=== PATIENT | female | born 1950 | race Caucasian/White ===

== ENCOUNTER 2023-02-11 14:14 | Outpatient (OUT) | payer MEDICARE, SELFPAY ==
--- NOTE | 2023-02-11 14:00 | CA_ITS ---
Patient: NAGI ALLISON Exam Date: 02/11/2023 : 1950 Gender:F Ordering : JAMIA CAR [facility] Admission #: [id number] Family : Order #: [id number] CLICK HERE TO VIEW EXAM ECHOCARDIOGRAM REPORT PROCEDURE: CA ECHO DOPPLER COMPLETE INDICATIONS: Shortness of breath, hypertension, diabetes, COPD, h/o rheumatic fever COMPARISON: None. DESCRIPTION: COMPLETE ECHOCARDIOGRAM Real-time transthoracic echocardiography with 2D, M-mode, spectral and color flow Doppler performed. QUALITY: Technical quality was good. LEFT VENTRICLE: Small chamber size. Proximal septal hypertrophy (sigmoid septum). Normal systolic function. LV EF: Normal left ventricular ejection fraction, (>55%). DIASTOLIC: Normal diastolic function. ATRIAL SEPTUM: LEFT ATRIUM: Mildly dilated. RIGHT ATRIUM: Normal chamber size. RIGHT VENTRICLE: Normal chamber size. Normal right ventricular systolic function. TRICUSPID VALVE: Normal mobility and thickness. No stenosis with mild regurgitation. No evidence of pulmonary hypertension. RVSP 28 mmHg MITRAL VALVE: Mildly thickened with normal mobility. No evidence of mitral valve stenosis. Moderate mitral annular calcification. Mild mitral regurgitation. AORTIC VALVE: Normal trileaflet appearance. No visible sclerosis. Normal leaflet mobility. No evidence of aortic valve stenosis. Trivial aortic regurgitation. AORTIC ROOT: Normal diameter and appearance. PULMONIC VALVE: Normal thickness and mobility. No stenosis. Trivial regurgitation. PERICARDIUM: No evidence of pericardial effusion. IVC: Not well visualized. PLEURA: CONCLUSION: 1. Normal ventricular systolic function. LVEF is 55 to 60%. 2. Normal diastolic function. 3. Mild mitral and tricuspid regurgitation. 4. Normal right-sided pressures. 5. No pericardial effusion. Adult Echocardiography Procedure Report Left Ventricle LVEDD (3.7 - 5.6 cm): 3.36 cm LVESD (2.2 - 4.0 cm): 2.46 cm LVIVS thickness (0.6 - 1.2 cm): 1.10 cm LVPW thickness (0.5 - 1.0 cm): 0.93 cm e': 0.11 m/s E - e': 9.00 LVOT Max Gradient: 4.14 mm[Hg] LVOT Area (cm2): 1.02 m/s Peak Velocity (LVOT): 1.02 m/s Mean Velocity (LVOT): 0.72 m/s LVOT Diameter 1.62 cm, 1.91 cm Left Atrium LA Volume Index (2D A2C): 29.89 ml/m2 Left Atrium Systolic Dimension: 3.16 cm Mitral Valve MV E to A Ratio: 0.84 Mitral Valve A-Wave Peak Velocity: 1.19 m/s Mitral Valve E-Wave Peak Velocity: 0.99 m/s Right Ventricle Aorta AO Root Diam: 2.65 cm Ascending Ao Diam: 2.17 cm Aortic Valve AoV Area (Peak Jarvis): 2.36 cm2, 2.36 cm2 AoV Area (VTI): 2.55 cm2, 2.55 cm2 Peak Velocity(Antegrade Flow): 1.06 m/s Peak Gradient(Antegrade Flow): 4.46 mm[Hg] Mean Velocity(Antegrade Flow): 0.71 m/s Mean Gradient(Antegrade Flow): 2.30 mm[Hg] Velocity Time Integral: 24.29 cm Tricuspid Valve Peak Velocity (Regurgitant Flow): 2.51 m/s Pulmonic Valve Peak Velocity: 0.99 m/s Peak Gradient: 3.65 mm[Hg], 4.14 mm[Hg] Right Atrium Right Atrium Systolic Pressure: 30.55 ml, 30.55 ml Dictated by: Zion Castaneda M.D. on 02/12/2023 at 18:45 Approved by: Zion Castaneda M.D. on 02/12/2023 at 18:51
== END 2023-02-11 14:15 | disposition home or self-care (01) ==
LOC: CARD 14:14
PROVIDERS: Visit Provider Nurse Practitioner Family
DX: R06.02 Shortness of breath (principal)
CPT/HCPCS: 93306

== ENCOUNTER 2023-03-08 12:20 | Outpatient (OUT) | payer MEDICARE, SELFPAY ==
[2023-03-08 13:27] LABS: Anion Gap 12.5; BUN Creatinine Ratio 33.3; Calcium 10.3 mg/dL (8.5-10.1); Carbon Dioxide 23.2 mmol/L (21.0-32.0); Chloride 103 mmol/L (98-107); Estimated GFR (African America >60 (>=60); Estimated GFR (Non-African Ame >60 (>=60); Glucose 110 mg/dL (74-106); Potassium 3.7 mmol/L (3.5-5.1); Sodium 135 mmol/L (136-145)
== END 2023-03-08 12:21 | disposition home or self-care (01) ==
LOC: LAB 12:21
PROVIDERS: Visit Provider Nurse Practitioner Acute Care
DX: I50.32 Chronic diastolic (congestive) heart failure (principal)
CPT/HCPCS: 36415; 80048

== ENCOUNTER 2023-06-16 14:56 | Outpatient (OUT) | payer MEDICARE, SELFPAY | END 2023-06-16 14:57 | disposition home or self-care (01) | LOC: LAB 14:58 | DX: N39.0 Urinary tract infection, site not specified (principal); R30.0 Dysuria | CPT/HCPCS: 87086; 87150; 87186 ==

== ENCOUNTER 2023-07-10 09:01 | Outpatient (OUT) | payer MEDICARE, SELFPAY ==
[2023-07-10 09:27] LABS: Basophils Absolute Auto 0.1 10^3/uL (0.0-0.1); Basophils Percent Auto 1.2 % (0.2-2.0); Eosinophils Absolute Auto 0.3 10^3/uL (0.0-0.7); Eosinophils Percent Auto 3.8 % (0.9-7.0); Hematocrit 38.9 % (36.0-48.0); Hemoglobin 12.7 g/dL (12.0-16.0); Immature Granulocytes Abs Auto 0.03 10^3/uL (0.00-0.03); Immature Granulocytes Pct Auto 0.4 % (0.0-0.5); Lymphocytes Absolute Auto 1.5 10^3/uL (1.2-3.8); Lymphocytes Percent Auto 22.7 % (20.5-60.0); Mean Corpuscular HGB Conc 32.6 g/dL (29.9-35.2); Mean Corpuscular Hemoglobin 30.2 pg (26.7-34.0); Mean Corpuscular Volume 92.4 fL (81.0-99.0); Mean Platelet Volume 9.7 fL (9.5-13.5); Monocytes Absolute Auto 0.5 10^3/uL (0.3-0.8); Monocytes Percent Auto 6.9 % (1.7-12.0); Neutrophils Absolute Auto 4.4 10^3/uL (1.4-6.5); Platelet Count 294 10^3/uL (150-450); Red Blood Count 4.21 10^6/uL (4.20-5.40); Red Cell Distribution Width 12.9 % (11.0-15.0); White Blood Count 6.8 10^3/uL (4.0-11.0)
[2023-07-10 11:14] LABS: Alanine Aminotransferase 23 U/L (14-59); Albumin Globulin Ratio 1.2; Albumin Level 4.1 g/dL (3.4-5.0); Alkaline Phosphatase 68 U/L (46-116); Anion Gap 16.3; Aspartate Amino Transferase 16 U/L (15-37); BUN Creatinine Ratio 34.2; Bilirubin Total 0.4 mg/dL (0.2-1.0); Calcium 9.6 mg/dL (8.5-10.1); Chloride 108 mmol/L (98-107); Chol HDL Ratio 2.7; Cholesterol 158 mg/dL (<=200); Estimated GFR (African America >60 (>=60); Estimated GFR (Non-African Ame >60 (>=60); Globulin 3.4 g/dL; Glucose 103 mg/dL (74-106); HDL Cholesterol 59 mg/dL (40-60); LDL Cholesterol Calculated 79.4 mg/dL; Potassium 4.3 mmol/L (3.5-5.1); Sodium 144 mmol/L (136-145); Total Protein 7.5 g/dL (6.4-8.2); Triglycerides 98 mg/dL (<=150); VLDL CHOLESTEROL 19.6 mg/dL
== END 2023-07-10 09:02 | disposition home or self-care (01) ==
LOC: LAB 09:03
DX: K21.9 Gastro-esophageal reflux disease without esophagitis (principal); I10 Essential (primary) hypertension; Z51.81 Encounter for therapeutic drug level monitoring; Z13.6 Encounter for screening for cardiovascular disorders
CPT/HCPCS: 36415; 80053; 80061; 85025

== ENCOUNTER 2023-07-15 10:18 | Outpatient (OUT) | payer MEDICARE, SELFPAY ==
--- NOTE | 2023-07-15 10:24 | MR_ITS ---
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 TECHNIQUE: Multiplanar, multisequential MRI images of cervical spine were obtained with without contrast. FINDINGS: There is normal physiologic cervical lordosis. The vertebral heights are relatively preserved. The cervicomedullary junction is unremarkable. No definite signal abnormality within the spinal cord is noted. There is mild enlargement of the central spinal canal at the level of C7-T1 measuring approximately 2.2 cm craniocaudally. It measures 2.2 mm anteroposteriorly. This most likely consistent with mild syrinx. There are mild disc osteophyte complex associated with uncovertebral joint arthrosis from C3 to T1. Mild right neuroforaminal narrowing and no canal stenosis at the level of C2-C3 is noted. At the level of C3-C4, there is moderate right and mild left neuroforaminal narrowing and no canal stenosis. At the level of C4-C5, there is moderate right and mild left neuroforaminal narrowing and no canal stenosis. At the level of C5-C6, there is moderate bilateral neuroforaminal narrowing and no canal stenosis. At the level of C6-C7, there is mild bilateral neuroforaminal narrowing and no canal stenosis. Level of C7-T1 is unremarkable. No definite muscular or ligamentous injury is noted. MR/MR cervical spine wo con IMPRESSION: Mild degenerative changes of the cervical spine in particular at C6-C7. Small syrinx from C7 to T1. Electronically authenticated by: NILDA HUTCHISON Date: 07/15/2023 12:40
== END 2023-07-15 10:19 | disposition home or self-care (01) ==
LOC: MRI 10:18
PROVIDERS: Visit Provider Psychiatry & Neurology Neurology
DX: G95.89 Other specified diseases of spinal cord (principal); G95.0 Syringomyelia and syringobulbia; M50.30 Other cervical disc degeneration, unspecified cervical region
CPT/HCPCS: 72141

== ENCOUNTER 2023-10-25 15:37 | Outpatient (OUT) | payer MEDICARE, SELFPAY ==
--- NOTE | 2023-10-25 15:43 | XR_ITS ---
The [address] [address] Patient Name: NAGI ALLISON MRN: [id number] date: 1950 Sex: F Assigned Patient Location: [facility] Current Patient Location: [facility] Accession/Order Number: [id number] Exam Date: 10/25/2023 15:51 Report Date: 10/25/2023 16:06 At the request of: BARTOLO CARVALHO Procedure: XR chest 2V EXAM: XR chest 2V HISTORY: wheezing R06.2, Shortness of breath R06.02 COMPARISON: 08/01/2019 TECHNIQUE: Upright PA and lateral chest x-ray FINDINGS: The heart is not enlarged and the vasculature is not distended. No acute infiltrate, effusion or pneumothorax is identified. Scoliosis and mild degenerative changes are seen in the spine. XR/XR chest 2V IMPRESSION: No acute infiltrate or evidence of cardiac decompensation. The study is a bit limited by the patient's depth of inspiration. Given the differences in technique, the overall appearance of the chest is essentially unchanged. Electronically authenticated by: MARÍA METZ Date: 10/25/2023 16:06
== END 2023-10-25 15:38 | disposition home or self-care (01) ==
LOC: RAD 15:39
PROVIDERS: Visit Provider Psychiatry & Neurology Neurology
DX: R06.2 Wheezing (principal); R06.02 Shortness of breath
CPT/HCPCS: 71046

== ENCOUNTER 2024-02-20 12:08 | Emergency (ER) | payer MEDICARE, SELFPAY ==
[2024-02-20 12:21] VITALS: BP 147/90; PULSE 83; TEMP 36.8; O2SAT 97; BMI 27.9
--- NOTE | 2024-02-20 14:54 | ED_ITS ---
HPI HPI - General Adult General Chief complaint: Ear Stated complaint: FOREIGN BODY IN EAR Time Seen by Provider: 02/20/24 13:39 Source: patient Mode of arrival: walk-in History of Present Illness HPI narrative: 73-year-old female to the emergency department chief complaint of hearing aid cushion stuck in her left ear. She reports she took it out last night and noticed it was missing. No discomfort. She would like it removed. Related Data Allergies Allergy/AdvReac Type Severity Reaction Status Date / Time amoxicillin Allergy Severe Unknown Verified 02/20/24 12:31 azithromycin Allergy Severe Unknown Verified 02/20/24 12:31 bacitracin Allergy Severe Unknown Verified 02/20/24 12:31 chlorhexidine Allergy Severe Unknown Verified 02/20/24 12:33 [From Hibiclens] clindamycin Allergy Severe Unknown Verified 02/20/24 12:33 latex Allergy Severe Unknown Verified 02/20/24 12:31 meloxicam [From Mobic] Allergy Severe Unknown Verified 02/20/24 12:33 metronidazole Allergy Severe Unknown Verified 02/20/24 12:31 montelukast Allergy Severe Unknown Verified 02/20/24 12:31 neomycin Allergy Severe Unknown Verified 02/20/24 12:31 [From Neosporin ([id number])] polymyxin B Allergy Severe Unknown Verified 02/20/24 12:31 [From Neosporin ([id number])] Sulfa (Sulfonamide Allergy Severe Unknown Verified 02/20/24 12:33 Antibiotics) Opioid HPI Opioid Management Most Recent Opioid Data: No Data to Display Review of Systems ROS Status of ROS 10 or more systems reviewed and unremark able except as noted in history and below Exam Narrative Exam Narrative: VITALS: I have reviewed the triage vital signs. GENERAL: Well developed, well appearing adult in no acute distress. HENT: Normocephalic, atraumatic. Hearing is grossly intact. Nares grossly patent and without discharge. Mucous membranes moist. Hearing aid cushion midway in the external auditory canal on the left PSYCH: Mood, affect, and interaction is appropriate to the setting. Constitutional Vital Signs, click to edit/add: Last Vital Signs Temp 98.2 F 02/20/24 12:21 Pulse 83 02/20/24 12:21 Resp 14 02/20/24 12:21 BP 147/90 H 02/20/24 12:21 Pulse Ox 97 02/20/24 12:21 O2 Del Method Room Air 02/20/24 12:21 Course Vital Signs Vital signs: Vital Signs Temperature 98.2 F 02/20/24 12:21 Pulse Rate 83 02/20/24 12:21 Respiratory Rate 14 02/20/24 12:21 Blood Pressure 147/90 H 02/20/24 12:21 Pulse Oximetry 97 02/20/24 12:21 Oxygen Delivery Method Room Air 02/20/24 12:21 Temperature 98.2 F 02/20/24 12:21 Pulse Rate 83 02/20/24 12:21 Respiratory Rate 14 02/20/24 12:21 Blood Pressure 147/90 H 02/20/24 12:21 Pulse Oximetry 97 02/20/24 12:21 Oxygen Delivery Method Room Air 02/20/24 12:21 Medical Decision Making MDM Narrative Medical decision making narrative: Cushion easily removed with steps. No residual foreign bodies. TM intact. Patient was discharged home. Discharge Plan Discharge Stand Alone Forms: Portal Instructions Chief Complaint: Ear Clinical Impression: Ear foreign body Patient Disposition: Home, Self-Care Time of Disposition Decision: 14:25 Condition: Good Mode of Transportation: Private Vehicle Print Language: Prydeinig Instructions: Ear Foreign Body (ED) Referrals: LISA GRAHAM [Primary Care Provider] - 1 week Discharge Date/Time: 02/20/24 14:31
== END 2024-02-20 14:31 | disposition home or self-care (01) ==
PROVIDERS: Emergency Provider Student in an Organized Health Care Education/Training Program
DX: T16.2XXA Foreign body in left ear, initial encounter (principal); W44.G1XA Audio device entering into or through a natural orifice, initial encounter
CPT/HCPCS: 69200; 99281

== ENCOUNTER 2024-07-07 08:54 | Outpatient (OUT) | payer MEDICARE, SELFPAY ==
--- OUTSIDE RECORDS SUMMARY | 2024-07-07 08:59 | XMS_ITS | CCD ---
Author Organization [facility]ini[facility] Care Team Providers Care Delicatessen Department Manager Name Role Phone Lisa Graham Unavailable Piyush Bo Unavailable [phone] Teto Veloz Unavailable GladysLisa clark Unavailable Madeline Duffy Unavailable Madeline Hernandez Primary Care Provider [phone] Terrell Rodriguez Unavailable GLADYS, LISA Primary Care Unavailable JOSEP, JAMIA Admitting Unavailable JOSEP, JAMIA Consulting Unavailable JOSEP, JAMIA Attending Unavailable CRISTIAN CARINDA Attending Unavailable MINERVA HERRERA Consulting Unavailable GLADYS, LISA Primary Care Unavailable JOSEP, JAMIA Admitting Unavailable JOSEP, JAMIA Consulting Unavailable FOSTER COLES Consulting Unavailable BAMBI SIMMONS Admitting Unavailable BAMBI SIMMONS Attending Unavailable GLADYS, LISA Primary Care Unavailable JANETTE ZAMUDIO Consulting Unavailable GLADYS, LISA Primary Care Unavailable GLADYS, LISA Attending Unavailable GLADYS, LISA Admitting Unavailable GLADYS, LISA Primary Care Unavailable GLADYS, LISA Consulting Unavailable GLADYS, LISA Attending Unavailable GLADYS, LISA Admitting Unavailable Gladys, DO Lisa Pastrana Primary Care Provider DO Lisa Graham Attending Provider MD Piyush Bo Attending Provider Mick Patterson Unavailable Marco Antonio Llamas Unavailable DO Lisa Graham Primary Care Provider [phone] Gladys, DO Lisa N Attending Provider Gladys, DO Lisa N Primary Care Provider [phone] Gladys, DO Lisa N Attending Provider EPIFANIO LOZADA Attending Unavailable JAMIA CAR Attending Unavailable DEN KEY Attending Unavailable NICOLE BECKHAM Attending Unavailable Lisa Graham MD Primary Care Provider [phone] Gladys, DO Lisa N Primary Care Provider Gladys, DO Lisa N Attending Provider Gladys, DO Lisa N Admit Provider Leigh, DO Lambert Jernigan Emergency Provider [phone] GARETH Chen Other Provider Unavailable MD Rober Damico Other Provider MD Dolores Frausto Other Provider [phone] MD Emmanuelle Tipton Other Provider Terrell Rodriguez Unavailable [phone] Gladys DOLisa Primary Care Provider Unavailable Foster Gutierrez RPh Unavailable Gladys DO, Lisa Bernal Primary Care Provider Unavailable ANDREA DALEY Attending Unavailable GLADYS, LISA N Referring Unavailable GLADYS, LISA N Primary Care Unavailable Gladys, DO Lisa N Primary Care Provider [phone] AWILDA Duffy Attending Provider Gladys, Lisa N Primary Care Unavailable Gladys, Lisa N Attending Unavailable Gladys, Lisa N Admitting Unavailable Gladys, Lisa N Primary Care Unavailable Gladys, Lisa N Attending Unavailable Gladys, Lisa N Admitting Unavailable Gladys, Lisa N Primary Care Unavailable Madeline Duffy Admitting Unavailable Madeline Duffy Attending Unavailable Madeline Duffy Admitting Unavailable Gladys, Lisa N Primary Care Unavailable Madleine Duffy Attending Unavailable Sylvia Chen Consulting Unavailable Gladys, Lisa N Primary Care Unavailable Gladys, Lisa N Attending Unavailable Lisa Graham Admitting Unavailable Rober Damico Consulting Unavailable Dolores Frausto Consulting Traec Tipton, Emmanuelle Consulting Unavailable Lisa Graham Primary Care Unavailable Lisa Graham Attending Unavailable Lisa Graham Admitting Unavailable LISA GRAHAM Primary Care Unavailab le LISA GRAHAM Primary Care Unavailab le SROUBEK, GARLAND Referring Unavailable SROUBEK, GARLAND Admitting Unavailable MADELINE HERNANDEZ LENNY Primary Care Unavailab le ANJALI, EMMANUELLE GUPTA Referring Unavailab le SROUBEK, GARLAND Attending Unavailable LISA GRAHAM Primary Care Unavailab le SROUBEK, GARLAND Referring Unavailable LISA GRAHAM Primary Care Unavailab le SROUBEK, GARLAND Referring Unavailable LISA LIEBERMAN Attending Unavailable BARTOLO RAMÍREZ Attending Unavailable BARTOLO RAMÍREZ Attending Unavailable JR. MASSEY GEORGE C Attending Unavaila LISA Prado Referring Unavailable BARTOLO RAMÍREZ Attending Unavailable BARTOLO RAMÍREZ Attending Unavailable JR. LAKIA, DOLORES Hopkins Referring Unavaila ricardo MASSEY JR., DOLORES Hopkins Attending Unavaila ble Allergies Allergy Classification Reported Allergen(s) Allergy Type Date of Onset Reaction(s) Facility (20 sources) Amoxicillin; Translations: [AMOXICILLIN] Drug Allergy 10-17-19 14 Rash, Unknown [facility] (20 sources) Azithromycin; Translations: [AZITHROMYCIN] Drug Allergy 10-17-19 14 Hives, Unknown [facility] (20 sources) Bacitracin; Translations: [BACITRACIN] Drug Allergy 10-20-19 18 Unknown, [facility] (20 sources) Bacitracin / Neomycin / Polymyxin B Drug Allergy Unknown [facility] Other (20 sources) Chlorhexidine; Translations: [CHLORHEXIDINE] Drug Allergy 07-12-20 19 [facility] (20 sources) Clindamycin; Translations: [CLINDAMYCIN] Drug Allergy 10-17-19 14 Hives, Unknown [facility] (20 sources) Latex; Translations: [LATEX] Propensity to adverse reactions 06-02-20 17 Unknown, [facility] (20 sources) meloxicam; Translations: [Mobic] Drug Allergy 05-11-20 13 Unknown [facility] Repository (20 sources) metroNIDAZOLE; Translations: [METRONIDAZOLE] Drug Allergy 06-25-20 04 Unknown [facility] (20 sources) Sulfacetamide Drug Allergy 10-27-19 24 Unknown, Unknown Reaction [facility] (17 sources) bacitracin / neomycin / polymyxin b; Translations: [NEOMYCIN-BACITRACI N-POLYMYXIN] Drug Allergy 10-17-19 14 Rash [facility] (20 sources) meloxicam; Translations: [MELOXICAM] Drug Allergy 10-17-19 14 Rash, Itching [facility] (16 sources) metroNIDAZOLE; Translations: [METRONIDAZOLE HCL] Drug Allergy 10-17-19 14 Rash, Itching [facility] (20 sources) Sulfonamides (Antibiotic); Translations: [SULFA (SULFONAMIDE ANTIBIOTICS)] Drug Allergy 06-25-20 04 Rash, Hives, Unknown [facility] (1 source) Amoxicillin Drug Allergy 03-17-20 13 [facility] (1 source) Bacitracin Drug Allergy 03-17-20 13 [facility] (1 source) Chlorhexidine Drug Allergy 03-17-20 13 [facility] (1 source) Clindamycin Drug Allergy 03-17-20 13 [facility] Rep[facility] (1 source) Latex Drug allergy (disorder) 05-11-20 13 [facility] Repository (1 source) metroNIDAZOLE Drug Allergy 03-17-20 13 [facility] (20 sources) Neomycin; Translations: [NEOMYCIN] Drug Allergy 03-17-20 13 Rash [facility] (1 source) Sulfonamides (Antibiotic) Drug allergy (disorder) 03-17-20 13 [facility] (20 sources) Clavulanate; Translations: [clavulanic acid] Drug Allergy 07-12-20 19 [facility] (20 sources) montelukast; Translations: [montelukast] Drug Allergy 07-12-20 19 [facility] (18 sources) polymyxin B; Translations: [POLYMYXIN B] Allergy to substance 07-15-20 18 [facility] (2 sources) Adhesive agent; Translations: [ADHESIVE] Propensity to adverse reactions to drug (disorder) 02-17-20 22 [facility] Repository (6 sources) Aspirin; Translations: [ASPIRIN] Drug Allergy 12-16-19 23 Unknown [facility] Repository (2 sources) Chlorhexidine; Translations: [CHLORHEXIDINE GLUCONATE] Drug Allergy 06-02-20 17 [facility] Repository (7 sources) Cyproheptadine; Translations: [CYPROHEPTADINE] Drug Allergy 10-20-19 18 [facility] Repository (7 sources) Sulfamethoxazole / Trimethoprim; Translations: [SULFAMETHOXAZOLE-T RIMETHOPRIM] Drug Allergy 06-02-20 17 [facility] Repository (1 source) NEOSPORIN DAILY BODY; Translations: [NEOSPORIN DAILY BODY] Propensity to adverse reactions to drug (disorder) 12-29-19 23 [facility] Repository (6 sources) BACITRACIN-POLYMYXI N B; Translations: [BACITRACIN-POLYMYX IN B] Propensity to adverse reactions to drug (disorder) 07-27-20 14 Unknown, Rash [facility] Repository (2 sources) NEOMYCIN-BACITRACNZ N-POLYMYXNB; Translations: [NEOMYCIN-BACITRACN ZN-POLYMYXNB] Propensity to adverse reactions to drug (disorder) 07-27-20 14 [facility] Repository (5 sources) Latex Allergy to substance 12-16-19 23 Unknown [facility] (5 sources) meloxicam Drug Allergy 12-16-19 23 Unknown [facility] (5 sources) Neomycin Drug Allergy 12-16-19 23 Unknown [facility] (5 sources) Wound Dressing Adhesive Drug Allergy 12-30-19 23 [facility] (18 sources) Amoxicillin / Clavulanate; Translations: [AMOXICILLIN-POT CLAVULANATE] Drug Allergy 11-03-19 24 Rash [facility] Work Phone: (1 source) Amoxicillin Drug Allergy 04-24-20 [facility] Repository (1 source) Azithromycin Drug Allergy 04-24-20 [facility] Repository (1 source) Bacitracin Drug Allergy 04-24-20 [facility] Repository (1 source) Chlorhexidine Drug Allergy 04-24-20 [facility] Repository (1 source) Clindamycin Drug Allergy 04-24-20 [facility] Repository (1 source) Latex Drug allergy (disorder) 04-24-20 [facility] Repository (1 source) meloxicam Drug Allergy 04-24-20 [facility] Repository (1 source) metroNIDAZOLE Drug Allergy 04-24-20 [facility] Repository (1 source) Neomycin Drug Allergy 04-24-20 [facility] Repository (1 source) Sulfacetamide Drug Allergy 11-29-19 [facility] Repository (1 source) Sulfonamides (Antibiotic) Drug allergy (disorder) 04-24-20 [facility] Repository Medications Current Medications Medication Drug Class(es) Dates Sig (Normalized) Sig (Original) 30 ACTUAT fluticasone furoate 0.2 MG/ACTUAT / umeclidinium 0.0625 MG/ACTUAT / vilanterol 0.025 MG/ACTUAT Dry Powder Inhaler [Trelegy] (14 sources) Start: 03-06-2020 take 1 puff(s) by inhalation once daily Trelegy Ellipta 200-62.5-25 MCG/ACT 1 puff Inhalation Once a day for 90 days Feb, Active Start: 03-06-2020 acetaminophen 500 mg oral capsule (20 sources) Start: 01-10-2024 End: 03-28-2024 take 500 mg by mouth every six hours Acetaminophen Active 500 MG PO Every 6 hours March 28, 2024 1:15pm Start: 11-05-2023 take 2 tablets by mo uth every six hours as needed acetaminophen (TYLENOL) 500 mg tablet Take 2 tablets by mouth every 6 hours as needed for pain. 11/05/2023 Active Comment on above: Take 2 tablets by mo uth every 6 hours as needed for pain. 200 actuat albuterol 0.09 mg/actuat dry powder inhaler (20 sources) beta2-Adrenergic Agonist Start: 01-10-2024 End: 04-24-2024 Albuterol Sulfate Active 2 INH INHALATION Every 4 hours 3 90 April 24, 2024 1:43pm Dispense #3 inhalers Start: 11-01-2023 End: 01-10-2024 Albuterol Sulfate Discontinu ed 1 INH INHALATION Every 6 hours November 01, 2023 12:00am January 10, 2024 1:22pm Start: 01-21-2022 Albuterol Sulf ate (2.5 MG/3ML) 0.083% 3 ml as needed Inhalation every 6 hrs for 30 day(s) Jan, Active Start: 01-21-2022 Start: 09-30-2018 End: 10-26-2023 take 1 puff(s) by inhalation every six hours Albuterol Sulfate (Proair Hfa) 90 mcg/actuation Hfa Aerosol Inhaler Discontinued 2 PUFF INHALATION Q6H September 30, 2018 1:00am October 26, 2023 4:10pm take 2 puff(s) by in halation every four hours for wheezing albuterol HFA 90 mcg/act inhaler Inhale 2 puffs every 4 (four) hours if needed for wheezing Active ALBUTEROL SULFAT E (PROAIR HFA INHALATION) Inhale as instructed every 4 hours as needed. Active albuterol 1.25 M G/3ML nebulizer solution Take 1.25 mg by nebulization. 0 Active ALBUTEROL SULFAT E (PROAIR HFA INHALATION) Inhale as instructed every 4 hours as needed. 0 Active Comment on above: Inhale as instructed every 4 hours as needed. Allergy 10 MG (20 sources) take 1 tablet by mouth once daily Allergy 10 MG 1 tablet Orally Once a day Active apixaban 5 mg oral tablet (18 sources) Factor Xa Inhibitor Start: 12-16-2023 End: 06-27-2024 take 1 tablet by mouth twice daily apixaban (ELIQUIS) 5 mg tab(s) Take 1 tablet by mouth two times a day. 60 tablet 5 06/27/2024 Active Aspir-81 81 MG (20 sources) take 1 tablet by mouth once daily Aspir-81 81 MG 1 tablet Orally Once a day OTC Active aspirin 81 mg delayed release oral tablet (20 sources) Platelet Aggregation Inhibitor, Nonsteroidal Anti-inflammatory Drug Start: 09-30-2018 take 1 tablet by mouth once daily Aspirin (Aspir-81) 81 mg Tablet,Delayed Release (Dr/Ec) Active 81 MG PO Daily September 30, 2018 1:00am Comment on above: Take 81 mg by mouth once daily. baclofen 5 mg oral tablet (20 sources) gamma-Aminobutyric Acid-ergic Agonist Start: 03-28-2024 End: 03-24-2025 take 1 tablet by mouth in the morning baclofen (Lioresal) 5 MG tablet Indications: Muscle spasm Take 1 tablet (5 mg) by mouth in the morning and 1 tablet (5 mg) before bedtime. 180 tablet 3 03/29/2024 03/24/2025 Active Start: 02-15-2024 baclofen (Johann esal) 10 MG tablet Indications: Muscle spasm TAKE 1 TABLET IN THE MORNING, AT NOON, IN THE EVENING, AND 1 BEFORE BEDTIME 360 tablet 2 02/15/2024 Active Start: 10-26-2023 End: 03-28-2024 take 1 tablet by mouth once daily as needed Baclofen Discontinued 5 MG PO Daily October 26, 2023 12:00am March 28, 2024 1:18pm FreeTextSi tablet as needed Orally Once a day; Note: Source Status: Taking; Provider: Dr Cordoba Start: 08-19-2023 End: 09-18-2023 take 1 tablet by mouth in the morning, then take 1 tablet by mouth in the evening, then take 1 tablet by mouth at bedtime baclofen (Lioresal) 5 MG tablet Indications: Muscle spasm Take 1 tablet (5 mg) by mouth in the morning and 1 tablet (5 mg) in the evening and 1 tablet (5 mg) before bedtime. 90 tablet 3 08/19/2023 Active Start: 09-30-2018 End: 09-10-2023 take 10 mg by mouth three times daily Baclofen Active 10 MG PO Three times daily September 30, 2018 1:00am baclofen 5 mg ta blet Take 10 mg by mouth three times a day. Takes 15 mg AM, 10 mg in afternoon and 15 mg PM Active take 1 tablet by perfecto th every twenty-four hours Baclofen 5 MG 1 tablet as needed Orally Once a day Active Comment on above: Take 10 mg by mouth three times daily. Take 10 mg by mouth three times a day. Takes 15 mg AM, 10 mg in afternoon and 15 mg PM biotin 10 mg oral tablet (20 sources) Start: 06-18-2023 take 1 tablet by mouth at bedtime Biotin Maximum Strength 51137 MCG tablet Indications: Spinal cord disorder (CMS/HCC) , Syrinx, persistent central canal (CMS/HCC) , Traumatic syrinx (CMS/HCC) TAKE 1 TABLET (10 MG) BY MOUTH IN THE MORNING AND BEFORE BEDTIME 180 tablet 4 06/18/2023 Active Start: 09-30-2018 take 1000 ug by mouth once luis enrique ly Biotin Active 1000 MCG PO Daily September 30, 2018 1:00am take 1 capsule by mo [facility] once daily Biotin 10,000 mcg cap Take 10,000 mcg by mouth once daily. Active take 1 tablet by perfecto th every twenty-four hours Biotin 10 MG 1 tablet Orally Once a day Dr. Ramírez Active take 2 tablets by mo [facility] once daily Biotin 1000 MCG 2 tab Orally Once a day Active take 1000 ug by mouth twice chandan y biotin 1,000 mcg chew Take by mouth twice daily. 0 Active take 2 tablets by mo [facility] once daily Biotin 1000 MCG 2 tab Orally Once a day Active Comment on above: Take by mouth twice daily. Take 10,000 mcg by [facility] once daily. Calcium Carbonate (20 sources) take 1 tablet by mouth once daily calcium carbonate (CALCIUM 600) 600 mg calcium (1,500 mg) tab Take 600 mg by mouth once daily. Active CALCIUM CARBONAT E (TUMS ORAL) Take 2 tablets by mouth as needed (indigestion). Active CALCIUM CARBONAT E (TUMS ORAL) Take 2 tablets by mouth as needed (indigestion). 0 Active CALCIUM CARBONAT E (TUMS ORAL) Take 2 tablets by mouth as needed. 0 Active take 1 tablet by [facility] every twelve hours Comment on above: Take 2 tablets by mo [facility] as needed. Take 2 tablets by mo [facility] as needed (indigestion). Take 600 mg by mouth once daily. cycloSPORINE 0.5 mg/ml ophthalmic suspension (20 sources) Calcineurin Inhibitor Immunosuppressant Start: 09-30-19 19 take 1 drop(s) into the eye(s) every twelve hours Cyclosporine (Restasis) 0.05 % Dropperette Active 1 DROPS EYE-BOTH Q12H September 30, 2018 1:00am take 1 drop(s) into the eye(s) twice daily cycloSPORINE (RESTASIS) 0.05 % ophthalmi c emulsion Use 1 Drop in both eyes twice daily. Active cycloSPORINE (Re stasis) 0.05 % ophthalmic emulsion every 12 (twelve) hours. Active Restasis 0.05 % 1 into affected eye Ophthalmic Twice a day Active take 1 drop(s) into the eye(s) twice daily cycloSPORINE (RESTASIS) 0.05 % ophthalmi c emulsion Use 1 Drop in both eyes twice daily. 0 Active Restasis 0.05 % 1 into affected eye Ophthalmic Twice a day Active Comment on above: Use 1 Drop in both e yes twice daily. Cyclosporine (Restasis) 0.05 % dropperette (11 sources) Start: take 1 drop(s) into the eye(s) every twelve hours Cyclosporine (Restasis) 0.05 % dropperette Active 1 DROPS EYE-BOTH Every 12 hours November 01, 2023 12:00am dexamethasone 2 mg oral tablet (5 sources) Corticosteroid Start: End: take 1 tablet by mouth in the morning dexAMETHasone (Decadron) 2 MG tablet Indications: Traumatic syrinx (CMS/HCC) Take 1 tablet (2 mg) by mouth in the morning and 1 tablet (2 mg) in the evening. Take with meals. Do all this for 10 days. 20 tablet 06/29/2024 07/09/2024 Active diclofenac sodium 75 mg delayed release oral tablet (1 source) Nonsteroidal Anti-inflammatory Drug Start: 023 take 1 tablet by mouth every twelve hours Diclofenac Sodium 75 MG 1 tablet as needed Orally Twice a day for 30 days Apr, Active dicyclomine hydrochloride 20 mg oral tablet (20 sources) Anticholinergic Start: take 1 tablet by mouth every eight hours Dicyclomine HCl 20 MG 1 tablet Orally Three times a day for 30 day(s) Apr, Active empagliflozin 10 mg oral tablet (20 sources) Sodium-Glucose Cotransporter 2 Inhibitor Start: End: empagliflozin (Jardiance) 10 MG Daily 10/28/2023 Active Comment on above: Take 10 mg by mouth daily with breakfast. fluticasone propionate 0.05 mg/actuat metered dose nasal spray (20 sources) Corticosteroid Start: 019 take 1 spray(s) nasal route once daily as needed Flonase Allergy Relief 50 MCG/ACT 1 spray in each nostril Nasally Once a day for 30 days PRN Mar, Active Start: 03-28-2019 Start: 03-28-2019 take 1 spray(s) nasa l route twice daily Flonase Allergy Relief 50 MCG/ACT 1 spray in each nostril Nasally twice a day for 30 day(s) Mar, Active Start: 09-30-2018 End: 10-26-2023 Fluticasone Propionate (Flon ase Allergy Relief) 50 mcg/actuation [place],Suspension Discontinued 2 SPRAY INTRANASAL Daily September 30, 2018 1:00am October 26, 2023 4:10pm fluticasone (David nase) 50 MCG/ACT nasal spray 1 (one) time each day at the same time. 0 Active 30 actuat fluticasone furoat e 0.1 mg/actuat / umeclidinium 0.0625 mg/actuat / vilanterol 0.025 mg/actuat dry powder inhaler (20 sources) Anticholinergic, Corticosteroid, beta2-Adrenergic Agonist Start: 03-06-2020 Start: 03-06-2020 take 1 puff(s) by in halation once daily Trelegy Ellipta 100-62.5-25 MCG/INH 1 puff Inhalation Once a day for 90 day(s) Feb, Active Vgiktmjyrdf-Awgwetmve-Tpauts er (20 sources) Start: 01-10-2024 Yfmsidwqivy-Efkpveeux-Ckkhtf er (Trelegy Ellipta) 200-62.5-25 mcg blister with device Active 1 INH INHALATION Daily 180 90 January 10, 2024 1:20pm Rinse after use; Dispense #3 inhalers Start: 11-01-2023 End: 01-10-2024 Yewtchahveu-Clmmehhnp-Rzcsaz er (Trelegy Ellipta) 200-62.5-25 mcg blister with device Discontinued 1 INH INHALATION Daily November 01, 2023 12:00am January 10, 2024 1:22pm Start: 11-01-2023 Fluticasone-Um eclidin-Vilanter (Trelegy Ellipta) 200-62.5-25 mcg blister with device Active 1 INH INHALATION Daily November 01, 2023 12:00am Start: 10-26-2023 End: 11-01-2023 take 1 puff(s) by inhalation once daily Kojreeldtlr-Upaqgcohw-Ibigxtes (Trelegy Ellipta) 200-62.5-25 mcg blister with device Discontinued 1 PUFF INHALATION Daily October 26, 2023 12:00am November 01, 2023 6:33pm FreeText[employer] puff Inhalation Once a day; Note: Source Status: Taking; Refills: 3; Provider: Dr Patterson Start: 10-26-2023 take 1 puff(s) by inhalation once daily Brosmaaspaj-Etukjlgkv-Solyvwyd (Trelegy Ellipta) 200-62.5-25 mcg blister with device Active 1 PUFF INHALATION Daily October 26, 2023 12:00am FreeTextSi puff Inhalation Once a day; Note: Source Status: Taking; Refills: 3; Provider: Dr Patterson zberxmrqqhv-tmyafkjnu-ldrdog er (TRELEGY ELLIPTA) 200-62.5-25 mcg inhalation powder (14 sources) take 1 puff(s) by inhalation once daily jgywiabuids-oidteflov-svrzvgzk (TRELEGY ELLIPTA) 200-62.5-25 mcg inhalation powder Inhale 1 Puff as instructed once daily. Active take 1 puff(s) by in halation once daily chntwrncimz-bgxanlbbl-hvhxaoax (TRELEGY ELLIPTA) 200-62.5-25 mcg inhalation powder Inhale 1 Puff as instructed once daily. 0 Active Comment on above: Inhale 1 Puff as ins tructed once daily. furosemide 40 mg oral tablet (20 sources) Loop Diuretic Start: 03-28-2024 take 1 tablet by mouth every other day Furosemide (Lasix) 40 mg tablet Active 40 MG PO .qod March 28, 2024 1:17pm Start: 01-13-2024 End: 03-28-2024 take 1 tablet by mouth once daily Furosemide (Lasix) 40 mg tablet Discontinued 40 MG PO Daily January 13, 2024 1:57pm March 28, 2024 1:18pm Start: 11-01-2023 End: 01-13-2024 take 1 tablet by mouth twice daily Furosemide (Lasix) 40 mg tablet Discontinued 40 MG PO Twice daily November 01, 2023 12:00am January 13, 2024 1:57pm Start: 10-27-2023 End: 11-01-2023 take 1 tablet by mouth once daily Furosemide (Lasix) 40 mg tablet Discontinued 40 MG PO Daily October 27, 2023 3:11pm November 01, 2023 6:33pm Start: 09-30-2018 End: 10-27-2023 take 1 tablet by mouth twice daily Furosemide (Lasix) 40 mg Tablet Discontinued 40 MG PO Twice daily September 30, 2018 1:00am October 27, 2023 3:11pm take 2 tablets by mo ut twice daily as needed Lasix 40 MG 2 tabs Orally bid for 90 day(s) PRN Not-Taking Comment on above: Take 40 mg by mouth twice daily as needed. Take 40 mg by mouth once daily. Handicap placards as directed (5 sources) Start: Handicap placards as directed as directed as directed as directed Oct, Active hydroCHLOROthiazide 12.5 mg / losartan potassium 50 mg oral tablet (2 sources) Thiazide Diuretic, Angiotensin 2 Receptor Chela take 1 tablet by mouth in the morning losartan-hydroCHLO ROthiazide (Hyzaar) 50-12.5 MG tablet Take 1 tablet by mouth in the morning. 0 Active hyoscyamine sulfate 0.125 mg sublingual tablet (20 sources) Start: take 1 tablet under the tongue twice daily as needed Hyoscyamine Sulfate Active 0.125 MG SUBLINGUAL Twice daily April 26, 2024 4:00pm 1 tablet under the tongue and allow to dissolve as needed Start: 10-26-2023 End: 04-26-2024 take 1 tablet under the tongue four times daily as needed Hyoscyamine Sulfate Discontinued 0.125 MG SUBLINGUAL Daily March 28, 2024 1:22pm April 26, 2024 4:03pm FreeTextSi tablet under the tongue and allow to dissolve as needed Sublingual qid; Note: Source Status: Taking; Refills: 5; Provider: Muriel Jernigan Start: 08-09-2023 hyoscyamine (L evsin) 0.125 MG SL tablet DISSOLVE 1 TABLET UNDER TONGUE 4 TIMES A DAY NEEDED 08/09/2023 Active Start: 01-14-2023 take 1 tablet under the tongue four times daily as needed Hyoscyamine Sulfate 0.125 MG 1 tablet under the tongue and allow to dissolve as needed Sublingual qid for 30 days Apr, Active Start: 01-14-2023 take 1 tablet under the tongue three times daily as needed Hyoscyamine Sulfate 0.125 MG 1 tablet under the tongue and allow to dissolve as needed Sublingual Three times a day for 30 days Jan, Active take 0.125 mg under the tongue three times daily hyoscyamine sublingual (LEVSIN SL) 0.125 mg Dissolve 0.125 mg under the tongue three times a day. Active take 125 ug by mouth every four hours as needed for muscle spasms hyoscyamine (Levsin) 0.125 MG/5ML elixir Take 125 mcg by mouth every 4 (four) hours if needed for bladder spasms. 0 Active Comment on above: Dissolve 0.125 mg un bang the tongue three times a day. ipratropium bromide 0.021 mg/actuat metered dose nasal spray (20 sources) Anticholinergic Start: 4 take 2 spray(s) nasal route once daily Ipratropium [place] Active 2 SPRAY INTRANASAL Daily October 26, 2023 12:00am FreeTextSi sprays in each nostril Nasally Once Daily; Note: Source Status: Taking; Refills: 3; Provider: Gladys Pastrana Start: 10-09-2021 take 2 spray(s) nasa l route once daily Ipratropium [place] 0.03 % 2 sprays in each nostril Nasally Once Daily for 30 days Oct, Active Start: 10-09-2021 take 2 spray(s) nasa l route once daily Ipratropium [place] 0.03 % 2 sprays in each nostril Nasally Once Daily for 30 days Oct, Active Start: 10-09-2021 Start: 10-09-2021 take 2 spray(s) nasa l route twice daily Ipratropium [place] 0.03 % 2 sprays in each nostril Nasally Twice a day for 30 day(s) Oct, Active ipratropium (Atr ovent) 0.03 % nasal spray Administer 2 sprays into each nostril every 12 (twelve) hours. Active Comment on above: Use 2 Sprays in the nose once daily. 24 hr isosorbide mononitrate 60 mg extended release oral tablet (20 sources) Nitrate Vasodilator Start: 4 End: 4 take 60 mg by mouth once daily Isosorbide Mononitrate Active 60 MG PO Daily 90 February 04, 2024 11:27am Start: 09-30-2018 End: 11-01-2023 take 30 mg by mouth once daily Isosorbide Mononitrate Discontinued 30 MG PO Daily September 30, 2018 1:00am November 01, 2023 6:34pm take 1 tablet by perfecto th in the morning isosorbide mononitrate 20 MG tablet Take 20 mg by mouth in the morning and 20 mg before bedtime. Active Comment on above: Take 60 mg by mouth once daily. levoFLOXacin 750 mg oral tablet (2 sources) Quinolone Antimicrobial take 1 tablet by mouth in the morning levoFLOXacin (Levaquin) 750 MG tablet Take 750 mg by mouth in the morning. 0 Active lidocaine 0.05 mg/mg medicated patch (12 sources) Antiarrhythmic, Amide Local Anesthetic Start: 12-10-19 Lidocaine 5 % 1 patch remove after 12 hours Externally Once a day for 30 days PRN December, Active Start: 12-09-2022 lisinopril 5 mg oral tablet (20 sources) Angiotensin Converting Enzyme Inhibitor take 1 tablet by mouth once daily lisinopril 5 MG tablet Take 5 mg by mouth 1 (one) time each day at the same time. 0 Active take 1 tablet by perfecto th every twelve hours Lisinopril 5 MG 1 tablet Orally Twice a day for 90 day(s) Active loratadine 10 mg oral tablet (14 sources) Start: 11-08-2023 take 1 tablet by mouth once daily loratadine (CLARITIN) 10 mg tablet Take 1 tablet by mouth once daily. 11/08/2023 Active Comment on above: Take 1 tablet by perfecto th once daily. magnesium oxide 400 mg oral tablet (20 sources) Start: 11-29-2023 End: 12-31-2023 take 1 tablet by mouth in the morning magnesium oxide (Mag-Ox) 400 MG tablet Take 400 mg by mouth in the morning. 12/31/2023 Active Start: 10-28-2023 End: 11-01-2023 take 400 mg by mouth once daily Magnesium Oxide Discontinued 400 MG PO Daily October 28, 2023 12:00am November 01, 2023 6:34pm Comment on above: Take 400 mg by mouth once daily. MULTIVIT WITH IRON-MINERALS (MULTIVITAMIN AND MINERALS ORAL) (15 sources) take 1 tablet by mouth once daily MULTIVIT WITH IRON-MINERALS (MULTIVITAMIN AND MINERALS ORAL) Take 1 tablet by mouth once daily. Active take 1 tablet by mouth once chandan y MULTIVIT WITH IRON-MINERALS (MULTIVITAMIN AND MINERALS ORAL) Take 1 tablet by mouth once daily. 0 Active Comment on above: Take 1 tablet by perfecto th once daily. potassium chloride 10 meq extended release oral capsule (20 sources) Start: 11-01-2023 End: 01-19-2024 take 10 mEq by mouth once daily Potassium Chloride Active 10 MEQ PO Daily 90 January 19, 2024 5:03pm Start: 09-30-2018 End: 10-26-2023 take 20 mEq by mouth once daily Potassium Chloride (Kl or-Con) 20 mEq Packet Discontinued 20 MEQ PO Daily September 30, 2018 1:00am October 26, 2023 4:09pm take 10 mEq by mouth twice daily POTASSIUM CHLORIDE (KLOR-CON 10 ORAL) Take 10 mEq by mouth twice daily. Active potassium chlori de CR (KLOR-CON) 10 MEQ ER tablet every 12 (twelve) hours. Active take 1 tablet by perfecto th once daily Klor-Con M10 10 MEQ TAKE 1 TABLET BY MOUTH EVERY DAY for 90 Active take 1 tablet by perfecto th every twelve hours Comment on above: Take 10 mEq by mouth twice daily. predniSONE 10 mg oral tablet (8 sources) Start: 12-23-19 predniSONE 10 MG 4 tablets daily for 3 days, 2 tablets daily for 3 days, 1 tablet daily for 7 days Orally Once a day for 13 days December, Active pregabalin 25 mg oral capsule (2 sources) Start: 07-03-20 End: 07-03-20 take 1 capsule by mouth in the morning pregabalin (Lyrica) 25 MG capsule Indications: Cervical radiculopathy Take 1 capsule (25 mg) by mouth in the morning and 1 capsule (25 mg) before bedtime. 60 capsule 3 07/03/2024 07/03/2025 Active spironolactone 25 mg oral tablet (7 sources) Aldosterone Antagonist Start: 05-16-20 take 1 tablet by mouth once daily Spironolactone Active 0 .ROUTE .COMPLEX May 16, 2024 12:38pm TAKE 1 TABLET BY MOUTH DAILY Start: 04-24-2024 End: 05-16-2024 take 25 mg by mouth once daily Spironolactone Discontinued 25 MG PO Daily April 24, 2024 12:00am May 16, 2024 12:38pm traZODone hydrochloride 50 mg oral tablet (20 sources) Serotonin Reuptake Inhibitor Start: 05-15-2024 take 1 tablet by mouth once daily at bedtime as needed Trazodone Active 0 .ROUTE .COMPLEX May 15, 2024 8:24am TAKE 1 TABLET BY MOUTH EVERY DAY AT BEDTIME NEEDED FOR 90 DAYS Start: 09-10-2023 End: 05-15-2024 take 1 tablet by mouth once daily at bedtime as needed traZODone (Desyrel) 50 MG tablet TAKE 1 TABLET BY MOUTH EVERY DAY AT BEDTIME NEEDED FOR 90 DAYS 09/10/2023 Active Comment on above: Take 50 mg by mouth daily at bedtime. Trelegy Ellipta 100-62.5-25 MCG/INH (7 sources) Start: 03-06-2020 take 1 puff(s) by inhalation once daily Trelegy Ellipta 100-62.5-25 MCG/INH 1 puff Inhalation Once a day for 90 day(s) Feb, Active trelegy ellipta 200-62.5-25 mcg/act aerosol powder breath activated (3 sources) Start: 03-06-2020 take 1 puff(s) by inhalation once daily Trelegy Ellipta 200-62.5-25 MCG/ACT 1 puff Inhalation Once a day for 90 days Feb, Active Vitamin B12 1000 MCG (1 source) take 1 tablet by mouth once daily Vitamin B12 1000 MCG 1 tablet Orally Once a day Active Vitamin C 500 MG (20 sources) Vitamin C 500 MG as directed Orally Active Vitamin E 200 UNIT (20 sources) take 1 tablet by perfecto th once daily Vitamin E 200 UNIT 1 tablet Orally Once a day Active Completed/Discontinued Medications Medication Drug Class(es) Dates Sig (Normalized) Sig (Original) Albuterol Sulfate 108 (90 Base) MCG/ACT (20 sources) take 2 puff(s) by inhalation every six hours as needed Albuterol Sulfate 108 (90 Base) MCG/ACT 2 puffs as needed Inhalation every 6 hrs for 30 day(s) Not-Taking/PRN take 2 puff(s) by in halation every six hours as needed Albuterol Sulfate 108 (90 Base) MCG/ACT 2 puffs as needed Inhalation every 6 hrs for 30 day(s) Not-Taking take 2 puff(s) by in halation every six hours as needed Albuterol Sulfate 108 (90 Base) MCG/ACT 2 puffs as needed Inhalation every 6 hrs for 30 day(s) Active ALPRAZolam 0.25 mg oral tablet (19 sources) Benzodiazepine Start: 09-30-2018 End: 10-26-2023 Alprazolam Discontinued 0.25 MG PO 2-3 TIMES PER DAY September 30, 2018 1:00am October 26, 2023 4:10pm take 1 tablet by perfecto th every eight hours as needed ALPRAZolam 0.25 mg tablet Take 0.25 mg b y mouth three times daily as needed. 0 Active Comment on above: Take 0.25 mg by mout h three times daily as needed. amitriptyline hydrochloride 75 mg oral tablet (19 sources) Tricyclic Antidepressant Start: 09-30-19 End: 07-12-20 take 75 mg by mouth once daily Amitriptyline Discontinued 75 MG PO Daily September 30, 2018 1:00am July 12, 2019 9:30am take 1 tablet by perfecto th once daily at bedtime amitriptyline 50 mg tablet Take 50 mg by mouth daily at bedtime. 0 Active Comment on above: Take 50 mg by mouth daily at bedtime. amLODIPine 5 mg oral tablet (20 sources) Dihydropyridine Calcium Channel Chela Start: 06-15-20 End: 01-19-20 take 1 tablet by mouth once daily Amlodipine Discontinued 5 MG PO Daily January 19, 2024 5:00pm January 19, 2024 5:06pm 1 tablet Orally Once a day Comment on above: Take 5 mg by mouth o nce daily. ascorbic acid 500 mg oral capsule (20 sources) Vitamin C Start: 10-26-19 End: 11-01-19 Ascorbic Acid (Vitamin C) Discontinued CAP PO As Directed October 26, 2023 12:00am November 01, 2023 6:33pm FreeTextSig: as directed Orally; Note: Source Status: Taking; Provider: OTC take 1 tablet by mouth once chandan y ascorbic acid, vitamin C, (VITAMIN C) 500 mg tablet Take 500 mg by mouth once daily. Active Vitamin C 500 MG as directed Orally Active Comment on above: Take 500 mg by mouth once daily. atropine sulfate 0.025 mg / diphenoxylate hydrochloride 2.5 mg oral tablet (5 sources) Anticholinergic, Cholinergic Muscarinic Antagonist, Antidiarrheal Start: 04-26-2020 take 1 tablet by mouth every eight hours Start: 10-28-2015 take 2 tablets by mo ut once as needed diphenoxylate-atropine (LOMOTIL) 2.5-0.025 mg per tablet Take 2 tablets by mouth as needed. 0 10/28/2015 Active [facility] as needed diphenoxylate-atropine (Lomotil) 2.5-0.025 MG tablet Take 1 tablet by mouth 4 (four) times a day as needed. 0 Active Comment on above: Take 2 tablets by mo [facility] as needed. 120 actuat budesonide 0.16 mg/actuat / formoterol fumarate 0.0045 mg/actuat metered dose inhaler (19 sources) Corticosteroid, beta2-Adrenergic Agonist Start: 9 End: 9 take 1 puff(s) by inhalation twice daily Budesonide-Formoterol (Symbicort) 160-4.5 mcg/actuation Hfa Aerosol Inhaler Discontinued 2 PUFF INHALATION Twice daily September 30, 2018 1:00am July 12, 2019 9:30am take 2 puff(s) by in halation twice daily budesonide-formoterol (SYMBICORT) 160-4. 5 mcg/actuation inhaler Inhale 2 Puffs as instructed twice daily. 0 Active Comment on above: Inhale 2 Puffs as in structed twice daily. cefdinir 300 mg oral capsule (8 sources) Cephalosporin Antibacterial Start: End: take 300 mg by mouth every twelve hours Cefdinir Discontinued 300 MG PO Every 12 hours November 18, 2023 12:00am November 29, 2023 2:06pm cetirizine hydrochloride 10 mg oral tablet (14 sources) Histamine-1 Receptor Antagonist Start: End: take 1 tablet by mouth once daily Cetirizine Discontinued 10 MG PO Daily October 26, 2023 12:00am November 01, 2023 6:33pm FreeTextSi tablet Orally Once a day; Note: Source Status: Taking; Provider: OTC cholecalciferol 0.025 mg oral capsule (20 sources) Vitamin D Start: End: take 1 capsule by mouth once daily Cholecalciferol (Vitamin D3) (Vitamin D3) 1,000 unit Capsule Discontinued 1000 UNIT PO Daily September 30, 2018 1:00am November 01, 2023 6:33pm Comment on above: Take 1,000 Units by mouth once daily. colestipol hydrochloride 1000 mg oral tablet (20 sources) Bile Acid Sequestrant Start: End: take 1 g by mouth once daily Colestipol Discontinued 1 GM PO Daily March 28, 2024 1:16pm May 01, 2024 2:17pm Start: 10-26-2023 End: 03-28-2024 take 2 tablets by mouth once daily Colestipol Discontinued 1 GM PO Daily December 22, 2023 8:44am March 28, 2024 1:18pm FreeTextSi tablets Orally Once a day; Note: Source Status: Taking; Refills: 11; Qty: 60 Tablet; Provider: Magdiel Irene Start: 02-14-2020 take 2 tablets by mo uth every twenty-four hours Colestipol HCl 1 GM 2 tablets Orally Once a day for 30 day(s) Feb, Active Start: 02-14-2020 take 2 tablets by mo uth every twenty-four hours Colestipol HCl 1 GM 2 tablets Orally Once a day for 30 day(s) Feb, Active Start: 02-14-2020 take 2 tablets by mo uth every twenty-four hours Start: 02-14-2020 take 1.5 tablets by mouth every twenty-four hours Colestipol HCl 1 GM 1.5 tablets Orally Once a day for 30 day(s) Feb, Active Comment on above: Take 1 g by mouth on ce daily. cranberry preparation 500 mg oral capsule (10 sources) Non-Standardized Food Allergenic Extract, Non-Standardized Plant Allergenic Extract Cranberry 500 MG as directed Orally Not-Taking Cranberry 500 MG as directed Orally Active Cyclosporine (Restasis) 0.05 % Dropperette (11 sources) Start: 09-30-2018 End: 11-01-2023 take 1 drop(s) into the eye(s) every twelve hours Cyclosporine (Restasis) 0.05 % Dropperette Discontinued 1 DROPS EYE-BOTH Q12H September 30, 2018 1:00am November 01, 2023 6:33pm cyproheptadine hydrochloride 4 mg oral tablet (18 sources) Start: 09-30-2018 End: 10-26-2023 take 4 mg by mouth once daily Cyproheptadine Discontinued 4 MG PO Daily September 30, 2018 1:00am October 26, 2023 4:10pm docusate sodium 100 mg oral capsule (1 source) Start: 01-13-2016 take 1 capsule by mouth twice daily docusate sodium (COLACE) 100 mg capsule Take 1 capsule by mouth twice daily. 60 capsule 0 01/13/2016 Active Comment on above: Take 1 capsule by [facility] twice daily. doxycycline monohydrate 100 mg oral capsule (18 sources) Tetracycline-class Drug Start: 09-30-2018 End: 10-26-2023 take 100 mg by mouth twice daily Doxycycline Monohydrate Discontinued 100 MG PO Twice daily September 30, 2018 1:00am October 26, 2023 4:10pm fluticasone / salmeterol (1 source) Corticosteroid, beta2-Adrenergic Agonist Start: 12-18-2015 take 1 puff(s) by mouth twice daily fluticasone-salmete rol (ADVAIR DISKUS) 500-50 mcg/dose dsdv Inhale 1 Puff as instructed twice daily. rinse and gargle mouth with water after each use 0 12/18/2015 Active Comment on above: Inhale 1 Puff as ins tructed twice daily. rinse and gargle mouth with water after each use ibuprofen 800 mg oral tablet (20 sources) Nonsteroidal Anti-inflammatory Drug Start: 10-26-2023 End: 11-01-2023 take 1 tablet by mouth every eight hours at mealtime as needed Ibuprofen Discontinued 800 MG PO Every 8 hours October 26, 2023 12:00am November 01, 2023 6:33pm FreeTextSi tablet with food or milk as needed Orally every 8 hrs; Note: Source Status: Refill; Refills: 0; Provider: Gladys Pastrana ibuprofen 800 MG tablet Take 400 mg by mouth every 6 (six) hours if needed for mild pain. 0 Active take 1 tablet by perfecto every eight hours at mealtime as needed Ibuprofen 800 MG 1 tablet with food or milk as needed Orally every 8 hrs for 90 days Active take 1 tablet by perfecto th three times daily at mealtime as needed Ibuprofen 800 MG 1 tablet with food or milk as needed Orally tid prn for 30 day(s) Active ketotifen 0.25 mg/ml ophthalmic solution (18 sources) Histamine-1 Receptor Inhibitor Start: 09-30-2018 End: 10-26-2023 take 0.025 drop(s) into the eye(s) twice daily Ketotifen Fumarate (Alaway) 0.025 % (0.035 %) Drops Discontinued 1 DROPS EYE-LEFT Twice daily September 30, 2018 1:00am October 26, 2023 4:09pm Leg Cramp Relief - (10 sources) Leg Cramp Relief - as directed Orally OTC Not-Taking Leg Cramp Relief - as directed Orally OTC Active loperamide hydrochloride 2 mg oral capsule (20 sources) Opioid Agonist Start: 05-13-2022 End: 04-26-2024 take 1 capsule by mouth once daily as needed Loperamide Discontinued 2 MG PO Daily October 26, 2023 12:00am December 22, 2023 8:48am FreeTextSi capsule as needed Orally ONCE A DAY; Note: Source Status: Taking; Refills: 6; Qty: 30 Capsule; Provider: Magdiel Peterson take 1 capsule by mo [facility] four times daily as needed for diarrhea loperamide (Imodium) 2 MG capsule Take 2 mg by mouth 4 (four) times a day as needed for diarrhea. Active Comment on above: Take 2 mg by mouth o nce daily. losartan potassium 100 mg oral tablet (20 sources) Angiotensin 2 Receptor Chela Start: End: take 1 tablet by mouth once daily Losartan Discontinued 100 MG PO Daily October 26, 2023 12:00am March 20, 2024 12:09pm FreeTextSi tablet Orally Once a day; Note: Source Status: Taking; Refills: 1; Qty: 90 Tablet; Provider: Gladys Pastrana Start: 02-26-2022 take 1 tablet by perfecto th every twenty-four hours Losartan Potassium 50 MG 1 tablet Orally Once a day for 90 day(s) Feb, Active Comment on above: Take 100 mg by mouth once daily. montelukast 10 mg oral tablet (18 sources) Leukotriene Receptor Antagonist Start: 9 End: 4 take 10 mg by mouth once daily in the evening Montelukast Discontinued 10 MG PO Every evening September 30, 2018 1:00am October 26, 2023 4:09pm Multivitamin preparation (20 sources) Start: 4 End: 4 take 1 tablet by mouth once daily Multivitamin Discontinued 1 TAB PO Daily October 26, 2023 12:00am November 01, 2023 6:34pm Start: 10-26-2023 take 1 tablet by perfecto th once daily Multivitamin Active 1 TAB PO Daily October 26, 2023 12:00am Multivitamin - 1 Tablet Orally Active Multivitamin - a s directed Orally Active naproxen sodium 220 mg oral capsule (1 source) Nonsteroidal Anti-inflammatory Drug take 1 capsule by mouth every eight hours naproxen sodium 220 mg cap Take 1 capsule by mouth every 8 hours. 0 Active Comment on above: Take 1 capsule by mo uth every 8 hours. Nitro Sublingual 0.4 0.4mg (10 sources) Start: 08-14-19 20 Nitro Sublingual 0.4 0.4mg 1 Sublingual Every 5min x3 for 30 days Aug, Not-Taking Start: 08-14-2019 Nitro Sublingu al 0.4 0.4mg 1 Sublingual Every 5min x3 for 30 days Aug, Active Start: 08-14-2019 omeprazole 40 mg delayed release oral capsule (19 sources) Proton Pump Inhibitor Start: 09-30-2018 End: 10-26-2023 take 40 mg by mouth once daily Omeprazole Discontinued 40 MG PO Daily September 30, 2018 1:00am October 26, 2023 4:09pm take 1 capsule by mouth once luis enrique ly omeprazole 20 mg capsule Take 20 mg by mouth once daily. 0 Active Comment on above: Take 20 mg by mouth once daily. pantoprazole 40 mg delayed release oral tablet (20 sources) Proton Pump Inhibitor Start: 0 End: 4 take 1 tablet by mouth once daily Pantoprazole Discontinued 40 MG PO Daily 90 90 October 11, 2023 12:42pm March 20, 2024 12:09pm 1 tablet Orally Once a day Provider: Gladys Pastrana Comment on above: Take 40 mg by mouth once daily. Bjmalvzglcc-Achavlfl-N romfenac 1-0.5-0.09 % (11 sources) Prednisolon-Moxi flox- Bromfenac 1-0.5-0.09 % as directed Ophthalmic Not-Taking Prednisolon-Moxi flox-Bromfenac 1-0.5-0.09 % as directed Ophthalmic Active tiotropium 0.018 mg inhalation powder (2 sources) Anticholinergic take 1 capsule by inhalation once daily tiotropium 18 mcg inhalation capsule Inhale 18 mcg as instructed once daily. 0 Active Comment on above: Inhale 18 mcg as ins tructed once daily. tolterodine tartrate 2 mg oral tablet (18 sources) Cholinergic Muscarinic Antagonist take 1 capsule by mouth every twenty-four hours Detrol LA 2 MG 1 capsule Orally Once a day Not-Taking take 1 tablet by perfecto every twelve hours Tolterodine Tartrate 2 MG 1 tablet Orall y Twice a day Not-Taking Umeclidinium (18 sources) Anticholinergic Start: 09-30-2018 End: 07-12-2019 take 62.5 ug by inhalation once daily Umeclidinium (Incruse Ellipta) 62.5 mcg/actuation Blister With Device Discontinued 1 INH INHALATION Daily September 30, 2018 12:00am July 12, 2019 8:31am Start: 09-30-2018 End: 07-12-2019 take 62.5 ug by inhalation once daily Umeclidinium (Incruse Ellipta) 62.5 mcg/actuation Blister With Device Discontinued 1 INH INHALATION Daily September 30, 2018 1:00am July 12, 2019 9:31am 24 hr verapamil hydrochloride 180 mg extended release oral capsule (19 sources) Calcium Channel Chela Start: 12-04-2013 End: 10-26-2023 take 180 mg by mouth once daily Verapamil Discontinued 180 MG PO Daily September 30, 2018 1:00am October 26, 2023 4:09pm Comment on above: Take 1 capsule by mo [facility] once daily. vitamin b12 1 mg oral capsule (20 sources) Vitamin B12 Start: 10-26-2023 End: 11-01-2023 take 1000 ug by mouth once daily Cyanocobalamin (Vitamin B-12) Discontinued 1000 MCG PO Daily October 26, 2023 12:00am November 01, 2023 6:33pm take 1 tablet by mouth once chandan y cyanocobalamin (VITAMIN B-12) 1,000 mcg tab Take 1,000 mcg by mouth once daily. Active take 1 tablet by perfecto every twenty-four hours Vitamin B12 1000 MCG 1 tablet Orally Onc e a day Active Comment on above: Take 1,000 mcg by mo [facility] once daily. Problems Active Problems Problem Classification Problem Date Documented Da te Episodic/Chronic Acquired foot deformities (10 sources) Hallux valgus; Translations: [Hallux valgus (acquired), left foot] Onset: 8 05-27-2023 Chronic Anxiety disorders (20 sources) Anxiety; Translations: [Anxiety disorder, unspecified] Onset: 4 07-12-2019 Chronic Cardiac dysrhythmias (20 sources) Atrial fibrillation; Translations: [Unspecified atrial fibrillation] Onset: 3 Chronic Cardiac dysrhythmias (20 sources) Bradycardia, unspecified; Translations: [Other specified cardiac dysrhythmias] Onset: 4 10-27-2023 Episodic Chronic obstructive pulmonary disease and bronchiectasis (20 sources) Chronic obstructive lung disease; Translations: [Chronic obstructive pulmonary disease, unspecified] Onset: 3 Resolved: 2 Chronic Conduction disorders (20 sources) Left bundle-branch block, unspecified; Translations: [Left bundle branch block] Onset: 0 Chronic Congestive heart failure; nonhypertensive (20 sources) Chronic diastolic (congestive) heart failure; Translations: [Heart failure] Onset: 3 Chronic Coronary atherosclerosis and other heart disease (20 sources) Atherosclerotic heart disease of [place] coronary artery without angina pectoris; Translations: [Coronary arteriosclerosis] Onset: 3 Chronic E Codes: Fall (1 source) Fall on same level from slipping, tripping and stumbling without subsequent striking against object, initial encounter; Translations: [FALL SAME LVL SLIP NO STRK OBJ INIT] Onset: 3 Episodic Esophageal disorders (20 sources) Gastroesophageal reflux disease; Translations: [Gastro-esophageal reflux disease without esophagitis] Onset: 2 Resolved: 2 Chronic Essential hypertension (20 sources) Essential hypertension; Translations: [Essential (primary) hypertension] Onset: 4 Resolved: 2 Chronic Genitourinary symptoms and ill-defined conditions (20 sources) Incontinence; Translations: [Mixed incontinence] Onset: 6 12-03-2015 Chronic Malaise and fatigue (20 sources) Fatigue; Translations: [Chronic fatigue, unspecified] Onset: 2 Chronic Miscellaneous mental health disorders (20 sources) Somatization disorder; Translations: [Somatization disorder] Onset: 2 Resolved: 2 Chronic Mood disorders (1 source) Mood disorders; Translations: [DEPRESSION UNSPECIFIED] Onset: 3 Nausea and vomiting (20 sources) Nausea; Translations: [Nausea] Episodic Osteoarthritis (20 sources) Osteoarthritis of right knee joint; Translations: [Unilateral primary osteoarthritis, right knee] Onset: 2 Resolved: 2 Chronic Other aftercare (1 source) residential (current) use of aspirin; Translations: [PISTON MAKER CURRENT USE OF ASPIRIN] Onset: 3 Episodic Other aftercare (1 source) Other termite exterminator (current) drug therapy; Translations: [OTH DETENTION CURRENT DRUG THERAPY] Onset: 3 Episodic Other aftercare (3 sources) Encounter for follow-up examination after completed treatment for conditions other than malignant neoplasm; Translations: [Other follow-up examination] 11-29-2023 Episodic Other aftercare (3 sources) residential (current) use of inhaled steroids; Translations: [Long-term (current) use of steroids] 01-10-2024 Episodic Other and unspecified benign neoplasm (1 source) Benign lipomatous neoplasm of kidney; Translations: [Benign lipomatous neoplasm of kidney] Onset: 4 Episodic Other bone disease and musculoskeletal deformities (20 sources) Idiopathic scoliosis; Translations: [Other idiopathic scoliosis, lumbar region] Chronic Other bone disease and musculoskeletal deformities (9 sources) Other idiopathic scoliosis, lumbar region Onset: 2 Resolved: 2 Chronic Other connective tissue disease (20 sources) Cramp; Translations: [Cramp and spasm] Episodic Other connective tissue disease (3 sources) Spasm; Translations: [Other muscle spasm] 09-10-2023 Episodic Other eye disorders (1 source) Conjunctival hemorrhage, right eye Episodic Other gastrointestinal disorders (20 sources) Irritable bowel syndrome; Translations: [Irritable bowel syndrome without diarrhea] Chronic Other gastrointestinal disorders (20 sources) Irritable bowel syndrome with diarrhea; Translations: [Irritable bowel syndrome with diarrhea] Onset: 4 03-28-2024 Chronic Other gastrointestinal disorders (11 sources) Irritable bowel syndrome with diarrhea; Translations: [Irritable bowel syndrome] Onset: 1 Resolved: 2 Chronic Other gastrointestinal disorders (3 sources) Irritable bowel syndrome without diarrhea; Translations: [Irritable bowel syndrome] Onset: 3 05-01-2024 Chronic Other gastrointestinal disorders (8 sources) Bile acid malabsorption syndrome; 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] Onset: 4 03-28-2024 Chronic Other gastrointestinal disorders (4 sources) Other intestinal malabsorption; Translations: [Other specified intestinal malabsorption] 03-28-2024 Chronic Other gastrointestinal disorders (20 sources) Diarrhea; Translations: [Diarrhea, unspecified] Episodic Other gastrointestinal disorders (20 sources) Dysphagia; Translations: [Dysphagia, unspecified] Episodic Other gastrointestinal disorders (3 sources) Diarrhea, unspecified Onset: 1 Resolved: 1 Episodic Other lower respiratory disease (11 sources) Shortness of breath; Translations: [Shortness of breath] Onset: 2 Episodic Other lower respiratory disease (1 source) Pleurodynia Episodic Other lower respiratory disease (10 sources) Other forms of dyspnea; Translations: [Other respiratory abnormalities] Onset: 3 Episodic Other lower respiratory disease (3 sources) Solitary pulmonary nodule; Translations: [Solitary pulmonary nodule] 01-10-2024 Episodic Other nervous system disorders (13 sources) Syringomyelia; 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] Chronic Other nervous system disorders (2 sources) Syringomyelia and syringobulbia Chronic Other nervous system disorders (5 sources) Chronic pain; Translations: [Other chronic pain] Onset: 3 05-27-2023 Chronic Other nervous system disorders (5 sources) Spinal cord disease; Translations: [Disease of spinal cord, unspecified] Onset: 3 05-27-2023 Chronic Other nervous system disorders (7 sources) Post-traumatic syrinx; 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] Onset: 3 05-27-2023 Chronic Other non-traumatic joint disorders (13 sources) Polyarthropathy; Translations: [Polyarthritis, unspecified] Chronic Other non-traumatic joint disorders (2 sources) Polyarthritis, unspecified Chronic Other non-traumatic joint disorders (3 sources) Pain in left knee; Translations: [PAIN IN LEFT KNEE] Onset: 3 Episodic Other nutritional; endocrine; and metabolic disorders (1 source) Obesity, unspecified; Translations: [OBESITY UNSPECIFIED] Onset: 3 Chronic Other nutritional; endocrine; and metabolic disorders (1 source) Body mass index (BMI) 32.0-32.9, adult; Translations: [BODY MASS INDEX BMI 32.0-32.9 ADULT] Onset: 3 Chronic Other nutritional; endocrine; and metabolic disorders (14 sources) Hypomagnesemia; Translations: [Disorders of magnesium metabolism] Onset: 4 11-01-2023 Chronic Other nutritional; endocrine; and metabolic disorders (12 sources) Hypomagnesemia; Translations: [Hypomagnesemia] Onset: 4 11-02-2023 Chronic Other screening for suspected conditions (not mental disorders or infectious disease) (20 sources) Standard chest X-ray abnormal; Translations: [Abnormal findings on diagnostic imaging of other specified body structures] Onset: 2 Resolved: 2 Chronic Other screening for suspected conditions (not mental disorders or infectious disease) (4 sources) Encounter for screening mammogram for malignant neoplasm of breast; Translations: [Encounter for screening for cardiovascular disorders] Onset: 2 Resolved: 2 Episodic Other upper respiratory disease (20 sources) Rhinitis; Translations: [Chronic rhinitis] Chronic Other upper respiratory disease (1 source) Chronic rhinitis Onset: 2 Resolved: 2 Chronic Other upper respiratory disease (18 sources) Chronic rhinitis; Translations: [Chronic rhinitis] Chronic Peripheral and visceral atherosclerosis (1 source) Unspecified atherosclerosis; Translations: [UNSPECIFIED ATHEROSCLEROSIS] Onset: 2 Chronic Prolapse of female genital organs (20 sources) Midline cystocele; Translations: [Cystocele, midline] Onset: 6 12-03-2015 Chronic Pulmonary heart disease (20 sources) Pulmonary hypertension, unspecified; Translations: [Mild pulmonary hypertension] Onset: 4 10-27-2023 Chronic Pulmonary heart disease (1 source) Personal history of pulmonary embolism; Translations: [PERSONAL HISTORY PULMONARY EMBOLISM] Onset: 3 Episodic Residual codes; unclassified (20 sources) Obstructive sleep apnea syndrome; Translations: [Obstructive sleep apnea (adult) (pediatric)] Onset: 3 05-27-2023 Chronic Residual codes; unclassified (10 sources) Obstructive sleep apnea (adult) (pediatric); Translations: [Obstructive sleep apnea (adult)(pediatric)] Onset: 1 Resolved: 2 Chronic Residual codes; unclassified (1 source) Sleep apnea, unspecified; Translations: [SLEEP APNEA UNSPECIFIED] Onset: 3 Chronic Residual codes; unclassified (1 source) Acquired absence of other specified parts of digestive tract; Translations: [ACQ ABSENCE OTH PART DIGESTV TRACT] Onset: 3 Episodic Residual codes; unclassified (1 source) Acquired absence of both cervix and uterus; Translations: [ACQUIRED ABSENCE BOTH CERVIX AND UTERUS] Onset: 3 Episodic Residual codes; unclassified (1 source) Acquired absence of ovaries, bilateral; Translations: [ACQUIRED ABSENCE OVARIES BILATERAL] Onset: 3 Episodic Spondylosis; intervertebral disc disorders; other back problems (10 sources) Sacrococcygeal disorders, not elsewhere classified; Translations: [Dorsalgia, unspecified] Onset: 2 Resolved: 2 Episodic Sprains and strains (1 source) Sprain of unspecified site of left knee, initial encounter; Translations: [SPRAIN UNS SITE LT KNEE INITIAL] Onset: 3 Episodic Superficial injury; contusion (2 sources) Contusion of left knee, initial encounter; Translations: [Contusion of right hip, initial encounter] Onset: 3 Episodic Thyroid disorders (20 sources) Goiter; Translations: [Nontoxic goiter, unspecified] Chronic Unclassified (1 source) Conjunctival hemorrhage, right eye; Translations: [Conjunctival hemorrhage, right eye] Onset: 3 Past or Other Problems Problem Classification Problem Date Documented Da te Episodic/Chronic Abdominal hernia (9 sources) Hernia of anterior abdominal wall; Translations: [Ventral hernia without obstruction or gangrene] Onset: 12-04-2013 Resolved: 06-11-2014 06-11-2014 Episodic Abdominal pain (20 sources) Abdominal pain; Translations: [Unspecified abdominal pain] Onset: 03-29-2024 Episodic Acquired foot deformities (5 sources) Bunion; Translations: [Bunion of left foot] Onset: 10-29-2017 05-27-2023 Episodic Acute and unspecified renal failure (20 sources) Acute injury of kidney; Translations: [Acute kidney failure, unspecified] Onset: 12-19-2015 12-19-2015 Episodic Acute bronchitis (5 sources) Acute bronchitis; Translations: [Acute bronchitis, unspecified] Onset: 12-28-2022 05-27-2023 Episodic Genitourinary symptoms and ill-defined conditions (6 sources) Urgent desire to urinate; Translations: [Urgency of urination] Onset: 06-21-2019 05-27-2023 Episodic Malaise and fatigue (9 sources) Malaise; Translations: [Other malaise] Onset: 01-12-2013 07-12-2019 Episodic Nonspecific chest pain (16 sources) Other chest pain; Translations: [Chest pain, unspecified] Onset: 12-28-2022 Episodic Other aftercare (4 sources) Encounter for therapeutic drug level monitoring; Translations: [ENC THERAPEUTC DRUG LEVL MONITORING] Onset: 07-11-2022 Episodic Other aftercare (10 sources) Long-term current use of inhaled 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; 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] Onset: 03-29-2024 01-10-2024 Episodic Other and unspecified benign neoplasm (5 sources) Angiomyolipoma of kidney; Translations: [Benign lipomatous neoplasm of kidney] Onset: 06-02-2017 05-27-2023 Episodic Other circulatory disease (2 sources) Other specified symptoms and signs involving the circulatory and respiratory systems; Translations: [Other specified symptoms and signs involving the circulatory and respiratory systems] Onset: 07-05-2023 Episodic Other connective tissue disease (5 sources) Plantar fascial fibromatosis; Translations: [Plantar fascial fibromatosis] Onset: 08-06-2004 05-27-2023 Episodic Other connective tissue disease (5 sources) Pain in right hand; Translations: [Pain in right hand] Onset: 05-27-2023 05-27-2023 Episodic Other connective tissue disease (10 sources) Cramp and spasm; Translations: [Cramp of limb] Onset: 10-27-2023 10-27-2023 Episodic Other lower respiratory disease (5 sources) Dyspnea; Translations: [Dyspnea, unspecified] Onset: 12-28-2022 05-27-2023 Episodic Other lower respiratory disease (10 sources) Solitary nodule of lung; Translations: [Solitary pulmonary nodule] Onset: 03-29-2024 01-10-2024 Episodic Other lower respiratory disease (1 source) Dyspnea, unspecified; Translations: [Dyspnea, unspecified] Onset: 10-27-2023 Episodic Other non-traumatic joint disorders (5 sources) Pain in right knee; Translations: [Pain in joint, lower leg] Onset: 05-27-2023 05-27-2023 Episodic Other non-traumatic joint disorders (5 sources) Pain of right wrist; Translations: [Pain in right wrist] Onset: 05-27-2023 05-27-2023 Episodic Other upper respiratory infections (6 sources) Acute frontal sinusitis, unspecified; Translations: [Upper respiratory infection] Onset: 12-28-2022 Episodic Phlebitis; thrombophlebitis and thromboembolism (5 sources) Thromboembolism of vein; Translations: [Acute embolism and thrombosis of unspecified vein] Onset: 01-12-2013 05-27-2023 Episodic Residual codes; unclassified (20 sources) History of hernia repair; Translations: [Other specified postprocedural states] Onset: 06-11-2014 06-11-2014 Episodic Residual codes; unclassified (7 sources) Chill; Translations: [Chills (without fever)] Onset: 09-06-2023 07-12-2019 Episodic Screening and history of mental health and substance abuse codes (14 sources) Personal history of nicotine dependence; Translations: [Tobacco use and exposure - finding] Onset: 10-05-2022 01-10-2024 Episodic Urinary tract infections (6 sources) Urinary tract infectious disease; Translations: [Urinary tract infection, site not specified] Onset: 06-02-2017 05-27-2023 Episodic Results Test Name Value Interpretation Reference Range Facility [facility] 06-27-2024 CNPN Telephone (CARDMN) -- KIMBERLY EVERETT ([id number]) 1950 F Date Time Provider Department 06/27/24 GARLAND LOCKETT During your visit today, we recorded the following information about you: Ana Ortiz 06/27/2024 1:35 PM Signed June 27, 2024 Patient Contact No. [phone] Patient last seen: Visit date not found Patient has enough Eliquis for three days and would like a refill called in ([place], [place]). She also wants to know if she should continue taking aspirin with the Eliquis, as well as does she need to schedule a follow-up visit (has not been seen in the office since her device was placed in October). Physician: Garland Lockett MD, Kimberly, RN 06/27/2024 3:40 PM Signed Relayed to patient. Susan SERVIN Allergies As of Date: 06/27/2024 Noted Allergy Reaction AMOXICILLIN 10/16/2013 2 - Rash Comments: If already mixed with a mediction I react from the mixture Pt. states AUGMENTIN (AMOXICILLIN-POT CLAVUL*11/03/2023 2 - Rash AZITHROMYCIN 10/16/2013 4 - Hives BACITRACIN 11/03/2023 2 - Rash CHLORHEXIDINE 11/03/2023 2 - Rash CLINDAMYCIN 10/16/2013 4 - Hives FLAGYL (METRONIDAZOLE HCL) 10/16/2013 2 - Rash 9 - Itching MOBIC (MELOXICAM) 10/16/2013 2 - Rash 9 - Itching MONTELUKAST 11/03/2023 2 - Rash NEOSPORIN ([id number]* 2 - Rash SULFA (SULFONAMIDE ANTIBIOTICS) 10/16/2013 2 - Rash 4 - Hives Date Reviewed: 11/04/2023 Reviewed by: Abrahan Stern RN - Fully Assessed Reason for Visit: Patient Update [1234] Prescriptions as of 06/27/2024 - apixaban (ELIQUIS) 5 mg tab(s) Take 1 tablet by mouth two times a day. - loratadine (CLARITIN) 10 mg tablet Take 1 tablet by mouth once daily. - acetaminophen (TYLENOL) 500 mg tablet Take 2 tablets by mouth every 6 hours as needed for pain. - aspirin, enteric coated (ASPIRIN, ENTERIC COATED) 81 mg EC tablet Take 81 mg by mouth once daily. - cyanocobalamin (VITAMIN B-12) 1,000 mcg tab Take 1,000 mcg by mouth once daily. - calcium carbonate (CALCIUM 600) 600 mg calcium (1,500 mg) tab Take 600 mg by mouth once daily. - amLODIPine (NORVASC) 5 mg tablet Take 5 mg by mouth once daily. - losartan (COZAAR) 100 mg tablet Take 100 mg by mouth once daily. - isosorbide mononitrate ER (IMDUR) 60 mg 24 hr tablet Take 60 mg by mouth once daily. - ugtjteqgwza-jlvcrsnjm-nfwo nter (TRELEGY ELLIPTA) 200-62.5-25 mcg inhalation powder Inhale 1 Puff as instructed once daily. - traZODone (DESYREL) 50 mg tablet Take 50 mg by mouth daily at bedtime. - loperamide (ANTI-DIARRHEAL) 2 mg cap(s) Take 2 mg by mouth once daily. - hyoscyamine sublingual (LEVSIN SL) 0.125 mg Dissolve 0.125 mg under the tongue three times a day. - colestipol (COLESTID) 1 gram tablet Take 1 g by mouth once daily. - Ipratropium [place] (ATROVENT) 21 mcg (0.03 %) nasal spray Use 2 Sprays in the nose once daily. - pantoprazole DR (PROTONIX) 40 mg tablet Take 40 mg by mouth once daily. - magnesium oxide (MAG-OX) 400 mg (241.3 mg magnesium) tablet Take 400 mg by mouth once daily. - empagliflozin (JARDIANCE) 10 mg tablet Take 10 mg by mouth daily with breakfast. - ALBUTEROL SULFATE (PROAIR HFA INHALATION) Inhale as instructed every 4 hours as needed. - MULTIVIT WITH IRON-MINERALS (MULTIVITAMIN AND MINERALS ORAL) Take 1 tablet by mouth once daily. - Biotin 10,000 mcg cap Take 10,000 mcg by mouth once daily. - ascorbic acid, vitamin C, (VITAMIN C) 500 mg tablet Take 500 mg by mouth once daily. - cycloSPORINE (RESTASIS) 0.05 % ophthalmic emulsion Use 1 Drop in both eyes twice daily. - CALCIUM CARBONATE (TUMS ORAL) Take 2 tablets by mouth as needed (indigestion). - baclofen 5 mg tablet Take 10 mg by mouth three times a day. Takes 15 mg AM, 10 mg in afternoon and 15 mg PM - POTASSIUM CHLORIDE (KLOR-CON 10 ORAL) Take 10 mEq by mouth twice daily. - furosemide (LASIX) 40 mg tablet Take 40 mg by mouth once daily. - Cholecalciferol, Vitamin D3, (VITAMIN D) 1,000 unit cap Take 1,000 Units by mouth once daily. 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 Normal [facility] MM screening mammo BI w/CADo n 05-22-2024 MM screening mammo BI w/CAD [facility] [address] [place] [address] [place], [place] [id number] Mammography Report Signed Patient: Kimberly Everett MR#: [id number] 529 : 1950 Acct:[id number] Age/Sex: 73 / F ADM Date: 05/22/24 Loc: ID Room: Type: [facility] Attending Dr: Madeline Duffy MEDICARE CONTACT SPECIALIST Copies to: Lisa Graham, DO Madeline Duffy, AWILDA Ordering Provider: Madeline Duffy APRN Date of Service: 05/22/24 MM/MM screening mammo BI w/CAD: Z12.31 - Encounter for screening mammogram for malignant ... CLINICAL DATA: Screening for malignancy. BILATERAL SCREENING MAMMOGRAMS - FULL FIELD DIGITAL WITH TOMOSYNTHESIS AND CAD Tomosynthesis craniocaudal and mediolateral oblique views of both breasts were obtained using low- dose digital technique. Comparison is made to prior studies from June 06, 2019 through May 14, 2023. This examination was reviewed with the aid of CAD. There are scattered fibroglandular densities. Benign and vascular calcifications are present. Postoperative scarring is again seen bilaterally. There are no developing masses, typically malignant calcifications or architectural distortion. There has been no significant interval change. MM/MM screening mammo BI w/CAD IMPRESSION: NO MAMMOGRAPHIC EVIDENCE OF MALIGNANCY. ROUTINE FOLLOW-UP IS RECOMMENDED IN ONE YEAR. RESULT CODE: 2 Benign Findings(s) DENSITY CODE: 2 (approximately 25-50% glandular) FOLLOW UP: 1YR The false-negative rate of mammography is approximately 10-percent. Management of a palpable abnormality must be based on clinical grounds. Patient was entered into a reminder system with a target due date for the next mammogram. Impression dictated by: Aylin Frye M.D.05/22/2024 5:57 PM Dictation Location: [facility] Transcribed By: NAY 05/22/241756 Dictated By: Aylin Frye MD 05/22/241753 Signed By: 05/22/241756 Normal [facility] HbA1c HPLC (Bld) [Mass fract ion]on 04-24-2024 HbA1c (Bld) [Mass fraction] 5.5 % [facility] XR chest 2V*on 04-24-2024 XR chest 2V* [place] [address] XRay Report Signed Patient: Kimberly Everett MR#: [id number] 529 : 1950 Acct:[id number] Age/Sex: 73 / F ADM Date: 04/24/24 Loc: [facility] Room: Type: [facility] Attending Dr: Madeline Duffy MEDICARE CONTACT SPECIALIST Copies to: Madeline Duffy APRN Ordering Provider: Madeline Duffy APRN Date of Service: 04/24/24 XR/XR chest 2V*: I50.32 - Chronic diastolic (congestive) heart failure Plain film chest 2 view HISTORY: Shortness of breath COMPARISON: 11/01/2023 FINDINGS: SUPPORT DEVICES: None POSTSURGICAL CHANGES: Cardiac device intact HEART: Within normal limits PULMONARY YAAKOV: Within normal limits MEDIASTINUM: Unremarkable LUNGS AND PLEURA: No acute lung process, pleural effusion or pneumothorax identified. BONY STRUCTURES: Intact ADDITIONAL FINDINGS None XR/XR chest 2V* IMPRESSION: No acute process. Impression dictated by: Osman Wall M.D.04/24/2024 4:32 PM Dictation Location: [place] [address] Transcribed By: NAY 04/24/24 163 Dictated By: Osman Wall DO 04/24/24 163 Signed By: 04/24/241631 Normal [facility] [place] 03-10-2024 SARY Telephone (CARCWY) -- KARLOSKIMBERLY Rivers ([id number]) 1950 F Date Time Provider Department 03/10/24 AUDI TAPIA During your visit today, we recorded the following information about you: Tracy Ibanez 03/10/2024 4:33 PM Signed 2ND ATTEMPT PER CX/GAGAN LIST 05/08/2024 WILL BE UNAVAILABLE REACHED OUT TO PATIENT TO ASSIST WITH SCHEDULING SPOKE WITH PATIENT SHE OKAY'D NEW APPT DATE. Allergies As of Date: 03/10/2024 Noted Allergy Reaction AMOXICILLIN 10/16/2013 2 - Rash Comments: If already mixed with a mediction I react from the mixture Pt. states AUGMENTIN (AMOXICILLIN-POT CLAVUL*11/03/2023 2 - Rash AZITHROMYCIN 10/16/2013 4 - Hives BACITRACIN 11/03/2023 2 - Rash CHLORHEXIDINE 11/03/2023 2 - Rash CLINDAMYCIN 10/16/2013 4 - Hives FLAGYL (METRONIDAZOLE HCL) 10/16/2013 2 - Rash 9 - Itching MOBIC (MELOXICAM) 10/16/2013 2 - Rash 9 - Itching MONTELUKAST 11/03/2023 2 - Rash NEOSPORIN ([id number]* 2 - Rash SULFA (SULFONAMIDE ANTIBIOTICS) 10/16/2013 2 - Rash 4 - Hives Date Reviewed: 11/04/2023 Reviewed by: Abrahan Stern RN - Fully Assessed Reason for Visit: Appointment [186] Prescriptions as of 03/10/2024 - apixaban (ELIQUIS) 5 mg tab(s) Take 1 tablet by mouth two times a day. - loratadine (CLARITIN) 10 mg tablet Take 1 tablet by mouth once daily. - acetaminophen (TYLENOL) 500 mg tablet Take 2 tablets by mouth every 6 hours as needed for pain. - aspirin, enteric coated (ASPIRIN, ENTERIC COATED) 81 mg EC tablet Take 81 mg by mouth once daily. - cyanocobalamin (VITAMIN B-12) 1,000 mcg tab Take 1,000 mcg by mouth once daily. - calcium carbonate (CALCIUM 600) 600 mg calcium (1,500 mg) tab Take 600 mg by mouth once daily. - amLODIPine (NORVASC) 5 mg tablet Take 5 mg by mouth once daily. - losartan (COZAAR) 100 mg tablet Take 100 mg by mouth once daily. - isosorbide mononitrate ER (IMDUR) 60 mg 24 hr tablet Take 60 mg by mouth once daily. - hdukensrmkf-oeocdumow-xdzg nter (TRELEGY ELLIPTA) 200-62.5-25 mcg inhalation powder Inhale 1 Puff as instructed once daily. - traZODone (DESYREL) 50 mg tablet Take 50 mg by mouth daily at bedtime. - loperamide (ANTI-DIARRHEAL) 2 mg cap(s) Take 2 mg by mouth once daily. - hyoscyamine sublingual (LEVSIN SL) 0.125 mg Dissolve 0.125 mg under the tongue three times a day. - colestipol (COLESTID) 1 gram tablet Take 1 g by mouth once daily. - Ipratropium [place] (ATROVENT) 21 mcg (0.03 %) nasal spray Use 2 Sprays in the nose once daily. - pantoprazole DR (PROTONIX) 40 mg tablet Take 40 mg by mouth once daily. - magnesium oxide (MAG-OX) 400 mg (241.3 mg magnesium) tablet Take 400 mg by mouth once daily. - empagliflozin (JARDIANCE) 10 mg tablet Take 10 mg by mouth daily with breakfast. - ALBUTEROL SULFATE (PROAIR HFA INHALATION) Inhale as instructed every 4 hours as needed. - MULTIVIT WITH IRON-MINERALS (MULTIVITAMIN AND MINERALS ORAL) Take 1 tablet by mouth once daily. - Biotin 10,000 mcg cap Take 10,000 mcg by mouth once daily. - ascorbic acid, vitamin C, (VITAMIN C) 500 mg tablet Take 500 mg by mouth once daily. - cycloSPORINE (RESTASIS) 0.05 % ophthalmic emulsion Use 1 Drop in both eyes twice daily. - CALCIUM CARBONATE (TUMS ORAL) Take 2 tablets by mouth as needed (indigestion). - baclofen 5 mg tablet Take 10 mg by mouth three times a day. Takes 15 mg AM, 10 mg in afternoon and 15 mg PM - POTASSIUM CHLORIDE (KLOR-CON 10 ORAL) Take 10 mEq by mouth twice daily. - furosemide (LASIX) 40 mg tablet Take 40 mg by mouth once daily. - Cholecalciferol, Vitamin D3, (VITAMIN D) 1,000 unit cap Take 1,000 Units by mouth once daily. 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] 12/03/2015 Mixed incontinence [N39.46] 12/03/2015 KANU (acute kidney injury) (HCC) [N17.9] 12/19/2015 Urinary, incontinence, stress female [N39.3] 01/13/2016 High degree atrioventricular block [I44.39] 11/03/2023 KATELYN (obstructive sleep apnea) [G47.33] 11/03/2023 Mild coronary artery disease [I25.10] 11/03/2023 Symptomatic bradycardia [R00.1] 11/03/2023 Left bundle branch block (LBBB) on electrocardi*11/03/2023 Chronic diastolic congestive heart failure (HCC*11/03/2023 Encounter Status:Closed by TRACY IBANEZ on 03/10/24 [facility] KIMBERLY EVERETT ([id number]) 1950 F Date Time Provider Department 03/07/24 AUDI TAPIA During your visit today, we recorded the following information about you: Tracy Ibanez 03/07/2024 2:09 PM Signed 1ST ATTEMPT PER CX/GAGAN LIST 05/08/2024 WILL BE UNAVAILABLE REACHED OUT TO PATIENT TO ASSIST WITH SCHEDULING, UNABLE TO REACH HER A VM WAS LEFT WITH CALL BACK NUMBER. Allergies As of Date: 03/07/2024 Noted Allergy Reaction AMOXICILLIN 10/16/2013 2 - Rash Comments: If already mixed with a mediction I react from the mixture Pt. states AUGMENTIN (AMOXICILLIN-POT CLAVUL*11/03/2023 2 - Rash AZITHROMYCIN 10/16/2013 4 - Hives BACITRACIN 11/03/2023 2 - Rash CHLORHEXIDINE 11/03/2023 2 - Rash CLINDAMYCIN 10/16/2013 4 - Hives FLAGYL (METRONIDAZOLE HCL) 10/16/2013 2 - Rash 9 - Itching MOBIC (MELOXICAM) 10/16/2013 2 - Rash 9 - Itching MONTELUKAST 11/03/2023 2 - Rash NEOSPORIN ([id number]* 2 - Rash SULFA (SULFONAMIDE ANTIBIOTICS) 10/16/2013 2 - Rash 4 - Hives Date Reviewed: 11/04/2023 Reviewed by: Abrahan Stern RN - Fully Assessed Reason for Visit: Appointment [186] Prescriptions as of 03/07/2024 - apixaban (ELIQUIS) 5 mg tab(s) Take 1 tablet by mouth two times a day. - loratadine (CLARITIN) 10 mg tablet Take 1 tablet by mouth once daily. - acetaminophen (TYLENOL) 500 mg tablet Take 2 tablets by mouth every 6 hours as needed for pain. - aspirin, enteric coated (ASPIRIN, ENTERIC COATED) 81 mg EC tablet Take 81 mg by mouth once daily. - cyanocobalamin (VITAMIN B-12) 1,000 mcg tab Take 1,000 mcg by mouth once daily. - calcium carbonate (CALCIUM 600) 600 mg calcium (1,500 mg) tab Take 600 mg by mouth once daily. - amLODIPine (NORVASC) 5 mg tablet Take 5 mg by mouth once daily. - losartan (COZAAR) 100 mg tablet Take 100 mg by mouth once daily. - isosorbide mononitrate ER (IMDUR) 60 mg 24 hr tablet Take 60 mg by mouth once daily. - ztembfnczow-tpuizgoyo-ryzp nter (TRELEGY ELLIPTA) 200-62.5-25 mcg inhalation powder Inhale 1 Puff as instructed once daily. - traZODone (DESYREL) 50 mg tablet Take 50 mg by mouth daily at bedtime. - loperamide (ANTI-DIARRHEAL) 2 mg cap(s) Take 2 mg by mouth once daily. - hyoscyamine sublingual (LEVSIN SL) 0.125 mg Dissolve 0.125 mg under the tongue three times a day. - colestipol (COLESTID) 1 gram tablet Take 1 g by mouth once daily. - Ipratropium [place] (ATROVENT) 21 mcg (0.03 %) nasal spray Use 2 Sprays in the nose once daily. - pantoprazole DR (PROTONIX) 40 mg tablet Take 40 mg by mouth once daily. - magnesium oxide (MAG-OX) 400 mg (241.3 mg magnesium) tablet Take 400 mg by mouth once daily. - empagliflozin (JARDIANCE) 10 mg tablet Take 10 mg by mouth daily with breakfast. - ALBUTEROL SULFATE (PROAIR HFA INHALATION) Inhale as instructed every 4 hours as needed. - MULTIVIT WITH IRON-MINERALS (MULTIVITAMIN AND MINERALS ORAL) Take 1 tablet by mouth once daily. - Biotin 10,000 mcg cap Take 10,000 mcg by mouth once daily. - ascorbic acid, vitamin C, (VITAMIN C) 500 mg tablet Take 500 mg by mouth once daily. - cycloSPORINE (RESTASIS) 0.05 % ophthalmic emulsion Use 1 Drop in both eyes twice daily. - CALCIUM CARBONATE (TUMS ORAL) Take 2 tablets by mouth as needed (indigestion). - baclofen 5 mg tablet Take 10 mg by mouth three times a day. Takes 15 mg AM, 10 mg in afternoon and 15 mg PM - POTASSIUM CHLORIDE (KLOR-CON 10 ORAL) Take 10 mEq by mouth twice daily. - furosemide (LASIX) 40 mg tablet Take 40 mg by mouth once daily. - Cholecalciferol, Vitamin D3, (VITAMIN D) 1,000 unit cap Take 1,000 Units by mouth once daily. 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] 12/03/2015 Mixed incontinence [N39.46] 12/03/2015 KANU (acute kidney injury) (HCC) [N17.9] 12/19/2015 Urinary, incontinence, stress female [N39.3] 01/13/2016 High degree atrioventricular block [I44.39] 11/03/2023 KATELYN (obstructive sleep apnea) [G47.33] 11/03/2023 Mild coronary artery disease [I25.10] 11/03/2023 Symptomatic bradycardia [R00.1] 11/03/2023 Left bundle branch block (LBBB) on electrocardi*11/03/2023 Chronic diastolic congestive heart failure (HCC*11/03/2023 Encounter Status:Closed by TRACY IBANEZ on 03/07/24 [facility] 12-16-2023 CNPN Telephone (CARDMN) -- KIMBERLY EVERETT ([id number]) 1950 F Date Time Provider Department 12/16/23 GARLAND LOCKETT During your visit today, we recorded the following information about you: Nel Bray RN 12/16/2023 3:48 PM Signed ----- Message from Garland Lockett MD sent at 12/16/2023 2:30 PM EDT ----- Regarding: RE: AF Thanks Teresa. Davis - can you please see if she is open to starting Eliquis? I have only met her once on the inpatient service but unless she knows of a compelling reason not to start A/C, then I am happy to prescribe this to her. Juan JoseGinger Garland ----- Message ----- From: Dimple Hay RN Sent: 12/16/2023 2:22 PM EDT To: Nel Bray RN; Garland Lockett MD Subject: AF Hi! This patient had a PPM inserted 11/05/23. At time of insertion she was going to try to find an EP closer to home to follow with however she came back today for her 6 week f/u and has decided to stay with Dr Lockett. She did show AF on her device check. Longest episode was ~ 8hrs. She is not on anticoagulation. She said she has had some AF in the past and her other lead burner helper never did anything about it. Just a little FYI. I assisted her to make an Reppler appt. On her way out today. She wants all of her care here now. I am going to get her set up with remotes also. DUAL LEAD PACEMAKER EVALUATION PRESENTS FOR: 4-6 week check PRESENTING EGM: /ELECTRONIC HEAT SEAL OPERATOR UNDERLYING RHYTHM: SR BATTERY STATUS: Estimated time remaining to CHANCE is 11.3 yrs. COUNTERS SINCE: 11/04/22 ATRIAL ARRHYTHMIAS: There were 23 triggered episodes of atrial high rates with EGMs showing AF. Longest lasting ~8 hrs. Total time 2.1%. Anticoagulants listed: None VENTRICULAR ARRHYTHMIAS: There have been no ventricular detections since the last evaluation. LEAD MEASUREMENTS: Capture and sensing are appropriate. The pacing outputs maintain safety margin. Review of the lead impedance trends are normal. IMPLANT SITE/ SYMPTOMS: The incision and pocket are pain-free (0/10), well healed and without signs of erosion or infection. No arm swelling, syncope, pre-syncope or device related pocket stimulation. OTHER DIAGNOSTICS: RA pacing 1.8%. RV pacing 97.1% PROGRAMMING CHANGES MADE TODAY: RA/RV amplitude adjusted based on testing today, Acute phases Off, Partial + On FOLLOW UP: Will enroll in CL and order Relay, schedule 1st remote. Assisted patient to schedule [employer] appt. Thanks Nel Martinez RN 12/16/2023 3:49 PM Signed Contacted patient who states she already has 'bleeding issues; when I get cut I bleed a lot'. Denies any life threatening bleeding, GI bleeding or intracranial bleeding. Open to taking eliquis for stroke protection. Requests script be sent to [facility] in chart. Garland Gilbert RN, MD 12/16/2023 3:58 PM Signed Addended by: GARLAND LOCKETT on: 12/16/2023 03:58 PM Modules accepted: Orders Allergies As of Date: 12/16/2023 Noted Allergy Reaction AMOXICILLIN 10/16/2013 2 - Rash Comments: If already mixed with a mediction I react from the mixture Pt. states AUGMENTIN (AMOXICILLIN-POT CLAVUL*11/03/2023 2 - Rash AZITHROMYCIN 10/16/2013 4 - Hives BACITRACIN 11/03/2023 2 - Rash CHLORHEXIDINE 11/03/2023 2 - Rash CLINDAMYCIN 10/16/2013 4 - Hives FLAGYL (METRONIDAZOLE HCL) 10/16/2013 2 - Rash 9 - Itching MOBIC (MELOXICAM) 10/16/2013 2 - Rash 9 - Itching MONTELUKAST 11/03/2023 2 - Rash NEOSPORIN ([id number]* 2 - Rash SULFA (SULFONAMIDE ANTIBIOTICS) 10/16/2013 2 - Rash 4 - Hives Date Reviewed: 11/04/2023 Reviewed by: Abrahan Stern RN - Fully Assessed Order(s):apixaban (ELIQUIS) 5 mg tab(s)Take 1 tablet by mouth two times a day.Disp: 60 tabletRfl: 5 Prescriptions as of 12/16/2023 - apixaban (ELIQUIS) 5 mg tab(s) Take 1 tablet by mouth two times a day. - loratadine (CLARITIN) 10 mg tablet Take 1 tablet by mouth once daily. - acetaminophen (TYLENOL) 500 mg tablet Take 2 tablets by mouth every 6 hours as needed for pain. - aspirin, enteric coated (ASPIRIN, ENTERIC COATED) 81 mg EC tablet Take 81 mg by mouth once daily. - cyanocobalamin (VITAMIN B-12) 1,000 mcg tab Take 1,000 mcg by mouth once daily. - calcium carbonate (CALCIUM 600) 600 mg calcium (1,500 mg) tab Take 600 mg by mouth once daily. - amLODIPine (NORVASC) 5 mg tablet Take 5 mg by mouth once daily. - losartan (COZAAR) 100 mg tablet Take 100 mg by mouth once daily. - isosorbide mononitrate ER (IMDUR) 60 mg 24 hr tablet Take 60 mg by mouth once daily. - regaxwmkcts-kwssuujzi-vdvc nter (TRELEGY ELLIPTA) 200-62.5-25 mcg inhalation powder Inhale 1 Puff as instructed once daily. - traZODone (DESYREL) 50 mg tablet Take 50 mg by mouth daily at bedtime. - loperamide (ANTI-DIARRHEAL) 2 mg cap(s) Take 2 mg by mouth once daily. - hyoscyamine sublingual (LEVSIN SL) 0.125 mg Dissolve 0.125 mg und (more content not included)... Normal [facility] No Panel Informationon 12-15 BLANK _ [facility] Implant Date 11/04/2023 [facility]ER [facility] CHECKon AV Delay Adaptive Paced Minimum (ms) 180 ms [facility] AV Delay Adaptive Sensed Minimum (ms) 150 ms [facility] AV Delay Adaptive Status DISABLED [facility] Battery Voltage (volts) 3.18 V [facility] Harris RA Pacing Amplitude (volts) 2 V [facility] Harris RA Pacing Polarity BI [facility] Harris RA Pacing Pulse Width (ms) 0.4 ms [facility] Harris RA Sensing Amplitude (mvolts) 0.3 mV [facility] Harris RA Sensing Blanking Period (ms) 150 ms [facility] Harris RA Sensing Polarity BI [facility] Harris RA Sensing Refractory Period (ms) Auto [facility] Harris RV Pacing Amplitude (volts) 2.5 V [facility] Harris RV Pacing Polarity BI [facility] Harris RV Pacing Pulse Width (ms) 0.4 ms [facility] Harris RV Sensing Amplitude (mvolts) 0.9 mV [facility] Harris RV Sensing Blanking Period (ms) 200 ms [facility] Harris RV Sensing Polarity BI [facility] Hysteresis Rate (bpm) DISABLED [facility] Lead1 Mfg MDT [facility] Lead2 Mfg MDT [facility] Location Unknown [facility] Location RA [facility] Lower Rate (bpm) 60 {beats}/min [facility] Max Sensor Rate (bmp) 130 {beats}/min [facility] Model [id number] [place] XT DR MRI Cl [facility] Model 3830 Select[employer]ure MR I SurePedro [facility] Model 5076 CapSureFix Novus [facility] Pacemaker Dependent? NO [facility] Pacing Mode DDD [facility] PM-Device Mfg MDT [facility] PM-Percent Pacing (A) 1.85 % [facility] PM-Percent Pacing (V) 97.09 % [facility] PM-PMT Intervention ENABLED [facility] PM-PVC Intervention ENABLED [facility] PM-Rate Modulation Acceleration Reaction 30 s [facility] PM-Rate Modulation ADL Rate (bpm) 95 {beats}/min [facility] PM-Rate Modulation Deceleration Exercise [facility] PM-Rate Modulation Bailey 3 [facility] PM-Rate Modulation Threshold Low [facility] RA Bipolar Impedance ohms 437 ohm [facility] RA Unipolar Impedance ohms 285 ohm [facility] Rhythm Normal Sinus Rhythm [facility] RV Bipolar Impedance ohms 551 ohm [facility] RV Unipolar Impedance 380 ohm [facility] Serial Number [id number] [facility] Serial Number [id number] [facility] Serial Number [id number] [facility] Thresh RA Capture Amplitude (volts) 0.875 V [facility] Thresh RA Capture Duration (ms) 0.4 ms [facility] Thresh RA Sensing Amplitude (mvolts) 1.875 mV [facility] Thresh RV Capture Amplitude (volts) 0.875 V [facility] Thresh RV Capture Duration (ms) 0.4 ms [facility] Thresh RV Sensing Amplitude (mvolts) 17 mV [facility] Tracking Rate (bpm) 130 {beats}/min [facility] 12/16/2023 Formattin g of this note might be different from the original. DUAL LEAD PACEMAKER EVALUATION PRESENTS FOR: 4-6 week check PRESENTING EGM: /ELECTRONIC HEAT SEAL OPERATOR UNDERLYING RHYTHM: SR BATTERY STATUS: Estimated time remaining to CHACNE is 11.3 yrs. COUNTERS SINCE: 11/04/22 ATRIAL ARRHYTHMIAS: There were 23 triggered episodes of atrial high rates with EGMs showing AF. Longest lasting ~8 hrs. Total time 2.1%. Anticoagulants listed: None VENTRICULAR ARRHYTHMIAS: There have been no ventricular detections since the last evaluation. LEAD MEASUREMENTS: Capture and sensing are appropriate. The pacing outputs maintain safety margin. Review of the lead impedance trends are normal. IMPLANT SITE/ SYMPTOMS: The incision and pocket are pain-free (0/10), well healed and without signs of erosion or infection. No arm swelling, syncope, pre-syncope or device related pocket stimulation. OTHER DIAGNOSTICS: RA pacing 1.8%. RV pacing 97.1% PROGRAMMING CHANGES MADE TODAY: RA/RV amplitude adjusted based on testing today, Acute phases Off, Partial + On FOLLOW UP: Will enroll in CL and order Relay, schedule 1st remote. Assisted patient to schedule general Cards appt. Dimple Hay RN NOTE TO PROVIDERS: CARD Flowsheets contain detailed device programming and testing data. Paceart/Interrogation PDF can be found under CARDIAC DATA AND REPORT, Scanned Documents section. [facility] CNPMarissa 11-18-2023 CNPN Telephone (CARDMN) -- KIMBERLY EVERETT ([id number]) 1950 F Date Time Provider Department 11/18/23 GARLAND LOCKETT During your visit today, we recorded the following information about you: Nelly Zavala Tech 11/18/2023 10:27 AM Signed Post Implant follow up call: Date: 11/18/2023 Name: Kimberly Everett Is your incision: Red: No Open: No Swollen: No Draining: No Steri Strips: still intact If the device is an ICD, have you received any shocks: N/A Have you received your temporary or permanent ID card: Yes Do you have your f/u appointment: Yes Appointments for Next 60 Days Date Time Provider Location Dept Phone 12/16/2023 1:30 PM DEVICE [facility]IC [facility] [phone] Any scheduling issues:No Questions moving forward: No Patient contacted at [phone] (home) Joy Núñez Allergies As of Date: 11/18/2023 Noted Allergy Reaction AMOXICILLIN 10/16/2013 2 - Rash Comments: If already mixed with a mediction I react from the mixture Pt. states AUGMENTIN (AMOXICILLIN-POT CLAVUL*11/03/2023 2 - Rash AZITHROMYCIN 10/16/2013 4 - Hives BACITRACIN 11/03/2023 2 - Rash CHLORHEXIDINE 11/03/2023 2 - Rash CLINDAMYCIN 10/16/2013 4 - Hives FLAGYL (METRONIDAZOLE HCL) 10/16/2013 2 - Rash 9 - Itching MOBIC (MELOXICAM) 10/16/2013 2 - Rash 9 - Itching MONTELUKAST 11/03/2023 2 - Rash NEOSPORIN ([id number]* 2 - Rash SULFA (SULFONAMIDE ANTIBIOTICS) 10/16/2013 2 - Rash 4 - Hives Date Reviewed: 11/04/2023 Reviewed by: Abrahan Stern RN - Fully Assessed Reason for Visit: Courtesy call [Other] Cmt: Device survey Prescriptions as of 11/18/2023 - loratadine (CLARITIN) 10 mg tablet Take 1 tablet by mouth once daily. - acetaminophen (TYLENOL) 500 mg tablet Take 2 tablets by mouth every 6 hours as needed for pain. - aspirin, enteric coated (ASPIRIN, ENTERIC COATED) 81 mg EC tablet Take 81 mg by mouth once daily. - cyanocobalamin (VITAMIN B-12) 1,000 mcg tab Take 1,000 mcg by mouth once daily. - calcium carbonate (CALCIUM 600) 600 mg calcium (1,500 mg) tab Take 600 mg by mouth once daily. - amLODIPine (NORVASC) 5 mg tablet Take 5 mg by mouth once daily. - losartan (COZAAR) 100 mg tablet Take 100 mg by mouth once daily. - isosorbide mononitrate ER (IMDUR) 60 mg 24 hr tablet Take 60 mg by mouth once daily. - miffuxcpqqq-mvckngbis-hcto nter (TRELEGY ELLIPTA) 200-62.5-25 mcg inhalation powder Inhale 1 Puff as instructed once daily. - traZODone (DESYREL) 50 mg tablet Take 50 mg by mouth daily at bedtime. - loperamide (ANTI-DIARRHEAL) 2 mg cap(s) Take 2 mg by mouth once daily. - hyoscyamine sublingual (LEVSIN SL) 0.125 mg Dissolve 0.125 mg under the tongue three times a day. - colestipol (COLESTID) 1 gram tablet Take 1 g by mouth once daily. - Ipratropium [place] (ATROVENT) 21 mcg (0.03 %) nasal spray Use 2 Sprays in the nose once daily. - pantoprazole DR (PROTONIX) 40 mg tablet Take 40 mg by mouth once daily. - magnesium oxide (MAG-OX) 400 mg (241.3 mg magnesium) tablet Take 400 mg by mouth once daily. - empagliflozin (JARDIANCE) 10 mg tablet Take 10 mg by mouth daily with breakfast. - ALBUTEROL SULFATE (PROAIR HFA INHALATION) Inhale as instructed every 4 hours as needed. - MULTIVIT WITH IRON-MINERALS (MULTIVITAMIN AND MINERALS ORAL) Take 1 tablet by mouth once daily. - Biotin 10,000 mcg cap Take 10,000 mcg by mouth once daily. - ascorbic acid, vitamin C, (VITAMIN C) 500 mg tablet Take 500 mg by mouth once daily. - cycloSPORINE (RESTASIS) 0.05 % ophthalmic emulsion Use 1 Drop in both eyes twice daily. - CALCIUM CARBONATE (TUMS ORAL) Take 2 tablets by mouth as needed (indigestion). - baclofen 5 mg tablet Take 10 mg by mouth three times a day. Takes 15 mg AM, 10 mg in afternoon and 15 mg PM - POTASSIUM CHLORIDE (KLOR-CON 10 ORAL) Take 10 mEq by mouth twice daily. - furosemide (LASIX) 40 mg tablet Take 40 mg by mouth once daily. - Cholecalciferol, Vitamin D3, (VITAMIN D) 1,000 unit cap Take 1,000 Units by mouth once daily. 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 Normal [facility] CNPNon 11-11-2023 CNPN Telephone (NURSMN) -- KIMBERLY EVERETT ([id number]) 1950 F Date Time Provider Department 11/11/23 ANITA TENAMN During your visit today, we recorded the following information about you: Anita Tena RN 11/11/2023 10:20 AM Signed We are calling to check on how you are doing since our last phone call. Are you having any medical concerns we can help you with today? -No new medical concerns today. Patient is not up to driving yet but she was wondering if someone can tell her how long she is not allowed to drive for. We reviewed her discharge packet, including activity and limitations and did not see the answer. Please advise. Call Outcome: Non urgent routing to EP pool Non urgent and closing statement given. PD RN verified patients name and date of . Anita Tena RN Allergies As of Date: 11/11/2023 Noted Allergy Reaction AMOXICILLIN 10/16/2013 2 - Rash Comments: If already mixed with a mediction I react from the mixture Pt. states AUGMENTIN (AMOXICILLIN-POT CLAVUL*11/03/2023 2 - Rash AZITHROMYCIN 10/16/2013 4 - Hives BACITRACIN 11/03/2023 2 - Rash CHLORHEXIDINE 11/03/2023 2 - Rash CLINDAMYCIN 10/16/2013 4 - Hives FLAGYL (METRONIDAZOLE HCL) 10/16/2013 2 - Rash 9 - Itching MOBIC (MELOXICAM) 10/16/2013 2 - Rash 9 - Itching MONTELUKAST 11/03/2023 2 - Rash NEOSPORIN ([id number]* 2 - Rash SULFA (SULFONAMIDE ANTIBIOTICS) 10/16/2013 2 - Rash 4 - Hives Date Reviewed: 11/04/2023 Reviewed by: Abrahan Stern RN - Fully Assessed Reason for Visit: Post Dc Program Call - Needs Attn [[id number]] Cmt: Driving limitation question Prescriptions as of 11/12/2023 - loratadine (CLARITIN) 10 mg tablet Take 1 tablet by mouth once daily. - acetaminophen (TYLENOL) 500 mg tablet Take 2 tablets by mouth every 6 hours as needed for pain. - aspirin, enteric coated (ASPIRIN, ENTERIC COATED) 81 mg EC tablet Take 81 mg by mouth once daily. - cyanocobalamin (VITAMIN B-12) 1,000 mcg tab Take 1,000 mcg by mouth once daily. - calcium carbonate (CALCIUM 600) 600 mg calcium (1,500 mg) tab Take 600 mg by mouth once daily. - amLODIPine (NORVASC) 5 mg tablet Take 5 mg by mouth once daily. - losartan (COZAAR) 100 mg tablet Take 100 mg by mouth once daily. - isosorbide mononitrate ER (IMDUR) 60 mg 24 hr tablet Take 60 mg by mouth once daily. - itexshlkrlt-vtfpdamly-edcl nter (TRELEGY ELLIPTA) 200-62.5-25 mcg inhalation powder Inhale 1 Puff as instructed once daily. - traZODone (DESYREL) 50 mg tablet Take 50 mg by mouth daily at bedtime. - loperamide (ANTI-DIARRHEAL) 2 mg cap(s) Take 2 mg by mouth once daily. - hyoscyamine sublingual (LEVSIN SL) 0.125 mg Dissolve 0.125 mg under the tongue three times a day. - colestipol (COLESTID) 1 gram tablet Take 1 g by mouth once daily. - Ipratropium [place] (ATROVENT) 21 mcg (0.03 %) nasal spray Use 2 Sprays in the nose once daily. - pantoprazole DR (PROTONIX) 40 mg tablet Take 40 mg by mouth once daily. - magnesium oxide (MAG-OX) 400 mg (241.3 mg magnesium) tablet Take 400 mg by mouth once daily. - empagliflozin (JARDIANCE) 10 mg tablet Take 10 mg by mouth daily with breakfast. - ALBUTEROL SULFATE (PROAIR HFA INHALATION) Inhale as instructed every 4 hours as needed. - MULTIVIT WITH IRON-MINERALS (MULTIVITAMIN AND MINERALS ORAL) Take 1 tablet by mouth once daily. - Biotin 10,000 mcg cap Take 10,000 mcg by mouth once daily. - ascorbic acid, vitamin C, (VITAMIN C) 500 mg tablet Take 500 mg by mouth once daily. - cycloSPORINE (RESTASIS) 0.05 % ophthalmic emulsion Use 1 Drop in both eyes twice daily. - CALCIUM CARBONATE (TUMS ORAL) Take 2 tablets by mouth as needed (indigestion). - baclofen 5 mg tablet Take 10 mg by mouth three times a day. Takes 15 mg AM, 10 mg in afternoon and 15 mg PM - POTASSIUM CHLORIDE (KLOR-CON 10 ORAL) Take 10 mEq by mouth twice daily. - furosemide (LASIX) 40 mg tablet Take 40 mg by mouth once daily. - Cholecalciferol, Vitamin D3, (VITAMIN D) 1,000 unit cap Take 1,000 Units by mouth once daily. Meds Comments as of 11/08/2023: 11/08/23 The medications are managed by this patient by: PATIENT Foster Gutierrez, [facility] Problem List As Of Date 11/11/2023 Noted Resolved Hypertension [I10] 12/04/2013 COPD (chronic obstructive pulmonary disease) (H*12/04/2013 Ventral hernia [K43.9] 12/04/2013 06/11/2014 Preop cardiovascular exam [Z01.810] 12/04/2013 S/P ventral herniorrhaphy [Z98.890, Z87.19] 06/11/2014 Midline cystocele [N81.11] 12/03/2015 Vaginal vault prolapse [N81.9] 12/03/2015 Mixed incontinence [N39.46] 12/03/2015 KANU (acute kidney injury) (HCC) [N17.9] 12/19/2015 Urinary, incontinence, stress female [N39.3] 01/13/2016 High degree atrioventricular block [I44.39] 11/03/2023 KATELYN (obstructive sleep apnea) [G47.33] 11/03/2023 Mild coronary artery disease [I25.10] 11/03/2023 Sympt (more content not included)... Normal [facility] CNPNon 11-09-2023 CNPN Telephone (CARDMN) -- KIMBERLY EVERETT ([id number]) 1950 F Date Time Provider Department 11/09/23 GARLAND LOCKETT During your visit today, we recorded the following information about you: Gardenia Ford, RN 11/10/2023 11:22 AM Signed Patient reports the swelling is the same (not getting worse). Denies fever, drainage or redness. She has some mild soreness/tightness at the site due to the swelling. Yes it is ok to use an ice pack, recommended no more than 15 minutes at a time and to keep a barrier between the pack and her skin. Reviewed infection symptoms, patient will call back if any concerns for infection or if swelling worsens. Allergies As of Date: 11/09/2023 Noted Allergy Reaction AMOXICILLIN 10/16/2013 2 - Rash Comments: If already mixed with a mediction I react from the mixture Pt. states AUGMENTIN (AMOXICILLIN-POT CLAVUL*11/03/2023 2 - Rash AZITHROMYCIN 10/16/2013 4 - Hives BACITRACIN 11/03/2023 2 - Rash CHLORHEXIDINE 11/03/2023 2 - Rash CLINDAMYCIN 10/16/2013 4 - Hives FLAGYL (METRONIDAZOLE HCL) 10/16/2013 2 - Rash 9 - Itching MOBIC (MELOXICAM) 10/16/2013 2 - Rash 9 - Itching MONTELUKAST 11/03/2023 2 - Rash NEOSPORIN ([id number]* 2 - Rash SULFA (SULFONAMIDE ANTIBIOTICS) 10/16/2013 2 - Rash 4 - Hives Date Reviewed: 11/04/2023 Reviewed by: Abrahan Stern RN - Fully Assessed Reason for Visit: Patient Question [9902] Cmt: Patient had device implanted last Thrusday and she states having swelling. Wants to know, if it is okay to use ice pack. Please call her at [phone]. Prescriptions as of 11/10/2023 - loratadine (CLARITIN) 10 mg tablet Take 1 tablet by mouth once daily. - acetaminophen (TYLENOL) 500 mg tablet Take 2 tablets by mouth every 6 hours as needed for pain. - aspirin, enteric coated (ASPIRIN, ENTERIC COATED) 81 mg EC tablet Take 81 mg by mouth once daily. - cyanocobalamin (VITAMIN B-12) 1,000 mcg tab Take 1,000 mcg by mouth once daily. - calcium carbonate (CALCIUM 600) 600 mg calcium (1,500 mg) tab Take 600 mg by mouth once daily. - amLODIPine (NORVASC) 5 mg tablet Take 5 mg by mouth once daily. - losartan (COZAAR) 100 mg tablet Take 100 mg by mouth once daily. - isosorbide mononitrate ER (IMDUR) 60 mg 24 hr tablet Take 60 mg by mouth once daily. - ggfakucibdj-pdckirfcj-borb nter (TRELEGY ELLIPTA) 200-62.5-25 mcg inhalation powder Inhale 1 Puff as instructed once daily. - traZODone (DESYREL) 50 mg tablet Take 50 mg by mouth daily at bedtime. - loperamide (ANTI-DIARRHEAL) 2 mg cap(s) Take 2 mg by mouth once daily. - hyoscyamine sublingual (LEVSIN SL) 0.125 mg Dissolve 0.125 mg under the tongue three times a day. - colestipol (COLESTID) 1 gram tablet Take 1 g by mouth once daily. - Ipratropium [place] (ATROVENT) 21 mcg (0.03 %) nasal spray Use 2 Sprays in the nose once daily. - pantoprazole DR (PROTONIX) 40 mg tablet Take 40 mg by mouth once daily. - magnesium oxide (MAG-OX) 400 mg (241.3 mg magnesium) tablet Take 400 mg by mouth once daily. - empagliflozin (JARDIANCE) 10 mg tablet Take 10 mg by mouth daily with breakfast. - ALBUTEROL SULFATE (PROAIR HFA INHALATION) Inhale as instructed every 4 hours as needed. - MULTIVIT WITH IRON-MINERALS (MULTIVITAMIN AND MINERALS ORAL) Take 1 tablet by mouth once daily. - Biotin 10,000 mcg cap Take 10,000 mcg by mouth once daily. - ascorbic acid, vitamin C, (VITAMIN C) 500 mg tablet Take 500 mg by mouth once daily. - cycloSPORINE (RESTASIS) 0.05 % ophthalmic emulsion Use 1 Drop in both eyes twice daily. - CALCIUM CARBONATE (TUMS ORAL) Take 2 tablets by mouth as needed (indigestion). - baclofen 5 mg tablet Take 10 mg by mouth three times a day. Takes 15 mg AM, 10 mg in afternoon and 15 mg PM - POTASSIUM CHLORIDE (KLOR-CON 10 ORAL) Take 10 mEq by mouth twice daily. - furosemide (LASIX) 40 mg tablet Take 40 mg by mouth once daily. - Cholecalciferol, Vitamin D3, (VITAMIN D) 1,000 unit cap Take 1,000 Units by mouth once daily. 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 [facility] -- KIMBERLY EVERETT ([id number]) 1950 F Date Time Provider Department 11/08/23 ANITA TENA During your visit today, we recorded the following information about you: Anita Tena RN 11/08/2023 1:33 PM Signed 1. Have you noticed any increase in shortness of breath since you left the hospital? -No 2. Have you noticed any increased swelling in your feet , ankles, or stomach? (Skip for vascular pts) -No 3. Have you gained more than 2-3 pounds since discharge? (Skip for vascular AND EP pts) -NA EP patient 4. Have you noticed any change in your incision or wound since you were discharged? (as we want you to be aware of any signs of infection) -No 5. Are you having any increased pain since discharge? If yes: What type of pain and where? (pressure, sharp pain, dull pain, etc.) -No 6. Have you had any unplanned trips to the emergency department or hospital since you were discharged? If yes - why? -No 7. Do you have any questions about your medications? -No 8. Were you able to fill all of the prescribed medications? -Yes 9. Do you have a doctor?s appointment scheduled or is someone working on getting you a follow-up appointment? -Yes All clear and closing statement given. PD RN verified patients name and date of . Anita Tena RN Allergies As of Date: 11/08/2023 Noted Allergy Reaction AMOXICILLIN 10/16/2013 2 - Rash Comments: If already mixed with a mediction I react from the mixture Pt. states AUGMENTIN (AMOXICILLIN-POT CLAVUL*11/03/2023 2 - Rash AZITHROMYCIN 10/16/2013 4 - Hives BACITRACIN 11/03/2023 2 - Rash CHLORHEXIDINE 11/03/2023 2 - Rash CLINDAMYCIN 10/16/2013 4 - Hives FLAGYL (METRONIDAZOLE HCL) 10/16/2013 2 - Rash 9 - Itching MOBIC (MELOXICAM) 10/16/2013 2 - Rash 9 - Itching MONTELUKAST 11/03/2023 2 - Rash NEOSPORIN (EJKJIDRK-[id number]-CI* 2 - Rash SULFA (SULFONAMIDE ANTIBIOTICS) 10/16/2013 2 - Rash 4 - Hives Date Reviewed: 11/04/2023 Reviewed by: Abrahan Stern, RN - Fully Assessed Reason for Visit: Follow Up Phone Call [1419] Cmt: follow up call all clear. Prescriptions as of 11/08/2023 - loratadine (CLARITIN) 10 mg tablet Take 1 tablet by mouth once daily. - acetaminophen (TYLENOL) 500 mg tablet Take 2 tablets by mouth every 6 hours as needed for pain. - aspirin, enteric coated (ASPIRIN, ENTERIC COATED) 81 mg EC tablet Take 81 mg by mouth once daily. - cyanocobalamin (VITAMIN B-12) 1,000 mcg tab Take 1,000 mcg by mouth once daily. - calcium carbonate (CALCIUM 600) 600 mg calcium (1,500 mg) tab Take 600 mg by mouth once daily. - amLODIPine (NORVASC) 5 mg tablet Take 5 mg by mouth once daily. - losartan (COZAAR) 100 mg tablet Take 100 mg by mouth once daily. - isosorbide mononitrate ER (IMDUR) 60 mg 24 hr tablet Take 60 mg by mouth once daily. - erhgalyaujm-rwziltknj-ycny nter (TRELEGY ELLIPTA) 200-62.5-25 mcg inhalation powder Inhale 1 Puff as instructed once daily. - traZODone (DESYREL) 50 mg tablet Take 50 mg by mouth daily at bedtime. - loperamide (ANTI-DIARRHEAL) 2 mg cap(s) Take 2 mg by mouth once daily. - hyoscyamine sublingual (LEVSIN SL) 0.125 mg Dissolve 0.125 mg under the tongue three times a day. - colestipol (COLESTID) 1 gram tablet Take 1 g by mouth once daily. - Ipratropium [place] (ATROVENT) 21 mcg (0.03 %) nasal spray Use 2 Sprays in the nose once daily. - pantoprazole DR (PROTONIX) 40 mg tablet Take 40 mg by mouth once daily. - magnesium oxide (MAG-OX) 400 mg (241.3 mg magnesium) tablet Take 400 mg by mouth once daily. - empagliflozin (JARDIANCE) 10 mg tablet Take 10 mg by mouth daily with breakfast. - ALBUTEROL SULFATE (PROAIR HFA INHALATION) Inhale as instructed every 4 hours as needed. - MULTIVIT WITH IRON-MINERALS (MULTIVITAMIN AND MINERALS ORAL) Take 1 tablet by mouth once daily. - Biotin 10,000 mcg cap Take 10,000 mcg by mouth once daily. - ascorbic acid, vitamin C, (VITAMIN C) 500 mg tablet Take 500 mg by mouth once daily. - cycloSPORINE (RESTASIS) 0.05 % ophthalmic emulsion Use 1 Drop in both eyes twice daily. - CALCIUM CARBONATE (TUMS ORAL) Take 2 tablets by mouth as needed (indigestion). - baclofen 5 mg tablet Take 10 mg by mouth three times a day. Takes 15 mg AM, 10 mg in afternoon and 15 mg PM - POTASSIUM CHLORIDE (KLOR-CON 10 ORAL) Take 10 mEq by mouth twice daily. - furosemide (LASIX) 40 mg tablet Take 40 mg by mouth once daily. - Cholecalciferol, Vitamin D3, (VITAMIN D) 1,000 unit cap Take 1,000 Units by mouth once daily. Meds Comments as of 11/08/2023: 11/08/23 The medications are managed by this patient by: PATIENT Foster Gutierrez, [facility] Problem List As Of Date 11/08/2023 Noted Resolved Hypertension [I10] 12/04/2013 COPD (chronic obstructive pulmonary disease) (H*12/04/2013 Ventral hernia [K43.9] 12/04/2013 (more content not included)... Normal [facility] Basic metabolic 2000 panelon 11-05-2023 Anion gap [Moles/Vol] 11 mmol/L Normal 9-18 [facility] Comment on above: Order Comment: Speci men Type: BLOOD SPECIMENOrdering Facility: [facility] Address: [address] [place], [place] [address] Performed By: #### 2 4321-2, 63146-1 ####[facility] LABCLIA [id number] [employer] [employer] [facility] [place] [place] [address] [place] Calcium [Mass/Vol] 9.1 mg/dL Normal 8.5-10.2 [facility] Comment on above: Order Comment: Speci men Type: BLOOD SPECIMENOrdering Facility: [facility] Address: [address] [place] [address] Performed By: #### 2 4321-2, ####[facility] LABCLIA [id number] [employer] [facility] [place] [place] [address] [place] Chloride [Moles/Vol] 103 mmol/L Normal 97-105 [facility] Comment on above: Order Comment: Speci men Type: BLOOD SPECIMENOrdering Facility: [facility] Address: [address] [place] [address] Performed By: #### 2 2, ####[facility] LABCLIA [id number] [place] [address] [place] CO2 [Moles/Vol] 24 mmol/L Normal 22-30 [facility] Comment on above: Order Comment: Speci men Type: BLOOD SPECIMENOrdering Facility: [facility] Address: [address] [place] [address] Performed By: #### 2 2, ####[facility] LABCLIA [id number] [facility] [address] [place] Creatinine [Mass/Vol] 0.78 mg/dL Normal 0.58-0.96 [facility] Comment on above: Order Comment: Speci men Type: BLOOD SPECIMENOrdering Facility: [facility] Address: [address] [place] [address] Performed By: #### 2 4320-2, ####[facility] LABCLIA [id number] [place] [address] [place] Creatinine and Glomerular filtration rate.predicted panel (S/P/Bld) 81 mL/min/1.73m??? Normal >=60 [facility] Comment on above: Order Comment: Nicol colin Type: BLOOD SPECIMENOrdering Facility: [facility] Address: [address] [place] [address] Result Comment: Wendy mated Glomerular Filtration Rate (eGFR) is calculated using the 2020 CKD-EPI creatinine equation. This equation utilizes serum creatinine, sex, and age as parameters. The creatinine assay has traceable calibration to isotope dilution-mass spectrometry. Refer to KDIGO guidelines for clinical interpretation. In patients with unstable renal function, e.g. those with acute kidney injury, the eGFR may not accurately reflect actual GFR. Performed By: #### 2 4321-2, ####[facility] LABCLIA [id number] [place] [address] [place] Glucose [Mass/Vol] 141 mg/dL High 74-99 [facility] Comment on above: Order Comment: Nicol colin Type: BLOOD SPECIMENOrdering Facility: [facility] Address: [address] [place] [address] Result Comment: The [place] [employer] (ADA) provides guidance for cutoff values for fasting glucose and random glucose. The ADA defines fasting as no caloric intake for at least 8 hours. Fasting plasma glucose results between 100 to 125 mg/dL indicate increased risk for diabetes (prediabetes). Fasting plasma glucose results greater than or equal to 126 mg/dL meet the criteria for diagnosis of diabetes. In the absence of unequivocal hyperglycemia, results should be confirmed by repeat testing. In a patient with classic symptoms of hyperglycemia or hyperglycemic crisis, random plasma glucose results greater than or equal to 200 mg/dL meet the criteria for diagnosis of diabetes. Reference: Standards of Medical Care in Diabetes 2016, [place] [employer]. Diabetes Care. 2016.39(Suppl 1). Performed By: #### 2 4321-2, ####[facility] LABCLIA [id number] [place] [id number] [place] Potassium [Moles/Vol] 3.8 mmol/L Normal 3.7-5.1 [facility] Comment on above: Order Comment: Speci men Type: BLOOD SPECIMENOrdering Facility: [facility] Address: [address] [place] [address] Performed By: #### 2 4321-2, ####[facility] LABCLIA [id number] [address] [address] [place] Sodium [Moles/Vol] 138 mmol/L Normal 136-144 [facility] Comment on above: Order Comment: Speci men Type: BLOOD SPECIMENOrdering Facility: [facility] Address: [address] [place] [address] Performed By: #### 2 4321-2, ####[facility] LABCLIA [id number] [place] [address] [place] Urea nitrogen [Mass/Vol] 21 mg/dL Normal 7-21 [facility] Comment on above: Order Comment: Speci men Type: BLOOD SPECIMENOrdering Facility: [facility] Address: [address] [place] [address] Performed By: #### 2 4321-2, ####[facility] LABCLIA [id number] [place] [address] [place] CBC panel Auto (Bld)on 11-04 Erythrocyte distribution width (RBC) [Ratio] 12.9 % Normal 11.5-15.0 [facility] Comment on above: Order Comment: Speci men Type: BLOOD SPECIMENOrdering Facility: [facility] Address: [address] [place] [address] Performed By: #### 5 8410-2 ####[facility] LABCLIA [id number] [place] [address] [place] Hematocrit (Bld) [Volume fraction] 37.1 % Normal 36.0-46.0 [facility] Comment on above: Order Comment: Speci men Type: BLOOD SPECIMENOrdering Facility: [facility] Address: [address] [place] [address] Performed By: #### 5 8410-2 ####[facility] LABCLIA [id number] [place] [address] [place] Hemoglobin (Bld) [Mass/Vol] 12.2 g/dL Normal 11.5-15.5 [facility] Comment on above: Order Comment: Speci men Type: BLOOD SPECIMENOrdering Facility: [facility] Address: [address] [place] [address] Performed By: #### 5 8410-2 ####[facility] LABIA [id number] [place] [address] [place] MCH (RBC) [Entitic mass] 30.3 pg Normal 26.0-34.0 [facility] Comment on above: Order Comment: Speci men Type: BLOOD SPECIMENOrdering Facility: [facility] Address: [address] [place] [address] Performed By: #### 5 8410-2 ####[facility] LABIA [id number] [place] [address] [place] MCHC (RBC) [Mass/Vol] 32.9 g/dL Normal 30.5-36.0 [facility] Comment on above: Order Comment: Speci men Type: BLOOD SPECIMENOrdering Facility: [facility] Address: [address] [place] [address] Performed By: #### 5 8410-2 ####[facility] LABIA [id number] [place] [address] [place] MCV (RBC) [Entitic vol] 92.3 fL Normal 80.0-100.0 [facility] Comment on above: Order Comment: Speci men Type: BLOOD SPECIMENOrdering Facility: [facility] Address: [address] [place] [address] Performed By: #### 5 8410-2 ####[facility] LABIA [id number] [place] [address] [place] Nucleated RBC (Bld) [#/Vol] 10*3/uL Normal <0.01 [facility] Comment on above: Order Comment: Speci men Type: BLOOD SPECIMENOrdering Facility: [facility] Address: [address] [place] [address] Performed By: #### 5 8410-2 ####[facility] LABCLIA [id number] [place] [address] [place] Platelet mean volume (Bld) [Entitic vol] 10.5 fL Normal 9.0-12.7 [facility] Comment on above: Order Comment: Speci men Type: BLOOD SPECIMENOrdering Facility: [facility] Address: [address] [place] [address] Performed By: #### 5 8410-2 ####[facility] LABCLIA [id number] [place] [address] [place] Platelets (Bld) [#/Vol] 229 10*3/uL Normal 150-400 [facility] Comment on above: Order Comment: Speci men Type: BLOOD SPECIMENOrdering Facility: [facility] Address: [address] [place] [address] Performed By: #### 5 8410-2 ####[facility] LABIA [id number] [place] [address] [place] RBC (Bld) [#/Vol] 4.02 10*6/uL Normal 3.90-5.20 [facility] Comment on above: Order Comment: Speci men Type: BLOOD SPECIMENOrdering Facility: [facility] Address: [address] [place] [address] Performed By: #### 5 8410-2 ####[facility] LABCLIA [id number] [place] [address] [place] WBC (Bld) [#/Vol] 11.96 10*3/uL High 3.70-11.00 [facility] Comment on above: Order Comment: Speci men Type: BLOOD SPECIMENOrdering Facility: [facility] Address: [address] [place] [address] Performed By: #### 5 8410-2 ####[facility] LABCLIA [id number] JUDD RODRIGUEZ [id number] OF [facility] CNDSon 11-05-2023 CNDS HNO ID: [id number] Author: GARLAND LOCKETT MD Service: Cardiovascular Medicine Author Type: [employer]ician [employer] Operations Specialist Type: Discharge Summary Filed: 11/05/2023 12:48 Note Text: -- Attestation signed by Garland Lockett MD at 11/05/2023 12:48 PM I agree with the above discharge summary. Garland Lockett MD November 05, 2023 12:48 PM -- Department of Cardiovascular Medicine Discharge Summary (Template ID [id number]) PATIENT NAME: Kimberly Everett ADMISSION DATE: 11/03/2023 DISCHARGE DATE: 11/05/2023 Attending Physician: Garland Lockett MD Code Status: Full Code Primary Service: Electrophysiology, Hvi Admission Diagnosis: 2nd degree 2:1 AV block, symptomatic bradycardia, intermittent LBBB Discharge Diagnosis: 2nd degree 2:1 AV block, symptomatic bradycardia, intermittent LBBB Secondary Diagnoses: Patient Active Hospital Problem List: High degree atrioventricular block (11/03/2023) Hypertension (12/04/2013) COPD (chronic obstructive pulmonary disease) (HCC) (12/04/2013) KATELYN (obstructive sleep apnea) (11/03/2023) Mild coronary artery disease (11/03/2023) Symptomatic bradycardia (11/03/2023) Left bundle branch block (LBBB) on electrocardiogram (11/03/2023) Chronic diastolic congestive heart failure (HCC) (11/03/2023) Reason for Hospitalization: 2nd degree 2:1 AV block, symptomatic bradycardia, intermittent LBBB Patient presented to [facility] on 11/01/23 following an office visit with her PCP Dr. Graham at which time she reported a 3 day history of constant chest/back pain radiating to bilateral arms associated with weakness, dizziness and headaches. EKG in the ED showed 2:1 AV block with LBBB with a heart rate 48 bpm. She was hypertensive with BP 211/85. Troponin was negative. Permanent pacemaker placement was recommended and patient requested transfer to [facility]. Hospital Course: The patient was transferred to the [facility] and admitted to the inpatient Electrophysiology service on 11/03/23. Telemetry showed persistent 2:1 AV block with heart rates 40s. There was intermittent LBBB conduction noted on telemetry. She was hypertensive initially with BP 198/84. She was given additional doses of home anti-hypertensives with improvement. TTE demonstrated LVEF 70% with systolic cavity obliteration with a resultant intracavitary gradient. The patient was taken to the EP lab and underwent implantation of dual-chamber permanent pacemaker with LBBAP lead on 11/04/23 ([employer]). On the following day, cardiac device interrogation demonstrated appropriate capture, sensing and lead impedances. Post-procedure chest xray was unremarkable with leads appropriately positioned in the right atrium and right ventricle. The patient was discharged home in stable condition. Consults: None Major Procedure or Operation: EP Procedure 11/04/23: Type of Procedure: Pacemaker Device: - Implantation of a [employer] BHARTI XT DR AME THORNTON [id number] pulse generator programmed as DDD. Leads: - Implantation of a [employer] 3830-69 left bundle lead atg developer. - Implantation of a [employer] 5076-45 right atrial lead. Summary Findings: - The patient is partially pacemaker dependent with an escape rate of 42. - There were no intraprocedural complications or adverse events. Other Procedures, Testing AND Radiology: Admission EKG 11/03/23: TTE 11/03/23: CONCLUSIONS: - Technically difficult exam due to body habitus and suboptimal positioning. - Exam indication: Abnormal ECG - The left ventricle is normal in size. Left ventricular systolic function is normal. EF = 70 ? 5% (visual est.) There is systolic cavity obliteration with a resultant intracavitary gradient - The right ventricle is normal in size. Right ventricular systolic function is normal. - There is MAC, predominantly posteriorly, though without suspected severe mitral stenosis or regurgitation. - Exam was compared with the prior echocardiographic exam performed on 10/19/2013. Prior study was remote BLE Venous Duplex US 11/04/23: IMPRESSION RIGHT SIDE - DEEP VEINS Negative for acute deep vein thrombosis. Only segments visualized of the posterior tibial veins and peroneal veins. LEFT SIDE - DEEP VEINS Negative for acute deep vein thrombosis. Only segments visualized of the posterior tibial veins and peroneal veins. POST IMPLANT DUAL LEAD PACEMAKER EVALUATION 11/05/23: PRESENTING EGM: /ELECTRONIC HEAT SEAL OPERATOR UNDERLYING RHYTHM: SR BATTERY STATUS: Initializing ATRIAL ARRHYTHMIAS: There have been 0 triggered episodes of AT/AF noted. VENTRICULAR ARRHYTHMIAS: There have not been any ventricular detections since the last evaluation. LEAD MEASUREMENTS: Capture, sensing, and lead impedances are appropriate. IMPLANT SITE/ SYMPTOMS: The implantation site is clean (more content not included)... Normal [facility] ECG COMPLETEon 11-05-2023 ECG COMPLETE Ventricular Rate : 8 5 BPM Atrial Rate : 85 BPM P-R Interval : 174 ms QRS Duration : 118 ms Q-T Interval : 418 ms QTC Calculation(Bazett) : 497 ms Calculated R [place] : 213 degrees Calculated T [place] : 176 degrees ATRIAL-SENSED VENTRICULAR-PACED RHYTHM ABNORMAL ECG Confirmed by RAFAELA KNAPP MD () on 11/15/2023 7:05:08 PM NAME : KIMBERLY EVERETT PID : [id number] : 1950 Gender : Female Race : ORD : [id number] Procedure Date : Nov 05 2023 05:21:25 Edit Date : Nov 15 2023 19:06:20 Diagnosis: ATRIAL-SENSED VENTRICULAR-PACED RHYTHM ABNORMAL ECG Confirmed by RAFAELA KNAPP MD () on 11/15/2023 7:05:08 PM Test Reason : Post-OP Location : 362 : J62 [id number] Overread By : RAFAELA KNAPP MD Edited By : RAFAELA KNAPP MD Referred By : EMMANUELLE TIPTON Acquired by : JERRI MCNULTY Normal [facility] Magnesium SerPl-mCncon 11-04 Magnesium [Mass/Vol] 1.8 mg/dL Normal 1.7-2.3 [facility] Comment on above: Order Comment: Speci men Type: BLOOD SPECIMENOrdering Facility: [facility] Address: [address] [place] [address] Performed By: #### 2 4321-2, 75258-9 ####[facility] LABCLIA [id number] ST. [facility] [id number] [address] [place] PT EDon 11-05-2023 PT ED HNO ID: [id number] Author: JANESSA CALLEJAS DTR Service: Nutrition Therapy Author Type: Tar Heater Operator Type: Patient Education Filed: 11/05/2023 10:45 Note Text: NUTRITION THERAPY PATIENT EDUCATION SERVICE DATE: 11/05/2023 SERVICE TIME: 1044 TOPIC: Heart Failure LEARNING RESPONSE Instruction Provided to: Patient Patient / Family Response: Video Viewed, No Response Method of Instruction: Video Material(s) Provided to Patient: None Follow-Up Plan: Education was provided through video instruction. RN documented in electronic medical record patient watched the Heart Failure Survival Skills Video. Please consult Nutrition Therapy if patient requests individual instructions or has questions following video, otherwise to be followed up at next scheduled visit. Referral (Recommendation): None MNT Billing: $ Routine Care : 1-15 minutes SIGNATURE: Janessa Callejas DTR PATIENT NAME: Kimberly Everett DATE: November 05, 2023 TIME: 10:44 AM PAGER: Normal [facility] XR CHEST 2V FRONTAL/LATon XR CHEST 2V FRONTAL/LAT * * *Final Report* * * DATE OF EXAM: Nov 05 2023 10:07AM JIX [id number] - XR CHEST 2V FRONTAL/LAT / PROCEDURE REASON: Other * * * * Physician Interpretation * * * * EXAMINATION: CHEST RADIOGRAPH (2 VIEW FRONTAL and LATERAL) Clinical History: Other M: XC2_6 Comparison: 2 days earlier RESULT: Lines, tubes, and devices: Left chest pacemaker with leads over right atrium and right ventricle. Lungs and pleura: Elevation/eventration right hemidiaphragm with small bilateral effusions and scattered opacities probably atelectasis. No pneumothorax. Cardiomediastinal silhouette: Cardiac silhouette within normal limits. Other: Degenerative changes of the thoracic spine. IMPRESSION: See Result. Business Writer: CAROL Transcribe Date/Time: Nov 05 2023 11:21A Dictated by : CAROLA CHAHAL MD This examination was interpreted and the report reviewed and electronically signed by: CAROLA CHAHAL MD on Nov 05 2023 11:21AM EST [id number] Normal [facility] BRIEF OP NOTon 11-04-2023 BRIEF OP NOT HNO ID: [id number] Author: PHOENIX HARRISON MD Service: Cardiovascular Medicine Author Type: Fellow Type: Brief Op Note Filed: 11/04/2023 17:06 Note Text: [facility] ELECTROPHYSIOLOGY BRIEF PROCEDURE NOTE Kimberly Everett [id number] 72 year old female with PMHx chronic diastolic heart failure, mild CAD, chronic angina on imdur, HTN, remote PE (2008 prior coumadin), KATELYN not on CPAP, COPD on home O2, former tobacco abuse, GERD, multiple abdominal surgeries, syrinx of cervical spine, anxiety, depression and chronic fatigue admitted with infrahisian 2:1 AVB with LBBB now presenting for pacemaker implantation. EP Staff: Garland Lockett MD EP Fellow: Phoenix Harrison MD Procedure: Left sided pacemaker implantation with LBBAP Date: November 04, 2023 Start Time: 1447 End Time: 1650 Outcome: Successful Pre-op diagnosis: 2:1 AVB; High grade AVB Post-op diagnosis: Same Access: - Left axillary vein x 2 - Left pre-pectoral device pocket Specimens: None Complications: None Plan: - 4 hours bedrest. - Post-procedure chest radiograph and device check ordered. - Avoid heparin and enoxaparin for the next 48-72 hours due to risk of pocket hematoma. - Please include wound care and activity restriction instructions as below in discharge paperwork. - Rest of care as per EP inpatient service. Full report will follow in [facility]. [Chart > Cardiac] Phoenix Harrison MD Cardiac Electrophysiology Fellow, PGY-7 [id number] For Questions/Orders 5PM - 8AM or Weekends (AFTER HOURS) please page: On-call State Inspector: [id number] Device Wound Care: 1. Keep Pacemaker wound clean and dry. 2. Avoid getting the incision site wet for the next week. You can take showers after one week but avoid scrubbing the incision site. 3. Do not submerge the incision site under water. No bathing or swimming for 6 weeks. 4. Do not remove steri-strips for the next 3 weeks. If they fall off before 3 weeks, there is no need for concern. You do not need to keep the wound covered with a bandage. 5. Do not use creams or ointments on the wound site. 6. Inspect the wound area daily to make sure it is healing. Please call your electrophysiology doctor if you notice any signs of infection (fevers, chills, redness, warmth, swelling, increased tenderness or any fluid discharge from the wound). Device Activity: 1. Relax on your first day at home. Walking is one of the easiest ways to speed your recovery. You can return to your normal activities on your second day at home as long as you avoid the activities listed below. 2. Avoid lifting anything heavier than 10 pounds with your left arm for 6 weeks. 3. Do not lift your left arm over shoulder level for 6 weeks. 4. Avoid any strenuous pushing or pulling objects with the left arm for 6 weeks. Our device clinic will contact you to arrange follow-up appointment in six weeks for wound check and device interrogation. Call [phone] if you have not heard from us, or if you wish to re-schedule your appointment, or for any concerns, questions or problems that arise in the meantime. If you have any questions, do not hesitate to call. Our nurses are available at [phone], Wednesday through Wednesday 7am - 7 pm EST. For urgent issues after hours, you will be connected to a healthcare provider who will help you. If you are having a medical emergency call 911. Normal [facility] Basic metabolic 2000 panelon 11-04-2023 Anion gap [Moles/Vol] 13 mmol/L Normal 9-18 [facility] Comment on above: Order Comment: Speci men Type: URINE SPECIMEN Ordering Facility: [facility] Address: [address] [place] [address] Performed By: #### U A #### [facility] CLIA [id number] [address] [place] [address] [place] Calcium [Mass/Vol] 9.7 mg/dL Normal 8.5-10.2 [facility] Comment on above: Order Comment: Speci men Type: URINE SPECIMEN Ordering Facility: [facility] Address: [address] [place] [address] Performed By: #### U A #### [facility] CLIA [id number] [address] [place] [address] [place] Chloride [Moles/Vol] 105 mmol/L Normal 97-105 [facility] Comment on above: Order Comment: Speci men Type: URINE SPECIMEN Ordering Facility: [facility] Address: [address] [place] [address] Performed By: #### U A #### [facility] CLIA [id number] [address] [place] [address] [place] CO2 [Moles/Vol] 21 mmol/L Low 22-30 [facility] Comment on above: Order Comment: Speci men Type: URINE SPECIMEN Ordering Facility: [facility] Address: [address] [place] [address] Performed By: #### U A #### [facility] CLIA [id number] [address] [place] [address] [place] Creatinine [Mass/Vol] 0.92 mg/dL Normal 0.58-0.96 [facility] Comment on above: Order Comment: Speci men Type: URINE SPECIMEN Ordering Facility: [facility] Address: [address] [place] [address] Performed By: #### U A #### [facility] CLIA [id number] [address] [place] [address] [place] Creatinine and Glomerular filtration rate.predicted panel (S/P/Bld) 67 mL/min/1.73m??? Normal >=60 [facility] Comment on above: Order Comment: Nicol colin Type: URINE SPECIMEN Ordering Facility: [facility] Address: [address] [place] [address] Result Comment: Wendy mated Glomerular Filtration Rate (eGFR) is calculated using the 2020 CKD-EPI creatinine equation. This equation utilizes serum creatinine, sex, and age as parameters. The creatinine assay has traceable calibration to isotope dilution-mass spectrometry. Refer to KDIGO guidelines for clinical interpretation. In patients with unstable renal function, e.g. those with acute kidney injury, the eGFR may not accurately reflect actual GFR. Performed By: #### U A #### [facility] CLIA [id number] [address] [place] [address] [place] Glucose [Mass/Vol] 115 mg/dL High 74-99 [facility] Comment on above: Order Comment: Nicol colin Type: URINE SPECIMEN Ordering Facility: [facility] Address: [address] [place] [address] Result Comment: The [place] Diabetes [employer] (ADA) provides guidance for cutoff values for fasting glucose and random glucose. The ADA defines fasting as no caloric intake for at least 8 hours. Fasting plasma glucose results between 100 to 125 mg/dL indicate increased risk for diabetes (prediabetes). Fasting plasma glucose results greater than or equal to 126 mg/dL meet the criteria for diagnosis of diabetes. In the absence of unequivocal hyperglycemia, results should be confirmed by repeat testing. In a patient with classic symptoms of hyperglycemia or hyperglycemic crisis, random plasma glucose results greater than or equal to 200 mg/dL meet the criteria for diagnosis of diabetes. Reference: Standards of Medical Care in Diabetes 2016, [place] [employer] Association. Diabetes Care. 2016.39(Suppl 1). Performed By: #### U A #### [facility] CLIA [id number] [address] [place] [address] [place] Potassium [Moles/Vol] 4.4 mmol/L Normal 3.7-5.1 [facility] Comment on above: Order Comment: Speci men Type: URINE SPECIMEN Ordering Facility: [facility] Address: [address] [place] [address] Performed By: #### U A #### [facility] CLIA [id number] [address] [place] [address] [place] Sodium [Moles/Vol] 139 mmol/L Normal 136-144 [facility] Comment on above: Order Comment: Speci men Type: URINE SPECIMEN Ordering Facility: [facility] Address: [address] [place] [address] Performed By: #### U A #### [facility] CLIA [id number] [address] [place] [address] [place] Urea nitrogen [Mass/Vol] 26 mg/dL High 7-21 [facility] Comment on above: Order Comment: Speci men Type: URINE SPECIMEN Ordering Facility: [facility] Address: [address] [place] [address] Performed By: #### U A #### [facility] CLIA [id number] [address] [place] [address] [place] CBC panel Auto (Bld)on 11-03 Erythrocyte distribution width (RBC) [Ratio] 13.2 % Normal 11.5-15.0 [facility] Comment on above: Order Comment: Speci men Type: URINE SPECIMEN Ordering Facility: [facility] Address: [address] [place] [address] Performed By: #### U A #### [facility] CLIA [id number] [address] [place] [address] [place] Hematocrit (Bld) [Volume fraction] 39.1 % Normal 36.0-46.0 [facility] Comment on above: Order Comment: Speci men Type: URINE SPECIMEN Ordering Facility: [facility] Address: [address] [place] [address] Performed By: #### U A #### [facility] CLIA [id number] [address] [place] [address] [place] Hemoglobin (Bld) [Mass/Vol] 13.2 g/dL Normal 11.5-15.5 [facility] Comment on above: Order Comment: Speci men Type: URINE SPECIMEN Ordering Facility: [facility] Address: [address] [place] [address] Performed By: #### U A #### [facility] CLIA [id number] [address] [place] [address] [place] MCH (RBC) [Entitic mass] 30.6 pg Normal 26.0-34.0 [facility] Comment on above: Order Comment: Speci men Type: URINE SPECIMEN Ordering Facility: [facility] Address: [address] [place] [address] Performed By: #### U A #### [facility] CLIA [id number] [address] [place] [address] [place] MCHC (RBC) [Mass/Vol] 33.8 g/dL Normal 30.5-36.0 [facility] Comment on above: Order Comment: Speci men Type: URINE SPECIMEN Ordering Facility: [facility] Address: [address] [place] [address] Performed By: #### U A #### [facility] CLIA [id number] [address] [place] [address] [place] MCV (RBC) [Entitic vol] 90.5 fL Normal 80.0-100.0 [facility] Comment on above: Order Comment: Speci men Type: URINE SPECIMEN Ordering Facility: [facility] Address: [address] [place] [address] Performed By: #### U A #### [facility] CLIA [id number] [address] [place] [address] [place] Nucleated RBC (Bld) [#/Vol] 10*3/uL Normal <0.01 [facility] Comment on above: Order Comment: Speci men Type: URINE SPECIMEN Ordering Facility: [facility] Address: [address] [place] [address] Performed By: #### U A #### [facility] CLIA [id number] [address] [place] [address] [place] Platelet mean volume (Bld) [Entitic vol] 10.4 fL Normal 9.0-12.7 [facility] Comment on above: Order Comment: Speci men Type: URINE SPECIMEN Ordering Facility: [facility] Address: [address] [place] [address] Performed By: #### U A #### [facility] CLIA [id number] [address] [place] [address] [place] Platelets (Bld) [#/Vol] 297 10*3/uL Normal 150-400 [facility] Comment on above: Order Comment: Speci men Type: URINE SPECIMEN Ordering Facility: [facility] Address: [address] [place] [address] Performed By: #### U A #### [facility] CLIA [id number] [address] [place] [address] [place] RBC (Bld) [#/Vol] 4.32 10*6/uL Normal 3.90-5.20 [facility] Comment on above: Order Comment: Speci men Type: URINE SPECIMEN Ordering Facility: [facility] Address: [address] [place] [address] Performed By: #### U A #### [facility] CLIA [id number] [address] [place] [address] [place] WBC (Bld) [#/Vol] 8.85 10*3/uL Normal 3.70-11.00 [facility] Comment on above: Order Comment: Speci men Type: URINE SPECIMEN Ordering Facility: [facility] Address: [address] [place] [address] Performed By: #### U A #### [facility] CLIA [id number] [address] [facility] [place] [place] [address] [place] ECG COMPLETEon 11-04-2023 ECG COMPLETE Ventricular Rate : 7 8 BPM Atrial Rate : 78 BPM P-R Interval : 200 ms QRS Duration : 92 ms Q-T Interval : 408 ms QTC Calculation(Bazett) : 465 ms Calculated P [place] : 50 degrees Calculated R [place] : -19 degrees Calculated T [place] : 7 degrees ATRIAL-SENSED VENTRICULAR-PACED RHYTHM ABNORMAL ECG Confirmed by RAFAELA KNAPP MD (22) on 11/15/2023 7:05:07 PM NAME : KIMBERLY EVERETT PID : [id number] : 1950 Gender : Female Race : ORD : [id number] Procedure Date : Nov 04 2023 22:30:35 Edit Date : Nov 15 2023 19:06:19 Diagnosis: ATRIAL-SENSED VENTRICULAR-PACED RHYTHM ABNORMAL ECG Confirmed by RAFAELA KNAPP MD () on 11/15/2023 7:05:07 PM Test Reason : Arrhythmia Location : 362 : J62 [id number] Overread By : RAFAELA KNAPP MD Edited By : RAFAELA KNAPP MD Referred By : EMMANUELLE TIPTON Acquired by : LESLI WALTERS [facility] HbA1c (Bld)on 11-04-2023 Average glucose Estimated from glycated hemoglobin (Bld) [Mass/Vol] 108 mg/dL Normal [facility] Comment on above: Order Comment: Nicol colin Type: BLOOD SPECIMENOrdering Facility: [facility] Address: [address] [place] [address] Result Comment: eAG: (Estimated average glucose) is a calculated value from HgbA1c and is group sales representative of the average blood glucose level in the last 2-3 month period. Performed By: #### 5 5454-3 ####[facility] [id number] [place] [address] [place] HbA1c (Bld) [Mass fraction] 5.4 % Normal 4.3-5.6 [facility] Comment on above: Order Comment: Nicol colin Type: BLOOD SPECIMENOrdering Facility: [facility] Address: [address] [place], [place] [id number] Result Comment: [place] Diabetes Association guidelines indicate that patients with HgbA1c in the range 5.7-6.4% are at increased risk for development of diabetes, and intervention by lifestyle modification may be beneficial. HgbA1c greater or equal to 6.5% is considered diagnostic of diabetes. Performed By: #### 5 5454-3 ####[facility] [id number] [place] [id number] [facility] Magnesium SerPl-mCncon 11-03 Magnesium [Mass/Vol] 2.1 mg/dL Normal 1.7-2.3 [facility] Comment on above: Order Comment: Speci men Type: BLOOD SPECIMENOrdering Facility: [facility] Address: [address] [place] [address] Performed By: #### 3 016-3, 59232-8, 07497-5 ####[facility] [id number] [address] [place] PT EDon 11-04-2023 PT ED HNO ID: [id number] Author: ELEONORA RAMÍREZ RN Service: Cardiovascular Medicine Author Type: Registered Nurse Type: Patient Education Filed: 11/04/2023 13:58 Note Text: THE FOLLOWING WAS EVALUATED Motivation To Learn: Interested Family/Significant Other Support: Unable to assess - Family not present Cognitive Ability: Alert and oriented Patient Learns Best By: Individual Instruction The Following Influencing Factors Were Barriers To This Education Session: None The Following Physical Limitations Were Barriers To This Education Session: None Instruction Provided To: Patient Procedure: Pacemaker Implant Pre-procedure information reviewed: Patient ID verified Procedure verified Physician verified Explanation of procedure Sedation level during procedure MD medication instructions from EP lab request Travel instructions/restrictions Scheduling information Possible same day discharge versus overnight hospital stay Check out time Family waiting area Physician contact with family after procedure Post Procedure Expectations reviewed: Inpatient hospital stay Post procedure antiarrhythmics and anticoagulation will be discussed with Physician, nurse practitioner or Physician assistant research scientist upon discharge Instructions for transmitting EKG to Monitoring Center 3 month follow up instructions Contact number for information and questions Patient Evaluation: Verbalizes understanding Follow Up Plan: Follow up as directed by MD. Supplemental Material Given: None Instructed By Eleonora Ramírez RN. In Department of CVL801. Normal [facility] PT ED HNO ID: [id number] Author: BILL LOPEZ [facility] Service: Pharmacy Author Type: Pharmacist Type: Patient Education Filed: 11/04/2023 08:16 Note Text: NO HF MEDICATION EDUCATION Patient Name:Osmani Everett Service Date: 11/04/2023 Service Time: 8:15 AM Heart Failure Education Counseling not indicated Other patient admitted to EP service for bradycardia not for HF Current Inpatient Medications: Current Facility-Administered Medications Medication Dose Route Frequency acetaminophen 650 mg tab(s) (TYLENOL) 650 mg ORAL q 4 H PRN docusate sodium 100 mg cap(s) (COLACE) 100 mg ORAL BID PRN NaCl 0.9% iv flush bag 20 mL INTRAVENOUS PRN sodium chloride 0.9 % (flush) 2-10 mL (BD POSIFLUSH) 2-10 mL INTRAVENOUS DIRECTED PRN And perflutren lipid microspheres 1.1 mg/mL 1.3 mL injection (DEFINITY) 1.3 mL INTRAVENOUS DIRECTED PRN polyethylene glycol 3350 17 g packet 17 g ORAL DAILY PRN amLODIPine 5 mg tab(s) (NORVASC) 5 mg ORAL DAILY aspirin, enteric coated 81 mg tab(s) 81 mg ORAL DAILY baclofen 15 mg tab(s) 15 mg ORAL BID colestipol 1 g tab(s) (COLESTID) 1 g ORAL DAILY furosemide 40 mg tab(s) (LASIX) 40 mg ORAL DAILY hyoscyamine sublingual 0.125 mg tab(s) (LEVSIN SL) 0.125 mg SUBLINGUAL TID loperamide 2 mg cap(s) (IMODIUM) 2 mg ORAL DAILY magnesium oxide 400 mg tab(s) (MAG-OX) 400 mg ORAL DAILY pantoprazole DR 40 mg tab(s) (PROTONIX) 40 mg ORAL DAILY traZODone 50 mg tab(s) (DESYREL) 50 mg ORAL AT BEDTIME albuterol HFA 90 mcg/actuation 2 Puff (PROVENTIL HFA, VENTOLIN HFA) 2 Puff INHALATION q 4 H PRN baclofen 10 mg tab(s) 10 mg ORAL DAILY (1 PM) mometasone 220 mcg/ actuation (14) 2 Puff inhaler (ASMANEX) 2 Puff INHALATION BID And umeclidinium 62.5 mcg - vilanterol 25 mcg inhaler (ANORO ELLIPTA) 1 Inhalation INHALATION DAILY hydrALAZINE 25 mg tab(s) (APRESOLINE) 25 mg ORAL q 8 H PRN polyvinyl alcohol-povidone 1.4-0.6 % 1 Drop (REFRESH) 1 Drop BOTH EYES TID isosorbide mononitrate ER 60 mg tab(s) (IMDUR) 60 mg ORAL DAILY losartan 100 mg tab(s) (COZAAR) 100 mg ORAL DAILY FURTHER RECOMMENDATIONS (IF ANY): none SIGNATURE: Bill Lopez [facility] PAGER: [phone] Normal [facility] PT panel Coag (PPP)on 2023 INR Coag (PPP) [Relative time] 1.0 {INR} Normal 0.9-1.3 [facility] Comment on above: Order Comment: Speci men Type: BLOOD SPECIMENOrdering Facility: [facility] Address: [address] [place] [address] Result Comment: Yee min K Antagonist (VKA) Therapeutic Range: INR 2 to 3 (Target INR of 2.5) Note: For patients treated with VKA drugs, such as warfarin, the [place] [employer] 2012 Guideline recommends a therapeutic INR range of 2 to 3 (target INR of 2.5). This recommendation includes high-risk patients with antiphospholipid syndrome with previous arterial or venous thromboembolism, current-generation mechanical or bioprosthetic aortic heart valve replacement. Note: Patients with mechanical aortic valve replacement and additional risk factors for thromboembolic events (atrial fibrillation, previous thromboembolism, LV dysfunction, hypercoagulable conditions) or an older generation mechanical AVR (i.e., ball in-Cage) or any mechanical MVR should have a INR therapeutic range of 2.5 to 3.5 (target INR of 3). Nikolay GH, et al. Chest 2012, 141:7S-47S Katt PARRA et al. [facility] 2017, 70: 252-289 Performed By: #### 1 4979-9, 85143-7 ####[facility] LABCLIA [id number] [place] [address] [place] PT Coag (PPP) [Time] 10.9 s Normal 9.7-13.0 [facility] Comment on above: Order Comment: Speci men Type: BLOOD SPECIMENOrdering Facility: [facility] Address: [address] [place] [address] Performed By: #### 1 4979-9, 27261-7 ####[facility] LABCLIA [id number] [place] [address] [place] TSH SerPl-aCncon 11-04-2023 TSH Qn 3.300 m[IU]/L Normal 0.270-4.20 0 [facility] Comment on above: Order Comment: Speci men Type: BLOOD SPECIMENOrdering Facility: [facility] Address: [address] [place] [address] Performed By: #### 3 016-3, 81291-8, 75186-1 ####[facility] LABCLIA [id number] [place] [address] [place] US [facility] n 11-04-2023 [facility] Non-Invasive Vascular Laboratory [facility] Extremity Venous Duplex Bilateral/Complete Date of service/time: 11/04/2023 10:30:27 AM Name: MRS. KIMBERLY EVERETT Date of : 1950 Age: 72 years Gender: F Clinical Indication Lower extremity pain. TECHNIQUE -------- A venous duplex ultrasound examination was performed, including grayscale imaging with compression maneuvers and color Doppler and spectral Doppler examination with augmentation maneuvers and response to respiration of the below mentioned veins. FINDINGS -------- RIGHT SIDE Distal external iliac vein Doppler: normal flow. Compression: normal. Common femoral vein Doppler: normal flow. Compression: normal. Femoral vein Doppler: normal flow. Compression: normal. Popliteal vein Doppler: normal flow. Compression: normal. Posterior tibial veins Compression: normal. Peroneal veins Compression: normal. Great saphenous vein Compression: normal. Small saphenous vein Compression: normal. LEFT SIDE Distal external iliac vein Doppler: normal flow. Compression: normal. Common femoral vein Doppler: normal flow. Compression: normal. Femoral vein Doppler: normal flow. Compression: normal. Popliteal vein Doppler: normal flow. Compression: normal. Posterior tibial veins Compression: normal. Peroneal veins Compression: normal. Great saphenous vein Compression: normal. Small saphenous vein Compression: normal. IMPRESSION RIGHT SIDE - DEEP VEINS Negative for acute deep vein thrombosis. Only segments visualized of the posterior tibial veins and peroneal veins. LEFT SIDE - DEEP VEINS Negative for acute deep vein thrombosis. Only segments visualized of the posterior tibial veins and peroneal veins. Technologist: Dahlia Reyes T Ordering physician: BRITTNEY MARTELL Interpreting physician: GIO Graham DO Final CC [facility] Image : [id number] See Link below for Image Normal [facility] aPTT PPPon 11-04-2023 aPTT Coag (PPP) [Time] 30.9 s Normal 23.0-32.4 Cl [facility] Comment on above: Order Comment: Speci men Type: BLOOD SPECIMENOrdering Facility: [facility] Address: [address] [place] [address] Performed By: #### 1 4979-9, 26300-1 ####[facility] LABCLIA [id number] [facility] [id number] [address] [place] B. burgdorferi IgG and IgM p galina (S)on 11-03-2023 B. burgdorferi IgG+IgM Qn (S) Negative Normal Negative [facility] Comment on above: Order Comment: Speci men Type: URINE SPECIMEN Ordering Facility: [facility] Address: [address] [place] [address] Result Comment: Rece nt infection with B. burgdorferi sensu lato cannot be excluded if the specimen collected within four weeks after the onset of signs and symptoms or within six weeks after a known tick exposure. Clinical and epidemiological correlation is required. Performed By: #### U A #### [facility] LAB CLIA [id number] [address] [place] [address] [place] CBC W Auto Differential pane l (Bld)on 11-03-2023 Basophils (Bld) [#/Vol] 0.07 10*3/uL Normal <0.11 [facility] Comment on above: Order Comment: Speci men Type: BLOOD SPECIMENOrdering Facility: [facility] Address: [address] [place] [address] Performed By: #### 5 7021-8 ####[facility] LABCLIA [id number] [place] [address] [place] Basophils/100 WBC (Bld) 0.8 % Normal [facility] Comment on above: Order Comment: Speci men Type: BLOOD SPECIMENOrdering Facility: [facility] Address: [address] [place] [address] Performed By: #### 5 7021-8 ####[facility] LABCLIA [id number] [place] [address] [place] Differential cell count method Nom (Bld) Auto Normal [facility] Comment on above: Order Comment: Speci men Type: BLOOD SPECIMENOrdering Facility: [facility] Address: [address] [place] [address] Performed By: #### 5 7021-8 ####[facility] LABCLIA [id number] [place] [address] [place] Eosinophils (Bld) [#/Vol] 0.08 10*3/uL Normal <0.46 [facility] Comment on above: Order Comment: Speci men Type: BLOOD SPECIMENOrdering Facility: [facility] Address: [address] [place] [address] Performed By: #### 5 7021-8 ####[facility] LABCLIA [id number] [place] [address] [place] Eosinophils/100 WBC (Bld) 0.9 % Normal [facility] Comment on above: Order Comment: Speci men Type: BLOOD SPECIMENOrdering Facility: [facility] Address: [address] [place] [address] Performed By: #### 5 7021-8 ####[facility] LABCLIA [id number] [place] [address] [place] Erythrocyte distribution width (RBC) [Ratio] 13.2 % Normal 11.5-15.0 [facility] Comment on above: Order Comment: Speci men Type: BLOOD SPECIMENOrdering Facility: [facility] Address: [address] [place] [address] Performed By: #### 5 7021-8 ####[facility] LABIA [id number] [place] [address] [place] Hematocrit (Bld) [Volume fraction] 39.5 % Normal 36.0-46.0 [facility] Comment on above: Order Comment: Speci men Type: BLOOD SPECIMENOrdering Facility: [facility] Address: [address] [place] [address] Performed By: #### 5 7021-8 ####[facility] LABIA [id number] [place] [address] [place] Hemoglobin (Bld) [Mass/Vol] 13.2 g/dL Normal 11.5-15.5 [facility] Comment on above: Order Comment: Speci men Type: BLOOD SPECIMENOrdering Facility: [facility] Address: [address] [place] [address] Performed By: #### 5 7021-8 ####[facility] LABIA [id number] [place] [address] [place] Immature granulocytes (Bld) [#/Vol] 0.09 10*3/uL Normal <0.10 [facility] Comment on above: Order Comment: Speci men Type: BLOOD SPECIMENOrdering Facility: [facility] Address: [address] [place] [address] Performed By: #### 5 7021-8 ####[facility] LABCLIA [id number] [place] [address] [place] Immature granulocytes/100 WBC (Bld) 1.1 % Normal [facility] Comment on above: Order Comment: Speci men Type: BLOOD SPECIMENOrdering Facility: [facility] Address: [address] [place] [address] Performed By: #### 5 7021-8 ####[facility] LABCLIA [id number] [place] [address] [place] Lymphocytes (Bld) [#/Vol] 1.80 10*3/uL Normal 1.00-4.00 [facility] Comment on above: Order Comment: Speci men Type: BLOOD SPECIMENOrdering Facility: [facility] Address: [address] [place] [address] Performed By: #### 5 7021-8 ####[facility] LABCLIA [id number] [place] [address] [place] Lymphocytes/100 WBC (Bld) 21.2 % Normal [facility] Comment on above: Order Comment: Speci men Type: BLOOD SPECIMENOrdering Facility: [facility] Address: [address] [place] [address] Performed By: #### 5 7021-8 ####[facility] LABCLIA [id number] [place] [address] [place] MCH (RBC) [Entitic mass] 30.7 pg Normal 26.0-34.0 [facility] Comment on above: Order Comment: Speci men Type: BLOOD SPECIMENOrdering Facility: [facility] Address: [address] [place] [address] Performed By: #### 5 7021-8 ####[facility] LABCLIA [id number] [place] [address] [place] MCHC (RBC) [Mass/Vol] 33.4 g/dL Normal 30.5-36.0 [facility] Comment on above: Order Comment: Speci men Type: BLOOD SPECIMENOrdering Facility: [facility] Address: [address] [place] [address] Performed By: #### 5 7021-8 ####[facility] LABIA [id number] [place] [address] [place] MCV (RBC) [Entitic vol] 91.9 fL Normal 80.0-100.0 [facility] Comment on above: Order Comment: Speci men Type: BLOOD SPECIMENOrdering Facility: [facility] Address: [address] [place] [address] Performed By: #### 5 7021-8 ####[facility] LABIA [id number] [place] [address] [place] Monocytes (Bld) [#/Vol] 0.51 10*3/uL Normal <0.87 [facility] Comment on above: Order Comment: Speci men Type: BLOOD SPECIMENOrdering Facility: [facility] Address: [address] [place] [address] Performed By: #### 5 7021-8 ####[facility] LABCLIA [id number] [place] [address] [place] Monocytes/100 WBC (Bld) 6.0 % Normal [facility] Comment on above: Order Comment: Speci men Type: BLOOD SPECIMENOrdering Facility: [facility] Address: [address] [place] [address] Performed By: #### 5 7021-8 ####[facility] LABIA [id number] [address] [id number] [address] [place] Neutrophils (Bld) [#/Vol] 5.94 10*3/uL Normal 1.45-7.50 [facility] Comment on above: Order Comment: Speci men Type: BLOOD SPECIMENOrdering Facility: [facility] Address: [address] [place] [address] Performed By: #### 5 7021-8 ####[facility] LABCLIA [id number] [place] [address] [place] Neutrophils/100 WBC (Bld) 70.0 % Normal [facility] Comment on above: Order Comment: Speci men Type: BLOOD SPECIMENOrdering Facility: [facility] Address: [address] [place] [address] Performed By: #### 5 7021-8 ####[facility] LABCLIA [id number] [place] [address] [place] Nucleated RBC (Bld) [#/Vol] 10*3/uL Normal <0.01 [facility] Comment on above: Order Comment: Speci men Type: BLOOD SPECIMENOrdering Facility: [facility] Address: [address] [place] [address] Performed By: #### 5 7021-8 ####[facility] LABCLIA [id number] [place] [address] [place] Nucleated RBC/100 WBC (Bld) [Ratio] 0.0 /100 WBC Normal [facility] Comment on above: Order Comment: Speci men Type: BLOOD SPECIMENOrdering Facility: [facility] Address: [address] [place] [address] Performed By: #### 5 7021-8 ####[facility] LABCLIA [id number] [place] [address] [place] Platelet mean volume (Bld) [Entitic vol] 10.8 fL Normal 9.0-12.7 [facility] Comment on above: Order Comment: Speci men Type: BLOOD SPECIMENOrdering Facility: [facility] Address: [address] [place] [address] Performed By: #### 5 7021-8 ####[facility] LABIA [id number] [place] [address] [place] Platelets (Bld) [#/Vol] 281 10*3/uL Normal 150-400 [facility] Comment on above: Order Comment: Speci men Type: BLOOD SPECIMENOrdering Facility: [facility] Address: [address] [place] [address] Performed By: #### 5 7021-8 ####[facility] LABIA [id number] [place] [address] [place] RBC (Bld) [#/Vol] 4.30 10*6/uL Normal 3.90-5.20 [facility] Comment on above: Order Comment: Speci men Type: BLOOD SPECIMENOrdering Facility: [facility] Address: [address] [place] [address] Performed By: #### 5 7021-8 ####[facility] LABIA [id number] [place] [address] [place] WBC (Bld) [#/Vol] 8.49 10*3/uL Normal 3.70-11.00 [facility] Comment on above: Order Comment: Speci men Type: BLOOD SPECIMENOrdering Facility: [facility] Address: [address] [place] [address] Performed By: #### 5 7021-8 ####[facility] LABIA [id number] [place] [id number] [place] Comprehensive metabolic 2000 panelon 11-03-2023 Albumin [Mass/Vol] 4.2 g/dL Normal 3.9-4.9 [facility] Comment on above: Order Comment: Speci men Type: URINE SPECIMEN Ordering Facility: [facility] Address: [address] [place] [address] Performed By: #### U A #### [facility] CLIA [id number] [address] [place] [address] [place] ALP [Catalytic activity/Vol] 65 U/L Normal 34-123 [facility] Comment on above: Order Comment: Speci men Type: URINE SPECIMEN Ordering Facility: [facility] Address: [address] [place] [address] Performed By: #### U A #### [facility] CLIA [id number] [address] [place] [address] [place] ALT [Catalytic activity/Vol] 10 U/L Normal 7-38 [facility] Comment on above: Order Comment: Speci men Type: URINE SPECIMEN Ordering Facility: [facility] Address: [address] [place] [address] Performed By: #### U A #### [facility] CLIA [id number] [address] [place] [address] [place] Anion gap [Moles/Vol] 14 mmol/L Normal 9-18 [facility] Comment on above: Order Comment: Speci men Type: URINE SPECIMEN Ordering Facility: [facility] Address: [address] [place] [address] Performed By: #### U A #### [facility] CLIA [id number] [address] [place] [address] [place] AST [Catalytic activity/Vol] 23 U/L Normal 13-35 [facility] Comment on above: Order Comment: Speci men Type: URINE SPECIMEN Ordering Facility: [facility] Address: [address] [place] [address] Result Comment: Resu lts may be falsely increased due to interference from hemolysis. Suggest reorder as clinically indicated. Performed By: #### U A #### [facility] CLIA [id number] [address] [place] [address] [place] Bilirubin [Mass/Vol] 0.4 mg/dL Normal 0.2-1.3 [facility] Comment on above: Order Comment: Speci men Type: URINE SPECIMEN Ordering Facility: [facility] Address: [address] [place] [address] Performed By: #### U A #### [facility] CLIA [id number] [address] [place] [address] [place] Calcium [Mass/Vol] 9.9 mg/dL Normal 8.5-10.2 [facility] Comment on above: Order Comment: Speci men Type: URINE SPECIMEN Ordering Facility: [facility] Address: [address] [place] [address] Performed By: #### U A #### [facility] CLIA [id number] [address] [place] [address] [place] Chloride [Moles/Vol] 106 mmol/L High 97-105 [facility] Comment on above: Order Comment: Speci men Type: URINE SPECIMEN Ordering Facility: [facility] Address: [address] [place] [address] Performed By: #### U A #### [facility] CLIA [id number] [address] [place] [address] [place] CO2 [Moles/Vol] 21 mmol/L Low 22-30 [facility] Comment on above: Order Comment: Speci men Type: URINE SPECIMEN Ordering Facility: [facility] Address: [address] [place] [address] Performed By: #### U A #### [facility] CLIA [id number] [address] [place] [address] [place] Creatinine [Mass/Vol] 0.78 mg/dL Normal 0.58-0.96 [facility] Comment on above: Order Comment: Speci men Type: URINE SPECIMEN Ordering Facility: [facility] Address: [address] [place] [address] Performed By: #### U A #### [facility] CLIA [id number] [address] [place] [address] [place] Creatinine and Glomerular filtration rate.predicted panel (S/P/Bld) 81 mL/min/1.73m??? Normal >=60 [facility] Comment on above: Order Comment: Nicol colin Type: URINE SPECIMEN Ordering Facility: [facility] Address: [address] [place] [address] Result Comment: Wendy mated Glomerular Filtration Rate (eGFR) is calculated using the 2020 CKD-EPI creatinine equation. This equation utilizes serum creatinine, sex, and age as parameters. The creatinine assay has traceable calibration to isotope dilution-mass spectrometry. Refer to KDIGO guidelines for clinical interpretation. In patients with unstable renal function, e.g. those with acute kidney injury, the eGFR may not accurately reflect actual GFR. Performed By: #### U A #### [facility] CLIA [id number] [address] [place] [address] [place] Glucose [Mass/Vol] 121 mg/dL High 74-99 [facility] Comment on above: Order Comment: Speci men Type: URINE SPECIMEN Ordering Facility: [facility] Address: [address] [place] [address] Result Comment: The [place] [employer] (ADA) provides guidance for cutoff values for fasting glucose and random glucose. The ADA defines fasting as no caloric intake for at least 8 hours. Fasting plasma glucose results between 100 to 125 mg/dL indicate increased risk for diabetes (prediabetes). Fasting plasma glucose results greater than or equal to 126 mg/dL meet the criteria for diagnosis of diabetes. In the absence of unequivocal hyperglycemia, results should be confirmed by repeat testing. In a patient with classic symptoms of hyperglycemia or hyperglycemic crisis, random plasma glucose results greater than or equal to 200 mg/dL meet the criteria for diagnosis of diabetes. Reference: Standards of Medical Care in Diabetes 2016, [place] [employer]. Diabetes Care. 2016.39(Suppl 1). Performed By: #### U A #### [facility] CLIA [id number] [address] [place] [address] [place] Potassium [Moles/Vol] 4.2 mmol/L Normal 3.7-5.1 [facility] Comment on above: Order Comment: Speci men Type: URINE SPECIMEN Ordering Facility: [facility] Address: [address] [place] [address] Performed By: #### U A #### [facility] CLIA [id number] [address] [place] [address] [place] Protein [Mass/Vol] 6.9 g/dL Normal 6.3-8.0 [facility] Comment on above: Order Comment: Speci men Type: URINE SPECIMEN Ordering Facility: [facility] Address: [address] [place] [address] Performed By: #### U A #### [facility] CLIA [id number] [address] [place] [address] [place] Sodium [Moles/Vol] 141 mmol/L Normal 136-144 [facility] Comment on above: Order Comment: Speci men Type: URINE SPECIMEN Ordering Facility: [facility] Address: [address] [place] [address] Performed By: #### U A #### [facility] CLIA [id number] [address] [place] [address] [place] Urea nitrogen [Mass/Vol] 19 mg/dL Normal 7-21 [facility] Comment on above: Order Comment: Speci men Type: URINE SPECIMEN Ordering Facility: [facility] Address: [address] [place] [address] Performed By: #### U A #### [facility] CLIA [id number] [address] [place] [address] [place] ECG COMPLETEon 11-03-2023 ECG COMPLETE Ventricular Rate : 1 36 BPM Atrial Rate : 150 BPM P-R Interval : 296 ms QRS Duration : 16 ms Q-T Interval : 394 ms QTC Calculation(Bazett) : 592 ms Calculated R [place] : 0 degrees Calculated T [place] : 210 degrees SINUS RHYTHM WITH 2:1 A-V CONDUCTION INDETERMINATE AXIS ST & INFEROLATERAL T WAVE ABNORMALITY ABNORMAL ECG Confirmed by HUBERT DEUTSCH MD ([id number]) on 11/30/2023 11:03:41 AM NAME : KIMBERLY EVERETT PID : [id number] : 1950 Gender : Female Race : ORD : [id number] Procedure Date : Nov 03 2023 12:20:17 Edit Date : Nov 30 2023 11:03:43 Diagnosis: SINUS RHYTHM WITH 2:1 A-V CONDUCTION INDETERMINATE AXIS ST & INFEROLATERAL T WAVE ABNORMALITY ABNORMAL ECG Confirmed by HUBERT DEUTSCH MD ([id number]) on 11/30/2023 11:03:41 AM Test Reason : Arrhythmia Location : 462 : J62NS J062- Overread By : HUBERT DEUTSCH MD Edited By : HUBERT DEUTSCH MD Referred By : EMMANUELLE TIPTON Acquired by : [id number], Normal [facility] [id number] 11-03-2023 ECG01 Ventricular Rate : 5 0 BPM Atrial Rate : 98 BPM P-R Interval : 180 ms QRS Duration : 92 ms Q-T Interval : 552 ms QTC Calculation(Bazett) : 503 ms Calculated P [place] : 60 degrees Calculated R [place] : -11 degrees Calculated T [place] : 22 degrees SINUS RHYTHM 2ND DEGREE AV BLOCK WITH 2:1 A-V CONDUCTION LOW VOLTAGE QRS, CONSIDER PULMONARY DISEASE, PERICARDIAL EFFUSION, OR NORMAL VARIANT PROLONGED QT INTERVAL OR TU FUSION, CONSIDER HYPOKALEMIA ABNORMAL ECG Confirmed by ANDREA RENEE MD ([id number]) on 11/13/2023 9:24:45 PM NAME : MOLLY EVERETTH PID : [id number] : 1950 Gender : Female Race : ORD : Procedure Date : Nov 03 2023 21:49:35 Edit Date : Nov 13 2023 21:24:46 Diagnosis: SINUS RHYTHM 2ND DEGREE AV BLOCK WITH 2:1 A-V CONDUCTION LOW VOLTAGE QRS, CONSIDER PULMONARY DISEASE, PERICARDIAL EFFUSION, OR NORMAL VARIANT PROLONGED QT INTERVAL OR TU FUSION, CONSIDER HYPOKALEMIA ABNORMAL ECG Confirmed by ANDREA RENEE MD ([id number]) on 11/13/2023 9:24:45 PM Test Reason : Location : 462 : J62NS J062- Overread By : ANDREA RENEE MD Edited By : ANDREA RENEE MD Referred By : EMMANUELLE TIPTON Acquired by : [id number], Normal [facility] ECHOon 11-03-2023 Echocardiography Echocardiography Rep ort: Transthoracic Echo [facility] Bedside Date of service: 11/03/2023 3:06:42 PM [employer] Ordering physician: BRITTNEY MARTELL Indication: Abnormal ECG Technologist: Sherly Rivero [facility] Interpreting physician: Bon Shipman MD PATIENT: Name: MRS. KIMBERLY EVERETT : 1950 Age: 72 years Gender: F History of hypertension and dyslipidemia. Primary rhythm: sinus. Secondary rhythm: AV Block. Height: 155.60 cm BSA: 1.94 m Weight: 87.09 kg BMI: 36.0 kg/m Heart rate 45 bpm Blood pressure 198/84 mmHg Technically difficult exam due to body habitus and suboptimal positioning. Color Doppler was utilized to interrogate the cardiac valves assessed and spectral Doppler was utilized to determine the flow velocities and pressure gradients reported in this exam. MEASUREMENTS: Value Indexed Normal Max aortic dimension 2.8 cm Ao < 3.8 Left atrial volume 33 ml (biplane A-L) 17 ml/m Gris <= 34 LV ID (diastole) 3.8 cm (2D) 1.96 cm/m LV ID (systole) 2.4 cm (2D) 1.21 cm/m IVS, leaflet tips 1.1 cm (2D) Posterior wall thickness 0.8 cm (2D) Left ventricular mass 111 g (2D) 57 g/m Ejection Fraction 70 % (visual est.) EF > 54 FINDINGS: LEFT VENTRICLE The left ventricle is normal in size. Left ventricular systolic function is normal. Grade I left ventricular diastolic dysfunction. Mitral annular lateral E/e': 10.1. Mitral annular septal E/e': 12.8. Wall Motion: All scored segments are normal. RIGHT VENTRICLE The right ventricle is normal in size. Right ventricular systolic function is normal globally. RV systolic tissue Doppler velocity is 13.0 cm/s. Tricuspid annular displacement is 2.3 cm. Estimated right ventricular systolic pressure is 33 mmHg plus right atrial pressure. Estimated right atrial pressure is not included as the IVC was not seen. LEFT ATRIUM The left atrial cavity is normal in size. RIGHT ATRIUM The right atrial cavity is normal in size. MITRAL VALVE There is moderate mitral annular calcification observed posterior. There is trace (trace - 1+) mitral valve regurgitation. The pressure half time is 53 msec. The peak mitral E/A ratio is 1.31. The average mitral E/e' ratio is 11.4. The mitral flow deceleration time is 184 msec. TRICUSPID VALVE There is mild (1+) tricuspid valve regurgitation. There is no thickening. AORTIC VALVE There is no aortic valve regurgitation. Tricuspid aortic valve. There is no thickening. The peak gradient is 14 mmHg (peak velocity = 184.0 cm/s). The LVOT diameter is 1.6 cm. PULMONIC VALVE There is trace pulmonic valve regurgitation. There is no thickening. AORTA The visualized aorta is normal in size. Measurements - Sinus: 2.7 cm. Sinotubular junction 2.0 cm. Mid ascending aorta 2.8 cm. PULMONARY ARTERIES The pulmonary arteries are unseen or not interrogated. CONCLUSIONS: - Technically difficult exam due to body habitus and suboptimal positioning. - Exam indication: Abnormal ECG - The left ventricle is normal in size. Left ventricular systolic function is normal. EF = 70 5% (visual est.) There is systolic cavity obliteration with a resultant intracavitary gradient - The right ventricle is normal in size. Right ventricular systolic function is normal. - There is MAC, predominantly posteriorly, though without suspected severe mitral stenosis or regurgitation. - Exam was compared with the prior CC echocardiographic exam performed on 10/19/2013. Prior study was remote * * * Final * * * [employer] : [id number] Normal [facility] HISTORY PHYSICALon HISTORY PHYSICAL HNO ID: [id number] Author: GARLAND LOCKETT MD Service: Cardiovascular Medicine Author Type: Physician Type: H&P Filed: 11/03/2023 17:25 Note Text: [facility]ARDI[facility]ULAR [facility]IC[facility] HISTORY AND PHYSICAL Kimberly Everett 1950 [id number] PRIMARY SERVICE: Cardiovascular Medicine: Electrophysiology DATE OF ADMISSION: 11/03/2023 CHIEF COMPLAINT 2nd degree 2:1 AV block, symptomatic bradycardia HISTORY OF PRESENT ILLNESS Kimberly Everett is a 72 year old female with a past medical history of chronic diastolic heart failure, mild CAD, chronic angina on imdur, hypertension, remote PE in 2007 previously on coumadin, KATELYN not on CPAP, COPD on home oxygen, former tobacco abuse, GERD, multiple abdominal surgeries including hernia repairs, bowel resection and cholecystectomy, syrinx of cervical spine, anxiety, depression and chronic fatigue. Patient presented to [facility] on 11/01/23 following an office visit with her PCP Dr. Graham at which time she reported a 3 day history of constant chest/back pain radiating to bilateral arms associated with exertional dyspnea, weakness, and dizziness. EKG in the ED showed 2:1 AV block with LBBB with a heart rate 48 bpm. Subsequent EKGs did not show LBBB but had persistent 2:1 AV block. She was hypertensive with BP 211/85. Troponin was negative. Permanent pacemaker placement was recommended and patient requested transfer to [facility]. PAST MEDICAL HISTORY: PAST MEDICAL HISTORY Diagnosis Date KANU (acute kidney injury) ([facility]) 12/19/2015 Breech delivery 1975 Required 2 unit transfusion post op Chronic fatigue CMV (cytomegalovirus infection) ([facility]) COPD (chronic obstructive pulmonary disease) ([facility]) 12/04/2013 Hypertension 12/04/2013 Hypothyroid Mononucleosis Preop cardiovascular exam 12/04/2013 Syrinx of spinal cord ([facility]) 2005 C6 through T1. Vertebral hemangioma T5 Vaginal prolapse Ventral hernia 12/04/2013 PAST SURGICAL HISTORY PAST SURGICAL HISTORY Procedure Laterality Date F TOTAL ABDOMINAL HYSTERECTOMY OOPHORECTOMY, PART/TOTAL UNILAT/BILAT PAST SURGICAL HISTORY OF February 2009 Exp. laparotomy, resection TI and right colon for volvulus PAST SURGICAL HISTORY OF February 2008 left breast biopsy - benign FCD PAST SURGICAL HISTORY OF 1972 Umbilical hernia repair PAST SURGICAL HISTORY OF 2009 Repair incisional hernia mesh PAST SURGICAL HISTORY OF 2011 repair recurrent incisional hernia mesh PAST SURGICAL HISTORY OF 2012 cholecystectomy FAMILY HISTORY: FAMILY HISTORY Problem Relation Age of Onset Diabetes Maternal Grandfather Hypertension Father Hypertension Mother Stroke Maternal Grandmother Cancer Mother breast Cancer Paternal Grandmother colon, stomach Cancer Maternal Grandfather bone SOCIAL HISTORY: Social History Tobacco Use Smoking status: Former Packs/day: 1.00 Years: 18.00 Additional pack years: 0.00 Total pack years: 18.00 Types: Cigarettes Quit date: 08/09/2000 Years since quittin.2 Smokeless tobacco: Never Substance Use Topics Alcohol use: No Drug use: No HOME MEDICATIONS-- as reviewed with Patient aspirin, enteric coated (ASPIRIN, ENTERIC COATED) 81 mg EC tabletTake 81 mg by mouth once daily.Disp: Rfl: cyanocobalamin (VITAMIN B-12) 1,000 mcg tabTake 1,000 mcg by mouth once daily.Disp: Rfl: calcium carbonate (CALCIUM 600) 600 mg calcium (1,500 mg) tabTake 600 mg by mouth once daily.Disp: Rfl: amLODIPine (NORVASC) 5 mg tabletTake 5 mg by mouth once daily.Disp: Rfl: losartan (COZAAR) 100 mg tabletTake 100 mg by mouth once daily.Disp: Rfl: isosorbide mononitrate ER (IMDUR) 60 mg 24 hr tabletTake 60 mg by mouth once daily.Disp: Rfl: objmhmpfbnh-yfxdtoncj-gdvr nter (TRELEGY ELLIPTA) 200-62.5-25 mcg inhalation powderInhale 1 Puff as instructed once daily.Disp: Rfl: traZODone (DESYREL) 50 mg tabletTake 50 mg by mouth daily at bedtime.Disp: Rfl: loperamide (ANTI-DIARRHEAL) 2 mg cap(s)Take 2 mg by mouth once daily.Disp: Rfl: hyoscyamine sublingual (LEVSIN SL) 0.125 mgDissolve 0.125 mg under the tongue three times a day.Disp: Rfl: colestipol (COLESTID) 1 gram tabletTake 1 g by mouth once daily.Disp: Rfl: Ipratropium [place] (ATROVENT) 21 mcg (0.03 %) nasal sprayUse 2 Sprays in the nose once daily.Disp: Rfl: pantoprazole DR (PROTONIX) 40 mg tabletTake 40 mg by mouth once daily.Disp: Rfl: magnesium oxide (MAG-OX) 400 mg (241.3 mg magnesium) tabletTake 400 mg by mouth once daily.Disp: Rfl: empagliflozin (JARDIANCE) 10 mg tabletTake 10 mg by mouth daily with breakfast.Disp: Rfl: ALBUTEROL SULFATE (PROAIR HFA INHALATION)Inhale as instructed every 4 hours as needed.Disp: Rfl: MULTIVIT WITH IRON-MINERALS (MULTIVITAMIN AND MINERALS ORAL)Take 1 tablet by mouth once daily.Disp: Rfl: Biotin 10,000 mcg capTake 10,000 mcg by mouth once daily.Disp: Rfl: ascorbic acid, vitamin C, (VITAMIN C) 500 mg tabletTake 500 mg by mouth (more content not included)... Normal [facility] Magnesium SerPl-mCncon 11-02 Magnesium [Mass/Vol] 2.1 mg/dL Normal 1.7-2.3 [facility] Comment on above: Order Comment: Speci men Type: URINE SPECIMEN Ordering Facility: [facility] Address: [address] [place] [address] Performed By: #### U A #### [facility] [place] [id number] [address] [place] [address] [place] NT-proBNP SerPl-ncon 11-02 Natriuretic peptide.B prohormone N-Terminal [Mass/Vol] 1005 pg/mL High <125 [facility] Comment on above: Order Comment: Speci men Type: URINE SPECIMEN Ordering Facility: [facility] Address: [address] [place] [address] Performed By: #### U A #### [facility] [place] [id number] [address] [place] [address] OF [place] NURSING PROGon 11-03-2023 NURSING PROG HNO ID: [id number] Author: AYLIN MEEKS RN Service: Nursing Author Type: Registered Nurse Type: Nursing Progress Note Filed: 11/04/2023 00:39 Note Text: Telemetry showed a 17 second asystolic episode in 2 leads, CMET was activated immediately and nursing staff went to room. Pt was asymptomatic, alert, oriented on assessment. ECG completed. Telemetry in all leads NOT showing asystolic event.Gain increased, continue to monitor Normal [facility] PT panel Coag (PPP)on 2023 INR Coag (PPP) [Relative time] 1.0 {INR} Normal 0.9-1.3 [facility] Comment on above: Order Comment: Speci men Type: URINE SPECIMEN Ordering Facility: [facility] Address: [address] [place] [address] Result Comment: Yee min K Antagonist (VKA) Therapeutic Range: INR 2 to 3 (Target INR of 2.5) Note: For patients treated with VKA drugs, such as warfarin, the [employer] 2012 Guideline recommends a therapeutic INR range of 2 to 3 (target INR of 2.5). This recommendation includes high-risk patients with antiphospholipid syndrome with previous arterial or venous thromboembolism, current-generation mechanical or bioprosthetic aortic heart valve replacement. Note: Patients with mechanical aortic valve replacement and additional risk factors for thromboembolic events (atrial fibrillation, previous thromboembolism, LV dysfunction, hypercoagulable conditions) or an older generation mechanical AVR (i.e., ball in-Cage) or any mechanical MVR should have a INR therapeutic range of 2.5 to 3.5 (target INR of 3). Guyatt GH, et al. Chest 2012, 141:7S-47S Katt RA, et al. [facility] 2017, 70: 252-289 Performed By: #### U A #### [facility] [place] [id number] [address] [place] [address] [place] PT Coag (PPP) [Time] 11.1 s Normal 9.7-13.0 [facility] Comment on above: Order Comment: Speci men Type: URINE SPECIMEN Ordering Facility: [facility] Address: [address] [place] [address] Performed By: #### U A #### [facility] CLIA [id number] [address] [place] [address] [place] THERAPY NTon 11-03-2023 THERAPY NT HNO ID: [id number] Author: TATIANNA BOONE RRT Service: Respiratory Therapy Author Type: Registered Resp Therapist Type: Therapy (PT/OT/Speech/Resp) Filed: 11/03/2023 23:15 Note Text: RESPIRATORY THERAPY PROGRESS NOTE SERVICE DATE: 11/03/2023 SERVICE TIME: 10:49 PM CMET activated to J62-7 for a Heart rate of 37 and a 7 second pause. Patient is not symptomatic and is scheduled for a pacemaker in the morning. Patient will remain on J62 unless she continues to have recurrent issues. SIGNATURE: Tatianna Boone RRT PATIENT NAME: Kimberly Everett DATE: November 03, 2023 TIME: 10:49 11/03/23 2249 RT Rapid Response Is this a Rapid Response? Yes Rapid Response Team CMET $ CPR/Code Blue No RT medication given No Patient intubated No Patient suctioned No Blood Gases Drawn No Vitals/Oxygenation Pulse (!) 37 Resp 20 SpO2 95 % O2 Therapy [place] Liters 1 $Oximetry $Performed Pulse Oximetry Monitoring Continuous PM PAGER/CONTACT #: [phone] Normal [facility] TYPE + SCREENon 11-03-2023 ABO O Normal [facility] Comment on above: Order Comment: Speci men Type: BLOOD SPECIMENOrdering Facility: [facility] Address: [address] [place] [address] Performed By: #### T SCR ####[facility] MAIN BLOOD BANKCLIA [id number] [address] HISTORICAL AB SCR STATUS Negative Normal [facility] Comment on above: Order Comment: Speci men Type: BLOOD SPECIMENOrdering Facility: [facility] Address: [address] [place] [address] Performed By: #### T SCR ####CC MAIN BLOOD BANKCLIA [id number] [place] [address] [place] Rh Nom (Bld) Negative Normal [facility] Comment on above: Order Comment: Speci men Type: BLOOD SPECIMENOrdering Facility: [facility] Address: [address] [place] [address] Performed By: #### T SCR ####CC MAIN BLOOD BANKCLIA [id number] [place] [id number] [place] TYPE AND SCREEN EXPIRATION 11/06/2023 23:59 Normal [facility] Comment on above: Order Comment: Speci men Type: BLOOD SPECIMENOrdering Facility: [facility] Address: [address] [place] [address] Performed By: #### T SCR ####CC MAIN BLOOD BANKCLIA [id number] [place] [id number] [place] URINALYSIS, DIPSTICK ONLYon 11-03-2023 Bilirubin Ql (U) Negative Normal Negative [facility] Comment on above: Order Comment: Speci men Type: URINE SPECIMEN Ordering Facility: [facility] Address: [address] [place] [address] Performed By: #### U A #### [facility] CLIA [id number] [address] [place] [address] [place] Clarity (Unsp spec) Clear Normal Clear [facility] Comment on above: Order Comment: Speci men Type: URINE SPECIMEN Ordering Facility: [facility] Address: [address] [place] [address] Performed By: #### U A #### [facility] CLIA [id number] [address] [place] [address] [place] Color (U) Yellow Normal Yellow [facility] Comment on above: Order Comment: Speci men Type: URINE SPECIMEN Ordering Facility: [facility] Address: [address] [place] [address] Performed By: #### U A #### [facility] CLIA [id number] [address] [place] [address] [place] Glucose Test strip (U) [Mass/Vol] 2+ Abnormal Negative [facility] Comment on above: Order Comment: Speci men Type: URINE SPECIMEN Ordering Facility: [facility] Address: [address] [place] [address] Performed By: #### U A #### [facility] CLIA [id number] [address] [place] [address] [place] Hemoglobin Ql (U) Negative Normal Negative [facility] Comment on above: Order Comment: Speci men Type: URINE SPECIMEN Ordering Facility: [facility] Address: [address] [place] [address] Performed By: #### U A #### [facility] CLIA [id number] [address] [place] [address] [place] Ketones Ql (U) Negative Normal Negative [facility] Comment on above: Order Comment: Speci men Type: URINE SPECIMEN Ordering Facility: [facility] Address: [address] [place] [address] Performed By: #### U A #### [facility] CLIA [id number] [address] [place] [address] [place] Leukocyte esterase Test strip Ql (U) Negative Normal Negative [facility] Comment on above: Order Comment: Speci men Type: URINE SPECIMEN Ordering Facility: [facility] Address: [address] [place] [address] Performed By: #### U A #### [facility] CLIA [id number] [address] [place] [address] [place] Nitrite Ql (U) Negative Normal Negative [facility] Comment on above: Order Comment: Speci men Type: URINE SPECIMEN Ordering Facility: [facility] Address: [address] [place] [address] Performed By: #### U A #### [facility] CLIA [id number] [address] [place] [address] [place] pH (U) 6.5 [pH] Normal <8.5 [facility] Comment on above: Order Comment: Speci men Type: URINE SPECIMEN Ordering Facility: [facility] Address: [address] [place] [address] Performed By: #### U A #### [facility] CLIA [id number] [address] [place] [address] [place] Protein (U) [Mass/Vol] Negative Normal Negative [facility] Comment on above: Order Comment: Speci men Type: URINE SPECIMEN Ordering Facility: [facility] Address: [address] [place] [address] Performed By: #### U A #### [facility] CLIA [id number] [address] [place] [address] [place] Specific gravity (U) [Rel density] 1.010 Normal 1.005-1.03 0 [facility] Comment on above: Order Comment: Speci men Type: URINE SPECIMEN Ordering Facility: [facility] Address: [address] [place] [address] Performed By: #### U A #### [facility] CLIA [id number] [address] [place] [address] [place] Urobilinogen Ql (U) 0.2 EU/dL Normal 0.2-1.0 EU/dL [facility] Comment on above: Order Comment: Speci men Type: URINE SPECIMEN Ordering Facility: [facility] Address: [address] [place] [address] Performed By: #### U A #### [facility] CLIA [id number] [address] [place] [address] [place] XR CHEST 2V FRONTAL/LATon XR CHEST 2V FRONTAL/LAT * * *Final Report* * * DATE OF EXAM: Nov 03 2023 3:43PM JIX [id number] - XR CHEST 2V FRONTAL/LAT / PROCEDURE REASON: Shortness of breath * * * * Physician Interpretation * * * * EXAMINATION: CHEST RADIOGRAPH (2 VIEW FRONTAL and LATERAL) CLINICAL HISTORY: Shortness of breath MQ: XC2_6 EXAM DATE/TIME: 11/03/2023 3:43 PM COMPARISON: No relevant prior studies available. RESULT: Lines, tubes, and devices: None. Lungs and pleura: There is posterior eventration of the left hemidiaphragm. There is mild elevation of right hemidiaphragm. Partial atelectasis is seen in the medial bases. No significant pleural effusion or pneumothorax. Cardiomediastinal silhouette: Normal sized heart. Thoracic aorta is tortuous with atherosclerotic calcifications. Bones and soft tissues: The visualized bones are osteopenic. IMPRESSION: See result Business Writer: CAROL Transcribe Date/Time: Nov 04 2023 1:59A Dictated by : GHAZALA DAVIS MD This examination was interpreted and the report reviewed and electronically signed by: GHAZALA DAVIS MD on Nov 04 2023 2:00AM EST [id number] Normal [facility] aPTT PPPon 11-03-2023 aPTT Coag (PPP) [Time] 32.8 s High 23.0-32.4 [facility] Comment on above: Order Comment: Speci men Type: URINE SPECIMEN Ordering Facility: [facility] Address: [address] [place] [address] Performed By: #### U A #### [facility] CLIA [id number] [address] [place] [address] [place] [address] [place] A1C with Estimated Average Gagan schulz 11-02-2023 Glucose [Mass/Vol] 105 mg/dL Normal [facility] Comment on above: Result Comment: PERF ORMED BY: [facility] [address] [place] [address] PATHOLOGIST PATENT SOLICITOR ASHA KEBEDE M.D. Performed By: #### A 1C WT eA, CBC, MG, BMP, LIPID ####[place] [id number] [facility] Automated basophil %Ordered By: Abdulaziz Blackwell on 11-02-2023 Basophils/100 WBC (Bld) 0.6 % Normal . [facility] Comment on above: Performed By: #### A 1C WTH eA, CBC, MG, BMP, LIPID ####[place] [id number] [facility] Automated basophil countOrde red By: Abdulaziz Blackwell on 11-02-2023 Basophils (Bld) [#/Vol] 0.0 10*3/uL Normal 0.0-0.2 [facility] Comment on above: Result Comment: PERF ORMED BY: [facility] [address] [place] [id number] PATHOLOGIST PATENT SOLICITOR ASHA KEBEDE M.D. Performed By: #### A 1C WT eA, CBC, MG, BMP, LIPID ####[place] [id number] [facility] Automated blood monocyte cou ntOrdered By: Joelmilady Blackwell on 11-02-2023 Monocytes (Bld) [#/Vol] 0.6 10*3/uL Normal 0.0-0.8 [facility] Comment on above: Performed By: #### A 1C WTH eA, CBC, MG, BMP, LIPID ####[place] [id number] [address] Automated eosinophil %Ordere d By: Joelmilady Blackwell on 11-02-2023 Eosinophils/100 WBC (Bld) 1.5 % Normal . [facility] Comment on above: Performed By: #### A 1C WTH eA, CBC, MG, BMP, LIPID ####[address] Automated eosinophil countOr dered By: Joelmilady Blackwell on 11-02-2023 Eosinophils (Bld) [#/Vol] 0.1 10*3/uL Normal 0.0-0.45 [facility] Comment on above: Performed By: #### A 1C WTH eA, CBC, MG, BMP, LIPID ####[address] Automated monocyte %Ordered By: Joelmilady Blackwell on 11-02-2023 Monocytes/100 WBC (Bld) 7.5 % Normal . [facility] Comment on above: Performed By: #### A 1C WTH eA, CBC, MG, BMP, LIPID ####[address] Automated neutrophil %Ordere d By: Joelmilady Blackwell on 11-02-2023 Neutrophils/100 WBC (Bld) 68.7 % Normal . [facility] Comment on above: Performed By: #### A 1C WTH eA, CBC, MG, BMP, LIPID ####[address] Basic Metabolic Panelon 10-08 Creatinine Clr Calc Pharmacy 53.72 Normal [facility] Comment on above: Performed By: #### A 1C WTH eA, CBC, MG, BMP, LIPID ####[place] [address] [place] [address] [facility] GFR/1.73 sq M.predicted MDRD (S/P/Bld) [Vol rate/Area] mL/min/{1.73_m2} Normal [facility] Comment on above: Performed By: #### A 1C [facility] eA, CBC, MG, BMP, LIPID ####[place] [address] [place] [address] [place] Calcium [Mass/volume] in Ser um or PlasmaOrdered By: Abdulaziz Blackwell on 11-02-2023 Calcium [Mass/Vol] 9.3 mg/dL Normal 8.6-10.3 [facility] Comment on above: Performed By: #### A 1C WT eA, CBC, MG, BMP, LIPID ####[place] [address] [place] [address] [facility] Carbon dioxide, total [Moles /volume] in Serum or PlasmaOrdered By: Abdulaziz Blackwell on 11-02-2023 CO2 [Moles/Vol] 24.1 mmol/L Normal 21.0-31.0 [facility] Comment on above: Performed By: #### A 1C [facility] eA, CBC, MG, BMP, LIPID ####[place] [address] [place] [address] [place] Chloride [Moles/volume] in S karla or PlasmaOrdered By: Abdulaziz Blackwell on 11-02-2023 Chloride [Moles/Vol] 111 mmol/L High 98-107 [facility] Comment on above: Performed By: #### A 1C WT eA, CBC, MG, BMP, LIPID ####[address] [address] [place] Cholesterol [Mass/volume] in Serum or PlasmaOrdered By: Abdulaziz Blackwell on 11-02-2023 Cholesterol [Mass/Vol] 126 mg/dL Low 140-200 [facility] Comment on above: Chol less than 200 m g/dl low riskChol 201-239 mg/dl borderline riskChol 240 mg/dl and greater high risk Result Comment: Chol less than 200 mg/dl low risk Chol 201-239 mg/dl borderline risk Chol 240 mg/dl and greater high risk Performed By: #### A 1C WT eA, CBC, MG, BMP, LIPID ####[facility] [place] [id number] [facility] Cholesterol in LDL Calc [Mas s/Vol]Ordered By: Abdulaziz Blackwell on 11-02-2023 Cholesterol in LDL [Mass/Vol] 51 mg/dL 0-100 [facility] Comment on above: LDL ATP III CLASSIFI CATIONLDL less than 100 mg/dL OptimalLDL 100-129 mg/dL Near or above optimalLDL 130-159 mg/dL Borderline highLDL 160-189 mg/dL HighLDL greater than 189 mg/dL Very high Cholesterol in VLDL Calc [Ma ss/Vol]Ordered By: Abdulaziz Blackwell on 11-02-2023 Cholesterol in VLDL [Mass/Vol] 32 mg/dL [facility] Complete Blood Count Auto Di ffon 11-02-2023 Mean Corpuscular HGB Conc 33.2 g/dL Normal 32.0-35.0 [facility] Comment on above: Performed By: #### A 1C WT eA, CBC, MG, BMP, LIPID ####[place] [address] NRBC% 0.1 /100{WBC} Normal 0-0.5 [facility] Comment on above: Performed By: #### A 1C WT eA, CBC, MG, BMP, LIPID ####[place] [address] [place] [id number] [facility] Creatinine [Mass/volume] in Serum or PlasmaOrdered By: Abdulaziz Blackwell on 11-02-2023 Creatinine [Mass/Vol] 0.86 mg/dL Normal 0.60-1.20 [facility] Comment on above: Performed By: #### A 1C WT eA, CBC, MG, BMP, LIPID ####[place] [address] [place] [id number] [facility] ECG 12 lead ECGon 11-02-2023 ECG 12 lead ECG [facility] [address] [place] [address] [place] [address] Electrocardiograph Report Signed Patient: Kimberly Everett MR#: [id number] 529 : 1950 Acct:[id number] Age/Sex: 72 / F ADM Date: 11/02/23 Loc: 3T Room: [address] [place] [address] Type: ADM IN Attending Dr: Lisa Graham DO Ordering Provider: Lisa Graham DO Date of Service: 11/02/23 ECG/ECG 12 lead ECG: rhythm change Copies to: Test Reason : Blood Pressure : / mmHG Vent. Rate : 047 BPM Atrial Rate : 047 BPM P-R Int : 222 ms QRS Dur : 148 ms QT Int : 552 ms P-R-T Axes : 075 -02 047 degrees QTc Int : 488 ms Marked sinus bradycardia with 1st degree AV block Left bundle branch block Abnormal ECG When compared with ECG of 02-NOV-2023 02:53, (Unconfirmed) Sinus rhythm is no longer with 2nd degree AV block Left bundle branch block has replaced Nonspecific intraventricular block Confirmed by ALB[facility] ([id number] on 11/02/2023 8:12:48 AM Referred By: Electronically Signed By:DEION CH MD [facility] Transcribed By: MUS Signed By Lenny Ch MD 11/02/23 0812 Normal [facility] ECG 12 lead ECG [place] [address] Electrocardiograph Report Signed Patient: Kimberly Everett MR#: [id number] 529 : 1950 Acct:[id number] Age/Sex: 72 / F ADM Date: 11/02/23 Loc: Room: [address] [place] [address] Type: ADM IN Attending Dr: Lisa Graham DO Ordering Provider: Lisa Graham DO Date of Service: 11/02/23 ECG/ECG 12 lead ECG: pt evalulation Copies to: Test Reason : Blood Pressure : / mmHG Vent. Rate : 048 BPM Atrial Rate : 096 BPM P-R Int : 192 ms QRS Dur : 146 ms QT Int : 532 ms P-R-T Axes : 069 106 -38 degrees QTc Int : 475 ms Probable sinus bradycardia, verify AV conduction Rightward axis Nonspecific intraventricular block Abnormal ECG No previous ECGs available Confirmed by [facility] ([id number]) on 11/02/2023 8:12:28 AM Referred By: HOSPITALIST Electronically Signed By:DEION CH MD [facility] Transcribed By: MUS Signed By Lenny Ch MD 11/02/23 0812 Normal [facility] Erythrocyte distribution wid th [Ratio] by Automated countOrdered By: Abdulaziz Blackwell on 11-02-2023 Erythrocyte distribution width (RBC) [Ratio] 13.7 % Normal 11.9-15.3 [facility] Comment on above: Performed By: #### A 1C WTH eA, CBC, MG, BMP, LIPID ####[place] [address] [place] [address] [facility] Erythrocytes [#/volume] in B lood by Automated countOrdered By: Abdulaziz Blackwell on 11-02-2023 RBC (Bld) [#/Vol] 3.99 10*6/uL Normal 3.60-5.[address] [facility] Comment on above: Performed By: #### A 1C WTH eA, CBC, MG, BMP, LIPID ####[place] [address] [place] [address] [facility] Glucose [Mass/volume] in Ser um or PlasmaOrdered By: Abdulaziz Blackwell on 11-02-2023 Glucose [Mass/Vol] 114 mg/dL High 70-100 [facility] Comment on above: ADA recommended refe rence rangeRandom Glucose Reference Range is dependent on time and content of last meal. Glucose of more than 200 mg/dL in a nonstressed, ambulatory subject supports the diagnosis of Diabetes Mellitus. Result Comment: [place] om Glucose Reference Range is dependent on time and content of last meal. Glucose of more than 200 mg/dL in a nonstressed, ambulatory subject supports the diagnosis of Diabetes Mellitus. ADA recommended reference range Performed By: #### A 1C WTH eA, CBC, MG, BMP, LIPID ####[facility] [place] [address] [facility] Glucose mean value [Mass/vol ume] in Blood Estimated from glycated hemoglobinOrdered By: Abdulaziz Blackwell on 11-02-2023 Average glucose Estimated from glycated hemoglobin (Bld) [Mass/Vol] 105 mg/dL [facility] Hematocrit [Volume Fraction] of Blood by Automated countOrdered By: Abdulaziz Blackwell on 11-02-2023 Hematocrit (Bld) [Volume fraction] 36.8 % Normal 34.0-46.4 [facility] Comment on above: Performed By: #### A 1C WT eA, CBC, MG, BMP, LIPID ####[place] [address] Hemoglobin A1c percentageOrd ered By: Abdulaziz Blackwell on 11-02-2023 HbA1c (Bld) [Mass fraction] 5.3 % Normal 4.3-5.6 [facility] Comment on above: Increased risk for d iabetes: 5.7 - 6.4diabetes: >6.4glycemic control for adults with diabetes: <7.0 Result Comment: Incr eased risk for diabetes: 5.7 - 6.4 diabetes: >6.4 glycemic control for adults with diabetes: <7.0 Performed By: #### A 1C WT eA, CBC, MG, BMP, LIPID ####[place] [address] Hemoglobin [Mass/volume] in BloodOrdered By: Abdulaziz Blackwell on 11-02-2023 Hemoglobin (Bld) [Mass/Vol] 12.2 g/dL Normal 11.8-15.4 [facility] Comment on above: Performed By: #### A 1C [facility] eA, CBC, MG, BMP, LIPID ####[address] Leukocytes [#/volume] correc анна for nucleated erythrocytes in Blood by Automated counOrdered By: Abdulaziz Blackwell on 11-02-2023 WBC corrected for nucl RBC Auto (Bld) [#/Vol] 8.6 10*3/uL 3.8-11.6 [facility] Leukocytes [#/volume] in Blo od by Automated countOrdered By: Abdulaziz Blackwell on 11-02-2023 WBC (Bld) [#/Vol] 8.6 10*3/uL Normal 3.8-11.6 [facility] Comment on above: Performed By: #### A 1C WT eA, CBC, MG, BMP, LIPID ####[facility] [place] [id number] [facility] Lipid Panelon 11-02-2023 LDL Cholesterol,Calculated 51 mg/dL Normal 0-100 [facility] Comment on above: Result Comment: LDL ATP III CLASSIFICATION LDL less than 100 mg/dL Optimal LDL 100-129 mg/dL Near or above optimal LDL 130-159 mg/dL Borderline high LDL 160-189 mg/dL High LDL greater than 189 mg/dL Very high Performed By: #### A 1C WT eA, CBC, MG, BMP, LIPID ####[place] [address] Triglyceride w/Reflex 162 mg/dL High 0-149 [facility] Comment on above: Result Comment: TRIG ATP III CLASSIFICATION TRIG less than 150 mg/dL Normal TRIG 150-199 mg/dL Borderline high TRIG 200-500 mg/dL High TRIG greater than 500 mg/dL Very high Standard traceable to the Center for Disease Conrtrol and Prevention (CDC) test method. Performed By: #### A 1C [facility] eA, CBC, MG, BMP, LIPID ####[place] [address] VLDL CHOLESTEROL 32 mg/dL Normal [facility] Comment on above: Performed By: #### A 1C WT eA, CBC, MG, BMP, LIPID ####[place] [address] Lymphocytes [#/volume] in Bl ood by Automated countOrdered By: Abdulaziz Blackwell on 11-02-2023 Lymphocytes (Bld) [#/Vol] 1.9 10*3/uL Normal 1.00-4.8 [facility] Comment on above: Performed By: #### A 1C WTH eA, CBC, MG, BMP, LIPID ####[place] [address] Lymphocytes/100 leukocytes i n Blood by Automated countOrdered By: Abdulaziz Blackwell on 11-02-2023 Lymphocytes/100 WBC (Bld) 21.7 % Normal . [facility] Comment on above: Performed By: #### A 1C WT eA, CBC, MG, BMP, LIPID ####[place] [address] MCH [Entitic mass] by Automa анна countOrdered By: Joelmilady Blackwell on 11-02-2023 MCH (RBC) [Entitic mass] 30.6 pg Normal 24.7-34.3 [facility] Comment on above: Performed By: #### A 1C WT eA, CBC, MG, BMP, LIPID ####[address] MCHC Auto (RBC) [Mass/Vol]Or dered By: Joelmilady Blackwell on 11-02-2023 MCHC (RBC) [Mass/Vol] 33.2 g/dL 32.0-35.0 [facility] MCV [Entitic volume] by Auto mated countOrdered By: Abdulaziz Blackwell on 11-02-2023 MCV (RBC) [Entitic vol] 92.3 fL Normal 80-100 [facility] Comment on above: Performed By: #### A 1C [facility] eA, CBC, MG, BMP, LIPID ####[address] Magnesium [Mass/volume] in S karla or PlasmaOrdered By: Abdulaziz Blackwell on 11-02-2023 Magnesium [Mass/Vol] 2.0 mg/dL Normal 1.9-2.7 [facility] Comment on above: Performed By: #### A 1C WT eA, CBC, MG, BMP, LIPID ####[address] Neutrophils [#/volume] in Bl ood by Automated countOrdered By: Abdulaziz Blackwell on 11-02-2023 Neutrophils (Bld) [#/Vol] 5.9 10*3/uL Normal 1.8-7.7 [facility] Comment on above: Performed By: #### A 1C WTH eA, CBC, MG, BMP, LIPID ####[facility] [id number] No Panel InformationOrdered By: Abdulaziz Blackwell on 11-02-2023 Estimated GFR (CKD-EPI) > 60.0 mL/Min [facility] Creatinine Clearance (Chem 53.72 [facility] Nucleated erythrocytes [Pres ence] in Blood by Automated countOrdered By: Abdulaziz Blackwell on 11-02-2023 Nucleated RBC Auto Ql (Bld) 0.1 /100{WBC} 0-0.5 [facility] Platelet mean volume [Entiti c volume] in Blood by Automated countOrdered By: Abdulaziz Blackwell on 11-02-2023 Platelet mean volume (Bld) [Entitic vol] 8.9 fL Normal 6.3-10.7 [facility] Comment on above: Performed By: #### A 1C [facility] eA, CBC, MG, BMP, LIPID ####[place] [address] Platelets [#/volume] in Bloo d by Automated countOrdered By: Abdulaziz Blackwell on 11-02-2023 Platelets (Bld) [#/Vol] 271 10*3/uL Normal 150-450 [facility] Comment on above: Performed By: #### A 1C [facility] eA, CBC, MG, BMP, LIPID ####[place] [address] Potassium [Moles/volume] in Serum or PlasmaOrdered By: Abdulaziz Blackwell on 11-02-2023 Potassium [Moles/Vol] 3.9 mmol/L Normal 3.5-5.1 [facility] Comment on above: Performed By: #### A 1C WT eA, CBC, MG, BMP, LIPID ####[address] Serum or plasma anion gap de terminationOrdered By: Abdulaziz Blackwell on 11-02-2023 Anion gap [Moles/Vol] 10.8 mmol/L Normal 6.0-15.0 [facility] Comment on above: Performed By: #### A 1C WT eA, CBC, MG, BMP, LIPID ####[place] [address] Serum or plasma high density lipoprotein (HDL) cholesterol measurementOrdered By: Abdulaziz Blackwell on 11-02-2023 Cholesterol in HDL [Mass/Vol] 43 mg/dL Normal 23-92 [facility] Comment on above: HDL CHOL ATP-III CLA SSIFICATION Cardiovascular RiskHDL > or equal to 60 mg/dL LOWHDL < 40 mg/dL HIGH Result Comment: HDL CHOL ATP-III CLASSIFICATION Cardiovascular Risk HDL > or equal to 60 mg/dL LOW HDL < 40 mg/dL HIGH Performed By: #### A 1C WT eA, CBC, MG, BMP, LIPID ####[place] [address] Serum or plasma total choles terol/high density lipoprotein (HDL) cholesterol mass ratOrdered By: Abdulaziz Blackwell on 11-02-2023 Cholesterol.total/Chol esterol in HDL [Mass ratio] 2.9 {ratio} Normal <5.0 [facility] Comment on above: Result Comment: PERF ORMED BY: [facility] [address] [place] [address] PATHOLOGIST PATENT SOLICITOR ASHA KEBEDE M.D. Performed By: #### A 1C [facility] eA, CBC, MG, BMP, LIPID ####[place] [address] Sodium [Moles/volume] in Ser um or PlasmaOrdered By: Abdulaziz Blackwell on 11-02-2023 Sodium [Moles/Vol] 142 mmol/L Normal 136-145 [facility] Comment on above: Performed By: #### A 1C WT eA, CBC, MG, BMP, LIPID ####[place] [address] Triglyceride [Mass/volume] i n Serum or PlasmaOrdered By: Abdulaziz Blackwell on 11-02-2023 Triglyceride [Mass/Vol] 162 mg/dL 0-149 [facility] Comment on above: TRIG ATP III CLASSIF ICATIONTRIG less than 150 mg/dL NormalTRIG 150-199 mg/dL Borderline highTRIG 200-500 mg/dL High TRIG greater than 500 mg/dL Very highStandard traceable to the Center for Disease Conrtrol and Prevention (CDC) test method. Urea nitrogen [Mass/volume] in Serum or PlasmaOrdered By: Abdulaziz Blackwell on 11-02-2023 Urea nitrogen [Mass/Vol] 31 mg/dL High 03-02 [facility] Comment on above: Performed By: #### A 1C WT eA, CBC, MG, BMP, LIPID ####[facility] [id number] Activated partial thrombopla stin time (aPTT) in platelet poor plasma by coagulation aOrdered By: Lambert Abraham on 11-01-2023 aPTT Coag (PPP) [Time] 32.6 s 25.1-36.5 [facility] Comment on above: A hematocrit value g reater than 55% may lead to inaccurate results in coagulation testing. Patients having hematocrit values >55% require a special collection tube for coagulation studies. Please contact the laboratory at [phone] for redraw instructions. Alanine aminotransferase [En zymatic activity/volume] in Serum or PlasmaOrdered By: Lambert Abraham on 11-01-2023 ALT [Catalytic activity/Vol] 13 U/L Normal 7-52 [facility] Comment on above: Performed By: #### B MP, CBC, CK, BNP, HS TROP, PT, PTT, HEPATIC #### [facility] [address] [place] [address] [place] Albumin [Mass/volume] in Ser um or Plasma by Bromocresol green (BCG) dye binding methoOrdered By: Lambert Abraham on 11-01-2023 Albumin BCG dye [Mass/Vol] 4.7 g/dL 3.5-5.7 [facility] Alkaline phosphatase [Enzyma tic activity/volume] in Serum or PlasmaOrdered By: Lambert Abraham on 11-01-2023 ALP [Catalytic activity/Vol] 57 U/L Normal 34-104 [facility] Comment on above: Performed By: #### B MP, CBC, CK, BNP, HS TROP, PT, PTT, HEPATIC #### [address] Aspartate aminotransferase [ Enzymatic activity/volume] in Serum or PlasmaOrdered By: Lambert Abraham on 11-01-2023 AST [Catalytic activity/Vol] 16 U/L Normal 13-39 [facility] Comment on above: Performed By: #### B MP, CBC, CK, BNP, HS TROP, PT, PTT, HEPATIC #### [address] Automated basophil %Ordered By: Lambert Abraham on 11-01-2023 Basophils/100 WBC (Bld) 0.9 % Normal . [facility] Comment on above: Performed By: #### B MP, CBC, CK, BNP, HS TROP, PT, PTT, HEPATIC #### [address] Automated basophil countOrde red By: Lambert Abraham on 11-01-2023 Basophils (Bld) [#/Vol] 0.1 10*3/uL Normal 0.0-0.2 [facility] Comment on above: Result Comment: PERF ORMED BY: [place] [address] PATHOLOGIST PATENT SOLICITOR ASHA KEBEDE M.D. Performed By: #### B MP, CBC, CK, BNP, HS TROP, PT, PTT, HEPATIC #### [address] Automated blood monocyte cou ntOrdered By: Lambert Abraham on 11-01-2023 Monocytes (Bld) [#/Vol] 0.6 10*3/uL Normal 0.0-0.8 [facility] Comment on above: Performed By: #### B MP, CBC, CK, BNP, HS TROP, PT, PTT, HEPATIC #### [address] Automated eosinophil %Ordere d By: Lambert Abraham on 11-01-2023 Eosinophils/100 WBC (Bld) 1.4 % Normal . [facility] Comment on above: Performed By: #### B MP, CBC, CK, BNP, HS TROP, PT, PTT, HEPATIC #### [address] Automated eosinophil countOr dered By: Lambert Abraham on 11-01-2023 Eosinophils (Bld) [#/Vol] 0.1 10*3/uL Normal 0.0-0.45 [facility] Comment on above: Performed By: #### B MP, CBC, CK, BNP, HS TROP, PT, PTT, HEPATIC #### [address] Automated monocyte %Ordered By: Lambert Abraham on 11-01-2023 Monocytes/100 WBC (Bld) 6.8 % Normal . [facility] Comment on above: Performed By: #### B MP, CBC, CK, BNP, HS TROP, PT, PTT, HEPATIC #### [address] Automated neutrophil %Ordere d By: Lambert Abraham on 11-01-2023 Neutrophils/100 WBC (Bld) 69.8 % Normal . [facility] Comment on above: Performed By: #### B MP, CBC, CK, BNP, HS TROP, PT, PTT, HEPATIC #### [address] BNP ser/plasOrdered By: Jose Abraham on 11-01-2023 Natriuretic peptide B (Bld) [Mass/Vol] 230.0 pg/mL High 5-100 [facility] Comment on above: Result Comment: PERF ORMED BY: [place] [address] PATHOLOGIST PATENT SOLICITOR ASHA KEBEDE M.D. Performed By: #### B MP, CBC, CK, BNP, HS TROP, PT, PTT, HEPATIC #### [address] Basic Metabolic Panelon 10-08 GFR/1.73 sq M.predicted MDRD (S/P/Bld) [Vol rate/Area] 46.081 mL/min/{1.73_m2} Normal [facility] Comment on above: Performed By: #### B MP, CBC, CK, BNP, HS TROP, PT, PTT, HEPATIC #### [facility] [address] Bilirubin.direct [Mass/volum e] in Serum or PlasmaOrdered By: Lambert Abraham on 11-01-2023 Bilirubin.direct [Mass/Vol] 0.10 mg/dL 0.03-0.18 [facility] Bilirubin.total [Mass/volume ] in Serum or PlasmaOrdered By: Lambert Abraham on 11-01-2023 Bilirubin [Mass/Vol] 0.4 mg/dL Normal 0.3-1.0 [facility] Comment on above: Performed By: #### B MP, CBC, CK, BNP, HS TROP, PT, PTT, HEPATIC #### [facility] [address] Calcium [Mass/volume] in Ser um or PlasmaOrdered By: Lambert Abraham on 11-01-2023 Calcium [Mass/Vol] 9.6 mg/dL Normal 8.6-10.3 [facility] Comment on above: Result Comment: PERF ORMED BY: [place] [address] PATHOLOGIST PATENT SOLICITOR ASHA KEBEDE M.D. Performed By: #### B MP, CBC, CK, BNP, HS TROP, PT, PTT, HEPATIC #### [facility] [address] [place] [address] [place] Carbon dioxide, total [Moles /volume] in Serum or PlasmaOrdered By: Lambert Abraham on 11-01-2023 CO2 [Moles/Vol] 20.3 mmol/L Low 21.0-31.0 [facility] Comment on above: Performed By: #### B MP, CBC, CK, BNP, HS TROP, PT, PTT, HEPATIC #### [facility] [address] [place] [address] [place] Chloride [Moles/volume] in S karla or PlasmaOrdered By: Lambert Abraham on 11-01-2023 Chloride [Moles/Vol] 109 mmol/L High 98-107 [facility] Comment on above: Performed By: #### B MP, CBC, CK, BNP, HS TROP, PT, PTT, HEPATIC #### [facility] [address] Complete Blood Count Auto Di ffon 11-01-2023 Mean Corpuscular HGB Conc 33.3 g/dL Normal 32.0-35.0 [facility] Comment on above: Performed By: #### B MP, CBC, CK, BNP, HS TROP, PT, PTT, HEPATIC #### [address] Monocytes/100 WBC (Bld) 16.94 % Normal 0.00-20.00 [facility] Comment on above: Performed By: #### B MP, CBC, CK, BNP, HS TROP, PT, PTT, HEPATIC #### [address] NRBC% 0.1 /100{WBC} Normal 0-0.5 [facility] Comment on above: Performed By: #### B MP, CBC, CK, BNP, HS TROP, PT, PTT, HEPATIC #### [facility] [address] Creatine kinase [Enzymatic a ctivity/volume] in Serum or PlasmaOrdered By: Lambert Abraham on 11-01-2023 CK [Catalytic activity/Vol] 83 U/L Normal 30-223 [facility] Comment on above: Performed By: #### B MP, CBC, CK, BNP, HS TROP, PT, PTT, HEPATIC ####[facility] [place] [address] Creatinine [Mass/volume] in Serum or PlasmaOrdered By: Lambert Abraham on 11-01-2023 Creatinine [Mass/Vol] 1.25 mg/dL High 0.60-1.20 [facility] Comment on above: Performed By: #### B MP, CBC, CK, BNP, HS TROP, PT, PTT, HEPATIC #### [address] ECG 12 lead ECGon 11-01-2023 ECG 12 lead ECG [facility] [address] [place] [address] [place] [address] Electrocardiograph Report Signed Patient: Kimberly Everett MR#: [id number] 529 : 1950 Acct:[id number] Age/Sex: 72 / F ADM Date: 11/01/23 Loc: Room: [address] [place] [address] Type: ADM INOo Attending Dr: Lisa Graham DO Ordering Provider: Lambert Abraham DO Date of Service: 11/01/23 ECG/ECG 12 lead ECG: Chest Pain Copies to: Test Reason : Blood Pressure : 211/085 mmHG Vent. Rate : 059 BPM Atrial Rate : 059 BPM P-R Int : 176 ms QRS Dur : 078 ms QT Int : 514 ms P-R-T Axes : 065 020 018 degrees QTc Int : 508 ms Sinus bradycardia with premature ventricular complexes or fusion complexes Prolonged QT Abnormal ECG When compared with ECG of 01-NOV-2023 15:44, (Unconfirmed) fusion complexes are now present premature ventricular complexes are now present Sinus rhythm is no longer with 2nd degree AV block Questionable change in QRS duration Borderline criteria for Lateral infarct are no longer present Confirmed by Lambert Abraham DO ([id number]) on 11/02/2023 12:42:48 AM Referred By: Electronically Signed By:Lambert Abraham DO Transcribed By: MUS Signed By Lambert Abraham DO 4 0042 Normal [facility] Erythrocyte distribution wid th [Ratio] by Automated countOrdered By: Lambert Abraham on 11-01-2023 Erythrocyte distribution width (RBC) [Ratio] 13.8 % Normal 11.9-15.3 [facility] Comment on above: Performed By: #### B MP, CBC, CK, BNP, HS TROP, PT, PTT, HEPATIC #### [place] [address] [place] Erythrocytes [#/volume] in B lood by Automated countOrdered By: Lambert Abraham on 11-01-2023 RBC (Bld) [#/Vol] 4.10 10*6/uL Normal 3.60-5.[address] [facility] Comment on above: Performed By: #### B MP, CBC, CK, BNP, HS TROP, PT, PTT, HEPATIC #### [address] Glucose [Mass/volume] in Ser um or PlasmaOrdered By: Lambert Abraham on 11-01-2023 Glucose [Mass/Vol] 104 mg/dL High 70-100 [facility] Comment on above: ADA recommended refe rence rangeRandom Glucose Reference Range is dependent on time and content of last meal. Glucose of more than 200 mg/dL in a nonstressed, ambulatory subject supports the diagnosis of Diabetes Mellitus. Result Comment: [place] om Glucose Reference Range is dependent on time and content of last meal. Glucose of more than 200 mg/dL in a nonstressed, ambulatory subject supports the diagnosis of Diabetes Mellitus. ADA recommended reference range Performed By: #### B MP, CBC, CK, BNP, HS TROP, PT, PTT, HEPATIC #### [address] Hematocrit [Volume Fraction] of Blood by Automated countOrdered By: Lambert Abraham on 11-01-2023 Hematocrit (Bld) [Volume fraction] 37.8 % Normal 34.0-46.4 [facility] Comment on above: Performed By: #### B MP, CBC, CK, BNP, HS TROP, PT, PTT, HEPATIC #### [address] Hemoglobin [Mass/volume] in BloodOrdered By: Lambert Abraham on 11-01-2023 Hemoglobin (Bld) [Mass/Vol] 12.6 g/dL Normal 11.8-15.4 [facility] Comment on above: Performed By: #### B MP, CBC, CK, BNP, HS TROP, PT, PTT, HEPATIC #### [address] Hepatic Panelon 11-01-2023 Albumin [Mass/Vol] 4.7 g/dL Normal 3.5-5.7 [facility] Comment on above: Performed By: #### B MP, CBC, CK, BNP, HS TROP, PT, PTT, HEPATIC #### [address] [place] [address] [place] Bilirubin,Indirect 0.3 mg/dL Normal [facility] Comment on above: Performed By: #### B MP, CBC, CK, BNP, HS TROP, PT, PTT, HEPATIC #### [facility] [address] Bilirubin.indirect [Mass/Vol] 0.10 mg/dL Normal 0.03-0.18 [facility] Comment on above: Performed By: #### B MP, CBC, CK, BNP, HS TROP, PT, PTT, HEPATIC #### [facility] [address] INR in Platelet poor plasma by Coagulation assayOrdered By: Lambert Abraham on 11-01-2023 INR Coag (PPP) [Relative time] 1.0 {INR} Normal [facility] Comment on above: INR Therapeutic Rang e A) Pre- and Peroperative OAT started two weeks before surgery. NOT HIP SURGERY: 1.5 - 2.5 HIP SURGERY: 2 - 3B) Primary and secondary prevention of venous THROMBOSIS: 2 - 3C) Active venous thrombosis, pulmonary embolismand prevention of recurrent venous thrombosis: 2 - 3D) Prevention of arterial thromboembolismincluding patients with mechanical heart valves: 3 - 4.5 Result Comment: INR Therapeutic Range A) Pre- and Peroperative OAT started two weeks before surgery. NOT HIP SURGERY: 1.5 - 2.5 HIP SURGERY: 2 - 3 B) Primary and secondary prevention of venous THROMBOSIS: 2 - 3 C) Active venous thrombosis, pulmonary embolism and prevention of recurrent venous thrombosis: 2 - 3 D) Prevention of arterial thromboembolism including patients with mechanical heart valves: 3 - 4.5 Performed By: #### B MP, CBC, CK, BNP, HS TROP, PT, PTT, HEPATIC ####[facility] [id number] Leukocytes [#/volume] correc анна for nucleated erythrocytes in Blood by Automated counOrdered By: Lambert Abraham on 11-01-2023 WBC corrected for nucl RBC Auto (Bld) [#/Vol] 8.2 10*3/uL 3.8-11.6 [facility] Leukocytes [#/volume] in Blo od by Automated countOrdered By: Lambert Abraham on 11-01-2023 WBC (Bld) [#/Vol] 8.2 10*3/uL Normal 3.8-11.6 [facility] Comment on above: Performed By: #### B MP, CBC, CK, BNP, HS TROP, PT, PTT, HEPATIC #### [facility] [address] [place] [address] Lymphocytes [#/volume] in Bl ood by Automated countOrdered By: Lambert Abraham on 11-01-2023 Lymphocytes (Bld) [#/Vol] 1.7 10*3/uL Normal 1.00-4.8 [facility] Comment on above: Performed By: #### B MP, CBC, CK, BNP, HS TROP, PT, PTT, HEPATIC #### [address] Lymphocytes/100 leukocytes i n Blood by Automated countOrdered By: Lambert Abraham on 11-01-2023 Lymphocytes/100 WBC (Bld) 21.1 % Normal . [facility] Comment on above: Performed By: #### B MP, CBC, CK, BNP, HS TROP, PT, PTT, HEPATIC #### [facility] [address] [place] [address] MCH [Entitic mass] by Automa анна countOrdered By: Lambert Abraham on 11-01-2023 MCH (RBC) [Entitic mass] 30.7 pg Normal 24.7-34.3 [facility] Comment on above: Performed By: #### B MP, CBC, CK, BNP, HS TROP, PT, PTT, HEPATIC #### [facility] [address] [place] [address] MCHC Auto (RBC) [Mass/Vol]Or dered By: Lambert Abraham on 11-01-2023 MCHC (RBC) [Mass/Vol] 33.3 g/dL 32.0-35.0 [facility] MCV [Entitic volume] by Auto mated countOrdered By: Lambert Abraham on 11-01-2023 MCV (RBC) [Entitic vol] 92.1 fL Normal 80-100 [facility] Comment on above: Performed By: #### B MP, CBC, CK, BNP, HS TROP, PT, PTT, HEPATIC #### [facility] [address] Monocyte distribution width [Entitic volume] in Blood by AutomatedOrdered By: Lambert Abraham on 11-01-2023 Monocyte distribution width Auto (Bld) [Entitic vol] 16.94 % 0.00-20.00 [facility] Neutrophils [#/volume] in Bl ood by Automated countOrdered By: Lambert Abraham on 11-01-2023 Neutrophils (Bld) [#/Vol] 5.7 10*3/uL Normal 1.8-7.7 [facility] Comment on above: Performed By: #### B MP, CBC, CK, BNP, HS TROP, PT, PTT, HEPATIC #### [facility] [address] No Panel InformationOrdered By: Lambert Abraham on 11-01-2023 Estimated GFR (CKD-EPI) 46.081 mL/Min [facility] Creatinine Clearance (Chem N/A [facility] Nucleated erythrocytes [Pres ence] in Blood by Automated countOrdered By: Lambert Abraham on 11-01-2023 Nucleated RBC Auto Ql (Bld) 0.1 /100{WBC} 0-0.5 [facility] Partial Thromboplastin Timeo n 11-01-2023 aPTT Coag (Bld) [Time] 32.6 s Normal 25.1-36.5 [facility] Comment on above: Result Comment: A he matocrit value greater than 55% may lead to inaccurate results in coagulation testing. Patients having hematocrit values >55% require a special collection tube for coagulation studies. Please contact the laboratory at [phone] for redraw instructions. PERFORMED BY: [place] [address] PATHOLOGIST PATENT SOLICITOR ASHA KEBEDE M.D. Performed By: #### B MP, CBC, CK, BNP, HS TROP, PT, PTT, HEPATIC ####[facility] [id number] Platelet mean volume [Entiti c volume] in Blood by Automated countOrdered By: Lambert Abraham on 11-01-2023 Platelet mean volume (Bld) [Entitic vol] 9.0 fL Normal 6.3-10.7 [facility] Comment on above: Performed By: #### B MP, CBC, CK, BNP, HS TROP, PT, PTT, HEPATIC #### [facility] [address] [place] [address] [place] Platelets [#/volume] in Bloo d by Automated countOrdered By: Lambert Abraham on 11-01-2023 Platelets (Bld) [#/Vol] 277 10*3/uL Normal 150-450 [facility] Comment on above: Performed By: #### B MP, CBC, CK, BNP, HS TROP, PT, PTT, HEPATIC #### [facility] [address] [place] [address] [facility] Potassium [Moles/volume] in Serum or PlasmaOrdered By: Lambert Abraham on 11-01-2023 Potassium [Moles/Vol] 3.8 mmol/L Normal 3.5-5.1 [facility] Comment on above: Performed By: #### B MP, CBC, CK, BNP, HS TROP, PT, PTT, HEPATIC #### [facility] [address] [place] [address] [facility] Protein [Mass/volume] in Ser um or PlasmaOrdered By: Lambert Abraham on 11-01-2023 Protein [Mass/Vol] 6.9 g/dL Normal 6.4-8.9 [facility] Comment on above: Performed By: #### B MP, CBC, CK, BNP, HS TROP, PT, PTT, HEPATIC #### [facility] [address] [place] [address] [place] Prothrombin time (PT)Ordered By: Lambert Abraham on 11-01-2023 PT Coag (PPP) [Time] 11.3 s Normal 9.0-12.9 [facility] Comment on above: A hematocrit value g reater than 55% may lead to inaccurate results in coagulation testing. Patients having hematocrit values >55% require a special collection tube for coagulation studies. Please contact the laboratory at [phone] for redraw instructions. Result Comment: A he matocrit value greater than 55% may lead to inaccurate results in coagulation testing. Patients having hematocrit values >55% require a special collection tube for coagulation studies. Please contact the laboratory at [phone] for redraw instructions. Performed By: #### B MP, CBC, CK, BNP, HS TROP, PT, PTT, HEPATIC ####[facility] [id number] Serum globulin measurement b y calculation (mass/volume)Ordered By: Lambert Abraham on 11-01-2023 Globulin (S) [Mass/Vol] 2.2 g/dL [facility] Comment on above: Performed By: #### B MP, CBC, CK, BNP, HS TROP, PT, PTT, HEPATIC #### [facility] [address] Serum or plasma albumin/glob ulin mass ratioOrdered By: Lambert Abraham on 11-01-2023 Albumin/Globulin [Mass ratio] 2.1 {ratio} [facility] Comment on above: Performed By: #### B MP, CBC, CK, BNP, HS TROP, PT, PTT, HEPATIC #### [facility] [address] Serum or plasma anion gap de terminationOrdered By: Lambert Abraham on 11-01-2023 Anion gap [Moles/Vol] 15.5 mmol/L High 6.0-15.0 [facility] Comment on above: Performed By: #### B MP, CBC, CK, BNP, HS TROP, PT, PTT, HEPATIC #### [facility] [address] Serum or plasma non-glucuron idated bilirubin measurement (mass/volume)Ordered By: Lambert Abraham on 11-01-2023 Bilirubin.indirect [Mass/Vol] 0.3 mg/dL [facility] Sodium [Moles/volume] in Ser um or PlasmaOrdered By: Lambert Abraham on 11-01-2023 Sodium [Moles/Vol] 141 mmol/L Normal 136-145 [facility] Comment on above: Performed By: #### B MP, CBC, CK, BNP, HS TROP, PT, PTT, HEPATIC #### [facility] [address] [place] [address] Troponin I High Sensitivityo n 11-01-2023 Troponin I High Sensitivity 7.0 pg/mL Normal 0.0-15.0 [facility] Comment on above: Result Comment: PERF ORMED BY: [place] [address] PATHOLOGIST PATENT SOLICITOR ASHA KEBEDE M.D. Performed By: #### B MP, CBC, CK, BNP, HS TROP, PT, PTT, HEPATIC ####[facility] [id number] Troponin I.cardiac [Mass/vol ume] in Serum or Plasma by Detection limit <= 0.01 ng/Ordered By: Lambert Abraham on 11-01-2023 Troponin I.cardiac DL <= 0.01 ng/mL [Mass/Vol] 7.0 pg/mL 0.0-15.0 [facility] Urea nitrogen [Mass/volume] in Serum or PlasmaOrdered By: Lambert Abraham on 11-01-2023 Urea nitrogen [Mass/Vol] 42 mg/dL High 03-02 [facility] Comment on above: Performed By: #### B MP, CBC, CK, BNP, HS TROP, PT, PTT, HEPATIC #### [facility] [address] [place] [address] [facility] XR chest 1V portableon 10-31 XR chest 1V portable [facility] Main [place] [id number] XRay Report Signed Patient: Kimberly Everett MR#: [id number] : 1950 Acct:[id number] Age/Sex: 72 / F ADM Date: 11/01/23 Loc: ER Room: Type: PRE ER Attending Dr: Copies to: Lambert Abraham DO Ordering Provider: Lambert Abraham DO Date of Service: 11/01/23 XR/XR chest 1V portable: CHEST PAIN SINGLE VIEW CHEST CLINICAL HISTORY: Chest pain shortness of breath bradycardia dizziness COMPARISON: Chest 12/12/2021 FINDINGS: Low lung volumes. No lung consolidation pneumothorax pleural effusion or free air. Heart is normal in size. XR/XR chest 1V portable IMPRESSION: NO ACUTE FINDINGS Impression dictated by: Leandro Gamez Jr., D.O.11/01/2023 6:31 PM Dictation Location: [place] [address] Transcribed By: [facility] 11/01/231830 Dictated By: Leandro Gamez Jr, DO 11/01/231829 Signed By: 11/01/231830 Normal [facility] Alanine aminotransferase [En zymatic activity/volume] in Serum or PlasmaOrdered By: Lisa Graham on 10-27-2023 ALT [Catalytic activity/Vol] 13 U/L Normal 7-52 [facility] Comment on above: Order Comment: Reaso n for Exam GERD (gastroesophageal reflux disease);Essential hypertensio Performed By: #### M Gagan CMP, CBC ####[facility] [id number] [place] [id number] [place] Albumin [Mass/volume] in Ser um or Plasma by Bromocresol green (BCG) dye binding methoOrdered By: Lisa Graham on 10-27-2023 Albumin BCG dye [Mass/Vol] 4.3 g/dL 3.5-5.7 [facility] Alkaline phosphatase [Enzyma tic activity/volume] in Serum or PlasmaOrdered By: Lisa Graham on 10-27-2023 ALP [Catalytic activity/Vol] 52 U/L Normal 34-104 [facility] Comment on above: Order Comment: Reaso n for Exam GERD (gastroesophageal reflux disease);Essential hypertensio Performed By: #### M Gagan, CMP, CBC ####[facility] [id number] [place] [id number] [place] Aspartate aminotransferase [ Enzymatic activity/volume] in Serum or PlasmaOrdered By: Lisa Graham on 10-27-2023 AST [Catalytic activity/Vol] 13 U/L Normal 13-39 [facility] Comment on above: Order Comment: Reaso n for Exam GERD (gastroesophageal reflux disease);Essential hypertensio Performed By: #### M G, CMP, CBC ####[address] Automated basophil %Ordered By: Lisa Graham on 10-27-2023 Basophils/100 WBC (Bld) 0.8 % Normal . [facility] Comment on above: Order Comment: Reaso n for Exam GERD (gastroesophageal reflux disease);Essential hypertensio Performed By: #### M G, CMP, CBC ####[address] Automated basophil countOrde red By: Lisa Graham on 10-27-2023 Basophils (Bld) [#/Vol] 0.1 10*3/uL Normal 0.0-0.2 [facility] Comment on above: Order Comment: Reaso n for Exam GERD (gastroesophageal reflux disease);Essential hypertensio Result Comment: PERF ORMED BY: [facility] [address] [facility] [place] [address] PATHOLOGIST PATENT SOLICITOR ASHA KEBEDE M.D. Performed By: #### M G, CMP, CBC ####[address] Automated blood monocyte cou ntOrdered By: Lisa Graham on 10-27-2023 Monocytes (Bld) [#/Vol] 0.5 10*3/uL Normal 0.0-0.8 [facility] Comment on above: Order Comment: Reaso n for Exam GERD (gastroesophageal reflux disease);Essential hypertensio Performed By: #### M G, CMP, CBC ####[address] Automated eosinophil %Ordere d By: Lisa Graham on 10-27-2023 Eosinophils/100 WBC (Bld) 1.7 % Normal . [facility] Comment on above: Order Comment: Reaso n for Exam GERD (gastroesophageal reflux disease);Essential hypertensio Performed By: #### M G, CMP, CBC ####[place] [id number] [facility] Automated eosinophil countOr dered By: Lisa Graham on 03-20-2024 Eosinophils (Bld) [#/Vol] 0.1 10*3/uL Normal 0.0-0.45 [facility] Comment on above: Order Comment: Reaso n for Exam GERD (gastroesophageal reflux disease);Essential hypertensio Performed By: #### M G, CMP, CBC ####[place] [id number] [address] Automated monocyte %Ordered By: Lisa Graham on 10-27-2023 Monocytes/100 WBC (Bld) 6.3 % Normal . [facility] Comment on above: Order Comment: Reaso n for Exam GERD (gastroesophageal reflux disease);Essential hypertensio Performed By: #### M G, CMP, CBC ####[address] Automated neutrophil %Ordere d By: Lisa Graham on 10-27-2023 Neutrophils/100 WBC (Bld) 70.5 % Normal . [facility] Comment on above: Order Comment: Reaso n for Exam GERD (gastroesophageal reflux disease);Essential hypertensio Performed By: #### M G, CMP, CBC ####[place] [id number] [facility] BNP ser/plasOrdered By: Gael Graham on 10-27-2023 Natriuretic peptide B (Bld) [Mass/Vol] 207.0 pg/mL High 5-100 [facility] Comment on above: Result Comment: PERF ORMED BY: [facility] [address] [place] [address] PATHOLOGIST PATENT SOLICITOR ASHA KEBEDE M.D. Performed By: #### B ASBESTOS SIDING MECHANIC ####[address] Bilirubin.total [Mass/volume ] in Serum or PlasmaOrdered By: Lisa Graham on 10-27-2023 Bilirubin [Mass/Vol] 0.4 mg/dL Normal 0.3-1.0 [facility] Comment on above: Order Comment: Reaso n for Exam GERD (gastroesophageal reflux disease);Essential hypertensio Performed By: #### M G, CMP, CBC ####[address] Calcium [Mass/volume] in Ser um or PlasmaOrdered By: Lisa Graham on 10-27-2023 Calcium [Mass/Vol] 9.3 mg/dL Normal 8.6-10.3 [facility] Comment on above: Order Comment: Reaso n for Exam GERD (gastroesophageal reflux disease);Essential hypertensio Performed By: #### M G, CMP, CBC ####[address] Carbon dioxide, total [Moles /volume] in Serum or PlasmaOrdered By: Lisa Graham on 10-27-2023 CO2 [Moles/Vol] 21.8 mmol/L Normal 21.0-31.0 [facility] Comment on above: Order Comment: Reaso n for Exam GERD (gastroesophageal reflux disease);Essential hypertensio Performed By: #### M G, CMP, CBC ####[address] Chloride [Moles/volume] in S karla or PlasmaOrdered By: Lisa Graham on 10-27-2023 Chloride [Moles/Vol] 111 mmol/L High 98-107 [facility] Comment on above: Order Comment: Reaso n for Exam GERD (gastroesophageal reflux disease);Essential hypertensio Performed By: #### M G, CMP, CBC ####[address] Complete Blood Count Auto Di ffon 10-27-2023 Mean Corpuscular HGB Conc 33.1 g/dL Normal 32.0-35.0 [facility] Comment on above: Order Comment: Reaso n for Exam GERD (gastroesophageal reflux disease);Essential hypertensio Performed By: #### M G, CMP, CBC ####[address] NRBC% 0.1 /100{WBC} Normal 0-0.5 [facility] Comment on above: Order Comment: Reaso n for Exam GERD (gastroesophageal reflux disease);Essential hypertensio Performed By: #### M G, CMP, CBC ####[place] [id number] [place] [address] [facility] Comprehensive Metabolic Pane adilia 10-27-2023 Albumin [Mass/Vol] 4.3 g/dL Normal 3.5-5.7 [facility] Comment on above: Order Comment: Reaso n for Exam GERD (gastroesophageal reflux disease);Essential hypertensio Performed By: #### M G, CMP, CBC ####[place] [id number] [facility] GFR/1.73 sq M.predicted MDRD (S/P/Bld) [Vol rate/Area] mL/min/{1.73_m2} Normal [facility] Comment on above: Order Comment: Reaso n for Exam GERD (gastroesophageal reflux disease);Essential hypertensio Performed By: #### M G, CMP, CBC ####[place] [id number] [facility] Creatinine [Mass/volume] in Serum or PlasmaOrdered By: Lisa Graham on 10-27-2023 Creatinine [Mass/Vol] 0.73 mg/dL Normal 0.60-1.20 [facility] Comment on above: Order Comment: Reaso n for Exam GERD (gastroesophageal reflux disease);Essential hypertensio Performed By: #### M G, CMP, CBC ####[place] [id number] [facility] Erythrocyte distribution wid th [Ratio] by Automated countOrdered By: Lisa Graham on 10-27-2023 Erythrocyte distribution width (RBC) [Ratio] 13.8 % Normal 11.9-15.3 [facility] Comment on above: Order Comment: Reaso n for Exam GERD (gastroesophageal reflux disease);Essential hypertensio Performed By: #### M G, CMP, CBC ####[place] [id number] [place] Erythrocytes [#/volume] in B lood by Automated countOrdered By: Lisa Graham on 10-27-2023 RBC (Bld) [#/Vol] 3.88 10*6/uL Normal 3.60-5.[address] [facility] Comment on above: Order Comment: Reaso n for Exam GERD (gastroesophageal reflux disease);Essential hypertensio Performed By: #### M KB Calvo, CBC ####[place] [id number] [facility] Glucose [Mass/volume] in Ser um or PlasmaOrdered By: Lisa Graham on 10-27-2023 Glucose [Mass/Vol] 116 mg/dL High 70-100 [facility] Comment on above: ADA recommended refe rence rangeRandom Glucose Reference Range is dependent on time and content of last meal. Glucose of more than 200 mg/dL in a nonstressed, ambulatory subject supports the diagnosis of Diabetes Mellitus. Order Comment: Reaso n for Exam GERD (gastroesophageal reflux disease);Essential hypertensio Result Comment: Line [place] om Glucose Reference Range is dependent on time and content of last meal. Glucose of more than 200 mg/dL in a nonstressed, ambulatory subject supports the diagnosis of Diabetes Mellitus. ADA recommended reference range Performed By: #### M KB Calvo, CBC ####[place] [id number] [facility] Hematocrit [Volume Fraction] of Blood by Automated countOrdered By: Lisa Graham on 10-27-2023 Hematocrit (Bld) [Volume fraction] 36.0 % Normal 34.0-46.4 [facility] Comment on above: Order Comment: Anjelo n for Exam GERD (gastroesophageal reflux disease);Essential hypertensio Performed By: #### M Gagan CMP, CBC ####[place] [id number] [facility] Hemoglobin [Mass/volume] in BloodOrdered By: Lisa Graham on 10-27-2023 Hemoglobin (Bld) [Mass/Vol] 11.9 g/dL Normal 11.8-15.4 [facility] Comment on above: Order Comment: Anjelo n for Exam GERD (gastroesophageal reflux disease);Essential hypertensio Performed By: #### M Gagan, CMP, CBC ####[place] [id number] [facility] Leukocytes [#/volume] correc анна for nucleated erythrocytes in Blood by Automated counOrdered By: Lisa Graham on 10-27-2023 WBC corrected for nucl RBC Auto (Bld) [#/Vol] 8.6 10*3/uL 3.8-11.6 [facility] Leukocytes [#/volume] in Blo od by Automated countOrdered By: Lisa Graham on 10-27-2023 WBC (Bld) [#/Vol] 8.6 10*3/uL Normal 3.8-11.6 [facility] Comment on above: Order Comment: Reaso n for Exam GERD (gastroesophageal reflux disease);Essential hypertensio Performed By: #### M G, CMP, CBC ####[place] [id number] [facility] Lymphocytes [#/volume] in Bl ood by Automated countOrdered By: Lisa Graham on 10-27-2023 Lymphocytes (Bld) [#/Vol] 1.8 10*3/uL Normal 1.00-4.8 [facility] Comment on above: Order Comment: Reaso n for Exam GERD (gastroesophageal reflux disease);Essential hypertensio Performed By: #### M G, CMP, CBC ####[place] [id number] [facility] Lymphocytes/100 leukocytes i n Blood by Automated countOrdered By: Lisa Graham on 10-27-2023 Lymphocytes/100 WBC (Bld) 20.7 % Normal . [facility] Comment on above: Order Comment: Reaso n for Exam GERD (gastroesophageal reflux disease);Essential hypertensio Performed By: #### M G, CMP, CBC ####[place] [id number] [facility] MCH [Entitic mass] by Automa анна countOrdered By: Lisa Graham on 10-27-2023 MCH (RBC) [Entitic mass] 30.7 pg Normal 24.7-34.3 [facility] Comment on above: Order Comment: Reaso n for Exam GERD (gastroesophageal reflux disease);Essential hypertensio Performed By: #### M G, CMP, CBC ####[address] [address] [facility] MCHC Auto (RBC) [Mass/Vol]Or dered By: Lisa Graham on 10-27-2023 MCHC (RBC) [Mass/Vol] 33.1 g/dL 32.0-35.0 [facility] MCV [Entitic volume] by Auto mated countOrdered By: Lisa Graham on 10-27-2023 MCV (RBC) [Entitic vol] 92.9 fL Normal 80-100 [facility] Comment on above: Order Comment: Reaso n for Exam GERD (gastroesophageal reflux disease);Essential hypertensio Performed By: #### M G, CMP, CBC ####[place] [id number] [place] [id number] [facility] Magnesium [Mass/volume] in S karla or PlasmaOrdered By: Lisa Graham on 10-27-2023 Magnesium [Mass/Vol] 1.6 mg/dL Low 1.9-2.7 [facility] Comment on above: Order Comment: Reaso n for Exam GERD (gastroesophageal reflux disease);Essential hypertensio Result Comment: PERF ORMED BY: [facility] [address] [place] [address] PATHOLOGIST PATENT SOLICITOR ASHA KEBEDE M.D. Performed By: #### M G, CMP, CBC ####[address] Neutrophils [#/volume] in Bl ood by Automated countOrdered By: Lisa Graham on 10-27-2023 Neutrophils (Bld) [#/Vol] 6.0 10*3/uL Normal 1.8-7.7 [facility] Comment on above: Order Comment: Reaso n for Exam GERD (gastroesophageal reflux disease);Essential hypertensio Performed By: #### M G, CMP, CBC ####[address] No Panel InformationOrdered By: Lisa Graham on 10-27-2023 Estimated GFR (CKD-EPI) > 60.0 mL/Min [facility] Creatinine Clearance (Chem N/A [facility] Nucleated erythrocytes [Pres ence] in Blood by Automated countOrdered By: Lisa Graham on 10-27-2023 Nucleated RBC Auto Ql (Bld) 0.1 /100{WBC} 0-0.5 [facility] Platelet mean volume [Entiti c volume] in Blood by Automated countOrdered By: Lisa Graham on 10-27-2023 Platelet mean volume (Bld) [Entitic vol] 9.3 fL Normal 6.3-10.7 [facility] Comment on above: Order Comment: Reaso n for Exam GERD (gastroesophageal reflux disease);Essential hypertensio Performed By: #### M Gagan, CMP, CBC ####[address] Platelets [#/volume] in Bloo d by Automated countOrdered By: Lisa Graham on 10-27-2023 Platelets (Bld) [#/Vol] 271 10*3/uL Normal 150-450 [facility] Comment on above: Order Comment: Reaso n for Exam GERD (gastroesophageal reflux disease);Essential hypertensio Performed By: #### M KB Calvo, CBC ####[place] [id number] [facility] Potassium [Moles/volume] in Serum or PlasmaOrdered By: Lisa Graham on 10-27-2023 Potassium [Moles/Vol] 4.0 mmol/L Normal 3.5-5.1 [facility] Comment on above: Order Comment: Reaso n for Exam GERD (gastroesophageal reflux disease);Essential hypertensio Performed By: #### M Gagan CMP, CBC ####[place] [id number] [facility] Protein [Mass/volume] in Ser um or PlasmaOrdered By: Lisa Graham on 10-27-2023 Protein [Mass/Vol] 6.2 g/dL Low 6.4-8.9 [facility] Comment on above: Order Comment: Reaso n for Exam GERD (gastroesophageal reflux disease);Essential hypertensio Performed By: #### M Gagan, CMP, CBC ####[place] [id number] [facility] Serum globulin measurement b y calculation (mass/volume)Ordered By: Lisa Graham on 10-27-2023 Globulin (S) [Mass/Vol] 1.9 g/dL [facility] Comment on above: Order Comment: Reaso n for Exam GERD (gastroesophageal reflux disease);Essential hypertensio Performed By: #### M KB Calvo, CBC ####[place] [id number] [place] [id number] [facility] Serum or plasma albumin/glob ulin mass ratioOrdered By: Lisa Graham on 10-27-2023 Albumin/Globulin [Mass ratio] 2.3 {ratio} [facility] Comment on above: Order Comment: Reaso n for Exam GERD (gastroesophageal reflux disease);Essential hypertensio Performed By: #### M Gagan, KB, CBC ####[address] Serum or plasma anion gap de terminationOrdered By: Lisa Graham on 10-27-2023 Anion gap [Moles/Vol] 14.2 mmol/L Normal 6.0-15.0 [facility] Comment on above: Order Comment: Reaso n for Exam GERD (gastroesophageal reflux disease);Essential hypertensio Performed By: #### Delon Calvo CMP, CBC ####[place] [id number] [facility] Sodium [Moles/volume] in Ser um or PlasmaOrdered By: Lisa Graham on 10-27-2023 Sodium [Moles/Vol] 143 mmol/L Normal 136-145 [facility] Comment on above: Order Comment: Reaso n for Exam GERD (gastroesophageal reflux disease);Essential hypertensio Performed By: #### Delon Calvo CMP, CBC ####[place] [id number] [facility] Urea nitrogen [Mass/volume] in Serum or PlasmaOrdered By: Lisa Graham on 10-27-2023 Urea nitrogen [Mass/Vol] 23 mg/dL Normal 7-25 [facility] Comment on above: Order Comment: Reaso n for Exam GERD (gastroesophageal reflux disease);Essential hypertensio Performed By: #### M Gagan, CMP, CBC ####[place] [id number] [facility] Office Visiton 09-06-2023 Follow-up visit [id number] Nataliya Everett 1950 F Date Provider Department Center 09/06/2023 Kyle-JULIOROYCEDAVIANMonyDEN CARD [place] No family history on file Level of Service:86787 NM OFFICE/OUTPATIENT ESTABLISHED LOW MDM 20 MIN Normal [facility] US carotid doppler BIon 11-2 US carotid doppler BI [facility] [address] Ultrasound Report Signed Patient: Kimberly Everett MR#: [id number] 529 : 1950 Acct:[id number] Age/Sex: 72 / F ADM Date: 07/05/23 Loc: Room: Type: [facility] Attending Dr: Lisa Graham DO Ordering Provider: Lisa Graham DO Date of Service: 07/05/23 US/US carotid doppler BI: Bruit of left carotid artery;Burst blood vessel of right eye Copies to: Lisa Graham DO CAROTID DUPLEX INDICATION: Carotid bruit PROCEDURE: Color-flow duplex scanning is used to interrogate the extracranial carotid arterial system, as well as both vertebral arteries. The proximal right internal carotid artery shows a highest peak systolic velocity of 92.5 cm/s with an end-diastolic velocity of 15.7 cm/s . The mid internal carotid artery measures 94.1 cm/s peak systolic with an end-diastolic velocity of 26.7 cm/s . The distal segment measures 117 cm/s peak systolic with an end diastolic velocity of 37.8 cm/s . The velocities of the right common carotid artery are 118 cm/s peak systolic and 13.9 cm/s end- diastolic proximally and 87.5 cm/s peak systolic and 19.9 cm/s end-diastolic distally. The peak systolic velocity ratio of the internal to the common carotid artery is 1.0 . The right external carotid artery measures 107 cm/s peak systolic. The right vertebral artery is patent at 68.5 cm/s peak systolic and with antegrade flow. The proximal left internal carotid artery shows a highest peak systolic velocity of 88.4 cm/s with an end-diastolic velocity of 25.1 cm/s . The mid internal carotid artery measures 89.2 cm/s peak systolic with an end-diastolic velocity of 27.7 cm/s . The distal segment measures 99.6 cm/s peak systolic with an end diastolic velocity of 32.9 cm/s . The velocities of the left common carotid artery are 168 cm/s peak systolic and 22 cm/s end-diastolic proximally and 95.1 cm/s peak systolic and 24.2 cm/s end-diastolic distally. The peak systolic velocity ratio of the internal to the common carotid artery is 0.6 . The left external carotid artery measures 124 cm/s peak systolic. The left vertebral artery is patent at 62.7 cm/s peak systolic with antegrade flow. Both lobes of the thyroid appear to be abnormal with heterogenous nodules. The largest solitary nodule is in the left measuring 1.6 x 1.1 x 1.3 cm US/US carotid doppler BI IMPRESSION: NO HEMODYNAMICALLY SIGNIFICANT STENOSIS OF EITHER EXTRACRANIAL INTERNAL CAROTID ARTERY. BOTH VERTEBRAL ARTERIES ARE PATENT WITH ANTEGRADE FLOW. Thyroid abnormality as described above. Formal thyroid ultrasound may be warranted. Impression dictated by: Osman Luevano M.D.07/06/2023 8:59 AM Dictation Location: [place] [address] Tech: Oliva Rainey Transcribed By: NAY 07/06/23858 Dictated By: Osman Luevano MD 07/06/23855 Signed By: 07/06/23858 Normal [facility] C reactive protein [Mass/vol ume] in Serum or PlasmaOrdered By: Lisa Graham on 03-31-2023 CRP [Mass/Vol] < 0.5 mg/dL 0.0-0.5 [facility] Erythrocyte sedimentation ra te by Photometric methodOrdered By: Lisa Graham on 03-31-2023 ESR Photometric method (Bld) [Velocity] 3 mm/hr 0-29 [facility] Office Visiton 03-12-2023 Follow-up visit [id number] Nataliya Everett 1950 F Date Provider Department Center 03/12/2023 120-CHAPINCITO, NICOLE BH CARD [facility] No family history on file Level of Service:47321 NM OFFICE/OUTPATIENT ESTABLISHED LOW MDM 20-29 MIN Normal [facility] Office Visiton 02-22-2023 Follow-up visit [id number] Nataliya Everett A 1950 F Date Provider Department Center 02/22/2023 EPIFANIO SUGGS [facility] No family history on file Level of Service:52147 NM OFFICE/OUTPATIENT ESTABLISHED MOD MDM 30-39 MIN Reason for Visit and Comments: Follow-up [770474] Normal [facility] Telephoneon 12-30-2022 Telephone [id number] Nataliya Everett A 1950 F Date Provider Department Center 12/30/2022 JAMIA ARCE [facility] Michelle Cazares. No family history on file Normal [facility] Office Visiton 12-28-2022 Follow-up visit [id number] Nataliya Everett A 1950 F Date Provider Department Center 12/28/2022 JAMIA ARCE [facility] No family history on file Level of Service:67972 NM OFFICE/OUTPATIENT ESTABLISHED MOD MDM 30-39 MIN Reason for Visit and Comments: Shortness of Breath [362784] Hypertension [098978] Normal [facility] XR HIP RT 2 3V W PELVISon XR HIP RT 2 3V W PELVIS EXAM: XR HIP RT 2 3V W PELVIS HISTORY: Pain after fall COMPARISON: None. TECHNIQUE: 3 views FINDINGS: No osseous lesion, fracture, dislocation or subluxation. Joint spaces are unremarkable for patient's age. Small enthesophytes off the tendinous insertions. No visualized effusion. No visualized soft tissue edema. IMPRESSION: No visualized acute abnormality Electronically authenticated by: FOSTER COLES Date: 2022-10-04 19:52 Normal [facility] XR KNEE LT 4V or >on 023 XR KNEE LT 4V or > EXAM: XR KNEE LT 4V or > HISTORY: Fall COMPARISON: None. TECHNIQUE: 4 views FINDINGS: No osseous lesion, fracture, dislocation or subluxation. Small osteophytes off the articular surfaces. Joint spaces are normal. No visualized effusion. No visualized soft tissue edema. IMPRESSION: Normal x-rays Electronically authenticated by: FOSTER COLES Date: 2022-10-04 19:54 Normal [facility] CBC AUTO DIFFon 07-07-2022 BASO # 0.1 103/ul Normal 0.0-0.1 [facility] Comment on above: Performed By: #### C BC #### [facility] [address] [place] [address] Dr. Marianna Ca Basophils/100 WBC (Bld) 0.9 % Normal 0.2-2.0 [facility] Comment on above: Performed By: #### C BC #### [facility] [address] [place] [address] Dr. Marianna Ca EO # 0.3 103/ul Normal 0.0-0.7 [facility] Comment on above: Performed By: #### C BC #### [facility] [address] [place] [address] Dr. Marianna Ca Eosinophils/100 WBC (Bld) 3.9 % Normal 0.9-7.0 [facility] Comment on above: Performed By: #### C BC #### [facility] [address] [place] [address] Dr. Marianna Ca Erythrocyte distribution width (RBC) [Ratio] 13.0 % Normal 11.0-15.0 [facility] Comment on above: Performed By: #### C BC #### [facility] [address] [place] [address] Dr. Marianna Ca Hematocrit (Bld) [Volume fraction] 39.9 % Normal 36.0-48.0 [facility] Comment on above: Performed By: #### C BC #### [facility] [address] [place] [address] Dr. Marianna Ca Hemoglobin (Bld) [Mass/Vol] 13.7 g/dL Normal 12.0-16.0 [facility] Comment on above: Performed By: #### C BC #### [facility] [address] [place] [address] Dr. Marianna Ca IG # 0.02 10e3/ul Normal 0.00-0.03 [facility] Comment on above: Performed By: #### C BC #### [facility] [address] [place] [address] Dr. Marianna Ca IG % 0.3 % Normal 0.0-0.5 [facility] Comment on above: Performed By: #### C BC #### [facility] [address] [place] [address] Dr. Marianna Ca LYMPH # 1.7 103/ul Normal 1.2-3.8 [facility] Comment on above: Performed By: #### C BC #### [facility] [address] [place] [address] Dr. Marianna Ca Lymphocytes/100 WBC (Bld) 25.2 % Normal 20.5-60.0 [facility] Comment on above: Performed By: #### C BC #### [facility] [address] [place] [address] Dr. Marianna Ca MANUAL DIFF REQ NO Normal [facility] Comment on above: Performed By: #### C BC #### [facility] [address] [place] [address] Dr. Marianna Ca MCH (RBC) [Entitic mass] 30.6 pg Normal 26.7-34.0 [facility] Comment on above: Performed By: #### C BC #### [facility] [address] [place] [address] Dr. Marianna Ca MCHC (RBC) [Mass/Vol] 34.3 g/dL Normal 29.9-35.2 [facility] Comment on above: Performed By: #### C BC #### [facility] [address] [place] [address] Dr. Marianna Ca MCV (RBC) [Entitic vol] 89.1 fL Normal 81.0-99.0 [facility] Comment on above: Performed By: #### C BC #### [facility] [address] [place] [address] Dr. Marianna Ca MONO # 0.5 103/ul Normal 0.3-0.8 [facility] Comment on above: Performed By: #### C BC #### [facility] [address] [place] [address] Dr. Marianna Ca Monocytes/100 WBC (Bld) 6.9 % Normal 1.7-12.0 [facility] Comment on above: Performed By: #### C BC #### [facility] [address] [place] [address] Dr. Marianna Ca NEUT # 4.2 103/ul Normal 1.4-6.5 [facility] Comment on above: Performed By: #### C BC #### [facility] [address] [place] [address] Dr. Marianna Ca Neutrophils/100 WBC (Bld) 62.8 % Normal 43.0-75.0 [facility] Comment on above: Performed By: #### C BC #### [facility] [address] [place] [address] Dr. Marianna Ca Platelet mean volume (Bld) [Entitic vol] 9.9 fL Normal 9.5-13.5 [facility] Comment on above: Performed By: #### C BC #### [facility] [address] [place] [address] Dr. Marianna Ca PLT 282 103/ul Normal 150-450 [facility] Comment on above: Performed By: #### C BC #### [facility] [address] [place] [address] Dr. Marianna Ca RBC 4.48 106/ul Normal 4.20-5.40 [facility] Comment on above: Performed By: #### C BC #### [facility] [address] [place] [address] Dr. Marianna Ca WBC 6.7 103/ul Normal 4.0-11.0 [facility] Comment on above: Performed By: #### C BC #### [facility] [address] [place] [address] Dr. Marianna Ca LIPID PROFILEon 07-07-2022 CHOL-HDL RATIO NORM SEE BELOW Normal [facility] Comment on above: Result Comment: 3.3 - 4.4 LOW RISK 4.4 - 7.1 AVERAGE RISK 7.1 - 11.0 MODERATE RISK >11.0 HIGH RISK Performed By: #### L IPID, TSH, CMP #### [facility] [address] [place] [address] [address] Marianna Ca Cholesterol [Mass/Vol] 156 mg/dL Normal <=200 [facility] Comment on above: Performed By: #### L IPID, TSH, CMP #### [facility] [address] [place] [address] [address] Marianna Ca Cholesterol in HDL [Mass/Vol] 60 mg/dL Normal 40-60 [facility] Comment on above: Performed By: #### L IPID, TSH, CMP #### [facility] [address] [place] [address] [address] Marianna Ca Cholesterol in LDL [Mass/Vol] 70.4 mg/dL Normal [facility] Comment on above: Performed By: #### L IPID, TSH, CMP #### [facility] [address] [place] [address] [address] Marianna Ca Cholesterol.total/Chol esterol in HDL [Mass ratio] 2.6 {ratio} Normal [facility] Comment on above: Performed By: #### L IPID, TSH, CMP #### [facility] [address] [place] [address] [address] Marianna Ca HDL NORMAL > or = 60 mg/dl - LO W CARDIOVASCULAR RISK <40 mg/dl - HIGH CARDIOVASCULAR RISK Normal [facility] Comment on above: Performed By: #### L IPID, TSH, CMP #### [facility] [address] [place] [address] [address] Marianna Ca LDL CALC NORMAL SEE BELOW Normal [facility] Comment on above: Result Comment: <100 mg/dl OPTIMAL 100 - 129 mg/dl NEAR OR ABOVE OPTIMAL 130 - 159 mg/dl BORDERLINE HIGH 160 - 189 mg/dl HIGH >190 mg/dl VERY HIGH Performed By: #### L IPID, TSH, CMP #### [facility] [address] [place] [address] [address] Marianna Ca Triglyceride [Mass/Vol] 128 mg/dL Normal <=150 [facility] Comment on above: Performed By: #### L IPID, TSH, CMP #### [facility] [address] [place] [address] [address] Marianna aC VLDL CALC 25.6 mg/dL Normal [facility] Comment on above: Performed By: #### L IPID, TSH, CMP #### [facility] [address] [place] [address] [address] Marianna Ca PROF 14(COMP METB)on 022 Albumin [Mass/Vol] 4.0 g/dL Normal 3.4-5.0 [facility] Comment on above: Performed By: #### L IPID, TSH, CMP #### [facility] [address] [place] [address] [address] Marianna Ca Albumin/Globulin [Mass ratio] 1.2 {ratio} Normal [facility] Comment on above: Performed By: #### L IPID, TSH, CMP #### [facility] [address] [place] [address] Dr. Marianna Ca ALP [Catalytic activity/Vol] 78 U/L Normal 46-116 [facility] Comment on above: Performed By: #### L IPID, TSH, CMP #### [facility] [address] [place] [address] Dr. Marianna Ca ALT [Catalytic activity/Vol] 17 U/L Normal 14-59 [facility] Comment on above: Performed By: #### L IPID, TSH, CMP #### [facility] [address] [place] [address] Dr. Marianna Ca Anion gap [Moles/Vol] 10.8 mmol/L Normal [facility] Comment on above: Performed By: #### L IPID, TSH, CMP #### [facility] [address] [address] [address] Marianna Ca AST [Catalytic activity/Vol] 16 U/L Normal 15-37 [facility] Comment on above: Performed By: #### L IPID, TSH, CMP #### [facility] [address] [place] [address] Dr. Marianna Ca Bilirubin [Mass/Vol] 0.3 mg/dL Normal 0.2-1.0 [facility] Comment on above: Performed By: #### L IPID, TSH, CMP #### [facility] [address] [place] [address] Dr. Marianna Ca Calcium [Mass/Vol] 9.4 mg/dL Normal 8.5-10.1 [facility] Comment on above: Performed By: #### L IPID, TSH, CMP #### [facility] [address] [place] [address] Dr. Marianna Ca Chloride [Moles/Vol] 106 mmol/L Normal 98-107 [facility] Comment on above: Performed By: #### L IPID, TSH, CMP #### [facility] [address] [place] [address] Dr. Marianna Ca CO2 [Moles/Vol] 27.9 mmol/L Normal 21.0-32.0 [facility] Comment on above: Performed By: #### L IPID, TSH, CMP #### [facility] [address] [place] [address] Dr. Marianna Ca Creatinine [Mass/Vol] 0.69 mg/dL Normal 0.55-1.02 [facility] Comment on above: Performed By: #### L IPID, TSH, CMP #### [facility] [address] [place] [address] Dr. Marianna Ca EGFR-AF KITTITIAN >60 Normal >=60 [facility] Comment on above: Performed By: #### L IPID, TSH, CMP #### [facility] [address] [place] [address] Dr. Marianna Ca EGFR-NON AF KITTITIAN >60 Normal >=60 [facility] Comment on above: Performed By: #### L IPID, TSH, CMP #### [facility] [address] [place] [address] Dr. Marianna Ca Globulin (S) [Mass/Vol] 3.4 g/dL Normal [facility] Comment on above: Performed By: #### L IPID, TSH, CMP #### [facility] [address] [place] [address] Dr. Marianna Ca Glucose [Mass/Vol] 101 mg/dL Normal 74-106 [facility] Comment on above: Performed By: #### L IPID, TSH, CMP #### [facility] [address] [place] [address] Dr. Marianna Ca Potassium [Moles/Vol] 3.7 mmol/L Normal 3.5-5.1 [facility] Comment on above: Performed By: #### L IPID, TSH, CMP #### [facility] [address] [place] [address] Dr. Marianna Ca Protein [Mass/Vol] 7.4 g/dL Normal 6.4-8.2 [facility] Comment on above: Performed By: #### L IPID, TSH, CMP #### [facility] [address] [place] [address] Dr. Marianna Ca Sodium [Moles/Vol] 141 mmol/L Normal 136-145 [facility] Comment on above: Performed By: #### L IPID, TSH, CMP #### [facility] [address] [place] [address] Dr. Marianna Ca Urea nitrogen [Mass/Vol] 21.0 mg/dL Critically high 7.0-18.0 [facility] Comment on above: Performed By: #### L IPID, TSH, CMP #### [facility] [address] [place] [address] Dr. Marianna Ca Urea nitrogen/Creatinine [Mass ratio] 30.4 mg/mg Normal [facility] Comment on above: Performed By: #### L IPID, TSH, CMP #### [facility] [address] [place] [address] Dr. Marianna Ca TSHon 07-07-2022 TSH 1.973 uIU/mL Normal 0.358-3.74 0 [facility] Comment on above: Performed By: #### L IPID, TSH, CMP #### [facility] [address] [place] [address] Dr. Marianna Ca ECHOCARDIO M/2D COMPLETEon 0 12-31-2021 ECHOCARDIO M/2D COMPLETE Patient: KIMBERLY EVERETT Exam Date: 12/31/2021 : 1950 Gender:F Ordering : JAMIA CAR Admission #: [id number] Family : Order #: [id number] CLICK HERE TO VIEW EXAM ECHOCARDIOGRAM REPORT PROCEDURE: CARDIO PULMONARY ECHOCARDIO M/2D COMP INDICATIONS: Shortness of breath, hypertension, former smoker, h/o rheumatic fever COMPARISON: None. DESCRIPTION: COMPLETE ECHOCARDIOGRAM Real-time transthoracic echocardiography with 2D, M-mode, spectral and color flow Doppler performed. QUALITY: Technical quality was adequate. LEFT VENTRICLE: Normal chamber size. Systolic function is hyperdynamic. There is mild acceleration of flow across the left ventricular outflow tract related to hyperdynamic contractility of the ventricle. The gradient with Valsalva maneuver 19 mmHg. LV EF: Hyperdynamic left ventricular ejection fraction, (75%). DIASTOLIC: Normal diastolic function. ATRIAL SEPTUM: LEFT ATRIUM: Normal chamber size. RIGHT ATRIUM: Normal chamber size. RIGHT VENTRICLE: Normal chamber size. Normal right ventricular systolic function. TRICUSPID VALVE: Normal mobility and thickness. No stenosis with trivial regurgitation. MITRAL VALVE: Normal mobility and thickness. No evidence of mitral valve stenosis. No mitral regurgitation. Moderate posterior mitral annular calcification. AORTIC VALVE: Normal trileaflet appearance. No visible sclerosis. Normal leaflet mobility. No evidence of aortic valve stenosis. No aortic regurgitation. AORTIC ROOT: Normal diameter and appearance. PULMONIC VALVE: Normal thickness and mobility. No stenosis. Trivial regurgitation. PERICARDIUM: No evidence of pericardial effusion. IVC: Not well visualized. PLEURA: CONCLUSION: 1. Left ventricular systolic function is hyperdynamic. LVEF is 75%. There is mild acceleration of flow across the left ventricular outflow tract related to hyperdynamic contractility of the ventricle. Peak gradient with Valsalva maneuver is 19 mmHg. 2. Normal right ventricular size and systolic function. 3. No significant valvular dysfunction. 4. No pericardial effusion. Adult Echocardiography Procedure Report Left Ventricle LVEDD (3.7 - 5.6 cm): 3.23 cm LVESD (2.2 - 4.0 cm): 2.02 cm LVIVS thickness (0.6 - 1.2 cm): 9.64 mm LVPW thickness (0.5 - 1.0 cm): 1.11 cm e': 9.65 cm/s E - e': 8.60 LVOT Area (cm2): 2.27 cm2 LVOT Diameter 1.70 cm Left Ventricular Ejection Fraction: 75 % Left Atrium Left Atrium Systolic Dimension: 3.90 cm Left Atrium Systolic Area(A4C): 12.00 cm2 Left Atrium Systolic Volume(A4C): 00122 mm3 Mitral Valve MV E to A Ratio: 0.60 Mitral Valve A-Wave Peak Velocity: 143.00 cm/s Mitral Valve E-Wave Peak Velocity: 83.40 cm/s Deceleration Time: 198 ms Right Ventricle Aorta AO Root Diam: 2.70 cm Aortic Valve AoV Area (Peak Jarvis): 2.19 cm2 Peak Velocity(Antegrade Flow): 119.00 cm/s Peak Gradient(Antegrade Flow): 6 mm[Hg] Tricuspid Valve Pulmonic Valve Peak Velocity: 113.00 cm/s Peak Gradient: 5 mm[Hg] Right Atrium Dictated by: Dolores Castaneda M.D. on 01/01/2022 at 13:19 Approved by: Dolores Castaneda M.D. on 01/01/2022 at 13:24 Normal [facility] BNPon 12-12-2021 Natriuretic peptide B (Bld) [Mass/Vol] 295.0 pg/mL Normal <=900.0 [facility] Comment on above: Performed By: #### B ASBESTOS SIDING MECHANIC, CMP #### [facility] [address] [place] [address] Dr. Marianna Ca PROF 14(COMP METB)on 022 Albumin [Mass/Vol] 4.1 g/dL Normal 3.4-5.0 [facility] Comment on above: Performed By: #### B ASBESTOS SIDING MECHANIC, CMP #### [facility] [address] [place] [address] Dr. Marianna Ca Albumin/Globulin [Mass ratio] 1.2 {ratio} Normal [facility] Comment on above: Performed By: #### B ASBESTOS SIDING MECHANIC, CMP #### [facility] [address] [place] [address] Dr. Marianna Ca ALP [Catalytic activity/Vol] 72 U/L Normal 46-116 [facility] Comment on above: Performed By: #### B ASBESTOS SIDING MECHANIC, CMP #### [facility] [address] [place] [address] Dr. Marianna Ca ALT [Catalytic activity/Vol] 21 U/L Normal 14-59 [facility] Comment on above: Performed By: #### B ASBESTOS SIDING MECHANIC, CMP #### [facility] [address] [place] [address] Dr. Marianna Ca Anion gap [Moles/Vol] 15.9 mmol/L Normal Th e [facility] Comment on above: Performed By: #### B ASBESTOS SIDING MECHANIC, CMP #### [facility] [address] [place] [address] Dr. Marianna Ca AST [Catalytic activity/Vol] 22 U/L Normal 15-37 [facility] Comment on above: Performed By: #### B ASBESTOS SIDING MECHANIC, CMP #### [facility] [address] [place] [address] Dr. Marianna Ca Bilirubin [Mass/Vol] 0.2 mg/dL Normal 0.2-1.0 [facility] Comment on above: Performed By: #### B ASBESTOS SIDING MECHANIC, CMP #### [facility] [address] [place] [address] Dr. Marianna Ca Calcium [Mass/Vol] 8.7 mg/dL Normal 8.5-10.1 [facility] Comment on above: Performed By: #### B ASBESTOS SIDING MECHANIC, CMP #### [facility] [address] [place] [address] Dr. Marianna Ca Chloride [Moles/Vol] 104 mmol/L Normal 98-107 [facility] Comment on above: Performed By: #### B ASBESTOS SIDING MECHANIC, CMP #### [facility] [address] [place] [address] Dr. Marianna Ca CO2 [Moles/Vol] 24.9 mmol/L Normal 21.0-32.0 [facility] Comment on above: Performed By: #### B ASBESTOS SIDING MECHANIC, CMP #### [facility] [address] [place] [address] Dr. Marianna Ca Creatinine [Mass/Vol] 0.88 mg/dL Normal 0.55-1.02 [facility] Comment on above: Performed By: #### B ASBESTOS SIDING MECHANIC, CMP #### [facility] [address] [place] [address] Dr. Marianna Ca EGFR-AF KITTITIAN >60 Normal >=60 [facility] Comment on above: Performed By: #### B ASBESTOS SIDING MECHANIC, CMP #### [facility] [address] [address] [address] Marianna Ca EGFR-NON AF KITTITIAN >60 Normal >=60 [facility] Comment on above: Performed By: #### B ASBESTOS SIDING MECHANIC, CMP #### [facility] [address] [address] [address] Marianna Ca Globulin (S) [Mass/Vol] 3.5 g/dL Normal [facility] Comment on above: Performed By: #### B ASBESTOS SIDING MECHANIC, CMP #### [facility] [address] [address] [address] Marianna Ca Glucose [Mass/Vol] 103 mg/dL Normal 74-106 [facility] Comment on above: Performed By: #### B ASBESTOS SIDING MECHANIC, CMP #### [facility] [address] [address] [address] Marianna Ca Potassium [Moles/Vol] 3.8 mmol/L Normal 3.5-5.1 [facility] Comment on above: Performed By: #### B ASBESTOS SIDING MECHANIC, CMP #### [facility] [address] [address] [address] Marianna Ca Protein [Mass/Vol] 7.6 g/dL Normal 6.4-8.2 [facility] Comment on above: Performed By: #### B ASBESTOS SIDING MECHANIC, CMP #### [facility] [address] [address] [address] Marianna Ca Sodium [Moles/Vol] 141 mmol/L Normal 136-145 [facility] Comment on above: Performed By: #### B ASBESTOS SIDING MECHANIC, CMP #### [facility] [address] [address] [address] Marianna Ca Urea nitrogen [Mass/Vol] 20.0 mg/dL Critically high 7.0-18.0 [facility] Comment on above: Performed By: #### B ASBESTOS SIDING MECHANIC, CMP #### [facility] [address] [address] [address] Marianna Ca Urea nitrogen/Creatinine [Mass ratio] 22.7 mg/mg Normal [facility] Comment on above: Performed By: #### B ASBESTOS SIDING MECHANIC, CMP #### [facility] [address] [place], [place] [address] Dr. Marianna Ca XR CHEST 2 Von 12-12-2021 XR CHEST 2 V EXAM: CHEST 2 VIEWS HISTORY: Dyspnea TECHNIQUE: PA and lateral views chest. COMPARISON: 08/01/2019 FINDINGS: There are low lung volumes. There is a small area of right perihilar atelectasis or scarring. Mild atelectasis at the left lung base also noted. There is no focal lung consolidation, pleural effusion or pneumothorax. Pulmonary vasculature is within normal limits. There is aortic atherosclerosis and normal heart size. IMPRESSION: 1. Expiratory chest with mild right perihilar to left basilar atelectasis. No consolidation or effusion. 2. Atherosclerosis and normal heart size. Negative for pulmonary edema. Electronically authenticated by: MINERVA HERRERA Date: 2021-12-12 12:13 Normal [facility] Cardiovascular Lab Reporton 08-18-2019 Cardiovascular Lab Report [facility] Patient Name: Karlos [facility] Tita MR #: [id number] Department of Physician: Claire Ward M.D. Division of Service Date: 08/17/2019 Cardiology Birthdate: 1950 Adult Cardiovascular Room #: 3AB [id number] [facility] [address] [address] Cardiovascular Laboratory Report FINAL IMPRESSIONS: 1. Mild coronary artery disease. 2. Moderately elevated right-sided heart pressures. 3. Mildly elevated pulmonary capillary wedge pressure. 4. Normal cardiac output/cardiac index. 5. Severe systemic hypertension. 6. Periprocedural supraventricular tachycardia, 2:1 AV block and intermittent left bundle-branch block. RECOMMENDATIONS: 1. The patient will undergo a complete echocardiogram as an outpatient. 2. A 30-day event monitor will be ordered. 3. Aggressive cardiovascular risk factor modification. 4. Optimization of medical management; aspirin, high-intensity statin therapy, and a beta-chela if tolerated given her lung disease are indicated. 5. Will increase her Cardizem to 240 mg daily. 6. She may benefit from referral to the EP service for possible EP study plus or minus ablation as appropriate. If there are any signs of significant bradyarrhythmias and advanced AV block, she may be a candidate for a permanent pacemaker. 7. Follow up with COLIN Dominguez in the next 2-4 weeks. 8. Follow up with Dr. Roblero as scheduled. PROCEDURES: Right heart catheterization, limited femoral angiography, bilateral selective coronary angiography, placement of a 6-Monegasque MynxGrip closure device. METHODS: After risks, benefits, and alternatives were explained, written informed consent was obtained. The patient was prepped and draped in usual sterile fashion over the right groin. Using 1% lidocaine solution, local infiltration anesthesia was achieved. Using a modified Seldinger technique and a micropuncture kit, access to the right common femoral vein and artery was obtained. A 6-Monegasque 11 cm sheath was placed in each. Limited femoral arterial angiography was performed via the side arm of the sheath. A Quiroz catheter was used for right heart catheterization measuring pressures in the right atrium, right ventricle, pulmonary artery, pulmonary capillary and pulmonary capillary wedge positions. Oxygen saturations were obtained and a cardiac output/cardiac index was calculated using the Carl principle. The Quiroz catheter was removed. Bilateral selective coronary angiography was subsequently performed using JL4 and a 3DRC catheter. After reviewing the images, it was elected to conclude the procedure. A 6-Monegasque MynxGrip closure device was deployed. However failed; therefore, manual pressure was held for hemostasis. Overall, the patient tolerated the procedure well. There were no overt complications. She was to be transferred to the holding area in stable condition. FINDINGS: Hemodynamics: RA 5. RV 50/8, 10. PA 50/18 (26). PCWP 18. TPG 8. AO 180/81. Cardiac output 6.3/cardiac index 3.65. LEFT VENTRICULOGRAPHY: This was not performed. Ejection fraction is noted to be normal by prior noninvasive imaging. CORONARY ARTERIES: Left main coronary artery. This arises from the left coronary cusp. It bifurcates into the left anterior descending and left circumflex coronary arteries. It trifurcate into the left anterior descending ramus intermedius and left circumflex coronary artery and is free of significant stenosis. Left anterior descending coronary artery. This shows calcific plaque with no high-grade stenosis. Ramus intermedius. This shows mild plaque. Left circumflex coronary artery. This shows minimal plaque with luminal irregularities. Right coronary artery. This has an upturning origin with 20% to 30% proximal stenosis. It is a dominant vessel, giving rise to the posterior descending and posterolateral branches. The posterior circulation is of small caliber. Limited femoral angiography: shows somewhat of a low access site and anatomy suitable for a closure device. INDICATIONS: Chest pain, shortness of breath, new left bundle branch block. Electronically Signed by: Den Key M.D. 08/22/2019 03:20 P Den Key M.D. Date Dict: 08/17/2019/03:45 P/Den Key M.D. Date Trans: 08/18/2019 01:09 A/imer [id number] cc: Nicole Beckham, MSN, HYDROELECTRIC OPERATOR-C [facility] [place] [address] [facility] [address] Den Key M.D. [address] [place] [id number] O[address]es [address] M[address]D. [address] [facility] [address] [address] Roblero [place] [facility] [place] [facility] Vital Signs Date Time Vital Sign Value Performing Clinician Elainei rubensy 06-29-2024 16:21-0500 Body height 154.9 cm Bartolo Ramírez MD Work Phone: [facility] 06-29-2024 16:21-0500 Body mass index (BMI) [Ratio] 28.34 kg/m2 Bartolo Ramírez MD Work Phone: [facility] 06-29-2024 [id number] Body weight 68.04 kg Bartolo Ramírez MD Work Phone: [facility] 05-01-2024 14:140400 Body height 154.94 cm DO Lisa Graham Work Phone: [facility] 05-01-2024 14:14-0400 Body mass index (BMI) [Ratio] 28.7 kg/m2 DO Lisa Gladys Work Phone: [facility] 05-01-2024 14:14-0400 Body weight 69 kg DO Lisa Gladys Work Phone: [facility] 04-24-2024 12:53-0400 Body height 154.94 cm DO Lisa Gladys Work Phone: [facility] 04-24-2024 12:53-0400 Body mass index (BMI) [Ratio] 28.9 kg/m2 DO Lisa Gladys Work Phone: [facility] 04-24-2024 12:53-0400 Body weight 69.42 kg DO Lisa Gladys Work Phone: [facility] 04-24-2024 12:53-0400 Diastolic blood pressure 76 mm[Hg] DO Lisa Gladys Work Phone: [facility] 04-24-2024 12:53-0400 Heart rate 78 /min DO Lisa Gladys Work Phone: [facility] 04-24-2024 12:53-0400 Respiratory rate 18 /min DO Lisa Gladys Work Phone: [facility] 04-24-2024 12:53-0400 SaO2% (BldA) [Mass fraction] 98 % DO Lisa Gladys Work Phone: [facility] 04-24-2024 12:53-0400 Systolic blood pressure 136 mm[Hg] DO Lisa Gladys Work Phone: [facility] 03-28-2024 13:12-0400 Body height 154.94 cm [facility] 03-28-2024 13:12-0400 Body mass index (BMI) [Ratio] 27.8 kg/m2 [facility] 03-28-2024 13:12-0400 Body weight 66.67 kg [facility] 03-28-2024 13:12-0400 Diastolic blood pressure 68 mm[Hg] [facility] 03-28-2024 13:12-0400 Heart rate 81 /min [facility] 03-28-2024 13:12-0400 Systolic blood pressure 124 mm[Hg] [facility] 01-13-2024 13:30-0400 Body height 154.94 cm DO Lisa Graham Work Phone: [facility] 01-13-2024 13:30-0400 Body mass index (BMI) [Ratio] 28.3 kg/m2 DO Lisa Graham Work Phone: [facility] 01-13-2024 13:30-0400 Body weight 68.03 kg DO Lisa Graham Work Phone: [facility] 01-13-2024 13:30-0400 Diastolic blood pressure 64 mm[Hg] DO Lisa Graham Work Phone: [facility] 01-13-2024 13:30-0400 Heart rate 102 /min DO Lisa Graham Work Phone: [facility] 01-13-2024 13:30-0400 SaO2% (BldA) [Mass fraction] 95 % DO Lisa Graham Work Phone: [facility] 01-13-2024 13:30-0400 Systolic blood pressure 118 mm[Hg] DO Lisa Graham Work Phone: [facility] 01-10-2024 13:04-0400 Body height 154.94 cm DO Lisa Graham Work Phone: [facility] 01-10-2024 13:04-0400 Body mass index (BMI) [Ratio] 28.5 kg/m2 DO Lisa Graham Work Phone: [facility] 01-10-2024 13:04-0400 Body temperature 98 [degF] DO Lisa Graham Work Phone: [facility] 01-10-2024 13:04-0400 Body weight 68.49 kg DO Lisa Gladys Work Phone: [facility] 01-10-2024 13:04-0400 Diastolic blood pressure 84 mm[Hg] DO Lisa Gladys Work Phone: [facility] 01-10-2024 13:04-0400 Heart rate 79 /min DO Lisa Gladys Work Phone: [facility] 01-10-2024 13:04-0400 Respiratory rate 20 /min DO Lisa Gladys Work Phone: [facility] 01-10-2024 13:04-0400 SaO2% (BldA) [Mass fraction] 97 % DO Lisa Gladys Work Phone: [facility] 01-10-2024 13:04-0400 Systolic blood pressure 131 mm[Hg] DO Lisa Gladys Work Phone: [facility] 11-29-2023 13:35-0400 Body height 154.94 cm DO Lisa Gladys Work Phone: [facility] 11-29-2023 13:35-0400 Body mass index (BMI) [Ratio] 28.5 kg/m2 DO Lisa Gladys Work Phone: [facility] 11-29-2023 13:35-0400 Body weight 68.49 kg DO Lisa Gladys Work Phone: [facility] 11-29-2023 13:35-0400 Diastolic blood pressure 78 mm[Hg] DO Lisa Gladys Work Phone: [facility] 11-29-2023 13:35-0400 Heart rate 84 /min DO Lisa Gladys Work Phone: [facility] 11-29-2023 13:35-0400 SaO2% (BldA) [Mass fraction] 96 % DO Lisa Gladys Work Phone: [facility] 11-29-2023 13:35-0400 Systolic blood pressure 110 mm[Hg] DO Lisa Gladys Work Phone: [facility] 11-03-2023 10:06-0400 Heart rate 42 /min DO Lisa Gladys Work Phone: [facility] 11-03-2023 10:06-0400 Respiratory rate 20 /min DO Lisa Gladys Work Phone: [facility] 11-03-2023 07:22-0400 Body temperature 97.6 [degF] DO Lisa Gladys Work Phone: [facility] 11-03-2023 07:22-0400 Diastolic blood pressure 67 mm[Hg] DO Lisa Gladys Work Phone: [facility] 11-03-2023 07:22-0400 SaO2% (BldA) [Mass fraction] 95 % DO Lisa Gladys Work Phone: [facility] 11-03-2023 07:22-0400 Systolic blood pressure 192 mm[Hg] DO Lisa Gladys Work Phone: [facility] 11-03-2023 06:00-0400 Body weight 68.6 kg DO Lisa Gladys Work Phone: [facility] 11-02-2023 15:08-0400 Body height 154.94 cm DO Lisa Gladys Work Phone: [facility] 11-02-2023 00:26-0400 Diastolic blood pressure 79 mm[Hg] DO Lisa Gladys Work Phone: [facility] 11-02-2023 00:26-0400 Heart rate 43 /min DO Lisa Gladys Work Phone: [facility] 11-02-2023 00:26-0400 Respiratory rate 18 /min DO Lisa Gladys Work Phone: [facility] 11-02-2023 00:26-0400 SaO2% (BldA) [Mass fraction] 94 % DO Lisa Gladys Work Phone: [facility] 11-02-2023 00:26-0400 Systolic blood pressure 178 mm[Hg] DO Lisa Gldays Work Phone: [facility] 11-01-2023 23:05-0400 Diastolic blood pressure 88 mm[Hg] DO Lisa Gladys Work Phone: [facility] 11-01-2023 23:05-0400 Heart rate 41 /min DO Lisa Gladys Work Phone: [facility] 11-01-2023 23:05-0400 Respiratory rate 22 /min DO Lisa Gladys Work Phone: [facility] 11-01-2023 23:05-0400 SaO2% (BldA) [Mass fraction] 94 % DO Lisa Gladys Work Phone: [facility] 11-01-2023 23:05-0400 Systolic blood pressure 176 mm[Hg] DO Lisa Gladys Work Phone: [facility] 11-01-2023 22:56-0400 Body temperature 97.6 [degF] DO Lisa Gladys Work Phone: [facility] 11-01-2023 19:00-0400 Body height 154.94 cm DO Lisa Gladys Work Phone: [facility] 11-01-2023 19:00-0400 Body weight 72.3 kg DO Lisa Gladys Work Phone: [facility] 11-01-2023 16:07-0400 Body height 156.21 cm DO Lisa Gladys Work Phone: [facility] 11-01-2023 16:07-0400 Body mass index (BMI) [Ratio] 30.2 kg/m2 DO Lisa Graham Work Phone: [facility] 11-01-2023 16:07-0400 Body weight 73.93 kg DO Lisa Graham Work Phone: [facility] 11-01-2023 16:07-0400 Diastolic blood pressure 70 mm[Hg] DO Lisa Graham Work Phone: [facility] 11-01-2023 16:07-0400 Heart rate 45 /min DO Lisa Graham Work Phone: [facility] 11-01-2023 16:07-0400 SaO2% (BldA) [Mass fraction] 98 % DO Lisa Graham Work Phone: [facility] 11-01-2023 16:07-0400 Systolic blood pressure 146 mm[Hg] DO Lisa Graham Work Phone: [facility] 10-27-2023 14:41-0400 Body height 156.21 cm [facility] 10-27-2023 14:41-0400 Body mass index (BMI) [Ratio] 30.2 kg/m2 [facility] 10-27-2023 14:41-0400 Body weight 73.93 kg [facility] 10-27-2023 14:41-0400 Diastolic blood pressure 68 mm[Hg] [facility] 10-27-2023 14:41-0400 Heart rate 44 /min [facility] 10-27-2023 14:41-0400 SaO2% (BldA) [Mass fraction] 98 % [facility] 10-27-2023 14:41-0400 Systolic blood pressure 138 mm[Hg] [facility] 07-20-2023 15:45-0500 Body height 156.21 cm Piyush Bo Other [facility] Other 07-20-2023 15:45-0500 Body mass index (BMI) [Ratio] 30.11 kg/m2 Piyush Vono Other [facility] Other 07-20-2023 15:45-0500 Body temperature 97.3 [degF] Piyush Vono Other [facility] Other 07-20-2023 15:45-0500 Body weight 73.48 kg Piyush Weemsdano Other [facility] Other 07-20-2023 15:45-0500 Diastolic blood pressure 74 mm[Hg] Piyush Weemsdano Other [facility] Other 07-20-2023 15:45-0500 Respiratory rate 20 /min Piyush Vono Other [facility] Other 07-20-2023 15:45-0500 SaO2% (BldA) [Mass fraction] 97 % Piyush Vono Other [facility] Other 07-20-2023 15:45-0500 Systolic blood pressure 139 mm[Hg] Piyush Weemsdano Other [facility] Other 07-14-2023 13:30-0500 Body height 156.21 cm Lisa Graham Other [facility] Other 07-14-2023 13:30-0500 Body mass index (BMI) [Ratio] 30.59 kg/m2 Lisa Graham Other [facility] Other 07-14-2023 13:30-0500 Body weight 74.66 kg Lisa Graham Other [facility] Other 07-14-2023 13:30-0500 Diastolic blood pressure 82 mm[Hg] Lisa Graham Other [facility] Other 07-14-2023 13:30-0500 Respiratory rate 20 /min Lisa Graham Other [facility] Other 07-14-2023 13:30-0500 SaO2% (BldA) [Mass fraction] 98 % Lisa Graham Other [facility] Other 07-14-2023 13:30-0500 Systolic blood pressure 128 mm[Hg] Lisa Graham Other [facility] Other 06-17-2023 13:30-0500 Body height 156.21 cm Lisa Graham Other [facility] Other 06-17-2023 13:30-0500 Body mass index (BMI) [Ratio] 30.48 kg/m2 Lisa Graham Other [facility] Other 06-17-2023 13:30-0500 Body temperature 98.4 [degF] Lisa Graham Other [facility] Other 06-17-2023 13:30-0500 Body weight 74.39 kg Lisa Graham Other [facility] Other 06-17-2023 13:30-0500 Diastolic blood pressure 74 mm[Hg] Lisa Graham Other [facility] Other 06-17-2023 13:30-0500 SaO2% (BldA) [Mass fraction] 94 % Lisa Graham Other [facility] Other 06-17-2023 13:30-0500 Systolic blood pressure 130 mm[Hg] Lisa Graham Other [facility] Other 03-31-2023 14:30-0400 Body height 156.21 cm Lisa Graham Other [facility] Other 03-31-2023 14:30-0400 Body mass index (BMI) [Ratio] 30.52 kg/m2 Lisa Graham Other [facility] Other 03-31-2023 14:30-0400 Body weight 74.48 kg Lisa Gladys Other [facility] Other 03-31-2023 14:30-0400 Diastolic blood pressure 76 mm[Hg] Lisa Gladys Other [facility] Other 03-31-2023 14:30-0400 Respiratory rate 20 /min Lisa Gladsy Other [facility] Other 03-31-2023 14:30-0400 SaO2% (BldA) [Mass fraction] 95 % Lisa Graham Other [facility] Other 03-31-2023 14:30-0400 Systolic blood pressure 128 mm[Hg] Lisa Graham Other [facility] Other 03-29-2023 13:00-0400 Body height 156.21 cm Marco Antonio Llamas Other [facility] Other 03-29-2023 13:00-0400 Body mass index (BMI) [Ratio] 30.3 kg/m2 Marco Antonio Reneerosy Other [facility] Other 03-29-2023 13:00-0400 Body weight 73.94 kg Marco Antonio Llamas Other [facility] Other 03-29-2023 13:00-0400 Diastolic blood pressure 69 mm[Hg] Marco Antonio Muriel Other [facility] Other 03-29-2023 13:00-0400 Systolic blood pressure 129 mm[Hg] Marco Antonio Muriel Other [facility] Other 01-11-2023 14:00-0400 Body height 156.21 cm Lisa Graham Other [facility] Other 01-11-2023 14:00-0400 Body mass index (BMI) [Ratio] 31.28 kg/m2 Lisa Graham Other [facility] Other 01-11-2023 14:00-0400 Body weight 76.34 kg Lisa Graham Other [facility] Other 01-11-2023 14:00-0400 Diastolic blood pressure 70 mm[Hg] Lisa Graham Other [facility] Other 01-11-2023 14:00-0400 Respiratory rate 20 /min Lisa Graham Other [facility] Other 01-11-2023 14:00-0400 SaO2% (BldA) [Mass fraction] 95 % Lisa Graham Other [facility] Other 01-11-2023 14:00-0400 Systolic blood pressure 134 mm[Hg] Lisa Graham Other [facility] Other 07-08-2022 14:00-0500 Body height 156.21 cm Madeline Duffy Other [facility] Other 07-08-2022 14:00-0500 Body mass index (BMI) [Ratio] 30.18 kg/m2 Madeline Duffy Other [facility] Other 07-08-2022 14:00-0500 Body weight 73.66 kg Madeline Duffy Other [facility] Other 07-08-2022 14:00-0500 Diastolic blood pressure 68 mm[Hg] Madeline Duffy Other [facility] Other 07-08-2022 14:00-0500 Respiratory rate 20 /min Madeline Duffy Other [facility] Other 07-08-2022 14:00-0500 SaO2% (BldA) [Mass fraction] 97 % Madeline Duffy Other [facility] Other 07-08-2022 14:00-0500 Systolic blood pressure 132 mm[Hg] Madeline Duffy Other [facility] Other 04-14-2022 14:45-0400 Body height 156.21 cm Piyush Bo Other [facility] Other 04-14-2022 14:45-0400 Body mass index (BMI) [Ratio] 30.85 kg/m2 Piyush Bo Other [facility] Other 04-14-2022 14:45-0400 Body temperature 97.3 [degF] Angelmaiker Betzy Other [facility] Other 04-14-2022 14:45-0400 Body weight 75.3 kg Christmaiker Betzy Other [facility] Other 04-14-2022 14:45-0400 Diastolic blood pressure 84 mm[Hg] Golder Betzy Other [facility] Other 04-14-2022 14:45-0400 Respiratory rate 20 /min Angelmaiker Betzy Other [facility] Other 04-14-2022 14:45-0400 SaO2% (BldA) [Mass fraction] 98 % Angelmaiker Betzy Other [facility] Other 04-14-2022 14:45-0400 Systolic blood pressure 164 mm[Hg] Golder Betzy Other [facility] Other 02-26-2022 11:00-0400 Body height 156.21 cm Lisa Graham Other [facility] Other 02-26-2022 11:00-0400 Body mass index (BMI) [Ratio] 31.11 kg/m2 Lisa Graham Other [facility] Other 02-26-2022 11:00-0400 Body weight 75.93 kg Lisa Graham Other [facility] Other 02-26-2022 11:00-0400 Diastolic blood pressure 78 mm[Hg] Lisa Graham Other [facility] Other 02-26-2022 11:00-0400 Respiratory rate 20 /min Lisa Wolffmer Other [facility] Other 02-26-2022 11:00-0400 SaO2% (BldA) [Mass fraction] 96 % Lisa Wolffmer Other [facility] Other 02-26-2022 11:00-0400 Systolic blood pressure 146 mm[Hg] Lisa Gladys Other [facility] Other 01-08-2022 12:30-0400 Body height 156.21 cm Piyush Bo Other [facility] Other 01-08-2022 12:30-0400 Body mass index (BMI) [Ratio] 31.04 kg/m2 Piyush Vono Other [facility] Other 01-08-2022 12:30-0400 Body temperature 96.1 [degF] Piyush Vono Other [facility] Other 01-08-2022 12:30-0400 Body weight 75.75 kg Piyush Weemsdano Other [facility] Other 01-08-2022 12:30-0400 Diastolic blood pressure 83 mm[Hg] Piyush Weemsdano Other [facility] Other 01-08-2022 12:30-0400 Respiratory rate 20 /min Piyush Weemsdano Other [facility] Other 01-08-2022 12:30-0400 SaO2% (BldA) [Mass fraction] 98 % Golder Betzy Other [facility] Other 01-08-2022 12:30-0400 Systolic blood pressure 161 mm[Hg] Godler Betzy Other [facility] Other 12-22-2021 14:00-0400 Body height 156.21 cm Golder Betzy Other [facility] Other 12-22-2021 14:00-0400 Body mass index (BMI) [Ratio] 30.85 kg/m2 Golder Betzy Other [facility] Other 12-22-2021 14:00-0400 Body temperature 97.6 [degF] Golder Betzy Other [facility] Other 12-22-2021 14:00-0400 Body weight 75.3 kg Golder Betzy Other [facility] Other 12-22-2021 14:00-0400 Diastolic blood pressure 81 mm[Hg] Golder Betzy Other [facility] Other 12-22-2021 14:00-0400 Respiratory rate 20 /min Christmaiker Betzy Other [facility] Other 12-22-2021 14:00-0400 SaO2% (BldA) [Mass fraction] 97 % Golder Betzy Other [facility] Other 12-22-2021 14:00-0400 Systolic blood pressure 161 mm[Hg] Christopher Betzy Other [facility] Other 12-18-2021 15:00-0400 Body height 156.21 cm Teto Veloz Other [facility] Other 12-18-2021 15:00-0400 Body mass index (BMI) [Ratio] 30.48 kg/m2 Teto Veloz Other [facility] Other 12-18-2021 15:00-0400 Body weight 74.39 kg Teto Veloz Other [facility] Other 12-18-2021 15:00-0400 Diastolic blood pressure 78 mm[Hg] Teto Veloz Other [facility] Other 12-18-2021 15:00-0400 Systolic blood pressure 133 mm[Hg] Teto Veloz Other [facility] Other 12-15-2021 14:30-0400 Body height 156.21 cm Lisa Graham Other [facility] Other 12-15-2021 14:30-0400 Body mass index (BMI) [Ratio] 30.74 kg/m2 Lisa Graham Other [facility] Other 12-15-2021 14:30-0400 Body weight 75.03 kg Lisa Graham Other [facility] Other 12-15-2021 14:30-0400 Diastolic blood pressure 80 mm[Hg] Lisa Graham Other [facility] Other 12-15-2021 14:30-0400 Respiratory rate 18 /min Lisa Gladys Other [facility] Other 12-15-2021 14:30-0400 SaO2% (BldA) [Mass fraction] 98 % Lisa Gladys Other [facility] Other 12-15-2021 14:30-0400 Systolic blood pressure 132 mm[Hg] Lisa Graham Other [facility] Other 10-09-2021 15:15-0500 Body height 156.21 cm Lisa Gladys Other [facility] Other 10-09-2021 15:15-0500 Body mass index (BMI) [Ratio] 31.04 kg/m2 Lisa Graham Other [facility] Other 10-09-2021 15:15-0500 Body temperature 98.4 [degF] Lisa Gladys Other [facility] Other 10-09-2021 15:15-0500 Body weight 75.75 kg Lisa Gladys Other [facility] Other 10-09-2021 15:15-0500 Diastolic blood pressure 78 mm[Hg] Lisa Graham Other [facility] Other 10-09-2021 15:15-0500 Respiratory rate 18 /min Lisa Graham Other [facility] Other 10-09-2021 15:15-0500 SaO2% (BldA) [Mass fraction] 96 % Lisa Graham Other [facility] Other 10-09-2021 15:15-0500 Systolic blood pressure 140 mm[Hg] Lisa Graham Other [facility] Other 06-25-2021 14:00-0500 Body height 156.21 cm Teto Veloz Other [facility] Other 06-25-2021 14:00-0500 Body mass index (BMI) [Ratio] 31.78 kg/m2 Teto Veloz Other [facility] Other 06-25-2021 14:00-0500 Body weight 77.57 kg Teto Veloz Other [facility] Other 06-23-2021 14:00-0500 Body height 156.21 cm Piyush Bo Other [facility] Other 06-23-2021 14:00-0500 Body mass index (BMI) [Ratio] 31.78 kg/m2 Piyush Bo Other [facility] Other 06-23-2021 14:00-0500 Body temperature 96.7 [degF] Golder Betzy Other [facility] Other 06-23-2021 14:00-0500 Body weight 77.57 kg Golder Betzy Other [facility] Other 06-23-2021 14:00-0500 Diastolic blood pressure 82 mm[Hg] Piyush Betzy Other [facility] Other 06-23-2021 14:00-0500 Respiratory rate 20 /min Golder Betzy Other [facility] Other 06-23-2021 14:00-0500 SaO2% (BldA) [Mass fraction] 98 % Piyush Bo Other [facility] Other 06-23-2021 14:00-0500 Systolic blood pressure 170 mm[Hg] Piyush Vono Other [facility] Other Encounters Encounter Date Encounter Type Care Provider Facility Start: 07-04-2024 End: 07-04-2024 Orders Only Garland Lockett MD Work Phone: Cardiology Comment on above: Primary hypertension (Primary Dx); High degree atrioventricular block; Mild coronary artery disease; Left bundle branch block (LBBB) on electrocardiogram; Symptomatic bradycardia; Chronic obstructive pulmonary disease, unspecified COPD type (HCC); KATELYN (obstructive sleep apnea); Chronic diastolic congestive heart failure (HCC) Start: 06-29-2024 End: 06-29-2024 [employer] flowsheet Bartolo Ramírez MD Work Phone: [facility] Start: 06-29-2024 End: 06-29-2024 BamM[employer]heet Bartolo Ramírez MD Work Phone: [facility] Start: 06-29-2024 End: 06-29-2024 Office outpatient visit 25 minutes Bartolo Ramírez MD Work Phone: [facility] Comment on above: Traumatic syrinx (CM S/HCC) (Primary Dx); Muscle spasm; Cervical radiculopathy Start: 06-29-2024 End: 06-29-2024 ambulatory BARTOLO RAMÍREZ Not Available Start: 06-27-2024 End: 06-27-2024 Orders Only Garland Lockett MD Work Phone: Cardiology Comment on above: Patient Update Start: 05-22-2024 End: 05-22-2024 ambulatory Madeline Duffy Facility:[facility] Start: 05-22-2024 End: 05-22-2024 Patient encounter procedure DO Lisa Graham Work Phone: [facility] Work Phone: Start: 05-01-2024 End: 05-01-2024 ambulatory DO Lisa Graham Work Phone: [facility] Work Phone: Start: 05-01-2024 End: 05-01-2024 Patient encounter procedure DO Lisa Graham Work Phone: [facility] Gastroenterology Work Phone: Start: 04-24-2024 End: 04-24-2024 ambulatory DO Lisa Graham Work Phone: [facility] Work Phone: Start: 04-24-2024 End: 04-24-2024 Patient encounter procedure DO Lisa Graham Work Phone: [facility] [place] Work Phone: Start: 04-21-2024 End: 04-21-2024 Orders Only Audi Tapia MD Work Phone: Cardiology Comment on above: Primary hypertension (Primary Dx) Start: 04-12-2024 End: 04-12-2024 ambulatory LISA LUISANA Not Available Start: 04-03-2024 End: 04-03-2024 ambulatory [facility] Start: 03-29-2024 End: 03-29-2024 ambulatory BARTOLO RAMÍREZ Not Available Start: 03-28-2024 End: 03-28-2024 ambulatory [facility] Work Phone: Start: 03-28-2024 End: 03-28-2024 Patient encounter procedure [facility] Gastroenterology Work Phone: Start: 03-10-2024 Telephone encounter Audi bynum MD Work Phone: Cardiology Comment on above: Appointment Start: 03-07-2024 Telephone encounter Audi bynum MD Work Phone: Cardiology Comment on above: Appointment Start: 02-04-2024 Non-patient / Non-visit [facility] [place] Work Phone: Start: 01-21-2024 End: 01-21-2024 ambulatory JR. DOLORES Kellie MARSHALLSTEFAN Not Available Start: 01-19-2024 Non-patient / Non-visit [facility] [place] Work Phone: Start: 01-13-2024 End: 01-13-2024 ambulatory DO Lisa Graham Work Phone: [facility] Work Phone: Start: 01-13-2024 End: 01-13-2024 Patient encounter procedure DO Lisa Graham Work Phone: [facility] [place] Work Phone: Start: 01-10-2024 End: 01-10-2024 ambulatory DO Lisa Victoriano WolffGladys Work Phone: [facility] Work Phone: Start: 01-10-2024 End: 01-10-2024 Patient encounter procedure DO Lisa Gladys Work Phone: [facility] Pulmonary Disease Work Phone: Start: 01-05-2024 Non-patient / Non-visit DO Chinedu ospina Gladys Work Phone: [facility] [place] Work Phone: Start: 12-16-2023 Follow-up encounter Garland pathak MD Work Phone: [facility] Department Start: 12-16-2023 End: 12-16-2023 Orders Only Audi Tapia MD Work Phone: Cardiology Comment on above: Primary hypertension (Primary Dx) Start: 12-16-2023 Patient encounter procedure Garland Lockett MD Work Phone: [facility] Start: 11-29-2023 End: 11-29-2023 ambulatory DO Lisa Graham Work Phone: [facility] Work Phone: Start: 11-29-2023 End: 11-29-2023 Patient encounter procedure DO Lisa Graham Work Phone: [facility] Family [facility] [place] Work Phone: Start: 11-18-2023 Telephone encounter Garland pathak MD Work Phone: Cardiology Comment on above: Courtesy call (Devic e survey) Start: 11-11-2023 Telephone encounter Anita Costa [facility] Comment on above: Post Dc Program Call - Needs Attn (Driving limitation question) Start: 11-09-2023 Telephone encounter Garland pathak MD Work Phone: Cardiology Comment on above: Patient Question (Zachary guardado had device implanted last Thrusday and she states having swelling. Wants to know, if it is okay to use ice pack. Please call her at [phone].) Start: 11-08-2023 Patient Outreach Foster arce Work Phone: Pharmacy Comment on above: Transition Of Care ( TCM Pharmacy-Hospital discharge 11/05/23 ) Follow Up Phone Call ( follow up call all clear. /) Start: 11-05-2023 End: 11-09-2023 Evaluation and management of inpatient LISA GRAHAM Facility:[facility] Start: 11-05-2023 End: 11-05-2023 Evaluation and management of inpatient LISA GRAHAM Facility:[facility] Start: 11-04-2023 End: 11-04-2023 Evaluation and management of inpatient LISA GRAHAM Facility:[facility] Start: 11-03-2023 End: 11-05-2023 Evaluation and management of inpatient GARLAND HERNANDEZMATHIEUGUSTAVO Facility:[facility] Start: 11-03-2023 End: 11-03-2023 Non-patient / Non-visit DO Lisa Graham Work Phone: [facility] Family [facility] [place] Work Phone: Start: 11-02-2023 End: 11-03-2023 Non-patient / Non-visit DO Lisa Graham Work Phone: [facility] Cardiology Work Phone: Start: 11-01-2023 End: 11-03-2023 Evaluation and management of inpatient DO Lisa Graham Work Phone: [facility] [place] [facility] Work Phone: Start: 11-01-2023 observation encounter DO Amor Graham Work Phone: [facility] Work Phone: Start: 11-01-2023 End: 11-01-2023 ambulatory DO Lisa Graham Work Phone: [facility] Work Phone: Start: 11-01-2023 End: 11-01-2023 Patient encounter procedure DO Lisa Graham Work Phone: [facility] [place] Work Phone: Start: 10-27-2023 End: 10-27-2023 Patient encounter procedure DO Lsia Graham Work Phone: [facility] [place] Work Phone: Start: 10-27-2023 End: 10-27-2023 ambulatory DO Lisa Graham Work Phone: [facility] Work Phone: Start: 10-27-2023 End: 10-27-2023 ambulatory [facility] Work Phone: Start: 10-27-2023 End: 10-27-2023 Patient encounter procedure [facility] Family Medicine [place] Work Phone: Start: 10-25-2023 End: 10-25-2023 ambulatory BARTOLO RAMÍREZ Not Available Start: 10-18-2023 End: 10-18-2023 ambulatory DOLORES HOLLINS Not Available Start: 10-11-2023 Non-patient / Non-visit [facility] Work Phone: Start: 09-23-2023 Bamboo flowsheet Lisa Kristen Rosalie er PA Work Phone: [facility] Start: 09-23-2023 Bamboo flowsheet Lisa Peterson Rosalie er PA Work Phone: [facility] Start: 09-23-2023 End: 09-23-2023 ambulatory LISA LIEBERMAN Not Available Start: 09-10-2023 Refill Bartolo costa MD Work Phone: [facility] Comment on above: Muscle spasm Start: 09-06-2023 End: 09-06-2023 ambulatory EHAB [facility] Start: 08-19-2023 End: 08-19-2023 ambulatory BARTOLO RAMÍREZ Not Available Start: 08-04-2023 End: 08-04-2023 ambulatory Marco Antonio Llamas Other [employer] Other Start: 08-04-2023 Telephone encounter Lisa Porras [facility] [place] Start: 07-20-2023 End: 07-20-2023 ambulatory Piyush Bo Other [employer] Other Start: 07-20-2023 Office outpatient vi sit 15 minutes Piyush Bo [facility] Start: 07-14-2023 End: 07-14-2023 ambulatory Lisa Graham Other [employer] Other Start: 07-14-2023 Encounter for genera l adult medical examination without abnormal findings Lisa Graham [facility] [place] Start: 07-14-2023 Patient encounter procedure Lisa Graham [facility] [place] Start: 07-06-2023 End: 07-06-2023 ambulatory Lisa Graham Other [facility] Other Start: 07-06-2023 Telephone encounter Lisa Porras [facility] Start: 07-05-2023 End: 07-05-2023 Patient encounter procedure DO Lisa Graham Work Phone: [facility]Ultrasound [place] Work Phone: Start: 07-05-2023 End: 07-05-2023 ambulatory DO Lisa Graham Work Phone: [facility] Work Phone: Start: 06-17-2023 End: 06-17-2023 ambulatory Lisa Graham Other [facility] Other Start: 06-17-2023 Office outpatient vi sit 15 minutes Lisa Graham [facility] [place] Start: 05-27-2023 Patient encounter status Fanny Ramírez MD Work Phone: [facility] Start: 05-25-2023 End: 05-25-2023 ambulatory Teto Veloz Other [facility] Other Start: 05-25-2023 Telephone encounter Teto Veloz [facility] Start: 05-18-2023 End: 05-18-2023 ambulatory Lisa Graham Other [facility] Other Start: 05-18-2023 Telephone encounter Lisa Porras [facility] Start: 05-14-2023 End: 05-14-2023 Patient encounter procedure DO Lisa Graham Work Phone: [facility] Work Phone: Start: 05-10-2023 End: 05-10-2023 ambulatory Lisa Graham Other [facility] Other Start: 05-10-2023 Telephone encounter Lisa Graham [facility] Start: 04-21-2023 End: 04-21-2023 ambulatory Marco Antonio Llamas Other [facility] Other Start: 04-21-2023 Telephone encounter Marco Antoino Porras [facility] Start: 04-02-2023 End: 04-02-2023 ambulatory Lisa Graham Other [employer] Other Start: 04-02-2023 Telephone encounter Lisa Porras [facility] Start: 03-31-2023 End: 03-31-2023 Patient encounter procedure DO iLsa Graham Work Phone: [facility]Lab [facility] Start: 03-31-2023 End: 03-31-2023 ambulatory DO Lisa Pastrana Gladys Work Phone: [facility] Work Phone: Start: 03-31-2023 Office outpatient vi sit 25 minutes Lisa Grahma [facility] Start: 03-29-2023 End: 03-29-2023 ambulatory Marco Antonio Llamas Other [facility] Other Start: 03-29-2023 Office outpatient vi sit 15 minutes Marco Antonio Llamas [facility] Gastroenterology Start: 03-12-2023 End: 03-12-2023 ambulatory NICOLE BECKHAM [facility] Start: 02-23-2023 End: 02-23-2023 ambulatory Mick Patterson Other [facility] Other Start: 02-23-2023 Telephone encounter Mick Patterson [facility] Start: 02-22-2023 End: 02-22-2023 ambulatory EPIFANIO LOZADA [facility] Start: 01-12-2023 End: 01-12-2023 ambulatory Piyush Bo Other [facility] Other Start: 01-12-2023 Telephone encounter Pritesh Bo [facility] Start: 01-11-2023 End: 01-11-2023 ambulatory Lisa Graham Other [facility] [employer] Other Start: 01-11-2023 Office outpatient vi sit 25 minutes Lisa Graham [facility] [place] Start: 12-28-2022 End: 12-28-2022 ambulatory JAMIA [facility] Start: 12-15-2022 End: 12-15-2022 ambulatory DO Lisa Graham Work Phone: [facility] Work Phone: Start: 12-15-2022 End: 12-15-2022 Patient encounter procedure DO Lisa Graham Work Phone: [facility]-CT [address] Work Phone: Start: 12-09-2022 Telephone encounter Lisa Porras [facility] [place] Start: 12-09-2022 End: 12-09-2022 ambulatory DO Lisa Graham Work Phone: [facility] Work Phone: Start: 12-09-2022 End: 12-09-2022 Patient encounter procedure DO Lisa Graham Work Phone: [facility] Start: 10-22-2022 End: 10-22-2022 ambulatory Lisa Graham Other [employer] Other Start: 10-22-2022 Telephone encounter Lisa Porras [facility] [place] Start: 10-04-2022 End: 10-04-2022 ambulatory FOSTER COLES Facility:[facility] Start: 08-11-2022 End: 08-11-2022 ambulatory Lisa Graham Other [facility] Other Start: 08-11-2022 Telephone encounter Lisa Porras [facility] [place] Start: 07-23-2022 End: 07-23-2022 ambulatory Lisa Graham Other [facility] Other Start: 07-23-2022 Telephone encounter Lisa Porras [facility] [place] Start: 07-13-2022 End: 07-13-2022 ambulatory Teto Veloz Other [facility] Other Start: 07-13-2022 Telephone encounter Teto HANCOCK [facility] Start: 07-10-2022 End: 07-10-2022 ambulatory Teto Veloz Other [facility] Other Start: 07-10-2022 Telephone encounter Teto HANCOCK [facility] Start: 07-08-2022 End: 07-08-2022 ambulatory Madeline Duffy Other [facility] Other Start: 07-08-2022 Office outpatient vi sit 15 minutes Madeline Duffy [facility] [place] Start: 07-07-2022 End: 07-08-2022 ambulatory LISA GRAHAM Facility:[facility] Start: 06-01-2022 End: 06-01-2022 ambulatory Madeline Duffy Other [facility] Other Start: 06-01-2022 Telephone encounter Madeline HANCOCK [facility] [place] Start: 05-25-2022 End: 05-25-2022 ambulatory Teto Veloz Other [facility] Other Start: 05-25-2022 Telephone encounter Teto Calvo [facility] Start: 04-29-2022 Telephone encounter [facility] Comment on above: Patient Question Start: 04-27-2022 End: 04-27-2022 ambulatory Madeline Duffy Other [facility] Other Start: 04-27-2022 Telephone encounter Madeline Calvo [facility] [place] Start: 04-14-2022 End: 04-14-2022 ambulatory Piyush Bo Other [facility] Other Start: 04-14-2022 Office outpatient vi sit 15 minutes Piyush Bo [facility] Start: 02-26-2022 End: 02-26-2022 ambulatory Lisa Graham Other [facility] Other Start: 02-26-2022 Encounter for other preprocedural examination Lisa Graham [facility] [place] Start: 02-26-2022 Office consultation new/estab patient 40 min Lisa Graham [facility] [place] Start: 02-25-2022 End: 02-25-2022 ambulatory Christmaiker Betzy Other [facility] Other Start: 02-25-2022 Telephone encounter Pritesh Bo [facility] Start: 02-16-2022 End: 02-16-2022 ambulatory Teto Veloz Other [facility] Other Start: 02-16-2022 Telephone encounter Teto Calvo [facility] Start: 01-21-2022 End: 01-21-2022 ambulatory Golder Betzy Other [facility] Other Start: 01-21-2022 Telephone encounter Pritesh r Betzy [facility] Start: 01-16-2022 End: 01-16-2022 ambulatory Lisa Graham Other [facility] Other Start: 01-16-2022 Telephone encounter Lisa Porras [facility] Start: 01-08-2022 End: 01-08-2022 ambulatory Piyush Weemsdano Other [facility] Other Start: 01-08-2022 Office outpatient vi sit 15 minutes Christandi Weemsdano [facility] Start: 01-07-2022 ambulatory LISA GRAHAM Facility :[facility] Start: 01-01-2022 End: 01-01-2022 ambulatory Lisa Graham Other [facility] Other Start: 01-01-2022 Telephone encounter Lisa Porras [facility] Start: 12-31-2021 End: 01-01-2022 ambulatory LISA GRAHAM Facility:[facility] Start: 12-22-2021 End: 12-22-2021 ambulatory Angelandi Weemsdano Other [facility] Other Start: 12-22-2021 Office outpatient vi sit 25 minutes Piyush Betzy [facility] Start: 12-18-2021 End: 12-18-2021 ambulatory Teto Veloz Other [facility] Other Start: 12-18-2021 Patient encounter procedure Teto Veloz [facility] Start: 12-15-2021 End: 12-15-2021 ambulatory Lisa Graham Other [facility] Other Start: 12-15-2021 Office outpatient vi sit 25 minutes Lisa Gladys [facility] Start: 12-12-2021 End: 12-13-2021 ambulatory JAMIA CAR Facility:[facility] Start: 12-04-2021 End: 12-04-2021 ambulatory Lisa Graham Other [facility] Other Start: 12-04-2021 Telephone encounter Lisa Porras [facility] [place] Start: 10-20-2021 End: 10-20-2021 ambulatory Teto Millery Other [facility] Other Start: 10-20-2021 Telephone encounter Teto HANCOCK [facility] Start: 10-09-2021 End: 10-09-2021 ambulatory Lisa Graham Other [facility] Other Start: 10-09-2021 Office outpatient vi sit 15 minutes Lisayair Graham [facility] [place] Start: 09-03-2021 End: 09-03-2021 ambulatory Lisa Graham Other [facility] Other Start: 09-03-2021 Telephone encounter Lisa Graham [facility] [place] Start: 07-18-2021 End: 07-18-2021 ambulatory Teto Millery Other [facility] Other Start: 07-18-2021 Telephone encounter Teto HANCOCK [facility] Start: 07-14-2021 End: 07-14-2021 ambulatory Lisa Graham Other [facility] Other Start: 07-14-2021 Telephone encounter Lisa Graham [facility] [place] Start: 07-07-2021 End: 07-07-2021 ambulatory Lisa Graham Other [facility] Other Start: 07-07-2021 Telephone encounter Lisa Graham [facility] [place] Start: 06-25-2021 End: 06-25-2021 ambulatory Teto Pauly Other [facility] Other Start: 06-25-2021 Patient encounter procedure Teto Veloz [facility] Start: 06-23-2021 End: 06-23-2021 ambulatory Goldsarah Betzy Other [facility] Other Start: 06-23-2021 Office outpatient vi sit 15 minutes Piyush Bo [facility] Start: 06-11-2021 End: 06-11-2021 ambulatory Lisa Graham Other [facility] Other Start: 06-11-2021 Telephone encounter Lisa Proras [facility] Start: 12-04-2013 Patient encounter status Janae sergey Millerey Work Phone: [facility] Work Phone: Procedures Date Procedure Procedure Detail Performing Clinician Start: 05-22-2024 Screening mammograph y of bilateral breasts DO Lisa Graham Work Phone: Start: 04-24-2024 Plain chest X-ray DO Marcus Graham Work Phone: Start: 04-03-2024 Follow-up visit Follow-up ANDREA DALEY Start: 12-16-2023 PACEMAKER CLINIC CHECK Garland Lockett MD Work Phone: Start: 11-03-2023 Antibody screen LISA GRAHAM Comment on above: Order Comment: Speci men Type: BLOOD SPECIMENOrdering Facility: [facility] Address: [address] [place] [address] Performed By: #### T SCR ####CC MAIN BLOOD BANKCLIA [id number] [address] [place] Start: 11-01-2023 Plain chest X-ray DO Marcus Graham Work Phone: Start: 05-14-2023 Screening mammograph y of bilateral breasts DO Lisa Graham Work Phone: Start: 12-15-2022 CT of chest without contrast DO Lisa Graham Work Phone: Start: 12-09-2022 Plain chest X-ray DO Marcus Graham Work Phone: Plan of Treatment Date Care Activity Detail Author Start: 11-04-2026 Diabetes Screening Diabetes Screening [facility] Start: 12-11-2024 End: 12-11-2024 Patient encounter procedure Cardiology Comment on above: DEVICE CHECK DX:High degree atrio ventricular block (11/03/2023) Start: 12-11-2024 End: 12-11-2024 ambulatory 12/11/2024 3:00 PM EDT Results Only Cardiology [address] [place] [address] EKG Cardiology Comment on above: EKG Start: 10-02-2024 End: 10-02-2024 Patient encounter procedure 10/02/2024 2:00 PM EST Office Visit [facility] [address] [address] Bartolo Ramírez MD [address] [facility] [address] [id number] [facility] Start: 09-04-2024 End: 09-04-2024 Patient encounter procedure 09/04/2024 2:15 PM EST Appointment Cardiology [address] [place] [address] Card eval Cardiology Comment on above: Card eval Start: 09-04-2024 End: 09-04-2024 Patient encounter procedure 09/04/2024 12:30 PM EST Office Visit Cardiology [address] [place] [address] Audi Tapia MD [address] [place], [place] [id number] Card eval Cardiology Comment on above: Card eval Start: 09-04-2024 End: 09-04-2024 ambulatory 09/04/2024 12:00 PM EST Results Only Cardiology [address] [place] [address] Card Eval Cardiology Comment on above: Card Eval Start: 07-19-2024 End: 07-19-2024 Patient encounter procedure 07/19/2024 1:00 PM EST Office Visit [facility] [address] [place] [address] Jr. Dolores Massey, DO [address] [facility] [address] [place] [address] [facility] Start: 06-29-2024 End: 06-29-2024 Patient encounter procedure 06/29/2024 2:00 PM EST Office Visit [facility] [address] [place] [address] Bartolo Ramírez MD [address] [facility] [address] [id number] Arrived [facility] Comment on above: Arrived Start: 05-08-2024 End: 05-08-2024 Patient encounter procedure Cardiology Comment on above: Card eval Start: 05-08-2024 End: 05-08-2024 ambulatory 05/08/2024 7:45 AM EDT Results Only Cardiology [address] [place] [address] Card eval Cardiology Comment on above: Card eval Start: 04-24-2024 Plain chest X-ray XR chest 2V* [facility] Start: 04-24-2024 XR Chest 2 Views [facility] Start: 04-09-2024 Covid-19 Vaccine ( season) Covid-19 Vaccine ( season) [facility] Start: 04-09-2024 Covid-19 Vaccine ( season) Covid-19 Vaccine ( season) [facility] Start: 04-09-2024 Influenza vaccination [facility] Start: 11-03-2023 [facility] Start: 11-02-2023 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 [facility] Start: 11-02-2023 Hospital admission [facility] Start: 11-01-2023 EKG 12 channel panel [facility] Start: 10-25-2023 End: 10-25-2023 Patient encounter procedure 10/25/2023 1:40 PM EDT Office Visit [facility] [address] [place] [address] Bartolo Ramírez MD [address] [place] [address] [place] [address] [id number] [facility] Start: 08-29-2023 Covid-19 Vaccine ( season) Covid-19 Vaccine () [facility] Start: 08-09-2023 Advance Directive Discussion Advance Directive Discussion [facility] Start: 08-09-2023 Behavioral Health Screening Behavioral Health Screening [facility] Start: 08-09-2023 Depression Assessment Depression Assessment [facility] Start: 07-05-2023 Doppler ultrasonography of bilateral carotid arteries US carotid doppler BI [facility] Start: 04-09-2022 Influenza vaccination INFLUENZA (#1) [facility] Start: 08-09-2021 ADVANCE DIRECTIVE DISCUSSION ADVANCE DIRECTIVE DISCUSSION [facility] Start: 08-09-2021 DEPRESSION ASSESSMENT DEPRESSION ASSESSMENT [facility] Start: 12-17-2018 DIABETES SCREEN DIABETES SCREEN [facility] Start: 11-13-2016 BONE DENSITY BONE DENSITY [facility] Start: 11-13-2016 Screening for osteoporosis Bone Density Screening [facility] Start: 04-09-2014 PNEUMOCOCCAL: 65+ (2 - PCV) PNEUMOCOCCAL: 65+ (2 - PCV) [facility] Start: 11-13-2001 SHINGRIX VACCINE (1 of 2) SHINGRIX VACCINE (1 of 2) [facility] Start: 11-13-1996 COLOGUARD (FIT-DNA) COLOGUARD (FIT-DNA) [facility] Start: 11-13-1996 Colonoscopy COLONOSCOPY [facility] Start: 11-13-1996 COLORECTAL CANCER SCREENING COLORECTAL CANCER SCREENING [facility] Start: 11-13-[address] COLONOGRAPHY [facility] Start: 11-13-1996 FECAL OCCULT BLOOD FECAL OCCULT BLOOD [facility] Start: 11-13-1996 Lipid panel Lipid Screening [facility] Start: 11-13-1996 LIPID SCREEN LIPID SCREEN [facility] Start: 11-13-1996 Screening for malignant neoplasm of colon [facility] Start: 11-13-1996 SIGMOIDOSCOPY SIGMOIDOSCOPY [facility] Start: 1991 Mammography MAMMOGRAM [facility] Start: 1991 Screening for malignant neoplasm of breast [facility] Start: 11-13-1981 Zoledronic acid therapy Alpha-1 Antitrypsin Deficiency Screening [facility] Start: 11-13-1970 Urine microalbumin profile [facility] Start: 11-13-1969 Annual PCP Team Chronic Disease Visit Annual PCP Team Chronic Disease Visit [facility] Start: 11-13-1969 Anxiety Screening Anxiety Screening [facility] Start: 11-13-1969 BP Controlled (<130/80) BP Controlled (<130/80) [facility] Start: 11-13-1969 Depression Screening Depression Screening [facility] Start: 11-13-1969 Hepatitis B surface antibody level LDL Cholesterol [facility] Start: 11-13-1969 HEPATITIS C SCREENING HEPATITIS C SCREENING [facility] Start: 11-13-1969 Hepatitis C screening Hepatitis C Screening [facility] Start: 11-13-1969 Spirometry Spirometry [facility] Start: 05-15-1952 COVID-19 VACCINE (#1) COVID-19 VACCINE (#1) [facility] Start: 1950 Screening for malignant neoplasm of colon [facility] metabo lic 2000 panel - Serum or Plasma [facility] End: 12-15-2024 ECG COMPLETE ECG COMPLETE ECG Routine Primary hypertension 1 Occurrences starting 12/16/2023 until 12/15/2024 [facility] Work Phone: Comment on above: 1 Occurrences starting 12/16/2023 until 12/15/2024 End: 04-21-2025 ECG COMPLETE ECG COMPLETE ECG Routine Primary hypertension 1 Occurrences starting 04/21/2024 until 04/21/2025 [facility] Work Phone: Comment on above: 1 Occurrences starting 04/21/2024 until 04/21/2025 End: 07-04-2025 ECG COMPLETE ECG COMPLETE ECG Routine Primary hypertension High degree atrioventricular block Mild coronary artery disease Left bundle branch block (LBBB) on electrocardiogram Symptomatic bradycardia Chronic obstructive pulmonary disease, unspecified COPD type (HCC) KATELYN (obstructive sleep apnea) Chronic diastolic congestive heart failure (HCC) 1 Occurrences starting 07/04/2024 until 07/04/2025 [facility] Work Phone: Comment on above: 1 Occurrences starting 07/04/2024 until 07/04/2025 MG Breast - bilatera l Screening [facility] Patient Education Heart Failure, Adult (D C) [facility] Work Phone: Patient referral [facility] Work Phone: [facility] Immunizations Immunization Date Immunization Notes Care Provider [facility] 04-22-2024 influenza virus vaccine, unspecified formulation Bartolo Ramírez MD Work Phone: [facility] 09-14-2023 RSV, preF3, adj, pf DO Amor Graham Work Phone: [facility] 04-29-2023 COVID-19 Vaccine Pfizer - Documentation Purposes Only Lisa Graham Other [facility] 04-16-2023 Flu Shot - Documentation Purposes Only Lisa Graham Other [facility] 04-16-2023 influenza virus vaccine, unspecified formulation Audi Tapia MD Work Phone: [facility] 04-28-2022 influenza, seasonal, injectable Madeline Duffy Other [facility] 04-28-2022 Influenza, High-dose Seasonal, Quadrivalent, Preservative Free Bartolo Ramírez MD Work Phone: [facility] 03-14-2022 COVID-19 Pfizer Madeline potts Other [facility] 03-14-2022 SARS-CoV-2, Unspecified Bartolo Ramírez MD Work Phone: [facility] 05-17-2021 COVID-19 Vaccine Pfizer - Documentation Purposes Only Angelandi Betzy Other [facility] 05-17-2021 SARS-CoV-2, Unspecified Bartolo Ramírez MD Work Phone: [facility] 04-20-2021 influenza, seasonal, injectable Lisa Graham Other [facility] 04-20-2021 Influenza, High-dose Seasonal, Quadrivalent, Preservative Free Bartolo Ramírez MD Work Phone: [facility] 10-15-2020 COVID-19 Vaccine Pfizer - Documentation Purposes Only Lisa Graham Other [facility] 10-15-2020 SARS-CoV-2, Unspecified Bartolo Ramírez MD Work Phone: [facility] 09-28-2020 SARS-CoV-2, Unspecified Bartolo Ramírez MD Work Phone: [facility] 09-28-2020 COVID-19 Vaccine Pfizer - Documentation Purposes Only Lisa Graham Other [facility] 05-08-2020 influenza, high dose seasonal, preservative-free Bartolo Ramírez MD Work Phone: [facility] 04-20-2020 influenza, high dose seasonal, preservative-free Lisa Graham Other [facility] [employer] Other 04-20-2020 influenza virus vaccine, unspecified formulation [facility] 02-01-2020 pneumococcal conjuga te vaccine, 13 valent Lisa Graham Other [facility] Other 02-01-2020 pneumococcal polysaccharide vaccine, 23 valent Lisa Graham Other [facility] Other 05-15-2019 influenza, injectabl e, quadrivalent, preservative free Lisa Graham Other [facility] 05-12-2019 influenza, injectabl e, quadrivalent, preservative free Bartolo Ramírez MD Work Phone: [facility] 05-11-2018 influenza, high dose seasonal, preservative-free Bartolo Ramírez MD Work Phone: [facility] 10-22-2017 pneumococcal conjuga te vaccine, 13 valent Madeline Duffy Other [facility] Other 04-29-2017 influenza, high dose seasonal, preservative-free Bartolo Ramírez MD Work Phone: [facility] 05-29-2014 seasonal influenza, intradermal, preservative free Bartolo Ramírez MD Work Phone: [facility] 04-09-2013 pneumococcal polysaccharide vaccine, 23 valent Madeline Hernandez Work Phone: [facility] Payers Date Payer Category Payer Medicare [id number] 2023 Unknown [facility] [employer] [employer] HMO [id number] 2023-Present [phone] [address] [place] [address] O [id number] 2023 Self-pay [id number] 2021 Medicare (Managed Care) [employer] [id number] 2015 [place] [id number] 2015-Present [phone] [address] [place] [address] Medicaid [id number] 2008 Medicare [id number]. [id number] 1959 Medicare [id number] 2.16.840.1.258811.19 1951 Unknown [id number] 2.16.840.1.102085.3.579.2. 593 1951 Unknown [id number] 2.16.840.1.989407.3.579.2. 593 1951 Unknown [id number] 2.16.840.1.415688.3.579.2. 593 1951 Unknown [id number] 2.16.840.1.474773.3.579.2. 593 1951 Unknown [id number] 2.16.840.1.422223.3.579.2. 593 1951 Unknown [id number] 2.16.840.1.959897.3.579.2. 1286 1951 Unknown [id number] 2.16.840.1.274027.3.579.2. 1259 1951 Unknown [id number] 2.16.840.1.703402.3.579.2. 1259 1951 Unknown [id number] 2.16.840.1.556938.3.579.2. 1259 1951 Unknown [id number] 2.16.840.1.766938.3.579.2. 1259 1951 Unknown [id number] 2.16.840.1.787524.3.579.2. 1258 1951 Unknown [id number] 2.16.840.1.603788.3.579.2. 9 1951 Unknown [id number] 2.16.840.1.046934.3.579.2. 1258 1951 Unknown [id number] 2.16.840.1.081150.3.579.2. 1258 1951 Unknown [id number] 2.16.840.1.961317.3.579.2. 1258 1951 Unknown [id number] 2.16.840.1.956798.3.579.2. 1259 Medicaid Medicaid [id number] Unknown [id number] 2.16.840.1.668737.3.579.2. 531 Unknown [id number] 2.16.840.1.694125.3.579.2. 531 Unknown [id number] 2.16.840.1.532884.3.579.2. 531 Unknown [id number] 2.16.840.1.392983.3.579.2. 531 Unknown [id number] 2.16.840.1.703949.3.579.2. 531 Unknown [id number] 2.16.840.1.005756.3.579.2. 531 Social History Date Type Detail Facility Unknown if ever smoked [facility] Other Start: 08-19-2023 End: 11-05-2023 Sex Assigned At [facility] Other Start: 12-18-2015 End: 11-02-2023 Tobacco smoking status NHIS Ex-smoker [facility] Start: 08-09-1982 End: 08-09-2000 History of tobacco use Current smoker [facility] Start: 08-09-1982 End: 08-09-2000 History of tobacco use Cigarette Smoker [facility] Start: 12-18-2015 End: 11-05-2023 Cigarettes smoked current (pack per day) - Reported 1 [facility] Start: 12-18-2015 End: 12-29-2022 Tobacco use and exposure Smokeless tobacco non-user [facility] Start: 09-09-2016 End: 11-04-2023 Alcohol intake Current non-drinker of alcohol (finding) [facility] Start: 1950 Sex Assigned At Not on file [facility] Start: 1950 Sex Assigned At Female F [facility] Start: 12-29-2022 Tobacco smoking stat us NHIS Never smoked tobacco [facility] Start: 08-19-2023 End: 06-29-2024 Alcohol intake Ex-drinker (finding) [facility] Start: 12-25-2022 Alcohol Comment caffeine: 1-2 cups per day [facility] National Score (1-10 0), lower number is lower risk 80 [facility] Medical Equipment Procedure Code Equipment Code Equipment Origin al Text Equipment Identifier Dates Mesh Srg Pariete x [id number] - [id number] Start: 12-19-2013 Mesh Tvt Prolene Blue 45x1.1cm Transvaginal Tape - [id number] Start: 01-13-2016 [id number] [employer] Mri Surescan [id number] Start: 11-04-2023 [id number] Caps urefix Novus [id number] Start: 11-04-[id number] Mri [id number] Start: 11-04-2023 Goals Date Patient Goal Desired Activity /State Personal health goal Functional Status Date Assessment Result Facility 11-03-2023 Functional status Patient at Baseline [facility] Work Phone: Mental Status Date Assessment Result Facility 11-03-2023 Cognitive function Cognitive Sta tus Patient at Baseline [facility] Work Phone: Clinical Notes 12-04-2013 to 06-29-2024 Bartolo Ramírez MD - 06/29/2024 2:00 PM ESTTelephone Encounter - Nel Bray RN - 06/27/2024 3:40 PM ESTTelephone Encounter - Nel Bray RN - 06/27/2024 3:40 PM EST Note Date & Type Note Facility 06-29-2024 History of Present illness Narrative Images from the original note were not included. CHIEF COMPLAINT REASON FOR VISIT : HPI: Kimberly Everett is a 73 y.o. female who presents for CURRENT MEDICATIONS: ALLERGIES/DISCONTINUE MEDICATIONS Current Outpatient Medications Medication Instructions albuterol HFA 90 mcg/act inhaler 2 puffs, Inhalation, Every 4 hours PRN amLODIPine (NORVASC) 5 mg, Every 24 hours aspirin 81 mg, Oral, Daily baclofen (Lioresal) 10 MG tablet TAKE 1 TABLET IN THE MORNING, AT NOON, IN THE EVENING, AND 1 BEFORE BEDTIME baclofen (LIORESAL) 5 mg, Oral, 2 times daily Biotin Maximum Strength 09943 MCG tablet TAKE 1 TABLET (10 MG) BY MOUTH IN THE MORNING AND BEFORE BEDTIME colestipol (Colestid) 1 g tablet Every 24 hours cycloSPORINE (Restasis) 0.05 % ophthalmic emulsion Every 12 hours dexAMETHasone (DECADRON) 2 mg, Oral, Daily dexAMETHasone (DECADRON) 2 mg, Oral, 2 times daily with meals Eliquis 5 mg, Oral, 2 times daily empagliflozin (Jardiance) 10 MG Daily Qhpztephttv-Ajfxkxdan-Vzarek (Trelegy Ellipta) 100-62.5-25 MCG/INH aerosol powder Trelegy Ellipta furosemide (LASIX) 40 mg, Oral, 2 times daily hyoscyamine (Levsin) 0.125 MG SL tablet DISSOLVE 1 TABLET UNDER TONGUE 4 TIMES A DAY NEEDED ipratropium (Atrovent) 0.03 % nasal spray 2 sprays, Each Nostril, Every 12 hours isosorbide mononitrate 20 mg, Oral, 2 times daily loperamide (IMODIUM) 2 mg, Oral, 4 times daily PRN losartan (COZAAR) 100 mg, Oral, Daily magnesium oxide (MAG-OX) 400 mg, Oral, Daily RT pantoprazole (PROTONIX) 40 mg, Oral, Every 24 hours potassium chloride CR (KLOR-CON) 10 MEQ ER tablet Every 12 hours spironolactone (ALDACTONE) 25 mg, Oral, Daily traZODone (Desyrel) 50 MG tablet TAKE 1 TABLET BY MOUTH EVERY DAY AT BEDTIME NEEDED FOR 90 DAYS Allergies Allergen Reactions Amoxicillin Unknown Aspirin Unknown Azithromycin Unknown Bacitracin Unknown Chlorhexidine Other Reaction(s): Rash Clavulanic Acid Other Reaction(s): Rash Clindamycin Unknown Cyproheptadine Cramping, muscle pain Latex Unknown Meloxicam Unknown Metronidazole Unknown Montelukast Other Reaction(s): Rash Neomycin Unknown Polymyxin B Unknown Sulfa Antibiotics Unknown and Hives Other Reaction(s): Hives Sulfamethoxazole-Trimethoprim Wound Dressing Adhesive Amoxicillin-Pot Clavulanate Rash Bacitracin-Polymyxin B Unknown and Rash There are no discontinued medications. PAST MEDICAL HISTORY: SURGICAL/SOCIAL/FAMILY HISTORY DEPRESSION SCREEN: Past Medical History: Diagnosis Date Acid reflux Anxiety Arthritis Bladder infection Cataract COPD (chronic obstructive pulmonary disease) (CMS/HCC) Cyst of left kidney Cyst, thyroid (CMS/HCC) Depression (CMS/HCC) Glaucoma (CMS/HCC) Hypertension (CMS/HCC) Shortness of breath Past Surgical History: Procedure Laterality Date BREAST BIOPSY BUNIONECTOMY Left 10/2016 fusion 2nd digit COLECTOMY COLONOSCOPY FOOT SURGERY HERNIA REPAIR x4 HYSTERECTOMY INSERT / REPLACE / REMOVE PACEMAKER 11/04/2023 DR CARTAGENA - [facility] KNEE SURGERY Arthroscopy knee NM SHOULDER SURG PROC UNLISTED Right :cyst right shoulder; TONSILLECTOMY VAGINAL DELIVERY x2 VAGINAL PROLAPSE REPAIR Social History Tobacco Use Smoking status: Never Smokeless tobacco: Never Substance Use Topics Alcohol use: Not Currently Comment: caffeine: 1-2 cups per day Drug use: Never Family History Problem Relation Name Age of Onset Breast cancer Mother Hypertension Mother Diabetes Father Hypertension Father Heart disease Father Hypertension Maternal Grandmother Diabetes Maternal Grandfather Stroke Maternal Grandfather Cancer Maternal Grandfather Hypertension Other MIGRATED FM: MOTHER Hyperlipidemia Other MIGRATED FM: MOTHER Depression: Not on file REVIEW OF SYMPTOMS: Review of Systems Constitutional: Negative for chills, diaphoresis, fatigue and fever. HENT: Negative for ear pain, tinnitus and trouble swallowing. Eyes: Negative for photophobia and visual disturbance. Respiratory: Negative for cough and shortness of breath. Cardiovascular: Negative for palpitations and leg swelling. Gastrointestinal: Negative for abdominal pain and nausea. Genitourinary: Negative for difficulty urinating and urgency. Musculoskeletal: Negative for arthralgias, back pain, myalgias, neck pain and neck stiffness. Neurological: Negative for tremors, weakness, light-headedness and numbness. Psychiatric/Behavioral: Negative for agitation, confusion and suicidal ideas. OBJECTIVE: 06/29/2024 4:21 PM 03/29/2024 1:06 PM 10/25/2023 1:51 PM Vitals BMI 28.34 kg/m2 28.34 kg/m2 30.42 kg/m2 BSA (m2) 1.71 m2 1.71 m2 1.77 m2 Systolic 142 Diastolic 78 Height (in) 5' 1 5' 1 Weight (lb) 150 150 161 Visit Report Report Report EXAM: Neurological Exam Mental Status Awake, alert and oriented to person, place and time. Oriented to person, place and time. Recent and remote memory are intact. Speech is normal. Language is fluent with no aphasia. Attention and concentration are normal. Cranial Nerves CN II: Visual acuity is normal. Visual flores full to confrontation. CN III, IV, : Extraocular movements intact bilaterally. Normal lids and orbits bilaterally. Pupils equal round and reactive to light bilaterally. CN V: Facial sensation is normal. CN VII: Full and symmetric facial movement. CN VIII: Hearing is normal. CN XII: Tongue midline without atrophy or fasciculations. Motor Normal muscle bulk throughout. Normal muscle tone. Right Left Wrist flexion 5 5 Wrist extension 5 5 Right Left Deltoid 5 5 Biceps 5 5 Triceps 5 5 Wrist flexor 5 5 Wrist extensor 5 5 Glutei 5 5 Iliopsoas 5 5 Quadriceps 5 5 Gastrocnemius 5 5 Anterior tibialis 5 5 Posterior tibialis 5 5 Sensory Light touch is normal in upper and lower extremities. Pinprick is normal in upper and lower extremities. Vibration is normal in upper and lower extremities. Reflexes Right Left Brachioradialis 2+ 2+ Biceps 2+ 2+ Patellar 2+ 2+ Achilles 2+ 2+ Right Plantar: downgoing Left Plantar: downgoing Right pathological reflexes: Dimitris's absent. Ankle clonus absent. Left pathological reflexes: Dimitris's absent. Ankle clonus absent. Coordination Evcuwc-pb-pdnf, rapid alternating movements and iktw-lm-nbqb normal bilaterally without dysmetria. Gait Normal casual, toe, heel and tandem gait. Romberg is absent. PROCEDURE: NONE ASSESSMENT AND PLAN: Kimberly Everett is a 73 year old female that presents with a sensory disturbance in the distal lower extremities manifested predominantly as numbness and paresthesia in her bilateral feet which have been progressive over the past 8 months, Possible etiologies would include a generalized process affecting large fibers such as peripheral neuropathy, lumbar radiculopathy, or lumbosacral plexopathy. I cannot exclude a small fiber neuropathy contributing to predominantly sensory symptoms in the lower extremities, I cannot exclude it medical condition or metabolic process contributing to peripheral nerve dysfunction including polyneuropathy. Diagnoses and all orders for this visit: Traumatic syrinx (CMS/HCC) Start dexAMETHasone (Decadron) 2 MG tablet; Take 1 tablet (2 mg) by mouth in the morning and 1 tablet (2 mg) in the evening. Take with meals. Do all this for 10 days for pain and inflammation. Muscle spasm Cervical radiculopathy Pregabalin 25 mg BID I counseled the patient on the possible side effects and interactions of medications. Follow up 3 months. documented in this encounter [facility] 06-27-2024 Telephone encounter Note Relayed to patient. Susan SERVIN [facility] 06-27-2024 Miscellaneous Notes Relayed to patient. Susan SERVIN June 27, 2024 Patient Contact No. [phone] Patient last seen: Visit date not found Patient has enough Eliquis for three days and would like a refill called in ([place], [place]). She also wants to know if she should continue taking aspirin with the Eliquis, as well as does she need to schedule a follow-up visit (has not been seen in the office since her device was placed in October). Physician: Garland Lockett MD documented in this encounter [facility] 06-27-2024 Telephone encounter Note June 27, 2024 Patient Contact No. [phone] Patient last seen: Visit date not found Patient has enough Eliquis for three days and would like a refill called in ([place], [place]). She also wants to know if she should continue taking aspirin with the Eliquis, as well as does she need to schedule a follow-up visit (has not been seen in the office since her device was placed in October). Physician: Garland Lockett MD [facility] 03-10-2024 Telephone encounter Note 2ND ATTEMPT PER CX/GAGAN LIST 05/08/2024 WILL BE UNAVAILABLE REACHED OUT TO PATIENT TO ASSIST WITH SCHEDULING SPOKE WITH PATIENT SHE OKAY'D NEW APPT DATE. [facility] 03-10-2024 Miscellaneous Notes 2ND ATTEMPT PER CX/GAGAN LIST 05/08/2024 WILL BE UNAVAILABLE REACHED OUT TO PATIENT TO ASSIST WITH SCHEDULING SPOKE WITH PATIENT SHE OKAY'D NEW APPT DATE. documented in this encounter [facility] 03-07-2024 Telephone encounter Note 1ST ATTEMPT PER CX/GAGAN LIST 05/08/2024 WILL BE UNAVAILABLE REACHED OUT TO PATIENT TO ASSIST WITH SCHEDULING, UNABLE TO REACH HER A VM WAS LEFT WITH CALL BACK NUMBER. [facility] 03-07-2024 Miscellaneous Notes 1ST ATTEMPT PER CX/GAGAN LIST 05/08/2024 WILL BE UNAVAILABLE REACHED OUT TO PATIENT TO ASSIST WITH SCHEDULING, UNABLE TO REACH HER A VM WAS LEFT WITH CALL BACK NUMBER. documented in this encounter [facility] 12-16-2023 Note Addended by: GARLAND LOCKETT on: 12/16/2023 03:58 PM Modules accepted: Orders [facility] 12-16-2023 Miscellaneous Notes Addended by: GARLAND LOCKETT on: 12/16/2023 03:58 PM Modules accepted: Orders Contacted patient who states she already has 'bleeding issues; when I get cut I bleed a lot'. Denies any life threatening bleeding, GI bleeding or intracranial bleeding. Open to taking eliquis for stroke protection. Requests script be sent to EROS Mack in chart. Susan SERVIN ----- Message from Garland Lockett MD sent at 12/16/2023 2:30 PM EDT ----- Regarding: RE: AF Thanks Teresa. Davis - can you please see if she is open to starting Eliquis? I have only met her once on the inpatient service but unless she knows of a compelling reason not to start A/C, then I am happy to prescribe this to her. Tx. Haque ----- Message ----- From: Dimple Hay RN Sent: 12/16/2023 2:22 PM EDT To: Nel Bray RN; Garland Lockett MD Subject: AF Hi! This patient had a PPM inserted 11/05/23. At time of insertion she was going to try to find an EP closer to home to follow with however she came back today for her 6 week f/u and has decided to stay with Dr Lockett. She did show AF on her device check. Longest episode was ~ 8hrs. She is not on anticoagulation. She said she has had some AF in the past and her other lead burner helper never did anything about it. Just a little FYI. I assisted her to make an general cards appt. On her way out today. She wants all of her care here now. I am going to get her set up with remotes also. DUAL LEAD PACEMAKER EVALUATION PRESENTS FOR: 4-6 week check PRESENTING EGM: /ELECTRONIC HEAT SEAL OPERATOR UNDERLYING RHYTHM: SR BATTERY STATUS: Estimated time remaining to CHANCE is 11.3 yrs. COUNTERS SINCE: 11/04/22 ATRIAL ARRHYTHMIAS: There were 23 triggered episodes of atrial high rates with EGMs showing AF. Longest lasting ~8 hrs. Total time 2.1%. Anticoagulants listed: None VENTRICULAR ARRHYTHMIAS: There have been no ventricular detections since the last evaluation. LEAD MEASUREMENTS: Capture and sensing are appropriate. The pacing outputs maintain safety margin. Review of the lead impedance trends are normal. IMPLANT SITE/ SYMPTOMS: The incision and pocket are pain-free (0/10), well healed and without signs of erosion or infection. No arm swelling, syncope, pre-syncope or device related pocket stimulation. OTHER DIAGNOSTICS: RA pacing 1.8%. RV pacing 97.1% PROGRAMMING CHANGES MADE TODAY: RA/RV amplitude adjusted based on testing today, Acute phases Off, Partial + On FOLLOW UP: Will enroll in CL and order Relay, schedule 1st remote. Assisted patient to schedule general Cards appt. Ronak Musa documented in this encounter [facility] 12-16-2023 Telephone encounter Note Contacted patient who states she already has 'bleeding issues; when I get cut I bleed a lot'. Denies any life threatening bleeding, GI bleeding or intracranial bleeding. Open to taking eliquis for stroke protection. Requests script be sent to [facility] [place] in chart. Susan SERVIN [facility] 12-16-2023 Telephone encounter Note ----- Message from Garland Lockett MD sent at 12/16/2023 2:30 PM EDT ----- Regarding: RE: AF Thanks Teresa. Davis - can you please see if she is open to starting Eliquis? I have only met her once on the inpatient service but unless she knows of a compelling reason not to start A/C, then I am happy to prescribe this to her. Juan JoseGinger Garland ----- Message ----- From: Dimple Hay RN Sent: 12/16/2023 2:22 PM EDT To: Nel Bray RN; Garland Lockett MD Subject: AF Hi! This patient had a PPM inserted 11/05/23. At time of insertion she was going to try to find an EP closer to home to follow with however she came back today for her 6 week f/u and has decided to stay with Dr Lockett. She did show AF on her device check. Longest episode was ~ 8hrs. She is not on anticoagulation. She said she has had some AF in the past and her other lead burner helper never did anything about it. Just a little FYI. I assisted her to make an Reppler appt. On her way out today. She wants all of her care here now. I am going to get her set up with remotes also. DUAL LEAD PACEMAKER EVALUATION PRESENTS FOR: 4-6 week check PRESENTING EGM: /ELECTRONIC HEAT SEAL OPERATOR UNDERLYING RHYTHM: SR BATTERY STATUS: Estimated time remaining to CHANCE is 11.3 yrs. COUNTERS SINCE: 11/04/22 ATRIAL ARRHYTHMIAS: There were 23 triggered episodes of atrial high rates with EGMs showing AF. Longest lasting ~8 hrs. Total time 2.1%. Anticoagulants listed: None VENTRICULAR ARRHYTHMIAS: There have been no ventricular detections since the last evaluation. LEAD MEASUREMENTS: Capture and sensing are appropriate. The pacing outputs maintain safety margin. Review of the lead impedance trends are normal. IMPLANT SITE/ SYMPTOMS: The incision and pocket are pain-free (0/10), well healed and without signs of erosion or infection. No arm swelling, syncope, pre-syncope or device related pocket stimulation. OTHER DIAGNOSTICS: RA pacing 1.8%. RV pacing 97.1% PROGRAMMING CHANGES MADE TODAY: RA/RV amplitude adjusted based on testing today, Acute phases Off, Partial + On FOLLOW UP: Will enroll in and order Relay, schedule 1st remote. Assisted patient to schedule [employer] appt. Ronak Musa [facility] 12-16-2023 Note DUAL LEAD PACEMAKER EVALUATION PRESENTS FOR: 4-6 week check PRESENTING EGM: /ELECTRONIC HEAT SEAL OPERATOR UNDERLYING RHYTHM: SR BATTERY STATUS: Estimated time remaining to CHANCE is 11.3 yrs. COUNTERS SINCE: 11/04/22 ATRIAL ARRHYTHMIAS: There were 23 triggered episodes of atrial high rates with EGMs showing AF. Longest lasting ~8 hrs. Total time 2.1%. Anticoagulants listed: None VENTRICULAR ARRHYTHMIAS: There have been no ventricular detections since the last evaluation. LEAD MEASUREMENTS: Capture and sensing are appropriate. The pacing outputs maintain safety margin. Review of the lead impedance trends are normal. IMPLANT SITE/ SYMPTOMS: The incision and pocket are pain-free (0/10), well healed and without signs of erosion or infection. No arm swelling, syncope, pre-syncope or device related pocket stimulation. OTHER DIAGNOSTICS: RA pacing 1.8%. RV pacing 97.1% PROGRAMMING CHANGES MADE TODAY: RA/RV amplitude adjusted based on testing today, Acute phases Off, Partial + On FOLLOW UP: Will enroll in CL and order Relay, schedule 1st remote. Assisted patient to schedule general Cards appt. Dimple Hay RN NOTE TO PROVIDERS: CARD Flowsheets contain detailed device programming and testing data. Paceart/Interrogation PDF can be found under CARDIAC DATA AND REPORT, Scanned Documents section. [facility] 11-18-2023 Miscellaneous Notes Post Implant follow up call: Date: 11/18/2023 Name: Kimberly Everett Is your incision: Red: No Open: No Swollen: No Draining: No Steri Strips: still intact If the device is an ICD, have you received any shocks: N/A Have you received your temporary or permanent ID card: Yes Do you have your f/u appointment: Yes Appointments for Next 60 Days Date Time Provider Location Dept Phone 12/16/2023 1:30 PM [facility] [phone] Any scheduling issues:No Questions moving forward: No Patient contacted at [phone] (home) Joy Núñez documented in this encounter [facility] 11-11-2023 Miscellaneous Notes We are calling to check on how you are doing since our last phone call. Are you having any medical concerns we can help you with today? -No new medical concerns today. Patient is not up to driving yet but she was wondering if someone can tell her how long she is not allowed to drive for. We reviewed her discharge packet, including activity and limitations and did not see the answer. Please advise. Call Outcome: Non urgent routing to EP pool Non urgent and closing statement given. PD RN verified patients name and date of . Anita Tena RN documented in this encounter [facility] 11-10-2023 Miscellaneous Notes Patient reports the swelling is the same (not getting worse). Denies fever, drainage or redness. She has some mild soreness/tightness at the site due to the swelling. Yes it is ok to use an ice pack, recommended no more than 15 minutes at a time and to keep a barrier between the pack and her skin. Reviewed infection symptoms, patient will call back if any concerns for infection or if swelling worsens. documented in this encounter [facility] 11-08-2023 Miscellaneous Notes 1. Have you noticed any increase in shortness of breath since you left the hospital? -No 2. Have you noticed any increased swelling in your feet , ankles, or stomach? (Skip for vascular pts) -No 3. Have you gained more than 2-3 pounds since discharge? (Skip for vascular & EP pts) -NA EP patient 4. Have you noticed any change in your incision or wound since you were discharged? (as we want you to be aware of any signs of infection) -No 5. Are you having any increased pain since discharge? If yes: What type of pain and where? (pressure, sharp pain, dull pain, etc.) -No 6. Have you had any unplanned trips to the emergency department or hospital since you were discharged? If yes - why? -No 7. Do you have any questions about your medications? -No 8. Were you able to fill all of the prescribed medications? -Yes 9. Do you have a doctor s appointment scheduled or is someone working on getting you a follow-up appointment? -Yes All clear and closing statement given. PD RN verified patients name and date of . Anita Tena RN documented in this encounter [facility] 11-08-2023 History of Present illness Narrative TRANSITION CARE MANAGEMENT (TCM) HEART FAILURE PHARMACY CONTACT Provider Action/FYI: TCM Medication Reconciliation completed for patient. See medication list table below for details. No further action required at this time Patient Workup: HF medication classes present on medication list: ZULY/ARB/ARNI YES - losartan Beta chela NO Aldosterone antagonist NO SGLT2i YES - empagliflozin Hydralazine/Isosorbide YES - isosorbide mononitrate ER Ivabradine NO Loop diuretics YES - furosemide Digoxin NO New HF medication class(es) added this admission: No (Patient to be counseled on new medications if full medication review completed) Last documented LVEF: LV Ejection Fraction (%) Date Value 11/03/2023 70 Last documented weight: Last Wt 11/03/23 69 kg (152 lb 1.9 oz) Patient was sent a message via [employer] including the link to the [facility] Heart Failure education video: No Initial contact with patient post discharge, spoke to patient, and verified that any applicable caregiver is active in patient's medical care. Patient identified by name and . Summary: -Pt discharged from [facility] on 11/05/23. -Medication review done Full medication review completed Patient Concerns: Patient states she resumed all of her medications she was taking prior to discharge. Patient verified current list is accurate. Patient has seasonal allergies and asked if it was ok to take allergy medication. Recommended loratadine 10mg once daily. ROS: Denies new or worsening shortness of breath at rest and on exertion (orthopnea, PND, bendopnea, wheezing/coughing). Denies new or worsening symptoms of edema (abdominal, early satiety, lower extremity, or abnormal weight gain). Denies new or worsening CP, palpitations, CARLTON, blurred vision. Denies new or worsening dizziness, lightheadedness, syncope. Denies new or worsening N/V, diarrhea, abdominal pain. Denies potential medication adverse effects. Red flag symptom(s) identified during call: No History of Present Illness: The following content has been copied and pasted from patient's discharge summary. If discharge summary unavailable, After Visit Summary or last pertinent inpatient notes are copied and pasted. Patient presented to [facility] on 11/01/23 following an office visit with her PCP Dr. Graham at which time she reported a 3 day history of constant chest/back pain radiating to bilateral arms associated with weakness, dizziness and headaches. EKG in the ED showed 2:1 AV block with LBBB with a heart rate 48 bpm. She was hypertensive with BP 211/85. Troponin was negative. Permanent pacemaker placement was recommended and patient requested transfer to [facility]. Hospital Course: The patient was transferred to the [facility] and admitted to the inpatient Electrophysiology service on 11/03/23. Telemetry showed persistent 2:1 AV block with heart rates 40s. There was intermittent LBBB conduction noted on telemetry. She was hypertensive initially with BP 198/84. She was given additional doses of home anti-hypertensives with improvement. TTE demonstrated LVEF 70% with systolic cavity obliteration with a resultant intracavitary gradient. The patient was taken to the EP lab and underwent implantation of dual-chamber permanent pacemaker with LBBAP lead on 11/04/23 ([employer]). On the following day, cardiac device interrogation demonstrated appropriate capture, sensing and lead impedances. Post-procedure chest xray was unremarkable with leads appropriately positioned in the right atrium and right ventricle. The patient was discharged home in stable condition. Medication Reconciliation: Legend: Stopped, New, Changed, Added to list Medication List Medication Directions Comments Action/Plan acetaminophen (TYLENOL) 500 mg tablet Take 2 tablets by mouth every 6 hours as needed for pain. PRN ALBUTEROL SULFATE (PROAIR HFA INHALATION) Inhale as instructed every 4 hours as needed. PRN amLODIPine (NORVASC) 5 mg tablet Take 5 mg by mouth once daily. Last 3 Encounter BP Readings: Date: BP: 11/02/2023 168/71 09/09/2016 146/85 02/18/2016 138/78 ascorbic acid, vitamin C, (VITAMIN C) 500 mg tablet Take 500 mg by mouth once daily. aspirin, enteric coated (ASPIRIN, ENTERIC COATED) 81 mg EC tablet Take 81 mg by mouth once daily. baclofen 5 mg tablet Take 10 mg by mouth three times a day. Takes 15 mg AM, 10 mg in afternoon and 15 mg PM Biotin 10,000 mcg cap Take 10,000 mcg by mouth once daily. calcium carbonate (CALCIUM 600) 600 mg calcium (1,500 mg) tab Take 600 mg by mouth once daily. CALCIUM CARBONATE (TUMS ORAL) Take 2 tablets by mouth as needed (indigestion). PRN Cholecalciferol, Vitamin D3, (VITAMIN D) 1,000 unit cap Take 1,000 Units by mouth once daily. colestipol (COLESTID) 1 gram tablet Take 1 g by mouth once daily. cyanocobalamin (VITAMIN B-12) 1,000 mcg tab Take 1,000 mcg by mouth once daily. cycloSPORINE (RESTASIS) 0.05 % ophthalmic emulsion Use 1 Drop in both eyes twice daily. empagliflozin (JARDIANCE) 10 mg tablet Take 10 mg by mouth daily with breakfast. bmkvfcytvpm-rublpfvis-mmetjfxh (TRELEGY ELLIPTA) 200-62.5-25 mcg inhalation powder Inhale 1 Puff as instructed once daily. furosemide (LASIX) 40 mg tablet Take 40 mg by mouth once daily. Last 3 Encounter BP Readings: Date: BP: 11/02/2023 168/71 09/09/2016 146/85 02/18/2016 138/78 Potassium Date Value Ref Range Status 11/05/2023 3.8 3.7 - 5.1 mmol/L Final hyoscyamine sublingual (LEVSIN SL) 0.125 mg Dissolve 0.125 mg under the tongue three times a day. Ipratropium [place] (ATROVENT) 21 mcg (0.03 %) nasal spray Use 2 Sprays in the nose once daily. isosorbide mononitrate ER (IMDUR) 60 mg 24 hr tablet Take 60 mg by mouth once daily. Last 3 Encounter BP Readings: Date: BP: 11/02/2023 168/71 09/09/2016 146/85 02/18/2016 138/78 loperamide (ANTI-DIARRHEAL) 2 mg cap(s) Take 2 mg by mouth once daily. Loratadine 10mg tablet Take 1 tablet by mouth once daily Added to medication list losartan (COZAAR) 100 mg tablet Take 100 mg by mouth once daily. Last 3 Encounter BP Readings: Date: BP: 11/02/2023 168/71 09/09/2016 146/85 02/18/2016 138/78 Potassium Date Value Ref Range Status 11/05/2023 3.8 3.7 - 5.1 mmol/L Final magnesium oxide (MAG-OX) 400 mg (241.3 mg magnesium) tablet Take 400 mg by mouth once daily. Magnesium Date Value Ref Range Status 11/05/2023 1.8 1.7 - 2.3 mg/dL Final MULTIVIT WITH IRON-MINERALS (MULTIVITAMIN AND MINERALS ORAL) Take 1 tablet by mouth once daily. pantoprazole DR (PROTONIX) 40 mg tablet Take 40 mg by mouth once daily. POTASSIUM CHLORIDE (KLOR-CON 10 ORAL) Take 10 mEq by mouth twice daily. Potassium Date Value Ref Range Status 11/05/2023 3.8 3.7 - 5.1 mmol/L Final traZODone (DESYREL) 50 mg tablet Take 50 mg by mouth daily at bedtime. Preferred pharmacy: [facility]/pharmacy #[id number] [place] [address] - [address] [place] [address] [place] [id number] Estimated Creatinine Clearance: 59.1 mL/min (based on SCr of 0.78 mg/dL). Estimated Glomerular Filtration Rate (mL/min/1.73m ) Date Value 11/05/2023 81 eGFR- (no units) Date Value 12/18/2015 53 Additional follow up: Next 5 Appointments Date and Time Provider Department Dept Phone 12/16/2023 1:30 PM [facility] [phone] Interventions Made: Patient education/Medication counseling Pharmacist Recommendations Made OTC medication recommendation Care Coordination: None at this time Time spent on patient: 30-45 minutes Foster Gutierrez RPh November 08, 2023 8:00 AM documented in this encounter [facility] 11-08-2023 Note HNO ID: [id number] Author: FOSTER GUTIERREZ [facility] Service: ? Author Type: Pharmacist Type: Progress Notes Filed: 11/08/2023 10:37 Note Text: TRANSITION CARE MANAGEMENT (TCM) HEART FAILURE PHARMACY CONTACT Provider Action/FYI: TCM Medication Reconciliation completed for patient. See medication list table below for details. No further action required at this time Patient Workup: HF medication classes present on medication list: ZULY/ARB/ARNI YES - losartan Beta chela NO Aldosterone antagonist NO SGLT2i YES - empagliflozin Hydralazine/Isosorbide YES - isosorbide mononitrate ER Ivabradine NO Loop diuretics YES - furosemide Digoxin NO New HF medication class(es) added this admission: No (Patient to be counseled on new medications if full medication review completed) Last documented LVEF: LV Ejection Fraction (%) Date Value 11/03/2023 70 Last documented weight: Last Wt 11/03/23 69 kg (152 lb 1.9 oz) Patient was sent a message via [employer] including the link to the [facility] Heart Failure education video: No Initial contact with patient post discharge, spoke to patient, and verified that any applicable caregiver is active in patient's medical care. Patient identified by name and . Summary: -Pt discharged from [facility] on 11/05/23. -Medication review done Full medication review completed Patient Concerns: Patient states she resumed all of her medications she was taking prior to discharge. Patient verified current list is accurate. Patient has seasonal allergies and asked if it was ok to take allergy medication. Recommended loratadine 10mg once daily. ROS: Denies new or worsening shortness of breath at rest and on exertion (orthopnea, PND, bendopnea, wheezing/coughing). Denies new or worsening symptoms of edema (abdominal, early satiety, lower extremity, or abnormal weight gain). Denies new or worsening CP, palpitations, CARLTON, blurred vision. Denies new or worsening dizziness, lightheadedness, syncope. Denies new or worsening N/V, diarrhea, abdominal pain. Denies potential medication adverse effects. Red flag symptom(s) identified during call: No History of Present Illness: The following content has been copied and pasted from patient's discharge summary. If discharge summary unavailable, After Visit Summary or last pertinent inpatient notes are copied and pasted. Patient presented to [facility] on 11/01/23 following an office visit with her PCP Dr. Graham at which time she reported a 3 day history of constant chest/back pain radiating to bilateral arms associated with weakness, dizziness and headaches. EKG in the ED showed 2:1 AV block with LBBB with a heart rate 48 bpm. She was hypertensive with BP 211/85. Troponin was negative. Permanent pacemaker placement was recommended and patient requested transfer to [facility]. Hospital Course: The patient was transferred to the [facility] and admitted to the inpatient Electrophysiology service on 11/03/23. Telemetry showed persistent 2:1 AV block with heart rates 40s. There was intermittent LBBB conduction noted on telemetry. She was hypertensive initially with BP 198/84. She was given additional doses of home anti-hypertensives with improvement. TTE demonstrated LVEF 70% with systolic cavity obliteration with a resultant intracavitary gradient. The patient was taken to the EP lab and underwent implantation of dual-chamber permanent pacemaker with LBBAP lead on 11/04/23 ([employer]). On the following day, cardiac device interrogation demonstrated appropriate capture, sensing and lead impedances. Post-procedure chest xray was unremarkable with leads appropriately positioned in the right atrium and right ventricle. The patient was discharged home in stable condition. Medication Reconciliation: Legend: Stopped, New, Changed, Added to list Medication List Medication Directions Comments Action/Plan acetaminophen (TYLENOL) 500 mg tablet Take 2 tablets by mouth every 6 hours as needed for pain. PRN ALBUTEROL SULFATE (PROAIR HFA INHALATION) Inhale as instructed every 4 hours as needed. PRN amLODIPine (NORVASC) 5 mg tablet Take 5 mg by mouth once daily. Last 3 Encounter BP Readings: Date: BP: 11/02/2023 168/71 09/09/2016 146/85 02/18/2016 138/78 ascorbic acid, vitamin C, (VITAMIN C) 500 mg tablet Take 500 mg by mouth once daily. aspirin, enteric coated (ASPIRIN, ENTERIC COATED) 81 mg EC tablet Take 81 mg by mouth once daily. baclofen 5 mg tablet Take 10 mg by mouth three times a day. Takes 15 mg AM, 10 mg in afternoon and 15 mg PM Biotin 10,000 mcg cap Take 10,000 mcg by mouth once daily. calcium carbonate (CALCIUM 600) 600 mg calcium (1,500 mg) tab Take 600 mg by mouth once daily. CALCIUM CARBONATE (TUMS ORAL) Take 2 tablets by mouth as needed (indigestion). PRN Cholecalciferol, Vitamin D3, (VITAMIN D) 1,000 unit cap Take 1,00 (more content not included)... [facility] 11-08-2023 Note Patient Outreach ( RXRF) KIMBERLY EVERETT ([id number]) 1950 F Date Time Provider Department 11/08/23 FOSTER GUTIERREZ [facility] During your visit today, we recorded the following information about you: oFster Gutierrez [facility] 11/08/2023 10:37 AM Signed TRANSITION CARE MANAGEMENT (TCM) HEART FAILURE PHARMACY CONTACT Provider Action/FYI: TCM Medication Reconciliation completed for patient. See medication list table below for details. No further action required at this time Patient Workup: HF medication classes present on medication list: ZULY/ARB/ARNI YES - losartan Beta chela NO Aldosterone antagonist NO SGLT2i YES - empagliflozin Hydralazine/Isosorbide YES - isosorbide mononitrate ER Ivabradine NO Loop diuretics YES - furosemide Digoxin NO New HF medication class(es) added this admission: No (Patient to be counseled on new medications if full medication review completed) Last documented LVEF: LV Ejection Fraction (%) Date Value 11/03/2023 70 Last documented weight: Last Wt 11/03/23 69 kg (152 lb 1.9 oz) Patient was sent a message via [employer] including the link to the [facility] Heart Failure education video: No Initial contact with patient post discharge, spoke to patient, and verified that any applicable caregiver is active in patient's medical care. Patient identified by name and . Summary: -Pt discharged from [facility] on 11/05/23. -Medication review done Full medication review completed Patient Concerns: Patient states she resumed all of her medications she was taking prior to discharge. Patient verified current list is accurate. Patient has seasonal allergies and asked if it was ok to take allergy medication. Recommended loratadine 10mg once daily. ROS: Denies new or worsening shortness of breath at rest and on exertion (orthopnea, PND, bendopnea, wheezing/coughing). Denies new or worsening symptoms of edema (abdominal, early satiety, lower extremity, or abnormal weight gain). Denies new or worsening CP, palpitations, CARLTON, blurred vision. Denies new or worsening dizziness, lightheadedness, syncope. Denies new or worsening N/V, diarrhea, abdominal pain. Denies potential medication adverse effects. Red flag symptom(s) identified during call: No History of Present Illness: The following content has been copied and pasted from patient's discharge summary. If discharge summary unavailable, After Visit Summary or last pertinent inpatient notes are copied and pasted. Patient presented to [facility] on 11/01/23 following an office visit with her PCP Dr. Graham at which time she reported a 3 day history of constant chest/back pain radiating to bilateral arms associated with weakness, dizziness and headaches. EKG in the ED showed 2:1 AV block with LBBB with a heart rate 48 bpm. She was hypertensive with BP 211/85. Troponin was negative. Permanent pacemaker placement was recommended and patient requested transfer to [facility]. Hospital Course: The patient was transferred to the [facility] and admitted to the inpatient Electrophysiology service on 11/03/23. Telemetry showed persistent 2:1 AV block with heart rates 40s. There was intermittent LBBB conduction noted on telemetry. She was hypertensive initially with BP 198/84. She was given additional doses of home anti-hypertensives with improvement. TTE demonstrated LVEF 70% with systolic cavity obliteration with a resultant intracavitary gradient. The patient was taken to the EP lab and underwent implantation of dual-chamber permanent pacemaker with LBBAP lead on 11/04/23 ([employer]). On the following day, cardiac device interrogation demonstrated appropriate capture, sensing and lead impedances. Post-procedure chest xray was unremarkable with leads appropriately positioned in the right atrium and right ventricle. The patient was discharged home in stable condition. Medication Reconciliation: Legend: Stopped, New, Changed, Added to list Medication List Medication Directions Comments Action/Plan acetaminophen (TYLENOL) 500 mg tablet Take 2 tablets by mouth every 6 hours as needed for pain. PRN ALBUTEROL SULFATE (PROAIR HFA INHALATION) Inhale as instructed every 4 hours as needed. PRN amLODIPine (NORVASC) 5 mg tablet Take 5 mg by mouth once daily. Last 3 Encounter BP Readings: Date: BP: 11/02/2023 168/71 09/09/2016 146/85 02/18/2016 138/78 ascorbic acid, vitamin C, (VITAMIN C) 500 mg tablet Take 500 mg by mouth once daily. aspirin, enteric coated (ASPIRIN, ENTERIC COATED) 81 mg EC tablet Take 81 mg by mouth once daily. baclofen 5 mg tablet Take 10 mg by mouth three times a day. Takes 15 mg AM, 10 mg in afternoon and 15 mg PM Biotin 10,000 mcg cap Take 10,000 mcg by mouth once daily. calcium carbonate (CALCIUM 600) 600 mg calcium (1,500 mg) tab Take 6 (more content not included)... [facility] 11-05-2023 Note HNO ID: [id number] Author: ?, ?, ? Service: Care Management Author Type: ? Type: Care Mgt Progress Note Filed: 11/05/2023 11:06 Note Text: CARE MANAGEMENT PROGRESS NOTE SERVICE DATE: 11/05/2023 SERVICE TIME: 10:30AM LOS: 2 days IMM Follow Up Copy Given: Yes Copy given to:: Patient Method: In Person SIGNATURE: Ambar Doherty PATIENT NAME: Kimberly Everett DATE: November 05, 2023 TIME: 11:06 AM PAGER/CONTACT #: [phone] [facility] 11-04-2023 Note HNO ID: [id number] Author: DESIRE PARMAR RN Service: Care Management Author Type: Registered Nurse Type: Care Mgt Initial Assessment Filed: 11/04/2023 12:27 Note Text: CARE MANAGEMENT: ASSESSMENT AND DISCHARGE PLAN SERVICE DATE: November 04, 2023 SERVICE TIME: 12:23 PM PCP: Lisa Graham DO Primary Contact: Extended Emergency Contact Information Primary Emergency Contact: Issa Everett Address: [address] [place] [id number] Mobile Relation: Spouse Secondary Emergency Contact: Tianna Friend Mobile Relation: Daughter Admission Status: Inpatient Insurance Provider: [employer] HMO Discharge Planning requested by: Per Department Practice Potential Transition Plans To Be Determined Advance Directives Current Advance Directive: None Crayon Sorting Machine Feeder Attempted to Assist with AD Completion: Yes Action: Education Provided Current Living Arrangements and Support Lives with: Spouse/significant other Type of Residence: Private Residence (House) Does the patient have to climb stairs at home?: Yes;stairs outside the home;stairs within the home (3-4 steps inot the home. Stair life to the next level) Support: Children, Family members, Spouse/significant other How do you manage to accomplish the following: Independent: Ambulation;Bathe/Shower;Dress;Me als/Meal Prep;Going to the bathroom;Medication Management Needs Assistance: Transportation to appointments/community (with night driving) Current Services/Equipment Current Post-Acute Service(s): None Discharge Planning Patient Goal(s): Be able to go home, General wellness, Increase strength Madison of Choice Explained: [place] of Choice Given: No Reason Not Given: Unable to complete with this assessment - revisit Discharge Planning Participant(s): Patient;Spouse/significant other;Children Patient/Family Comments: Caregiver Assessment: Caregiver is ready, willing and able to meet the patient's needs as recommended by the inter-professional team: Yes Name of Caregiver: Issa Everett (Spouse) [phone] Transport at Discharge: Transportation Arrangements: Car Destination: [address] [place] [address] Needs Prior to Discharge: Needs Prior to Discharge: To Be Determined Post-Acute Discharge Plan: This patient is a 72 yo female admitted 11/03/23 for high degree atrioventricular block. 6 CLICK SCORE 17, 94% NC 1 L. Independent with ADLs and needs assistance with night driving. Per the patient, currently not receiving home care. 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 Denies the use of oxygen, BiPAP or CPAP. Denies the use of DME's for ambulation. D/C date TBD. When discharged home the patient will be transported by family. WEEKEND CASE MANAGEMENT COVERAGE: Please see treatment team for care management weekend / holiday coverage. SIGNATURE: Desire Parmar RN PATIENT NAME: Kimberly Everett DATE: November 04, 2023 TIME: 12:23 PM CONTACT #: 12:23 PM [facility] 11-04-2023 Note HNO ID: [id number] Author: BRITTNEY MARTELL PA Service: Cardiovascular Medicine Author Type: Physician Network Operations Specialist Type: Progress Notes Filed: 11/04/2023 11:06 Note Text: [facility]ARD[facility]ULAR [facility]ICINE PROGRESS NOTE SERVICE DATE: 11/04/2023 PRIMARY SERVICE: HVI Electrophysiology HOSPITAL DAY: #1 INTERVAL HISTORY Remains in 2:1 AV block with heart rates 40s and intermittent LBBB conduction Hypertension improved following additional doses of home anti-hypertensives PHYSICAL EXAM BP 157/107 Pulse (!) 53 Temp 37 ?C (98.6 ?F) (Oral) Resp 18 Ht 155.6 cm (5' 1.26 ) Wt 69 kg (152 lb 1.9 oz) SpO2 94% BMI 28.50 kg/m? Intake/Output Summary (Last 24 hours) at 11/04/2023 1102 Last data filed at 11/04/2023 0618 Gross per 24 hour Intake 600 ml Output 900 ml Net -300 ml General Appearance: Well developed, no acute distress HEENT: PERRLA, good dentition Lungs: Unlabored, clear to auscultation bilaterally Heart: Bradycardiac, regular rhythm, no murmurs Vascular: Extremities well perfused, trace BLE edema, bilateral lower legs exquisitely tender to touch Abdomen: Soft, non-tender, non-distended, normoactive bowel sounds Skin: Warm and dry, no rash Musculoskeletal: No deformities Neurologic/Psychiatric: Alert and oriented, appropriate affect, no gross focal neurologic deficits MEDICATIONS Current Facility-Administered Medications Medication Dose Route Frequency acetaminophen 650 mg tab(s) (TYLENOL) 650 mg ORAL q 4 H PRN docusate sodium 100 mg cap(s) (COLACE) 100 mg ORAL BID PRN NaCl 0.9% iv flush bag 20 mL INTRAVENOUS PRN sodium chloride 0.9 % (flush) 2-10 mL (BD POSIFLUSH) 2-10 mL INTRAVENOUS DIRECTED PRN And perflutren lipid microspheres 1.1 mg/mL 1.3 mL injection (DEFINITY) 1.3 mL INTRAVENOUS DIRECTED PRN polyethylene glycol 3350 17 g packet 17 g ORAL DAILY PRN amLODIPine 5 mg tab(s) (NORVASC) 5 mg ORAL DAILY aspirin, enteric coated 81 mg tab(s) 81 mg ORAL DAILY baclofen 15 mg tab(s) 15 mg ORAL BID colestipol 1 g tab(s) (COLESTID) 1 g ORAL DAILY furosemide 40 mg tab(s) (LASIX) 40 mg ORAL DAILY hyoscyamine sublingual 0.125 mg tab(s) (LEVSIN SL) 0.125 mg SUBLINGUAL TID loperamide 2 mg cap(s) (IMODIUM) 2 mg ORAL DAILY magnesium oxide 400 mg tab(s) (MAG-OX) 400 mg ORAL DAILY pantoprazole DR 40 mg tab(s) (PROTONIX) 40 mg ORAL DAILY traZODone 50 mg tab(s) (DESYREL) 50 mg ORAL AT BEDTIME albuterol HFA 90 mcg/actuation 2 Puff (PROVENTIL HFA, VENTOLIN HFA) 2 Puff INHALATION q 4 H PRN baclofen 10 mg tab(s) 10 mg ORAL DAILY (1 PM) mometasone 220 mcg/ actuation (14) 2 Puff inhaler (ASMANEX) 2 Puff INHALATION BID And umeclidinium 62.5 mcg - vilanterol 25 mcg inhaler (ANORO ELLIPTA) 1 Inhalation INHALATION DAILY hydrALAZINE 25 mg tab(s) (APRESOLINE) 25 mg ORAL q 8 H PRN polyvinyl alcohol-povidone 1.4-0.6 % 1 Drop (REFRESH) 1 Drop BOTH EYES TID losartan 100 mg tab(s) (COZAAR) 100 mg ORAL BEFORE DINNER DAILY isosorbide mononitrate ER 60 mg tab(s) (IMDUR) 60 mg ORAL DAILY DATA: Diagnostic tests reviewed for today's visit: Most recent labs Most recent imaging- as noted below Most recent EKG Significant findings- as noted below LABS: Latest Ref Rng AND Units 11/04/2023 11/03/2023 12/18/2015 BMP Glucose 74 - 99 mg/dL 115 121 95 BUN 7 - 21 mg/dL 26 19 23 Creatinine 0.58 - 0.96 mg/dL 0.92 0.78 1.24 Sodium 136 - 144 mmol/L 139 141 142 Potassium 3.7 - 5.1 mmol/L 4.4 4.2 3.9 Chloride 97 - 105 mmol/L 105 106 101 CO2 22 - 30 mmol/L 21 21 23 Anion Gap 9 - 18 mmol/L 13 14 18 Calcium 8.5 - 10.2 mg/dL 9.7 9.9 9.3 EGFR >=60 mL/min/1.73m? 67 81 44 EGFR- 53 EGFR-All Other Races . 44 Magnesium (mg/dL) Date Value 11/04/2023 2.1 12/27/2013 1.6 Estimated Creatinine Clearance: 50.1 mL/min (based on SCr of 0.92 mg/dL). Medication and Non-Pharmacologic VTE Prophylaxis/Anticoagulants Anticoagulant AND Antiplatelet Medications (From admission, onward) Start Dose Route Frequency Last Action Ordered Stop 11/04/23 0900 aspirin, enteric coated 81 mg tab(s) 81 mg ORAL DAILY Given, 11/03 1045 11/03/23 1435 -- VTE Prophylaxis: Contraindicated pre-procedure ASSESSMENT AND PLAN HISTORY: Kimberly Everett is a 72 year old female with the following medical history: Chronic diastolic heart failure Mild CAD - last [facility] 08/17/19 Hypertension Pulmonary embolism (2007) previously on coumadin KATELYN not on CPAP COPD (previously on home oxygen) Former tobacco abuse GERD Cholecystectomy (2012) Multiple abdominal hernia surgical procedures Left kidney angiomyolipoma Syrinx of cervical spine Chronic fatigue Anxiety/depression CC/REASON FOR ADMISSION: 2nd degree 2:1 AV block Symptomatic bradycardia Patient presented to [facility] on 11/01/23 following an office visit with her PCP Dr. Graham at which time she reported a 3 day history of constant chest/back pain radiating to bilate (more content not included)... [facility] 11-04-2023 Note HNO ID: [id number] Author: JUAN ALBERTO DESAI, ? Service: Pharmacy Author Type: Lock Stitch Channeler Type: Plan of Care Filed: 11/04/2023 09:15 Note Text: Insurance investigation completed Patient has active prescription insurance: Yes - Patient's insurance is in-network with [facility] Insurance loaded into [place]: Yes Test claim was completed to verify insurance is active: Successful Any questions, please contact your medication rn access. Pager #: [phone] [facility] 11-03-2023 Discharge summary Note Date/Time November 03, 2023 7:43am [facility] [address] [place] [address] Discharge Summary Signed Patient: Kimberly Everett MR#: [id number] : 1950 Acct:[id number] Age/Sex: 72 / F Adm Date: 4 Loc: Room: 2S3922-[address]: Lisa Graham DO Copies to: Lisa Graham DO~ Providers Date of Discharge: 11/03/23 Discharging Provider: Lisa Graham Primary Care Provider: Lisa Graham Consults: 11/02/23 03:32 Consult to Cardiology Routine Comment: Consulting Provider: [facility] - Cardiology Reason For Exam: bradycardia and 2nd degree AV block Has Provider Been Notified: Yes Date of Notification: 11/02/23 Time of Notification: 04:05 Extended 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 Second-degree AV block, symptomatic 2. Bradycardia, symptomatic 3. Chest pain 4. Hypertension 5. Coronary disease Summary Hospital Course Hospital course: Patient was sent to the emergency room from the office due to newly diagnosed significant bradycardia that was symptomatic from a 2-1 heart block. Patient has been feeling poorly for several days and been having significant bradycardiainto the 30s and 40s. In the emergency room patient had a full workup without any acute coronary syndrome identified but given her symptoms and her cardiac arrhythmia it was determined she needed to be admitted for further evaluation. Cardiology was consulted and they evaluated the patient and determined that she should have pacemaker placement given her symptomatic bradycardia. Unfortunately we do not have many here at this hospital they can do pacemaker sothey contacted [facility] for transfer. [facility] excepted and patient was transferred on the second day of admission. On the day of dischargepatient was stable and doing well. She was still having intermittent chest pain. Her kidney function had improved. Her blood pressure was elevated and she was still having significant bradycardia. Cardiology feels the significant hypertension is related to compensation for the bradycardia. Patient was transferred to [facility] for definitive treatment in stable condition. Condition Condition at Discharge: Stable Status at Discharge Functional status at discharge: uses cane/walker Overall status at discharge: patient is not back to baseline Time Spent with Patient Time spent providing/coordinating discharge services (# min): 35 Diagnostic Studies Completed and Pending Studies Labs on day of discharge: 11/02/23 06:13: PHA Creatinine Clear 53.72, Sodium 142, Potassium 3.9, Chloride 111 H, Carbon Dioxide 24.1, Anion Gap 10.8, BUN 31 H, Creatinine 0.86, Est GFR (CKD-EPI) > 60.0, Glucose 114 H, Estimat Average Glucose 105, Hemoglobin A1c 5.3, Calcium 9.3, Magnesium 2.0, Triglycerides 162 H, Cholesterol 126 L, LDL Cholesterol, Calc 51, VLDL Cholesterol 32, HDL Cholesterol 43, Cholesterol/HDL Ratio 2.9 Exam Physical Exam Vital Signs: Temp Pulse Resp BP Pulse Ox O2 Del Method 97.6 F 41 L 24 192/67 H 95 Room Air 11/03/23 07:22 11/03/23 07:22 11/03/23 07:22 11/03/23 07:22 11/03/23 07:22 11/03/23 07:27 Const General: cooperative, comfortable and no acute distress Nutritional Appearance: average body habitus Orientation: alert, awake and oriented x3 HEENT Ears: hearing grossly normal bilaterally Mouth: moist mucous membranes Throat: posterior oropharynx normal Eyes EOM: EOM intact bilaterally Neck Carotids: no bruits Chest Chest palpation & inspection: tenderness pectoral muscle bilaterally Cardio Jugular venous pressure: no JVD Pulses: radial pulses present bilaterally 2+, posterior tibial pulses present bilaterally 2+ and dorsalis pedis present bilaterally 2+ Skin Wounds: no wounds Neuro Cognition: normal cognition Speech: speech normal Psych Mood: congruent mood Affect: normal affect Speech and Movement: speech and movement normal Attitude: cooperative Thought Process: normal Thought Content: normal Insight: insight good Judgment: judgment good Discharge Plan Discharge Plan Patient Disposition: Hospital Acute Care Other Activity: With Assist Diet: Low-Sodium Instructions: Heart Failure, Adult (DC) Prescriptions: Continued Jardiance 10 mg tablet 10 mg PO DAILY Qty: 90 1RF Trelegy Ellipta 200-62.5-25 mcg blister with device 1 inh inhalation DAILY potassium chloride 10 mEq capsule, extended release 10 meq PO DAILY cyclosporine [Restasis] 0.05 % dropperette 1 drp Eye-Both Q12HR isosorbide mononitrate 60 mg tablet extended release 24 hr 60 mg PO DAILY albuterol sulfate 90 mcg/actuation aerosol powdr breath activated 1 inh inhalation Q6HR furosemide [Lasix] 40 mg tablet 40 mg PO BID aspirin [Aspir-81] 81 mg Tablet,Delayed Release (Dr/Ec) 81 mg PO DAILY baclofen 10 mg Tablet 10 mg PO TID biotin 1,000 mcg Tablet,Chewable 1,000 mcg PO DAILY amlodipine 5 mg tablet 5 mg PO DAILY Rx Instructions: FreeTextSi tablet Orally Once a day; Note: Source Status: Taking; Refills: 1; Provider: Gladys Pastrana baclofen 5 mg tablet 5 mg PO DAILY Rx Instructions: FreeTextSi tablet as needed Orally Once a day; Note: Source Status: Taking; Provider: Dr Cordoba colestipol 1 gram tablet 1 g PO DAILY Rx Instructions: FreeTextSi tablets Orally Once a day; Note: Source Status: Taking; Refills: 11; Qty: 60 Tablet; Provider: Magdiel Irene hyoscyamine sulfate 0.125 mg tablet, sublingual 0.125 mg sublingual TID Rx Instructions: FreeTextSi tablet under the tongue and allow to dissolve as needed Sublingual qid; Note: Source Status: Taking; Refills: 5; Provider: Muriel Jernigan ipratropium bromide 21 mcg (0.03 %) spray,non-aerosol 2 spray intranasal DAILY Rx Instructions: FreeTextSi sprays in each nostril Nasally Once Daily; Note: Source Status: Taking; Refills: 3; Provider: Gladys Pastrana loperamide 2 mg capsule 2 mg PO DAILY PRN (Reason: diarrhea) Rx Instructions: FreeTextSi capsule as needed Orally ONCE A DAY; Note: Source Status: Taking; Refills: 6; Qty: 30 Capsule; Provider: Magdiel Peterson losartan 100 mg tablet 100 mg PO DAILY Rx Instructions: FreeTextSi tablet Orally Once a day; Note: Source Status: Taking; Refills: 1; Qty: 90 Tablet; Provider: Gladys Pastrana trazodone 50 mg tablet 1 tab PO QHS Rx Instructions: FreeTextSi tablet at bedtime as needed Orally Once a day; Note: Source Status: Taking; Refills: 1; Qty: 90 Tablet; Provider: Gladys Pastrana pantoprazole 40 mg tablet,delayed release (DR/EC) 40 mg PO DAILY 90 Days Qty: 90 1RF Rx Instructions: 1 tablet Orally Once a day Provider: Gladys Pastrana Follow Up: Lisa Graham DO [Primary Care Provider] - (Follow up in 7-10 days after D/C. Call for appt. ) Emmanuelle Tipton MD [Active Staff] - 11/25/23 9:00 am Documented By: Lisa Graham DO 11/03/23 074 0 Signed By: <Electronically signed by Lisa Graham DO> 11/03/23 0743 [facility] Work Phone: [phone]) 585-916603-26-2024 Consult note Author Emmanuelle Tipton [facility] November 02, 2023 5:06pm Note Date/Time November 02, 2023 2:5 6pm [facility] [address] [place] [address] Cardiology Consult Note Signed with Evan Patient: Kimberly Everett MR#: [id number] : 1950 Acct:[id number] Age/Sex: 72 / F Adm Date: 4 Loc: Room: [address] [place] [address] Type: ADM IN Attending Dr: Lisa Graham DO Copies to: MD Lisa Redman DO~ ADDENDUM1 Spoke to transfer center and she has been accepted to the EP service at [facility]. Addendum Documented By: Emmanuelle Tipton MD 11/02/231705 Addendum Signed By: <Electronically signed by Emmanuelle Tipton MD> 11/02/23 170 Cardiology HPI History of Present Illness Consult Date: 11/02/23 Reason for Consult: Bradycardia and second-degree AV block HPI: Ms. Everett is a 72 year old female with PMH significant for mild CAD, HFpEF, COPD, LBBB and HTN- has followed up in the past with Dr Key in [place]. She presented to [facility] [place]/2023 following an office visit with per PCP-Dr Graham. She c/o 3 day history of constant chest pain and back pain radiating to bilateral arms associated with weakness, dizziness and headaches. She had been seen a week prior with BLE edema and shortness of breath and was started on Jardiance and Lasix. On arrival to the ER, EKG showed sinus bradycardia and subsequent EKG showed 2:1AVB with LBBB with HR of 48bpm. She was hypertensive-211/85. Creatinine was slightly elevated 1.25. Troponin was negative; BNP mildly elevated at 230. She received ASA, clonidine, hydralazine and Nitroglycerine. BP has improved-currently 154/53 and she is currently chest pain free however continues to c/o dizziness. Remains in 2:1 AVB on telemetry. Reviewed last cardiology note from Dr Key on 09/06/2023: Pt c/o having intermittent chest pain and dyspnea with or without exertion during the visit. ECHO 02/11/2023: LVEF 55-60%; Normal diastolic function; mild MR, moderate MAC, mild TR, normal R sided pressures RVSP 28mmHg Last [facility] 08/17/2019 per report: Mild coronary artery disease; moderately elevated R sided pressures; mildly elevated PCWP, severe systemic hypertension, periprocedural supraventricular tachycardia, 2-1 AV block and intermittent left bundle branch block.Recommendation: ECHO; 30 day event monitor; optimization of medical management; EP referral for possible EP study She was started on Jardiance since that visit and she declines following up withDr Key and is currently seeking to establish care with a different lead burner helper. It is unclear whether EP referral was made. Review of Systems Review of Systems All other systems reviewed & are negative unless noted below or in HPI [facility] Medical History (Updated 11/02/23 @ 07:24 by Lisa Graham DO) Hypertension Surgical History History of bowel resection H/O hernia repair Family History Brother Family history of other condition Legacy FamHx Relation: Brother(s); Legacy FamHx Problem: prostate Father Heart disease Mother Cancer Legacy FamHx Problem: Diagnosed with Cancer Hypertension Sister Cancer Legacy FamHx Problem: Diagnosed with Cancer Other No significant family history Social History Smoking Status: Former smoker Tobacco Type: cigarettes Substance Use Type: None Meds Medications and Allergies Allergies amoxicillin [From Augmentin] Allergy (Unknown, Verified 11/01/23 17:29) Rash azithromycin Allergy (Unknown, Verified 11/01/23 17:29) Hives bacitracin Allergy (Unknown, Verified 11/01/23 17:29) Rash chlorhexidine [From Hibiclens] Allergy (Unknown, Verified 11/01/23 17:29) Rash clindamycin Allergy (Unknown, Verified 11/01/23 17:29) Hives latex Allergy (Unknown, Verified 11/01/23 17:29) Rash meloxicam [From Mobic] Allergy (Unknown, Verified 11/01/23 17:29) Rash metronidazole [From Flagyl] Allergy (Unknown, Verified 11/01/23 17:29) Rash neomycin [From Neosporin ([id number])] Allergy (Unknown, Verified 11/01/23 17:29) Rash polymyxin B [From Neosporin ([id number])] Allergy (Unknown, Verified 10/31/2416:29) Rash sulfacetamide Allergy (Unknown, Verified 11/01/23 17:29) Unknown Reaction clavulanic acid [From Augmentin] Allergy (Verified 11/01/23 17:29) Rash montelukast Allergy (Verified 11/01/23 17:29) Rash Sulfa (Sulfonamide Antibiotics) Allergy (Verified 11/01/23 17:29) Hives Home Medications aspirin 81 mg tablet,delayed release (Aspir-) 81 mg PO DAILY 09/30/18 [History Confirmed 11/01/23] baclofen 10 mg tablet 10 mg PO TID 09/30/18 [History Confirmed 11/01/23] biotin 1,000 mcg chewable tablet 1,000 mcg PO DAILY 09/30/18 [History Confirmed 11/01/23] pantoprazole 40 mg tablet,delayed release 40 mg PO DAILY 90 days #90 tabs 10/11/23 [Rx Confirmed 11/01/23] amlodipine 5 mg tablet 5 mg PO DAILY 10/26/23 [History Confirmed 11/01/23] baclofen 5 mg tablet 5 mg PO DAILY 10/26/23 [History Confirmed 11/01/23] colestipol 1 gram tablet 1 g PO DAILY 10/26/23 [History Confirmed 11/01/23] hyoscyamine sulfate 0.125 mg sublingual tablet 0.125 mg sublingual TID 10/26/23 [History Confirmed 11/01/23] ipratropium bromide 21 mcg (0.03 %) nasal spray 2 spray intranasal DAILY 10/26/23 [History Confirmed 11/01/23] loperamide 2 mg capsule 2 mg PO DAILY PRN diarrhea 10/26/23 [History Confirmed 11/01/23] losartan 100 mg tablet 100 mg PO DAILY 10/26/23 [History Confirmed 11/01/23] trazodone 50 mg tablet 1 tab PO QHS 10/26/23 [History Confirmed 11/01/23] empagliflozin 10 mg tablet (Jardiance) 10 mg PO DAILY #90 tabs 10/28/23 [Rx Confirmed 11/01/23] albuterol sulfate 90 mcg/actuation breath activated powder inhaler 1 inh inhalation Q6HR 11/01/23 [History Confirmed 11/01/23] cyclosporine 0.05 % eye drops in a dropperette (Restasis) 1 drp Eye-Both Q12HR 11/01/23 [History Confirmed 11/01/23] fluticasone fur. 200 mcg-umeclid 62.5 mcg-vilant 25 mcg inhalat.powder (Trelegy Ellipta) 1 inh inhalation DAILY 11/01/23 [History Confirmed 11/01/23] furosemide 40 mg tablet (Lasix) 40 mg PO BID 11/01/23 [History Confirmed 11/01/23] isosorbide mononitrate 60 mg tablet,extended release 24 hr 60 mg PO DAILY 11/01/23 [History Confirmed 11/01/23] potassium chloride 10 mEq capsule,extended release 10 meq PO DAILY 11/01/23 [History Confirmed 11/01/23] Exam Physical Exam Vital Signs: Temp Pulse Resp BP Pulse Ox O2 Del Method 98.0 F 46 L 20 154/53 H 90 L Room Air 11/02/23 12:00 11/02/23 12:00 11/02/23 12:00 11/02/23 12:00 11/02/23 12:00 11/02/23 12:00 Narrative: GEN: AAOx3. No acute distress. Neck: No JVD. Lungs: Clear to auscultation bilaterally Heart: Irregularly irregular; 4/6 systolic murmur throughout the precordium. Abdomen: Soft, nontender, nondistended, bowel sounds present. Extremities: 2+ BLE edema to mid gary Neuro: AAOx3. No focal deficits. Results - Cardiology Labs 11/02/23 06:13 11/02/23 06:13 Lab results: Cardiac Enzymes 11/01/23 Range/Units 18:12 AST 16 (13-39) U/L Total Creatine Kinase 83 (30-223) U/L B-Natriuretic Peptide 230.0 H (5-100) pg/mL Lipids 11/02/23 Range/Units 06:13 Triglycerides 162 H (0-149) mg/dL Cholesterol 126 L (140-200) mg/dL HDL Cholesterol 43 (23-92) mg/dL Cholesterol/HDL Ratio 2.9 (<5.0) CBC 11/01/23 11/02/23 Range/Units 18:12 06:13 RBC 4.10 3.99 (3.60-5.00) X10E6/uL Hgb 12.6 12.2 (11.8-15.4) g/dL Hct 37.8 36.8 (34.0-46.4) % Plt Count 277 271 (150-450) x10E3/uL Neut # (Auto) 5.7 5.9 (1.8-7.7) x10E3/uL Lymph # (Auto) 1.7 1.9 (1.00-4.8) x10E3/uL [place] # (Auto) 0.6 0.6 (0.0-0.8) x10E3/uL Eos # (Auto) 0.1 0.1 (0.0-0.45) x10E3/uL Baso # (Auto) 0.1 0.0 (0.0-0.2) x10E3/uL Comprehensive Metabolic Panel 11/01/23 11/02/23 Range/Units 18:12 06:13 Sodium 141 142 (136-145) mmol/L Potassium 3.8 3.9 (3.5-5.1) mmol/L Chloride 109 H 111 H (98-107) mmol/L Carbon Dioxide 20.3 L 24.1 (21.0-31.0) mmol/L BUN 42 H 31 H (7-25) mg/dL Creatinine 1.25 H 0.86 (0.60-1.20) mg/dL Glucose 104 H 114 H (70-100) mg/dL Calcium 9.6 9.3 (8.6-10.3) mg/dL Direct Bilirubin 0.10 (0.03-0.18) mg/dL Indirect Bilirubin 0.3 mg/dL AST 16 (13-39) U/L ALT 13 (7-52) U/L Alkaline Phosphatase 57 (34-104) U/L Total Protein 6.9 (6.4-8.9) gm/dL Albumin 4.7 (3.5-5.7) gm/dL Intake and Output 11/01/23 11/02/23 11/02/23 23:59 07:59 15:59 Other: # Voids 1 # Unmeasured Voids 3 # Bowel Movements 1 Weight 72.3 kg 70.1 kg Date of Last Bowel Movement 11/01/23 11/02/23 Patient Weight 11/02/23 23:59 Weight 70.1 kg Lab 11/01/23 18:12 PT 11.3 INR 1.0 APTT 32.6 A&P - Cardiology (1) Hypertension: Code(s): I10 - Essential (primary) hypertension (2) 2nd degree AV block: Code(s): I44.1 - Atrioventricular block, second degree (3) Bradycardia: Code(s): R00.1 - Bradycardia, unspecified (4) Chest pain: Code(s): R07.9 - Chest pain, unspecified (5) Heart failure: Code(s): I50.9 - Heart failure, unspecified (6) CAD (coronary artery disease): Qualifiers: Coronary Disease-Associated Artery/Lesion type: unga artery [place] vs. transplanted heart: unga heart Associated angina: without angina Qualified Code(s): I25.10 - Atherosclerotic heart disease of unga coronary artery without angina pectoris Code(s): I25.10 - Atherosclerotic heart disease of unga coronary artery without angina pectoris Plan 72 year old female with PMH significant for mild CAD, HFpEF, COPD, LBBB and HTN- has followed up in the past with Dr Key in [place]. She [place] [facility] [place] with chest pain and back pain radiating to bilateral arms associated with weakness, dizziness and headaches. On arrival to the ER, EKG showed sinus bradycardia and subsequent EKG showed 2:1AVB with LBBB with HR of 48bpm. She was hypertensive-211/85. Creatinine was slightly elevated 1.25. Troponin was negative; BNP mildly elevated at 230. She received ASA, clonidine, hydralazine and Nitroglycerine. BP has improved-currently 154/53 and she is currently chest pain free however continues to c/o dizziness. Remains in 2:1 AVB on telemetry. Previous Cardiac work up from [place] [facility] 02/11/2023: LVEF 55-60%; Normal diastolic function; mild MR, moderate MAC, mild TR, normal R sided pressures RVSP 28mmHg Last [facility] 08/17/2019 per report: Mild coronary artery disease; moderately elevated R sided pressures; mildly elevated PCWP, severe systemic hypertension, periprocedural supraventricular tachycardia, 2-1 AV block and intermittent left bundle branch block.Recommendation: ECHO; 30 day event monitor; optimization of medical management; EP referral for possible EP study Assessment: Symptomatic 2:1 AVB with prolonged NM and LBBB Acute decompensated HFpEF Mild CAD. Hx of chronic angina on Imdur Hypertension-above goal Hx of COPD Recommendations: - From previous cardiology records, it appears that she has had intermittent 2:1AVB since 2019 during [facility]. EP referral was recommended but pt denies being seen by EP. Pt is going into high grade AVB with symptoms of dizziness and presyncope. She will benefit from PPM for AVN dysfunction. Pt prefers to transfer to [facility]. Will call transfer center to initiate transfer. - Chest pain is atypical; Troponin was negative despite several days of chest pain and no ischemic changes noted on EKG. Has had chronic angina from previous cardiology records. Elevated BP may be contributing to angina and has resolved with improved BP. Will restart home Imdur 60mg daily. - She is hypervolemic on exam- Will give IV lasix 40mg x1 and monitor response. Pt had been on PRN lasix at home but was not taking it despite BLE edema. Monitor renal function and electrolytes. - BP is above goal likely compensatory for AV block and bradycardia. Continue Amlodipine 5mg daily, Jardiance 10mg daily, Losartan 100mg daily, Imdur 60mg daily. Uptitrate BP meds as tolerated. - Will follow. Documented By: Emmanuelle Tipton MD 11/02/23 1425 Signed By: <Electronically signed by Emmanuelle Tipton MD> 11/02/23 [address] [facility] Work Phone: [phone] 487-737503-26-2024 History and physical note Author Lisa Graham [facility] November 02, 2023 7:27am Note Date/Time November 02, 2023 3:3 9am [facility] [address] [place] [address] Hospitalist H&P Signed Patient: Kimberly Everett MR#: [id number] : 1950 Acct:[id number] Age/Sex: 72 / F Adm Date: 4 Loc: Room: [address] [place] [address] Type: ADM INOo Attending Dr: Lisa Graham DO Copies to: DO Abdulaziz Garsia MD, RES~ HPI DATE OF EXAMINATION: 11/02/23 CHIEF COMPLAINT: chest pain, SOB HISTORY OF PRESENT ILLNESS: Kimberly Everett is a 72 yo F with a pmh of HTN, CAD, COPD, and CHF with preserved EF admitted for chest pain, bradycardia, and SOB. Patient states that she has been having chest pain that was radiating to her back and bilateral arms. She has noticed increased shortness of breath with this as well, that is worse with laying down. She also reports having a nonproductive cough. Patient presented toher PCP earlier today with these symptoms and was told to come to the ED for chest pain, bradycardia, dizziness, and EKG in clinic revealed an AV block with a 2-1 conduction. Patient states that her pain had started on Wednesday and has worsened over the weekend. She does not have a hx of bradycardia. Patient deniesany history of stents. Patient recently started Jardiance for CHF, per records.Patient also takes Lasix BID as needed, states that she takes it whenever she has swelling of her legs. Patient had an echo on 09/06/23 that revealed an EF of 75%. In the ED, EKG did not reveal any acute STEMI findings. Chest x-ray did not reveal any acute processes. Labs were significant for creatinine 1.25 and BNP 230. Troponin was normal. Patient was hypertensive at 211/85 and HR of 59. Patient was treated with aspirin 324mg x2, clonidine, hydralazine, and nitro. Atthe time of exam, patient denies any fever, chills, vomiting. Patient states that she has a headache, lightheadedness, nausea, chest pain. Patient does state that her chest pain has improved from earlier and now it is more of a pressure. BP has improved to 157/51. She remains bradycardiac at 48. Patient admitted for further medical management. Review of Systems Review of Systems All other systems reviewed & are negative unless noted below or in HPI [facility] Medical History (Updated 11/02/23 @ 07:24 by Lisa Graham DO) Hypertension Surgical History History of bowel resection H/O hernia repair Family History Brother Family history of other condition Legacy FamHx Relation: Brother(s); Legacy FamHx Problem: prostate Father Heart disease Mother Cancer Legacy FamHx Problem: Diagnosed with Cancer Hypertension Sister Cancer Legacy FamHx Problem: Diagnosed with Cancer Other No significant family history Social History Smoking Status: Former smoker Substance Use Type: None Meds Medications and Allergies Allergies amoxicillin [From Augmentin] Allergy (Unknown, Verified 11/01/23 17:29) Rash azithromycin Allergy (Unknown, Verified 11/01/23 17:29) Hives bacitracin Allergy (Unknown, Verified 11/01/23 17:29) Rash chlorhexidine [From Hibiclens] Allergy (Unknown, Verified 11/01/23 17:29) Rash clindamycin Allergy (Unknown, Verified 11/01/23 17:29) Hives latex Allergy (Unknown, Verified 11/01/23 17:29) Rash meloxicam [From Mobic] Allergy (Unknown, Verified 11/01/23 17:29) Rash metronidazole [From Flagyl] Allergy (Unknown, Verified 11/01/23 17:29) Rash neomycin [From Neosporin ([id number])] Allergy (Unknown, Verified 11/01/23 17:29) Rash polymyxin B [From Neosporin ([id number])] Allergy (Unknown, Verified 10/31/2416:29) Rash sulfacetamide Allergy (Unknown, Verified 11/01/23 17:29) Unknown Reaction clavulanic acid [From Augmentin] Allergy (Verified 11/01/23 17:29) Rash montelukast Allergy (Verified 11/01/23 17:29) Rash Sulfa (Sulfonamide Antibiotics) Allergy (Verified 11/01/23 17:29) Hives Home Medications aspirin 81 mg tablet,delayed release (Aspir-) 81 mg PO DAILY 09/30/18 [History Confirmed 11/01/23] baclofen 10 mg tablet 10 mg PO TID 09/30/18 [History Confirmed 11/01/23] biotin 1,000 mcg chewable tablet 1,000 mcg PO DAILY 09/30/18 [History Confirmed 11/01/23] pantoprazole 40 mg tablet,delayed release 40 mg PO DAILY 90 days #90 tabs 10/11/23 [Rx Confirmed 11/01/23] amlodipine 5 mg tablet 5 mg PO DAILY 10/26/23 [History Confirmed 11/01/23] baclofen 5 mg tablet 5 mg PO DAILY 10/26/23 [History Confirmed 11/01/23] colestipol 1 gram tablet 1 g PO DAILY 10/26/23 [History Confirmed 11/01/23] hyoscyamine sulfate 0.125 mg sublingual tablet 0.125 mg sublingual TID 10/26/23 [History Confirmed 11/01/23] ipratropium bromide 21 mcg (0.03 %) nasal spray 2 spray intranasal DAILY 10/26/23 [History Confirmed 11/01/23] loperamide 2 mg capsule 2 mg PO DAILY PRN diarrhea 10/26/23 [History Confirmed 11/01/23] losartan 100 mg tablet 100 mg PO DAILY 10/26/23 [History Confirmed 11/01/23] trazodone 50 mg tablet 1 tab PO QHS 10/26/23 [History Confirmed 11/01/23] empagliflozin 10 mg tablet (Jardiance) 10 mg PO DAILY #90 tabs 10/28/23 [Rx Confirmed 11/01/23] albuterol sulfate 90 mcg/actuation breath activated powder inhaler 1 inh inhalation Q6HR 11/01/23 [History Confirmed 11/01/23] cyclosporine 0.05 % eye drops in a dropperette (Restasis) 1 drp Eye-Both Q12HR 11/01/23 [History Confirmed 11/01/23] fluticasone fur. 200 mcg-umeclid 62.5 mcg-vilant 25 mcg inhalat.powder (Trelegy Ellipta) 1 inh inhalation DAILY 11/01/23 [History Confirmed 11/01/23] furosemide 40 mg tablet (Lasix) 40 mg PO BID 11/01/23 [History Confirmed 11/01/23] isosorbide mononitrate 60 mg tablet,extended release 24 hr 60 mg PO DAILY 11/01/23 [History Confirmed 11/01/23] potassium chloride 10 mEq capsule,extended release 10 meq PO DAILY 11/01/23 [History Confirmed 11/01/23] Exam Physical Exam Vital Signs: Temp Pulse Resp BP Pulse Ox O2 Del Method 97.0 F L 48 L 18 157/51 H 98 Room Air 11/02/23 00:36 11/02/23 00:36 11/02/23 00:36 11/02/23 00:36 11/02/23 00:36 11/02/23 00:36 Const General: cooperative, comfortable and no acute distress Nutritional Appearance: average body habitus Orientation: alert, awake and oriented x3 HEENT Head: normal to inspection, normocephalic and atraumatic Ears: hearing grossly normal bilaterally Nose: external nose normal Face and sinus: normal facial exam Mouth: oral mucosae normal and moist mucous membranes Throat: posterior oropharynx normal Eyes General: appearance normal, both eyes and all related structures Visual Flores: normal visual flores by confrontation EOM: EOM intact bilaterally Neck Neck: normal visual inspection, full ROM and no lymphadenopathy Carotids: no bruits Chest Chest palpation & inspection: normal inspection of the chest and tenderness pectoral muscle bilaterally Resp Effort & Inspection: normal respiratory effort, able to speak in complete sentences and symmetric chest movement Auscultation: clear to auscultation bilaterally, no rales, no rhonchi and no wheezes Cardio Jugular venous pressure: no JVD Rate: bradycardic Rhythm: regular rhythm Heart Sounds: S1 normal and S2 normal Pulses: radial pulses present bilaterally 2+, posterior tibial pulses present bilaterally 2+ and dorsalis pedis present bilaterally 2+ GI Inspection: normal to inspection Palpation: soft Percussion: normal to percussion Auscultation: normal bowel sounds Musc Cervical Spine: normal cervical lordosis and cervical ROM normal Thoracic/Lumbar Spine: thoracic and lumbar spine normal to inspection and paraspinal tenderness bilaterally in the upper thoracic Skin General: no rashes or lesions noted Neuro General: patient alert, patient awake, patient oriented x3, normal light touch, pain and propioception and CN's II-XI intact bilaterally Cognition: normal cognition Speech: speech normal Extrem General: normal to inspection, full ROM, capillary refill normal and no clubbing, cyanosis or edema Psych Mood: congruent mood Affect: normal affect Speech and Movement: speech and movement normal Attitude: cooperative Thought Process: normal Thought Content: normal Insight: insight good Judgment: judgment good OLEGARIO Risk Score OLEGARIO Risk Score Predictor Historical: Age > 65 Years Old Presentation: Recent (>/=24hr) Angina Score Risk Score (0-7): 2 Results - Hospitalist H&P Lab Results Labs: Laboratory Last Values Corrected WBC 8.2 X10E3/uL (3.8-11.6) 11/01/23 18:12 Uncorrected WBC Count 8.2 x10E3/uL (3.8-11.6) 11/01/23 18:12 RBC 4.10 X10E6/uL (3.60-5.00) 11/01/23 18:12 Hgb 12.6 g/dL (11.8-15.4) 11/01/23 18:12 Hct 37.8 % (34.0-46.4) 11/01/23 18:12 MCV 92.1 fl (80-100) 11/01/23 18:12 MCH 30.7 pg (24.7-34.3) 11/01/23 18:12 MCHC 33.3 g/dL (32.0-35.0) 11/01/23 18:12 RDW 13.8 % (11.9-15.3) 11/01/23 18:12 Plt Count 277 x10E3/uL (150-450) 11/01/23 18:12 MPV 9.0 fl (6.3-10.7) 11/01/23 18:12 Neut % (Auto) 69.8 % (.) 11/01/23 18:12 Lymph % (Auto) 21.1 % (.) 11/01/23 18:12 [place] % (Auto) 6.8 % (.) 11/01/23 18:12 Eos % (Auto) 1.4 % (.) 11/01/23 18:12 Baso % (Auto) 0.9 % (.) 11/01/23 18:12 Nucleat RBC Rel Count 0.1 /100 WBC (0-0.5) 11/01/23 18:12 Neut # (Auto) 5.7 x10E3/uL (1.8-7.7) 11/01/23 18:12 Lymph # (Auto) 1.7 x10E3/uL (1.00-4.8) 11/01/23 18:12 [place] # (Auto) 0.6 x10E3/uL (0.0-0.8) 11/01/23 18:12 Eos # (Auto) 0.1 x10E3/uL (0.0-0.45) 11/01/23 18:12 Baso # (Auto) 0.1 x10E3/uL (0.0-0.2) 11/01/23 18:12 Monocyte Dist Width 16.94 % (0.00-20.00) 11/01/23 18:12 PT 11.3 Seconds (9.0-12.9) 11/01/23 18:12 INR 1.0 11/01/23 18:12 APTT 32.6 Seconds (25.1-36.5) 11/01/23 18:12 PHA Creatinine Clear N/A 11/01/23 18:12 Sodium 141 mmol/L (136-145) 11/01/23 18:12 Potassium 3.8 mmol/L (3.5-5.1) 11/01/23 18:12 Chloride 109 mmol/L (98-107) H 11/01/23 18:12 Carbon Dioxide 20.3 mmol/L (21.0-31.0) L 11/01/23 18:12 Anion Gap 15.5 mEq/L (6.0-15.0) H 11/01/23 18:12 BUN 42 mg/dL (7-25) H 11/01/23 18:12 Creatinine 1.25 mg/dL (0.60-1.20) H 11/01/23 18:12 Est GFR (CKD-EPI) 46.081 mL/Min 11/01/23 18:12 Glucose 104 mg/dL (70-100) H 11/01/23 18:12 Calcium 9.6 mg/dL (8.6-10.3) 11/01/23 18:12 Total Bilirubin 0.4 mg/dl (0.3-1.0) 11/01/23 18:12 Direct Bilirubin 0.10 mg/dL (0.03-0.18) 11/01/23 18:12 Indirect Bilirubin 0.3 mg/dL 11/01/23 18:12 AST 16 U/L (13-39) 11/01/23 18:12 ALT 13 U/L (7-52) 11/01/23 18:12 Alkaline Phosphatase 57 U/L (34-104) 11/01/23 18:12 Total Creatine Kinase 83 U/L (30-223) 11/01/23 18:12 Troponin I High Sens 7.0 pg/mL (0.0-15.0) 11/01/23 18:12 B-Natriuretic Peptide 230.0 pg/mL (5-100) H 11/01/23 18:12 Total Protein 6.9 gm/dL (6.4-8.9) 11/01/23 18:12 Albumin 4.7 gm/dL (3.5-5.7) 11/01/23 18:12 Globulin 2.2 gm/dL 11/01/23 18:12 Albumin/Globulin Ratio 2.1 11/01/23 18:12 Assessment & Plan Assessment/Plan (1) Chest pain: (2) Bradycardia: (3) Hypertension: (4) 2nd degree AV block: (5) Heart failure: (6) CAD (coronary artery disease): (7) Hypomagnesemia: Plan Kimberly Everett is a 72 yo F with a pmh of HTN, CAD, COPD, and CHF with preserved EF admitted for chest pain, bradycardia, and SOB. Patient states that she has been having chest pain that was radiating to her back and bilateral arms. She has noticed increased shortness of breath with this as well, that is worse with laying down. She also reports having a nonproductive cough. Patient presented toher PCP earlier today with these symptoms and was told to come to the ED for chest pain, bradycardia, dizziness, and EKG in clinic revealed an AV block with a 2-1 conduction. Patient states that her pain had started on Wednesday and has worsened over the weekend. She has a hx of bradycardia. Patient denies any history of stents. Patient recently started Jardiance for CHF and magnesium forhypomagnesium. Patient also takes Lasix BID as needed, states that she takes it whenever she has swelling of her legs. Patient had an echo on 09/06/23 that revealed an EF of 75%. In the ED, EKG did not reveal any acute STEMI findings. Chest x-ray did not reveal any acute processes. Labs were significant for creatinine 1.25 and BNP 230. Troponin was normal. Patient was hypertensive at 211/85 and HR of 59. Patient was treated with aspirin 324mg x2, clonidine, hydralazine, and nitro. At the time of exam, patient denies any fever, chills, vomiting. Patient states that she has a headache, lightheadedness, nausea, chest pain. Patient does state that her chest pain has improved from earlier and now it is more of a pressure. BP has improved to 157/51. She remains bradycardiac at 48. Patient admitted for further medical management. 1. Chest pain 2. Bradycardia 3. Hypertension 4. 2nd degree AV block 5. Heart failure 6. CAD - Chest pain possibly due to CHF versus significant bradycardia and conduction abnormality. BNP elevated and pt has SOB and a nonproductive cough. Troponin unremarkable and EKG nonacute for STEMI. - Continue pain management as needed. - Consult cardiology for bradycardia, chest pain, and 2nd degree AV block. - Order BMP, CBC, lipid panel, A1C, and Mg. - Continue home medications for chronic conditions. Attending attestation: Patient seen and examined independent of the resident on the next day. Patient discussed with resident at time of admission. Reviewed HPI, exam, and assessment plan and agree with it. Will hold Lasix and will monitor labs. Appreciate cardiology's input. Due to patient's symptomatic bradycardia with chest pain, dizziness, and weakness she requires further inpatient care and monitoring with specialized cardiology assessment. PT/OT will evaluate the patient due to progressive weakness and fatigue to see if she needs any rehab needs at the time of discharge. Monitor blood pressure and continue home blood pressure medication. Patient will need at least 2 to 3 daysof monitoring and treatment before she is ready for discharge. IP vs OBS Justification Based on differential dx, clinical care plan, and risk of adverse events, if untreated, in my clinical judgement this patient requires an acute care setting as: INPATIENT because of an expectation of an over 2 midnight stay. Estimated length of stay (# of days): 3 Osteopathic Structural Exam OSE Pt. examined in the following positions (minimum of 2): Supine and Sitting Asymmetry/ Deformity of AP/Lateral Spine Exhibited:: No Deformities No soft tissue abnormalities of the musculoskeletal system were noted.: Yes Passive and active motion testing of the spine and extremities was normal.: Yes Documented By: Abdulaziz Blackwell MD, RES 11/02/23 020 5 Signed By: <Electronically signed by MD TERENCE Blackwell> 11/02/23 0339 <Electronically signed by Lisa Graham DO> 11/02/23 [id number] [facility] Work Phone: [phone] [facility] Chief Complaint: Patient here for 6 mo follow up CAD, hypertension, and LBBB. She had routine labs last month. Still has intermittent chest pain. Only taking lasix PRN for LE edema, which isn't very often she says. Still gets SOB w/wo exertion. HPI: Kimberly Everett is a 72 y.o. female With a history of mild coronary artery disease, Suspected heart failure with preserved ejection fraction and COPD She is here in routine follow-up. She is essentially stable with no new symptoms. 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 Cardiology ROS: Review of Systems Cardiovascular: Positive for chest pain and leg swelling (not often). Respiratory: Positive for shortness of breath. Musculoskeletal: Positive for arthritis, muscle cramps and muscle weakness. Neurological: Positive for light-headedness. All other systems reviewed and are negative. Past Medical History She has no past medical history on file. Surgical History She has a past surgical history that includes Ventral hernia repair and Cataract extraction. Social History She reports that she has quit smoking. Her smoking use included cigarettes. She has never used smokeless tobacco. No history on file for alcohol use and drug use. Family History No family history on file. Allergies Clindamycin, Adhesive, Aspirin, Cyproheptadine, Neomycin, Neosporin daily body, Polymyxin b, Sulfamethoxazole-trimethoprim, Amoxicillin, Azithromycin, Bacitracin, Bacitracin-polymyxin b, Chlorhexidine gluconate, Latex, Meloxicam, Metronidazole, Dyusampu-xerrrsocmp-eodyegqjn, Vtlndmcu-fsccdfxyeou-srtdtemgo, and Sulfa (sulfonamide antibiotics) Medications Current Outpatient Medications: albuterol 1.25 mg/3 mL nebulizer solution, every 8 (eight) hours., Disp: , Rfl: amLODIPine (Norvasc) 5 mg tablet, Take 5 mg by mouth 1 (one) time each day at the same time., Disp: , Rfl: aspirin 81 mg EC tablet, Take 81 mg by mouth 1 (one) time each day at the same time., Disp: , Rfl: baclofen (Lioresal) 10 mg tablet, Take 10 mg by mouth in the morning, at noon, and at bedtime., Disp: , Rfl: colestipol (Colestid) 1 gram tablet, Take 2 g by mouth in the morning., Disp: , Rfl: fluticasone (Flonase) 50 mcg/actuation nasal spray, 50 sprays., Disp: , Rfl: furosemide (Lasix) 40 mg tablet, Take 40 mg by mouth 2 (two) times a week., Disp: , Rfl: furosemide (Lasix) 40 mg tablet, Take 1 tablet (40 mg) by mouth in the morning., Disp: 30 tablet, Rfl: 1 hyoscyamine 0.125 mg SL tablet, PLACE 1 TABLET UNDER THE TONGUE ALLOW TO DISSOLVE NEEDED THREE TIMES A DAY 30 DAYS, Disp: , Rfl: ibuprofen 800 mg tablet, Take 800 mg by mouth every 8 (eight) hours if needed., Disp: , Rfl: ipratropium (Atrovent) 21 mcg (0.03 %) nasal spray, 2 sprays every 12 (twelve) hours., Disp: , Rfl: isosorbide mononitrate ER (Imdur) 60 mg 24 hr tablet, TAKE 1 TABLET BY MOUTH EVERYDAY DIRECTED, Disp: 90 tablet, Rfl: 3 loperamide (Imodium) 2 mg capsule, Take 2 mg by mouth if needed., Disp: , Rfl: losartan (Cozaar) 100 mg tablet, Take 100 mg by mouth in the morning., Disp: , Rfl: pantoprazole (ProtoNix) 40 mg EC tablet, Take 40 mg by mouth in the morning., Disp: , Rfl: potassium chloride CR (Klor-Con M10) 10 mEq ER tablet, Take 10 mEq by mouth in the morning., Disp: , Rfl: traZODone (Desyrel) 50 mg tablet, Take 50 mg by mouth at bedtime., Disp: , Rfl: Trelegy Ellipta 200-62.5-25 mcg blister with device, INHALE 1 PUFF INTO THE LUNGS EVERY DAY, Disp: , Rfl: Last Recorded Vitals BP 138/76 (BP Location: Left arm, Patient Position: Sitting) Pulse 80 Ht 1.549 m (5' 1 ) Wt 72.6 kg (160 lb) SpO2 96% BMI 30.23 kg/m??? Physical Examination: GENERAL: alert and oriented x3, well developed, in no acute distress. HEAD: atraumatic, normocephalic. EYES: DRE, EOMI. NECK: trachea midline, no JVD present, no carotid bruits present. CARDIAC: S1, S2 present. RRR. No murmur, rubs, or gallops. RESPIRATORY: CTAB, no increased effort of breathing, no rales, rhonchi, or wheezing. ABDOMEN: soft, nontender, nondistended. EXTREMITIES: no lower extremity edema, peripheral pulses are 2+ bilaterally. No rash/skin discoloration present. NEURO: strength/sensation equal and symmetric in bilateral upper and lower extremities. PSYCH: appropriate mood, affect, and judgement. CV Testin02/11/23 Echo- reviewed with pt Echocardiogram 12/31/2021: Global left ventricular systolic function is hyperdynamic; LVEF is 75%. Mild acceleration of flow across the left ventricular outflow tract related to hyperdynamic contractility. Normal right ventricular size and systolic function. No significant valvular dysfunction. No pericardial effusion. ECHO 08/21/19 Global left ventricular systolic function is normal (Visually estimated EF 55%). The left ventricle is normal size. Left ventricular wall thickness is normal. The septum is abnormal i (more content not included)...[facility]12-27-2023 Evaluation note* Encounter Date Diagnosis Assessment Notes Treatment Notes Treatment Clinical Notes Jul, Other idiopathic scoliosis, lumbar region (ICD-10 - M41.26) [facility] Other 12-12-2023 Evaluation note* Encounter Date Diagnosis Assessment Notes Treatment Notes Treatment Clinical Notes Jul, Chronic obstructive pulmonary disease (ICD-10 - J44.9) Jul, KATELYN (obstructive sleep apnea) (ICD-10 - G47.33) Jul, Abnormal CXR (ICD-10 - R93.89) Jul, Atrial fibrillation (ICD-10 - I48.91) [facility] Other 12-06-2023 Evaluation note* Encounter Date Diagnosis Assessment Notes Treatment Notes Treatment Clinical Notes Jul, GERD (gastroesophage al reflux disease) (ICD-10 - K21.9) Jul, Well adult exam (ICD -10 - Z00.00) 72-year-old female who has several medical conditions but is doing well with her current medication regimen. She denies any acute issues or concerns no history of present physical exam today. Patient completed lab work prior to next plan. Her recent lab work was reviewed with her and is all within normal limits. She will follow-up in 6 months or sooner if medication arises. Jul, Chronic obstructive pulmonary disease (ICD-10 - J44.9) Jul, Essential hypertensi on (ICD-10 - I10) Jul, KATELYN (obstructive sle ep apnea) (ICD-10 - G47.33) Jul, Atrial fibrillation (ICD-10 - I48.91) Jul, Polyarthritis (ICD-1 0 - M13.0) Jul, Syrinx of spinal cor d (ICD-10 - G95.0) Jul, Irritable bowel synd akbar with diarrhea (ICD-10 - K58.0) Jul, Psychophysiological insomnia (ICD-10 - F51.04) Jul, Chronic fatigue (ICD -10 - R53.82) Jul, Medication monitorin g encounter (ICD-10 - Z51.81) [facility] Other 11-09-2023 Evaluation note* Encounter Date Diagnosis Assessment Notes Treatment Notes Treatment Clinical Notes Jun, Bruit of left carotid artery (ICD-10 - R09.89) Given her carotid bruit on the left and her ruptured blood vessel on the right I we will get carotid ultrasound and we will review the results with her once obtained. 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) [facility] Other 10-17-2023 Evaluation note* Encounter Date Diagnosis Assessment Notes Treatment Notes Treatment Clinical Notes May, Irritable bowel syndrome with diarrhea (ICD-10 - K58.0) [facility] Other 10-02-2023 Evaluation note* Encounter Date Diagnosis Assessment Notes Treatment Notes Treatment Clinical Notes May, Other idiopathic scoliosis, lumbar region (ICD-10 - M41.26) [facility] Other 09-13-2023 Evaluation note* Encounter Date Diagnosis Assessment Notes Treatment Notes Treatment Clinical Notes Apr, Generalized abdominal pain (ICD-10 - R10.84) [facility] Other 09-13-2023 Evaluation note* Encounter Date Diagnosis Assessment Notes Treatment Notes Treatment Clinical Notes Apr, Other idiopathic scoliosis, lumbar region (ICD-10 - M41.26) [facility] Other 08-23-2023 Evaluation note* Encounter Date Diagnosis Assessment Notes Treatment Notes Treatment Clinical Notes Mar, Essential hypertensi on (ICD-10 - I10) Blood pressure well controlled on losartan 100 mg and amlodipine 5 mg daily, no changes to her medication regimen. Mar, Polyarthritis (ICD-1 0 - M13.0) Patient has polyarthritis and needs work-up for autoimmune arthropathy. Lab work ordered today patient will be contacted with the results. Mar, Other idiopathic scoliosis, lumbar region (ICD-10 - M41.26) Patient is managing with 800 mg ibuprofen as needed for her back pain Mar, GERD (gastroesophage al reflux disease) (ICD-10 - K21.9) Patient is doing well on pantoprazole 40 mg daily and she will continue with this. Mar, Psychophysiological insomnia (ICD-10 - F51.04) Patient is doing well on trazodone 50 mg daily she is to continue with this. Mar, Syrinx of spinal cor d (ICD-10 - G95.0) Patient wants to go back to Dr. Ramírez who she used to see for this issue and a referral was placed. Mar, Screening mammogram for breast cancer (ICD-10 - Z12.31) Patient is due for screening mammogram and this was ordered today. She will be contacted with results. [facility] Other 08-21-2023 Evaluation note* Encounter Date Diagnosis Assessment Notes Treatment Notes Treatment Clinical Notes Mar, Irritable bowel syndrome with diarrhea (ICD-10 - K58.0) Pt states she is still dealing with diarrhea Pt advised to take hyosycamine QID Pt advised to take imodium prn Pt advised to take a probiotic capsule Pt advised to use wet wipes versus toilet paper Pt states that she did bleed a little bit in the rectum Pt RTO in 6 months [facility] Other 08-04-2023 NoteStable without any worsening SOB [facility]08-04-2023 NoteF/U with PCP and pulmonary [facility]08-04-2023 NoteCoronary artery disease is stable Continue GDMT- ASA, imdur continue risk factor modifications- heart healthy diet, regular exercise as tolerated and continue all medications.[facility] 03-12-2023 NoteStable no acute concernsUnAs[facility] 03-12-2023 NoteHypertension is well controlled 134/83 Continue meds- losartan 100 mg, lasix, amlodipineUnAshtabula [facility]08-04-2023 NoteUTP CARDIOLOGY PROGRESS NOTE HPI: Kimberly Everett is a 72 y.o. female here for 3 week f/U Patient here for 3 week follow up CHF and med changes. She was started on lasix at last visit with Epifanio Lozada CNP. She had BMP a week later. She states the leg cramps were do bad so she's taking lasix every 2-3 days. Says her breathing is pretty good and is about the same . 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 mild CAD per 08/2019 cardiac cath, HTN, LBBB, COPD, KATELYN Review of Systems Cardiovascular: Positive for chest pain and leg swelling. Musculoskeletal: Positive for arthritis, muscle cramps and muscle weakness. Neurological: Positive for light-headedness. All other systems reviewed and are negative. Visit Vitals BP 134/83 (BP Location: Left arm, Patient Position: Sitting) Pulse 78 Ht 1.549 m (5' 1 ) Wt 74.8 kg (165 lb) SpO2 98% BMI 31.18 kg/m??? Smoking Status Former BSA 1.79 m??? Allergies Allergen Reactions Clindamycin Hives and Shortness of breath Adhesive Aspirin Unknown Cyproheptadine Cramping, muscle pain Neomycin Unknown Neosporin Daily Body Unknown Polymyxin B Unknown Sulfamethoxazole-Trimethoprim Amoxicillin Rash If already mixed with a mediction I react from the mixture Pt. states Azithromycin Hives and Rash Bacitracin Rash and Unknown Bacitracin-Polymyxin B Rash Chlorhexidine Gluconate Rash Latex Rash and Unknown Gloves only Meloxicam Hives, Itching and Rash Metronidazole Hives, Itching, Rash and Unknown Debdagna-Kulzovzfdv-Yjxgvsanp Rash Dmnadwdz-Ubunkpoabnw-Bnhrtmblb Rash Sulfa (Sulfonamide Antibiotics) Hives, Rash and Unknown Medications: Current Outpatient Medications on File Prior to Visit Medication Sig Dispense Refill albuterol 1.25 mg/3 mL nebulizer solution every 8 (eight) hours. amLODIPine (Norvasc) 5 mg tablet Take 5 mg by mouth 1 (one) time each day at the same time. aspirin 81 mg EC tablet Take 81 mg by mouth 1 (one) time each day at the same time. baclofen (Lioresal) 10 mg tablet Take 10 mg by mouth in the morning, at noon, and at bedtime. colestipol (Colestid) 1 gram tablet Take 2 g by mouth in the morning. fluticasone (Flonase) 50 mcg/actuation nasal spray 50 sprays. furosemide (Lasix) 40 mg tablet Take 40 mg by mouth 2 (two) times a week. hyoscyamine 0.[address] 1 TABLET UNDER THE TONGUE ALLOW TO DISSOLVE NEEDED THREE TIMES A DAY 30 DAYS ibuprofen 800 mg tablet Take 800 mg by mouth every 8 (eight) hours if needed. ipratropium (Atrovent) 21 mcg (0.03 %) nasal spray 2 sprays every 12 (twelve) hours. isosorbide mononitrate ER (Imdur) 60 mg 24 hr tablet TAKE 1 TABLET BY MOUTH EVERYDAY DIRECTED 90 tablet 3 loperamide (Imodium) 2 mg capsule Take 2 mg by mouth if needed. losartan (Cozaar) 100 mg tablet Take 100 mg by mouth in the morning. pantoprazole (ProtoNix) 40 mg EC tablet Take 40 mg by mouth in the morning. potassium chloride CR (Klor-Con M10) 10 mEq ER tablet Take 10 mEq by mouth in the morning. traZODone (Desyrel) 50 mg tablet Take 50 mg by mouth at bedtime. Trelegy Ellipta 200-62.5-25 mcg blister with device INHALE 1 PUFF INTO THE LUNGS EVERY DAY [DISCONTINUED] huiuyxeibsz-uvnjwecig-bzlpkrvy 100-62.5-25 mcg blister with device Inhale 100 mcg in the morning. furosemide (Lasix) 40 mg tablet Take 1 tablet (40 mg) by mouth in the morning. 30 tablet 1 [DISCONTINUED] baclofen (Lioresal) 5 mg tablet Take 5 mg by mouth in the morning, at noon, and at bedtime. [DISCONTINUED] levoFLOXacin (Levaquin) 750 mg tablet 1 (one) time each day at the same time. [DISCONTINUED] losartan-hydrochlorothiazide (Hyzaar) 50-12.5 mg tablet Take 1 tablet by mouth in the morning. [DISCONTINUED] predniSONE (Deltasone) 10 mg tablet prednisone 10 mg tablet TAKE 4 TABS DAILY X3 DAYS, 2 TABS DAILY X3 DAYS, 1 TAB DAILY X7 DAYS No current facility-administered medications on file prior to visit. Physical Exam: Constitutional: Appearance: Normal appearance. Without apparent distress, chronically ill, ambulates with cane HENT: Head: Normocephalic and atraumatic. Nose: Nose normal. Mouth/Throat: Mouth: Mucous membranes are moist. Eyes: Extraocular Movements: Extraocular movements intact. Conjunctiva/sclera: Conjunctivae normal. Neck: Vascular: No JVD. Cardiovascular: Rate and Rhythm: Normal rate and regular rhythm. Pulses: Dorsalis pedis pulses are 3 on the right side and 3on the left side. Posterior tibial pulses are 3 on the right side and 3 on the left side. Heart sounds: Normal heart sounds, S1 normal and S2 normal. Pulmonary: Effort: Pulmonary effort is normal. Breath sounds: Normal breath sounds. Abdominal: General: Bowel sounds are normal. Palpations: Abdomen is soft. Musculoskeletal: General: Normal range of motion. Cervical back: Normal range of motion. Right lower leg: No edema. Left lower leg: No edema. Skin: General: Skin is warm and dry. Capi (more content not included)...[facility]08-04-2023 NotePatient here for 3 week follow up CHF and med changes. She was started on lasix at last visit with Epifanio Lozada CNP. She had BMP a week later. She states the leg cramps were do bad so she's taking lasix every 2-3 days. Says her breathing is pretty good and is about the same . 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 Review of Systems Cardiovascular: Positive for chest pain and leg swelling. Musculoskeletal: Positive for arthritis, muscle cramps and muscle weakness. Neurological: Positive for light-headedness. All other systems reviewed and are negative.[facility] 02-23-2023 Evaluation note* Encounter Date Diagnosis Assessment Notes Treatment Notes Treatment Clinical Notes Feb, Chronic obstructive pulmonary disease (ICD-10 - J44.9) [facility] Other 07-17-2023 NoteCardiology Clinic Note Subjective Kimberly Everett is a 72 y.o. year old female patient With nonobstructive coronary artery disease, hypertension, left bundle branch block, COPD and obstructive sleep apnea seen in follow-up. Patient Active Problem List Diagnosis Acute bronchitis KANU (acute kidney injury) (CMS/HCC) Hammertoe of left foot Chronic obstructive pulmonary disease (CMS/HCC) Dyspnea Hypertension Left bundle branch block Midline cystocele Mixed incontinence Urinary urgency Urinary tract infection without hematuria Upper respiratory infection S/P ventral herniorrhaphy Renal angiomyolipoma Preop cardiovascular exam Plantar fascial fibromatosis Obstructive sleep apnea syndrome Vaginal vault prolapse Urinary, incontinence, stress female No family history on file. Social History Tobacco Use Smoking status: Former Types: Cigarettes Smokeless tobacco: Never HPI PMHx: mild CAD per 08/2019 cardiac cath, HTN, LBBB, COPD, KATELYN She has been having elevated Bps at home along with some chest pain. She has been having increased SOB since September. She has been on her second course of steroids in the last few weeks. She is also on an abx. Both of these for COPD exacerbation. She saw her pulmonolgist, Dr. Rock, who obtained a CT scan of her chest. He reported to her that her CT scan showed no changes and to see cardiology for possible cardiac cause for her dyspnea. She has not been taking lasix. She has lost 5lbs in the last 2 months. She cannot lay flat - this is not new for her, present since before her cath in 2019. When she is off the steroids her BP is running 130s/70s. She recently underwent cataract surgery and she was told that they had seen clara. She hasn't been having palpitations. She has been having intermittent chest pain. Occurs mainly when she is sitting or in the kitchen doing things. Does not occur when she is going up or down the stairs. She has some intermittent dizziness if she stands too quickly or if she rolls over too quickly in bed. Update: 02/22/2023 She feels fatigued She has worsening dyspnea on exertion since around [place] She has seen pulmonology and recommended cardiology follow-up She takes Lasix PRN, took last in January She fell in September and November Occasional chest pains, some lower extremity edema Review of Systems Cardiovascular: Positive for chest pain, dyspnea on exertion and leg swelling. Negative for near-syncope, orthopnea, palpitations, paroxysmal nocturnal dyspnea and syncope. Objective Visit Vitals BP 148/76 (BP Location: Left arm, Patient Position: Sitting, BP Cuff Size: Large adult) Pulse 60 Ht 1.549 m (5' 1 ) Wt 75.3 kg (166 lb) SpO2 97% BMI 31.37 kg/m??? Smoking Status Former BSA 1.8 m??? Physical Exam General: Awake, alert, NAD Pulm: Bibasilar crackles Cards: Regular rate and rhythm, S1, S2. No S3 or S4 gallop. Murmur: none Abd: Soft, Nontender, physiologic bowel sounds are present Extr: Lower extremity edema: 1+. Skin: warm, dry, well perfused Neuro: A&Ox3, No gross deficits Allergies Allergies Allergen Reactions Clindamycin Hives and Shortness of breath Adhesive Aspirin Unknown Cyproheptadine Cramping, muscle pain Neomycin Unknown Neosporin Daily Body Unknown Polymyxin B Unknown Sulfamethoxazole-Trimethoprim Amoxicillin Rash If already mixed with a mediction I react from the mixture Pt. states Azithromycin Hives and Rash Bacitracin Rash and Unknown Bacitracin-Polymyxin B Rash Chlorhexidine Gluconate Rash Latex Rash and Unknown Gloves only Meloxicam Hives, Itching and Rash Metronidazole Hives, Itching, Rash and Unknown Yyxlehwy-Cwhtyrwble-Ruforfuzy Rash Hdlnfdta-Elrhojemioy-Haenpiyzs Rash Sulfa (Sulfonamide Antibiotics) Hives, Rash and Unknown Medications Current Outpatient Medications: albuterol 1.25 mg/3 mL nebulizer solution, every 8 (eight) hours., Disp: , Rfl: amLODIPine (Norvasc) 5 mg tablet, Take 5 mg by mouth 1 (one) time each day at the same time., Disp: , Rfl: aspirin 81 mg EC tablet, Take 81 mg by mouth 1 (one) time each day at the same time., Disp: , Rfl: baclofen (Lioresal) 10 mg tablet, Take 10 mg by mouth in the morning, at noon, and at bedtime., Disp: , Rfl: baclofen (Lioresal) 5 mg tablet, Take 5 mg by mouth in the morning, at noon, and at bedtime., Disp: , Rfl: colestipol (Colestid) 1 gram tablet, Take 2 g by mouth in the morning., Disp: , Rfl: fluticasone (Flonase) 50 mcg/actuation nasal spray, 50 sprays., Disp: , Rfl: rxdotdfpial-tveccqzkl-fzkbefik 100-62.5-25 mcg blister with device, Inhale 100 mcg in the morning., Disp: , Rfl: furosemide (Lasix) 40 mg tablet, Take 40 mg by mouth if needed., Disp: , Rfl: hyoscyamine 0.125 mg SL tablet, PLACE 1 TABLET UNDER THE TONGUE ALLOW TO DISSOLVE NEEDED THREE TIMES A DAY 30 DAYS, Disp: , Rfl: ibuprofen 800 mg tablet, Take 800 mg by mouth every 8 ( (more content not included)...[facility]05-22-2023 NoteCardiovascular Medicine [facility] SUBJECTIVE Chief Complaint Patient presents with Shortness of Breath Hypertension Kimberly Everett is a 72 y.o. female here for a sick visit for c/o SOB. HPI PMHx: mild CAD per 08/2019 cardiac cath, HTN, LBBB, COPD, KATELYN She has been having elevated Bps at home along with some chest pain. She has been having increased SOB since September. She has been on her second course of steroids in the last few weeks. She is also on an abx. Both of these for COPD exacerbation. She saw her pulmonolgist, Dr. Rock, who obtained a CT scan of her chest. He reported to her that her CT scan showed no changes and to see cardiology for possible cardiac cause for her dyspnea. She has not been taking lasix. She has lost 5lbs in the last 2 months. She cannot lay flat - this is not new for her, present since before her cath in 2019. When she is off the steroids her BP is running 130s/70s. She recently underwent cataract surgery and she was told that they had seen clara. She hasn't been having palpitations. She has been having intermittent chest pain. Occurs mainly when she is sitting or in the kitchen doing things. Does not occur when she is going up or down the stairs. She has some intermittent dizziness if she stands too quickly or if she rolls over too quickly in bed. Patient Active Problem List Diagnosis Acute bronchitis KANU (acute kidney injury) ([facility]) Hammertoe of left foot Chronic obstructive pulmonary disease ([facility]) Dyspnea Hypertension Left bundle branch block Midline cystocele Mixed incontinence Urinary urgency Urinary tract infection without hematuria Upper respiratory infection S/P ventral herniorrhaphy Renal angiomyolipoma Preop cardiovascular exam Plantar fascial fibromatosis Obstructive sleep apnea syndrome Vaginal vault prolapse Urinary, incontinence, stress female History reviewed. No pertinent past medical history. No family history on file. Allergies Allergen Reactions Clindamycin Hives and Shortness of breath Adhesive Aspirin Unknown Cyproheptadine Cramping, muscle pain Neomycin Unknown Neosporin Daily Body Unknown Polymyxin B Unknown Sulfamethoxazole-Trimethoprim Amoxicillin Rash If already mixed with a mediction I react from the mixture Pt. states Azithromycin Hives and Rash Bacitracin Rash and Unknown Bacitracin-Polymyxin B Rash Chlorhexidine Gluconate Rash Latex Rash and Unknown Gloves only Meloxicam Hives, Itching and Rash Metronidazole Hives, Itching, Rash and Unknown Nhfgesai-Ovxenqcxnj-Rkkpmjdyd Rash Cqzetvqa-Ygngyxfhcdl-Smiuqmtoe Rash Sulfa (Sulfonamide Antibiotics) Hives, Rash and Unknown ROS Constitutional: Positive for malaise/fatigue. Cardiovascular: Positive for chest pain. Respiratory: Positive for shortness of breath. Neurological: Positive for headaches, loss of balance and numbness. All other systems reviewed and are negative. OBJECTIVE Visit Vitals BP 163/81 (BP Location: Left arm, Patient Position: Sitting, BP Cuff Size: Adult) Pulse 77 Ht 1.549 m (5' 1 ) Wt 74.3 kg (163 lb 12.8 oz) SpO2 93% BMI 30.95 kg/m??? BSA 1.79 m??? Medications: Current Outpatient Medications: albuterol 1.25 mg/3 mL nebulizer solution, every 8 (eight) hours., Disp: , Rfl: amLODIPine (Norvasc) 5 mg tablet, Take 5 mg by mouth 1 (one) time each day at the same time., Disp: , Rfl: aspirin 81 mg EC tablet, Take 81 mg by mouth 1 (one) time each day at the same time., Disp: , Rfl: baclofen (Lioresal) 10 mg tablet, Take 10 mg by mouth in the morning, at noon, and at bedtime., Disp: , Rfl: baclofen (Lioresal) 5 mg tablet, Take 5 mg by mouth in the morning, at noon, and at bedtime., Disp: , Rfl: colestipol (Colestid) 1 gram tablet, Take 2 g by mouth in the morning., Disp: , Rfl: fluticasone (Flonase) 50 mcg/actuation nasal spray, 50 sprays., Disp: , Rfl: gucjarlrbxc-glekfgvuc-evmgmyjt 100-62.5-25 mcg blister with device, Inhale 100 mcg in the morning., Disp: , Rfl: furosemide (Lasix) 40 mg tablet, Take 40 mg by mouth if needed., Disp: , Rfl: hyoscyamine 0.125 mg SL tablet, PLACE 1 TABLET UNDER THE TONGUE ALLOW TO DISSOLVE NEEDED THREE TIMES A DAY 30 DAYS, Disp: , Rfl: ibuprofen 800 mg tablet, Take 800 mg by mouth every 8 (eight) hours if needed., Disp: , Rfl: isosorbide mononitrate ER (Imdur) 60 mg 24 hr tablet, Take 60 mg by mouth in the morning., Disp: , Rfl: levoFLOXacin (Levaquin) 750 mg tablet, 1 (one) time each day at the same time., Disp: , Rfl: loperamide (Imodium) 2 mg capsule, Take 2 mg by mouth if needed., Disp: , Rfl: losartan (Cozaar) 100 mg tablet, Take 100 mg by mouth in the morning., Disp: , Rfl: pantoprazole (ProtoNix) 40 mg EC tablet, Take 40 mg by mouth in the morning., Disp: , Rfl: potassium chloride CR (Klor-Con M10) 10 mEq ER tablet, Klor-Con M10 mEq tablet,extended release, Disp: , Rfl: predniSONE (Deltasone (more content not included)...[facility]05-22-2023 NotePatient is here today for shortness of breath. Review of Systems Constitutional: Positive for malaise/fatigue. Cardiovascular: Positive for chest pain. Respiratory: Positive for shortness of breath. Neurological: Positive for headaches, loss of balance and numbness. All other systems reviewed and are negative.[facility] 10-22-2022 Evaluation note* Encounter Date Diagnosis Assessment Notes Treatment Notes Treatment Clinical Notes Oct, Other idiopathic scoliosis, lumbar region (ICD-10 - M41.26) [facility] Other 12-15-2022 Evaluation note* Encounter Date Diagnosis Assessment Notes Treatment Notes Treatment Clinical Notes Jul, Other idiopathic scoliosis, lumbar region (ICD-10 - M41.26) [facility] Other 12-05-2022 Evaluation note* Encounter Date Diagnosis Assessment Notes Treatment Notes Treatment Clinical Notes Jul, Diarrhea (ICD-10 - R19.7) [facility] Other 12-02-2022 Evaluation note* Encounter Date Diagnosis Assessment Notes Treatment Notes Treatment Clinical Notes Jul, Diarrhea (ICD-10 - R19.7) [facility] Other 11-30-2022 Evaluation note* Encounter Date Diagnosis Assessment Notes Treatment Notes Treatment Clinical Notes Jun, Acute non-recurrent frontal sinusitis (ICD-10 - J01.10) Jun, Essential hypertension (ICD-10 - I10) 22-vpdg-on[age]-year-old female seen in the office today for follow-up of her hypertension she was recently changed to losartan with hydrochlorothiazide this did not do well for her so she was then placed back on losartan 100 mg and then she was added with Norvasc 5 mg orally daily. She states that she is doing well with these medications and does not have any side effects or concerns at this time. Her blood pressure looks well controlled. Her lab work was reviewed with her today and is within normal limits. Advised that we will follow-up in 6 months. [facility] Other 10-24-2022 Evaluation note* Encounter Date Diagnosis Assessment Notes Treatment Notes Treatment Clinical Notes May, Essential hypertension (ICD-10 - I10) [facility] Other 10-17-2022 Evaluation note* Encounter Date Diagnosis Assessment Notes Treatment Notes Treatment Clinical Notes May, Irritable bowel syndrome with diarrhea (ICD-10 - K58.0) [facility] Other 09-19-2022 Evaluation note* Encounter Date Diagnosis Assessment Notes Treatment Notes Treatment Clinical Notes Apr, Other idiopathic scoliosis, lumbar region (ICD-10 - M41.26) Apr, Essential hypertension (ICD-10 - I10) Apr, GERD (gastroesophageal reflux disease) (ICD-10 - K21.9) Apr, Insomnia due to other mental disorder (ICD-10 - F51.05) [facility] Other 09-06-2022 Evaluation note* Encounter Date Diagnosis Assessment Notes Treatment Notes Treatment Clinical Notes Apr, Chronic obstructive pulmonary disease (ICD-10 - J44.9) Apr, KATELYN (obstructive sleep apnea) (ICD-10 - G47.33) Apr, Abnormal CXR (ICD-10 - R93.89) [facility] Other 07-21-2022 Evaluation note* Encounter Date Diagnosis Assessment Notes Treatment Notes Treatment Clinical Notes Feb, Essential hypertension (ICD-10 - I10) Patient's blood pressure is slightly elevated today and she stopped a new blood pressure medication recently given to her by her lead burner helper that she can remember the name of. I advised that we stop her lisinopril 10 mg due to potential risk of causing a dry cough especially with her COPD issue and place her on losartan 50 mg daily to help better control her blood pressure. Patient is in agreement with this and she will call me if she has any problems with the switch in medication. Feb, Preoperative clearance (ICD-10 - Z01.818) Patient presents for preoperative assessment for upcoming ventral hernia surgery. Patient does have several chronic medical conditions that are being treated and monitored. Currently she is in acceptable health and based on her revised cardiac risk index and AHA cardiac risk class as well as the Pierce OR arrest classification she has less than 1% risk of cardiac problems intraoperatively and postoperatively. For her surgical lung injury prediction she does have a 2.6% risk of lung injury intraoperatively and postoperatively but she is currently able to go up and down her basement steps without significant difficulty. Examination today is completely normal. Patient has an acceptable risk for the planned procedure and pending her screening labs and EKG I have no concerns or issues with her undergoing this operation. If her screening labs or EKG show any significant abnormalities and these will need to be addressed. [facility] Other 07-20-2022 Evaluation note* Encounter Date Diagnosis Assessment Notes Treatment Notes Treatment Clinical Notes Feb, Chronic obstructive pulmonary disease (ICD-10 - J44.9) [facility] Other 06-15-2022 Evaluation note* Encounter Date Diagnosis Assessment Notes Treatment Notes Treatment Clinical Notes Jan, Chronic obstructive pulmonary disease (ICD-10 - J44.9) [facility] Other 06-02-2022 Evaluation note* Encounter Date Diagnosis Assessment Notes Treatment Notes Treatment Clinical Notes Jan, Chronic obstructive pulmonary disease (ICD-10 - J44.9) Jan, KATELYN (obstructive sleep apnea) (ICD-10 - G47.33) Jan, Abnormal CXR (ICD-10 - R93.89) [facility] Other 05-26-2022 Evaluation note* Encounter Date Diagnosis Assessment Notes Treatment Notes Treatment Clinical Notes December, Other idiopathic scoliosis, lumbar region (ICD-10 - M41.26) [facility] Other 05-16-2022 Evaluation note* Encounter Date Diagnosis Assessment Notes Treatment Notes Treatment Clinical Notes December, Chronic obstructive pulmonary disease (ICD-10 - J44.9) December, KATELYN (obstructive sleep apnea) (ICD-10 - G47.33) December, Abnormal CXR (ICD-10 - R93.89) [facility] Other 05-12-2022 Evaluation note* Encounter Date Diagnosis Assessment Notes Treatment Notes Treatment Clinical Notes December, Irritable bowel syndrome with diarrhea (ICD-10 - K58.0) CONTIUE COLESTIDE BUT TAKE 1 1/2 TABLETS DAILY-MAY ADJUST DOSAGE IF NEEDED RTO 4-5 MONTHS [facility] Other 05-09-2022 Evaluation note* Encounter Date Diagnosis Assessment Notes Treatment Notes Treatment Clinical Notes December, Essential hypertension (ICD-10 - I10) Blood pressures well controlled on lisinopril 5 mg twice daily. December, Sacroiliac pain (ICD-10 - M53.3) Patient is having right-sided SI joint pain and this was explained to her. She would like to try rehab exercises before doing an injection. She was given a rehab exercise handout. December, Chronic obstructive pulmonary disease (ICD-10 - J44.9) Patient is following with pulmonology for COPD. She does state that she has had some increased shortness of breath and I encouraged her to discuss this with her raw products director the next time she sees him which is coming up soon. Patient does acknowledge some increased work of breathing at times and when this occurs is when the pain in the neck is more noticeable. Patient has no JVD on physical exam and there is no concern of cardiac or heart failure issues I agree with the lead burner helper on this. December, GERD (gastroesophageal reflux disease) (ICD-10 - K21.9) Patient's reflux is well controlled on pantoprazole 40 mg and she is to continue with this. N regimen she will continue with it. December, Screening mammogram for breast cancer (ICD-10 - Z12.31) Patient is due for screening mammogram and this was ordered for her today. December, KATELYN (obstructive sleep apnea) (ICD-10 - G47.33) Will retest a sleep study to get patient a CPAP machine back as I suspect that this is contributing to some of patient's issues and concerns. [facility] Other 04-28-2022 Evaluation note* Encounter Date Diagnosis Assessment Notes Treatment Notes Treatment Clinical Notes Nov, GERD (gastroesophageal reflux disease) (ICD-10 - K21.9) Nov, Insomnia due to other mental disorder (ICD-10 - F51.05) Nov, Essential hypertension (ICD-10 - I10) [facility] Other 03-03-2022 Evaluation note* Encounter Date Diagnosis Assessment Notes Treatment Notes Treatment Clinical Notes Oct, Chronic rhinitis (ICD-10 - J31.0) Patient does not have any signs or symptoms consistent with a bacterial sinus infection and her issue appears to be continued chronic rhinitis most likely from an allergic source. She was instructed she could try a different qguz-[id number]-enocweb antiallergy medicine such as Iza but I also will place her on ipratropium bromide nasal spray. She is to call and return if not improving. Oct, Primary osteoarthritis of right knee (ICD-10 - M17.11) [facility] Other 12-10-2021 Evaluation note* Encounter Date Diagnosis Assessment Notes Treatment Notes Treatment Clinical Notes Jul, Diarrhea (ICD-10 - R19.7) [facility] Other 11-29-2021 Evaluation note* Encounter Date Diagnosis Assessment Notes Treatment Notes Treatment Clinical Notes Jun, Essential hypertension (ICD-10 - I10) [facility] Other 11-17-2021 Evaluation note* Encounter Date Diagnosis Assessment Notes Treatment Notes Treatment Clinical Notes Jun, Irritable bowel syndrome with diarrhea (ICD-10 - K58.0) Continue Dicyclomine and Colestipol Start otc probiotic daily Continue Gas-X prn Follow up in 6 months [employer] [facility] [employer] Other 11-15-2021 Evaluation note* Encounter Date Diagnosis Assessment Notes Treatment Notes Treatment Clinical Notes Jun, Chronic obstructive pulmonary disease (ICD-10 - J44.9) Jun, KATELYN (obstructive sleep apnea) (ICD-10 - G47.33) [facility] [employer] Other 04-28-2014 History of Past illness Narrative* Problem Noted Date Resolved Date Ventral hernia 12/04/2013 06/11/2014 documented as of this encounter (statuses as of 05/19/2022) [address]-2014 History of Past illness Narrative* Problem Noted Date Diagnosed Date Resolved Date Ventral hernia 12/04/2013 06/11/2014 documented as of this encounter (statuses as of 11/08/2023) [address]-2014 History of Past illness Narrative* Problem Noted Date Diagnosed Date Resolved Date Ventral hernia 12/04/2013 06/11/2014 documented as of this encounter (statuses as of 11/09/2023) [address]-2014 History of Past illness Narrative* Problem Noted Date Diagnosed Date Resolved Date Ventral hernia 12/04/2013 06/11/2014 documented as of this encounter (statuses as of 11/10/2023) [address]-2014 History of Past illness Narrative* Problem Noted Date Diagnosed Date Resolved Date Ventral hernia 12/04/2013 06/11/2014 documented as of this encounter (statuses as of 11/12/2023) [address]-2014 History of Past illness Narrative* Problem Noted Date Diagnosed Date Resolved Date Ventral hernia 12/04/2013 06/11/2014 documented as of this encounter (statuses as of 11/18/2023) [facility] InformationNort [employer] Other Evaluation noteNocox [place] [employer] Other Evaluation noteNo assessment information available [facility] Work Phone: Evaluation noteNocox [place] [employer] Other Evaluation note* Diagnosis Muscle spasm Spasm of muscle [facility] Diagnosis Onset Date Resolution Status CAD (coronary artery disease) chronic Bradycardia noneactive Muscle cramp noneactive [facility] Work Phone: evaluation note* Diagnosis Onset Date Resolution Status CAD (coronary artery disease) chronic Dyspnea on exertion noneacti ve Bradycardia noneactive Muscle cramp noneactive [facility] Work Phone: Evaluation note* Diagnosis Onset Date Resolution Status CAD (coronary artery disease) chronic Dyspnea on exertion noneacti ve Bradycardia noneactive Muscle cramp noneactive Upper back pain noneactive 2nd degree AV block noneacti ve Chest pain noneactive Hypomagnesemia noneactive [facility] Work Phone: Evaluation note* Diagnosis Onset Date Resolution Status CAD (coronary artery disease) chronic Dyspnea on exertion noneacti ve Bradycardia noneactive Muscle cramp noneactive Upper back pain noneactive 2nd degree AV block noneacti ve Chest pain noneactive Hypomagnesemia noneactive Chest pain acute [facility] Work Phone: Evaluation note* Diagnosis Onset Date Resolution Status CAD (coronary artery disease) chronic Dyspnea on exertion noneacti ve Bradycardia noneactive Muscle cramp noneactive Upper back pain noneactive 2nd degree AV block noneacti ve Chest pain noneactive Hypomagnesemia noneactive 2nd degree AV block acute Bradycardia acute Chest pain acute Hypertension acute Hypomagnesemia acute CAD (coronary artery disease) chronic Heart failure chronic [facility] Work Phone: Evaluation note* Diagnosis Onset Date Resolution Status CAD (coronary artery disease) chronic Dyspnea on exertion noneacti ve Bradycardia noneactive Muscle cramp noneactive Upper back pain noneactive 2nd degree AV block noneacti ve Chest pain noneactive Hypomagnesemia noneactive 2nd degree AV block chronic Bradycardia chronic CAD (coronary artery disease) chronic Hypomagnesemia resolved 2nd degree AV block chronic Bradycardia chronic Chronic diastolic (congestive) heart failure chronic Essential hypertension chron ic Pacemaker chronic Hospital discharge follow-up noneactive [facility] Work Phone: Evaluation note* Diagnosis Primary hypertension- Primary Unspecified essential hypertension [facility] Diagnosis Onset Date Resolution Status CAD (coronary artery disease) chronic Dyspnea on exertion noneacti ve Bradycardia noneactive Muscle cramp noneactive Upper back pain noneactive 2nd degree AV block noneacti ve Chest pain noneactive Hypomagnesemia noneactive 2nd degree AV block chronic Bradycardia chronic CAD (coronary artery disease) chronic Hypomagnesemia resolved 2nd degree AV block chronic Bradycardia chronic Chronic diastolic (congestive) heart failure chronic Essential hypertension chron ic Pacemaker chronic Hospital discharge follow-up noneactive Centrilobular emphysema acut e History of tobacco abuse acu te residential (current) use of inhaled steroids acute Obstructive sleep apnea acut e Solitary pulmonary nodule [place] [facility] Work Phone: Evaluation note* Diagnosis Onset Date Resolution Status CAD (coronary artery disease) chronic Dyspnea on exertion noneacti ve Bradycardia noneactive Muscle cramp noneactive Upper back pain noneactive 2nd degree AV block noneacti ve Chest pain noneactive Hypomagnesemia noneactive 2nd degree AV block chronic CAD (coronary artery disease) chronic Hypomagnesemia resolved 2nd degree AV block chronic Chronic diastolic (congestive) heart failure chronic Essential hypertension chron ic Hospital discharge follow-up noneactive Centrilobular emphysema acut e History of tobacco abuse acu te residential (current) use of inhaled steroids acute Obstructive sleep apnea acut e Solitary pulmonary nodule ac [place] Chronic diastolic (congestive) heart failure chronic Essential hypertension chron ic Mild pulmonary hypertension chronic Hypomagnesemia noneactive [facility] Work Phone: Evaluation note* Diagnosis Onset Date Resolution Status Centrilobular emphysema acut e History of tobacco abuse acu te residential (current) use of inhaled steroids acute Obstructive sleep apnea acut e Solitary pulmonary nodule ac [place] Chronic diastolic (congestive) heart failure chronic Essential hypertension chron ic Mild pulmonary hypertension chronic Hypomagnesemia noneactive Irritable bowel syndrome with diarrhea acute [facility] Work Phone: Evaluation note* Diagnosis Primary hypertension- Primary Unspecified essential hypertension Pacemaker reprogramming/check Fitting and adjustment of cardiac pacemaker [facility] Diagnosis Onset Date Resolution Status Abdominal pain acute Bile acid malabsorption syndrome acute Irritable bowel syndrome with diarrhea acute Chronic diastolic (congestive) heart failure chronic Shortness of breath noneacti ve [facility] Work Phone: Evaluation note* Diagnosis Onset Date Resolution Status Abdominal pain acute Bile acid malabsorption syndrome acute Irritable bowel syndrome with diarrhea acute Chronic diastolic (congestive) heart failure chronic Shortness of breath noneacti ve Abdominal pain acute GERD (gastroesophageal reflux disease) noneactive IBS (irritable bowel syndrome) noneactive [facility] Work Phone: Evaluation note* Diagnosis Traumatic syrinx (CMS/HCC)- Primary Muscle spasm Spasm of muscle Cervical radiculopathy Brachial neuritis or radiculitis nos documented in this encounter [facility]* Diagnosis Primary hypertension- Primary Unspecified essential hypertension High degree atrioventricular block Atrioventricular block, unspecified Mild coronary artery disease Left bundle branch block (LBBB) on electrocardiogram Symptomatic bradycardia Other specified cardiac dysrhythmias Chronic obstructive pulmonary disease, unspecified COPD type (HCC) KATELYN (obstructive sleep apnea) Obstructive sleep apnea (adult) (pediatric) Chronic diastolic congestive heart failure (HCC) Chronic diastolic heart failure Pacemaker reprogramming/check Fitting and adjustment of cardiac pacemaker [facility] Narrative - ReportedNoAgRobotics Other [employer] general Narrative - Reported* Type Description Date Medical History COPD Medical History HTN Medical History GERD Medical History CAD Medical History tachcardia Medical History obstructive sleep apnea Medical History Multiple drug allergies Medical History IBS Medical History polypharmacy Medical History dry eye syndrome Medical History Esophageal dysmotilities Medical History osteoporosis Medical History scoliosis Medical History KATELYN Surgical History cholecystectomy 2013 Surgical History cardiac cath 2012 Surgical History bowel resection for volvulous - Dr. Gutiérrez Surgical History EGD Surgical History heria Repair, abdominal X5 Surgical History ERCP with stent following daysi cystectomy Surgical History foot surgery 2017 Hospitalization History hospitalizations Hospitalization History pneumonia twice in same year 2007 Hospitalization History [facility] 04/2020 [facility] Other [employer] general Narrative - ReportedNo[employer] Other [employer] general Narrative - Reported* Type Description Date Medical History COPD Medical History HTN Medical History GERD Medical History CAD Medical History tachcardia Medical History obstructive sleep apnea Medical History Multiple drug allergies Medical History IBS Medical History polypharmacy Medical History dry eye syndrome Medical History Esophageal dysmotilities Medical History osteoporosis Medical History scoliosis Medical History KATELYN Surgical History cholecystectomy 2013 Surgical History cardiac cath 2012 Surgical History bowel resection for blayneulous - Dr. Gutiérrez Surgical History EGD Surgical History heria Repair, abdominal X5 Surgical History ERCP with stent following daysi cystectomy Surgical History foot surgery 2017 Surgical History [facility] Hospitalization History hospitalizations Hospitalization History pneumonia twice in same year 2007 Hospitalization History Urgent [facility] [place] 04/2020 [facility] Other Hisytqp general Narrative - ReportedNortCarbonlights Solutions Other Hisfwdi general Narrative - Reported* Type Description Date Medical History COPD Medical History HTN Medical History GERD Medical History CAD Medical History tachcardia Medical History obstructive sleep apnea Medical History Multiple drug allergies Medical History IBS Medical History polypharmacy Medical History dry eye syndrome Medical History Esophageal dysmotilities Medical History osteoporosis Medical History scoliosis Medical History KATELYN Medical History fx rt foot Surgical History cholecystectomy 2013 Surgical History cardiac cath 2012 Surgical History bowel resection for blayneulous - Dr. Gutiérrez Surgical History EGD Surgical History heria Repair, abdominal X5 Surgical History ERCP with stent following daysi cystectomy Surgical History foot surgery 2017 Surgical History [facility] Surgical History cataract 06/2022 Surgical History laser therapy Hospitalization History hospitalizations Hospitalization History pneumonia twice in same year 2007 Hospitalization History Ur[facility] [place] 04/2020 Hospitalization History [facility] ER fx right foot 09/10 023 [facility] Other Hisld[facility] general Narrative - Reported* Type Description Date Medical History COPD Medical History HTN Medical History GERD Medical History CAD Medical History tachcardia Medical History obstructive sleep apnea Medical History Multiple drug allergies Medical History IBS Medical History polypharmacy Medical History dry eye syndrome Medical History Esophageal dysmotilities Medical History osteoporosis Medical History scoliosis Medical History KATELYN Medical History fx rt foot Surgical History cholecystectomy 2013 Surgical History cardiac cath 2012 Surgical History bowel resection for volvulous - Dr. Gutiérrez Surgical History EGD Surgical History heria Repair, abdominal X5 Surgical History ERCP with stent following daysi cystectomy Surgical History foot surgery 2017 Surgical History [facility] Surgical History cataract 06/2022 Surgical History laser therapy Surgical History Rick. Carotid surgery 06/2023 Hospitalization History hospitalizations Hospitalization History pneumonia twice in same year 2007 Hospitalization History Urgent [facility] 04/2020 Hospitalization History [facility] ER fx right foot 09/10 023 [facility] Other Reason for referral (narrative)* Outpatient Procedure (Routine) - Authorized Specialty Diagnoses / Procedures Referred By Contac t Referred To Contact [facility] Diagnoses Primary hypertension Procedures ECG COMPLETE ECG ROUTINE ECG W/LEAST 12 LDS W/I&R Audi Tapia MD [address] [place] [address] [id number] [place] [address] Referral ID Status Reason Start Date Expiration Date Visits Requested Visits Authorized [id number] Authorized Auto-Generat ed Referral 12/16/2023 12/15/2024 1 1 [facility] for referral (narrative)* Outpatient Procedure (Routine) - Authorized Specialty Diagnoses / Procedures Referred By Contac t Referred To Contact [facility] Diagnoses Primary hypertension Procedures ECG COMPLETE ECG ROUTINE ECG W/LEAST 12 LDS W/I&R Audi Tapia MD [address] [place] [address] [id number] [place] [address] Referral ID Status Reason Start Date Expiration Date Visits Requested Visits Authorized [id number] Authorized Auto-Generat ed Referral 04/21/2024 04/21/2025 1 1 T [facility] for referral (narrative)* Outpatient Procedure (Routine) - Authorized Specialty Diagnoses / Procedures Referred By Contac t Referred To Contact [facility] Diagnoses Primary hypertension High degree atrioventricular block Mild coronary artery disease Left bundle branch block (LBBB) on electrocardiogram Symptomatic bradycardia Chronic obstructive pulmonary disease, unspecified COPD type (HCC) KATELYN (obstructive sleep apnea) Chronic diastolic congestive heart failure (HCC) Procedures ECG COMPLETE ECG ROUTINE ECG W/LEAST 12 LDS W/I&R Garland Lockett MD [address] [place] [address] [facility] [address] [place] [address] Referral ID Status Reason Start Date Expiration Date Visits Requested Visits Authorized [id number] Authorized Auto-Generat ed Referral 07/04/2025 1 1 [facility] for visit Narrativediscuss referral for pain management [facility] Other Summary Purpose Family History Relationship Condition Age at Onset Recorded Date/T vipul Not Specified No pertinent family history Unknown Relationship Condition Age at Onset Recorded Date/T vipul Not Specified No pertinent family history Unknown brother Family history of other condition Unknown father Heart disease Unknown Unknown Not Specified Malignant neoplasm Unknown Hypertension Unknown sister Malignant neoplasm Unknown Relationship Condition Age at Onset Recorded Date/T vipul Not Specified No pertinent family history Unknown brother Family history of other condition Unknown father Heart disease Unknown Unknown mother Malignant neoplasm Unknown Hypertension Unknown sister Malignant neoplasm Unknown Advance Directives Advance Directive Response Recorded Date/ Time Advance Directives No March 22, 2018 3:02pm Advance Directive Response Recorded Date/ Time Advance Directives No March 22, 2018 2:02pm Date Activated Date Inactivated Comments 11/03/2023 2:06 PM 11/05/2023 6:38 PM Question Answer Comments Full Code Order Discussed With: Patient Date Activated Date Inactivated Comments 11/03/2023 2:06 PM 11/05/2023 6:38 PM Question Answer Comments Full Code Order Discussed With: Patient Advance Directive Response Recorded Date/ Time Advance Directives Yes January 09 1:25pm Chief Complaint and Reason for Visit Chief Complaint R07.81 R06.09 Chief Complaint R07.81 R06.09 r93.89 Chief Complaint m13.0 Chief Complaint Screening R09.89 h11.31 Chief Complaint Amb Documentation swelling in the feet and ankles Reason for Visit CAD (coronary artery disease) Bradycardia Muscle cramp Chief Complaint Amb Documentation swelling in the feet and ankles r06.00 r25.2 i25.10 i27.20 Reason for Visit CAD (coronary artery disease) Dyspnea on exertion Bradycardia Muscle cramp Chief Complaint Amb Documentation swelling in the feet and ankles r06.00 r25.2 i25.10 i27.20 chest pains Reason for Visit CAD (coronary artery disease) Dyspnea on exertion Bradycardia Muscle cramp Upper back pain 2nd degree AV block Chest pain Hypomagnesemia Chief Complaint Amb Documentation swelling in the feet and ankles r06.00 r25.2 i25.[address] sent over, heart issues Reason for Visit CAD (coronary artery disease) Dyspnea on exertion Bradycardia Muscle cramp Upper back pain 2nd degree AV block Chest pain Hypomagnesemia Chest pain Chief Complaint Amb Documentation swelling in the feet and ankles r06.00 r25.2 i25.[address] sent over, heart issues Dr sent over, heart issues Dr sent over, heart issues Reason for Visit CAD (coronary artery disease) Dyspnea on exertion Bradycardia Muscle cramp Upper back pain 2nd degree AV block Chest pain Hypomagnesemia 2nd degree AV block Bradycardia Chest pain Hypertension Hypomagnesemia CAD (coronary artery disease) Heart failure Chief Complaint Amb Documentation swelling in the feet and ankles r06.00 r25.2 i25.[address] sent over, heart issues Dr sent over, heart issues Dr sent over, heart issues 1 month follow up Reason for Visit CAD (coronary artery disease) Dyspnea on exertion Bradycardia Muscle cramp Upper back pain 2nd degree AV block Chest pain Hypomagnesemia 2nd degree AV block Bradycardia CAD (coronary artery disease) Hypomagnesemia 2nd degree AV block Bradycardia Chronic diastolic (congestive) heart failure Essential hypertension [facility] discharge follow-up Chief Complaint swelling in the feet and ankles r06.00 r25.2 i25.[address] sent over, heart issues Dr sent over, heart issues Dr sent over, heart issues 1 month follow up Amb Documentation 6 mo f/u COPD,KATELYN,ABN CXR Reason for Visit CAD (coronary artery disease) Dyspnea on exertion Bradycardia Muscle cramp Upper back pain 2nd degree AV block Chest pain Hypomagnesemia 2nd degree AV block Bradycardia CAD (coronary artery disease) Hypomagnesemia 2nd degree AV block Bradycardia Chronic diastolic (congestive) heart failure Essential hypertension [facility] discharge follow-up Centrilobular emphysema History of tobacco abuse residential (current) use of inhaled steroids Obstructive sleep apnea Solitary pulmonary nodule Chief Complaint swelling in the feet and ankles r06.00 r25.2 i25.[address] sent over, heart issues Dr sent over, heart issues Dr sent over, heart issues 1 month follow up Amb Documentation 6 mo f/u COPD,KATELYN,ABN CXR 6 MONTH FOLLOW-UP Reason for Visit CAD (coronary artery disease) Dyspnea on exertion Bradycardia Muscle cramp Upper back pain 2nd degree AV block Chest pain Hypomagnesemia 2nd degree AV block CAD (coronary artery disease) Hypomagnesemia 2nd degree AV block Chronic diastolic (congestive) heart failure Essential hypertension Hospital discharge follow-up Centrilobular emphysema History of tobacco abuse residential (current) use of inhaled steroids Obstructive sleep apnea Solitary pulmonary nodule Chronic diastolic (congestive) heart failure Essential hypertension Mild pulmonary hypertension Hypomagnesemia Chief Complaint Amb Documentation 6 mo f/u COPD,KATELYN,ABN CXR 6 MONTH FOLLOW-UP Amb Documentation Amb Documentation ! year follow up Reason for Visit Centrilobular emphys robin History of tobacco abuse residential (current) use of inhaled steroids Obstructive sleep apnea Solitary pulmonary nodule Chronic diastolic (congestive) heart failure Essential hypertension Mild pulmonary hypertension Hypomagnesemia Irritable bowel syndrome with diarrhea Chief Complaint Amb Documentation ! year follow up not feeling well I50.32 R06.02 Reason for Visit Abdominal pain Bile acid malabsorption syndrome Irritable bowel syndrome with diarrhea Chronic diastolic (congestive) heart failure Shortness of breath Chief Complaint Amb Documentation ! year follow up not feeling well I50.32 R06.02 1 mo f/u- Ibs-d Reason for Visit Abdominal pain Bile acid malabsorption syndrome Irritable bowel syndrome with diarrhea Chronic diastolic (congestive) heart failure Shortness of breath Abdominal pain GERD (gastroesophageal reflux disease) IBS (irritable bowel syndrome) Chief Complaint ! year follow up not feeling well I50.32 R06.02 1 mo f/u- Ibs-d Z12.31 Reason for Visit Abdominal pain Bile acid malabsorption syndrome Irritable bowel syndrome with diarrhea Chronic diastolic (congestive) heart failure Shortness of breath Abdominal pain GERD (gastroesophageal reflux disease) IBS (irritable bowel syndrome) Reason for Referral Reason Wants to see Dr. 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) Referral Organization [facility] Family Saranya [place] Referring Provider First Name Lisa Referring Provider Last Name Gladys Referring Provider Specialty Family Prac krishan Referred Organization [facility] Referred Address ,[place], [place],[address] Referred Provider Specialty Neurology Referral Priority Routine Additional Source Comments INFORMATION SOURCE (unrecogn ized section and content) DATE CREATED AUTHOR 08/22/2019 [facility] DATE CREATED AUTHOR AUTHOR'S ORGANIZ ATION 10/05/2022 [facility] DATE CREATED AUTHOR AUTHOR'S ORGANIZ ATION 09/06/2023 [facility] DATE CREATED AUTHOR AUTHOR'S ORGANIZ ATION 04/05/2024 [facility] DATE CREATED AUTHOR AUTHOR'S ORGANIZ ATION 05/24/2024 [facility] DATE CREATED AUTHOR AUTHOR'S ORGANIZ ATION 06/30/2024 [facility] DATE CREATED AUTHOR AUTHOR'S ORGANIZ ATION 07/02/2024 [facility] d[facility] Special[facility] EPIC REASON FOR VISIT (unrecogniz ed section and content) Reason Comments Patient Question Reason Comments Med Change Request Reason Onset Date Comments Transition Of Care 11/08/2023 TCM Pharmacy- Hospital discharge 11/05/23 Reason Comments Follow Up Phone Call RC follow up call a ll clear. Reason Comments Patient Question Patient had device i mplanted last Thrusday and she states having swelling. Wants to know, if it is okay to use ice pack. Please call her at [phone]. Reason Comments Post Dc Program Call - Needs Jackelin calvo limitation question Reason Comments Courtesy call Device survey Reason Comments Appointment Reason Comments Patient Update Source Comments (unrecognize d section and content) In the event this informatio n is protected by the Federal Confidentiality of Alcohol and Drug Abuse Patient Records regulations: The Federal rules restrict any use of the information to criminally investigate or prosecute any alcohol or drug abuse patient.[facility] the event this information is protected by the Federal Confidentiality of Alcohol and Drug Abuse Patient Records regulations: The Federal rules restrict any use of the information to criminally investigate or prosecute any alcohol or drug abuse patient.[facility] the event this information is protected by the Federal Confidentiality of Alcohol and Drug Abuse Patient Records regulations: The Federal rules restrict any use of the information to criminally investigate or prosecute any alcohol or drug abuse patient.[facility] the event this information is protected by the Federal Confidentiality of Alcohol and Drug Abuse Patient Records regulations: The Federal rules restrict any use of the information to criminally investigate or prosecute any alcohol or drug abuse patient.[facility] the event this information is protected by the Federal Confidentiality of Alcohol and Drug Abuse Patient Records regulations: The Federal rules restrict any use of the information to criminally investigate or prosecute any alcohol or drug abuse patient.[facility] the event this information is protected by the Federal Confidentiality of Alcohol and Drug Abuse Patient Records regulations: The Federal rules restrict any use of the information to criminally investigate or prosecute any alcohol or drug abuse patient.[facility] the event this information is protected by the Federal Confidentiality of Alcohol and Drug Abuse Patient Records regulations: The Federal rules restrict any use of the information to criminally investigate or prosecute any alcohol or drug abuse patient.[facility] the event this information is protected by the Federal Confidentiality of Alcohol and Drug Abuse Patient Records regulations: The Federal rules restrict any use of the information to criminally investigate or prosecute any alcohol or drug abuse patient.[facility] the event this information is protected by the Federal Confidentiality of Alcohol and Drug Abuse Patient Records regulations: The Federal rules restrict any use of the information to criminally investigate or prosecute any alcohol or drug abuse patient.[facility] the event this information is protected by the Federal Confidentiality of Alcohol and Drug Abuse Patient Records regulations: The Federal rules restrict any use of the information to criminally investigate or prosecute any alcohol or drug abuse patient.[facility] the event this information is protected by the Federal Confidentiality of Alcohol and Drug Abuse Patient Records regulations: The Federal rules restrict any use of the information to criminally investigate or prosecute any alcohol or drug abuse patient.[facility] the event this information is protected by the Federal Confidentiality of Alcohol and Drug Abuse Patient Records regulations: The Federal rules restrict any use of the information to criminally investigate or prosecute any alcohol or drug abuse patient.[facility] the event this information is protected by the Federal Confidentiality of Alcohol and Drug Abuse Patient Records regulations: The Federal rules restrict any use of the information to criminally investigate or prosecute any alcohol or drug abuse patient.[facility] the event this information is protected by the Federal Confidentiality of Alcohol and Drug Abuse Patient Records regulations: The Federal rules restrict any use of the information to criminally investigate or prosecute any alcohol or drug abuse patient.[facility] the event this information is protected by the Federal Confidentiality of Alcohol and Drug Abuse Patient Records regulations: The Federal rules restrict any use of the information to criminally investigate or prosecute any alcohol or drug abuse patient.[facility] Care Teams (unrecognized sec tion and content) Team Status: Active Member Role Status Dates Lisa Graham DO Primary Care Provider Active Team Status: Inactive Member Role Status Dates Lisa Graham DO Primary Care Provider Active Start: March 28, 2024 End: March 28, 2024 Marco Antonio Llamas APRN Attending Provider Active Start: March 28, 2024 End: March 28, 2024 Team Status: Inactive Member Role Status Dates Lisa Graham DO Primary Care Provider Active Start: April 24, 2024 End: April 24, 2024 Madeline Duffy APRN Attending Provider Active Start: April 24, 2024 End: April 24, 2024 Team Status: Inactive Member Role Status Dates Lisa Graham DO Primary Care Provider Active Start: May 01, 2024 End: May 01, 2024 Marco Antonio Llamas APRN Attending Provider Active Start: May 01, 2024 End: May 01, 2024 Team Status: Inactive Member Role Status Dates Lisa Graham DO Primary Care Provider Active Start: May 22, 2024 End: May 22, 2024 Madeline Duffy , MEDICARE CONTACT SPECIALIST Attending Provider Active Start: May 22, 2024 End: May 22, 2024 Team Status: Active Member Role Status Dates Lisa Graham , DO Primary Care Provider Active Start: January 05, 2024 YOSELIN Arce Attending Provider Active Start: January 05, 2024 Team Status: Inactive Member Role Status Dates Lisa Graham , DO Primary Care Provider Active Start: January 10, 2024 End: January 10, 2024 Joce Hernandez DO Attending Provider Active St art: January 10, 2024 End: January 10, 2024 DME Active Start: January End: January 10, 2024 Team Status: Inactive Member Role Status Dates Lisa Graham , DO Primary Care Provi bang, Attending Provider Active Start: January 13, 2024 End: January 13, 2024 Team Status: Active Member Role Status Dates Lisa Graham , DO Primary Care Provider Active Start: January 19, 2024 YOSELIN Arce Attending Provider Active Start: January 19, 2024 Team Status: Active Member Role Status Dates Lisa Graham , DO Primary Care Provider Active Start: February 04, 2024 YOSELIN Arce Attending Provider Active Start: February 04, 2024 Team Status: Inactive Member Role Status Dates Lisa Graham , DO Primary Care Provi bang, Attending Provider Active Start: October 27, 2023 End: October 27, 2023 Team Status: Inactive Member Role Status Dates Lisa Graham , DO Primary Care Provi bang, Attending Provider Active Start: November 01, 2023 End: November 01, 2023 Team Status: Inactive Member Role Status Dates Lisa Graham , DO Primary Care Provi bang, Admit Provider, Attending Provider Active Start: November 01, 2023 End: November 03, 2023 Lambert Abraham , DO Emergency Provider Active Sta rt: November 01, 2023 End: November 03, 2023 Sylvia Chen RN Other Provider Active Star t: November 01, 2023 End: November 03, 2023 Rober Damico MD Other Provider Active Start: 2023 End: November 03, 2023 Dolores Frausto MD Other Provider Active Start: October 31 End: November 03, 2023 Emmanuelle Tipton MD Other Provider Active Start: November 01, 2023 End: November 03, 2023 Team Status: Active Member Role Status Dates Lisa Graham , DO Primary Care Provi bang, Admit Provider, Other Provider Active Start: November 02, 2023 End: November 03, 2023 Lambert Abraham , DO Emergency Provider Active Sta rt: November 02, 2023 End: November 03, 2023 Sylvia Chen RN Other Provider Active Star t: November 02, 2023 End: November 03, 2023 Rober Damico MD Other Provider Active Start: [facility] 2023 End: November 03, 2023 Dolores Frausto MD Other Provider Active Start: November 01 End: November 03, 2023 Emmanuelle Tipton MD Attending Provider, Other Provider Active Start: November 02, 2023 End: November 03, 2023 Team Status: Active Member Role Status Dates Lisa Graham , DO Primary Care Provi bang, Admit Provider, Attending Provider, Other Provider Active Start: November 03, 2023 End: November 03, 2023 Lambert Abraham , DO Emergency Provider Active Sta rt: November 03, 2023 End: November 03, 2023 Sylvia Chen RN Other Provider Active Star t: November 03, 2023 End: November 03, 2023 Rober Damico MD Other Provider Active Start: [facility] 2023 End: November 03, 2023 Dolores Frausto MD Other Provider Active Start: November 02 End: November 03, 2023 Emmanuelle Tipton MD Other Provider Active Start: November 03, 2023 End: November 03, 2023 Team Status: Inactive Member Role Status Dates Lisa Graham DO Primary Care Provi bang, Attending Provider Active Start: November 29, 2023 End: November 29, 2023 Team Status: Active Member Role Status Dates Lisa Graham DO Primary Care Provider Active Start: October 11, 2023 Britney Castellano LPN Attending Provider Active Start: October 11, 2023 [employer]essen Department Manager Relationship Specialty Start Date End Date Madeline Hernandez PCP - General Family Medicine 09/21/13 Terrell Rodriguez [facility] 10/29/15 Team Status: Inactive Member Role Status Dates Lisa Graham , DO Primary Care Provider, Attending Provider Active Team Status: Inactive Member Role Status Dates Lisa Graham , DO Primary Care Provider Active Piyush Bo MD Attending Provider Active [employer] Department Manager Relationship Specialty Start Date End Date Lisa Graham MD [address] [facility] [place] [address] PCP - General Family Medicine 12/24/22 [employer] Department Manager Relationship Specialty Start Date End Date Lisa Graham MD [address] [facility] [place] [address] PCP - General Family Medicine 12/24/22 Team Status: Active Member Role Status Dates Lisa Graham , DO Primary Care Provi bang, Attending Provider Active Start: November 01, 2023 Team Status: Active Member Role Status Dates Lisa Graham , DO Primary Care Provi bang, Admit Provider, Attending Provider Active Start: November 01, 2023 Lambert Abraham , DO Emergency Provider Active Sta rt: November 01, 2023 Team Status: Active Member Role Status Dates Lisa Graham , DO Primary Care Provi bang, Admit Provider, Other Provider Active Start: November 02, 2023 Lambert Abraham DO Emergency Provider Active Sta rt: November 02, 2023 Sylvia Chen RN Other Provider Active Star t: November 02, 2023 Rober Damico MD Other Provider Active Start: Delon hudson 2023 Dolores Frausto MD Other Provider Active Start: November 01 Emmanuelle Tipton MD Attending Provider, Other Provider Active Start: November 02, 2023 Team Status: Active Member Role Status Dates Lisa Graham , DO Primary Care Provi bang, Admit Provider, Attending Provider, Other Provider Active Start: November 03, 2023 Lambert Abraham DO Emergency Provider Active Sta rt: November 03, 2023 Sylvia Chen RN Other Provider Active Star t: November 03, 2023 Rober Damico MD Other Provider Active Start: Delon 2023 Dolores Frausto MD Other Provider Active Start: November 02 Emmanuelle Tipton MD Other Provider Active Start: November 03, 2023 [employer] Department Manager Relationship Specialty Start Date End Date Lisa Graham DO [address] [place] [address] PCP - General Family Medicine 11/03/23 Terrell Rodriguez Urology 10/29/15 Foster Gutierrez [facility] [address] [place] [address] Transitional Care Pharmacist Pharmacy 11/08/23 12/08/23 [employer] Department Manager Relationship Specialty Start Date End Date Lisa Graham DO [address] [address] PCP - General Family Medicine 11/03/23 Terrell Rodriguez Urology 10/29/15 [employer] Department Manager Relationship Specialty Start Date End Date Lisa Graham DO [address] [place] [address] PCP - General Family Medicine 11/03/23 Terrell Rodriguez Urology 10/29/15 [employer] Department Manager Relationship Specialty Start Date End Date Lisa Graham DO [address] [place] [address] PCP - General Family Medicine 11/03/23 Terrell Rodriguez Urology 10/29/15 [employer] Department Manager Relationship Specialty Start Date End Date Lisa Graham, [address] [place] [address] PCP - General Family Medicine 11/03/23 Terrell Rodriguez Urology 10/29/15 [employer] Department Manager Relationship Specialty Start Date End Date Lisa Graham DO [address] [place] [address] PCP - General Family Medicine 11/03/23 Terrell Rodriguez Urology 10/29/15 Team Status: Active Member Role Status Dates Lisa Graham , Primary Care Provider Active Start: April 24, 2024 Madeline Duffy APRN Attending Provider Active Start: April 24, 2024 [employer] Department Manager Relationship Specialty Start Date End Date Lisa Graham, [address] [place] [address] PCP - General Family Medicine 11/03/23 Terrell Rodriguez Urology 10/29/15 [employer] Department Manager Relationship Specialty Start Date End Date Lisa Graham MD [address] [place] [address] PCP - General Family Medicine 12/24/22 [employer] Department Manager Relationship Specialty Start Date End Date Lisa Graham MD [address] [place] [id number] PCP - General Family Medicine 12/24/22 [employer] Department Manager Relationship Specialty Start Date End Date Lisa Graham DO [address] [facility] [address] PCP - General Family Medicine 11/03/23 Terrell Rodriguez Urology 10/29/15 Goals (unrecognized section and content) Goals may be documented in a n alternate section FOR RECORDS PERTAINING TO PATIENTS WHO ARE OR HAVE BEEN ENROLLED IN A CHEMICAL DEPENDENCY/SUBSTANCEABUSE PROGRAM, SOME INFORMATION MAY BE OMITTED. This clinical summary was aggregated from multiple sources. Caution should be exercised in using it in the provision of clinical care. This summary normalizes information from multiple sources, and as a consequence, information in this document may materially change the coding, format and clinical context of patient data. In addition, data may be omitted in some cases. CLINICAL DECISIONS SHOULD BE BASED ON THE PRIMARY CLINICAL RECORDS. [employer] provides no warranty or guarantee of the accuracy or completeness of information in this document.
[2024-07-07 09:39] LABS: Basophils Absolute Auto 0.1 10^3/uL (0.0-0.1); Basophils Percent Auto 1.3 % (0.2-2.0); Eosinophils Absolute Auto 0.2 10^3/uL (0.0-0.7); Eosinophils Percent Auto 2.1 % (0.9-7.0); Hematocrit 41.4 % (36.0-48.0); Hemoglobin 13.6 g/dL (12.0-16.0); Immature Granulocytes Abs Auto 0.09 10^3/uL (0.00-0.03); Immature Granulocytes Pct Auto 1.2 % (0.0-0.5); Lymphocytes Absolute Auto 2.7 10^3/uL (1.2-3.8); Lymphocytes Percent Auto 35.1 % (20.5-60.0); Mean Corpuscular HGB Conc 32.9 g/dL (29.9-35.2); Mean Corpuscular Hemoglobin 31.8 pg (26.7-34.0); Mean Corpuscular Volume 96.7 fL (81.0-99.0); Mean Platelet Volume 9.4 fL (9.5-13.5); Monocytes Absolute Auto 0.6 10^3/uL (0.3-0.8); Monocytes Percent Auto 7.5 % (1.7-12.0); Neutrophils Absolute Auto 4.1 10^3/uL (1.4-6.5); Neutrophils Percent Auto 52.8 % (43.0-75.0); Platelet Count 312 10^3/uL (150-450); Red Blood Count 4.28 10^6/uL (4.20-5.40); Red Cell Distribution Width 13.2 % (11.0-15.0); White Blood Count 7.8 10^3/uL (4.0-11.0)
[2024-07-07 10:43] LABS: Alanine Aminotransferase 21 U/L (14-59); Albumin Globulin Ratio 1.1; Albumin Level 3.6 g/dL (3.4-5.0); Alkaline Phosphatase 59 U/L (46-116); Anion Gap 14.4; Aspartate Amino Transferase 13 U/L (15-37); Bilirubin Total 0.5 mg/dL (0.2-1.0); Calcium 8.9 mg/dL (8.5-10.1); Carbon Dioxide 24.9 mmol/L (21.0-32.0); Chloride 109 mmol/L (98-107); Chol HDL Ratio 2.4; Cholesterol 140 mg/dL (<=200); Estimated GFR (African America >60 (>=60 mL/min/1.73m^2); Estimated GFR (Non-African Ame 55 (>=60 mL/min/1.73m^2); Globulin 3.2 g/dL; Glucose 93 mg/dL (74-106); HDL Cholesterol 58 mg/dL (40-60); Magnesium 1.8 mg/dL (1.8-2.4); Potassium 4.3 mmol/L (3.5-5.1); Sodium 144 mmol/L (136-145); Total Protein 6.8 g/dL (6.4-8.2); Triglycerides 178 mg/dL (<=150); VLDL CHOLESTEROL 35.6 mg/dL
== END 2024-07-07 08:55 | disposition home or self-care (01) ==
LOC: LAB 08:56
DX: E78.2 Mixed hyperlipidemia (principal); I10 Essential (primary) hypertension; I50.32 Chronic diastolic (congestive) heart failure; I48.91 Unspecified atrial fibrillation; I27.20 Pulmonary hypertension, unspecified; E55.9 Vitamin D deficiency, unspecified
CPT/HCPCS: 36415; 80053; 80061; 82306; 83735; 85025

== ENCOUNTER 2025-07-17 12:12 | Outpatient (OUT) | payer MEDICARE, SELFPAY ==
--- OUTSIDE RECORDS SUMMARY | 2025-07-17 12:21 | XMS_ITS | CCD ---
Author Organization [facility] Care Team Providers Care Engineering Technologist Name Role Phone Lisa Graham Unavailable Piyush Bo Unavailable Teto Veloz Unavailable GladysLisa clark Unavailable Sebastien Duffy Unavailable Sebastien Quesada Primary Care Provider [phone] Terrell Rodriguez Unavailable [phone] GLADYS, LISA Primary Care Unavailable JOSEP, JAMIA Admitting Unavailable JOSEP, JAMIA Consulting Unavailable JOSEP, JAMIA Attending Unavailable YENY CARA Attending Unavailable MINERVA HERRERA Consulting Unavailable GLADYS, [...] Care Provider DO Lisa Graham Attending Provider [phone] MD Piyush Bo Attending Provider Mick Patterson Unavailable Marco Antonio Llamas Unavailable DO Lisa Garham Primary Care Provider Gladys, DO Lisa Pastrana Attending Provider Gladys, DO Lisa Pastrana Primary Care Provider Gladys, DO Lisa Pastrana Attending Provider EPIFANIO LOZADA Attending Unavailable JAMIA CAR Attending Unavailable DEN KEY Attending Unavailable NICOLE BECKHAM Attending Unavailable Lisa Graham MD Primary Care Provider Gladys, DO Lisa Pastrana Primary Care Provider Gladys, DO Lisa Pastrana Attending Provider Gladys, DO Lisa Pastrana Admit Provider Leigh, DO Lambert Jernigan Emergency Provider Terrell Rodriguez Unavailable [phone] Lisa Graham DO Primary Care Provider Unavailable Foster Gutierrez RPh Unavailable GARETH Chen Other Provider Unavailable MD Rober Damico Other Provider MD Dolores Frausto Other Provider MD Emmanuelle Tipton Other Provider Lisa Graham DO Primary Care Provider Unavailable Gladys, DO Lisa Pastrana Primary Care Provider AWILDA Duffy Attending Provider [phone] Lisa Graham DO Primary Care Provider Lisa Graham DO Primary Care Provider Emmanuelle Tipton MD Attending Provider Lisa Graham MD Primary Care Provider Lisa Graham DO Primary Care Provider Marco Antonio Llamas APRN Attending Provider Sebastien Duffy APRN Attending Provider Emmanuelle Tipton MD Other Provider Minesh Arciniega MD Attending Provider Yao PAREDES, Lisa Attending Provider JR. BRYSON, DOLORES Hopkins Attending Unavaila LISA Prado Attending Unavailable LISA SAMAYOA Referring Unavailable BARTOLO RAMÍREZ Attending Unavailable JR. BRYSON, DOLORES Hopkins Attending Unavaila BARTOLO Miles Attending Unavailable JR. BRYSON, DOLORES Hopkins Attending Unavaila ricardo MASSEY JR., DOLORES Hopkins Referring Unavaila Emmanuelle Barger MD Attending Provider Gladys DO, Lisa N Primary Care Provider [phone] Marco Antonio Llamas APRN Attending Provider Danuta LEAL, Emmanuelle Ramos Unavailable UnavaANDREA Christianson Attending Unavailable ANDREA DALEY Referring Unavailable GLADYS, LISA N Primary Care Unavailable ANDREA DALEY Attending Unavailable ANDREA DALEY. Referring Unavailable GLADYS, LISA N Primary Care Unavailable GLADYS, LISA DARA Primary Care Unavailab le SROUBEK, GARLAND Referring Unavailable GLADYS, LISA DARA Primary Care Unavailab le SROUBEK, GARLAND Attending Unavailable SROUBEK, GARLAND Referring Unavailable SROUBEK, GARLAND Referring Unavailable GLADYS, LISA DARA Primary Care Unavailab ANDREA Martinez Attending Unavailable GLADYS, LISA N Referring Unavailable GLADYS, LISA N Primary Care Unavailable Gladys DO, Lisa N Primary Care Provider [phone] Emmanuelle Tipton MD Other Provider Minesh Arciniega MD Attending Provider Sebastien Duffy APRN Attending Provider [phone] Gladys DO, Lisa N Primary Care Provider Gladys, Lisa N Primary Care Unavailable Emmanuelle Tipton Attending Unavailable Emmanuelle Tipton Admitting Unavailable Lisa Samayoa Attending Unavailable Yao, Lisa Admitting Unavailable Gladys, Lisa N Primary Care Unavailable Emmanuelle Tipton Admitting Unavailable Gladys, Lisa N Primary Care Unavailable Danuta, Emmanuelle Attending Unavailable Gladys, Lisa N Primary Care Unavailable Danuta, Emmanuelle Admitting Unavailable Danuta, Emmanuelle Attending Unavailable Scovanner, Marco Antonio M Attending Unavailable Gladys, Lisa N Primary Care Unavailable Scovanner, Marco Antonio M Admitting Unavailable Gladys, Lisa N Primary Care Unavailable Scovanner, Marco Antonio M Attending Unavailable Scovanner, Marco Antonio M Admitting Unavailable Gladys, Lisa N Primary Care Unavailable Danuta, Emmanuelle Admitting Unavailable Danuta, Emmanuelle Attending Unavailable Gladys, Lisa N Primary Care Unavailable Danuta, Emmanuelle Attending Unavailable Danuta, Emmanuelel Admitting Unavailable Gladys, Lisa N Primary Care Unavailable Scovanner, Marco Antonio M Admitting Unavailable Scovanner, Marco Antonio M Attending Unavailable STEPANIC, DOLORES C Attending Unavailable Gladys, Lisa Primary Care Unavailable STEPANIC, DOLORES C Admitting Unavailable STEPANIC, DOLORES C Attending Unavailable Gladys, Lisa Primary Care Unavailable STEPANIC, DOLORES C Admitting Unavailable Allergies Allergy ClassificationReported Allergen(s)Allergy TypeDate of OnsetReaction(s) Facility (20 sources)Amoxicillin; Translations: [AMOXICILLIN]Drug Cyszfvp78-63-9503[facility] ([facility] sources)Azithromycin; Translations: [AZITHROMYCIN]Drug Wtcoghm74-38-4300 [facility] (20 sources)Bacitracin; Translations: [BACITRACIN]Drug Igmcaij10-63-1821XnaqlpfAdena Pike Medical Center (20 sources)Bacitracin / Neomycin / Polymyxin BDrug AllergyUnkHannibal Regional Hospital KonTEM Other (20 sources)Chlorhexidine; Translations: [CHLORHEXIDINE]Drug Adedzoa12-02-7330 [facility] (20 sources)Clindamycin; Translations: [CLINDAMYCIN]Drug Uqdmnon57-32-1501Lectc, Unknown, Shortness Of BreathSelect [facility] (20 sources)Latex; Translations: [LATEX]Propensity to adverse reactions 64-51-0841MhjwQbzodrumzSelect Medical [facility] (20 sources)meloxicam; Translations: [Mobic]Drug Aosesbj16-20-3715VfxgvqwRxlKettering Health (20 sources)metroNIDAZOLE; Translations: [METRONIDAZOLE]Drug Tzjxvaa25-64-8446 Unknown, [facility] (20 sources)SulfacetamideDrug Roepngo15-93-7381Lquvlek, Unknown Reaction [facility] (20 sources)bacitracin / neomycin / polymyxin b; Translations: [NLVTMQVI-PBBKAYQSDE-CBHUOORCD]Drug Zpoqdif59-48-0031UkbcDmywrtaik Clinic (20 sources)meloxicam; Translations: [MELOXICAM]Drug Lysqpeh57-90-2304Lixp, Itching, HivesCleselect medical specialty hospital [facility] (20 sources)metroNIDAZOLE; Translations: [METRONIDAZOLE HCL]Drug Allergy 58-68-9867Lzce, ItchingCleveland Clinic (20 sources)Sulfonamides (Antibiotic); Translations: [SULFA (SULFONAMIDE ANTIBIOTICS)]Drug Uybfrsm90-04-8882Oeld, Hives, [facility] (1 source)AmoxicillinDrug Mlxlden60-56-6924P[facility] Rep[facility] (1 source)BacitracinDrug Whpdrac43-09-1985YvbOhiohealth Nelsonville [facility] Rep[facility] (1 source)ChlorhexidineDrug Winxtho24-79-2577TlxOhiohealth Nelsonville [facility] Center Repository (1 source)ClindamycinDrug Erwzoeg92-70-4162QsyOhiohealth Nelsonville [facility] Center Repository (1 source)LatexDrug allergy (disorder)01-74-2467ZgfOhiohealth Nelsonville [facility] Center Repository (1 source)metroNIDAZOLEDrug Bujhbsc47-68-5960KsvOhiohealth Nelsonville [facility] Center Repository (20 sources)Neomycin; Translations: [NEOMYCIN]Drug Cypkwim87-71-9018HgwnTuh [facility] (1 source)Sulfonamides (Antibiotic)Drug allergy (disorder)46-14-5078TsnOhiohealth Nelsonville Health Center Repository (20 sources)Clavulanate; Translations: [clavulanic acid]Drug Vvlaeyy66-95-4195 [facility] (20 sources)montelukast; Translations: [MONTELUKAST]Drug Huyqdus47-93-2627EulaOhio State University [facility] (20 sources)polymyxin B; Translations: [POLYMYXIN B]Allergy to substance 71-59-4677YpnsoyoMnzlgcepkWilson Health (5 sources)Adhesive agent; Translations: [ADHESIVE]Propensity to adverse reactions to drug (disorder)10-70-9951IvhzoqiirpDayton Osteopathic Hospital Rep[facility] (20 sources)Aspirin; Translations: [ASPIRIN]Drug Wkuzkax20-56-9105QtvjaljOhioHealth Shelby Hospital Repository (5 sources)Chlorhexidine; Translations: [CHLORHEXIDINE GLUCONATE]Drug Allergy 71-62-2198FxklFrbhdawehsSouthern Ohio Medical Center Repository (20 sources)Cyproheptadine; Translations: [CYPROHEPTADINE]Drug Allvjtw69-00-0375 [facility] (20 sources)Sulfamethoxazole / Trimethoprim; Translations: [SULFAMETHOXAZOLE-TRIMETHOPRIM]Drug Vpmufjt46-60-4644XlewejnipbHarrison Community Hospital Repository (1 source)NEOSPORIN DAILY BODY; Translations: [NEOSPORIN DAILY BODY]Propensity to adverse reactions to drug (disorder)81-13-3611PjpujmfsvlHarrison Community Hospital Repository (20 sources)BACITRACIN-POLYMYXIN B; Translations: [BACITRACIN-POLYMYXIN B] Propensity to adverse reactions to drug (disorder)35-85-9689Lsfvbge, Rash [facility] (3 sources)WLZFFWLQ-LWAEQTYXVLT-NHISXFZLH; Translations: [DEDDESTO-ZRCZBDDYPXL-CDDDUTCLP]Propensity to adverse reactions to drug (disorder)33-90-6382JmftsyphzxHarrison Community Hospital Repository (20 sources)LatexAllergy to gruazpuwl63-35-6958GplngkyVHZH Healthcare (20 sources)meloxicamDrug Dpnfxrf46-78-9022WngqhcoGDPJ Healthcare (20 sources)NeomycinDrug Aycxzdb39-64-7951BivfofpDHXF Healthcare (20 sources)Wound Dressing AdhesiveDrug Hvwzgpl95-02-2023RGVG Healthcare (20 sources)Amoxicillin / Clavulanate; Translations: [AMOXICILLIN-POT CLAVULANATE]Drug Nqiwlwj45-86-4142IvfbDotyqjkmv Clinic Work Phone: (1 source)AmoxicillinDrug Mdgktif93-87-9368TtqsmlymnGenesis Hospital Repository (1 source)AzithromycinDrug Enkrjuj83-76-7387JqmcdhmsjGenesis Hospital Repository (1 source)BacitracinDrug Rgtzeml06-76-6455YczwuxdekGenesis Hospital Repository (1 source)ChlorhexidineDrug Oyhmuii71-16-4204FoojkdxclGenesis Hospital Repository (1 source)ClindamycinDrug Prksvrp26-25-1877ElmqvykdbGenesis Hospital Repository (1 source)LatexDrug allergy (disorder)74-21-8794AcixiqroxGenesis Hospital Repository (1 source)meloxicamDrug Uilamiq24-70-8472CxnabcvyiGenesis Hospital Repository (1 source)metroNIDAZOLEDrug Qizbbsx74-32-8616KztkzmknbGenesis Hospital Repository (1 source)NeomycinDrug Yopiewo49-61-5340GvxswbrtqGenesis Hospital Repository (1 source)Sulfonamides (Antibiotic)Drug allergy (disorder)17-17-3425UymlwlxgoGenesis Hospital Repository Medications Current Medications MedicationDrug Class(es)DatesSig (Normalized)Sig (Original)30 ACTUAT fluticasone furoate 0.2 MG/ACTUAT / umeclidinium 0.0625 MG/ACTUAT / vilanterol 0.025 MG/AC TUAT Dry Powder Inhaler [Trelegy] (14 sources)Start: 11-09-2591bxfh 1 puff(s) by inhalation once dailyTrelegy Ellipta 200-62.5-25 MCG/ACT 1 puff Inhalation Once a day for 90 days Feb, ActiveStart: 50-45-2202fhqmcqskhqude 500 mg oral capsule (20 sources)Start: 96-02-4650diyn 1 capsule by mouth three times dailyStart: 01-10-2024 End: 23-27-8726ragz 1 capsule by mouth every six hoursAcetaminophen 500 mg capsule Discontinued 500 MG PO Every 6 hours March 28, 2024 1:15pm May 092024 10:56amStart: 78-38-8353hfja 2 tablets by mouth every six hours as neededacetaminophen (TYLENOL) 500 mg tablet Take 2 tablets by mouth every 6 hours as needed for pain. 11/05/2023 ActiveComment on above:Take 2 tablets by mouth every 6 hours as needed for pain.acetaminophen 325 mg / HYDROcodone bitartrate 5 mg oral tablet (2 sources)Opioid AgonistStart: 12-08-2024 End: 11-16-7502zeqv 1 tablet by mouth every six hours for painHYDROcodone- acetaminophen (Converse) 5-325 MG tablet Indications: Instability of left knee joint , Effusion of left knee Take 1 tablet by mouth every 6 (six) hours if needed for severe pain for up to 3 days 12 tablet 12/08/2024 12/11/2024 Active acetaminophen 325 mg / oxyCODONE hydrochloride 5 mg oral tablet (9 sources)Opioid AgonistStart: 10-02-4860hvuAEFGXA-acetaminophen (PERCOCET) 5- 325 mg per tablet Indications: Incisional ventral hernia w obstruction Take 1 tablet by mouth every 6 (six) hours as needed for pain for up to 12 doses. Max DailyAmount: 4 tablets 12 tablet 03/24/2022 Activetake 1 tablet by mouth every eight hours as neededoxyCODONE-acetaminophen (PERCOCET) 5-325 mg tablet Take 1 tablet by mouth every 8 hours as needed for pain. Takes one half tab at night 0 Dtvtys131 actuat albuterol 0.09 mg/actuat dry powder inhaler (20 sources)beta2-Adrenergic AgonistStart: 01-10-2024 End: 59-42-1672Krwsy: 11-01-2023 End: 32-83-4259Mnnugkakc Sulfate 90 mcg/actuation aerosol powdr breath activated Discontinued 1 INH INHALATION Every 6 hours November 01, 2023 12:00am January 10, 2024 1:22pmStart: 82-95-7349Ndhokdmii Sulfate (2.5 MG/3ML) 0.083% 3 ml as needed Inhalation every 6 hrs for 30 day(s) Jan, ActiveStart: 25-87-2790Ebgts: 09-30-2018 End: 68-32-8255wwyc 1 puff(s) by inhalation every six hours as needed for wheezingAlbuterol Sulfate (Proair Hfa) 90 mcg/actuation Hfa Aerosol Inhaler Discontinued 2 PUFF INHALATION Q6H as needed for Shortness Of Breath Or Wheezing September 30, 2018 1:00am October 26, 2023 4:10pmtake 2 puff(s) by inhalation every four hours for wheezingalbuterol HFA 90 mcg/act inhaler Inhale 2 puffs every 4 (four) hours if needed for wheezing Activetake 2 puff(s) by inhalation every six hours as needed for wheezingalbuterol (PROVENTIL HFA;VENTOLIN HFA) 90 mcg/actuation inhaler Inhale 2 puffs every 6 (six) hours as needed for wheezing. ActiveALBUTEROL SULFATE (PROAIR HFA INHALATION) Inhale as instructed every 4 hours as needed. Activealbuterol 1.25 MG/3ML nebulizer solution Take 1.25 mg by nebulization. 0 ActiveALBUTEROL SULFATE (PROAIR HFA INHALATION) Inhale as instructed every 4 hours as needed. 0 ActiveComment on above:Inhale as instructed every 4 hours as needed.Albuterol-Budesonide (11 sources)Start: 72-16-6798Yabbd: 21-35-6490Mhdnwdoxz-Budesonide 90-80 mcg/actuation HFA aerosol inhaler Active 2 INH INHALATION Twice daily asneeded for shortness of breath 5.9 0 January 22, 2025 12:00am Centrilobular emphysema Centrilobular emphysema Dr. Hernandez Complies with drug therapyStart: 01-22-2025 Albuterol-Budesonide 90-80 mcg/actuation HFA aerosol inhaler Active 2 INH INHALATION Twice daily asneeded for shortness of breath 5.9 January 22, 2025 12:00am Dr. Hernandez Complies with drug therapyStart: 97-57-4230Laldute 10 MG (20 sources)take 1 tablet by mouth once dailyAllergy 10 MG 1 tablet Orally Once a day ActiveamLODIPine 5 mg oral tablet (20 sources)Dihydropyridine Calcium Channel BlockerStart: 35-73-4036xati 1 tablet by mouth once dailyStart: 01-05-2025 End: 13-19-7669eiee 1 tablet by mouth once dailyAmlodipine 5 mg tablet Discontinued 0 .ROUTE .COMPLEX 90 1 January 05, 2025 11:28am April 10, 2025 1:44pm TAKE 1 TABLET BY MOUTH EVERY DAYStart: 06-15-2022 End: 50-16-6569abgy 1 tablet by mouth once dailyAmlodipine 5 mg tablet Discontinued 5 MG PO Daily 90 90 January 19, 2024 5:05pm July 17, 2024 2:34pm 1 tablet Orally Once a dayComment on above:Take 5 mg by mouth once daily. apixaban 5 mg oral tablet (20 sources)Factor Xa InhibitorStart: 12-16-2023 End: 39-68-6754lyfn 1 tablet by mouth twice dailyAspir-81 81 MG (20 sources)take 1 tablet by mouth once dailyAspir-81 81 MG 1 tablet Orally Once a day OTC Activebaclofen 5 mg oral tablet (20 sources)gamma-Aminobutyric Acid-ergic AgonistStart: 42-01-5598rvum 1 tablet by mouth once daily at bedtimebaclofen (Lioresal) 10 MG tablet Indications: Muscle spasm TAKE 1 TABLET BY MOUTH EVERY MORNING, ATNOON, EVERY EVENING, AND AT BEDTIME 360 tablet 2 09/10/2024 ActiveStart: 08-19-2023 End: 43-30-7501qlkh 1 tablet by mouth twice daily as neededStart: 09-23-2021 End: 26-78-0603lfuq 1 tablet by mouth once daily as neededBaclofen 5 mg tablet Discontinued 5 MG PO Daily October 26, 2023 12:00am March 28, 2024 1:18pm Fr eeTextSi tablet as needed Orally Once a day; Note: Source Status: Taking; Provider: Dr Gonzaleztart: 09-30-2018 End: 34-19-1000wnnw 1 tablet by mouth three times dailybaclofen 5 mg tablet Take 10 mg by mouth three times a day. Takes 15 mg AM, 10 mg in afternoon and 15 mg PM ActiveComment on above:Take 10 mg by mouth three times daily.Take 10 mg by mouth three times a day. Takes 15 mg AM, 10 mg in afternoon and 15 mg PMbiotin 10 mg oral tablet (20 sources)Start: 07-14-3648udbi 1 tablet by mouth at bedtimeBiotin Maximum Strength 78204 MCG tablet Indications: Spinal cord disorder (HCC) , Syrinx, persistent central canal (HCC) , Traumatic syrinx (HCC) TAKE 1 TABLET (10 MG) BY MOUTH IN THE MORNING AND BEFORE BEDTIME 180 tablet 4 06/18/2023 ActiveStart: 42-54-9416awal 1 tablet by mouth once dailytake 1000 mg by mouth in the morning BIOTIN ORAL Take 1,000 mg by mouth in the morning and 1,000 mg before bedtime. Activetake 1 capsule by mouth once dailyBiotin 10,000 mcg cap Take 10,000 mcg by mouth once daily. Activetake 1000 mg by mouth twice dailyBIOTIN ORAL Take 1,000 mg by mouth 2 (two) times a day. Activetake 1 tablet by mouth every twenty-four hoursBiotin 10 MG 1 tablet Orally Once a day Dr. Ramírez Activetake 2 tablets by mouth once dailyBiotin 1000 MCG 2 tab Orally Once a day Activetake 1000 ug by mouth twice dailybiotin 1,000 mcg chew Take by mouth twice daily. 0 Activetake 2 tablets by mouth once dailyBiotin 1000 MCG 2 tab Orally Once a day Active Comment on above:Take by mouth twice daily.Take 10,000 mcg by mouth once daily. Jesus straight rail chair Lift (5 sources)Start: 15-28-8935Jqzjh straight rail chair Lift Active 0 .Route .MEDSUPPLY 1 May 09, 2025 12:00am Polyarthritis Osteoarthritis of left knee Polyarthritis, unspecified Unilateral primary osteoarthritis, left knee impaired mobility walking up and down stairs As directed for mobility going up and down stairsStart: 47-10-2641Soebf straight rail chair Lift Active 0 .Route .MEDSUPPLY May 09, 2025 12:00am As directed for mobility going up and down stairscalcium carbonate 1500 mg oral tablet (20 sources)take 1 tablet by mouth in the morningcalcium carbonate (OS-ANTONIO) 600 mg elemental (1,500 mg) tablet Take 1 tablet (600 mg total) by mouthin the morning. Active End: 98-80-7140JKUJIYO CARBONATE (TUMS ORAL) Take 2 tablets by mouth as needed (indigestion). 12/11/2024 Discontinued (Discontinued by Patient)CALCIUM CARBONATE (TUMS ORAL) Take 2 tablets by mouth as needed (indigestion). Active CALCIUM CARBONATE (TUMS ORAL) Take 2 tablets by mouth as needed (indigestion). 0 ActiveCALCIUM CARBONATE (TUMS ORAL) Take 2 tablets by mouth as needed. 0 Active take 1 tablet by mouth every twelve hoursComment on above:Take 2 tablets by mouth as needed.Take 2 tablets by mouth as needed (indigestion).Take 600 mg by mouth once daily.Cyclosporine (20 sources)Calcineurin Inhibitor ImmunosuppressantStart: 49-14-4778mzcf 1 drop(s) into the eye(s) every twelve hoursCyclosporine (Restasis) 0.05 % dropperette Active 1 DROPS EYE-BOTH Every 12 hours November 01, 2023 12:00am Complies with drug therapyStart: 91-47-7709kcko 1 drop(s) into the eye(s) every twelve hoursStart: 09-30-2018 End: 55-08-9067yubk 1 drop(s) into the eye(s) every twelve hoursCyclosporine (Restasis) 0.05 % Dropperette Discontinued 1 DROPS EYE-BOTH Q1H September 30, 2018 1:00am November 01, 2023 6:33pmStart: 30-42-6128epcj 1 drop(s) into the eye(s) every twelve hoursCyclosporine (Restasis) 0.05 % Dropperette Active 1 DROPS EYE-BOTH Q12H September 30, 2018 1:00amcycloSPORINE (Restasis) 0.05 % ophthalmic emulsion every 12 (twelve) hours Activetake 1 drop(s) into the eye(s) in the morningcycloSPORINE (RESTASIS) 0.05 % ophthalmic emulsion 1 drop in the morning and 1 drop before bedtime.Activetake 1 drop(s) into the eye(s) twice dailycycloSPORINE (RESTASIS) 0.05 % ophthalmic emulsion Use 1 Drop in both eyes twice daily. ActiveRestasis 0.05 % 1 into affected eye Ophthalmic Twice a day Activetake 1 drop(s) into the eye(s) twice dailycycloSPORINE (RESTASIS) 0.05 % ophthalmic emulsion Use 1 Drop in both eyes twice daily. 0 ActiveRestasis 0.05 % 1 into affected eye Ophthalmic Twice a day ActiveComment on above:Use 1 Drop in both eyes twice daily.Cyclosporine (Restasis) 0.05 % dropperette (13 sources)Start: 58-14-8919hgqu 1 drop(s) into the eye(s) every twelve hours Cyclosporine (Restasis) 0.05 % dropperette Active 1 DROPS EYE-BOTH Every 12 hours November 01, 2023 12:00amdapagliflozin 5 mg oral tablet (20 sources)Sodium-Glucose Cotransporter 2 InhibitorStart: 07-17-2024 End: 93-76-8995vgdi 1 tablet by mouth once dailydiclofenac sodium 75 mg delayed release oral tablet (1 source)Nonsteroidal Anti-inflammatory DrugStart: 99-87-7916rhxb 1 tablet by mouth every twelve hoursDiclofenac Sodium 75 MG 1 tablet as needed Orally Twice a day for 30 days Apr, Activedicyclomine hydrochloride 20 mg oral tablet (20 sources)AnticholinergicStart: 81-18-3906jsyk 1 tablet by mouth three times dailydicyclomine (BENTYL) 20 mg tablet Take 1 tablet (20 mg total) by mouth 3 (three) times a day. 5 11/11/2018 Activeesomeprazole 40 mg delayed release oral capsule (3 sources)Proton Pump InhibitorStart: 24-24-0334agqs 1 capsule by mouth once dailyfluticasone propionate 0.05 mg/actuat metered dose nasal spray (20 sources)CorticosteroidStart: 42-60-7976eadn 1 spray(s) nasal route once dailyfluticasone propionate (FLONASE) 50 mcg/actuation nasal spray USE 1 SPRAY IN EACH NOSTRIL ONCE A DAY 05/05/2020 ActiveStart: 38-23-2815qkzc 1 spray(s) nasal route once daily as neededFlonase Allergy Relief 50 MCG/ACT 1 spray in each nostril Nasally Once a day for 30 days PRN Mar, ActiveStart: 30-93-6477Ubsha: 70-39-6681dnwv 1 spray(s) nasal route twice dailyFlonase Allergy Relief 50 MCG/ACT 1 spray in each nostril Nasally twice a day for 30 day(s) ActiveStart: 09-30-2018 End: 38-40-3180Yvudyecojma Propionate (Flonase Allergy Relief) 50 mcg/actuation [place],Suspension Discontinued 2 SPRAY INTRANASAL Daily September 30, 2018 1:00am October 26, 2023 4:10pmfluticasone (Flonase) 50 MCG/ACT nasal spray 1 (one) time each day at the same time. 0 Aufkzr51 actuat fluticasone furoate 0.1 mg/actuat / umeclidinium 0.0625 mg/actuat / vilanterol 0.025 mg/actuat dry powder inhaler (20 sources)Anticholinergic, Corticosteroid, beta2-Adrenergic AgonistStart: 88-62-5744VCNAYSJ ELLIPTA 100-62.5-25 mcg blister with device 03/07/2020 Active Start: 23-29-3602axek 1 puff(s) by mouth once dailyTRELEGY ELLIPTA 100-62.5-25 mcg blister with device INHALE 1 PUFF BY MOUTH ONCE A DAY 03/07/2020 Active Cnrwiirycjk-Ezalvudmy-Jqayaaek (20 sources)Start: 89-85-7554Haama: 97-05-8571Zhaiuzcyxgx-Umeclidin-Vilanter (Trelegy Ellipta) 200-62.5-25 mcg blister with device Active 1 INH INHALATION Daily 180 90 4 January 10, 2024 1:20pm Centrilobular emphysema Centrilobular emphysema Rinseafter use; Dispense #3 inhalers Complies with drug therapyStart: 56-36-5078Ijxjufdbstp-Umeclidin-Vilanter (Trelegy Ellipta) 200-62.5-25 mcg blister with device Active 1 INH INHALATION Daily 180 90 January 10, 2024 1:20pm Rinse after use; Dispense #3 inhalers Complies with drug therapyStart: 31-38-0985Ktopp: 04-64-7316Hlanslehrea-Umeclidin-Vilanter (Trelegy Ellipta) 200-62.5-25 mcg blister with device Active 1 INH INHALATION Daily 180 90 January 10, 2024 1:20pm Rinse after use; Dispense #3 inhalersStart: 11-01-2023 End: 49-05-7574Uykjfjvqzyu-Umeclidin-Vilanter (Trelegy Ellipta) 200-62.5-25 mcg blister with device Discontinued 1INH INHALATION Daily November 01, 2023 12:00am January 10, 2024 1:22pmStart: 41-54-2545Ybvcyrhsrzo-Umeclidin-Vilanter (Trelegy Ellipta) 200-62.5-25 mcg blister with device Active 1 INH INHALATION Daily November 01, 2023 12:00amStart: 10-26-2023 End: 00-57-5491idlo 1 puff(s) by inhalation once daily Jmxsksgtxlq-Crbbqbzon-Lqcvnlck (Trelegy Ellipta) 200-62.5-25 mcg blister with device Discontinued 1PUFF INHALATION Daily October 26, 2023 12:00am November 01, 2023 6:33pm FreeTextSi puff Inhalation Once a day; Note: Source Status: Taking; Refills: 3; Provider: Dr Bagleyart: 72-51-7587pamg 1 puff(s) by inhalation once romyxXqeylimytvh-Ycybydrwq-Hxpekzwl (Trelegy Ellipta) 200-62.5-25 mcg blister with device Active 1 PUFF INHALATION Daily October 26, 2023 12:00am FreeTextSi puff Inhalation Once a day; Note: Source Status: Taking; Refills: 3; Provider: Dr PattersonSfjxqevhvyuxqmyky-qdsbkiyjg-nermvtss (TRELEGY ELLIPTA) 200-62.5-25 mcg inhalation powder (20 sources)take 1 puff(s) by inhalation once daily ewwiyvjxvvy-kujuatcab-hfywektz (TRELEGY ELLIPTA) 200-62.5-25 mcg inhalation powder Inhale 1 Puff asinstructed once daily. Activetake 1 puff(s) by inhalation once kfrcvztgvmkapugx-bmyrxhyeq-aiymmbsu (TRELEGY ELLIPTA) 200-62.5-25 mcg inhalation powder Inhale 1 Puff asinstructed once daily. 0 ActiveComment on above:Inhale 1 Puff as instructed once daily.furosemide 40 mg oral tablet (20 sources)Loop DiureticStart: 83-34-7155ppfw 2 tablets by mouth once daily as needed for edemaStart: 01-04-2025 End: 19-33-6871zezm 2 tablets by mouth once daily as needed for edemaFurosemide 40 mg tablet Discontinued 0 .ROUTE .COMPLEX 180 1 January 04, 2025 3:07pm April 10, 2025 1:46pm TAKE 2 TABLETS BY MOUTH EVERY DAY NEEDED FOR EDEMA FOR 30 DAYSStart: 10-12-2024 End: 28-18-2928qqlt 2 tablets by mouth once daily as neededFurosemide (Lasix) 40 mg tablet Discontinued 40 MG PO .COMPLEX as needed for edema 60 30 0 December 13, 2024 11:47am January 04, 2025 3:08pm 40 mg orally take two tablets daily PRN; Start: 03-28-2024 End: 02-90-8953nwqc 1 tablet by mouth every other dayFurosemide (Lasix) 40 mg tablet Discontinued 40 MG PO .qod March 28, 2024 1:17pm October 1252:49pm Start: 01-13-2024 End: 51-69-2586ogxt 1 tablet by mouth once dailyFurosemide (Lasix) 40 mg tablet Discontinued 40 MG PO Daily January 13, 2024 1:57pm March 2841:18pmStart: 11-01-2023 End: 43-54-4058ulcf 1 tablet by mouth twice dailyFurosemide (Lasix) 40 mg tablet Discontinued 40 MG PO Twice daily November 01, 2023 12:00am January 13, 2024 1:57pmStart: 10-27-2023 End: 97-31-2207nobt 1 tablet by mouth once daily as needed for edemaFurosemide (Lasix) 40 mg tablet Discontinued 40 MG PO Daily as needed for edema October 27, 2023 3:11pm November 01, 2023 6:33pmStart: 09-30-2018 End: 20-91-5906yxxf 1 tablet by mouth twice dailyFurosemide (Lasix) 40 mg Tablet Discontinued 40 MG PO Twice daily September 30, 2018 1:00am October 27, 2023 3:11pmtake 2 tablets by mouth twice daily as neededLasix 40 MG 2 tabs Orally bid for 90 day(s) PRN Not-TakingComment on above:Take 40 mg by mouth twice daily as needed.Take 40 mg by mouth once daily.Handicap placards as directed (5 sources)Start: 38-40-7089Ibcqspab placards as directed as directed as directed as directed Oct, ActivehydroCHLOROthiazide 12.5 mg / losartan potassium 50 mg oral tablet (2 sources)Thiazide Diuretic, Angiotensin 2 Receptor Blockertake 1 tablet by mouth in the morninglosartan-hydroCHLOROthiazide (Hyzaar) 50-12.5 MG tablet Take 1 tablet by mouth in the morning. 0 Activehyoscyamine sulfate 0.125 mg sublingual tablet (20 sources)Start: 30-72-3090acyf 1 tablet under the tongue three times daily as neededStart: 04-26-2024 End: 75-71-1285kibu 1 tablet under the tongue twice daily as needed for pain Hyoscyamine Sulfate 0.125 mg tablet, sublingual Discontinued 0.125 MG SUBLINGUAL Twice daily as needed for stomach pain/cramping 30 30 11 April 26, 2024 4:00pm April 13, 2025 1:36pm 1 tablet under the tongue and allow to dissolve as neededStart: 10-26-2023 End: 82-03-9219jrxn 1 tablet under the tongue four times daily as needed Hyoscyamine Sulfate 0.125 mg tablet, sublingual Discontinued 0.125 MG SUBLINGUAL Daily March 1:22pm April 26, 2024 4:03pm FreeTextSi tablet under the tongue and allow to dissolve as needed Sublingual qid; Note: Source Status: Taking; Refills: 5; Provider: Muriel Bernard MStart: 08-09-2023 hyoscyamine (Levsin) 0.125 MG SL tablet 08/09/2023 ActiveStart: 87-03-1874svmm 1 tablet under the tongue four times daily as neededHyoscyamine Sulfate 0.125 MG 1 tablet under the tongue and allow to dissolve as needed Sublingual qid for 30 days Apr, ActiveStart: 39-68-9607pvmf 1 tablet under the tongue three times daily as neededHyoscyamine Sulfate 0.125 MG 1 tablet under the tongue and allow to dissolve as needed Sublingual Three times a day for 30 days Jan, Activetake 1 tablet by mouth every four hours as needed for diarrhea hyoscyamine (LEVSIN) 0.125 mg SL tablet Take 1 tablet (125 mcg total) by mouth every 4 (four) hoursas needed for cramping or diarrhea (3x a day). Activetake 125 ug by mouth every four hours as needed for muscle spasmshyoscyamine (Levsin) 0.125 MG/5ML elixir Take 125 mcg by mouth every 4 (four) hours if needed for bl adder spasms. 0 ActiveComment on above:Dissolve 0.125 mg under the tongue three times a day.ipratropium bromide 0.021 mg/actuat metered dose nasal spray (20 sources)AnticholinergicStart: 79-20-5160zcoi 2 spray(s) nasal route once daily as neededStart: 10-26-2023 End: 66-91-1121rmzl 2 spray(s) nasal route once daily as neededIpratropium [place] 21 mcg (0.03 %) spray,non-aerosol Discontinued 2 SPRAY INTRANASAL Daily as needed for allergy symptoms 30 2 August 16, 2024 3:46pm September 11, 2024 9:13am 2 sprays in each nostril Nasally Once Daily; Provider: Gladys Pastrana Start: 11-88-0185bqtn 2 spray(s) nasal route once dailyIpratropium [place] 0.03 % 2 sprays in each nostril Nasally Once Daily for 30 days Oct, Active Start: 19-91-1200mabn 2 spray(s) nasal route once dailyIpratropium [place] 0.03 % 2 sprays in each nostril Nasally Once Daily for 30 days Oct, Active Start: 01-88-2672Jjfoc: 92-41-1526isgr 2 spray(s) nasal route twice daily Ipratropium [place] 0.03 % 2 sprays in each nostril Nasally Twice a day for 30 day(s) Oct, Activeipratropium (Atrovent) 0.03 % nasal spray Administer 2 sprays into each nostril every 12 (twelve) hours Activeipratropium (ATROVENT) 21 mcg (0.03 %) nasal spray Administer 2 sprays into each nostril every 12 (t welve) hours. ActiveComment on above:Use 2 Sprays in the nose once daily.24 hr isosorbide mononitrate 60 mg extended release oral tablet (20 sources)Nitrate VasodilatorStart: 26-27-6993qkhv 1 tablet by mouth once daily, then take 1 tablet by mouth every twenty-four hoursStart: 07-31-2024 End: 86-12-9316ojmx 1 tablet by mouth once dailyIsosorbide Mononitrate 60 mg tablet extended release 24 hr Discontinued 0 .ROUTE .COMPLEX 90 1 2024 7:27am April 10, 2025 1:46pm Primary hypertension Essential (primary) hypertension TAKE 1 TABLET BY MOUTH EVERY DAYStart: 11-01-2023 End: 74-35-9223sawa 1 tablet by mouth once daily, then take 1 tablet by mouth every twenty-four hoursIsosorbide Mononitrate 60 mg tablet extended release 24 hr Discontinued 60 MG PO Daily 90 90 1 2023 11:27am July 31, 2024 10:42am Primary hypertension Essential (primary) hypertensionStart: 09-30-2018 End: 31-85-4022fxrr 1 tablet by mouth once daily, then take 1 tablet by mouth every twenty-four hoursIsosorbide Mononitrate 30 mg Tablet Extended Release 24 Hr Discontinued 30 MG PO Daily September 30, 2018 1:00am November 01, 2023 6:34pmtake 1 tablet by mouth in the morningisosorbide mononitrate 20 MG tablet Take 20 mg by mouth in the morning and 20 mg before bedtime. Activetake 2 tablets by mouth once dailyisosorbide mononitrate (IMDUR) 30 mg 24 hr tablet Take 2 tablets (60 mg total) by mouth daily. ActiveComment on above:Take 60 mg by mouth once daily.levoFLOXacin 750 mg oral tablet (2 sources)Quinolone Antimicrobialtake 1 tablet by mouth in the morning levoFLOXacin (Levaquin) 750 MG tablet Take 750 mg by mouth in the morning. 0 Activelidocaine 0.05 mg/mg medicated patch (12 sources)Antiarrhythmic, Amide Local AnestheticStart: 75-20-5271Sjasnzpps 5 % 1 patch remove after 12 hours Externally Once a day for 30 days PRN December, ActiveStart: 27-79-1428lqeyarwkim 5 mg oral tablet (20 sources)Angiotensin Converting Enzyme Inhibitortake 1 tablet by mouth once dailylisinopril 5 MG tablet Take 5 mg by mouth 1 (one) time each day at the same time. 0 Activetake 1 tablet by mouth every twelve hoursLisinopril 5 MG 1 tablet Orally Twice a day for 90 day(s) Activeloperamide hydrochloride 2 mg oral capsule (20 sources)Opioid AgonistStart: 34-95-3831pfmu 1 capsule by mouth twice daily Start: 05-13-2022 End: 57-07-3727fory 1 capsule by mouth once daily as needed for diarrhea Loperamide 2 mg capsule Discontinued 2 MG PO Daily as needed for diarrhea October 26, 2023 12:00am December 22, 2023 8:48am FreeTextSi capsule as needed Orally ONCE A DAY; Note: Source Status: Taking; Refills: 6; Qty: 30 Capsule; Provider: Magdiel Petersontake 1 capsule by mouth four times daily as needed for diarrhea loperamide (Imodium) 2 MG capsule Take 2 mg by mouth 4 (four) times a day as needed for diarrhea. ActiveComment on above:Take 2 mg by mouth once daily. loratadine 10 mg oral tablet (20 sources)Start: 18-60-0981mjoz 1 tablet by mouth once dailyloratadine (CLARITIN) 10 mg tablet Take 1 tablet by mouth once daily. 11/08/2023 Active Comment on above:Take 1 tablet by mouth once daily.MULTIVIT WITH IRON-MINERALS (MULTIVITAMIN AND MINERALS ORAL) (20 sources)take 1 tablet by mouth once dailyMULTIVIT WITH IRON-MINERALS (MULTIVITAMIN AND MINERALS ORAL) Take 1 tablet by mouth once daily. Activetake 1 tablet by mouth once dailyMULTIVIT WITH IRON-MINERALS (MULTIVITAMIN AND MINERALS ORAL) Take 1 tablet by mouth once daily. 0 ActiveComment on above:Take 1 tablet by mouth once daily.uyolsult-vsdb-BS-calcium &mins (THERAGRAN-M) 9 mg iron-400 mcg tablet (2 sources)xoybojkw-jyyg-RF-calcium &mins (THERAGRAN-M) 9 mg iron-400 mcg tablet Take 1 tablet by mouth inthe morning. Activenitrofurantoin, macrocrystals 25 mg / nitrofurantoin, monohydrate 75 mg oral capsule (1 source)Nitrofuran AntibacterialStart: 04-03-2024 End: 40-70-1351lykocuwzmtvahj, macrocrystal-monohydrate, (MACROBID) 100 mg capsule One tablet twice a day for 5-7 days. Start first sign of infection 50 capsule 1 04/03/2024 04/05/2024 ActiveOXcarbazepine 150 mg oral tablet (20 sources)Anti-epileptic AgentStart: 10-02-2024 End: 70-05-1130jtve 1 tablet by mouth twice dailypantoprazole 40 mg delayed release oral tablet (20 sources)Proton Pump InhibitorStart: 51-60-4547ljdu 1 tablet by mouth once dailyStart: 08-14-2019 End: 19-43-5089hcei 1 tablet by mouth once dailyPantoprazole 40 mg tablet,delayed release (DR/EC) Discontinued 40 MG PO Daily 90 90 1 October 11, 2023 12:42pm March 20, 2024 12:09pm 1 tablet Orally Once a day Provider: Gladys Cruz NComment on above:Take 40 mg by mouth once daily.potassium chloride 10 meq extended release oral capsule (20 sources)Start: 24-30-5729pont 1 capsule by mouth once dailyStart: 12-15-2024 End: 78-19-7735aphp 1 capsule by mouth once dailyPotassium Chloride 10 mEq capsule, extended release Discontinued 0 .ROUTE .COMPLEX 90 December 15, 2024 7:50am April 10, 2025 1:46pm TAKE 1 CAPSULE BY MOUTH EVERY DAYStart: 11-01-2023 End: 98-04-7102dqct 1 capsule by mouth once dailyPotassium Chloride 10 mEq capsule, extended release Discontinued 10 MEQ PO Daily 90 90 January 5:03pm July 17, 2024 2:34pmStart: 09-30-2018 End: 19-25-1400ovjs 20 mEq by mouth once dailyPotassium Chloride (Klor-Con) 20 mEq Packet Discontinued 20 MEQ PO Daily September 30, 2018 1:00amMarch 2023 4:09pmpotassium chloride CR (KLOR-CON) 10 MEQ ER tablet every 12 (twelve) hours Activetake 1 tablet by mouth in the morningpotassium chloride (K-DUR,KLOR-CON) 10 MEQ CR tablet Take 1 tablet (10 mEq total) by mouth in the morning. Activetake 10 mEq by mouth twice dailyPOTASSIUM CHLORIDE (KLOR-CON 10 ORAL) Take 10 mEq by mouth twice daily. Activetake 1 tablet by mouth every twelve hoursComment on above:Take 10 mEq by mouth twice daily.predniSONE 10 mg oral tablet (8 sources)Start: 79-92-8039gyxtqbUJVT 10 MG 4 tablets daily for 3 days, 2 tablets daily for 3 days, 1 tablet daily for 7 days Orally Once a day for 13 days December, Activespironolactone 25 mg oral tablet (20 sources)Aldosterone AntagonistStart: 42-82-0232vrts 1 tablet by mouth once dailyStart: 09-22-2024 End: 44-87-6169jwgq 1 tablet by mouth once dailySpironolactone 25 mg tablet Discontinued 0 .ROUTE .COMPLEX 90 March 12, 2025 11:40am April 10, 2025 1:46pm Chronic diastolic congestive heart failure Shortness of breath Chronic diastolic (congestive) heart failure Shortness of breath TAKE 1 TABLET BY MOUTH EVERY DAYStart: 07-17-2024 End: 73-16-3843bgac 1 tablet by mouth once dailySpironolactone 25 mg tablet Discontinued 25 MG PO Daily 90 July 17, 2024 3:11pm September 22, 2024 8:53am Chronic diastolic congestive heart failure Shortness of breath Chronic diastolic (congestive) heart failure Shortness of breathStart: 05-16-2024 End: 28-10-3511aucu 1 tablet by mouth once dailySpironolactone 25 mg tablet Discontinued 0 .ROUTE .COMPLEX 90 May 16, 2024 12:38pm July 17, 2024 3:12pm Chronic diastolic congestive heart failure Shortness of breath Chronic diastolic (congestive) heart failure Shortness of breath TAKE 1 TABLET BY MOUTH DAILYStart: 04-24-2024 End: 02-69-8968wipi 1 tablet by mouth once dailySpironolactone 25 mg tablet Discontinued 25 MG PO Daily 30 April 24, 2024 12:00am May 16, 2024 12:38pm Chronic diastolic congestive heart failure Shortness of breath Chronic diastolic(congestive) heart failure Shortness of breathTrelegy Ellipta 100-62.5-25 MCG/INH (7 sources)Start: 69-18-9035lhbb 1 puff(s) by inhalation once dailyTrelegy Ellipta 100-62.5-25 MCG/INH 1 puff Inhalation Once a day for 90 day(s) Feb, Activetrelegy ellipta 200-62.5-25 mcg/act aerosol powder breath activated (3 sources)Start: 49-92-5613wurj 1 puff(s) by inhalation once dailyTrelegy Ellipta 200-62.5-25 MCG/ACT 1 puff Inhalation Once a day for 90 days Feb, ActiveVitamin B12 1000 MCG (1 source)take 1 tablet by mouth once dailyVitamin B12 1000 MCG 1 tablet Orally Once a day ActiveVitamin C 500 MG (20 sources)Vitamin C 500 MG as directed Orally Activevitamin e 100 unt oral capsule (2 sources)take 1 capsule by mouth in the morningvitamin E 100 units capsule Take 100 Units by mouth in the morning. ActiveVitamin E 200 UNIT (20 sources)take 1 tablet by mouth once dailyVitamin E 200 UNIT 1 tablet Orally Once a day Active Completed/Discontinued Medications MedicationDrug Class(es)DatesSig (Normalized)Sig (Original)Albuterol Sulfate 108 (90 Base) MCG/ACT (20 sources)take 2 puff(s) by inhalation every six hours as neededAlbuterol Sulfate 108 (90 Base) MCG/ACT 2 puffs as needed Inhalation every 6 hrs for 30 day(s) Not-Taking/PRNtake 2 puff(s) by inhalation every six hours as needed Albuterol Sulfate 108 (90 Base) MCG/ACT 2 puffs as needed Inhalation every 6 hrs for 30 day(s) Not-Takingtake 2 puff(s) by inhalation every six hours as needed Albuterol Sulfate 108 (90 Base) MCG/ACT 2 puffs as needed Inhalation every 6 hrs for 30 day(s) ActiveALPRAZolam 0.25 mg oral tablet (20 sources)BenzodiazepineStart: 09-30-2018 End: 33-84-1149Ntvddibucg 0.25 mg Tablet Discontinued 0.25 MG PO 2-3 TIMES PER DAY as needed for Anxiety September 30, 2018 1:00am October 26, 2023 4:10pmtake 1 tablet by mouth every eight hours as neededALPRAZolam 0.25 mg tablet Take 0.25 mg by mouth three times daily as needed. 0 ActiveComment on above:Take 0.25 mg by mouth three times daily as needed.amitriptyline hydrochloride 75 mg oral tablet (20 sources)Tricyclic AntidepressantStart: 09-30-2018 End: 41-56-5569hzug 1 tablet by mouth once dailyAmitriptyline 75 mg Tablet Discontinued 75 MG PO Daily September 30, 2018 1:00am July 12, 2019 9:30am take 1 tablet by mouth once daily at bedtimeamitriptyline 50 mg tablet Take 50 mg by mouth daily at bedtime. 0 ActiveComment on above:Take 50 mg by mouth daily at bedtime.ascorbic acid 500 mg oral capsule (20 sources)Vitamin CStart: 10-26-2023 End: 92-04-3006Oaduwvcj Acid (Vitamin C) 500 mg capsule Discontinued CAP PO As Directed October 26, 2023 12:00am November 01, 2023 6:33pm FreeTextSig: as directed Orally; Note: Source Status: Taking; Provider: OTCStart: 10-26-2023 End: 08-15-1040Htbcfjri Acid (Vitamin C) Discontinued CAP PO As Directed October 26, 2023 12:00am October 3146:33pm FreeTextSig: as directed Orally; Note: Source Status: Taking; Provider: OTCtake 1 tablet by mouth in the morning ascorbic acid (VITAMIN C) 500 mg tablet Take 1 tablet (500 mg total) by mouth in the morning. ActiveVitamin C 500 MG as directed Orally ActiveComment on above: Take 500 mg by mouth once daily.aspirin 81 mg delayed release oral tablet (20 sources)Platelet Aggregation Inhibitor, Nonsteroidal Anti-inflammatory Drug Start: 09-30-2018 End: 12-87-9234bigi 1 tablet by mouth once dailyAspirin (Aspir-81) 81 mg Tablet,Delayed Release (Dr/Ec) Discontinued 81 MG PO Daily September 30, 2018 1:00am April 10, 2025 2:59pmComment on above:Take 81 mg by mouth once daily.atropine sulfate 0.025 mg / diphenoxylate hydrochloride 2.5 mg oral tablet (5 sources)Anticholinergic, Cholinergic Muscarinic Antagonist, Antidiarrheal Start: 12-08-7066tmcc 1 tablet by mouth every eight hoursStart: 46-68-4853flxb 2 tablets by mouth once as neededdiphenoxylate-atropine (LOMOTIL) 2.5-0.025 mg per tablet Take 2 tablets by mouth as needed. 0 10/28/2015 Activetake 1 tablet by mouth four times daily as neededdiphenoxylate-atropine (Lomotil) 2.5-0.025 MG tablet Take 1 tablet by mouth 4 (four) times a day asneeded. 0 ActiveComment on above:Take 2 tablets by mouth as needed.120 actuat budesonide 0.16 mg/actuat / formoterol fumarate 0.0045 mg/actuat metered dose inhaler (20 sources)Corticosteroid, beta2-Adrenergic AgonistStart: 09-30-2018 End: 07-69-4693jvay 1 puff(s) by inhalation twice dailyBudesonide-Formoterol (Symbicort) 160-4.5 mcg/actuation Hfa Aerosol Inhaler Discontinued 2 PUFF INHA LATION Twice daily September 30, 2018 1:00am July 12, 2019 9:30am budesonide-formoteroL (SYMBICORT) 160-4.5 mcg/actuation inhaler Symbicort 160 mcg-4.5 mcg/actuationHFA aerosol inhaler Activetake 2 puff(s) by inhalation twice dailybudesonide-formoterol (SYMBICORT) 160-4.5 mcg/actuation inhaler Inhale 2 Puffs as instructed twice daily. 0 ActiveComment on above:Inhale 2 Puffs as instructed twice daily.cefdinir 300 mg oral capsule (20 sources)Cephalosporin AntibacterialStart: 11-18-2023 End: 63-74-8076iidj 1 capsule by mouth every twelve hoursCefdinir 300 mg capsule Discontinued 300 MG PO Every 12 hours 24 0 November 18, 2023 12:00am November 29, 2023 2:06pmcetirizine hydrochloride 10 mg oral tablet (20 sources)Histamine-1 Receptor AntagonistStart: 10-26-2023 End: 88-77-8790fvjk 1 tablet by mouth once dailyCetirizine 10 mg tablet Discontinued 10 MG PO Daily October 26, 2023 12:00am November 01, 2023 6:33pm FreeTextSi tablet Orally Once a day; Note: Source Status: Taking; Provider: OTCcholecalciferol 0.025 mg oral capsule (20 sources)Vitamin DStart: 09-30-2018 End: 89-56-3713bhmb 1 capsule by mouth once dailyCholecalciferol (Vitamin D3) (Vitamin D3) 1,000 unit Capsule Discontinued 1000 UNIT PO Daily September 30, 2018 1:00am November 01, 2023 6:33pmtake 1 tablet by mouth in the morning, then take 1 tablet by mouth at bedtimecholecalciferol, vitamin D3, (VITAMIN D3) 1,000 units tablet Take 1 tablet (1,000 Units total) by mouth in the morning and 1 tablet (1,000 Units total) before bedtime. ActiveComment on above:Take 1,000 Units by mouth once daily.colestipol hydrochloride 1000 mg oral tablet (20 sources)Bile Acid SequestrantStart: 10-26-2023 End: 35-67-9147luxo 2 tablets by mouth once dailyColestipol 1 gram tablet Discontinued 1 GM PO Daily 30 30 3 December 22, 2023 8:44am March 2841:18pm FreeTextSi tablets Orally Once a day; Note: Source Status: Taking; Refills: 11; Qty: 60 Tablet; Provider: Magdiel Condetart: 03-07-2020 End: 20-75-6969Izdtjmnfkn 1 gram tablet Discontinued 1 GM PO Twice daily October 12, 2024 1:00am April 10, 2025 1:42pmStart: 03-07-2020 End: 28-08-8308Sybdtytrqt 1 gram tablet Discontinued 1 GM PO Daily March 28, 2024 1:16pm May 01, 2024 2:17pmStart: 25-12-7641twpw 2 tablets by mouth every twenty-four hoursColestipol HCl 1 GM 2 tablets Orally Once a day for 30 day(s) Feb, ActiveStart: 10-24-6348jdvr 2 tablets by mouth every twenty- four hoursColestipol HCl 1 GM 2 tablets Orally Once a day for 30 day(s) Feb, ActiveStart: 52-73-1675yxko 2 tablets by mouth every twenty-four hours Start: 58-62-2297zpyk 1.5 tablets by mouth every twenty-four hoursColestipol HCl 1 GM 1.5 tablets Orally Once a day for 30 day(s) Feb, ActiveComment on above:Take 1 g by mouth once daily.cranberry preparation 500 mg oral capsule (10 sources)Non-Standardized Food Allergenic Extract, Non-Standardized Plant Allergenic ExtractCranberry 500 MG as directed Orally Not-TakingCranberry 500 MG as directed Orally ActiveCyclosporine (Restasis) 0.05 % Dropperette (13 sources)Start: 09-30-2018 End: 48-41-4461ziga 1 drop(s) into the eye(s) every twelve hoursCyclosporine (Restasis) 0.05 % Dropperette Discontinued 1 DROPS EYE-BOTH Q12H September 30, 2018 1:00am November 01, 2023 6:33pmcyproheptadine hydrochloride 4 mg oral tablet (20 sources)Start: 09-30-2018 End: 10-40-4134hmuk 1 tablet by mouth once dailyCyproheptadine 4 mg Tablet Discontinued 4 MG PO Daily September 30, 2018 1:00am October 26, 2023 4:10pm dexamethasone 2 mg oral tablet (20 sources)CorticosteroidStart: 03-29-2024 End: 00-45-8760pqqf 1 tablet by mouth in the morningdexAMETHasone (Decadron) 2 MG tablet Indications: Traumatic syrinx (HCC) Take 1 tablet (2 mg) by mouth in the morning and 1 tablet (2 mg) in the evening. Take with meals. Do all this for 10 days. 20 tablet 06/29/2024 03/19/2025 Discontinued (Therapy completed) docusate sodium 100 mg oral capsule (1 source)Start: 41-38-2801vowh 1 capsule by mouth twice dailydocusate sodium (COLACE) 100 mg capsule Take 1 capsule by mouth twice daily. 60 capsule 0 01/13/2016 ActiveComment on above:Take 1 capsule by mouth twice daily. doxycycline hyclate 100 mg oral tablet (20 sources)Tetracycline-class DrugStart: 08-10-2024 End: 04-13-3564dgte 1 tablet by mouth twice dailyDoxycycline Hyclate 100 mg tablet Discontinued 100 MG PO Twice daily 14 7 0 August 10, 2024 1:00am October 12, 2024 2:47pm Acute sinusitis Acute sinusitis, unspecifiedStart: 09-30-2018 End: 08-61-7514btpn 1 capsule by mouth twice dailyDoxycycline Monohydrate 100 mg Capsule Discontinued 100 MG PO Twice daily September 30, 2018 1:00am October 26, 2023 4:10pmempagliflozin 10 mg oral tablet (20 sources)Sodium-Glucose Cotransporter 2 InhibitorStart: 10-28-2023 End: 31-51-3861uebl 1 tablet by mouth once dailyEmpagliflozin (Jardiance) 10 mg tablet Discontinued 10 MG PO Daily 90 1 March 20, 2024 12:09pm July 17, 2024 3:14pm Heart failure Heart failure, unspecifiedComment on above:Take 10 mg by mouth daily with breakfast.fluticasone / salmeterol (1 source)Corticosteroid, beta2-Adrenergic AgonistStart: 59-73-1442gluk 1 puff(s) by mouth twice dailyfluticasone-salmeterol (ADVAIR DISKUS) 500-50 mcg/dose dsdv Inhale 1 Puff as instructed twice daily. rinse and gargle mouth with water after each use 0 12/18/2015 ActiveComment on above:Inhale 1 Puff as instructed twice daily. rinse and gargle mouth with water after each use ibuprofen 800 mg oral tablet (20 sources)Nonsteroidal Anti-inflammatory DrugStart: 03-24-2022 End: 85-36-8260fbki 1 tablet by mouth every eight hours at mealtime as needed Ibuprofen 800 mg tablet Discontinued 800 MG PO Every 8 hours October 26, 2023 12:00am November 01, 2023 6:33pm FreeTextSi tablet with food or milk as needed Orally every 8 hrs; Note: Source Status: Refill; Refills: 0; Provider: Gladys Angulo 1 tablet by mouth every six hours as needed for pain ibuprofen (ADVIL,MOTRIN) 200 mg tablet Take 200 mg by mouth every 6 (six) hours as needed for pain.Activeibuprofen 800 MG tablet Take 400 mg by mouth every 6 (six) hours if needed for mild pain. 0 Activetake 1 tablet by mouth three times daily at mealtime as neededIbuprofen 800 MG 1 tablet with food or milk as needed Orally tid prn for 30 day(s) Activeketotifen 0.25 mg/ml ophthalmic solution (20 sources)Histamine-1 Receptor InhibitorStart: 09-30-2018 End: 10-21-5755jsdp 0.025 drop(s) into the eye(s) twice dailyKetotifen Fumarate (Alaway) 0.025 % (0.035 %) Drops Discontinued 1 DROPS EYE-LEFT Twice daily September 30, 2018 1:00am October 26, 2023 4:09pmStart: 09-30-2018 End: 41-07-9631hcem 0.025 drop(s) into the eye(s) twice dailyKetotifen Fumarate (Alaway) 0.025 % (0.035 %) Drops Discontinued 1 DROPS EYE-LEFT Twice daily September 30, 2018 1:00am October 26, 2023 4:09pmLeg Cramp Relief - (10 sources)Leg Cramp Relief - as directed Orally OTC Not-TakingLeg Cramp Relief - as directed Orally OTC Activelosartan potassium 100 mg oral tablet (20 sources)Angiotensin 2 Receptor BlockerStart: 06-15-2022 End: 06-35-0279jntj 1 tablet by mouth once dailyLosartan 100 mg tablet Discontinued 100 MG PO Daily October 26, 2023 12:00am March 20, 2024 12:09pm FreeTextSi tablet Orally Once a day; Note: Source Status: Taking; Refills: 1; Qty: 90 Tablet; Provider: Gladys Cruz NStart: 51-00-9114slwf 1 tablet by mouth every twenty-four hoursLosartan Potassium 50 MG 1 tablet Orally Once a day for 90 day(s) Feb, ActiveComment on above:Take 100 mg by mouth once daily.magnesium oxide 400 mg oral tablet (20 sources)Start: 10-28-2023 End: 61-11-9151Ibchtwhwu Oxide 400 mg (241.3 mg magnesium) tablet Discontinued 400 MG PO November 29, 2023 12:00am December 31, 2023 11:28amComment on above:Take 400 mg by mouth once daily.montelukast 10 mg oral tablet (20 sources)Leukotriene Receptor AntagonistStart: 09-30-2018 End: 46-39-8018wamv 1 tablet by mouth once daily in the eveningMontelukast 10 mg Tablet Discontinued 10 MG PO Every evening September 30, 2018 1:00am October 4:09pmMultivitamin preparation (20 sources)Start: 10-26-2023 End: 22-03-0830bqge 1 tablet by mouth once dailyMultivitamin Discontinued 1 TAB PO Daily October 26, 2023 12:00am November 01, 2023 6:34pmStart: 38-43-2905aaga 1 tablet by mouth once dailyMultivitamin Active 1 TAB PO Daily October 26, 2023 12:00amMultivitamin - 1 Tablet Orally ActiveMultivitamin - as directed Orally ActiveMultivitamin tablet (14 sources)Start: 10-26-2023 End: 62-10-1823mvbo 1 tablet by mouth once dailyMultivitamin tablet Discontinued 1 TAB PO Daily October 26, 2023 12:00am November 01, 2023 6:34pmnaproxen sodium 220 mg oral capsule (1 source)Nonsteroidal Anti-inflammatory Drugtake 1 capsule by mouth every eight hoursnaproxen sodium 220 mg cap Take 1 capsule by mouth every 8 hours. 0 Active Comment on above:Take 1 capsule by mouth every 8 hours.Nitro Sublingual 0.4 0.4mg (10 sources)Start: 00-38-7509Yjwlg Sublingual 0.4 0.4mg 1 Sublingual Every 5min x3 for 30 days Aug, Not-TakingStart: 06-99-7436Fpdwt Sublingual 0.4 0.4mg 1 Sublingual Every 5min x3 for 30 days Aug, ActiveStart: 41-75-8219woczdcdjkw 40 mg delayed release oral capsule (20 sources)Proton Pump InhibitorStart: 04-13-2025 End: 18-55-5378vlok 1 capsule by mouth twice dailyOmeprazole 40 mg capsule,delayed release(DR/EC) Discontinued 40 MG PO Twice daily 60 30 11 April 13, 2025 12:00am May 28, 2025 3:02pmStart: 09-30-2018 End: 48-51-9503grnv 1 capsule by mouth once dailyOmeprazole 40 mg Capsule,Delayed Release(Dr/Ec) Discontinued 40 MG PO Daily September 30, 2018 1:00am October 26, 2023 4:09pmtake 1 capsule by mouth once dailyomeprazole 20 mg capsule Take 20 mg by mouth once daily. 0 ActiveComment on above:Take 20 mg by mouth once daily.Yabbphnjjyd-Wcnbehjn-Mdrusxrwx 1-0.5-0.09 % (11 sources)Vgpkjhztycr-Xyffakmu-Nxdhmlnny 1-0.5-0.09 % as directed Ophthalmic Drv-YswyqkDkkbaagqnzn-Ephnukpj-Bromfenac 1-0.5-0.09 % as directed Ophthalmic Activepregabalin 25 mg oral capsule (16 sources)Start: 07-03-2024 End: 35-81-3855iylm 1 capsule by mouth twice dailyPregabalin 25 mg capsule Discontinued 25 MG PO Twice daily May 09, 2025 12:00am May 09, 2025 10:56amtiotropium 0.018 mg inhalation powder (2 sources)Anticholinergictake 1 capsule by inhalation once dailytiotropium 18 mcg inhalation capsule Inhale 18 mcg as instructed once daily. 0 ActiveComment on above:Inhale 18 mcg as instructed once daily.tolterodine tartrate 2 mg oral tablet (18 sources)Cholinergic Muscarinic Antagonisttake 1 capsule by mouth every twenty-four hoursDetrol LA 2 MG 1 capsule Orally Once a day Not-Takingtake 1 tablet by mouth every twelve hoursTolterodine Tartrate 2 MG 1 tablet Orally Twice a day Not-TakingtraZODone hydrochloride 50 mg oral tablet (20 sources)Serotonin Reuptake InhibitorStart: 05-15-2024 End: 59-11-4704ipiv 1 tablet by mouth once daily at bedtime as neededTrazodone 50 mg tablet Discontinued 0 .ROUTE .COMPLEX 90 1 September 22, 2024 8:51am March 19, 2025 7:31am TAKE 1 TABLET BY MOUTH EVERY DAY AT BEDTIME NEEDED FOR 90 DAYSStart: 06-09-2019 End: 76-23-7763qsjr 1 tablet by mouth once daily at bedtimeTrazodone 50 mg tablet Discontinued 1 TAB PO Daily at bedtime October 26, 2023 12:00am May 8:24am FreeTextSi tablet at bedtime as needed Orally Once a day; Note: Source Status: Taking; Refills: 1; Qty: 90 Tablet; Provider: Gladys Cruz NStart: 78-80-0100orhYYYfcv (DESYREL) 50 mg tablet 2 06/09/2019 Active Comment on above:Take 50 mg by mouth daily at bedtime.Umeclidinium (20 sources)AnticholinergicStart: 09-30-2018 End: 99-73-1028mect 62.5 ug by inhalation once dailyUmeclidinium (Incruse Ellipta) 62.5 mcg/actuation Blister With Device Discontinued 1 INH INHALATION Daily September 30, 2018 12:00am July 12, 2019 8:31amStart: 09-30-2018 End: 20-56-6595djor 62.5 ug by inhalation once dailyUmeclidinium (Incruse Ellipta) 62.5 mcg/actuation Blister With Device Discontinued 1 INH INHALATION Daily September 30, 2018 1:00am July 12, 2019 9:31am24 hr verapamil hydrochloride 180 mg extended release oral capsule (20 sources)Calcium Channel BlockerStart: 12-04-2013 End: 51-44-3974paoc 1 capsule by mouth once dailyVerapamil 180 mg Capsule,Ext Rel. Pellets 24 Hr Discontinued 180 MG PO Daily September 30, 2018 1:00am October 26, 2023 4:09pmComment on above:Take 1 capsule by mouth once daily.vitamin b12 1 mg oral capsule (20 sources)Vitamin A77Avdze: 10-26-2023 End: 63-12-0381fykt 1 capsule by mouth once dailyCyanocobalamin (Vitamin B-12) 1,000 mcg capsule Discontinued 1000 MCG PO Daily October 26, 2023 12:00am November 01, 2023 6:33pmtake 1 tablet by mouth once dailycyanocobalamin (VITAMIN B-12) 1,000 mcg tab Take 1,000 mcg by mouth once daily. Activetake 1 tablet by mouth every twenty-four hoursVitamin B12 1000 MCG 1 tablet Orally Once a day Active Comment on above:Take 1,000 mcg by mouth once daily. Problems Active Problems Problem ClassificationProblemDateDocumented DateEpisodic/ChronicAcquired foot deformities (20 sources)Hallux valgus; Translations: [Hallux valgus (acquired), left foot] Onset: 838775-48-4716HcgoadyMiafgygvmdwrgf/social admission (5 sources)Impaired mobility; Translations: [Other reduced mobility]05-09-2025 EpisodicAnxiety disorders (20 sources)Anxiety; Translations: [Anxiety disorder, unspecified]Onset: 294043-99-1743VhqkadzKyhirfq dysrhythmias (20 sources)Atrial fibrillation; Translations: [Unspecified atrial fibrillation] Onset: 94-37-3355BnmnpfdHmhnxbz obstructive pulmonary disease and bronchiectasis (20 sources)Chronic obstructive lung disease; Translations: [Chronic obstructive pulmonary disease, unspecified]Onset: 01-12-2013 Resolved: 22-39-3863SgdugonHxkehyz on above:PFT: 02/01/2017-FEV1/FVC: 82%-FEV1: 75%-FVC: 70%-Bronchodilator response: None-RV: 90%-T%-DLCO: 61%Conduction disorders (20 sources)Left bundle-branch block, unspecified; Translations: [Left bundle branch block]Onset: 77-97-5077JgpwnxnShcsezozhq heart failure; nonhypertensive (20 sources)Chronic diastolic (congestive) heart failure; Translations: [Heart failure]Onset: 13-49-5745NdjlsexWmcnesxj atherosclerosis and other heart disease (20 sources)Atherosclerotic heart disease of [place] coronary artery without angina pectoris; Translations: [Coronary arteriosclerosis]Onset: 02-22-2023 ChronicDeficiency and other anemia (6 sources)Anemia; Translations: [Anemia, unspecified]77-26-8926Fqbjszts Deficiency and other anemia (1 source)Anemia, unspecified; Translations: [Anemia, unspecified]Onset: 04-39-3433PilbiwawB Codes: Fall (1 source)Fall on same level from slipping, tripping and stumbling without subsequent striking against object, initial encounter; Translations: [FALL SAME LVL SLIP NO STRK OBJ INIT]Onset: 78-82-1486CbpbjftpEwsvyvyibs disorders (20 sources)Gastroesophageal reflux disease; Translations: [Gastro-esophageal reflux disease without esophagitis]Onset: 12-04-2021 Resolved: 69-14-6073XjwyceqMcirpjcda hypertension (20 sources)Essential hypertension; Translations: [Essential (primary) hypertension]Onset: 12-04-2013 Resolved: 32-19-7903YhtnahtMfjzymkevwivk symptoms and ill-defined conditions (20 sources)Incontinence; Translations: [Mixed incontinence]Onset: 12-03-2015 82-56-5368LhavkwdNohwjfi and fatigue (20 sources)Fatigue; Translations: [Chronic fatigue, unspecified]Onset: 31-50-2090KbsbbykUpepsnqienvvh mental health disorders (20 sources)Somatization disorder; Translations: [Somatization disorder]Onset: 12-04-2021 Resolved: 07-00-7475AfkpftrTxam disorders (1 source)Mood disorders; Translations: [DEPRESSION UNSPECIFIED]Onset: 25-65-4012Ktcimi and vomiting (20 sources)Nausea; Translations: [Nausea]EpisodicNonspecific chest pain (12 sources)Other chest pain; Translations: [Chest pain, unspecified]Onset: 12-60-1356PjnpudyoQyjllagmtvsivz (20 sources)Osteoarthritis of right knee joint; Translations: [Unilateral primary osteoarthritis, right knee]Onset: 10-09-2021 Resolved: 40-27-3278CnzvpxhYkllq aftercare (1 source)assisted (current) use of aspirin; Translations: [ASSISTED CURRENT USE OF ASPIRIN]Onset: 35-73-1780WotyzsbyWsaty aftercare (1 source)Other jail (current) drug therapy; Translations: [OTH ZIGZAGGER CURRENT DRUG THERAPY]Onset: 78-34-0902BdbvdediLvesb aftercare (3 sources)Encounter for therapeutic drug level monitoring; Translations: [ENC THERAPEUTC DRUG LEVL MONITORING]Onset: 43-19-1770ZthcobhfMmjqd aftercare (3 sources)Encounter for follow-up examination after completed treatment for conditions other than malignant neoplasm; Translations: [Other follow-up examination]91-68-5802CyqtudpyPabnb aftercare (20 sources)Long-term current use of inhaled steroid; Translations: [superintendent terminal (current) use of inhaled steroids]Onset: 700568-47-2317IcpsgnohGuopt aftercare (3 sources)superintendent terminal (current) use of inhaled steroids; Translations: [Long-term (current) use of steroids]17-10-1827IgycafkeSodcw and unspecified benign neoplasm (2 sources)Benign lipomatous neoplasm of kidney; Translations: [Benign lipomatous neoplasm of kidney]Onset: 89-74-0121OatsqqbrCecpf bone disease and musculoskeletal deformities (20 sources)Idiopathic scoliosis; Translations: [Other idiopathic scoliosis, lumbar region]ChronicOther bone disease and musculoskeletal deformities (9 sources)Other idiopathic scoliosis, lumbar regionOnset: 09-03-2021 Resolved: 91-64-7466VxeftppYgtnl circulatory disease (1 source)Other specified symptoms and signs involving the circulatory and respiratory systemsEpisodicOther connective tissue disease (20 sources)Cramp; Translations: [Cramp and spasm]EpisodicOther connective tissue disease (5 sources)Spasm; Translations: [Other muscle spasm]33-39-1628AhjjvnqwKjqxh connective tissue disease (8 sources)Cramp and spasm; Translations: [Cramp of limb]96-91-5507KlzrbzpdLlerf connective tissue disease (2 sources)Impingement syndrome of left shoulder region; Translations: [Impingement syndrome of left shoulder]33-61-5688YdoxzvqvYfcly ear and sense organ disorders (2 sources)Sensorineural hearing loss, bilateral; Translations: [Sensorineural hearing loss, bilateral]16-12-0522SxtfdbtIqpyk eye disorders (1 source)Conjunctival hemorrhage, right eyeEpisodicOther gastrointestinal disorders (20 sources)Irritable bowel syndrome; Translations: [Irritable bowel syndrome without diarrhea]ChronicOther gastrointestinal disorders (20 sources)Irritable bowel syndrome with diarrhea; Translations: [Irritable bowel syndrome with diarrhea]Onset: 163216-42-0422XmfezvvUtcuk gastrointestinal disorders (12 sources)Irritable bowel syndrome with diarrhea; Translations: [Irritable bowel syndrome]Onset: 06-25-2021 Resolved: 26-64-3702HxdhawhRldjd gastrointestinal disorders (3 sources)Irritable bowel syndrome without diarrhea; Translations: [Irritable bowel syndrome]Onset: 357460-81-7359RhbhnanXegtd gastrointestinal disorders (20 sources)Bile acid malabsorption syndrome; 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]Onset: 144269-00-5127EhxtligVevzt gastrointestinal disorders (4 sources)Other intestinal malabsorption; Translations: [Other specified intestinal malabsorption]66-95-1773SsomfsdUrsyp gastrointestinal disorders (20 sources)Diarrhea; Translations: [Diarrhea, unspecified]EpisodicOther gastrointestinal disorders (20 sources)Dysphagia; Translations: [Dysphagia, unspecified]EpisodicOther gastrointestinal disorders (3 sources)Diarrhea, unspecifiedOnset: 07-18-2021 Resolved: 31-54-3445GjgmehslEckto lower respiratory disease (10 sources)Shortness of breath; Translations: [Shortness of breath]Onset: 46-45-4373DhdtuyxlMtvek lower respiratory disease (1 source)PleurodyniaEpisodicOther lower respiratory disease (9 sources)Other forms of dyspnea; Translations: [Other respiratory abnormalities]Onset: 63-34-9696NoddvupcGeyog lower respiratory disease (20 sources)Solitary nodule of lung; Translations: [Solitary pulmonary nodule] Onset: 568962-05-2266WnukmymfMbxjj lower respiratory disease (3 sources)Solitary pulmonary nodule; Translations: [Solitary pulmonary nodule] 63-31-4071KxebneuuSlubo nervous system disorders (20 sources)Syringomyelia; 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]Onset: 200185-75-0175LtomeqxUbatc nervous system disorders (2 sources)Syringomyelia and syringobulbiaChronicOther nervous system disorders (20 sources)Chronic pain; Translations: [Other chronic pain]Onset: 05-27-2023 29-04-6022CjieoyyPhyon nervous system disorders (20 sources)Spinal cord disease; Translations: [Disease of spinal cord, unspecified]Onset: 047389-10-6974SplpvntQcicq nervous system disorders (20 sources)Post-traumatic syrinx; 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]Onset: 289266-21-9739DdhpdgeHddbk nervous system disorders (9 sources)Neuropathy; Translations: [Idiopathic progressive neuropathy]Onset: 381605-10-5026GrrszdeIfnbl non-traumatic joint disorders (20 sources)Polyarthropathy; Translations: [Polyarthritis, unspecified] 32-81-9717CrokdchMrfds non-traumatic joint disorders (2 sources)Polyarthritis, unspecifiedChronicOther non-traumatic joint disorders (10 sources)Pain in left knee; Translations: [Pain in joint, lower leg]Onset: 19-86-9193GiwlpgkaRbjgs non-traumatic joint disorders (2 sources)Shoulder pain; Translations: [Pain in left shoulder]11-08-2024 EpisodicOther non-traumatic joint disorders (4 sources)Instability of joint of left knee; Translations: [Other instability, left knee]25-78-1373NzzsbpoaChkaa non-traumatic joint disorders (2 sources)Effusion of joint of left knee; Translations: [Effusion, left knee] 72-86-0128VcqwvkaqSpfjc nutritional; endocrine; and metabolic disorders (1 source)Obesity, unspecified; Translations: [OBESITY UNSPECIFIED]Onset: 35-18-4343ZjqlytpVlffn nutritional; endocrine; and metabolic disorders (1 source)Body mass index (BMI) 32.0-32.9, adult; Translations: [BODY MASS INDEX BMI 32.0-32.9 ADULT]Onset: 07-10-7355AeboukqKeojw nutritional; endocrine; and metabolic disorders (11 sources)Hypomagnesemia; Translations: [Disorders of magnesium metabolism] 56-91-9345HlmeebpHwasm nutritional; endocrine; and metabolic disorders (20 sources)Hypomagnesemia; Translations: [Hypomagnesemia]Onset: 03-29-2024 16-19-9992GzgexpbRiznh screening for suspected conditions (not mental disorders or infectious disease) (20 sources)Standard chest X-ray abnormal; Translations: [Abnormal findings on diagnostic imaging of other specified body structures]Onset: 12-22-2021 Resolved: 61-31-3354SinyfxvDixpg screening for suspected conditions (not mental disorders or infectious disease) (3 sources)Encounter for screening mammogram for malignant neoplasm of breast; Translations: [Encounter for screening for cardiovascular disorders]Onset: 12-15-2021 Resolved: 37-06-0763YpfzdnveJttps upper respiratory disease (20 sources)Rhinitis; Translations: [Chronic rhinitis]ChronicOther upper respiratory disease (1 source)Chronic rhinitisOnset: 10-09-2021 Resolved: 09-35-6485JwbhegpMxntu upper respiratory disease (18 sources)Chronic rhinitis; Translations: [Chronic rhinitis]ChronicPeripheral and visceral atherosclerosis (1 source)Unspecified atherosclerosis; Translations: [UNSPECIFIED ATHEROSCLEROSIS]Onset: 04-15-9681MarvhcqXswlohwt of female genital organs (20 sources)Midline cystocele; Translations: [Cystocele, midline]Onset: 479787-13-0214WqaulbjIhqfqfhcb heart disease (20 sources)Pulmonary hypertension, unspecified; Translations: [Mild pulmonary hypertension]Onset: 496181-66-5254BzkrgbnCpscoxvof heart disease (1 source)Personal history of pulmonary embolism; Translations: [PERSONAL HISTORY PULMONARY EMBOLISM]Onset: 09-26-4036EedtlvzqYxsyspky codes; unclassified (20 sources)Obstructive sleep apnea syndrome; Translations: [Obstructive sleep apnea (adult) (pediatric)]Onset: 579512-58-6820ShhtsheCtsskbpq codes; unclassified (12 sources)Obstructive sleep apnea (adult) (pediatric); Translations: [Obstructive sleep apnea (adult)(pediatric)]Onset: 06-23-2021 Resolved: 85-97-3759XkditziJtwmisds codes; unclassified (1 source)Sleep apnea, unspecified; Translations: [SLEEP APNEA UNSPECIFIED] Onset: 56-32-6473ErypinfPflxqxij codes; unclassified (1 source)Acquired absence of other specified parts of digestive tract; Translations: [ACQ ABSENCE OTH PART DIGESTV TRACT]Onset: 24-12-8231Yvcxbjnq Residual codes; unclassified (1 source)Acquired absence of both cervix and uterus; Translations: [ACQUIRED ABSENCE BOTH CERVIX AND UTERUS]Onset: 06-02-2577VurqqcttZjseomck codes; unclassified (1 source)Acquired absence of ovaries, bilateral; Translations: [ACQUIRED ABSENCE OVARIES BILATERAL]Onset: 03-99-8578KydmldlsQoqfwzehc and history of mental health and substance abuse codes (20 sources)Personal history of nicotine dependence; Translations: [Tobacco use and exposure - finding]Onset: 325142-55-2240SwgefdagMehyulx on above:1ppd x 17 years, quit 2001Spondylosis; intervertebral disc disorders; other back problems (12 sources)Sacrococcygeal disorders, not elsewhere classified; Translations: [Dorsalgia, unspecified]Onset: 12-15-2021 Resolved: 61-78-0715UrvvwdozBzyjwwx and strains (1 source)Sprain of unspecified site of left knee, initial encounter; Translations: [SPRAIN UNS SITE LT KNEE INITIAL]Onset: 00-38-9940Mxoiczfj Superficial injury; contusion (2 sources)Contusion of left knee, initial encounter; Translations: [Contusion of right hip, initial encounter]Onset: 92-95-9591JvovyaunCpbnshq disorders (20 sources)Goiter; Translations: [Nontoxic goiter, unspecified]Chronic Unclassified (12 sources)I48.91 - Unspecified atrial fibrillation Past or Other Problems Problem ClassificationProblemDateDocumented DateEpisodic/ChronicAbdominal hernia (18 sources)Hernia of anterior abdominal wall; Translations: [Ventral hernia without obstruction or gangrene]Onset: 12-04-2013 Resolved: 267985-88-2063UjbiopxvBjbexekzd pain (20 sources)Abdominal pain; Translations: [Unspecified abdominal pain]Onset: 99-60-1372PtwvxdkqYtiubhtl foot deformities (20 sources)Bunion; Translations: [Bunion of left foot]Onset: 10-29-2017 59-99-1135EwfqcwqmHhoef and unspecified renal failure (20 sources)Acute injury of kidney; Translations: [Acute kidney failure, unspecified]Onset: 699091-43-0143RsrtmwikYlfal bronchitis (20 sources)Acute bronchitis; Translations: [Acute bronchitis, unspecified] Onset: 202646-04-3566EjzrexglMgsjvkh dysrhythmias (20 sources)Bradycardia, unspecified; Translations: [Other specified cardiac dysrhythmias]Onset: 361134-21-6020UwrbhvrrOzrxmvwrgbzie symptoms and ill- defined conditions (20 sources)Urgent desire to urinate; Translations: [Urgency of urination]Onset: 166534-04-4521SyyybnpxZldviyg and fatigue (20 sources)Malaise; Translations: [Other malaise]Onset: EpisodicOther and unspecified benign neoplasm (20 sources)Angiomyolipoma of kidney; Translations: [Benign lipomatous neoplasm of kidney]Onset: 854606-63-9445ZplcefltFbgxe connective tissue disease (20 sources)Plantar fascial fibromatosis; Translations: [Plantar fascial fibromatosis]Onset: 923439-01-7158LcanfkqpBsens connective tissue disease (20 sources)Pain in right hand; Translations: [Pain in right hand]Onset: 863514-26-8845HybuzlbhJzzjq lower respiratory disease (20 sources)Dyspnea; Translations: [Dyspnea, unspecified]Onset: 12-28-2022 01-39-5272BjlkonciAoczc non-traumatic joint disorders (20 sources)Pain in right knee; Translations: [Pain in joint, lower leg]Onset: 704756-47-4716ZebggdlfUmupn non-traumatic joint disorders (20 sources)Pain of right wrist; Translations: [Pain in right wrist]Onset: 606841-86-6950VywfgtugDdcku upper respiratory infections (20 sources)Acute frontal sinusitis, unspecified; Translations: [Upper respiratory infection]Onset: 30-49-8482PaetdzjwXvxsxqhve; thrombophlebitis and thromboembolism (20 sources)Thromboembolism of vein; Translations: [Acute embolism and thrombosis of unspecified vein]Onset: 240946-91-3390KybztatfXwpxpfyc codes; unclassified (20 sources)History of hernia repair; Translations: [Other specified postprocedural states]Onset: 203455-97-3597YlfgxbzyKzuqxzot codes; unclassified (20 sources)Chill; Translations: [Chills (without fever)]Onset: 09-06-2023 17-27-0305OdfwwzwnGkxgzxidremm (2 sources)Acute pain of left dpjq17-09-6802Grlgoyaxkngf (1 source)Patient encounter uespys43-08-7739Silaato tract infections (20 sources)Urinary tract infectious disease; Translations: [Urinary tract infection, site not specified]Onset: 842889-78-1984Jmzszpxt Results Test NameValueInterpretationReference RangeFacilityECH echo transthoracicon 03-59-3270MZN echo transthoracicOH[facility]HE[facility] [place] [address] [place] [address] Echocardiogram Signed Patient: Kimberly Everett MR#: [id number] 529 : 1950 Acct:[id number] Age/Sex: 74 / F ADM Date: 06/08/25 Loc: Room: Type: [facility] Attending Dr: Emmanuelle Tipton MD Ordering Provider: Emmanuelle Tipton MD Date of Service: 06/08/25 ECH/ECH echo transthoracic: I50.32 - Chronic diastolic (congestive) heart failure Copies to: Emmanuelle Tipton MD Weight: 151 lb Performed By: MISBAH Holman BSA: 1.7 m2 BP: 129/57 mmHg HR: 77 Reason For Study: I50.32 - Chronic diastolic (congestive) heart failure History: Pacemaker,Hypertension,Palpitations,Rheumatic Fever,History of smoking,family history of CHF Interpretation Summary Ejection Fraction = 60-65%. The left ventricular size and thickness are normal. No regional wall motion abnormalities noted. A variety of Doppler measurements indicate impaired left ventricular relaxation, which is associated with grade I/IV or mild diastolic dysfunction. There is trace tricuspid regurgitation. Procedure/Quality: A two-dimensional transthoracic echocardiogram with color flow and Doppler was performed. The study was technically good in quality. Left Ventricle: The left ventricular size and thickness are normal. Ejection Fraction = 60-65%. A variety of Doppler measurements indicate impaired left ventricular relaxation, which is associated with grade I/IV or mild diastolic dysfunction. No regional wall motion abnormalities noted. Left Atrium: The left atrium appears normal in size. Right Atrium: The right atrium appears normal in size. Right Ventricle: The right ventricle is normal in size and function. Aortic Valve: The aortic valve is normal in structure. No hemodynamically significant valvular aortic stenosis. No aortic regurgitation is present. Mitral Valve: The mitral valve is normal in structure. No significant mitral valve stenosis. There is no mitral regurgitation noted. Tricuspid Valve: The tricuspid valve is normal in structure. There is trace tricuspid regurgitation. Pulmonic Valve: The pulmonic valve is not well visualized. No significant pulmonic regurgitation. Arteries: The aortic root is normal size. Pericardium/Pleura: No pericardial effusion seen. IVC/Hepatic Veins: The inferior vena cava is normal in size, with a normal collapsibility index. Measurements with Normals IVSd: 1.1 cm (0.7-1.1 cm)LVIDd: 3.7 cm (3.7-5.4 cm) LVPWd: 1.1 cm (0.7-1.1 cm)LVIDs: 2.4 cm (2.3-3.6 cm) LA dimension: 3.1 cm (2.3-4.0 cm)Ao root diam: 2.7 cm(2.0-3.6 cm) asc Aorta Diam: 2.9 cm(2.1-3.4cm) Doppler with Normals RVSP(TR): 28.2 mmHg (18-35mmHg) LV V1 max: 95.2 cm/sec (0.7-1.7m/s)MV E max fe: 82.0 cm/sec(0.8-1.3m/s) MV A max fe: 125.8 cm/sec(0.0-0.0m/s) MV E/A: 0.65 (<1.5) MMode/2D Measurements Calculations RVDd: 2.5 cm FS: 34.6 % Ao root area: LVOT diam: 1.7 cm TAPSE: 2.1 cm EDV(Teich): 5.6 cm2 LVOT area: 2.2 cm2 RV S Fe: 57.3 ml 11.7 cm/sec ESV(Teich): 20.3 ml EF(Teich): 64.6 % __ LVLd ap4: 6.1 cm SV(MOD-sp4): LAV(MOD-sp4): LA A4 area: 13.2 cm2 EDV(MOD-sp4): 19.8 ml 32.5 ml LA length (vol): 31.5 ml 4.0 cm LVLs ap4: 4.6 cm ESV(MOD-sp4): 11.7 ml EF(MOD-sp4): 62.9 % Doppler Measurements Calculations MV dec time: MV V2 max: E/E' lat: 8.2 MV dec slope: 0.51 sec 135.7 cm/sec E/E' med: 11.1 159.3 cm/sec2 MV max P.4 mmHg MV V2 mean: 79.2 cm/sec MV mean P.9 mmHg MV V2 VTI: 30.6 cm MVA(VTI): 1.5 cm2 __ Ao V2 max: LV V1 max PG: TV max PG: TR max fe: 192.9 cm/sec 3.6 mmHg 23.0 mmHg 241.1 cm/sec Ao max PG: LV V1 mean PG: TR max P.2 mmHg 14.9 mmHg 1.9 mmHg RAP systole: 5.0 mmHg Ao mean PG: LV V1 mean: 8.5 mmHg 65.2 cm/sec Ao V2 mean: LV V1 VTI: 21.3 cm 138.7 cm/sec Ao V2 VTI: 37.0 cm TABITHA(I,D): 1.3 cm2 TABITHA(V,D): 1.1 cm2 Transcribed By: MAZIN Performed At: 06/08/25 1346 Signed By: Emmanuelle Tipton MD 06/09/25 0758[facility] Physician [facility] Basophils [#/volume] in Blood by Automated countOrdered By: Marco Antonio Llamas on 45-29-2889Csiotplsx (Bld) [#/Vol]0.1 10*3/uLNormal0.0-0.2FSelect Medical Specialty Hospital - Boardman, IncComment on above:Order Comment: CALL BACKResult Comment: PERFORMED BY: [place] [address] PATHOLOGIST TRADE SHOW SPECIALIST ESTEFANIA TRAN M.D.Performed By: #### CBC #### [place] [address] USABasophils/100 leukocytes in Blood by Automated count Ordered By: Marco Antonio Llamas on 62-17-7146Fusjagnel/100 WBC (Bld)0.9 %Normal. Genesis HospitalComment on above:Order Comment: CALL BACK Performed By: #### CBC #### [place] [address] USAComplete Blood Count Auto Diffon 00-64-1411Wsyn Corpuscular HGB Conc34.0 g/xLZtqwla43.0-35.0The [facility] Physician GroupComment on above:Order Comment: CALL BACKPerformed By: #### CBC #### [place] [address] USANRBC%0.1 /100{WBC}Normal0-0.5[facility] Comment on above:Order Comment: CALL BACKPerformed By: #### CBC #### [place] [address] USAWhite Blood Count5.8 [CFU]/mLNormal3.8-11.6The [facility] Physician GroupComment on above:Order Comment: CALL BACKPerformed By: #### CBC #### [place] [address] USAEosinophils [#/volume] in Blood by Automated countOrdered By: Marco Antonio Llamas on 57-20-9549Ztyjzkdvops (Bld) [#/Vol]0.1 10*3/uLNormal 0.0-0.45Gen[facility] HospitalComment on above:Order Comment: CALL BACKPerformed By: #### CBC #### [address] [place] [address] USAEosinophils/100 leukocytes in Blood by Automated count Ordered By: Marco Antonio Llamas on 05-63-8512Vlexvdnyqeb/100 WBC (Bld)1.3 %Normal. [facility] HospitalComment on above:Order Comment: CALL BACK Performed By: #### CBC #### [place] [address] USAErythrocyte distribution width [Ratio] by Automated count Ordered By: Marco Antonio Llamas on 98-75-5379Rlojoomfwim distribution width (RBC) [Ratio]13.6 %Ybehmz46.9-15.3FSelect Medical Specialty Hospital - Boardman, IncComment on above: Order Comment: CALL BACKPerformed By: #### CBC #### [place] [address] USAErythrocytes [#/volume] in Blood by Automated countOrdered By: Marco Antonio Llamas on 30-16-4878EWM (Bld) [#/Vol]4.04 10*6/uLNormal3.60-5.00 [facility] HospitalComment on above:Order Comment: CALL BACK Performed By: #### CBC #### [place] [address] USAHematocrit [Volume Fraction] of Blood by Automated count Ordered By: Marco Antonio Llamas on 66-30-4961Wvivkvdhci (Bld) [Volume fraction]37.4 % Qwsgdc68.0-46.4FSelect Medical Specialty Hospital - Boardman, IncComment on above:Order Comment: CALL BACKPerformed By: #### CBC #### [place] [address] USAHemoglobin [Mass/volume] in BloodOrdered By: Marco Antonio Llamas on 88-90-6018Tlrktvyscz (Bld) [Mass/Vol]12.7 g/iCRlsgcz70.8-15.4 [facility] HospitalComment on above:Order Comment: CALL BACK Performed By: #### CBC #### [place] [address] USALeukocytes [#/volume] corrected for nucleated erythrocytes in Blood by Automated counOrdered By: Marco Antonio Llamas on 09-94-0710YSI corrected for nucl RBC Auto (Bld) [#/Vol]5.8 10*3/uL3.8-11.6FSelect Medical Specialty Hospital - Boardman, IncLeukocytes [#/volume] in Blood by Automated countOrdered By: Marco Antonio Llamas on 45-77-0095PBZ (Bld) [#/Vol]5.8 10*3/uLNormal3.8-11.6FSelect Medical Specialty Hospital - Board[facility], IncComment on above:Order Comment: CALL BACKPerformed By: #### CBC #### [facility] [address] [place] [address] USALymphocytes [#/volume] in Blood by Automated countOrdered By: Marco Antonio Llamas on 54-28-4115Gpvhynceugo (Bld) [#/Vol]1.6 10*3/uLNormal 1.00-4.8Genesis HospitalComment on above:Order Comment: CALL BACKPerformed By: #### CBC #### [facility] [address] [place] [id number] USALymphocytes/100 leukocytes in Blood by Automated count Ordered By: Marco Antonio Llamas on 40-67-1733Doqqqoumays/100 WBC (Bld)27.3 %Normal. [facility] HospitalComment on above:Order Comment: CALL BACK Performed By: #### CBC #### [place] [address] [facility] [Entitic mass] by Automated countOrdered By: Marco Antonio Llamas on 57-39-2075NSL (RBC) [Entitic mass]31.5 ewSzxzul44.7-34.3FSelect Medical Specialty Hospital - Boardman, IncComment on above:Order Comment: CALL BACKPerformed By: #### CBC #### [place] [address] [facility] Auto (RBC) [Mass/Vol]Ordered By: Marco Antonio Llamas on 48-69-9158RZSN (RBC) [Mass/Vol]34.0 g/dL32.0-35.0Gen[facility] HospitalMCV [Entitic volume] by Automated countOrdered By: Marco Antonio Llamas on 72-09-9173JXC (RBC) [Entitic vol]92.7 pWAehioz29-597DabdsodehGenesis HospitalComment on above:Order Comment: CALL BACKPerformed By: #### CBC #### [facility] [address] [place] [address] USAMonocytes [#/volume] in Blood by Automated countOrdered By: Marco Antonio Llamas on 09-19-6124Igpudnzme (Bld) [#/Vol]0.4 10*3/uLNormal0.0-0.8 [facility] HospitalComment on above:Order Comment: CALL BACK Performed By: #### CBC #### [place] [address] USAMonocytes/100 leukocytes in Blood by Automated count Ordered By: Marco Antonio Llamas on 40-81-8411Ymusyiwnw/100 WBC (Bld)7.1 %Normal. [facility] HospitalComment on above:Order Comment: CALL BACK Performed By: #### CBC #### [place] [address] USANeutrophils [#/volume] in Blood by Automated countOrdered By: Marco Antonio Llamas on 29-04-7853Kjtlpozperw (Bld) [#/Vol]3.7 10*3/uLNormal 1.8-7.7FSelect Medical Specialty Hospital - Board[facility], IncComment on above:Order Comment: CALL BACKPerformed By: #### CBC #### [place] [address] USANeutrophils/100 leukocytes in Blood by Automated count Ordered By: Marco Antonio Llamas on 03-83-5496Umgbpsjyaby/100 WBC (Bld)63.4 %Normal. [facility] HospitalComment on above:Order Comment: CALL BACK Performed By: #### CBC #### [place] [address] USANucleated erythrocytes [Presence] in Blood by Automated countOrdered By: Marco Antonio Llamas on 72-85-1955Apajhrchn RBC Auto Ql (Bld)0.1 /100{WBC}0-0.5FSelect Medical Specialty Hospital - Board[facility], IncPlatelet mean volume [Entitic volume] in Blood by Automated countOrdered By: Marco Antonio Llamas on 05-30-2025 Platelet mean volume (Bld) [Entitic vol]7.7 fLNormal6.3-10.7FSelect Medical Specialty Hospital - Board[facility], IncComment on above:Order Comment: CALL BACKPerformed By: #### CBC #### [place] [address] USAPlatelets [#/volume] in Blood by Automated countOrdered By: Marco Antonio Llamas on 95-07-8546Gmpwrtrgn (Bld) [#/Vol]287 10*3/uZPiojoh193-925 [facility] HospitalComment on above:Order Comment: CALL BACK Performed By: #### CBC #### [address] [address] USACNPNon 24-20-1249IMIFPijinmtdp (CARDMN) KIMBERLY EVERETT ([id number]) 1950 F Date Time Provider Department 04/20/25 GARLAND LOCKETT During your visit today, we recorded the following information about you: Billie Garza 04/20/2025 4:40 PM Signed April 20, 2025 Patient Contact Number: [phone] (home) [phone] (cell) Patient last seen within the last year: Yes Reason For Call: Medication Issue/Question: Patient called requesting to discuss her Eliquis medication. Please advise Thank you Billie Hay, Financial Investment Adviser Nel Ac RN 04/24/2025 10:16 AM Signed Pt scheduled appointment to discuss watchman in october. Susan SERVIN Allergies As of Date: 04/20/2025 Noted Allergy Reaction AMOXICILLIN 10/16/2013 2 - [...] Itching MONTELUKAST 11/03/2023 2 - Rash NEOSPORIN (VVUOHAUK-ZMHVWMOVCC-QS*10/16/2013 2 - Rash SULFA (SULFONAMIDE ANTIBIOTICS) 10/16/2013 2 - Rash 4 - Hives Date Reviewed: 12/11/2024 Reviewed by: Nel Bray RN - Fully Assessed Reason for Visit: Medication Question [0068] Prescriptions as of 04/24/2025 - ELIQUIS 5 mg tab(s) TAKE 1 TABLET BY MOUTH TWICE A DAY - oxyCODONE-acetaminophen (PERCOCET) 5-325 mg tablet Take 1 tablet by mouth every 8 hours as needed for pain. Takes one half tab at night - loratadine (CLARITIN) 10 mg tablet Take [...] 60 mg by mouth once daily. - bswellhekvi-fwjutnysq-syuerffy (TRELEGY ELLIPTA) 200-62.5-25 mcg inhalation powder Inhale 1 Puff as instructed once daily. - traZODone (DESYREL) 50 mg tablet Take 50 mg by mouth daily at bedtime. - loperamide (ANTI-DIARRHEAL) 2 mg cap(s) Take 2 mg by mouth once daily. - hyoscyamine sublingual (LEVSIN SL) 0.125 mg Dissolve 0.125 mg under the tongue three times a day. - Ipratropium [place] (ATROVENT) 21 mcg (0.03 %) nasal spray Use 2 Sprays in the nose once daily. - pantoprazole DR (PROTONIX) 40 mg tablet Take 40 mg by mouth once daily. - ALBUTEROL SULFATE (PROAIR HFA INHALATION) Inhale [...] Drop in both eyes twice daily. - baclofen 5 mg tablet Take 10 [...] by this patient by: PATIENT Foster Gutierrez [facility] Problem List As Of Date 04/20/2025 Noted Resolved Hypertension [I10] 12/04/2013 COPD (chronic [...] congestive heart failure (HCC*11/03/2023 Encounter Status:Closed by NEL AC on 04/24/25[facility] RETROPERITONEAL COMPLETEon 18-62-9321HE RETROPERITONEAL COMPLETEUS RETROPERITONEAL COMPLETE HISTORY: A 74-year-old female with a history of the angiomyolipoma. Frequent urination. Follow-up explanation. TECHNIQUE: Multiple real-time images of the both kidneys and the urinary bladder are obtained. Color Doppler study is performed. COMPARISON: Comparison is made with prior renal ultrasound examination of 04/13/2023, 05/03/[address] scan of the abdomen and pelvis of 01/28/2022. FINDINGS: Both kidneys are normal in position and configuration. Right kidney measures 9.7 x 5.7 x 5.1 Cms. Right renal cortical thickness measures 0.7 Cms . Left kidney measures 9.6 x 4.4 x 4.7 Cms.Left renal cortical thickness measures 0.7 Cms. There is no evidence of echogenic calculi or hydronephrosis in the either kidney. Renal cortical echoes are within normal limits. There is again noted echogenic mass in the inferiorlateral portion of the left kidney and measures 1.4 x 1.5 x 1.3 cm. Appearance is consistent with angiomyolipoma. There is a cyst in the right mid kidney and measures 1.2 x 1.1 x 1.0 cm. Prevoid urinary bladder volume is 103 mL. Bilateral ureteric jets are visualized. No intraluminal abnormality seen. 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 * There is a 1.2 cm cyst in the right mid kidney. * No evidence of echogenic calculi or hydronephrosis in the either kidney. Finalized by Dominguez Mancini MD on 04/14/2025 7:11 PMNormalUniversity Hospitals TriPoint Medical Centerca Gran[facility] Hills Community HospitalFPG ECG *CARDIOLOGY ONLY*on 54-02-7704LWG ECG *CARDIOLOGY ONLY*[facility] Main [address] [address] Electrocardiograph Report Signed Patient: Kimberly Everett MR#: [id number] : 1950 Acct:[id number] Age/Sex: 74 / F ADM Date: 04/10/25 Loc: EKGCARD Room: Type: [facility] Attending Dr: Emmanuelle Tipton MD Ordering Provider: Emmanuelle Tipton MD Date of Service: 04/10/2510/03/1346 ECG/FPG ECG *CARDIOLOGY ONLY*: I50.32 - Chronic diastolic (congestive) heart failure Copies to: Test Reason : Blood Pressure : */* mmHG Vent. Rate : 77 BPM Atrial Rate : 77 BPM P-R Int : 198 ms QRS Dur : 86 ms QT Int : 378 ms P-R-T Axes : 42 -26 54 degrees QTcB Int : 427 ms Atrial-sensed ventricular-paced rhythm Confirmed by Emmanuelle Tipton ([id number]) on 04/12/2025 10:55:34 AM Referred By: Electronically Signed By: Emmanuelle Tipton Transcribed By: MUS Signed By Emmanuelle Tipton MD [address] [place] [address] Physician GroupAlgnetic resonance imaging report Ordered By: Terrell Schaffer on 20-70-0508Lacqw reportOHIOHEALTH GROVE CITY [facility]IST [facility] Main [address] [address] MRI Report Signed Patient: Kimberly Everett MR#: [id number] : 1950 Acct:[id number] Age/Sex: 74 / F ADM Date: 5 Loc: MR Room: Type: [facility] Attending Dr: Lisa Samayoa PA-C Copies to: Lisa Samayoa PA-C~ Ordering Provider: Lisa Samayoa PA-C Date of Service: 03/14/25 MR/MR knee LT wo con: M25.562, M25.362 ([id number]) XR/XR pre/post mri xray: M25.562, M25.362 MR knee LT wo con, XR pre/post mri xray 03/14/2025 8:33 AM SIGNS AND SYMPTOMS: Chronic left knee pain PROTOCOL: Multiplanar multisequence MR images of the left knee without contrast. Frontal and lateral radiographs of the left knee COMPARISON: 12/11/2022 FINDINGS: Radiographs of the left knee: There is moderate narrowing of the weightbearing joint spaces greatest medially with spurring alongthe medial femoral condyle and medial tibial plateau. Thereis mild to moderate patellofemoral jointspace loss. There is a small joint effusion. No soft tissue swelling. No fracture. MRI LEFT KNEE: Fluid: There is a small joint effusion. No Elizabeth's cyst.. Medial compartment: Medial meniscus: There is increased signal intensity along the posterior horn ofthe medial meniscuswith a small horizontally oriented tear. No displaced fragments. Medial collateral ligament: Intact. Medial femoral condyle cartilage: There is full thickness chondromalacia. There is subchondral cystic change along the posterior articular surface. Medial tibial plateau cartilage: There is full thickness chondromalacia. Lateral compartment: Lateral meniscus: Intact. Lateral collateral ligament: Intact. Lateral femoral condyle cartilage: There is partial thickness chondromalacia. Lateral tibial plateau cartilage: There is partial thickness chondromalacia. Posterolateral corner: Popliteus tendon: Intact. Popliteofibular ligament: Intact. Proximal tibiofibular joint: Preserved. Anterior compartment: Alignment: Normal. Quadriceps tendon: Intact. Patellar tendon: Intact. Retinaculum: Medial intact. Lateral intact. Patellar cartilage: There is full thickness chondromalacia along the medial articular facet. Trochlea: There is partial thickness chondromalacia.. . Plica: None. Hoffa fat pad: Normal. Intercondylar compartment: Anterior cruciate ligament: Intact. Posterior cruciate ligament: Intact. Bones (other than subarticular marrow): Normal. Muscles: Normal. Vessels: Normal. Nerves: Normal. MR/MR knee LT wo con IMPRESSION: There is increased signal intensity along the posterior horn of the medial meniscus with a small horizontally oriented tear. No displaced fragments. There is full thickness chondromalacia along the medial weightbearing joint space with subchondral cystic change along the posterior articular surface of the medial femoral condyle. There is full thickness chondromalacia along the medial articular facet of the patella. There is partial thickness chondromalacia within the lateral weightbearing jointspace. There is a small joint effusion. Impression dictated by: Terrell Schaffer M.D. 03/14/2025 12:23 PM Dictation Location: [place] [address] Transcribed By: [facility] 03/14/25 1223 Dictated By: Terrell Schaffer II, MD 03/14/25 1213 Signed By: 03/14/25 1223 [facility] Work Phone: xr pre/post mri xrayon [id number] pre/post mri xray [facility] [place] [address] MRI Report Signed Patient: Kimberly Everett MR#: [id number] : 1950 Acct:[id number] Age/Sex: 74 / F ADM Date: 03/14/25 Loc: Room: Type: [facility] Attending Dr: Lisa Samayoa PA-C Copies to: Lisa Samayoa PA-C Ordering Provider: Lisa Samayoa PA-C Date of Service: 03/14/25 MR/MR knee LT wo con: M25.562, M25.362 ([id number]) XR/XR pre/post mri xray: M25.562, M25.362 MR knee LT wo con, XR pre/post mri xray 03/14/2025 8:33 AM SIGNS AND SYMPTOMS: Chronic left knee pain PROTOCOL: Multiplanar multisequence MR images of the left knee without contrast. Frontal and lateral radiographs of the left knee COMPARISON: 12/11/2022 FINDINGS: Radiographs of the left knee: There is moderate narrowing of the weightbearing joint spaces greatest medially with spurring along the medial femoral condyle and medial tibial plateau. There is mild to moderate patellofemoral joint space loss. There is a small joint effusion. No soft tissue swelling. No fracture. MRI LEFT KNEE: Fluid: There is a small joint effusion. No Elizabeth's cyst.. Medial compartment: Medial meniscus: There is increased signal intensity along the posterior horn of the medial meniscus with a small horizontally oriented tear. No displaced fragments. Medial collateral ligament: Intact. Medial femoral condyle cartilage: There is full thickness chondromalacia. There is subchondral cystic change along the posterior articular surface. Medial tibial plateau cartilage: There is full thickness chondromalacia. Lateral compartment: Lateral meniscus: Intact. Lateral collateral ligament: Intact. Lateral femoral condyle cartilage: There is partial thickness chondromalacia. Lateral tibial plateau cartilage: There is partial thickness chondromalacia. Posterolateral corner: Popliteus tendon: Intact. Popliteofibular ligament: Intact. Proximal tibiofibular joint: Preserved. Anterior compartment: Alignment: Normal. Quadriceps tendon: Intact. Patellar tendon: Intact. Retinaculum: Medial intact. Lateral intact. Patellar cartilage: There is full thickness chondromalacia along the medial articular facet. Trochlea: There is partial thickness chondromalacia.. . Plica: None. Hoffa fat pad: Normal. Intercondylar compartment: Anterior cruciate ligament: Intact. Posterior cruciate ligament: Intact. Bones (other than subarticular marrow): Normal. Muscles: Normal. Vessels: Normal. Nerves: Normal. MR/MR knee LT wo con IMPRESSION: There is increased signal intensity along the posterior horn of the medial meniscus with a small horizontally oriented tear. No displaced fragments. There is full thickness chondromalacia along the medial weightbearing joint space with subchondral cystic change along the posterior articular surface of the medial femoral condyle. There is full thickness chondromalacia along the medial articular facet of the patella. There is partial thickness chondromalacia within the lateral weightbearing joint space. There is a small joint effusion. Impression dictated by: Terrell Schaffer M.D. 03/14/2025 12:23 PM Dictation Location: [place] [address] Transcribed By: [facility] 03/14/25 1223 Dictated By: Terrell Schaffer II, MD 03/14/25 1213 Signed By: 03/14/25 1223[facility] Physician GroupCNPNon [id number] (CAEPMN) KARLOSKIMBERLY Tita ([id number]) 1950 F Date Time Provider Department 02/22/25 GARDENIA FORD During your visit today, we recorded the following information about you: Gardenia Ford RN 02/22/2025 5:05 PM Signed Received transfer request from [facility] device [facility]. Called and left VM with patient to confirm. Allergies As of Date: 02/22/2025 Noted Allergy Reaction AMOXICILLIN 10/16/2013 2 - [...] Itching MONTELUKAST 11/03/2023 2 - Rash NEOSPORIN (URWDJSTO-EVZNFKVPNN-HN*10/16/2013 2 - Rash SULFA (SULFONAMIDE ANTIBIOTICS) 10/16/2013 2 - Rash 4 - Hives Date Reviewed: 12/11/2024 Reviewed by: Nel Bray, RN - Fully Assessed Reason for Visit: Remote Pacemaker Follow Up [1925] Prescriptions as of 02/22/2025 - ELIQUIS 5 mg tab(s) TAKE 1 TABLET BY MOUTH TWICE A DAY - oxyCODONE-acetaminophen (PERCOCET) 5-325 mg tablet Take 1 tablet by mouth every 8 hours as needed for pain. Takes one half tab at night - loratadine (CLARITIN) 10 mg tablet Take [...] 60 mg by mouth once daily. - wckikimuzrh-octfdkqyo-myjocdea (TRELEGY ELLIPTA) 200-62.5-25 mcg inhalation powder Inhale 1 Puff as instructed once daily. - traZODone (DESYREL) 50 mg tablet Take 50 mg by mouth daily at bedtime. - loperamide (ANTI-DIARRHEAL) 2 mg cap(s) Take 2 mg by mouth once daily. - hyoscyamine sublingual (LEVSIN SL) 0.125 mg Dissolve 0.125 mg under the tongue three times a day. - Ipratropium [place] (ATROVENT) 21 mcg (0.03 %) nasal spray Use 2 Sprays in the nose once daily. - pantoprazole DR (PROTONIX) 40 mg tablet Take 40 mg by mouth once daily. - ALBUTEROL SULFATE (PROAIR HFA INHALATION) Inhale [...] Drop in both eyes twice daily. - baclofen 5 mg tablet Take 10 [...] by this patient by: PATIENT Foster Gutierrez [facility] Problem List As Of Date 02/22/2025 Noted Resolved Hypertension [I10] 12/04/2013 COPD (chronic [...] congestive heart failure (HCC*11/03/2023 Encounter Status:Closed by GARDENIA FORD on 02/22/25NoOhioHealth Doctors HospitalCampy coli+jejuni BD MaxOrdered By: Marco Antonio Llamas on 01-12-2025. coli+jejuni tuf gene NNEKA+probe Ql (Stl)Campy coli+jejuni BD MaxNegativeGenesis HospitalComment on above:Campylobacter test includes C. jejuni and C. coli.C. coli+jejuni tuf gene NNEKA+probe Ql (Stl)NegativeNegativeGenesis HospitalComment on above:Campylobacter test includes C. jejuni and C. coli.Campylobacter stool cultureOrdered By: Marco Antonio Llamas on 01-12-2025 Campylobacter sp identified Org specific cx Nom (Stl)Campylobacter stool culture Genesis HospitalCampylobacter sp identified Org specific cx Nom (Stl)Genesis HospitalClostridioides difficile toxin B tcdB gene [Presence] in Stool by NNEKA with probe deteOrdered By: Marco Antonio Llamas on 01-12-2025. difficile toxin B tcdB gene NNEKA+probe Ql (Stl)Clostridioides difficile toxin B tcdB gene [Presence] in Stool by NNEKA with probe deteNegative Genesis HospitalComment on above:Testing performed by RT-PCRC. difficile toxin B tcdB gene NNEKA+probe Ql (Stl)NegativeNegativeGenesis HospitalComment on above:Testing performed by RT-PCRClostridium Difficile on 59-56-9950Wzlnelzlweu DifficileNegativeNormalNegativeThe [facility] Physician GroupComment on above:Result Comment: Testing performed by RT-PCR PERFORMED BY: [place] [address] PATHOLOGIST TRADE SHOW SPECIALIST ESTEFANIA TRAN M.D.Performed By: #### LCSC SS, GIARDIA, GI PROFILE, STL #### [facility] , #### ENT BACT PANEL, CDT #### [facility] [address] [place] [address] USACryptosporidium sp DNA [Presence] in Stool by NNEKA with non-probe detectionOrdered By: Marco Antonio Llamas on 18-84-4408Lavrdtzxgyydxjl sp DNA NNEKA+non-probe Ql (Stl)Not detectedNot DetectedGenesis HospitalDetection in stool of any of Campylobacter coli, Campylobacter jejuni, and CampylobacOrdered By: Marco Antonio Llamas on 01-12-2025. coli+jejuni+upsaliensis DNA NNEKA+non-probe Ql (Stl)Not detectedNot DetectedGenesis HospitalDetection in stool of any of Vibrio cholerae, Vibrio parahaemolyticus, and Vibrio vulOrdered By: Marco Antonio Llamas on 01-12-2025V. cholerae+parahaemolyticus+vulnificus DNA NNEKA+non-probe Ql (Stl)Not detectedNot DetectedGenesis HospitalDetection in stool of either or both Clostridium difficile toxin A and B genes by tarOrdered By: Marco Antonio Llamas on 01-12-2025. difficile toxin A+B tcdA+tcdB genes NNEKA+non-probe Ql (Stl)Not detectedNot DetectedGenesis HospitalDetection in stool of either or both Salmonella enterica and Salmonella bongori DNA bOrdered By: Marco Antonio Llamas on 01-12-2025. enterica+bongori DNA NNEKA+non-probe Ql (Stl)Not detectedNot DetectedGenesis HospitalDetection in stool of either or both enteroaggregative Escherichia coli Roe plasmid aOrdered By: Marco Antonio Llamas on 01-12-2025. coli enteroaggregative Roe plasmid aggR+aatA genes NNEKA+non-probe Ql (Stl)Not detectedNot DetectedGenesis Hospital Escherichia coli O157 DNA [Presence] in Stool by NNEKA with non-probe detection Ordered By: Marco Antonio Llamas on 01-12-2025. coli O157 DNA NNEKA+non-probe Ql (Stl) Not applicableNot DetectedGenesis HospitalEscherichia coli Shiga-like toxins 1 and 2 assayOrdered By: Marco Antonio Llamas on 01-12-2025. coli shiga-like toxin 1 and 2 IA Nom (Stl)Escherichia coli Shiga-like toxins 1 and 2 assayGenesis HospitalE. coli shiga-like toxin 1 and 2 IA Nom (Stl)Genesis HospitalEscherichia coli Stx1 and Stx2 toxin stx1+stx2 genes [Presence] in Stool by NNEKA withOrdered By: Marco Antonio Llamas on 01-12-2025. coli stx1+stx2 genes NNEKA+non-probe Ql (Stl)Not detectedNot Detected [facility] Hospitalcherichia coli enteropathogenic eae gene [Presence] in Stool by NNEKA with non-probeOrdered By: Marco Antonio Llamas on 01-12-2025. coli enteropathogenic eae gene NNEKA+non-probe Ql (Stl)Not detected Not DetectedGenesis HospitalEscherichia coli enterotoxigenic ltA+st1a+st1b genes [Presence] in Stool by NNEKA withOrdered By: Marco Antonio Llamas on 01-12-2025. coli enterotoxigenic ltA+st1a+st1b genes NNEKA+non-probe Ql (Stl)Not detectedNot DetectedGenesis HospitalGastrointestinal Profile, PCRon [id number] F 40/41Not detectedNormalNot DetectedThe [facility] Physician GroupComment on above:Performed By: #### LCSC SS, GIARDIA, GI PROFILE, STL #### [facility] , #### ENT BACT PANEL, CDT #### [place] [address] USAAstrovirusNot detectedNormalNot DetectedThe [facility] Physician GroupComment on above:Performed By: #### LCSC SS, GIARDIA, GI PROFILE, STL #### [facility] , #### ENT BACT PANEL, CDT #### [place] [address] USAC Difficile Toxin A/BNot detectedNormalNot DetectedThe [facility] Physician GroupComment on above:Performed By: #### LCSC SS, GIARDIA, GI PROFILE, STL #### [facility] , #### ENT BACT PANEL, CDT #### [place] [address] USACampylobacterNot detectedNormalNot DetectedThe [facility] Physician GroupComment on above:Performed By: #### LCSC SS, GIARDIA, GI PROFILE, STL #### [facility] , #### ENT BACT PANEL, CDT #### [place] [address] USACryptosporidiumNot detectedNormalNot DetectedThe [facility] Hospital GroupComment on above:Performed By: #### LCSC SS, GIARDIA, GI PROFILE, STL #### [facility] , #### ENT BACT PANEL, CDT #### [place] [address] USACyclospora cayetanensisNot detectedNormalNot DetectedThe [facility] Physician GroupComment on above:Performed By: #### LCSC SS, GIARDIA, GI PROFILE, STL #### [facility] , #### ENT BACT PANEL, CDT #### [place] [address] USAE coli S633Chj applicableNormalNot DetectedThe [facility] Physician GroupComment on above:Performed By: #### LCSC SS, GIARDIA, GI PROFILE, STL #### [facility] , #### ENT BACT PANEL, CDT #### [place] [address] USAEntamoeba histolyticaNot detectedNormalNot DetectedThe [facility] Physician GroupComment on above:Performed By: #### LCSC SS, GIARDIA, GI PROFILE, STL #### [facility] , #### ENT BACT PANEL, CDT #### [place] [address] USAEnteroaggregative E coliNot detectedNormalNot DetectedThe [facility] Physician GroupComment on above:Performed By: #### LCSC SS, GIARDIA, GI PROFILE, STL #### [facility] , #### ENT BACT PANEL, CDT #### [place] [address] USAEnteropathogenic E coliNot detectedNormalNot DetectedThe [facility] Physician GroupComment on above:Performed By: #### LCSC SS, GIARDIA, GI PROFILE, STL #### [facility] , #### ENT BACT PANEL, CDT #### [place] [address] USAEnterotoxigenic E coliNot detectedNormalNot DetectedThe Va HospitalComment on above:Performed By: #### LCSC SS, GIARDIA, GI PROFILE, STL #### [facility] , #### ENT BACT PANEL, CDT #### [place] [address] USAGiardia lambliaNot detectedNormalNot DetectedThe [facility] Physician GroupComment on above:Performed By: #### LCSC SS, GIARDIA, GI PROFILE, STL #### [facility] , #### ENT BACT PANEL, CDT #### [place] [address] USANorovirus GI/GIINot detectedNormalNot DetectedThe [facility] Physician GroupComment on above:Performed By: #### LCSC SS, GIARDIA, GI PROFILE, STL #### [facility] , #### ENT BACT PANEL, CDT #### [place] [address] USAPlesiomonas shigelloidesNot detectedNormalNot DetectedThe [facility] Physician GroupComment on above:Performed By: #### LCSC SS, GIARDIA, GI PROFILE, STL #### [facility] , #### ENT BACT PANEL, CDT #### [place] [address] USARotavirus ANot detectedNormalNot DetectedThe Va HospitalComment on above:Performed By: #### LCSC SS, GIARDIA, GI PROFILE, STL #### [facility] , #### ENT BACT PANEL, CDT #### [place] [address] USASalmonellaNot detectedNormalNot DetectedThe Va HospitalComment on above:Performed By: #### LCSC SS, GIARDIA, GI PROFILE, STL #### [facility] , #### ENT BACT PANEL, CDT #### [place] [address] USASapovirusNot detectedNormalNot DetectedThe [facility] Physician [facility] Behavioral HealthComment on above:Result Comment: Performed at: [address] [id number] Sr. Director Product Management: Rasta Schmitz MD, Phone: [phone] PERFORMED BY: [place] [address] PATHOLOGIST TRADE SHOW SPECIALIST ESTEFANIA TRAN M.D.Performed By: #### LCSC SS, GIARDIA, GI PROFILE, STL #### [facility] , #### ENT BACT PANEL, CDT #### [place] [address] HXLUaebn-vcqjz-aqzrgains E coliNot detectedNormalNot Detected The [facility] GroupComment on above:Performed By: #### LCSC SS, GIARDIA, GI PROFILE, STL #### [facility] , #### ENT BACT PANEL, CDT #### [place] [address] USAShigella/Enteroinvasive E coliNot detectedNormalNot DetectedThe [facility] Physician [facility] HealthComment on above:Performed By: #### LCSC SS, GIARDIA, GI PROFILE, STL #### [facility] , #### ENT BACT PANEL, CDT #### [place] [address] USAVibrioNot detectedNormalNot DetectedThe Va HospitalComment on above:Performed By: #### LCSC SS, GIARDIA, GI PROFILE, STL #### [facility] , #### ENT BACT PANEL, CDT #### [place] [address] USAVibrio choleraeNot detectedNormalNot DetectedThe Va HospitalComment on above:Performed By: #### LCSC SS, GIARDIA, GI PROFILE, STL #### [facility] , #### ENT BACT PANEL, CDT #### [place] [address] USAYersinia enterocoliticaNot detectedNormalNot DetectedThe Va HospitalComment on above:Performed By: #### LCSC SS, GIARDIA, GI PROFILE, STL #### [facility] , #### ENT BACT PANEL, CDT #### [place] [address] USAGiardia Lamblia Ag EIA Stoolon [id number] Lamblia Ag EIA StoolNegativeNormalNegativeThe [facility] Physician GroupComment on above: Result Comment: Performed at: [facility] [id number] Sr. Director Product Management: Erick Lujan PhD, Phone: [phone] By: #### LCSC SS, GIARDIA, GI PROFILE, STL #### [facility] , #### ENT BACT PANEL, CDT #### [facility] [address] [place] [address] USAGiardia lamblia Ag [Presence] in Stool by Immunoassay Ordered By: Marco Antonio Llamas on 01-12-2025G. lamblia Ag IA Ql (Stl)Negative NegativeGenesis HospitalComment on above:Performed at: [facility] [id number] Director: Erick Lujan PhD, Phone: [phone] Panel InformationOrdered By: Marco Antonio Llamas on 20-97-8813Qbhwehoqkh Types 40, 41Not detectedNot DetectedGenesis HospitalGiardia lamblia InterpretationNot detectedNot DetectedReg[facility] Medical Center Astrovirus (PCR)Not detectedNot DetectedGlenbeigh Hospitalto Cyclospora cayetanensis (PCR)Not detectedNot DetectedRegional Medical Center Entamoeba (PCR)Not detectedNot DetectedRegional Medical Center Norovirus GI/GII PCRNot detected Not Detected[facility] Rotavirus (PCR)Not detected Not DetectedReg[facility] Medical Center Sapovirus (PCR)Not detected Not DetectedGenesis HospitalComment on above:Performed at: [facility] [employer] [id number] Director: Rasta Schmitz MD, Phone: [phone] and Shigella stool cultureOrdered By: Marco Antonio Llamas on 26-07-3450Owgyugkdtq and Shigella sp identified Org specific cx Nom (Stl)[facility]lenbeigh Hospitalalmonella/Shigella Screenon [id number]/Shigella ScreenFinal report Comment No Salmonella or Shigella recovered. Final report Comment No Campylobacter species isolated. Negative Performed at: [facility] [id number] Sr. Director Product Management: Erick Lujan PhD, Phone: [phone] PERFORMED BY: [facility] [address] [place] [address] PATHOLOGIST TRADE SHOW SPECIALIST ESTEFANIA TRAN M.D.[facility] Physician GroupComment on above: Performed By: #### LCSC SS, GIARDIA, GI PROFILE, STL #### [facility] , #### ENT BACT PANEL, CDT #### [place] [address] USASalmonellosis BD MaxOrdered By: Marco Antonio Llamas on 75-74-6012Pvngrpcpsl sp spaO gene NNEKA+probe Ql (Stl)Salmonella sp spaO gene [Presence] in Stool by NNEKA with probe detectionNegativeGenesis HospitalComment on above:Testing performed by RT-PCRSalmonella sp spaO gene NNEKA+probe Ql (Stl)NegativeNegativeGenesis HospitalComment on above:Testing performed by RT-PCRShigella Tox 1+2 BD MaxOrdered By: Marco Antonio Llamas on 01-12-2025E. coli stx1+stx2 genes NNEKA+probe Ql (Stl)Escherichia coli Stx1 and Stx2 toxin stx1+stx2 genes [Presence] in Stool by NNEKA withNegative Genesis HospitalE. coli stx1+stx2 genes NNEKA+probe Ql (Stl) NegativeNegativeGlenbeigh Hospitalhigella species+EIEC invasion plasmid antigen H ipaH gene [Presence] in Stool by NAAOrdered By: Marco Antonio Llamas on 29-98-6881Dotqjowg species+EIEC invasion plasmid antigen H ipaH gene NNEKA+non-probe Ql (Stl)Not detectedNot DetectedGenesis Hospital Shigellosis BD MaxOrdered By: Marco Antonio Llamas on 61-63-8606Zpewvwxl species+EIEC invasion plasmid antigen H ipaH gene NNEKA+probe Ql (Stl)Shigella species+EIEC invasion plasmid antigen H ipaH gene [Presence] in Stool by NAANegativeGenesis HospitalComment on above:Shigella sp. test includes Shigella species and Enteroinvasive E. coli (EIEC).Shigella species+EIEC invasion plasmid antigen H ipaH gene NNEKA+probe Ql (Stl)NegativeNegativeGenesis HospitalComment on above:Shigella sp. test includes Shigella species and Enteroinvasive E. coli (EIEC).Stool Bacterial Panelon [id number] NegativeNormalNegativeThe [facility] Physician GroupComment on above:Result Comment: Campylobacter test includes C. jejuni and C. coli.Performed By: #### LCSC SS, GIARDIA, GI PROFILE, STL #### [facility] , #### ENT BACT PANEL, CDT #### [place] [address] USASalmonella SpeciesNegativeNormalNegativeThe [facility] Physician GroupComment on above:Result Comment: Testing performed by RT-PCR PERFORMED BY: [place] [address] PATHOLOGIST TRADE SHOW SPECIALIST ESTEFANIA TRAN M.D.Performed By: #### LCSC SS, GIARDIA, GI PROFILE, STL #### [facility] , #### ENT BACT PANEL, CDT #### [place] [address] USAShiga Toxin (E coli O157+oth)NegativeNormalNegativeHca [facility] Physician GroupComment on above:Performed By: #### LCSC SS, GIARDIA, GI PROFILE, STL #### [facility] , #### ENT BACT PANEL, CDT #### [place] [address] USAShigella SpeciesNegativeNormalNegativeThe [facility] Physician GroupComment on above:Result Comment: Shigella sp. test includes Shigella species and Enteroinvasive E. coli (EIEC).Performed By: #### LCSC SS, GIARDIA, GI PROFILE, STL #### [facility] , #### ENT BACT PANEL, CDT #### [place] [address] USAStool Plesiomonas shigelloides DNA detection by non-probe and target amplification meOrdered By: Marco Antonio Llamas on 01-12-2025P. shigelloides DNA NNEKA+non-probe Ql (Stl)Not detectedNot DetectedGlenbeigh Hospitaltool bacteria identification by cultureOrdered By: Marco Antonio Llamas on 52-59-2689Xkkuavco identified Cx Nom (Stl)Stool bacteria identification by cultureGenesis HospitalBacteria identified Cx Nom (Stl)Genesis HospitalVibrio cholerae DNA [Presence] in Stool by NNEKA with non-probe detectionOrdered By: Marco Antonio Llamas on 01-12-2025V. cholerae DNA NNEKA+non-probe Ql (Stl)Not detectedNot DetectedGenesis HospitalYersinia enterocolitica DNA [Presence] in Stool by NNEKA with non- probe detectionOrdered By: Marco Antonio Llamas on 01-12-2025. enterocolitica DNA NNEKA+non-probe Ql (Stl)Not detectedNot DetectedGenesis Hospital CARDIAC IMPLANTABLE DEVICE CHECKon [id number] Tachy Statistic AT/AF [place] Kahihzb2UztvropccParkview Health [facility]ier [facility] CARE SUPPORT REPRESENTATIVE Trigger2.63[facility] StatusOK [facility] Voltage3.03[facility] Setting AT Mode Switch Jdli074FwwygpdztVeterans Health Administrationdy Setting Lower Rate Jpqtc03PngvdchbxVeterans Health Administrationdy Setting Maximum Sensor Ndka673TsloqavlcVeterans Health Administrationdy Setting Maximum Tracking Upxu514KarpjdezvThe [facility] Setting Mode (NBG Code)DDDThe Surgical Hospital at Southwoods Setting PAV Rzkti126LcomhtqcgVeterans Health Administrationdy Setting TARSHA Qarvh542Oglzhypcf Clinic Harris Statistic RA Percent Paced0.91[facility], IncBrady Statistic RV Percent Paced99.39[facility] Hospitalte Time Interrogation [id number] ClinicImplantable Lead LocationRight VentricleSelect Medical Specialty [facility], IncImplantable Lead LocationRight AtriumSelect Medical Specialty Hospital [facility], IncImplantable Lead [id number] SelectSecure MRI SureScanCleveland ClinicImplantable Lead Neidi2838 CapSureFix NovusCleveland ClinicImplantable Lead Serial [id number] ClinicImplantable Lead Serial [id number] ClinicImplantable Pulse Generator Implant Date [id number] ClinicImplantable Pulse Generator ManufacturerMedtronic [facility], IncImplantable Pulse Generator ModelAzure XT DR MRI [id number] Medical Specialty [facility], IncImplantable Pulse Generator Serial [id number] [facility] Implantable Pulse Generator TypePacemakerBoiceville ClinicLead Channel Impedance Aspai175Cxcalqkrb ClinicLead Channel Impedance Mgqyn794Bsgslslkx ClinicLead Channel Sensing Intrinsic Amplitude1.9[facility] ClinicLead Channel Sensing Intrinsic Frevkyepp21.6[facility] ClinicLead Channel Setting Sensing Sensitivity 0.3[facility] ClinicLead Channel Setting Sensing Sensitivity0.9[facility] Rate 1150[facility], IncZone FD4HpbfchuenOhio State Harding Hospital Setting StatusMonitor [facility] Setting Type CategoryVT MonitorBoiceville Garland Melissa MD - 12/11/2024 Normal In-Office: No Events DUAL CHAMBER PPM EVALUATION (RA and LBB leads) * Presents for: OPD with Dr. Lockett * Normal Device Function * Alerts or events: None * Battery: OK, 11.50 yrs to CARE SUPPORT REPRESENTATIVE. * Sensing, impedance and thresholds reviewed and tested today WNL. * Presenting Rhythm: /WEIGHER AND CHARGER * Underlying Rhythm: Sinus Rhythm * Heart Rate Histograms reviewed with appropriate distribution noted. * Pacing and Detection Parameters were evaluated * AP 0.9%, LBB pacing 99.4% Device Reprogrammed Device reprogrammed, changes are listed below: * Increased RA output slightly based on testing today. NOTE TO PROVIDERS: Cardiac Implanted Devices Flowsheets contain detailed Programming and Evaluation data. Full Docket/PDF found below under Scanned Documents . [facility] Orthopedic CenterCNOVon [id number] Visit (CARDMN) KIMBERLY EVERETT ([id number]) 1950 F Date Time Provider Department 12/11/24 5:00 PM GARLAND LOCKETT During your visit today, we recorded the following information about you: Pulse Blood pressure Weight Height 84/minute 149/73 70.1 kg 1.549 m Garland Lockett MD 12/11/2024 5:11 PM Signed [facility] [place] Natalia Cevallos Department of Cardiovascular Medicine SECTION OF CARDIAC PACING and ELECTROPHYSIOLOGY OUTPATIENT VISIT DATE December 11, 2024 OUTPATIENT VISIT TYPE ESTABLISHED PRIMARY CARE PHYSICIAN: Lisa Graham [address] [facility] [place] [address] REFERRING PHYSICIAN: Garland Lockett [address] [facility] [address] CHIEF COMPLAINT: PPM AF HISTORY OF PRESENT ILLNESS/NURSING INTAKE NOTE: Ms. Everett is a 74 year old female who presents today for follow-up visit for device management. She has a PMH of HTN, hypothyroidism and COPD. She had a ppm placed 11/04/2023 for second degree heart block, symptomatic bradycardia and intermittent LBBB. Her device check showed atrial fibrillation in December of 2023 (longest 8 hours) and she was started on eliquis. She had two appointments with Dr. Tapia that were cancelled by his office. She has found a local provider. She denies chest pain, cough, palpitations, lightheadedness or syncope. She needs a refill for eliquis and she still has some pain at the surgical site. She will be having an MRI of her knee and would like to know if she an have it with her device. She would also like to know if there are any alternatives to tylenol for pain. CHADS VASC: 5 (HTN, age, female, CAD, CHF) PAST MEDICAL HISTORY Diagnosis Date KANU (acute kidney injury) 12/19/2015 Breech delivery ([facility]) 1975 Required 2 unit transfusion post op Chronic diastolic congestive heart failure (HCC) 11/03/2023 Chronic fatigue CMV (cytomegalovirus infection) (HCC) COPD (chronic obstructive pulmonary disease) ([facility]) 12/04/2013 High degree atrioventricular block 11/03/2023 Hypertension 12/04/2013 Hypothyroid Mononucleosis KATELYN (obstructive sleep apnea) 11/03/2023 Preop cardiovascular exam 12/04/2013 Syrinx of spinal cord (HCC) 2005 C6 through T1. Vertebral hemangioma T5 Vaginal prolapse Ventral hernia 12/04/2013 PAST SURGICAL HISTORY Procedure Laterality Date F TOTAL ABDOMINAL HYSTERECTOMY OOPHORECTOMY, PART/TOTAL UNILAT/BILAT PAST SURGICAL HISTORY OF 02/06/2009 Exp. laparotomy, resection TI and right colon for volvulus PAST SURGICAL HISTORY OF 02/07/2008 left breast biopsy - benign FCD PAST SURGICAL HISTORY OF 08/09/1972 Umbilical hernia repair PAST SURGICAL HISTORY OF 08/09/2009 Repair incisional hernia mesh PAST SURGICAL HISTORY OF 08/09/2011 repair recurrent incisional hernia mesh PAST SURGICAL HISTORY OF 08/09/2012 cholecystectomy PPM IMPLANT 11/04/2023 SOCIAL HISTORY Social History Tobacco Use Smoking status: Former Current packs/day: 0.00 Average packs/day: 1 pack/day for 18.0 years (18.0 ttl pk-yrs) Types: Cigarettes Start date: 08/09/1982 Quit date: 08/09/2000 Years since quittin.3 Smokeless tobacco: Never Vaping Use Vaping status: Never Used Substance Use Topics Alcohol use: No Drug use: No FAMILY HISTORY Problem Relation Age of Onset Diabetes Maternal Grandfather Hypertension Father Hypertension Mother Stroke Maternal Grandmother Cancer Mother breast Cancer Paternal Grandmother colon, stomach Cancer Maternal Grandfather bone ALLERGIES: ALLERGIES Allergen Reactions Amoxicillin Rash If already mixed with a mediction I react from the mixture Pt. states Augmentin [Amoxicil* Rash Azithromycin Hives Bacitracin Rash Chlorhexidine Rash Clindamycin Hives Flagyl [Metronidazo* Rash, Itching Mobic [Meloxicam] Rash, Itching Montelukast Rash Neosporin [Neomycin* Rash Sulfa (Sulfonamide * Rash, Hives MEDICATIONS: oxyCODONE-acetaminophen (PERCOCET) 5-325 mg tablet Take 1 tablet by mouth every 8 hours as needed for pain. Takes one half tab at night apixaban (ELIQUIS) 5 mg tab(s) Take 1 tablet by mouth two times a day. acetaminophen (TYLENOL) 500 mg tablet Take 2 tablets by mouth every 6 hours as needed for pain. aspirin, enteric coated (ASPIRIN, ENTERIC COATED) 81 mg EC tablet Take 81 mg by mouth once daily. cyanocobalamin (VITAMIN B-12) 1,000 mcg tab Take 1,000 mcg by mouth once daily. calcium carbonate (CALCIUM 600) 600 mg calcium (1,500 mg) tab Take 600 mg by mouth once daily. amLODIPine (NORVASC) 5 mg tablet Take 5 mg by mouth once daily. ALBUTEROL SULFATE (PROAIR HFA INHALATION) Inhale as instructed every 4 hours as needed. Biotin 10,000 mcg cap Take 10,000 mcg by mouth once daily. ascorbic acid, vitamin C, (VITAMIN C) 500 mg tablet Take 500 mg by mouth once daily. cyc (more content not included)...NormalPremier Health Miami Valley Hospital NorthECG COMPLETEon 33-84-1707YZK COMPLETEVentricular Rate : 84 BPM Atrial Rate : 84 BPM P-R Interval : 194 ms QRS Duration : 84 ms Q-T Interval : 366 ms QTC Calculation(Bazett) : 432 ms Calculated P Thornton : 34 degrees Calculated R Thornton : -29 degrees Calculated T Thornton : 119 degrees ATRIAL-SENSED VENTRICULAR-PACED RHYTHM ABNORMAL ECG Confirmed by TEA ALFARO M.D. ([id number]) on 01/04/2025 4:34:47 PM NAME : KIMBERLY EVERETT PID : [id number] : 1950 Gender : Female Race : ORD : [id number] Procedure Date : Dec 11 2024 14:51:08 Edit Date : Jan 04 2025 16:37:58 Diagnosis: ATRIAL-SENSED VENTRICULAR-PACED RHYTHM ABNORMAL ECG Confirmed by TEA ALFARO M.D. ([id number]) on 01/04/2025 4:34:47 PM Test Reason : Location : 314 : 14 J14 Overread By : TEA ALFARO M.D. Edited By : TEA ALFARO M.D. Referred By : GARLAND LOCKETT Acquired by : MARIYA COMER [facility] Panel Informationon [id number] Lead Connection StatusConnectedSelect Medical Specialty Hospital [facility], IncImplantable Lead Implant [id number] ClinicImplantable Lead ManufacturerMedtronicBoiceville ClinicLead Channel Measurements Date and Time 6244-00-89Ndwmoeqvy ClinicLead Channel Pacing Threshold Vibayfehy2Ilhwgujqz ClinicLead Channel Pacing Threshold Pulse Width0.4Cleveland ClinicLead Channel Setting Pacing Unvigxgkr9Oewfzdjxi ClinicLead Channel Setting Pacing Pulse Width 0.4Cleveland ClinicNo Panel Informationon [id number] Cavazos 12/08/2024 1:44 PM Cast / Splint / Fx Date/Time: 12/08/2024 10:43 AM Performed by: LUIS Cavazos Authorized by: LUIS Cavazos Consent given by: patient Timeout: Immediately prior to procedure a time out was called to verify the correct patient, procedure, equipment, endoscopy support specialist and site/side marked as required Injury Location details: left knee Pre-procedure assessment neurovascularly intact Range of motion: reduced Procedure Manipulation performed? no manipulation performed Immobilization: brace Post-procedure assessment neurovascularly intact Patient tolerance: patient tolerated the procedure well with no immediate complications Comments A left L1821 off the shelf, prefabricated, knee orthosis with condylar pads and joints with or without patellar control was dispensed, fitted, and adjusted at this visit. The function of the device is to provide support, decrease edema, control motion at the knee joint. It will redistribute pressure and allow more comfortable weight-bearing and better support. It is for increased stability of the knee joint. The goals of the device are to decrease pain decrease inflammation, increase stability and to allow the patient to ambulate independently. The device is medically necessary for the condition, symptoms and diagnosis. It was dispensed and fitted for the patient, and it fit properly. The patient was educated as to proper use and care, and this was reviewed in detail. Written instructions and warranty information were given with the device. A receipt for the device is on file. The current supplier standards were given to the patient. MotionVT patient agreement was completed at time of dispensement.. The patient stated that the device was comfortable when fitted in the office and the patient was able to ambulate without distress with this knee orthosis. At the time of dispensement, the device was suitable and not substandard.Count includes the [facility] Children's HospitalXR Knee - left 1 or 2 Viewson [id number] Result: AP and Lateral left knee No acute fracture or dislocation Mild narrowing medial and lateral joint lines with slight flattening of articular surface + osteopenia, with advanced patella- femoral degenerative changes. Impression: no acute bony process left knee with mild arthritis.[facility]boroRadiology Study observation (narrative)[facility] ECG *CARDIOLOGY ONLY*on [id number] ECG *CARDIOLOGY ONLY*[facility] Main [address] [address] Electrocardiograph Report Signed Patient: Kimberly Everett MR#: [id number] 529 : 1950 Acct:[id number] Age/Sex: 73 / F ADM Date: 10/12/24 Loc: EKGCARDIO Room: Type: [facility] Attending Dr: Emmanuelle Tipton MD Ordering Provider: Emmanuelle Tipton MD Date of Service: 10/12/2402/01/1332 ECG/FPG ECG *CARDIOLOGY ONLY*: I50.32 - Chronic diastolic (congestive) heart failure Copies to: Test Reason : Blood Pressure : */* mmHG Vent. Rate : 87 BPM Atrial Rate : 87 BPM P-R Int : 168 ms QRS Dur : 116 ms QT Int : 374 ms P-R-T Axes : 29 -20 -19 degrees QTcB Int : 450 ms Atrial-sensed ventricular-paced rhythm Abnormal ECG Confirmed by Emmanuelle Tipton ([id number]) on 10/12/2024 3:53:40 PM Referred By: Electronically Signed By: Emmanuelle Tipton Transcribed By: MUS Signed By Emmanuelle Tipton MD 5 [facility] Physician GroupCNPNon [id number] (CARCMN) KIMBERLY EVERETT ([id number]) 1950 F Date Time Provider Department 08/07/24 AUDI TAPIA CARCMN During your visit today, we recorded the following information about you: Patt Dsouza 08/07/2024 10:50 AM Signed Admin called pt to let her know 09/[address] Tapia has to be rescheduled as Dr. Tapia will be out the office. Let pt know next available is 01/22 at 2:30. Pt understood and appt was rescheduled. Patt Sarah August 07, 2024 10:50 AM Allergies As of Date: 08/07/2024 Noted Allergy Reaction AMOXICILLIN 10/16/2013 2 - [...] Itching MONTELUKAST 11/03/2023 2 - Rash NEOSPORIN (TDWGKOVE-ASEEAKYQPA-ZK*10/16/2013 2 - Rash SULFA (SULFONAMIDE ANTIBIOTICS) 10/16/2013 2 - Rash 4 - Hives Date Reviewed: 11/04/2023 Reviewed by: Abrahan Stern RN - Fully Assessed Reason for Visit: Appointment [[id number]] Prescriptions as of 08/07/2024 - apixaban (ELIQUIS) 5 mg tab(s) Take [...] 60 mg by mouth once daily. - ufjvjbkevpt-lvakpwrkx-fhmfxfgc (TRELEGY ELLIPTA) 200-62.5-25 mcg inhalation powder Inhale [...] g by mouth once daily. - Ipratropium [place] (ATROVENT) 21 mcg (0.03 %) nasal spray [...] by this patient by: PATIENT Foster Gutierrez [facility] Problem List As Of Date 08/07/2024 Noted Resolved Hypertension [I10] 12/04/2013 COPD (chronic [...] congestive heart failure (HCC*11/03/2023 Encounter Status:Closed by PATT DSOUZA on 08/07/24[facility] HospitalInfluenza A virus antibody titer by complement fixationon 08-07-2024 FLUAV Ab CF (S) [Titer]Influenza A virus antibody titer by complement fixation [facility] HospitalInfluenza virus B Ab [Titer] in Serum by Complement fixationon 56-93-0700JHYDN Ab CF (S) [Titer]Influenza virus B Ab [Titer] in Serum by Complement fixationGenesis Hospital Respiratory specimen 2019 novel coronavirus RNA detection by probe and target amplifion 12-75-4207WFAW-CoV-2 (COVID-19) RNA NNEKA+probe Ql (Resp)Respiratory specimen 2019 novel coronavirus RNA detection by probe and target amplifi Genesis HospitalXR Knee - left 1 or 2 Viewson 65-68-9705Rdpyeqp Result: X-rays AP and lateral of left knee show mild degenerative changes with mild flattening of the articular surfaces to the medial joint line with decreased joint space height to the medial joint line. Lateral joint line appeared to be well preserved there was subchondral sclerosis noted at the medial joint line and patellofemoral joint. There is no evidence of fracture or dislocation. Bony structures visualized appeared to be adequately ossified. [facility] HealthcareRadiology Study observation (narrative)[facility] ChildrenCNPNon [id number] (CARDMN) KARLOSKIMBERLY ([id number]) 1950 F Date Time Provider Department 06/27/24 GARLAND LOCKETT During your visit today, we recorded the following information about you: Ana Ortiz 06/27/2024 1:35 PM Signed June 27, 2024 Patient Contact No. [phone] Patient last seen: Visit date not found Patient has enough Eliquis for three days and would like a refill called in ([place], [place]). She also wants to know if [...] Itching MONTELUKAST 11/03/2023 2 - Rash NEOSPORIN (AUBWYBEM-PZWVUDDOEL-ZK*10/16/2013 2 - Rash SULFA (SULFONAMIDE ANTIBIOTICS) 10/16/2013 2 - Rash 4 - Hives Date Reviewed: 11/04/2023 Reviewed by: Abrahan Stern, GARETH - Fully Assessed Reason for Visit: Patient [...] 60 mg by mouth once daily. - cqydweofaaj-nqkrtdcdc-sksvwpgn (TRELEGY ELLIPTA) 200-62.5-25 mcg inhalation powder Inhale [...] g by mouth once daily. - Ipratropium [place] (ATROVENT) 21 mcg (0.03 %) nasal spray [...] by this patient by: PATIENT Foster Gutierrez, [facility] Problem List As Of Date 06/27/2024 Noted [...] 01/13/2016 High degree atrioventricular block [I44.39] 11/03/2023 KATELNY (obstructive sleep apnea) [G47.33] 11/03/2023 Mild coronary artery disease [I25.10] 11/03/2023 Sy (more content not included)...NormalPremier Health Miami Valley Hospital NorthUS RETROPERITONEAL COMPLETEon 36-62-7477AR RETROPERITONEAL COMPLETEUS RETROPERITONEAL COMPLETE History: Urinary tract infection without hematuria. Follow up with history of angiomyolipoma Exam/Technique: Ultrasound of the kidneys and urinary bladder Comparison: Some from 04/13/2023 and contrast-enhanced CT of the abdomen and pelvis from 01/28/2022 Findings: There is no collecting system dilatation in either kidney. The typical angiomyolipoma in the lower pole the left kidney is redemonstrated, and unchanged in size at 1.3 cm in maximum dimension. No significant abnormalities are displayed in the left kidney with only subcentimeter simple andbenign- appearing cysts displayed that need no further imaging follow-up The right kidney measures 9.4 centimeters in length , and the left kidney 9.4 centimeters . The full urinary bladder measures 264 ml, and displays no gross focal abnormalities. Bilateral ureteral jets are demonstrated. Post void bladder volume is measured at 39 mL IMPRESSION: Normal ultrasound of the kidneys and urinary bladder. Mild post void retention of urine in the bladder. Finalized by Rober Hernandez MD on 05/05/2024 4:52 PMNormalGalion HospitalHbA1c HPLC (Bld) [Mass fraction]on 58-70-9876JyG1n (Bld) [Mass fraction] 5.5 %Genesis HospitalPOCT Urinalysis Auto, W/O Microscopyon 99-10-6694Tijudoix Poct Urine BilirubinNegativeC[facility] Clinic [facility] Health SystemExternal Poct Urine BloodNegativeMetroHealth Parma Medical Center SystemExternal Poct Urine Glucose3+ ProMMadelia Community Hospital SystemExternal Poct Urine KetonesNegativeMetroHealth Parma Medical Center SystemExternal Poct Urine Leukocyte EsteraseNegativeMetroHealth Parma [facility] Center System External Poct Urine NitriteNegativeMetroHealth Parma [facility] Center SystemExternal Poct Urine Ph 6.0[facility] SystemExternal Poct Urine ProteinNegativeMet[facility]Health [facility] SystemExternal Poct Urine Specific Gravity1.020[facility] SystemExternal Poct Urine Urobilinogen0.2PUnitypoint Health Meriter Hospital SystemNo Panel Informationon 81-65-5457NRGOZ_Mlrnftwpj ClinicImplant Date4Cleveland ClinicPACEABRAZO [facility] CLIN[facility] CHECKon 93-93-9403DQ Delay Adaptive Paced Minimum (ms)180 msCleveland ClinicAV Delay Adaptive Sensed Minimum (ms)150 msCleveland ClinicAV Delay Adaptive StatusDISABLEDCleveland ClinicBattery Voltage (volts)3.18 V [facility] RA Pacing Amplitude (volts)2 VCleveland ClinicBrady RA Pacing PolarityBIThe Surgical Hospital at Southwoods RA Pacing Pulse Width (ms)0.4 msCleveland ClinicBrady RA Sensing Amplitude (mvolts)0.3 mVCleveland Essentia HealthBrady RA Sensing Blanking Period (ms)150 msCleveland ClinicBrady RA Sensing PolarityBISelect Medical Specialty Hospital [facility], IncBrady RA Sensing Refractory Period (ms)AutoCleveland ClinicBrady RV Pacing Amplitude (volts)2.5 VCleveland ClinicBrady RV Pacing PolarityBISelect Medical Specialty Hospital [facility], Inc Harris RV Pacing Pulse Width (ms)0.4 msCleveland ClinicBrady RV Sensing Amplitude (mvolts)0.9 mVCleveland ClinicBrady RV Sensing Blanking Period (ms)200 ms [facility], IncBrady RV Sensing PolarityTrumbull Memorial HospitalHysteresis Rate (bpm) DISABLEDSelect Medical Specialty [facility], IncLead1 MfgMDTSelect Medical Specialty Hospital [facility], IncLead2 MfgMDTSelect Medical Specialty [facility], Inc LocationUnknownCleveland Essentia HealthLocationRASelect Medical Specialty [facility], IncLower Rate (bpm)60 {beats}/minSelect Medical Specialty Hospital - [facility], IncMax Sensor Rate (bmp)130 {beats}/minSelect Medical Specialty Hospital [facility], Inc AissgN0HF29 Hargill XT [facility] HospitalModel3830 SelectSecure MRI SureScan [facility], IncModel5076 CapSureFix NovusCleveland ClinicPacemaker Dependent?NO [facility], IncPacing ModeDDDCohiohealth mansfield hospitaland [facility]-Device [facility] PM-Percent Pacing (A)1.85 %[facility], IncPM-Percent Pacing (V)97.09 %[facility]-PMT InterventionENABLEDCleveland St. [facility]-PVC InterventionENABLED [facility]-Rate Modulation Acceleration Yuvvhikd48 sClOhioHealth Mansfield Hospital- Rate Modulation ADL Rate (bpm)95 {beats}/minLouis Stokes [facility]-Rate Modulation DecelerationExerciseLouis Stokes [facility]-Rate Modulation Jmowy5Lebgzrayn Essentia HealthPM- Rate Modulation ThresholdLowSelect Medical Specialty Hospital [facility], IncRA Bipolar Impedance mjsa564jio [facility], IncRA Unipolar Impedance tpeo992rbhDjjdyaobm ClinicRhythmNormal Sinus RhythmSelect Medical Specialty Hospital - [facility], IncRV Bipolar Impedance swhj806ttmKwxwodnfp Essentia HealthRV Unipolar Lfgznaxed675esqEjdtmdxbc ClinicSerial PqzjntYAA611068LOefviuzwk Clinic Serial PhdmaqBDZ419615NImrjiwame ClinicSerial OthwsiSTQMQI012RGwtqceekz Clinic Thresh RA Capture Amplitude (volts)0.875 VCleveland ClinicThresh RA Capture Duration (ms)0.4 msCleveland ClinicThresh RA Sensing Amplitude (mvolts)1.875 mV [facility] RV Capture Amplitude (volts)0.875 VCleveland Essentia HealthThrputnam county memorial hospital RV Capture Duration (ms)0.4 msCOhioHealth Hardin Memorial Hospitalesh RV Sensing Amplitude (mvolts)17 mVCleveland ClinicTracking Rate (bpm)130 {beats}/minSelect Medical Specialty Hospital [facility], Inc 12/16/2023 DUAL LEAD PACEMAKER EVALUATION PRESENTS FOR: 4-6 week check PRESENTING EGM: /WEIGHER AND CHARGER UNDERLYING RHYTHM: SR BATTERY STATUS: Estimated time remaining to HCANCE is 11.3 yrs. COUNTERS SINCE: 11/04/22 ATRIAL [...] are pain-free (0/10), well healed and without signsof erosion or infection. No arm swelling, syncope, pre- syncope or device related pocket stimulation. OTHER DIAGNOSTICS: [...] CARDIAC DATA AND REPORT, Scanned Documents section. [facility] Orthopedic CenterBasophils Auto (Bld) [#/Vol]Ordered By: Abdulaziz Blackwell on 24-79-6649Mzpofgtqd (Bld) [#/Vol]0.0 10*3/uL0.0-0.2FSelect Medical Specialty Hospital - Board[facility], IncBasophils/100 WBC Auto (Bld)Ordered By: Abdulaziz Blackwell on 11-02-2023 Basophils/100 WBC (Bld)0.6 %.Genesis HospitalCalcium [Mass/volume] in Serum or PlasmaOrdered By: Abdulaziz Blackwell on 54-62-8801Cjsexgh [Mass/Vol]9.3 mg/dL8.6-10.3FSelect Medical Specialty Hospital - Board[facility], IncCarbon dioxide, total [Moles/volume] in Serum or PlasmaOrdered By: Abdulaziz Blackwell on 82-31-1658MJ4 [Moles/Vol]24.1 mmol/L21.0-31.0Genesis HospitalChloride [Moles/volume] in Serum or PlasmaOrdered By: Abdulaziz Blackwell on 52-63-7469Tdlplrzx [Moles/Vol]111 mmol/S19-876TtcklkvhbGenesis HospitalCholesterol [Mass/volume] in Serum or PlasmaOrdered By: Abdulaziz Blackwell on 69-62-8125Iqhpikctfho [Mass/Vol]126 mg/bM909-284SugnxqoumGenesis HospitalComment on above: Chol less than 200 mg/dl low riskChol 201-239 mg/dl borderline riskChol 240 mg/dl and greater high riskCholesterol in LDL Calc [Mass/Vol]Ordered By: Abdulaziz Blackwell on 51-60-3931Ynwipbowdrj in LDL [Mass/Vol]51 mg/dL0-100Genesis HospitalComment on above:LDL ATP III CLASSIFICATIONLDL less than 100 mg/dL OptimalLDL 100-129 mg/dL Near or above wcamnooHFT945-393 mg/dL Borderline highLDL 160-189 mg/dL HighLDL greater than 189 mg/dL Very highCholesterol in VLDL Calc [Mass/Vol]Ordered By: Abdulaziz Blackwell on 80-71-0778Xoxrbungdnm in VLDL [Mass/Vol]32 mg/dLGenesis HospitalCreatinine [Mass/volume] in Serum or PlasmaOrdered By: Abdulaziz Blackwell on 29-90-7591Bqtylpuiuh [Mass/Vol]0.86 mg/dL0.60-1.20Genesis HospitalEosinophils Auto (Bld) [#/Vol] Ordered By: Abdulaziz Blackwell on 39-25-2380Ddnfkmkgasn (Bld) [#/Vol]0.1 10*3/uL 0.0-0.45Genesis HospitalEosinophils/100 WBC Auto (Bld)Ordered By: Abdulaziz Blackwell on 75-78-2856Uavthuvrzfp/100 WBC (Bld)1.5 %.Genesis HospitalErythrocyte distribution width Auto (RBC) [Ratio]Ordered By: Abdulaziz Blackwell on 90-26-7635Hnigqpwadog distribution width (RBC) [Ratio]13.7 %11.9-15.3 Genesis HospitalGlucose [Mass/volume] in Serum or PlasmaOrdered By: Abdulaziz Blackwell on 86-54-2641Ggpluha [Mass/Vol]114 mg/lJ35-885MunqbhnbpGenesis HospitalComment on above:ADA recommended reference rangeRandom Glucose Reference Range is dependent on time and content of last meal. Glucose of more than 200 mg/dL in a nonstressed, ambulatory subject supports the diagnosisof Diabetes Mellitus.Glucose mean value [Mass/volume] in Blood Estimated from glycated hemoglobinOrdered By: Abdulaziz Blackwell on 31-76-8546Ntdsxhh glucose Estimated from glycated hemoglobin (Bld) [Mass/Vol]105 mg/dLGenesis HospitalHematocrit Auto (Bld) [Volume fraction]Ordered By: Abdulaziz Blackwell on 46-73-1426Zzpjzuxjhh (Bld) [Volume fraction]36.8 %34.0-46.4FSelect Medical Specialty Hospital - Board[facility], IncHemoglobin A1c percentageOrdered By: Abdulaziz Blackwell on 85-33-0437RiB6u (Bld) [Mass fraction]5.3 %4.3-5.6FSelect Medical Specialty Hospital - Boardman, IncComment on above:Increased risk for diabetes: 5.7 - 6.4diabetes: >6.4glycemic control for adults with diabetes: <7.0Hemoglobin [Mass/volume] in BloodOrdered By: Abdulaziz Blackwell on 95-70-5609Yfuipfkaci (Bld) [Mass/Vol]12.2 g/dL11.8-15.4FSelect Medical Specialty Hospital - Board[facility], IncLeukocytes [#/volume] corrected for nucleated erythrocytes in Blood by Automated counOrdered By: Abdulaziz Blackwell on 22-79-2178SSA corrected for nucl RBC Auto (Bld) [#/Vol]8.6 10*3/uL3.8-11.6 Genesis HospitalLymphocytes Auto (Bld) [#/Vol]Ordered By: Abdulaziz Blackwell on 94-69-8732Ynsikulhkbj (Bld) [#/Vol]1.9 10*3/uL1.00-4.8Genesis HospitalLymphocytes/100 WBC Auto (Bld)Ordered By: Abdulaziz Blackwell on 35-90-6016Guejrwxlpzk/100 WBC (Bld)21.7 %.[facility] HospitalH Auto (RBC) [Entitic mass]Ordered By: Abdulaziz Blackwell on 53-74-1753GHX (RBC) [Entitic mass]30.6 pg24.7-34.3FSelect Medical Specialty Hospital - Board[facility], IncMCHC Auto (RBC) [Mass/Vol]Ordered By: Abdulaziz Blackwell on 05-62-3508KPMT (RBC) [Mass/Vol]33.2 g/dL 32.0-35.0Genesis HospitalMCV Auto (RBC) [Entitic vol]Ordered By: Abdulaziz Blackwell on 50-21-1471JAR (RBC) [Entitic vol]92.3 kX06-075ZirkjgrikGenesis HospitalMagnesium [Mass/volume] in Serum or PlasmaOrdered By: Abdulaziz Blackwell on 49-52-3814Hgrjhybfu [Mass/Vol]2.0 mg/dL1.9-2.7FSelect Medical Specialty Hospital - Board[facility], IncMonocytes Auto (Bld) [#/Vol]Ordered By: Abdulaziz Blackwell on 11-02-2023 Monocytes (Bld) [#/Vol]0.6 10*3/uL0.0-0.8[facility] Monocytes/100 WBC Auto (Bld)Ordered By: Abdulaziz Blackwell on 27-30-3349Tjpfcqedv/100 WBC (Bld)7.5 %.Genesis HospitalNeutrophils Auto (Bld) [#/Vol] Ordered By: Abdulaziz Blackwell on 86-14-6129Prmcvrvjdfg (Bld) [#/Vol]5.9 10*3/uL1.8-7.7 Genesis HospitalNeutrophils/100 WBC Auto (Bld)Ordered By: Abdulaziz Blackwell on 46-76-6116Afrvczlbsci/100 WBC (Bld)68.7 %.Genesis HospitalNo Panel InformationOrdered By: Abdulaziz Blackwell on 71-91-6315Etdyfnhbp GFR (CKD-EPI)> 60.0 mL/MinGenesis HospitalPharmacy Creatinine Clearance (Chem53.72Genesis HospitalNucleated erythrocytes [Presence] in Blood by Automated countOrdered By: Abdulaziz Blackwell on 11-02-2023 Nucleated RBC Auto Ql (Bld)0.1 /100{WBC}0-0.5FSelect Medical Specialty Hospital - Board[facility], Inc Platelet mean volume Auto (Bld) [Entitic vol]Ordered By: Abdulaziz Blackwell on 10-66-7092Qhxsjbcw mean volume (Bld) [Entitic vol]8.9 fL6.3-10.7FSelect Medical Specialty Hospital - Boardman, IncPlatelets Auto (Bld) [#/Vol]Ordered By: Abdulaziz Blackwell on 07-41-3612Vieigtivz (Bld) [#/Vol]271 10*3/mJ262-950MoypralvmGenesis HospitalPotassium [Moles/volume] in Serum or PlasmaOrdered By: Abdulaziz Blackwell on 25-48-0146Rqhledxnu [Moles/Vol]3.9 mmol/L3.5-5.1FSelect Medical Specialty Hospital - Board[facility], IncRBC Auto (Bld) [#/Vol]Ordered By: Abdulaziz Blackwell on 15-58-8989IFH (Bld) [#/Vol]3.99 10*6/uL3.60-5.00Glenbeigh Hospitalerum or plasma anion gap determinationOrdered By: Abdulaziz Blackwell on 76-62-1144Psyjh gap [Moles/Vol]10.8 mmol/L6.0-15.0Glenbeigh Hospitalerum or plasma high density lipoprotein (HDL) cholesterol measurementOrdered By: Abdulaziz Blackwell on 73-75-9429Onfvnryyome in HDL [Mass/Vol]43 mg/zY34-95BppodncdbGenesis HospitalComment on above:HDL CHOL ATP-III CLASSIFICATION Cardiovascular RiskHDL > or equal to 60 mg/dL LOWHDL < 40 mg/dL HIGHSerum or plasma total cholesterol/high density lipoprotein (HDL) cholesterol mass ratOrdered By: Abdulaziz Blackwell on 22-18-4702Kruzvbrmkkc.total/Cholesterol in HDL [Mass ratio]2.9 {ratio} <5.0Glenbeigh Hospitalodium [Moles/volume] in Serum or Plasma Ordered By: Abdulaziz Blackwell on 97-43-8019Lfnhpo [Moles/Vol]142 mmol/T476-556 Genesis HospitalTriglyceride [Mass/volume] in Serum or Plasma Ordered By: Abdulaziz Blackwell on 67-10-9392Cuggmzbtzshl [Mass/Vol]162 mg/dL0-149 Genesis HospitalComment on above:TRIG ATP III CLASSIFICATIONTRIG less than 150 mg/dL NormalTRIG 150-199 mg/dL Borderline highTRIG 200-500 mg/dL High TRIG greater than 500 mg/dL Very highStandard traceable to the Center for Disease Conrtrol and Prevention (CDC) test method. Urea nitrogen [Mass/volume] in Serum or PlasmaOrdered By: Abdulaziz Blackwell on 21-19-1899Dwoe nitrogen [Mass/Vol]31 mg/dL03-02[facility] WBC Auto (Bld) [#/Vol]Ordered By: Abdulaziz Blackwell on 34-95-7977YHL (Bld) [#/Vol]8.6 10*3/uL3.8-11.6FSelect Medical Specialty Hospital - [facility], IncActivated partial thromboplastin time (aPTT) in platelet poor plasma by coagulation aOrdered By: Lambert Abraham on 62-57-3567hHCN Coag (PPP) [Time]32.6 s25.1-36.5FSelect Medical Specialty Hospital - [facility], Inc Comment on above:A hematocrit value greater than 55% may lead to inaccurate results in coagulation testing. Patientshaving hematocrit values >55% require a special collection tube for coagulation studies. Please contact the laboratory at [phone] for redraw instructions.Alanine aminotransferase [Enzymatic activity/volume] in Serum or PlasmaOrdered By: Lambert Abraham on 39-14-9800NGX [Catalytic activity/Vol]13 U/L7Genesis HospitalAlbumin [Mass/volume] in Serum or Plasma by Bromocresol green (BCG) dye binding metho Ordered By: Lambert Abraham on 23-25-9785Lkmnxlu BCG dye [Mass/Vol]4.7 g/dL3.5-5.7 Genesis HospitalAlkaline phosphatase [Enzymatic activity/volume] in Serum or PlasmaOrdered By: Lambert Abraham on 48-16-2103RGR [Catalytic activity/Vol]57 U/N00-241HxkfxxsjjGenesis HospitalAspartate aminotransferase [Enzymatic activity/volume] in Serum or PlasmaOrdered By: Lambert Abraham on 78-53-9383YLU [Catalytic activity/Vol]16 U/X56-79BdkeqeoniGenesis HospitalBasophils Auto (Bld) [#/Vol]Ordered By: Lambert Abraham on 11-01-2023 Basophils (Bld) [#/Vol]0.1 10*3/uL0.0-0.2FSelect Medical Specialty Hospital - [facility], Inc Basophils/100 WBC Auto (Bld)Ordered By: Lambert Abraham on 53-69-8415Sgozwkexa/100 WBC (Bld)0.9 %.Genesis HospitalBilirubin.direct [Mass/volume] in Serum or PlasmaOrdered By: Lambert Abraham on 66-54-4660Ouvhrrrcm.direct [Mass/Vol]0.10 mg/dL0.03-0.18FSelect Medical Specialty Hospital - Board[facility], IncBilirubin.total [Mass/volume] in Serum or PlasmaOrdered By: Lambert Abraham 41-16-5826Gmvhzaofc [Mass/Vol]0.4 mg/dL0.3-1.0Genesis HospitalCalcium [Mass/volume] in Serum or PlasmaOrdered By: Lambert Abraham 67-27-9075Kkvzjcr [Mass/Vol]9.6 mg/dL8.6-10.3FSelect Medical Specialty Hospital - Board[facility], IncCarbon dioxide, total [Moles/volume] in Serum or PlasmaOrdered By: Lambert Abraham on 25-69-6104IZ1 [Moles/Vol]20.3 mmol/L21.0-31.0Genesis HospitalChloride [Moles/volume] in Serum or PlasmaOrdered By: Lambert Abraham on 75-03-6374Ojrcxrfv [Moles/Vol]109 mmol/R09-338InnhfqhloGenesis HospitalCreatine kinase [Enzymatic activity/volume] in Serum or PlasmaOrdered By: Lambert Abraham on 30-63-5707JV [Catalytic activity/Vol]83 U/N20-575JuuqlfvoyGenesis HospitalCreatinine [Mass/volume] in Serum or PlasmaOrdered By: Lambert Abraham on 43-34-6091Phfblmmuik [Mass/Vol]1.25 mg/dL0.60-1.20Genesis HospitalEosinophils Auto (Bld) [#/Vol]Ordered By: Lambert Abraham on 11-01-2023 Eosinophils (Bld) [#/Vol]0.1 10*3/uL0.0-0.45[facility] Eosinophils/100 WBC Auto (Bld)Ordered By: Lambert Abraham on 11-01-2023 Eosinophils/100 WBC (Bld)1.4 %.Genesis HospitalErythrocyte distribution width Auto (RBC) [Ratio]Ordered By: Lambert Abraham on 11-01-2023 Erythrocyte distribution width (RBC) [Ratio]13.8 %11.9-15.3FSelect Medical Specialty Hospital - Boardman, IncGlobulin Calc (S) [Mass/Vol]Ordered By: Lambert Abraham on 11-01-2023 Globulin (S) [Mass/Vol]2.2 g/dLGenesis HospitalGlucose [Mass/volume] in Serum or PlasmaOrdered By: Lambert Abraham on 39-13-1114Wxatscg [Mass/Vol]104 mg/jJ81-670SkhklvufsGenesis HospitalComment on above:ADA recommended reference rangeRandom Glucose Reference Range is dependent on time and content of last meal. Glucose of more than 200 mg/dL in a nonstressed, ambulatory subject supports the diagnosisof Diabetes Mellitus.Hematocrit Auto (Bld) [Volume fraction]Ordered By: Lambert Abraham on 45-27-9107Tldetylqro (Bld) [Volume fraction]37.8 %34.0-46.4FSelect Medical Specialty Hospital - Board[facility], IncHemoglobin [Mass/volume] in BloodOrdered By: Lambert Abraham on 97-69-9384Qrkkyxpyfe (Bld) [Mass/Vol]12.6 g/dL11.8-15.4FSelect Medical Specialty Hospital - Board[facility], IncINR in Platelet poor plasma by Coagulation assayOrdered By: Lambert Abraham on 18-87-0942VVX Coag (PPP) [Relative time]1.0 {INR}Genesis HospitalComment on above: INR Therapeutic Range A) Pre- and Peroperative OAT started two weeks before surgery. NOT HIP SURGERY: 1.5 - 2.5 HIP SURGERY: 2 - 3B) Primary and secondary prevention of venous THROMBOSIS: 2 - 3C) Active venous thrombosis, pulmonary embolismand prevention of recurrent venous thrombosis: 2 - 3D) Prevention of arterial thromboembolismincluding patients with mechanical heart valves: 3 - 4.5 Leukocytes [#/volume] corrected for nucleated erythrocytes in Blood by Automated counOrdered By: Lambert Abraham on 76-68-5570SVV corrected for nucl RBC Auto (Bld) [#/Vol]8.2 10*3/uL3.8-11.6FSelect Medical Specialty Hospital - Board[facility], IncLymphocytes Auto (Bld) [#/Vol]Ordered By: Lambert Abraham on 19-79-5435Kbkxswlqwdt (Bld) [#/Vol]1.7 10*3/uL1.00-4.8Genesis HospitalLymphocytes/100 WBC Auto (Bld) Ordered By: Lambert Abraham on 09-64-0757Pdfxxlmttni/100 WBC (Bld)21.1 %.[facility] Auto (RBC) [Entitic mass]Ordered By: Lambert Abraham on 23-74-8195AMT (RBC) [Entitic mass]30.7 pg24.7-34.3FSelect Medical Specialty Hospital - CantonHC Auto (RBC) [Mass/Vol]Ordered By: Lambert Abraham on 65-80-1667VNST (RBC) [Mass/Vol]33.3 g/dL32.0-35.0[facility] Anderson HospitalV Auto (RBC) [Entitic vol]Ordered By: Lambert Arbaham on 37-65-9377UWL (RBC) [Entitic vol]92.1 fL 80-100Genesis HospitalMonocyte distribution width [Entitic volume] in Blood by AutomatedOrdered By: Lambert Abraham on 03-13-8727Jwlliqby distribution width Auto (Bld) [Entitic vol]16.94 %0.00-20.00Genesis HospitalMonocytes Auto (Bld) [#/Vol]Ordered By: Lambert Abraham on 11-01-2023 Monocytes (Bld) [#/Vol]0.6 10*3/uL0.0-0.8[facility] Monocytes/100 WBC Auto (Bld)Ordered By: Lambert Abraham on 89-39-5056Vqyaofgzb/100 WBC (Bld)6.8 %.[facility] HospitalNatriuretic peptide B [Mass/Vol] Ordered By: Lambert Abraham on 25-03-0123Tpzfoocaoyu peptide B (Bld) [Mass/Vol]230.0 pg/mL5-100[facility] HospitalNeutrophils Auto (Bld) [#/Vol] Ordered By: Lambert Abraham on 30-24-3172Aaokwyszqor (Bld) [#/Vol]5.7 10*3/uL1.8-7.7 [facility] HospitalNeutrophils/100 WBC Auto (Bld)Ordered By: Lambert Abraham on 96-24-1594Cacsptemjjq/100 WBC (Bld)69.8 %.[facility] HospitalNo Panel InformationOrdered By: Lambert Abraham on 96-75-3073Gfusbnhmi GFR (CKD-EPI)46.081 mL/MinGenesis HospitalPharmacy Creatinine Clearance (ChemN/AFSelect Medical Specialty Hospital - [facility], IncNucleated erythrocytes [Presence] in Blood by Automated countOrdered By: Lambert Abraham on 11-01-2023 Nucleated RBC Auto Ql (Bld)0.1 /100{WBC}0-0.5FSelect Medical Specialty Hospital - [facility], Inc Platelet mean volume Auto (Bld) [Entitic vol]Ordered By: Lambert Abraham on 45-67-3550Oyvoponr mean volume (Bld) [Entitic vol]9.0 fL6.3-10.7FSelect Medical Specialty Hospital - [facility], IncPlatelets Auto (Bld) [#/Vol]Ordered By: Lambert Abraham on 51-47-4391Bkzzxxyzm (Bld) [#/Vol]277 10*3/mH310-977GqzhglwbgGenesis HospitalPotassium [Moles/volume] in Serum or PlasmaOrdered By: Lambert Abraham on 14-86-3913Sdbqvhqzu [Moles/Vol]3.8 mmol/L3.5-5.1FSelect Medical Specialty Hospital - [facility], IncProtein [Mass/volume] in Serum or PlasmaOrdered By: Lambert Abraham on 36-20-2058Iebqcue [Mass/Vol]6.9 g/dL6.4-8.9[facility] Prothrombin time (PT)Ordered By: Lambert Abraham on 32-20-6810WF Coag (PPP) [Time] 11.3 s9.0-12.9[facility] HospitalComment on above:A hematocrit value greater than 55% may lead to inaccurate results in coagulation testing. Patientshaving hematocrit values >55% require a special collection tube for coagulation studies. Please contact the laboratory at [phone] for redraw instructions.RBC Auto (Bld) [#/Vol]Ordered By: Lambert Abraham on 22-16-6042QAF (Bld) [#/Vol]4.10 10*6/uL3.60-5.00[facility] Hospitalerum or plasma albumin/globulin mass ratioOrdered By: Lambert Abraham on 11-01-2023 Albumin/Globulin [Mass ratio]2.1 {ratio}[facility] Hospitalerum or plasma anion gap determinationOrdered By: Lambert Abraham on 12-13-5558Tmpwr gap [Moles/Vol]15.5 mmol/L6.0-15.0[facility] Hospitalerum or plasma non-glucuronidated bilirubin measurement (mass/volume)Ordered By: Lambert Abraham on 86-47-3161Vwiridbvz.indirect [Mass/Vol]0.3 mg/dLGlenbeigh Hospitalodium [Moles/volume] in Serum or PlasmaOrdered By: Lambert Abraham on 73-61-0797Tussmw [Moles/Vol]141 mmol/J149-872VsulxhnziGenesis Hospital Troponin I.cardiac [Mass/volume] in Serum or Plasma by Detection limit <= 0.01 ng/Ordered By: Lambert Abraham on 04-78-1849Cpnkcydo I.cardiac DL <= 0.01 ng/mL [Mass/Vol]7.0 pg/mL0.0-15.0[facility] HospitalUrea nitrogen [Mass/volume] in Serum or PlasmaOrdered By: Lambert Abraham on 19-08-6707Iwko nitrogen [Mass/Vol]42 mg/dL7-[facility] HospitalWBC Auto (Bld) [#/Vol]Ordered By: Lambert Abraham on 73-65-9540MKH (Bld) [#/Vol]8.2 10*3/uL3.8-11.6 [facility] HospitalAlanine aminotransferase [Enzymatic activity/volume] in Serum or PlasmaOrdered By: Lisa Graham on 38-47-7996UTW [Catalytic activity/Vol]13 U/L7-52[facility] HospitalAlbumin [Mass/volume] in Serum or Plasma by Bromocresol green (BCG) dye binding metho Ordered By: Lisa Graham on 77-42-9917Awjvnvb BCG dye [Mass/Vol]4.3 g/dL 3.5-5.7FSelect Medical Specialty Hospital - [facility], IncAlkaline phosphatase [Enzymatic activity/volume] in Serum or PlasmaOrdered By: Lisa Graham on 00-91-1820DFA [Catalytic activity/Vol]52 U/O71-470CvqwuksdjGenesis HospitalAspartate aminotransferase [Enzymatic activity/volume] in Serum or PlasmaOrdered By: Lisa Graham on 05-84-1881HDD [Catalytic activity/Vol]13 U/M33-84RtwvkgnbtGenesis HospitalBasophils Auto (Bld) [#/Vol]Ordered By: Lisa Graham on 04-33-4808Zqgoqskol (Bld) [#/Vol]0.1 10*3/uL0.0-0.2FSelect Medical Specialty Hospital - [facility], IncBasophils/100 WBC Auto (Bld)Ordered By: Lisa Graham on 10-27-2023 Basophils/100 WBC (Bld)0.8 %.[facility] HospitalBilirubin.total [Mass/volume] in Serum or PlasmaOrdered By: Lisa Graham on 10-27-2023 Bilirubin [Mass/Vol]0.4 mg/dL0.3-1.0[facility] HospitalCalcium [Mass/volume] in Serum or PlasmaOrdered By: Lisa Graham on 83-01-0808Rtqponj [Mass/Vol]9.3 mg/dL8.6-10.3FSelect Medical Specialty Hospital - [facility], IncCarbon dioxide, total [Moles/volume] in Serum or PlasmaOrdered By: Lisa Graham on 10-27-2023 CO2 [Moles/Vol]21.8 mmol/L21.0-31.0[facility] HospitalChloride [Moles/volume] in Serum or PlasmaOrdered By: Lisa Graham on 10-27-2023 Chloride [Moles/Vol]111 mmol/A09-422RdxehhncbGenesis HospitalCreatinine [Mass/volume] in Serum or PlasmaOrdered By: Lisa Graham on 10-27-2023 Creatinine [Mass/Vol]0.73 mg/dL0.60-1.20[facility] Eosinophils Auto (Bld) [#/Vol]Ordered By: Lisa Graham on 10-27-2023 Eosinophils (Bld) [#/Vol]0.1 10*3/uL0.0-0.45[facility] Eosinophils/100 WBC Auto (Bld)Ordered By: Lisa Graham on 10-27-2023 Eosinophils/100 WBC (Bld)1.7 %.[facility] HospitalErythrocyte distribution width Auto (RBC) [Ratio]Ordered By: Lisa Graham on 10-27-2023 Erythrocyte distribution width (RBC) [Ratio]13.8 %11.9-15.3FSelect Medical Specialty Hospital - [facility], IncGlobulin Calc (S) [Mass/Vol]Ordered By: Lisa Graham on 64-92-6620Amlupfjx (S) [Mass/Vol]1.9 g/dLGen[facility] Hospital Glucose [Mass/volume] in Serum or PlasmaOrdered By: Lisa Graham on 10-27-2023 Glucose [Mass/Vol]116 mg/vV65-149JyfgaypavGenesis HospitalComment on above:ADA recommended reference rangeRandom Glucose Reference Range is dependent on time and content of last meal. Glucose of more than 200 mg/dL in a nonstressed, ambulatory subject supports the diagnosisof Diabetes Mellitus. Hematocrit Auto (Bld) [Volume fraction]Ordered By: Lisa Graham on 10-27-2023 Hematocrit (Bld) [Volume fraction]36.0 %34.0-46.4FSelect Medical Specialty Hospital - [facility], IncHemoglobin [Mass/volume] in BloodOrdered By: Lisa Graham on 10-27-2023 Hemoglobin (Bld) [Mass/Vol]11.9 g/dL11.8-15.4FSelect Medical Specialty Hospital - [facility], Inc Leukocytes [#/volume] corrected for nucleated erythrocytes in Blood by Automated counOrdered By: Lisa Graham on 05-27-9046VIP corrected for nucl RBC Auto (Bld) [#/Vol]8.6 10*3/uL3.8-11.6FSelect Medical Specialty Hospital - [facility], IncLymphocytes Auto (Bld) [#/Vol]Ordered By: Lisa Graham on 16-27-7676Gjueuyvzdah (Bld) [#/Vol]1.8 10*3/uL1.00-4.8[facility] HospitalLymphocytes/100 WBC Auto (Bld)Ordered By: Lisa Graham on 02-02-0853Bvrqhurrmyh/100 WBC (Bld)20.7 %.[facility] HospitalH Auto (RBC) [Entitic mass]Ordered By: Lisa Graham on 03-68-0653LLA (RBC) [Entitic mass]30.7 pg24.7-34.3FSelect Medical Specialty Hospital - [facility], IncMCHC Auto (RBC) [Mass/Vol]Ordered By: Lisa Graham on 78-42-5322TBYB (RBC) [Mass/Vol]33.1 g/dL32.0-35.0[facility] HospitalMCV Auto (RBC) [Entitic vol]Ordered By: Lisa Graham on 03-65-7868TJM (RBC) [Entitic vol]92.9 oK23-315ZizeujosqGenesis HospitalMagnesium [Mass/volume] in Serum or PlasmaOrdered By: Lisa Graham on 10-27-2023 Magnesium [Mass/Vol]1.6 mg/dL1.9-2.7FSelect Medical Specialty Hospital - [facility], IncMonocytes Auto (Bld) [#/Vol]Ordered By: Lisa Graham on 63-36-9868Ovtqnqkzk (Bld) [#/Vol]0.5 10*3/uL0.0-0.8[facility] HospitalMonocytes/100 WBC Auto (Bld)Ordered By: Lisa Graham on 43-77-2433Okrgmksoo/100 WBC (Bld)6.3 %. [facility] HospitalNatriuretic peptide B [Mass/Vol]Ordered By: Lisa Graham on 61-26-3424Cqgrxuabsur peptide B (Bld) [Mass/Vol]207.0 pg/mL 5-100[facility] HospitalNeutrophils Auto (Bld) [#/Vol]Ordered By: Lisa Graham on 44-65-6695Ctyvfybopsq (Bld) [#/Vol]6.0 10*3/uL1.8-7.7FSelect Medical Specialty Hospital - [facility], IncNeutrophils/100 WBC Auto (Bld)Ordered By: Lisa Graham on 46-99-4876Mdvkenoitbp/100 WBC (Bld)70.5 %.[facility] No Panel InformationOrdered By: Lisa Graham on 89-92-2404Zzmjcwuvp GFR (CKD-EPI)> 60.0 mL/MinGenesis HospitalPharmacy Creatinine Clearance (ChemN/AFSelect [facility] Specialty [facility], IncNucleated erythrocytes [Presence] in Blood by Automated countOrdered By: Lisa Graham on 10-27-2023 Nucleated RBC Auto Ql (Bld)0.1 /100{WBC}0-0.5FSelect Medical Specialty Hospital - [facility], Inc Platelet mean volume Auto (Bld) [Entitic vol]Ordered By: Lisa Graham on 37-03-0501Dckiddan mean volume (Bld) [Entitic vol]9.3 fL6.3-10.7FSelect Medical Specialty Hospital - [facility], IncPlatelets Auto (Bld) [#/Vol]Ordered By: Lisa Graham on 56-11-8711Dnhtytctm (Bld) [#/Vol]271 10*3/fK651-851VovjeezzfGenesis HospitalPotassium [Moles/volume] in Serum or PlasmaOrdered By: Lisa Graham on 15-79-4115Ewuqnjzor [Moles/Vol]4.0 mmol/L3.5-5.1FSelect Medical Specialty Hospital - [facility], IncProtein [Mass/volume] in Serum or PlasmaOrdered By: Lisa Graham on 96-13-2364Tdkcvbx [Mass/Vol]6.2 g/dL6.4-8.9[facility] HospitalRBC Auto (Bld) [#/Vol]Ordered By: Lisa Graham on 80-08-4092JZM (Bld) [#/Vol]3.88 10*6/uL3.60-5.00[facility] Hospitalerum or plasma albumin/globulin mass ratioOrdered By: Lisa Graham on 10-27-2023 Albumin/Globulin [Mass ratio]2.3 {ratio}[facility] Hospitalerum or plasma anion gap determinationOrdered By: Lisa Graham on 19-64-6045Ibuio gap [Moles/Vol]14.2 mmol/L6.0-15.0[facility] Hospitalodium [Moles/volume] in Serum or PlasmaOrdered By: Lisa Graham on 05-49-2019Bzrvlr [Moles/Vol]143 mmol/V669-306WtocfwgdvGenesis HospitalUrea nitrogen [Mass/volume] in Serum or PlasmaOrdered By: Lisa Graham on 77-19-6053Pdns nitrogen [Mass/Vol]23 mg/dL7-25[facility] HospitalWBC Auto (Bld) [#/Vol]Ordered By: Lisa Graham on 78-50-1104QJL (Bld) [#/Vol]8.6 10*3/uL 3.8-11.6FSelect Medical Specialty Hospital - Board[facility], IncXR CHEST 2Von 25-59-5523[place] [address] XRay Report Signed Patient: KIMBERLY EVERETT MR#: [id number] : 1950 Acct:[id number] Age/Sex: 72 / F ADM Date: 10/25/23 Loc: RAD Attending Dr: BARTOLO RAMÍREZ Ordering Physician: BARTOLO RAMÍREZ Date of Service: 10/25/23 Procedure(s): XR chest 2V Accession Number(s): [id number] cc: BARTOLO RAMÍREZ ; LISA GRAHAM [address] [address] Patient Name: KIMBERLY EVERETT MRN: [id number] date: 1950 Sex: F Assigned Patient Location: [facility] Current Patient Location: [facility] Accession/Order Number: [id number] Exam Date: 10/25/2023 15:51 Report Date: 10/25/2023 16:06 At the request of: BARTOLO RAMÍREZ Procedure: XR chest 2V EXAM: XR chest 2V HISTORY: wheezing R06.2, Shortness of breath R06.02 COMPARISON: 08/01/2019 TECHNIQUE: Upright PA and lateral chest x-ray FINDINGS: The heart is not enlarged and the vasculature is not distended. No acute infiltrate, effusion or pneumothorax is identified. Scoliosis and mild degenerative changes are seen in the spine. XR/XR chest 2V IMPRESSION: No acute infiltrate or evidence of cardiac decompensation. The study is a bit limited by the patient's depth of inspiration. Given the differences in technique, the overall appearance of the chest is essentially unchanged. Electronically authenticated by: MARÍA SNEED Date: 10/25/2023 16:06 Dictated By: María Sneed M.D. Signed By: 10/25/23 1608 DD/ 160 TD/TT: [employer] Sales:HANNAHHRadiology, Radiologist, - 10/25/2023 [place] [address] XRay Report Signed Patient: KIMBERLY EVERETT MR#: [id number] : 1950 Acct:[id number] Age/Sex: 72 / F ADM Date: 10/25/23 Loc: RAD Attending Dr: BARTOLO RAMÍREZ Ordering Physician: BARTOLO RAMÍREZ Date of Service: 10/25/23 Procedure(s): XR chest 2V Accession Number(s): [id number] cc: BARTOLO RAMÍREZ ; LISA GRAHAM [address] [address] Patient Name: KIMBERLY EVERETT MRN: [id number] date: 1950 Sex: F Assigned Patient Location: RAD Current Patient Location: RAD Accession/Order Number: [id number] Exam Date: 10/25/2023 15:51 Report Date: 10/25/2023 16:06 At the request of: BARTOLO RAMÍREZ Procedure: XR chest 2V EXAM: XR chest 2V HISTORY: wheezing R06.2, Shortness of breath R06.02 COMPARISON: 08/01/2019 TECHNIQUE: Upright PA and lateral chest x-ray FINDINGS: The heart is not enlarged and the vasculature is not distended. No acute infiltrate, effusion or pneumothorax is identified. Scoliosis and mild degenerative changes are seen in the spine. XR/XR chest 2V IMPRESSION: No acute infiltrate or evidence of cardiac decompensation. The study is a bit limited by the patient's depth of inspiration. Given the differences in technique, the overall appearance of the chest is essentially unchanged. Electronically authenticated by: MARÍA SNEED Date: 10/25/2023 16:06 Dictated By: María Sneed M.D. Signed By: 10/25/23 1608 DD/ 1606 TD/TT: [employer] Sales: PRASHANT HealthcareRadiology Study observation (narrative)[facility] HealthcareXR CHEST 2V Ordered By: Radiologist Radiology on 12-98-9363XLXB Healthcare Work Phone: Office [facility] 34-31-3588Mxcxpq-up [id number] Kimberly Everett 1950 F Date Provider Department Center 09/06/2023 [facility] C[facility] No family history on file Level of Service:96744 [place] OFFICE/OUTPATIENT ESTABLISHED LOW MDM 20 [facility] HospitalC reactive protein [Mass/volume] in Serum or PlasmaOrdered By: Lisa Graham on 27-50-2954YAP [Mass/Vol]< 0.5 mg/dL0.0-0.5 [facility] HospitalErythrocyte sedimentation rate by Photometric methodOrdered By: Lisa Graham on 95-89-3858LPT Photometric method (Bld) [Velocity]3 mm/hr0-[facility] HospitalOffice [facility] 03-12-2023 Follow-up [id number] Kimberly Everett 1950 F Date Provider Department Center 03/12/2023 NICOLE DUNBAR [facility] No family history on file Level of Service:79141 [place] OFFICE/OUTPATIENT ESTABLISHED LOW MDM 20-29 [facility] HospitalOffice [facility] 68-11-6677Jpvhkb-up visit [id number] Kimberly Everett 1950 F Date Provider Department Center 02/22/2023 98428-FXSGOMVGXEPIFANIO LOZADA [facility] No family history on file Level of Service:88686 [place] OFFICE/OUTPATIENT ESTABLISHED MOD MDM 30-39 MIN Reason for Visit and Comments: Follow-up [668900][facility] HospitalTelephoneon [id number] KarlosAnitrah Tita 1950 F Date Provider Department Center 12/30/2022 JAMIA ARCE [facility]. No family history on fileNormalUSumma Health Wadsworth - Rittman Medical CenterOffice Vis[facility] 37-20-4932Redzuf-up [id number] Kimberly Everett 1950 Date Provider Department Center 12/28/2022 JAMIA ARCE [facility] No family history on file Level of Service:58335 [place] OFFICE/OUTPATIENT ESTABLISHED MOD MDM 30-39 MIN Reason for Visit and Comments: Shortness of Breath [580548] Hypertension [937060][facility] HospitalXR HIP RT 2 3V W PELVISon 89-17-1227UO HIP RT 2 3V W PELVISEXAM: XR HIP RT 2 3V W PELVIS HISTORY: Pain after fall COMPARISON: None. TECHNIQUE: 3 views FINDINGS: No osseous lesion, fracture, dislocation or subluxation. Joint spaces are unremarkable for patient's age. Small enthesophytes off the tendinous insertions. No visualized effusion. No visualized soft tissue edema. IMPRESSION: No visualized acute abnormality Electronically authenticated by: FOSTER COLES Date: 2022-10-04 19:52[facility] HospitalXR KNEE LT 4V or >on 45-30-7017HP KNEE LT 4V or >EXAM: XR KNEE LT 4V or > HISTORY: Fall COMPARISON: None. TECHNIQUE: 4 views FINDINGS: No osseous lesion, fracture, dislocation or subluxation. Small osteophytes off the articular surfaces. Joint spaces are normal. No visualized effusion. No visualized soft tissue edema. IMPRESSION: Normal x-rays Electronically authenticated by: FOSTER COLES Date: 2022-10-04 19:54NormalThUniversity Hospitals [facility] AUTO DIFFon 60-58-2502PAOI #0.1 103/ulNormal0.0-0.1[facility] CenterComment on above:Performed By: #### CBC #### [facility] [address] [place] [address] Dr. Marianna CaBasophils/100 WBC (Bld)0.9 %Normal0.2-2.0[facility] Comment on above:Performed By: #### CBC #### [facility] [address] [place] [address] Dr. Marianna Walton #0.3 103/ulNormal0.0-0.7The [facility] CompanyComment on above: Performed By: #### CBC #### [facility] [address] [place] [address] Dr. Marianna Caavzososinophils/100 WBC (Bld)3.9 %Normal0.9-7.0[facility] Comment on above:Performed By: #### CBC #### [facility] [address] [place] [address] Dr. Marianna Cavazosrythrocyte distribution width (RBC) [Ratio]13.0 %Kvdevs13.0-15.0 [facility] CenterComment on above:Performed By: #### CBC #### [facility] [address] [place] [address] Dr. Marianna CaHematocrit (Bld) [Volume fraction]39.9 %Hpjrei89.0-48.0[facility] Health CenterComment on above:Performed By: #### CBC #### [facility] [address] [place] [address] Dr. Marianna CaHemoglobin (Bld) [Mass/Vol]13.7 g/iBWssrvx67.0-16.0The [facility] CompanyComment on above:Performed By: #### CBC #### [facility] [address] [place] [address] Dr. Marianna Lovelace #0.02 10e3/ulNormal0.00-0.03The [facility] CompanyComment on above:Performed By: #### CBC #### [facility] [address] [place] [address] Dr. Marianna Lovelace %0.3 %Normal0.0-0.5The [facility] CompanyComment on above: Performed By: #### CBC #### [facility] [address] [place] [address] Dr. Marianna Cheatham #1.7 103/ulNormal1.2-3.8The [facility] CompanyComment on above:Performed By: #### CBC #### [facility] [address] [place] [address] Dr. Marianna Moranhocytes/100 WBC (Bld)25.2 %Guewau65.5-60.0The [facility] CompanyComment on above:Performed By: #### CBC #### [facility] [address] [place] [address] Dr. Marianna CaseyUAL DIFF REQNONormalThe [facility] CompanyComment on above: Performed By: #### CBC #### [facility] [address] [place] [address] Dr. Marianna Flaherty (RBC) [Entitic mass]30.6 qbCupesn53.7-34.0The [facility] Hospital CompanyComment on above:Performed By: #### CBC #### [facility] [address] [place] [address] Dr. Marianna Flaherty (RBC) [Mass/Vol]34.3 g/tTFnrzzf65.9-35.2The [facility] CompanyComment on above:Performed By: #### CBC #### [facility] [address] [address] [address] Marianna FlahertyV (RBC) [Entitic vol]89.1 mIFtatpf26.0-99.0The [facility] CompanyComment on above:Performed By: #### CBC #### [facility] [address] [place] [address] Dr. Marianna Salvador #0.5 103/ulNormal0.3-0.8The [facility] CompanyComment on above:Performed By: #### CBC #### [facility] [address] [place] [address] Dr. Marianna Oatesocytes/100 WBC (Bld)6.9 %Normal1.7-12.0The [facility] Comment on above:Performed By: #### CBC #### [facility] [address] [place] [address] Dr. Marianna Hooper #4.2 103/ulNormal1.4-6.5The [facility] CompanyComment on above:Performed By: #### CBC #### [facility] [address] [place] [address] Dr. Marianna Duutrophils/100 WBC (Bld)62.8 %Xeggfe15.0-75.0The [facility] CompanyComment on above:Performed By: #### CBC #### [facility] [address] [place] [address] Dr. Marianna Venturalet mean volume (Bld) [Entitic vol]9.9 fLNormal9.5-13.5The [facility] CompanyComment on above:Performed By: #### CBC #### [facility] [address] [place] [address] Dr. Marianna CaPLT282 103/brYurljk248-125Fsd [facility] CompanyComment on above: Performed By: #### CBC #### [facility] [address] [place] [address] Dr. Marianna CaRBC4.48 106/ulNormal4.20-5.40The [facility] CompanyComment on above:Performed By: #### CBC #### [facility] [address] [place] [address] Dr. Marianna CaWBC6.7 103/ulNormal4.0-11.0The [facility] CompanyComment on above: Performed By: #### CBC #### [facility] [address] [place] [address] Dr. Marianna Layton PROFILEon 99-80-2541BDWM-HDL RATIO NORMSEE BELOWHolmes County Joel Pomerene Memorial HospitalComment on above:Result Comment: 3.3 - 4.4 LOW RISK 4.4 - 7.1 AVERAGE RISK 7.1 - 11.0 MODERATE RISK >11.0 HIGH RISKPerformed By: #### LIPID, TSH, CMP #### [facility] [address] [place] [address] Dr. Marianna Jensenesterol [Mass/Vol]156 mg/dLNormal<=200The [facility] Comment on above:Performed By: #### LIPID, TSH, CMP #### [facility] [address] [place] [address] Dr. Marianna Jensenesterol in HDL [Mass/Vol]60 mg/rMKtclls56-34Uys [facility] CompanyComment on above:Performed By: #### LIPID, TSH, CMP #### [facility] [address] [place] [address] Dr. Marianna Jensenesterol in LDL [Mass/Vol]70.4 mg/dLHolmes County Joel Pomerene Memorial HospitalComment on above:Performed By: #### LIPID, TSH, CMP #### [facility] [address] [place] [address] Dr. Marianna Farfan.total/Cholesterol in HDL [Mass ratio]2.6 {ratio} NormalThe [facility] CompanyComment on above:Performed By: #### LIPID, TSH, CMP #### [facility] [address] [place] [address] Dr. Marianna Castellanos NORMAL> or = 60 mg/dl - LOW CARDIOVASCULAR RISK <40 mg/dl - HIGH CARDIOVASCULAR RISKHolmes County Joel Pomerene Memorial HospitalComment on above:Performed By: #### LIPID, TSH, CMP #### [facility] [address] [place] [address] Dr. Marianna Simpson CALC NORMALSEE BELOWHolmes County Joel Pomerene Memorial HospitalComment on above:Result Comment: <100 mg/dl OPTIMAL 100 - 129 mg/dl NEAR OR ABOVE OPTIMAL 130 - 159 mg/dl BORDERLINE HIGH 160 - 189 mg/dl HIGH >190 mg/dl VERY HIGH Performed By: #### LIPID, TSH, CMP #### [facility] [address] [place] [address] Dr. Marianna CaTriglyceride [Mass/Vol]128 mg/dLNormal<=150The [facility] Comment on above:Performed By: #### LIPID, TSH, CMP #### [facility] [address] [place] [address] Dr. Marianna CaVLDL CALC25.6 mg/dLHolmes County Joel Pomerene Memorial HospitalComment on above: Performed By: #### LIPID, TSH, CMP #### [facility] [address] [place] [address] Dr. Marianna CaPROF 14(COMP METB)on 99-90-8930Enlsxvw [Mass/Vol]4.0 g/dLNormal 3.4-5.0The [facility] CompanyComment on above:Performed By: #### LIPID, TSH, CMP #### [facility] [address] [place] [address] Dr. Marianna CaAlbumin/Globulin [Mass ratio]1.2 {ratio}NormalThe [facility] CompanyComment on above:Performed By: #### LIPID, TSH, CMP #### [facility] [address] [place] [address] Dr. Marianna Javier [Catalytic activity/Vol]78 U/HRwksbo42-187Bnr [facility] CompanyComment on above:Performed By: #### LIPID, TSH, CMP #### [facility] [address] [place] [address] Dr. Marianna Storey [Catalytic activity/Vol]17 U/HOzgyld03-31Anv [facility] CompanyComment on above:Performed By: #### LIPID, TSH, CMP #### [facility] [address] [place] [address] Dr. Marianna Almendarezon gap [Moles/Vol]10.8 mmol/LNormalOhiohealth Nelsonville Health Center Comment on above:Performed By: #### LIPID, TSH, CMP #### [facility] [address] [address] [address] Marianna CaAST [Catalytic activity/Vol]16 U/NNympes67-96Xmo [facility] CompanyComment on above:Performed By: #### LIPID, TSH, CMP #### [facility] [address] [address] [address] Marianna CaBilirubin [Mass/Vol]0.3 mg/dLNormal0.2-1.0[facility] Comment on above:Performed By: #### LIPID, TSH, CMP #### [facility] [address] [place] [address] Dr. Marianna CaCalcium [Mass/Vol]9.4 mg/dLNormal8.5-10.1[facility] Comment on above:Performed By: #### LIPID, TSH, CMP #### [facility] [address] [address] [address] Marianna CaChloride [Moles/Vol]106 mmol/TAsderh09-798AdaOhiohealth [facility] Comment on above:Performed By: #### LIPID, TSH, CMP #### [facility] [address] [address] [address] Marianna CaCO2 [Moles/Vol]27.9 mmol/RAefiog79.0-32.0[facility] Comment on above:Performed By: #### LIPID, TSH, CMP #### [facility] [address] [address] [address] Marianna CaCreatinine [Mass/Vol]0.69 mg/dLNormal0.55-1.02[facility] CompanyComment on above:Performed By: #### LIPID, TSH, CMP #### [facility] [address] [address] [address] Marianna CavazosGFR-AF PORTUGUESE>60Normal>=60[facility] CompanyComment on above:Performed By: #### LIPID, TSH, CMP #### [facility] [address] [address] [address] Marianna CavazosGFR-NON AF PORTUGUESE>60Normal>=60[facility] CompanyComment on above:Performed By: #### LIPID, TSH, CMP #### [facility] [address] [address] [address] Marianna CaGlobulin (S) [Mass/Vol]3.4 g/dLNormalThe [facility] CompanyComment on above:Performed By: #### LIPID, TSH, CMP #### [facility] [address] [address] [address] Marianna CaGlucose [Mass/Vol]101 mg/eBXpwgus34-820MjrOhiohealth [facility] Center Comment on above:Performed By: #### LIPID, TSH, CMP #### [facility] [address] [place] [address] Dr. Marianna CaPotassium [Moles/Vol]3.7 mmol/LNormal3.5-5.1[facility] Comment on above:Performed By: #### LIPID, TSH, CMP #### [facility] [address] [address] [address] Marianna CaProtein [Mass/Vol]7.4 g/dLNormal6.4-8.2[facility] Comment on above:Performed By: #### LIPID, TSH, CMP #### [facility] [address] [address] [address] Marianna CaSodium [Moles/Vol]141 mmol/FTnkpxa497-721Fih [facility] Comment on above:Performed By: #### LIPID, TSH, CMP #### [facility] [address] [address] [address] Marianna CaUrea nitrogen [Mass/Vol]21.0 mg/dLCritically high7.0-18.0[facility] CompanyComment on above:Performed By: #### LIPID, TSH, CMP #### [facility] [address] [address] [address] Marianna Zapien nitrogen/Creatinine [Mass ratio]30.4 mg/mgNormBarberton Citizens Hospitale [facility] CompanyComment on above:Performed By: #### LIPID, TSH, CMP #### [facility] [address] [place], [place] [address] Dr. Marianna Vera 47-33-5660WQO2.973 uIU/mLNormal0.358-3.740The [facility] CompanyComment on above:Performed By: #### LIPID, TSH, CMP #### [facility] [address] [place], [place] [address] Dr. Cabral ChangECHOCARDIO M/2D COMPLETEon [id number] M/2D COMPLETE Patient: KIMBERLY EVERETT Exam Date: 12/31/2021 : 1950 Gender:F Ordering : JAMIA JulissaGinger JOSEP Admission #: [id number] Family : Order #: [id number] CLICK HERE TO VIEW EXAM ECHOCARDIOGRAM REPORT [...] Area(A4C): 12.00 cm2 Left Atrium Systolic Volume(A4C): 76069 mm3 Mitral Valve MV E to A Ratio: 0.60 Mitral Valve A-Wave Peak Velocity: 143.00 cm/s Mitral Valve E-Wave Peak Velocity: 83.40 cm/s Deceleration Time: 198 ms Right Ventricle Aorta AO Root Diam: 2.70 cm Aortic Valve AoV Area (Peak Fe): 2.19 cm2 Peak Velocity(Antegrade Flow): 119.00 cm/s Peak Gradient(Antegrade Flow): 6 mm[Hg] Tricuspid Valve Pulmonic Valve Peak Velocity: 113.00 cm/s Peak Gradient: 5 mm[Hg] Right Atrium Dictated by: Dolores Castaneda M.D. on 01/01/2022 at 13:19 Approved by: Dolores Castaneda M.D. on 01/01/2022 at 13:24[facility] HospitalBNPon [id number] peptide B (Bld) [Mass/Vol]295.0 pg/mLNormal <=900.0The [facility] CompanyComment on above:Performed By: #### BNP, CMP #### [facility] [address] [place] [address] Dr. Marianna Barraza 14(COMP METB)on [id number] [Mass/Vol]4.1 g/dLNormal 3.4-5.0[facility] CompanyComment on above:Performed By: #### BNP, CMP #### [facility] [address] [place] [address] Dr. Marianna CaAlbumin/Globulin [Mass ratio]1.2 {ratio}NormalThe [facility] CompanyComment on above:Performed By: #### BNP, CMP #### [facility] [address] [place] [address] Dr. Marianna DominguezP [Catalytic activity/Vol]72 U/FMvykyq09-528Ktk [facility] CompanyComment on above:Performed By: #### BNP, CMP #### [facility] [address] [place] [address] Dr. Marianna Storey [Catalytic activity/Vol]21 U/RPmjvhk03-81Yia [facility] CompanyComment on above:Performed By: #### BNP, CMP #### [facility] [address] [place] [address] Dr. Marianna Quintana gap [Moles/Vol]15.9 mmol/LNormalThe [facility] Comment on above:Performed By: #### BNP, CMP #### [facility] [address] [place] [address] Dr. Marianna Cruz [Catalytic activity/Vol]22 U/VOdpcze47-13Yfb [facility] CompanyComment on above:Performed By: #### BNP, CMP #### [facility] [address] [place] [address] Dr. Marianna CaBilirubin [Mass/Vol]0.2 mg/dLNormal0.2-1.0[facility] Comment on above:Performed By: #### BNP, CMP #### [facility] [address] [place] [address] Dr. Marianna CaCalcium [Mass/Vol]8.7 mg/dLNormal8.5-10.1[facility] Comment on above:Performed By: #### BNP, CMP #### [facility] [address] [place] [address] Dr. Marianna CaChloride [Moles/Vol]104 mmol/XPvdqcy02-521Ovt [facility] Comment on above:Performed By: #### BNP, CMP #### [facility] [address] [place] [address] Dr. Marianna CaCO2 [Moles/Vol]24.9 mmol/EFxqtre19.0-32.0[facility] Comment on above:Performed By: #### BNP, CMP #### [facility] [address] [place] [address] Dr. Marianna CaCreatinine [Mass/Vol]0.88 mg/dLNormal0.55-1.02The [facility] CompanyComment on above:Performed By: #### BNP, CMP #### [facility] [address] [place] [address] Dr. Marianna CavazosGFR-AF PORTUGUESE>60Normal>=60The [facility] CompanyComment on above:Performed By: #### BNP, CMP #### [facility] [address] [place] [address] Dr. Marianna CavazosGFR-NON AF PORTUGUESE>60Normal>=60The [facility] CompanyComment on above:Performed By: #### BNP, CMP #### [facility] [address] [place] [address] Dr. Marianna CaGlobulin (S) [Mass/Vol]3.5 g/dLNormalThe [facility] CompanyComment on above:Performed By: #### BNP, CMP #### [facility] [address] [place] [address] Dr. Marianna CaGlucose [Mass/Vol]103 mg/qFQxduej42-745Ccx [facility] Comment on above:Performed By: #### BNP, CMP #### [facility] [address] [place] [address] Dr. Marianna CaPotassium [Moles/Vol]3.8 mmol/LNormal3.5-5.1[facility] Comment on above:Performed By: #### BNP, CMP #### [facility] [address] [place] [address] Dr. Marianna CaProtein [Mass/Vol]7.6 g/dLNormal6.4-8.2[facility] Comment on above:Performed By: #### BNP, CMP #### [facility] [address] [address] [address] Marianna CaSodium [Moles/Vol]141 mmol/QSmbbsa416-640Ujy [facility] Comment on above:Performed By: #### BNP, CMP #### [facility] [address] [address] [address] Marianna CaUrea nitrogen [Mass/Vol]20.0 mg/dLCritically high7.0-18.0The [facility] CompanyComment on above:Performed By: #### BNP, CMP #### [facility] [address] [address] [address] Marianna Zapien nitrogen/Creatinine [Mass ratio]22.7 mg/mgNoWVUMedicine Barnesville HospitalComment on above:Performed By: #### BNP, CMP #### [facility] [address] [place] [address] Dr. Marianna CaXR CHEST 2 Von [id number] CHEST 2 VEXAM: CHEST 2 VIEWS HISTORY: Dyspnea TECHNIQUE: PA [...] Electronically authenticated by: MINERVA HERRERA Date: 2021-12-12 12:13[facility] HospitalCardiovascular Lab Reporton [id number] Lab Report [facility] #: [id number] Department of Physician: Claire Ward M.D. Division of Service Date: 08/17/2019 Cardiology Birthdate: 1950 Adult Cardiovascular Room #: 3AB 265159 [facility] [address] [place] [address] Cardiovascular Laboratory Report FINAL IMPRESSIONS: 1. Mild [...] bilateral selective coronary angiography, placement of a 6-Hebrew MynxGrip closure device. METHODS: After risks, benefits, and alternatives were explained, written informed consent was obtained. The patient was prepped and draped in usual sterile fashion over the right groin. Using 1% lidocaine solution, local infiltration anesthesia was achieved. Using a modified Seldinger technique and a micropuncture kit, access to the right common femoral vein and artery was obtained. A 6-Hebrew 11 cm sheath was placed in each. [...] was elected to conclude the procedure. A 6-Hebrew MynxGrip closure device was deployed. However failed; [...] P/Den [place] M.D. Date Trans: 08/18/2019 01:09 Tita/imer [id number] cc: Nicole Beckham, MSN, IMAGERY ANALYST-C Department Of Surgery [address] [facility] [address] [place] M.D. [address] [place] [address] Orestes Roblero M.D. Executive DrGinger, [facility] [address] [address] [facility]Ad[facility] Vital Signs Date TimeVital SignValuePerforming DaptohctsVkueonfw38-76-5621 15:05-0400Body lhdbup698.94 cmMatthew Gladys DO Work Phone: 1(202)[address] [place], [place] [address]-20-2025 15:05-0400 Body mass index (BMI) [Ratio]28.7 kg/h7Xvslxij Gladys DO Work Phone: 1(150)[address] [place], [place] [address]-20-2025 15:05-0400 Body .94 kgMatthew Gladys DO Work Phone: 1(174)[address] [place], [place] [address]-20-2025 15:05-0400 Diastolic blood aggspvzk83 mm[Hg]Lisa Wolffmer DO Work Phone: 1(923)[address] [place], [place] [address]-20-2025 15:05-0400 Heart rate74 /minMatthew Gladys DO Work Phone: 1(898)[address] [place], [place] [address]-20-2025 15:05-0400 Systolic blood xiwjdifr195 mm[Hg]Lisa Gladys DO Work Phone: 1(317)[address] [place], [place] [address]-01-2025 11:15-0400 Diastolic blood tfgegelh79 mm[Hg]Lisa Wolffmer DO Work Phone: 1(815)[address] [place], [place] [address]-01-2025 11:15-0400 Systolic blood yjtvhlic158 mm[Hg]Lisa Gladys DO Work Phone: 1(597)[address] [place], [place] [address]-01-2025 10:51-0400 Body xtyhuj632.94 cmMatthew Gladys DO Work Phone: 1(384)[address] [place], [place] [address]-01-2025 10:51-0400 Body mass index (BMI) [Ratio]29.6 kg/s9Chajinn Gladys DO Work Phone: 1(834)[address] [place], [place] [address]-01-2025 10:51-0400 Body .21 kgMatthew Gladys DO Work Phone: [facility]10-01-2025 10:51-0400 Heart rate82 /minMatthew Gladys DO Work Phone: [phone]10-01-2025 10:51-0400 Respiratory rate18 /minMatthew Gladys DO Work Phone: [phone]10-01-2025 10:51-0400 SaO2% (BldA) [Mass fraction]98 %Lisa Graham DO Work Phone: [facility]09-22-2025 13:23-0400 Body bcoptp615.9 cmAndrea Daley MD Work Phone: [facility]09-22-2025 13:23-0400Body mass index (BMI) [Ratio]31.37 kg/t8IcxrlvuAndrea Daley MD Work Phone: [facility] Mnlmiz54-15-6104 13:23-0400Body jryuhn23.3 kgAndrea Daley MD Work Phone: [facility] Lwetys95-03-6847 13:23-0400Diastolic blood bbstoffk95 mm[Hg]Andrea Daley MD Work Phone: [facility] Avmfma26-57-7650 13:23-0400Heart rate 87 /minAndrea Daley MD Work Phone: [facility]09-22-2025 13:23-0400Systolic blood gdjzyggv161 mm[Hg]Andrea Daley MD Work Phone: [facility]09-05-2025 13:22-0400Body liemwo019.94 cmMattjose Graham DO Work Phone: [facility]09-05-2025 13:22-0400 Body mass index (BMI) [Ratio]29.6 kg/p0Gskjduy Gladys DO Work Phone: 1(386)[address] [place], [place] [address]-05-2025 13:22-0400 Body eiffsu84.21 kgMattmartellw Gladys DO Work Phone: 1(404)[address] [place], [place] [address]-05-2025 13:22-0400 Diastolic blood gihhnzpv69 mm[Hg]Lisa Graham DO Work Phone: 1(366)[address] [place], [place] [address]-05-2025 13:22-0400 Heart rate85 /minMatthew Gladys DO Work Phone: 1(021)[address] [place], [place] [address]-05-2025 13:22-0400 Systolic blood liopqsoe445 mm[Hg]Lisa Graham DO Work Phone: 1(969)[address] [place], [place] [address]-02-2025 13:56-0400 Body ckvuhf424.94 cmMattjose Gladys DO Work Phone: 1(237)[address] [place], [place] [address]-02-2025 13:56-0400 Body mass index (BMI) [Ratio]29.6 kg/e1Pstapet Gladys DO Work Phone: 1(007)[address] [place], [place] [address]-02-2025 13:56-0400 Body hkjojw76.21 kgMatthew Gladys DO Work Phone: 1(323)[address] [place], [place] [address]-02-2025 13:56-0400 Diastolic blood uqqkifwh15 mm[Hg]Lisa Graham DO Work Phone: 1(121)[address] [place], [place] [address]-02-2025 13:56-0400 Heart rate84 /minMatthew Gladys DO Work Phone: 1(877)[address] [place], [place] [address]-02-2025 13:56-0400 Respiratory rate18 /minMatthew Gladys DO Work Phone: 1(025)[address] [place], [place] [address]-02-2025 13:56-0400 SaO2% (BldA) [Mass fraction]98 %Lisa Graham DO Work Phone: 1(658)644-[facility]09-02-2025 13:56-0400 Systolic blood mm[Hg]Lisa Gladys DO Work Phone: 1(658)3-[address] [place], [place] [address]11808-11-2025 13:37-0400 Body icgyox406.9 cmBartolo Ramírez MD Work Phone: [facility] ChildrenPsoehlkbqo94-69-5911 13:37-0400Body mass index (BMI) [Ratio]29.29 kg/r7CedxmjiBartolo Ramírez MD Work Phone: [address] [place], [place] [address]Zjoldqmymd35-54-0765 13:37-0400Body .31 kgBartolo Ramírez MD Work Phone: [facility] ChildrenGiayykhbkf11-01-4423 13:37-0400Diastolic blood jzeqwuru47 mm[Hg]Bartolo Ramírez MD Work Phone: [facility] ChildrenCrzjvintez51-19-9491 13:37-0400Systolic blood fweuhxyi519 mm[Hg]Bartolo Ramírez MD Work Phone: [facility] ChildrenAdscadmvxv08-95-7895 13:10-0400Body fenzju066.94 cmMattmartellw Gladys DO Work Phone: 1(692)[address]06-16-2025 13:10-0400 Body mass index (BMI) [Ratio]29.6 kg/e0Fxvncgr Gladys DO Work Phone: 1(924)[address]06-16-2025 13:10-0400 Body byscoa18.21 kgMatthew Gladys DO Work Phone: 1(868)[address] [place], [place] [address]-16-2025 13:10-0400 Diastolic blood vmuuztey37 mm[Hg]Lisa Gladys DO Work Phone: 1(427)[address] [place], [place] [address]-16-2025 13:10-0400 Heart rate76 /minMatthew Gladys DO Work Phone: 1(820)0-[address] [place], [place] [address]11806-16-2025 13:10-0400 Respiratory rate16 /minMatthew Gladys DO Work Phone: [facility]06-16-2025 13:10-0400 SaO2% (BldA) [Mass fraction]95 %Lisa Graham DO Work Phone: [facility]06-16-2025 13:10-0400 Systolic blood avxeaqmp472 mm[Hg]Lisa Graham DO Work Phone: 1(479)[address]05-05-2025 16:36-0400 Body xldbud708.9 cmGarland Lockett MD Work Phone: [facility]05-05-2025 16:36-0400Body mass index (BMI) [Ratio]29.21 kg/c8QavcbGarland Lockett MD Work Phone: [facility]05-05-2025 16:36-0400Body aklryr78.13 kgGarland Lockett MD Work Phone: [facility]05-05-2025 16:36-0400Diastolic blood mm[Hg]Garland Lockett MD Work Phone: [facility]05-05-2025 16:36-0400Heart rate84 /min Garland Lockett MD Work Phone: [facility]05-05-2025 16:36-0400Systolic blood onmarncj628 mm[Hg]Garland Lockett MD Work Phone: [facility]03-06-2025 13:57-0500Body nwynpf781.94 cmMattmartelldread Gladys DO Work Phone: [facility]03-06-2025 13:57-0500 Body mass index (BMI) [Ratio]29.5 kg/v4Xsrgaad Gladys DO Work Phone: [facility]03-06-2025 13:57-0500 Body kagffj99.76 kgMattjose Graham DO Work Phone: 1(674)[address] [place], [place] [address]-06-2025 13:57-0500 Diastolic blood lwufwugq41 mm[Hg]Lisa Graham DO Work Phone: 1(902)[address] [place], [place] [address]-06-2025 13:57-0500 Heart rate87 /minMattmartellw Gladys DO Work Phone: 1(137)[address] [place], [place] [address]-06-2025 13:57-0500 Respiratory rate18 /minMatthew Gladys DO Work Phone: 1(889)[address] [place], [place] [address]-06-2025 13:57-0500 SaO2% (BldA) [Mass fraction]97 %Lisa Graham DO Work Phone: 1(118)[address] [place], [place] [address]-06-2025 13:57-0500 Systolic blood erngzwyv776 mm[Hg]Lisa Graham DO Work Phone: 1(996)[address] [place], [place] [address]-30-2024 12:59-0500 Body hehnhs949.94 cmMattjose Graham DO Work Phone: 1(918)[address] [place], [place] [address]-30-2024 12:59-0500 Body mass index (BMI) [Ratio]29.7 kg/a8Qkgjznb Gladys DO Work Phone: 1(036)[address] [place], [place] [address]-30-2024 12:59-0500 Body vpfswsxoipr54.1 [degF]Lisa Graham DO Work Phone: 1(164)[address] [place], [place] [address]-30-2024 12:59-0500 Body .32 kgMattjose Wolffmer DO Work Phone: 1(351)[address] [place], [place] [address]-30-2024 12:59-0500 Diastolic blood iliwjlnt59 mm[Hg]Lisa Graham DO Work Phone: 1(470)[address] [place], [place] [address]-30-2024 12:59-0500 Heart rate86 /minMatthew Gladys DO Work Phone: 1(731)[address] [place], [place] [address]-30-2024 12:59-0500 Respiratory rate18 /minMatthew Gladys DO Work Phone: 1(496)[address] [place], [place] [address]-30-2024 12:59-0500 SaO2% (BldA) [Mass fraction]95 %Lisa Graham DO Work Phone: 1(676)[address] [place], [place] [address]-30-2024 12:59-0500 Systolic blood pziuvkzx824 mm[Hg]Lisa Graham DO Work Phone: 1(704)[address] [place], [place] [address]-21-2024 16:21-0500 Body lqiefx118.9 cmBartolo Ramírez MD Work Phone: 1(476)[address]11-21-2024 16:21-0500Body mass index (BMI) [Ratio]28.34 kg/q4XryimlhBartolo Ramírez MD Work Phone: 1(152)[address] [place], [place] [address]6611-21-2024 16:21-0500Body pqocdy47.04 kgBartolo Ramírez MD Work Phone: 1(659)9[facility]09[facility] ChildrenOefjbxquqg05-33-5557 14:14-0400Body hexqtg027.94 cmDO Lisa Graham Work Phone: 1(787)[address] [place] [address]-23-2024 14:14-0400 Body mass index (BMI) [Ratio]28.7 kg/m2DO Lisa Graham Work Phone: 1(665)[address] [place] [address]-23-2024 14:14-0400 Body kxloqn97 kgDO Lisa Graham Work Phone: 1(609)[address] [place], [place] [address]-16-2024 12:53-0400 Body ortmmd852.94 cmDO Lisa Graham Work Phone: 1(472)[address] [place] [address]-16-2024 12:53-0400 Body mass index (BMI) [Ratio]28.9 kg/m2DO Lisa Graham Work Phone: 1(485)[address]09-16-2024 12:53-0400 Body seqoax52.42 kgDO Lisa Graham Work Phone: 1(853)[address] [place], [place] [address]-16-2024 12:53-0400 Diastolic blood yddkjzof04 mm[Hg]DO Lisa Graham Work Phone: 1(507)[address] [place], [place] [address]-16-2024 12:53-0400 Heart rate78 /RaghuO Lisa Graham Work Phone: 1(775)[address] [place], [place] [address]-16-2024 12:53-0400 Respiratory rate18 /minDO Lisa Graham Work Phone: 1(259)[address] [place], [place] [address]-16-2024 12:53-0400 SaO2% (BldA) [Mass fraction]98 %DO Lisa Graham Work Phone: 1(398)[address] [place], [place] [address]-16-2024 12:53-0400 Systolic blood mm[Hg]DO Lisa Graham Work Phone: 1(902)[address] [place], [place] [address]-26-2024 14:11-0400 Body exdyvf624.9 cmAndrea Daley MD Work Phone: [facility]08-26-2024 14:11-0400Body mass index (BMI) [Ratio]31.37 kg/s7LdldshpAndrea Daley MD Work Phone: [facility]08-26-2024 14:11-0400Body ennrls26.3 kgAndrea Daley MD Work Phone: [facility]08-26-2024 14:11-0400Diastolic blood kpwrkanl39 mm[Hg]Andrea Daley MD Work Phone: [facility]08-26-2024 14:11-0400Heart rate 75 /minAndrea Daley MD Work Phone: [facility]08-26-2024 14:11-0400Systolic blood iusfwztx970 mm[Hg]Andrea Daley MD Work Phone: [facility]08-21-2024 13:06-0400Body xzdqny924.9 cmBartolo Ramírez MD Work Phone: [facility] ChildrenWsyrbzjism01-44-7753 13:06-0400Body mass index (BMI) [Ratio]28.34 kg/k0DelbwvgBartolo Ramírez MD Work Phone: [facility] ChildrenGzbhxqabix83-74-1504 13:06-0400Body .04 kgBartolo Ramírez MD Work Phone: [facility] ChildrenMxpcwltabs45-23-3969 13:06-0400Diastolic blood mm[Hg]Bartolo Ramírez MD Work Phone: [facility] ChildrenKgecgxdygr78-49-2189 13:06-0400Systolic blood ilonztye209 mm[Hg]Bartolo Ramírez MD Work Phone: [facility] ChildrenZedqaboafs35-86-0114 13:12-0400Body thywuw460.94 [facility]08-[facility]-2024 13:12-0400Body mass index (BMI) [Ratio]27.8 kg/p7PzujbcxksGenesis Hospital08-20-2024 13:12-0400Body iexmhm00.67 kgGen[facility]08-20-2024 13:12-0400Diastolic blood ucmswotb52 mm[Hg][facility]08-20-2024 13:12-0400 Heart rate81 /minGenesis Hospital08-20-2024 13:12-0400Systolic blood qntqydyt001 mm[Hg][facility]06-06-2024 13:30-0400 Body brzecc714.94 cmDO Lisa Graham Work Phone: [facility]06-06-2024 13:30-0400 Body mass index (BMI) [Ratio]28.3 kg/m2DO Lisa Graham Work Phone: [facility]06-06-2024 13:30-0400 Body azvqpm74.03 kgDO Lisa Graham Work Phone: 1(675)[address] [place], [place] [address]-06-2024 13:30-0400 Diastolic blood ngnwombd58 mm[Hg]DO Lisa Graham Work Phone: 1(686)[address] [place], [place] [address]-06-2024 13:30-0400 Heart mhlw693 /minDO Lisa Graham Work Phone: 1(790)[address] [place], [place] [address]-06-2024 13:30-0400 SaO2% (BldA) [Mass fraction]95 %DO Lisa Graham Work Phone: 1(908)[address] [place], [place] [address]-06-2024 13:30-0400 Systolic blood ctfiwtot013 mm[Hg]DO Lisa Graham Work Phone: 1(640)[address] [place], [place] [address]-03-2024 13:04-0400 Body bsxlet997.94 cmDO Lisa Graham Work Phone: 1(492)[address] [place], [place] [address]-03-2024 13:04-0400 Body mass index (BMI) [Ratio]28.5 kg/m2DO Lisa Graham Work Phone: 1(295)[address] [place], [place] [address]-03-2024 13:04-0400 Body qnvtludtwvo98 [degF]DO Lisa Graham Work Phone: 1(025)[address] [place], [place] [address]-03-2024 13:04-0400 Body ldmfmu24.49 kgDO Lisa Graham Work Phone: 1(704)[address] [place], [place] [address]-03-2024 13:04-0400 Diastolic blood hokrmkxa17 mm[Hg]DO Lisa Graham Work Phone: 1(130)[address] [place], [place] [address]-03-2024 13:04-0400 Heart rate79 /minDO Lisa Gladys Work Phone: 1(724)[address] [place], [place] [address]-03-2024 13:04-0400 Respiratory rate20 /minDO Lisa Graham Work Phone: 1(491)[address] [place], [place] [address]-03-2024 13:04-0400 SaO2% (BldA) [Mass fraction]97 %DO Lisa Graham Work Phone: 1(089)[address] [place], [place] [address]-03-2024 13:04-0400 Systolic blood xtydijoh013 mm[Hg]DO Lisa Graham Work Phone: 1(951)[address] [place], [place] [address]2004-22-2024 13:35-0400 Body xtmisc381.94 cmDO Lisa Graham Work Phone: 1(297)[address] [place], [place] [address]2004-22-2024 13:35-0400 Body mass index (BMI) [Ratio]28.5 kg/m2DO Lisa Graham Work Phone: 1(143)[address] [place], [place] [address]2004-22-2024 13:35-0400 Body lkytvy79.49 kgDO Lisa Graham Work Phone: 1(057)[address] [place], [place] [address]2004-22-2024 13:35-0400 Diastolic blood jqmnfppa43 mm[Hg]DO Lisa Graham Work Phone: [phone] [place], [place] [address]2004-22-2024 13:35-0400 Heart rate84 /minDO Lisa Graham Work Phone: [phone])[address] [place], [place] [address]2004-22-2024 13:35-0400 SaO2% (BldA) [Mass fraction]96 %DO Lisa Graham Work Phone: [phone])[address] [place], [place] [address]2004-22-2024 13:35-0400 Systolic blood mm[Hg]DO Lisa Graham Work Phone: 1(336)[address] [place], [place] 3892003-27-2024 10:06-0400 Heart rate42 /minDO Lisa Graham Work Phone: 1(507)[address] [place], [place] 3892003-27-2024 10:06-0400 Respiratory rate20 /minDO Lisa Graham Work Phone: 1(755)[address] [place], [place] 3892003-27-2024 07:22-0400 Body dhrgmcuaegj35.6 [degF]DO Lisa Graham Work Phone: 1(299)[address] [place], [place] [address]2003-27-2024 07:22-0400 Diastolic blood jpkynzgh11 mm[Hg]DO Lisa Graham Work Phone: 1(255)[address] [place], [place] [address]2003-27-2024 07:22-0400 SaO2% (BldA) [Mass fraction]95 %DO Lisa Graham Work Phone: 1(572)[address] [place], [place] [address]2003-27-2024 07:22-0400 Systolic blood tbqltpcu901 mm[Hg]DO Lisa Graham Work Phone: 1(743)[address] [place], [place] 3892003-27-2024 06:00-0400 Body izjjqn30.6 kgDO Lisa Graham Work Phone: 1(851)[address] [place], [place] 3892003-26-2024 15:08-0400 Body dtxpfu823.94 cmDO Lisa Graham Work Phone: 1(141)[address] [place], [place] [address]2003-26-2024 00:26-0400 Diastolic blood mm[Hg]DO Lisa Graham Work Phone: [address] [place], [place] 3892003-26-2024 00:26-0400 Heart rate43 /minDO Lisa Graham Work Phone: 1(473)[address] [place], [place] [address]2003-26-2024 00:26-0400 Respiratory rate18 /minDO Lisa Graham Work Phone: 1(359)[address] [place], [place] [address]2003-26-2024 00:26-0400 SaO2% (BldA) [Mass fraction]94 %DO Lisa Graham Work Phone: 1(363)[address] [place], [place] 3892003-26-2024 00:26-0400 Systolic blood shhwehza432 mm[Hg]DO Lisa Graham Work Phone: 1(990)[address] [place], [place] [address]2003-25-2024 23:05-0400 Diastolic blood bjsiocds38 mm[Hg]DO Lisa Graham Work Phone: 1(005)[address] [place], [place] [address]2003-25-2024 23:05-0400 Heart rate41 /minDO Lisa Graham Work Phone: 1(226)[address] [place], [place] 3892003-25-2024 23:05-0400 Respiratory rate22 /minDO Lisa Graham Work Phone: 1(018)[address] [place], [place] [address]2003-25-2024 23:05-0400 SaO2% (BldA) [Mass fraction]94 %DO Lisa Graham Work Phone: 1(116)[address] [place], [place] [address]2003-25-2024 23:05-0400 Systolic blood kamabcsb166 mm[Hg]DO Lisa Graham Work Phone: 1(175)[address] [place], [place] [address]2003-25-2024 22:56-0400 Body ununsbzuxmy47.6 [degF]DO Lisa Graham Work Phone: 1(464)[address] [place], [place] [address]2003-25-2024 19:00-0400 Body zfutgz925.94 cmDO Lisa Graham Work Phone: 1(547)[address] [place], [place] [address]2003-25-2024 19:00-0400 Body dunmfh91.3 kgDO Lisa Graham Work Phone: 1(924)[address] [place], [place] [address]2003-25-2024 16:07-0400 Body .21 cmDO Lisa Graham Work Phone: 1(233)[address] [place], [place] [address]2003-25-2024 16:07-0400 Body mass index (BMI) [Ratio]30.2 kg/m2DO Lisa Graham Work Phone: 1(949)[address] [place], [place] [address]2003-25-2024 16:07-0400 Body .93 kgDO Lisa Graham Work Phone: 1(650)[address] [place], [place] [address]2003-25-2024 16:07-0400 Diastolic blood dboctkuy02 mm[Hg]DO Lisa Graham Work Phone: [facility]03-25-2024 16:07-0400 Heart rate45 /minDO Lisa Graham Work Phone: [facility]03-25-2024 16:07-0400 SaO2% (BldA) [Mass fraction]98 %DO Lisa Graham Work Phone: [facility]03-25-2024 16:07-0400 Systolic blood xhbgdqci011 mm[Hg]DO Lisa Graham Work Phone: [facility]03-20-2024 14:41-0400 Body nnnxyc422.21 [facility]2024 14:41-0400Body mass index (BMI) [Ratio]30.2 kg/g0KkunuhmnfGenesis Hospital03-20-2024 14:41-0400Body .93 kg[facility]03-20-2024 14:41-0400Diastolic blood wuekryqf05 mm[Hg][facility] 10-27-2023 14:41-0400Heart rate44 /[facility] 10-27-2023 14:41-9310KfJ5% (BldA) [Mass fraction]98 %[facility]03-20-2024 14:41-0400Systolic blood borduexc108 mm[Hg][facility]12-12-2023 15:45-0500Body wwpifu784.21 cmChrmickie Bo Other [facility] Other 12-12-2023 15:45-0500Body mass index (BMI) [Ratio] 30.11 kg/o7Jqfbojkxmdk Betzy Other [employer] Other 12-12-2023 15:45-0500Body ejxeetloiyp74.3 [degF] Piyush Bo Other [employer] Other 12-12-2023 15:45-0500Body .48 kgChristopher Betzy Other [employer] Other 12-12-2023 15:45-0500Diastolic blood aexcmtgs19 mm[Hg] Christopher Betzy Other [employer] Other 12-12-2023 15:45-0500Respiratory rate20 /min Christmaiker Betzy Other [employer] Other 12-12-2023 15:45-8227YaR7% (BldA) [Mass fraction]97 % Christmaiker Betzy Other [employer] Other 12-12-2023 15:45-0500Systolic blood mm[Hg] Christmaiker Betzy Other [employer] Other 12-06-2023 13:30-0500Body .21 cmMakaiser Graham Other [employer] Other 12-06-2023 13:30-0500Body mass index (BMI) [Ratio] 30.59 kg/x0TnnevtuLisa Graham Other [employer] Other 12-06-2023 13:30-0500Body ujoyim22.66 kgMattjose Graham Other [employer] Other 12-06-2023 13:30-0500Diastolic blood pvmpvtam64 mm[Hg] Lisa Graham Other [employer] Other 12-06-2023 13:30-0500Respiratory rate20 /minLisa Graham Other [employer] Other 12-06-2023 13:30-0664VvG0% (BldA) [Mass fraction]98 % Lisa Graham Other [employer] Other 12-06-2023 13:30-0500Systolic blood dsgspvav019 mm[Hg] Lisa Graham Other [employer] Other 11-09-2023 13:30-0500Body ytqxnd522.21 cmLisa Graham Other [employer] Other 11-09-2023 13:30-0500Body mass index (BMI) [Ratio] 30.48 kg/h2DigowujLisa Graham Other [employer] Other 11-09-2023 13:30-0500Body zjhrsjryrxj85.4 [degF] Lisa Graham Other [employer] Other 11-09-2023 13:30-0500Body vvqvve95.39 kgLisa Graham Other [employer] Other 11-09-2023 13:30-0500Diastolic blood ezhxskph12 mm[Hg] Lisa Graham Other [employer] Other 11-09-2023 13:30-2675NtV5% (BldA) [Mass fraction]94 % Lisa Graham Other [employer] Other 11-09-2023 13:30-0500Systolic blood fenvwjup272 mm[Hg] Lisa Graham Other [employer] Other 08-23-2023 14:30-0400Body .21 cmMattjose Graham Other [employer] Other 08-23-2023 14:30-0400Body mass index (BMI) [Ratio] 30.52 kg/b1Oqwkjtwkaiser Graham Other [employer] Other 08-23-2023 14:30-0400Body .48 kgMakaiser Graham Other [employer] Other 08-23-2023 14:30-0400Diastolic blood iwzahtmj89 mm[Hg] Lisa Graham Other [employer] Other 08-23-2023 14:30-0400Respiratory rate20 /minMakaiser Graham Other [employer] Other 08-23-2023 14:30-5461ZmF0% (BldA) [Mass fraction]95 % Lisa Graham Other [employer] Other 08-23-2023 14:30-0400Systolic blood liyyeruo435 mm[Hg] Lisa Graham Other [employer] Other 08-21-2023 13:00-0400Body zputyr098.21 Tj Llamas Other [employer] Other 08-21-2023 13:00-0400Body mass index (BMI) [Ratio]30.3 kg/m2Marco Antonio Reneener Other [employer] Other 08-21-2023 13:00-0400Body vqkiyr53.94 kgRystephanie Avilezovanner Other [employer] Other 08-21-2023 13:00-0400Diastolic blood nacdingn94 mm[Hg] Marco Antonio Llamas Other [employer] Other 08-21-2023 13:00-0400Systolic blood nkqrufpu923 mm[Hg] Marco Antonio Llamas Other [employer] Other 06-05-2023 14:00-0400Body jarfpo537.21 cmMakaiser Graham Other [employer] Other 06-05-2023 14:00-0400Body mass index (BMI) [Ratio] 31.28 kg/n4ZcbcoeeLisa Graham Other [employer] Other 06-05-2023 14:00-0400Body .34 kgMakaiser Graham Other [employer] Other 06-05-2023 14:00-0400Diastolic blood uraduhna78 mm[Hg] Lisa Graham Other [employer] Other 06-05-2023 14:00-0400Respiratory rate20 /minMakaiser Graham Other [employer] Other 06-05-2023 14:00-3111FhD0% (BldA) [Mass fraction]95 % Lisa Graham [facility] Other 06-05-2023 14:00-0400Systolic blood gyruaxhh534 mm[Hg] Lisa Graham [facility] Other 11-30-2022 14:00-0500Body dpfnuv852.21 cmRichkeyonna Duffy Other [employer] Other 11-30-2022 14:00-0500Body mass index (BMI) [Ratio] 30.18 kg/g9FdgigbkSebastien Duffy Other [employer] Other 11-30-2022 14:00-0500Body .66 kgSebastien Duffy Other [employer] Other 11-30-2022 14:00-0500Diastolic blood offbrdmc25 mm[Hg] Sebastien Duffy Other [employer] Other 11-30-2022 14:00-0500Respiratory rate20 /minSebastien Duffy Other [employer] Other 11-30-2022 14:00-2063FdX9% (BldA) [Mass fraction]97 % Sebastien Duffy Other [employer] Other 11-30-2022 14:00-0500Systolic blood knwuolns174 mm[Hg] Sebastien Duffy Other [employer] Other 09-06-2022 14:45-0400Body .21 Devontehristopher Betzy Other [employer] Other 09-06-2022 14:45-0400Body mass index (BMI) [Ratio] 30.85 kg/x1Swuwqyhynzb Betzy Other [employer] Other 09-06-2022 14:45-0400Body bttkhibrxex44.3 [degF] Christmaiker Betzy Other [employer] Other 09-06-2022 14:45-0400Body swekkj95.3 kgChristopher Betzy Other [employer] Other 09-06-2022 14:45-0400Diastolic blood vcjogyiv77 mm[Hg] Christmaiker Betzy Other [employer] Other 09-06-2022 14:45-0400Respiratory rate20 /min Christopher Betzy Other [employer] Other 09-06-2022 14:45-1158WyY5% (BldA) [Mass fraction]98 % Christmaiker Betzy Other [employer] Other 09-06-2022 14:45-0400Systolic blood mm[Hg] Christopher Betzy Other [employer] Other 07-21-2022 11:00-0400Body .21 cmMattjose Graham Other [employer] Other 07-21-2022 11:00-0400Body mass index (BMI) [Ratio] 31.11 kg/y8Vlllzcajose Graham Other [employer] Other 07-21-2022 11:00-0400Body iosavo80.93 kgMattjose Graham Other [employer] Other 07-21-2022 11:00-0400Diastolic blood mm[Hg] Lisa Graham Other [employer] Other 07-21-2022 11:00-0400Respiratory rate20 /minMattjose Graham Other [employer] Other 07-21-2022 11:00-5022KwP2% (BldA) [Mass fraction]96 % Lisa Graham Other [employer] Other 07-21-2022 11:00-0400Systolic blood mm[Hg] Lisa Gladys Other [employer] Other 06-02-2022 12:30-0400Body etdkbw090.21 cmChristopher Betzy Other [employer] Other 06-02-2022 12:30-0400Body mass index (BMI) [Ratio] 31.04 kg/r7Vdomwanlvgi Betzy Other [employer] Other 06-02-2022 12:30-0400Body qnqiecaxhfo06.1 [degF] Christopher Betzy Other [employer] Other 06-02-2022 12:30-0400Body dnhtyg58.75 kgChristopher Betzy Other [employer] Other 06-02-2022 12:30-0400Diastolic blood onoxfoob78 mm[Hg] Christopher Betzy Other [employer] Other 06-02-2022 12:30-0400Respiratory rate20 /min Christopher Betzy Other [employer] Other 06-02-2022 12:30-0892CpE6% (BldA) [Mass fraction]98 % Christopher Betzy Other [employer] Other 06-02-2022 12:30-0400Systolic blood msrfpsif814 mm[Hg] Christopher Betzy Other [employer] Other 05-16-2022 14:00-0400Body zjwxoe605.21 cmChristopher Betzy Other [employer] Other 05-16-2022 14:00-0400Body mass index (BMI) [Ratio] 30.85 kg/x9Ikaptwsnlax Betzy Other [employer] Other 05-16-2022 14:00-0400Body azrclmqgqyn64.6 [degF] Christopher Betzy Other [employer] Other 05-16-2022 14:00-0400Body abjvvy36.3 kgChristopher Betzy Other [employer] Other 05-16-2022 14:00-0400Diastolic blood rajuzqyf29 mm[Hg] Christopher Betzy Other [phone] Other 05-16-2022 14:00-0400Respiratory rate20 /min Piyush Bo Other [employer] Other 05-16-2022 14:00-2035WtL1% (BldA) [Mass fraction]97 % Piyush Bo Other [employer] Other 05-16-2022 14:00-0400Systolic blood dwqnejsr962 mm[Hg] Angelandi Bo Other [employer] Other 05-12-2022 15:00-0400Body pxdypt191.21 cmCnani Veloz Other [employer] Other 05-12-2022 15:00-0400Body mass index (BMI) [Ratio] 30.48 kg/r9Jloifoc Magdiel Other [employer] Other 05-12-2022 15:00-0400Body zqjygp29.39 kgTeto Ditty Other [employer] Other 05-12-2022 15:00-0400Diastolic blood dotdvunu89 mm[Hg] Teto Ditty Other [employer] Other 05-12-2022 15:00-0400Systolic blood mm[Hg] Teto Ditty Other [employer] Other 05-09-2022 14:30-0400Body .21 cmMatthew Gladys Other [employer] Other 05-09-2022 14:30-0400Body mass index (BMI) [Ratio] 30.74 kg/o1QlaweddLisa Graham Other [employer] Other 05-09-2022 14:30-0400Body iooxne28.03 kgLisa Graham Other [employer] Other 05-09-2022 14:30-0400Diastolic blood ebfafckt13 mm[Hg] Lisa Graham Other [employer] Other 05-09-2022 14:30-0400Respiratory rate18 /minMakaiser Graham Other [employer] Other 05-09-2022 14:30-3192WpX1% (BldA) [Mass fraction]98 % Lisa Graham Other [employer] Other 05-09-2022 14:30-0400Systolic blood geakguob827 mm[Hg] Lisa Graham Other [employer] Other 03-03-2022 15:15-0500Body gylduo108.21 cmMakaiser Graham Other [employer] Other 03-03-2022 15:15-0500Body mass index (BMI) [Ratio] 31.04 kg/r9RxlgufbLisa Graham Other [employer] Other 03-03-2022 15:15-0500Body dmbyowwzwij26.4 [degF] Lisa Graham Other [employer] Other 03-03-2022 15:15-0500Body ibwtfi45.75 kgLisa Graham Other [employer] Other 03-03-2022 15:15-0500Diastolic blood tuaoakgv92 mm[Hg] Lisa Wolffmer Other [employer] Other 03-03-2022 15:15-0500Respiratory rate18 /minMattjose Gladys Other [employer] Other 03-03-2022 15:15-8454FeS5% (BldA) [Mass fraction]96 % Lisa Gladys Other [employer] Other 03-03-2022 15:15-0500Systolic blood pqohciwv587 mm[Hg] Lisa Gladys Other [employer] Other 11-17-2021 14:00-0500Body raqweg376.21 cmCameron Ditty Other [employer] Other 11-17-2021 14:00-0500Body mass index (BMI) [Ratio] 31.78 kg/b6Ruphife Ditty Other [employer] Other 11-17-2021 14:00-0500Body jsbobz99.57 kgCameron Ditty Other [employer] Other 11-15-2021 14:00-0500Body .21 cmChristopher Betzy Other [employer] Other 11-15-2021 14:00-0500Body mass index (BMI) [Ratio] 31.78 kg/k7Mqxuiigwaay Betzy Other [employer] Other 11-15-2021 14:00-0500Body sjudyhjiqqv33.7 [degF] Piyush Weemsdano Other [employer] Other 11-15-2021 14:00-0500Body .57 kgChristop Betzy Other [employer] Other 11-15-2021 14:00-0500Diastolic blood dekzlmuw84 mm[Hg] Christmaiker Betzy Other [employer] Other 11-15-2021 14:00-0500Respiratory rate20 /min Christmaiksarah WeemsBetzy Other [employer] Other 11-15-2021 14:00-0976MbI8% (BldA) [Mass fraction]98 % Christmaiksarah WeemsBetzy Other [employer] Other 11-15-2021 14:00-0500Systolic blood mm[Hg] Goldsarah WeemsBetzy Other [employer] Other Encounters Encounter DateEncounter TypeCare ProviderFacilityStart: 55-61-1260smgxsehxab DOLORES MARSHALLANICFacility:[facility]tart: 06-08-2025 End: 78-46-0059Loclfdq encounter procedureEmmanuelle Tipton MD-Electrodiagnostics Work Phone: Start: 06-08-2025 End: 60-88-0237diuyoobjkvHeqgviq N Widmer DO Work Phone: [phone]-RljxwnlycwwejulojiOzikf: 29-13-1405wmiayleojzDBXDPG C STEPANICFacility:[facility]art: 05-30-2025 End: 40-96-9803Fduwavh encounter procedureTerastephanie Jernigan FINISHING RANGE SUPERVISOR-[facility] Work Phone: Start: 05-30-2025 End: 42-68-9509fqhkiqkcteOmuacot N Gladys DO Work Phone: [facility]Start: 05-28-2025 End: 10-86-0322Hytnjpg encounter procedureTerastephanie Jernigan FINISHING RANGE SUPERVISOR-[facility] Work Phone: Start: 05-28-2025 End: 34-70-5120enjwupqofjGaxgxbx N Gladys DO Work Phone: [facility] HospitalStart: 05-28-2025 End: 92-55-4220zoxdmrpmyrEldjgdu N Gladys DO Work Phone: [phone]-Hvvdicjpf Health GastroStart: 05-28-2025 End: 15-85-2690Vpmpxeh encounter procedureMarco Antonio Jernigan [facility] Work Phone: Start: 05-09-2025 End: 82-79-9572gjefkvtimsVfsbktd N Gladys DO Work Phone: [facility] Work Phone: Start: 05-09-2025 End: 17-21-7199Pkofepn encounter procedureSebastien Duffy FINISHING RANGE SUPERVISORSil[facility] Work Phone: Start: 05-02-2025 End: 76-10-4379nrqujbnzluFsoteav N WidmerFacility:[facility]tart: 34-47-7503Dva-patient / Non-visitTristin Arciniega-Heart Rhythm ClinicStart: 04-30-2025 End: 60-59-1796Quzlir outpatient visit 10 minutesAndrea Daley MD Work Phone: [facility]ito-Urinary SurgeonsComment on above:Renal angiomyolipoma (Primary Dx)Start: 04-30-2025 End: 04-11-6715zmpbbaxbdiDPYDRGP [facility] PPGStart: 04-20-2025 End: 41-67-4725WssrjtEsther Lockett MD Work Phone: cardiologyComment on above:Atrial fibrillation, unspecified type (HCC) (Primary Dx)Medication QuestionStart: 04-17-2025 End: 25-85-7861Aciwptcdp encounterJr. Dolores Massey DO Work Phone: [facility] OrthopaedicsComment on above:Dr Schmitt's office called ; return callStart: 04-14-2025 End: 01-50-7164Hriiijaemg Barrera Tipton MD Work Phone: Referring PhysicianComment on above:Atrial fibrillation, unspecified type (HCC) (Primary Dx)Start: 04-13-2025 End: 82-81-5655ijrdochlmvNlztwth N Widmer DO Work Phone: [facility] Work Phone: Start: 04-13-2025 End: 25-42-5017Wcnqhtt encounter Taj Jernigan APRN-[facility] Gastro Work Phone: Start: 04-11-2025 End: 98-76-6271qnknjvaiptCIDJIYN [facility] HospitalStart: 04-10-2025 End: 71-05-7963nnkftdyvfbShgouun N Widmer DO Work Phone: [facility] Work Phone: Start: 04-10-2025 End: 71-97-6324Oelidwz encounter William Tipton MD-[facility] Cardiology Work Phone: Start: 04-04-2025 End: 11-39-6342Utacfj flowsheetJr. Dolores Hopkins Bryson DO Work Phone: [facility]opaedicsStart: 04-04-2025 End: 00-04-9027Dokhul flowsheetJr. Dolores Marshallcaron DO Work Phone: [facility] OrthopaedicsStart: 04-04-2025 End: 43-11-3957Kuhjsc outpatient visit 40 minutesJr. Dolores Hopkins Bryson DO Work Phone: NOM[facility] OrthopaedicsComment on above:Primary osteoarthritis of left knee (Primary Dx); Acute pain of left knee; PacemakerStart: 04-04-2025 End: 76-43-4710opkjbezcuqYT., DOLORES Romero AvailableStart: 03-19-2025 End: 13-95-1633Cyzpzf flowsheetBartolo Ramírez MD Work Phone: noms NEUROLOGYStart: 03-19-2025 End: 05-04-8770Wcjqsu flowsheetBartolo Ramírez MD Work Phone: noms NEUROLOGYStart: 03-19-2025 End: 77-28-7390Udgbgo outpatient visit 25 minutesBartolo Ramírez MD Work Phone: [facility] NeurologyComment on above:Cervical radiculopathy (Primary Dx); Syrinx, persistent central canal (HCC); Idiopathic progressive neuropathyStart: 03-19-2025 End: 21-03-1484xueottezueWZSUVEA W BAUERNot AvailableStart: 03-14-2025 End: 37-21-2902Ewsdrhf encounter procedureMattjose Samayoa PA-C-[facility] [place] Work Phone: Start: 03-14-2025 End: 50-29-1511joywsuavgbPapqbbp N Widmer DO Work Phone: [facility] Work Phone: Start: 02-22-2025 End: 42-48-4552Brdhckqpy encounterGardenia Ford RNCardiologyComment on above: Remote Pacemaker Follow UpStart: 01-31-2025 End: 74-90-0843cwgcxhoyquBzpnyiz N WidmerFacility:[facility] Hospitaltart: 57-08-8318Crh-patient / Non-visitTristin Arciniega-Heart Rhythm ClinicStart: 01-22-2025 End: 88-92-9894Ukcfhju encounter Marilee Duffy APRN-[facility] Work Phone: Start: 01-12-2025 End: 14-34-2648Etzbsgn encounter procedureLisa Graham DO Work Phone: [facility] [place] Work Phone: Start: 01-12-2025 End: 21-10-6267vtqggmeiboHqedlcl N Widmer DO Work Phone: [facility] Work Phone: Start: 12-27-2024 End: 62-95-6410ByeoksUecmxbqxeo M Graziani NP Work Phone: [facility] NEURO 210Comment on above:Cervical radiculopathyStart: 12-24-2024 End: 32-10-8260TpegbnRnvmj Sroubek MD Work Phone: CardiologyComment on above:Refill RequestStart: 12-11-2024 End: 38-87-1178Kugxcqn encounter procedureGarland Lockett MD Work Phone: CardiologyComment on above:Pacemaker (Primary Dx); AF (paroxysmal atrial fibrillation) (HCC)Start: 12-11-2024 End: 75-91-7323Xvepapilop hospital visit by physicianDevice Clinic Work Phone: CardiologyComment on above:Pacemaker reprogramming/check [Z45.018]Start: 12-11-2024 End: 04-02-1455yagdfywncgSDTJGMCTran Hart:[facility] Start: 12-08-2024 End: 34-33-6079Ynxcxk flowsheetLisa SMITH Work Phone: noms [facility] ORTHOPAEDICSStart: 12-08-2024 End: 29-29-3990Pbokxj flowsheetLisa SMITH Work Phone: noms FB ORTHOPAEDICSStart: 12-08-2024 End: 50-85-1363Bdhxgi outpatient visit 25 minutesMattjose SMITH Work Phone: noms FB ORTHOPAEDICSComment on above:Acute pain of left knee (Primary Dx); Primary osteoarthritis of left knee; Instability of left knee joint; Effusion of left kneeStart: 12-08-2024 End: 03-78-9349bbvosxjzbvHREDNXF J MEYERNot AvailableStart: 11-08-2024 End: 13-73-1693Kfzxqd flowsheetJr. Dolores Massey DO Work Phone: [facility] ORTHOStart: 11-08-2024 End: 10-97-0553Kfauyf flowsheetJr. Dolores Massey DO Work Phone: [facility] ORTHOStart: 11-08-2024 End: 28-82-3948Dbhoaj outpatient visit 25 minutesJr. Dolores Massey DO Work Phone: noms [facility] ORTHOComment on above:Impingement syndrome of left shoulder (Primary Dx); Pain and swelling of left shoulderStart: 11-08-2024 End: 29-16-3113byvkedydeiIN., DOLORES Romero AvailableStart: 10-12-2024 End: 66-93-5547bjvbbuuykcCgspwkd N Widmer DO Work Phone: [facility] Work Phone: Start: 10-12-2024 End: 26-42-1338Gmhbdmg encounter procedureLisa Graham DO Work Phone: [facility] Work Phone: Start: 08-07-2024 End: 08-42-8148Jkaowkrjt encounterCurtdionne Tapia MD Work Phone: cardiologyComment on above:AppointmentStart: 08-07-2024 End: 17-50-6913Vpnxpeq encounter procedureMattjose Graham DO Work Phone: [facility] Work Phone: Start: 07-19-2024 End: 10-81-3377Sumayo flowsheetJr. Dolores Massey DO Work Phone: noms S[facility] ORTHOStart: 07-19-2024 End: 58-58-7548Jsmmlq flowsheetJr. Dolores Massey DO Work Phone: noms [facility] ORTHOStart: 07-19-2024 End: 38-60-4255Lzcqgb outpatient visit 15 minutesJr. Dolores Massey DO Work Phone: noms SWS ORTHOComment on above:Acute pain of left knee Start: 07-19-2024 End: 64-00-3398swdnpxjihcXR., DOLORES MASSEYNot AvailableStart: 07-04-2024 End: 63-45-4892Okmtta Abigail Lockett MD Work Phone: CardiologyComment on above:Primary hypertension (Primary Dx); High degree atrioventricular block; Mild coronary artery disease; Left bundle branch block (LBBB) on electrocardiogram; Symptomatic bradycardia; Chronic obstructive pulmonary disease, unspecified COPD type (HCC); KATELYN (obstructive sleep apnea); Chronic diastolic congestive heart failure (HCC)Start: 06-29-2024 End: 97-45-9353Dsagha Bina Ramírez MD Work Phone: noms NEUROLOGYStart: 06-29-2024 End: 96-06-7470Qpkdta Bina Ramírez MD Work Phone: noms NEUROLOGYStart: 06-29-2024 End: 27-82-5897Tqqmyq outpatient visit 25 minutesBartolo Ramírez MD Work Phone: [facility] NEURComment on above:Traumatic syrinx (CMS/HCC) (Primary Dx); Muscle spasm; Cervical radiculopathyStart: 06-29-2024 End: 60-76-0151vznboxifjvCQEJJFP W BAUERNot AvailableStart: 06-27-2024 End: 27-00-0404Lbjjuy Abigail Lockett MD Work Phone: CardiologyComment on above:Patient UpdateStart: 05-22-2024 End: 33-26-9189qfexxvlmouNP Lisa Garham Work Phone: [facility] Work Phone: Start: 05-22-2024 End: 82-61-7582Kwvxolk encounter procedureDO Lisa Graham Work Phone: [facility] Work Phone: Start: 05-03-2024 End: 14-92-8216abcfpymudvZGRRCEF G. RASHIDProAltafca Silverdale HospitalStart: 05-01-2024 End: 29-45-6308rxkyegmrdgVU Lisa Graham Work Phone: [facility] Work Phone: Start: 05-01-2024 End: 15-54-5970Trkaati encounter procedureDO Lisa Graham Work Phone: [facility] Gastro[facility]ology Work Phone: Start: 04-24-2024 End: 43-81-3106xlrcxuwoipWE Matthew N Widmer Work Phone: [facility] Work Phone: Start: 04-24-2024 End: 02-22-7001Ellgrxq encounter procedureDO Lisa Graham Work Phone: [facility] [place] Work Phone: Start: 04-21-2024 End: 65-73-1659Hsvlph OnlyAudi Tapia MD Work Phone: cardiologyComment on above:Primary hypertension (Primary Dx)Start: 04-12-2024 End: 98-06-6360Odlvnsb encounter procedureNoms Aud Audiology Aid - Grazyna Paulino CI AUDComment on above:Sensorineural hearing loss (SNHL) of both ears (Primary Dx)Start: 04-12-2024 End: 37-43-6999kkiosasyknGO., STEPANICNot AvailableStart: 04-03-2024 End: 53-13-9336Qumxlt outpatient visit 25 minutesAndrea Daley MD Work Phone: [facility]-Urinary SurgeonsComment on above:UTI symptoms (Primary Dx); Renal angiomyolipoma; Urinary tract infection without hematuria, site unspecifiedStart: 03-29-2024 End: 49-04-6515Sgobol flowsheetBartolo Ramírez MD Work Phone: [facility] NEUROLOGYStart: 03-29-2024 End: 16-94-5124Ouugqw flowsEmelyn Ramírez MD Work Phone: noms NEUROLOGYStart: 03-29-2024 End: 07-33-5229Wdsobf outpatient visit 25 minutesBartolo Ramírez MD Work Phone: noms SWS NEURComment on above:Muscle spasm (Primary Dx)Start: 03-28-2024 End: 07-65-2159hkrypooqasMqyykymhqEast [facility] Work Phone: Start: 03-28-2024 End: 56-50-5792Shafhua encounter procedureAtrium Health [facility] Gastroenterology Work Phone: Start: 39-17-5039Cndfoyquz encounterAudi Tapia MD Work Phone: CardiologyComment on above:AppointmentStart: 35-59-2503Dclwjlcgt encounterAudi Tapia MD Work Phone: cardiologyComment on above:AppointmentStart: 92-13-3728Wau-patient / Non-visitAtrium Health Providence Physician [facility] Family Medicine [place] Work Phone: Start: 02-39-3274Rtc-patient / Non-visitAtrium Health Providence Physician [facility] Family [facility] [place] Work Phone: Start: 01-13-2024 End: 83-34-2834kawrbkhnfiBR Lisa Graham Work Phone: [facility] Work Phone: Start: 01-13-2024 End: 79-43-1270Feejose encounter procedureDO Lisa Graham Work Phone: [facility] [place] Work Phone: Start: 01-10-2024 End: 12-52-5843tykasvojpvXJ Lisa Graham Work Phone: [facility] Work Phone: Start: 01-10-2024 End: 56-15-0006Galbxqp encounter procedureDO Lisa Graham Work Phone: [facility] Pulmonary Disease Work Phone: Start: 10-11-8149Ehj-patient / Non-visitDO Lisa Graham Work Phone: [facility] [place] Work Phone: Start: 79-04-6502Ghxrme-up encounterGarland Lockett MD Work Phone: [facility] DepartmentStart: 00-28-9826Hassds OnlyAudi Tapia MD Work Phone: cardiologyComment on above:Primary hypertension (Primary Dx)Start: 33-47-8922Lzsnxqm encounter procedureGarland Lockett MD Work Phone: [facility] DepartmentStart: 11-29-2023 End: 34-11-6006gjcttdnmbfEN Lisa Graham Work Phone: [facility] Work Phone: Start: 11-29-2023 End: 19-28-3156Vpjwlcm encounter procedureDO Lisa Graham Work Phone: [facility] [place] Work Phone: Start: 97-46-3864Crtskbrsk encounterGarland Lockett MD Work Phone: CardiologyComment on above:Courtesy call (Device survey)Start: 85-55-5827Dbcmwjlgq encounterEmgarfield Cherry RNAMBULATORY NURSING I40Zfkbxkr on above:Post Dc Program Call - Needs Attn (Driving limitation question)Start: 88-57-1753Epuymcpmc encounterGarland Lockett MD Work Phone: CardiologyComment on above:Patient Question (Patient had device implanted last Thrusday and she states having swelling. Wants to know, if it is okay to use ice pack. Please call her at [phone].)Start: 20-25-0209Gmilaeu OutreachDajessenia Gutierrez [facility] Work Phone: pharmacyComment on above:Transition Of Care (TCM Pharmacy-Hospital discharge 11/05/23 )Follow Up Phone Call ( follow up call all clear. /)Start: 11-03-2023 End: 08-71-4890Epo-patient / Non-visitDO Lisa Graham Work Phone: [facility] [place] Work Phone: Start: 11-02-2023 End: 85-81-8029Vcx-patient / Non-visitDO Lisa Graham Work Phone: [facility] Cardiology Work Phone: Start: 11-01-2023 End: 43-97-6493Solsontbrm and management of inpatientDO Lisa Graham Work Phone: [facility] [place] [facility] Work Phone: Start: 49-21-6608pzcnscvuiou encounterDO Lisa Graham Work Phone: [facility] Work Phone: Start: 11-01-2023 End: 69-34-7892xlvmkbxtbkSF Lisa Graham Work Phone: [facility] Work Phone: Start: 11-01-2023 End: 37-30-0693Aqiixwx encounter procedureDO Lisa Graham Work Phone: [facility] Family Medicine [place] Work Phone: Start: 10-27-2023 End: 54-33-1947zoxbkknelwRI Lisa Graham Work Phone: [facility] Work Phone: Start: 10-27-2023 End: 45-21-8979Scqxahm encounter procedureDO Lisa Graham Work Phone: [facility]-Lab [place] Work Phone: Start: 10-27-2023 End: 68-33-5034fuurrolxttGanxwfiufProMedica [facility] Work Phone: Start: 10-27-2023 End: 77-90-0596Ihfvapf encounter procedureAtrium Health Providence Physician GroupP[facility]GR[facility] Family Medicine [place] Work Phone: Start: 10-25-2023 End: 38-48-3271Jdhkccmss Result EncounterBartolo Ramírez MD Work Phone: [facility] External Department UnsolicitedStart: 10-25-2023 End: 41-38-1509Tpbwxsyqi Result EncounterBartolo Ramírez MD Work Phone: noms External Department UnsolicitedStart: 10-11-2023 Non-patient / Non-visitFirelands Physician [facility] Work Phone: Start: 44-25-8167Qapcjp flowsheetLisa SMITH Work Phone: noms SWS ORTHOStart: 11-88-0725Lxxter flowsShayan SMITH Work Phone: noms SWS ORTHOStart: 83-92-2751YohdjxNpxbmzk W Bauer MD Work Phone: noms SWS NEURComment on above:Muscle spasmStart: 09-06-2023 End: 13-73-2162dmvzlqxlkyRKIY [facility] Hospitaltart: 08-04-2023 End: 85-13-5978eqgmkicdhmUdmy Scovanner Other noMonesbat Other Start: 36-50-6818Ohmdssxpz encounterMakaiser GrahamGagan [facility] Renitasaint elizabethyStart: 07-20-2023 End: 53-22-6141vxnbficgdaTyadkfdmmwc Betzy Other [facility] [employer] Other Start: 67-72-2163Ymplus outpatient visit 15 minutes Piyush Omalley Pulmonary DiseaseStart: 07-14-2023 End: 96-32-5119juabfrynmrDradahd Widmer Other noMonesbat Other Start: 12-85-0985Gkppdmsvp for general adult medical examination without abnormal findingsMakaiser GrahamTewksbury State [facility] Medicine [place] Start: 09-24-4042Mmqvqgy encounter procedureMakaiser Manuel Family Medicine [place]Start: 07-06-2023 End: 64-46-9426lkvaejxcisUnhbgos Widmer Other [facility] [employer] Other Start: 35-47-8082Wbsgjhxet encounterMakaiser Manuel Family Medicine [place] SpringsStart: 07-05-2023 End: 13-88-2965tamekkjcxuOL Lisa Graham Work Phone: [facility] Work Phone: Start: 07-05-2023 End: 28-91-6998Gytcaju encounter procedureDO Lisa Graham Work Phone: [facility]-Ultrasound [place] Work Phone: Start: 06-17-2023 End: 31-86-5135rciybnckpuOtshcux Widmer Other [facility] [employer] Other Start: 03-11-7931Mwaeex outpatient visit 15 minutes Lisa Manuel Family Medicine [facility] HospitalyStart: 91-04-3335Lixitlo encounter Micky Ramírez MD Work Phone: [facility] ChildrenStart: 05-25-2023 End: 44-52-9373kgdfkjtaoxDacurar Ditty Other [facility] [employer] Other Start: 06-99-9197Ehekyqecm encounterCameroclaudia Chow GastroenterologyStart: 05-18-2023 End: 71-64-2445busfoanxyqRdgefdz Widmer Other [employer] Other Start: 36-81-9213Zdtqnrakp encounterMakaiser Manuel Family Medicine [place]Start: 05-14-2023 End: 97-63-0811Qtetrbg encounter procedureDO Lisa Graham Work Phone: [facility] Work Phone: Start: 05-10-2023 End: 75-77-0086xqlvxmhiozZomftyr Widmer Other [employer] Other Start: 46-52-4943Pyelrghua encounterMatthew ScottG Family Medicine [facility] HospitalyStart: 04-21-2023 End: 78-97-3025wndcwkkqyzCscy Scovanner Other [facility] [employer] Other Start: 08-70-3675Shgldrcrw encounterRystephanie Muñiz GastroenterologyStart: 04-02-2023 End: 38-45-0758jwkhbphkzaDcophmn Widmer Other [facility] [employer] Other Start: 46-60-6354Oighrysdi encounterMatthew ScottG Family Medicine [place]Start: 03-31-2023 End: 52-56-3305Tndgdva encounter procedureDO Lisa Graham Work Phone: [facility]-Lab [facility] Hospitaltart: 03-31-2023 End: 07-69-1103oddzstqvgwDK Matthew N Widmer Work Phone: [facility] Work Phone: Start: 24-96-9467Osnhcx outpatient visit 25 minutes Lisa Manuel Family Medicine [facility] HospitalyStart: 03-29-2023 End: 93-68-1350cxokdycxbnXene Scovanner Other [place] [employer] Other Start: 72-74-1042Uacqzw outpatient visit 15 minutes Marco Antonio Muñiz GastroenterologyStart: 03-12-2023 End: 73-87-5431zdparbukwoKSHAFBZMount St. Mary Hospitaltart: 02-23-2023 End: 56-16-8312lithkjrtglByfxc Chaban Other [facility] [employer] Other Start: 82-36-5774Mfjfogexj encounterKamal ChabanFPG Pulmonary DiseaseStart: 02-22-2023 End: 62-22-0057gbjznqcuyeBVKDTDFYAdena Pike [facility] Start: 01-12-2023 End: 61-19-5643fiqilyhienKokkfqzemxh Betzy Other [facility] [employer] Other Start: 47-20-0400Penswdyxq encounterChristopher AvendanoFPG Referral CoordinatorStart: 01-11-2023 End: 84-10-0840hogadcfdgxNzilzkd Widmer Other [facility] [employer] Other Start: 71-58-6995Humtcx outpatient visit 25 minutes Lisa Manuel [facility] Medicine [place]Start: 12-28-2022 End: 96-98-3176scmhwgcslkUWHOXRR [facility] Campustart: 12-15-2022 End: 54-50-7997nubjfswrbhYN Matthew N Widmer Work Phone: [facility] Work Phone: Start: 12-15-2022 End: 25-35-9680Blzgeqt encounter procedureDO Lisa Graham Work Phone: [facility]-[address] Work Phone: Start: 35-18-1765Buznwjrwz encounterLisa Manuel Family Medicine [place]Start: 12-09-2022 End: 15-69-8567sanxhjmuraRC Matthew N Widmer Work Phone: [facility] Work Phone: Start: 12-09-2022 End: 74-73-5061Jlrpvzr encounter procedureDO Lisa Graham Work Phone: [facility]-X-Ray [facility] CtrStart: 10-22-2022 End: 87-97-2743owgnkexvczQgbxhnq Widmer Other [place] [employer] Other Start: 00-01-4090Hwijsagpk encounterMatthew WidmerFPG Family Medicine [facility] HospitaluskyStart: 10-04-2022 End: 73-83-7162gphiyjheobQWCSI SANKETFacility:Z9Zajhr: 08-11-2022 End: 79-75-0601qgdcanwmkfExbvhhy Widmer Other [place] [employer] Other Start: 66-48-9429Dckhkzdtp encounterMatthew WidmerFPG Family Medicine [facility] HospitalyStart: 07-23-2022 End: 01-80-4879ofyibtjkscUhqjzuc Gladys Other [facility] LouisSt[employer] Other Start: 19-10-3335Zigfdttxp encounterMatthew WidmerFPG Family Medicine [facility] HospitalyStart: 07-13-2022 End: 88-86-1195vuvmourukxWdaranb Ditty Other [facility] LouisSt[facility] [employer] Other Start: 64-22-9845Dlhzuwvgi encounterCameron DittyFPG GastroenterologyStart: 07-10-2022 End: 44-57-8110oypavaaunjLilhigw Ditty Other [employer] Other Start: 26-31-1013Ixorwhdcl encounterCameron DittyFPG GastroenterologyStart: 07-08-2022 End: 85-99-8675jnyynalmngWsebpzy Binks Other [place] [employer] Other Start: 86-21-5966Xpypyh outpatient visit 15 minutes Sebastien DuffyAVENIR [facility] Family [facility] HospitalyStart: 07-07-2022 End: 91-70-2361auepoenebqNCBCPRM WIDMERFacility:G1Omxwa: 06-01-2022 End: 98-49-1554qhosqwhwylGazjiae Binks Other [place] [employer] Other Start: 09-27-6103Iktnkkacj encounterRichard CliveAVENIR [facility] Family [facility] HospitalyStart: 05-25-2022 End: 25-81-5778jtzfzyjckuWgpcwmq Ditty Other [place] [employer] Other Start: 65-03-4265Pwkjurvkc encounterCameron PaulyFPG GastroenterologyStart: 74-50-6148Znprsgtxs encounterSelfOphthalmologyComment on above:Patient QuestionStart: 04-27-2022 End: 12-99-7306ipdarmpzthXljezbu Binks Other [place] [employer] Other Start: 79-28-9873Vxvmdhyat encounterRichkeyonna CliveG [facility] HospitalyStart: 04-14-2022 End: 27-03-1083ulqdiapgdtErwlgsjuxvy Betzy Other [facility] [employer] Other Start: 21-38-0974Lxcsrn outpatient visit 15 minutes Piyush BoFPG Pulmonary DiseaseStart: 02-26-2022 End: 20-51-9298fyifoucugfCuqllaw Widmer Other [facility] [employer] Other Start: 54-15-4789Uawygtize for other preprocedural examinationMattw GladysAVENIR [facility] Family [facility] HospitalyStart: 34-42-2396Nghftm consultation new/estab patient 40 minMatthew WidmerFPG Family Medicine [place] Start: 02-25-2022 End: 52-92-0622nwvvdahnmpYdzjtvejmrs Betzy Other noQraved [employer] Other Start: 94-08-1340Sjiaotvdr encounterChristopher AvendanoFPG Pulmonary DiseaseStart: 02-16-2022 End: 05-79-6215lqrwbcfcwtHcehazh Ditty Other noQraved [employer] Other Start: 57-72-9707Hfwcdxszp encounterCameron DittyFPG GastroenterologyStart: 01-21-2022 End: 24-38-8476uvsmvcljxdAssmjycnbxt Betzy Other noQraved [employer] Other Start: 50-09-0945Xzksfyrzr encounterChristopher AvendanoFPG Pulmonary DiseaseStart: 01-16-2022 End: 35-38-2798xkiidigydkGhanwfu Gladys Other [facility] [employer] Other Start: 61-29-7284Jbwnpplka encounterMatthew WidmerFPG Family [facility] ClintonStart: 01-08-2022 End: 51-49-0149qhdcwgroocDdeapsmnzml Betzy Other [facility] [employer] Other Start: 89-95-4437Njiocj outpatient visit 15 minutes Christopher AvendanoFPG Pulmonary DiseaseStart: 81-01-8022canrvnpgiwMAXFETZ WIDMERFacility:O7Mlfwq: 01-01-2022 End: 36-10-5457vkwarxloseBwbwmzi Gladys Other noMonesbat Other Start: 03-80-3427Edrcxfqut encounterMatthew WidmerFPG Family Medicine [place]Start: 12-31-2021 End: 23-09-4829cejhvyoheoAWOGSZF WIDMERFacility:E7Mfrrc: 12-22-2021 End: 86-09-6655durtxgajjgAqkeylgiyls Betzy Other noQraved [employer] Other Start: 30-41-2665Txiqnv outpatient visit 25 minutes Angelmaiksarah WeemsdanoFPG Pulmonary DiseaseStart: 12-18-2021 End: 75-03-7685nzsjzofpadPwmnlab Ditty Other [facility] [employer] Other Start: 11-86-0597Ltslhap encounter procedureCameron DittyFPG GastroenterologyStart: 12-15-2021 End: 38-94-0025luyfpodenlSvuewsx Gladys Other [facility] [employer] Other Start: 57-06-1035Knbosi outpatient visit 25 minutes Lisa GladysFPG Family Medicine [place]Start: 12-12-2021 End: 32-44-4019lartpzzgdvBDQWXWD CARLOSERFacility:T5Kkcsl: 12-04-2021 End: 36-01-2181htckvgxhdnSixlmvy Gladys Other noQraved [employer] Other Start: 02-00-0935Ogzlsadwj encounterMatthew WidmerFPG Family Medicine [facility] ClintonStart: 10-20-2021 End: 10-89-8372wipjkhxglySxqpjit Ditty Other noQraved [employer] Other Start: 05-49-2985Pfmbistnq encounterCameron DittyFPG GastroenterologyStart: 10-09-2021 End: 94-65-9262htzeihunehKyojxpn Gladys Other noMonesbat Other Start: 14-62-8040Ojnicg outpatient visit 15 minutes Lisa GladysFPG Family Medicine [place]Start: 09-03-2021 End: 09-60-6453rnvjiyvlkrVfgvjto Gladys Other [place] [employer] Other Start: 48-44-0491Zipxneynv encounterMatthew WidmerFPG Family Medicine [place]Start: 07-18-2021 End: 48-30-3631kucigulagbYvumtsr Ditty Other [place] [employer] Other Start: 88-26-9399Zerkeoani encounterCameron DittyFPG GastroenterologyStart: 07-14-2021 End: 30-22-1879bnccviralhPvqanwx Gladys Other [place] [employer] Other Start: 48-18-2336Tghjzvtdw encounterMatthew WidmerFPG Family Medicine [place]Start: 07-07-2021 End: 63-92-9077fufcmzqpbmFnagsyr Gladys Other [place] [employer] Other Start: 89-07-7498Swkfntokk encounterMatthew WidmerFPG Family Medicine [place]Start: 06-25-2021 End: 40-61-5595szrgdxbgxgFkcdblo Ditty Other [place] [employer] Other Start: 36-55-9664Faglssp encounter procedureCameron DittyFPG GastroenterologyStart: 06-23-2021 End: 76-06-9166jidvyxlaytPhfktnjxkjx Betzy Other [place] [employer] Other Start: 25-97-3176Vdmstb outpatient visit 15 minutes Piyush BoFPG Pulmonary DiseaseStart: 06-11-2021 End: 97-80-5427ckogsxrvbqBebtxza Widmer Other [facility] [employer] Other Start: 90-32-8945Bxaqrrzqi encounterMattjose GrahamFPG [facility] CareStart: 75-89-0124Tjgeqdy encounter statusSebastien Quesada Work Phone: [facility] Work Phone: Procedures DateProcedureProcedure DetailPerforming ClinicianStart: 66-57-4065Kpmnou-up visitFollow-upMICHAEaRmbo Farah RASHIDStart: 22-34-0037XKB of left kneeLisa Graham DO Work Phone: Start: 31-16-5977EU pre/post mri xrayLisa Graham DO Work Phone: Start: 26-53-9672Zfqakfkfpbtzt species cultureMarcusttjose Graham DO Work Phone: Start: 81-63-7210Zazzqhwvgsb coli shiga-like detection Lisa Graham DO Work Phone: Start: 44-02-5778Faazr culture for bacteriaLisa Graham DO Work Phone: Start: 89-16-4670Cjtpya dev eval implantable subq lead dfb [facility] Imaging [place] ProviderStart: 89-95-2027LDOT / SPLINT / FX Lisa SMITH Work Phone: Start: 00-09-9753Hyuyuwlnih examination knee 1/2 views Lisa SMITH Work Phone: Start: 18-79-2338Tzrnuoorlf examination knee 1/2 views Jr. Dolores Massey DO Work Phone: Start: 59-93-0789Bjzjjnfvv mammography of bilateral breastsDO Lisa Graham Work Phone: Start: 40-28-8730Mpiph chest X-rayDO Lisa Graham Work Phone: Start: 27-18-2356Kijnc dip stick/tablet rgnt auto w/o microscopyAndrea Daley MD Work Phone: Start: 85-24-0677KHZNAPITD CLINIC Carey Lockett MD Work Phone: Start: 68-48-7802Sdaac chest X-rayDO Lisa Graham Work Phone: Start: 40-99-0084DL CHEST 2VBartolo Ramírez MD Work Phone: Start: 85-64-7199Ivhsiihqc mammography of bilateral breastsDO Lisa Graham Work Phone: Start: 39-73-2848EF of chest without contrastDO Lisa Graham Work Phone: Start: 12-16-1360Rvwgy chest X-rayDO Lisa Graham Work Phone: Plan of Treatment DateCare ActivityDetailAuthorStart: 99-25-6961Gcvqlirr ScreeningDiabetes ScreeningFirelands Regional Medical Centertart: 10-28-2026 End: 30-98-8471Jkexgmv encounter xlnhfjfeq88/22/2027 1:00 PM EDT Office Visit [facility] [address] [place] [address] [place] [address] Andrea Daley MD [address] [place] [address] [facility] SurgeonsStart: 49-60-0117Skzdd BMI ScreeningAdult BMI Screening [facility] SystemStart: 06-48-0318Fgojcsy ScreeningTobacco Screening [facility] Healthtart: 04-30-2026 End: 75-95-8181JO RetroperitoneumUltrasound retroperitoneal complete Imaging Routine Renal angiomyolipoma Expected: 04/30/2026, Expires: 04/16/2027[facility] Work Phone: Comment on above:Expected: 04/30/2026, Expires: 04/16/2027Start: 10-15-2025 End: 63-76-4139Eehkzhl encounter svhjzdpxa04/09/2026 4:30 PM EDT Office Visit Cardiology [address] [id number] Garland Lockett MD [address] [place] [address] Dx:A-FibCardiologyComment on above:Dx:A-FibStart: 10-15-2025 End: 49-92-8508khgecqldoq98/09/2026 3:30 PM EDT Procedure Cardiology [address] [place] [address] Dx:A-FibCardiologyComment on above: Dx:A-FibStart: 06-21-2025 End: 15-47-5413Vvmwdmt encounter gdzwwcacp64/13/2025 1:00 PM EST Office Visit [facility] [address] [address] Bartolo Ramírez MD [address] [facility] [address] [address] [facility] NeurologyStart: 04-11-2025 End: 44-53-1018Hemprzd encounter fltsvofcj90/03/2025 1:45 PM EDT Office Visit [facility] [address] [place] [address] [address] [facility] [place] [address] Andrea Daley MD [address] [place] [address] [facility] SurgeonsStart: 89-93-5635Ouvvgua referralBarney Children'S [facility] Work Phone: Start: 43-10-9980G[facility]vrzlpjjGen[facility] Start: 68-43-9414MUXBN-19 Vaccine ( season)COVID-19 Vaccine ( season)[facility] SystemStart: 34-19-5498Wpkwganlq vaccination [facility] Centertart: 04-04-2025 End: 25-11-7816Brlwltn encounter procedureNOMS Moses OrthopaedicsComment on above:ArrivedStart: 27-22-5621Bnact BMI ScreeningAdult BMI ScreeningMetroHealth [facility] SystemStart: 37-27-5671Ngelinv ScreeningTobacco ScreeningMetroHealth [facility] Center SystemStart: 04-03-2025 End: 69-92-9131QT RetroperitoneumUltrasound retroperitoneal complete Imaging Routine Renal angiomyolipoma Expected: 04/03/2025 (Approximate), Expires: 03/20/2026ProSt. Anthony'S Hospital SystemComment on above:Expected: 04/03/2025 (Approximate), Expires: 03/20/2026Start: 03-19-2025 End: 33-97-9877Zavblos encounter cohkeyarp49/11/2025 1:40 PM EDT Office Visit [facility] [address] [address] Bartolo Ramírez MD [address] [facility] [address] [address] ArrivedPRASHANT [facility] Comment on above:ArrivedStart: 01-22-2025 End: 42-22-8369Uhtpyqj encounter /16/2025 3:45 PM EDT Appointment Cardiology [address] [place] [address] DX: Cardiac evaluationCardiologyComment on above:DX: Cardiac evaluationStart: 01-22-2025 End: 06-05-0486Pqyrkcd encounter hmyglyrmi47/16/2025 1:45 PM EDT Office Visit Cardiology [address] [place] [address] Audi Tapia MD [address] [place] [address] DX: Cardiac evaluationCardiologyComment on above:DX: Cardiac evaluation Start: 01-22-2025 End: 39-18-3697wwogncxoxx08/16/2025 1:00 PM EDT Results Only Cardiology [address] [place] [address] DX: Cardiac evaluationCardiology Comment on above:DX: Cardiac evaluationStart: 01-17-2025 End: 59-61-7068Ciryohu encounter bpxzyeyjx95/11/2025 1:30 PM EDT Office Visit [facility] [address] [place] [address] Jr. Dolores Massey, DO [address] [place] [address] [facility] ORTHOStart: 01-12-2025 Salmonella/Shigella Result 1Salmonella/Shigella Result 1FTrinity Health System West Campustart: 87-72-0469Nsfwlcccfk/Shigella ScreenSalmonella/Shigella ScreenGlenbeigh Hospitaltart: 01-10-2025 End: 33-16-1771Elzglob encounter kbpyzelel43/04/2025 1:30 PM EDT Office Visit [facility] [address] [place] [address] Jr. Dolores Massey, DO [address] [place] [address] [facility] ORTHOStart: 12-29-2024 End: 49-30-0391Zvkwnvd encounter wqswywbzv97/23/2025 11:30 AM EDT Office Visit [facility] [address] [facility] [address] Lisa Samayoa PA [address] [place] [address] [facility] ORTHOPAEDICSStart: 12-11-2024 End: 55-01-3450Jybumyy encounter procedureCardiologyComment on above:DEVICE CHECKDX:High degree atrioventricular block (11/03/2023)Start: 12-11-2024 End: 83-73-4814xeaezrcvlf66/05/2025 3:00 PM EDT Results Only Cardiology [address] [place] [address] EKGCardiologyComment on above:EKGStart: 12-08-2024 End: 62-74-6771NG Knee - left WO contrastMR knee left wo IV contrast Imaging Routine Acute pain of left knee Instability of left knee joint Expected: 12/08/2024 (Approximate), Expires: 12/08/2025[facility] Work Phone: Comment on above:Expected: 12/08/2024 (Approximate), Expires: 12/08/2025Start: 12-08-2024 End: 22-56-9170Lcewxrb encounter neoylulqc28/02/2025 10:00 AM EDT Office Visit [facility] [address] [place] [address] Lisa Samayoa, PA [address] [facility] [address] [place] [address] Acute pain of left knee (Primary Dx); Primary osteoarthritis of left kneeNOMS FB ORTHOPAEDICSComment on above:Acute pain of left knee (Primary Dx); Primary osteoarthritis of left kneeStart: 11-08-2024 End: 94-32-4527Ocfqapl encounter uqfabznwk77/02/2025 1:15 PM EDT Office Visit [facility] [address] [place] [address] Jr. Dolores Massey DO [address] [facility] [address] [place] [address] ArrivedNOANDERSON SANATORIUM ORTHOComment on above: ArrivedStart: 46-73-0082Mxbxa-19 Vaccine ( season)Covid-19 Vaccine ( season)[facility] Medical Centertart: 61-69-0900XnkcvsgnjGlenbeigh Hospitaltart: 10-02-2024 End: 37-79-8293Caxuqgd encounter hkqosbthn88/24/2025 2:00 PM EST Office Visit [facility] [address] [facility] [address] [place] [address] Bartolo Ramírez MD [address] [facility] [address] [place] [address] [place] [address] [facility] NEURStart: 09-04-2024 End: 59-22-3930Honmqzs encounter nafuyfywx87/27/2025 2:15 PM EST Appointment Cardiology [address] [place] [address] CardevalCardiology Comment on above:Card evalStart: 09-04-2024 End: 89-58-9916Fjhqbsf encounter wgdggutpw33/27/2025 12:30 PM EST Office Visit Cardiology [address] [place] [address] AydwkhpflAudi Tapia MD [address] [place] [address] Card evalCardiologyComment on above:Card evalStart: 09-04-2024 End: 68-73-1216llhhcqnpgj29/27/2025 12:00 PM EST Results Only Cardiology [address] [place] [address] Usws EvalCardiologyComment on above:Card EvalStart: 16-51-0625Ynuifjk Directive DiscussionAdvance Directive DiscussionBoiceville ClinicStart: 01-01-2025Medicare Advantage Annual Wellness VisitMedicare Advantage Annual Wellness VisitBoiceville ClinicStart: 08-07-2024 Patient referralWayne Hospital Work Phone: Start: 07-19-2024 End: 85-50-5748Oklsrcw encounter procedureNOMS SWS ORTHOComment on above:Arrived Start: 06-29-2024 End: 47-24-0842Ekrlusz encounter procedureNOMS SWS NEURComment on above:Arrived Start: 05-08-2024 End: 23-14-1231Xipghtl encounter procedureCardiologyComment on above:Card eval Start: 05-08-2024 End: 78-22-3432xkmqxuamey95/30/2024 7:45 AM EDT Results Only Cardiology [address] [place] [address] Card evalCardiologyComment on above:Card evalStart: 96-62-4911Rpiub chest X-rayXR chest 2V*[facility]: 42-68-6264FF Chest 2 ViewsGenesis Hospital Start: 04-12-2024 End: 30-92-9496Vsfyjoz encounter rqasyifki40/04/2024 2:00 PM EDT Office Visit [facility] CI AUD [address] [facility] [address] [place] [id number] NOMS CI AUDStart: 79-98-5954Bpklx-19 Vaccine ( season)Covid-19 Vaccine ( season)[facility]: 64-24-8314Wanxn-19 Vaccine ( season)Covid-19 Vaccine ( season)[facility]: 04-09-2024 Influenza vaccinationFirelands Regional Medical Centertart: 04-03-2024 End: 95-44-0020QS RetroperitoneumUltrasound retroperitoneal complete Imaging Routine Renal angiomyolipoma Urinary tract infection without hematuria, site unspecified Expected: 04/03/2024, Expires: 04/03/2025[facility] Work Phone: Comment on above:Expected: 04/03/2024, Expires: 04/03/2025Start: 03-29-2024 End: 53-25-9558Myteovf encounter cvhkcmbuk27/21/2024 1:00 PM EDT Office Visit [facility] SWS NEUR [address] [facility] [address] [place] [address] Bartolo Ramírez MD [address] [facility] [address] [place] [address] [place] [address] ArrivedNOMS SWS NEURComment on above: ArrivedStart: 44-89-5268GsefytjurGlenbeigh Hospitaltart: 11-02-2023 Referral to cardiologistGlenbeigh Hospitaltart: 11-02-2023 Hospital admissionGlenbeigh Hospitaltart: 86-99-9265BQC 12 channel panelGlenbeigh Hospitaltart: 10-25-2023 End: 06-11-2853Ekhtgzv encounter /18/2024 1:40 PM EDT Office Visit [facility] NEUR [address] [place] [address] [place] [address] Bartolo Ramírez MD [address] [facility] [address] [address] [facility] NEURStart: 36-01-6377Qpqfn-19 Vaccine ( season)Covid-19 Vaccine ()[facility]: 15-15-8062Dpvkwlv Directive DiscussionAdvance Directive Discussion [facility]: 35-45-4170Zblmbrckxw Health ScreeningBehavioral Health ScreeningFirelands Regional Medical Centertart: 98-04-7660Dzduzfllzg AssessmentDepression AssessmentFirelands Regional Medical Centertart: 64-07-7697Msnkhwc ultrasonography of bilateral carotid arteriesUS carotid doppler [facility]: 04-41-5382Wkicudqpu vaccinationINFLUENZA (#1)[facility]: 08-09-2021 ADVANCE DIRECTIVE DISCUSSIONADVANCE DIRECTIVE DISCUSSIONFirelands Regional Medical Centertart: 84-26-9779MLPBVHPMOZ ASSESSMENTDEPRESSION ASSESSMENTFirelands Regional Medical Centertart: 30-15-8786GTOHOCJM SCREENDIABETES SCREENFirelands Regional Medical Centertart: 96-25-8228OZQV DENSITYBONE DENSITYFirelands Regional Medical Centertart: 58-41-0084Dlyx Risk ScreeningFall Risk ScreeningProSt. Anthony'S Hospital SystemStart: 14-45-9599Qcsanqopm for osteoporosisBone Density ScreeningFirelands Regional Medical Centertart: 74-89-1457YEOLKENHAVNT: 65+ (2 - PCV) PNEUMOCOCCAL: 65+ (2 - PCV)[facility]: 14-86-5221Wovvwszlhtzgae of varicella zoster vaccineZoster (Shingles) Vaccine (1 of 2)[facility]: 29-00-4562FZNKKVDB VACCINE (1 of 2)SHINGRIX VACCINE (1 of 2) [facility]: 05-60-0503SPEYUUFAD (FIT-DNA)COLOGUARD (FIT-DNA)[facility]: 93-94-5606RnpqqhxkvnaQTEKIQYRJYRDevdfdzvs ClinicStart: 11-13-1996 COLORECTAL CANCER SCREENINGCOLORECTAL CANCER SCREENINGFirelands Regional Medical Centertart: 11-08-2795PQ COLONOGRAPHYCT COLONOGRAPHYFirelands Regional Medical Centertart: 52-05-0364SIILF OCCULT BLOODFECAL OCCULT BLOODFirelands Regional Medical Centertart: 58-49-9124Tbpml panelLipid ScreeningFirelands Regional Medical Centertart: 31-14-3251CWUWH SCREENLIPID SCREENFirelands Regional Medical Centertart: 59-10-8987Oogauhobw for malignant neoplasm of colonSelect [facility] Start: 79-57-7034IEIXJDXVUTDPRPORZCHABZINFMHqbbajwqo ClinicStart: 1991 MammographyMAMMOGRAMFirelands Regional Medical Centertart: 48-36-5110Rxtuxcygc for malignant neoplasm of breastNOID HealthcareStart: 98-27-7552Wjvwhswvek acid therapyAlpha-1 Antitrypsin Deficiency ScreeningFirelands Regional Medical Centertart: 61-34-9467KGdL,Tdap and Td Vaccines (1 - Tdap)DTaP,Tdap and Td Vaccines (1 - Tdap)[facility]: 64-78-5684Jjyce microalbumin profileFirelands Regional Medical Centertart: 33-89-1142Wgfme BMI Follow Up PlanAdult BMI Follow Up PlanAtrium Healthtart: 26-19-1190Fblnhx PCP Team Chronic Disease VisitAnnual PCP Team Chronic Disease VisitFirelands Regional Medical Centertart: 79-53-4278Fgexchp ScreeningAnxiety ScreeningFirelands Regional Medical Centertart: 53-48-3646DJ Controlled (<130/80)BP Controlled (<130/80)[facility]: 04-99-4634Yoxtmfjkpc ScreeningDepression ScreeningFirelands Regional Medical Centertart: 01-12-7839Uflxzqvxl B surface antibody levelLDL CholesterolFirelands Regional Medical Centertart: 75-26-0882QGIOFTTLG C SCREENINGHEPATITIS C SCREENINGFirelands Regional Medical Centertart: 79-85-4609Shtfsapee C screeningHepatitis C ScreeningFirelands Regional Medical Centertart: 55-00-3728HxbqhxaaooVlpeehokxvKcjeiclqv Clinic Start: 62-07-1570Dbrpahgppi ScreeningDepression ScreeningAdams County Regional [facility] Center Start: 79-30-4623WFQYG-19 VACCINE (#1)COVID-19 VACCINE (#1)[facility] Start: 04-07-1952Medicare Annual Wellness VisitMedicare Annual Wellness Visit [facility]: 04-47-3195Wruovosib for malignant neoplasm of colonNOMS HealthcareBacteria identified in Stool by CultureGenesis Hospital End: 60-80-3964Qilwphxq identified in Urine by CultureUrine Culture Microbiology Routine Urinary tract infection without hematuria, site unspecified 14 for 12 Occurrences starting 04/03/2024 until 04/03/2025[facility] CenterComment on above:14 for 12 Occurrences starting 04/03/2024 until 04/03/2025ampylobacter coli+jejuni+upsaliensis DNA [Presence] in Stool by NNEKA with non-probe detection Genesis HospitalComprehenve metabolic 1999 panel - Serum or PlasmaGenesis HospitalComprehenformerly [facility] metabolic 1999 panel - Serum or PlasmaGenesis Hospital End: 20-59-1046LYE COMPLETEECG COMPLETE ECG Routine Primary hypertension 1 Occurrences starting 12/16/[address] [place] [address] Work Phone: comment on above:1 Occurrences starting 12/16/2023 until 12/15/2024 End: 70-54-3762PQW COMPLETEECG COMPLETE ECG Routine Primary hypertension 1 Occurrences starting 04/21/2024 until 04/21/2025[facility] Work Phone: comment on above:1 Occurrences starting 04/21/2024 until 04/21/2025 End: 15-60-7867IKJ COMPLETEECG COMPLETE ECG Routine Primary hypertension High degree atrioventricular block Mild coronary artery disease Left bundle branch block (LBBB) on electrocardiogram Symptomatic bradycardia Chronic obstructive pulmonary disease, unspecified COPD type (HCC) KATELYN (obstructive sleep apnea) Chronic diastolic congestive heart failure (HCC) 1 Occurrences starting 07/04/2024 until 07/04/2025[facility] Work Phone: Comment on above:1 Occurrences starting 07/04/2024 until 07/04/2025 End: 71-41-2262OLS COMPLETEECG COMPLETE ECG Routine Atrial fibrillation, unspecified type (HCC) 1 Occurrences starting 04/20/2025 until 04/20/2026 [facility] Work Phone: comment on above:1 Occurrences starting 04/20/2025 until 04/20/2026Escherichia coli enteropathogenic eae gene [Presence] in Stool by NNEKA with non-probeGenesis HospitalEscherichia coli enterotoxigenic ltA+st1a+st1b genes [Presence] in Stool by NNEKA withGenesis HospitalEscherichia coli O157 DNA [Presence] in Stool by NNEKA with non-probe detectionGenesis HospitalEscherichia coli Stx1 and Stx2 toxin stx1+stx2 genes [Presence] in Stool by NNEKA with non-probe detection Genesis HospitalGiardia lamblia Ag [Presence] in Stool by ImmunoassayGenesis HospitalInfectious agent genotype identificationGenesis HospitalMG Breast - bilateral Screening Genesis HospitalPatient EducationHeart Failure, Adult (DC) [facility] Work Phone: Patient referralWayne Hospital Work Phone: Plesiomonas shigelloides DNA [Presence] in Stool by NNEKA with non-probe detectionGlenbeigh Hospitalalmonella and Shigella sp identified in Stool by Organism specific cultureGlenbeigh Hospitalalmonella enterica+bongori DNA [Presence] in Stool by NNEKA with non-probe detectionGlenbeigh Hospitalhigella species+EIEC invasion plasmid antigen H ipaH gene [Presence] in Stool by NAAGenesis HospitalUS Heart TransthoracicGenesis Hospital Vibrio cholerae DNA [Presence] in Stool by NNEKA with non-probe detectionGenesis HospitalVibrio cholerae+parahaemolyticus+vulnificus DNA [Presence] in Stool by NNEKA with non-probe detectionAurora Health Care [facility] Immunizations Immunization DateImmunizationNotesCare WawforhaIdrwtqck20-91-7664RDBWR-79 (PFIZER) 12Y and olderMatthew Gladys DO Work Phone: [facility]09-29-2025influenza, high dose seasonal, preservative-freeMatthew Gladys DO Work Phone: [facility]09-14-2024COVID-19 (PFIZER) 12Y and olderMatthew Gladys DO Work Phone: [phone] [place], [place] 4771409-14-2024influenza, high dose seasonal, preservative-freeMatthew Gladys DO Work Phone: [phone] [place], [place] 4771409-14-2024influenza virus vaccine, unspecified formulationBartolo Ramírez MD Work Phone: [facility] ChildrenLlhyioutsv40-31-7489GXC, preF3, adj, pfDO Lisa Graham Work Phone: [phone] [place], [place] 4771409-21-2023COVID-19 Vaccine Pfizer - Documentation Purposes OnlyMatthew Gladys Other [facility]09-08-2023Flu Shot - Documentation Purposes OnlyMatthew Gladys Other [facility]09-08-2023influenza virus vaccine, unspecified formulationAudi Tapia MD Work Phone: c[facility] HospitalYedhiv54-43-2367qqgjzqvcc, seasonal, injectableRichard Clive Other [facility]09-20-2022Influenza, High-dose Seasonal, Quadrivalent, Preservative FreeBartolo Ramírez MD Work Phone: [facility] ChildrenNajjwvnejh24-14-1185JUCQZ-03 PfizerSebastien Duffy Other [facility]08-06-2022SARS-CoV-2, UnspecifiedBartolo Ramírez MD Work Phone: [facility] ChildrenLpanjtwezl22-65-5773ZUAZB-45 Vaccine Pfizer - Documentation Purposes OnlyChristopher Betzy Other [facility]10-09-2021SARS-CoV-2, UnspecHiro Ramírez MD Work Phone: [facility] ChildrenQdttemfrsn87-14-7861zmipmpbui, seasonal, injectableMatthew Gladys Other [facility]09-12-2021Influenza, High-dose Seasonal, Quadrivalent, Preservative FreeBartolo Ramírez MD Work Phone: [facility] ChildrenPhjeiddpdh81-94-0594ZNJKO-63 Vaccine Pfizer - Documentation Purposes OnlyMatthew Gladys Other [facility]03-09-2021SARS-CoV-2, UnspecifiedBartolo Ramírez MD Work Phone: [facility] ChildrenKkuaofjauf91-41-8178NAVC-YwG-7, Unspecified Bartolo Ramírez MD Work Phone: [facility] ChildrenAziwyjgpxz43-42-8884STQDJ-57 Vaccine Pfizer - Documentation Purposes OnlyMatthew Gladys Other [facility]09-30-2020influenza, high dose seasonal, preservative-freeBartolo Ramírez MD Work Phone: [facility] ChildrenEfimfroocc90-17-7902mlwjwrays, high dose seasonal, preservative-freeMatthew Gladys Other [employer] Other 0196298-74-7070mtajgtruk virus vaccine, unspecified formulationGenesis Hospital06-25-2020pneumococcal conjugate vaccine, 13 valentMatthew Gladys Other [employer] Other [id number]o polysaccharide vaccine, 23 valentMattjose Graham Other [place] [employer] Other 10019309-86-4047ivelhigoi, injectable, quadrivalent, preservative freeMattmartellw Gladys Other [facility]10-04-2019influenza, injectable, quadrivalent, preservative Jose A Ramírez MD Work Phone: [facility] ChildrenGycrcnmait88-53-7782pcmqwjzco, high dose seasonal, preservative-Jose A Ramírez MD Work Phone: [facility] ChildrenYusrusadmh48-35-7343jnbfvngovcgo conjugate vaccine, 13 valentRicdenise Duffy Other [place] [employer] Other 09-824914-03-5221mzxjccyqm, high dose seasonal, preservative-Jose A Ramírez MD Work Phone: [facility] ChildrenRctncjzpyb42-98-3775hxxxvcba influenza, intradermal, preservative Jose A Ramírez MD Work Phone: [facility] ChildrenPlbbdgufti14-52-7698wovhptavyxvp polysaccharide vaccine, 23 valentRicdenise Millerey Work Phone: [facility] Payers DatePayer CategoryPayerPolicy [id number] BLUE CROSS AND BLUE [facility] MEDICARE ADVANTAGE HMO [id number] 2023-[facility] [phone] [address] [place] [address] [id number] 2022Medicare (Managed Care)[id number] 2021Medicare [facility] MEDICARE Member Subscriber Plan / Payer (Effective 2020-Present) Name: Kimberly Everett Relation to Subscriber: Self Name: Kimberly Everett Payer ID: [id number] (NAIC) Group ID: [id number] Type: Not on file Address: [address] [place] [id number] 2016MedicaidMEDICAID [place] [id number] 2015-Present [phone] [address] [place], [place] [address]Medicaid [id number] 2008Medicare [id number] [id number] 2.16840.3.71911[id number] 2.840.1.788225.3.5[id number] 2.16840.1.406771.3.57[id number] 2.16840.1.669577.3.57[id number] 2.16840.1.663413.3.57[id number] 2.16840.1.574618.3.57[id number] 2.16.840.1.049708.3.57[id number] 2.16.840.1.911801.3.57[id number] 2.16.840.1.445079.3.57[id number] 2.16840.1.961160.3.57[id number] 2.16840.1.225239.3.57[id number] 2.840.1.986368.3.57[id number] 2.0.1.125976.3.57[id number] 2.840.1.990431.3.57[id number] 2.0.1.735025.3.57[id number] 2.840.1.048571.3.57[id number] 2.0.1.683222.3.57[id number] 2.840.1.511338.3.57[id number] 2.840.1.413983.3.57[id number] 2.840.1.89[id number] 2.16.840.1.3[id number] 2.16.840.1.751303.3.579.2.531 [id number] 2.16.840.1.3[id number] 2.16.840.1.6[id number] 2.16.840.1.363378.3.579.2.531 [id number] 2.16.840.1.9[id number] 2.16.840.1.6[id number] 2.16.840.1.188601.3.579.2.531 [id number] 2..840.1.942925.3.579.2.531 Social History DateTypeDetailFacilityUnknown if ever smokedArlington KonTEM Other Start: 08-19-2023 End: 29-94-4412Lzl Assigned At BirthArlington Kon[facility] Other Start: 12-18-2015 End: 97-52-6990Ibkwvaa smoking status NHISEx-smokerFirelands Regional Medical Centertart: 08-09-1982 End: 03-31-2883Yurqcib of tobacco useCurrent smokerFirelands Regional Medical Centertart: 08-09-1982 End: 47-53-0366Odlglfv of tobacco useCigarette SmokerFirelands Regional Medical Centertart: 12-18-2015 End: 18-15-6655Unbpqlctup smoked current (pack per day) - Snkujzyf8Hqzytuskz ClinicStart: 12-18-2015 End: 06-23-1738Wxafpwk use and exposureSmokeless tobacco non-userFirelands Regional Medical Centertart: 09-09-2016 End: 85-41-1560Tokqlro intakeCurrent non-drinker of alcohol (finding)[facility]ertart: 88-16-7705Zmp Assigned At BirthNot on fileFirelands Regional Medical Centertart: 92-01-6567Muk Assigned At BirthFeMarietta Osteopathic Clinictart: 69-34-0441Hyvsmbs smoking status NHISNever smoked tobaccoCACHE VALLEY H[facility]ITAL HealthcareStart: 08-19-2023 End: 38-47-6537Befwefx intakeEx-drinker (finding)NOM HealthcareStart: 19-29-2410Ptghkcs Commentcaffeine: 1-2 cups per dayCACHE VALLEY HOSPITAL HealthcareStart: 07-10-2012 End: 22-88-3255Wyyencmp Score (1-100), lower number is lower qsob23GdsgykfosFirelands Regional Medical Centertart: 03-14-2015 End: 40-10-3637NxjSuzthx (finding)[facility] Medical Equipment Procedure CodeEquipment CodeEquipment Original TextEquipment IdentifierDatesMesh Srg Parietex 16m38gp - [id number]: 70-17-8013Dxgl Tvt Prolene Blue 45x1.1cm Transvaginal Tape - [id number]: 03-56-4445055912 3830 Selectsecure Mri Surescan [id number]: 66-89-4180172828 5076 Capsurefix Novus [id number]_savRjaid: 95-99-1027137172 Bharti Xt Dr Mri W1dr01 [id number]_ujmSylml: 84-93-1529Vgjb Stravix 2x4cm - [id number] - [id number]_zezVntvn: 89-97-0446Dkle 3.3x2.3mm Plstr Clgn Symbotex 9cm Comp Mfl Babsr Flm - Sna - [id number]_fivXynzi: 70-41-8044Pja 3.5mm Can Pthr 24mm Repl 11658 - Sna - [id number]: 77-69-3882Ntf 3.5mm Can Pthr 34mm Repl 55191 - Sna - [id number]_gjpUmqpu: 10-29-2017 Goals DatePatient GoalDesired Activity/StatePersonal health goal Functional Status HetkSmqraekwuuTntztsDfmhtrsy87-29-8338Roy you deaf, or do you have serious difficulty hearingNo 11/05/2023 11:51 AM EDT Debbie Jade RN NoCDayton Children's HospitalJekxcr73-24-5661Vqp you blind, or do you have serious difficulty seeing, even when wearing glassesNo 11/05/2023 11:51 AM EDT Debbie Jade RN [facility]03-29-2024Do you have serious difficulty walking or climbing stairsNo 11/05/2023 11:51 AM EDT Debbie Jade RN NoCDayton Children's Hospital 65-20-3736Xb you have difficulty dressing or bathingNo 11/05/2023 11:51 AM EDT Debbie Jade RN NoCDayton Children's HospitalPessvw02-59-3389Xvluuen of a physical, mental, or emotional condition, do you have difficulty doing errands alone such as visiting a physician's office or shoppingNo 11/05/2023 11:51 AM EDT Debbie Jade RN NoCDayton Children's HospitalOlsxxv78-52-6230Loglxgckpf statusPatient at [facility] Work Phone: Mental Status AkkdHtrsoqwzjzIlljbuSanhzsdk95-28-8361Pdfmoxq of a physical, mental, or emotional condition, do you have serious difficulty concentrating, remembering, or making decisionsNo 11/05/2023 11:51 AM EDDebbie Poe RN NoCohiohealth mansfield hospitalsharon Btpaei52-30-8959Csrcrhbya functionCognitive Status [facility] at [facility]Way[facility] Work Phone: Clinical Notes 12-04-2013 to 04-30-2025 Note Date & RineAhzwSsesqnzj59-56-7024 History of Present illness Narrative* Andrea Daley MD - 04/30/2025 12:45 PM EDT Images from the original note were not included. [address] [place] [address] [address] [facility] [address] Patient: Kimberly Everett Date of : 1950 Encounter Date: 04/30/2025 History of Present Illness: The patient is a 74 y.o. female, an established patient, and is here for Chief Complaint Patient presents with Follow-up . Known history angiomyolipoma. No gross hematuria no dysuria. Ultrasound looks good. Stable. Urinalysis today: No results for input(s): EXTPOCURCO , EXTPOCURCH , EXTPOCAPP , EXTPOCURBS , EXTPOCURBIL , EXTPOCUKET , EXTPOCUSPG , EXTPOCUHGB , EXTPOCUPRO , EXTPOCUURO , EXTPOCULEU , EXTPOCUNIT , EXTPOCUWBC , EXTPOCUBLD , EXTPOCURBC , EXTPOCUCRY , EXTPOCUBAC , EXTPOCUTREP , EXTPOCUPH , EXTPOCUL EE in the last 72 hours. Last BUN and creatinine: Lab Results Component Value Date BUN 22 03/03/2022 Lab Results Component Value Date CREATININE 0.75 03/03/2022 Last PSA: No results found for: PSA No results found for: PROSTATICSP Past Medical, Family, and Social History Update: The following portions of the patient's history were reviewed and updated as appropriate: allergies, current medications, past family history, past medical history, past social history, past surgicalhistory and problem list. 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 that causes pain, pupils unequal COPD (chronic obstructive pulmonary disease) (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 Mixed incontinence urge and stress Multiple thyroid nodules Pneumonia Rheumatic fever SOB (shortness of breath) Tachycardia Urinary tract infection Visual impairment glasses Weakness Past Surgical History: Procedure Laterality Date CHOLECYSTECTOMY CYSTOSCOPY CYSTOSCOPY RETROGRADE PYELOGRAM Bilateral 06/08/2018 Performed by Andrea Daley MD at [facility] CYSTOSCOPY RETROGRADE PYELOGRAM Bilateral 07/14/2017 Performed by Terrell Rodriguez MD at [facility] CYSTOSCOPY UM SOLUTION N/A 06/08/2018 Performed by Andrea Daley MD at [facility] DAVINCI REPAIR HERNIA VENTRAL N/A 03/24/2022 Performed by Andrea Gutiérrez DO at [facility] ESOPHAGOGASTRODUODENOSCOPY N/A 02/02/2022 Performed by Andrea Gutiérrez DO at [facility] EYE SURGERY 02/2018 drooping eyelids FOOT SURGERY FUSION TOE 1ST MPJ Left 10/29/2017 Performed by Madeleine Cee DPM at [facility] HERNIA REPAIR times 5 HYSTERECTOMY IMPACTED THIRD MOLAR REMOVAL KNEE SURGERY Left REMOVAL HARDWARE FOOT TOE Left 10/29/2017 Performed by Madeleine Cee DPM at [facility] REPAIR HAMMERTOE FOOT Left 10/29/2017 Performed by Madeleine Cee DPM at [facility] SMALL INTESTINE SURGERY obstruction TONSILLECTOMY Family History Problem Relation Age of Onset Tuberculosis Mother Hyperlipidemia Mother Breast cancer Mother COPD Father Congenital heart disease Father Hypertension Father Hyperlipidemia Father Current Outpatient Medications Medication Sig Dispense Refill albuterol (PROVENTIL HFA;VENTOLIN HFA) 90 mcg/actuation inhaler Inhale 2 puffs every 6 (six) hours as needed for wheezing. amLODIPine (NORVASC) 5 mg tablet apixaban (ELIQUIS) 5 mg tablet ascorbic acid (VITAMIN C) 500 mg tablet Take 1 tablet (500 mg total) by mouth in the morning. baclofen (LIORESAL) 10 mg tablet Take 1 tablet (10 mg total) by mouth in the morning and 1 tablet (10 mg total) at noon and 1 tablet (10 mg total) before bedtime. baclofen 5 mg tablet Take 5 mg by mouth nightly. BIOTIN ORAL Take 1,000 mg by mouth in the morning and 1,000 mg before bedtime. cholecalciferol, vitamin D3, (VITAMIN D3) 1,000 units tablet Take 1 tablet (1,000 Units total) by mouth in the morning and 1 tablet (1,000 Units total) before bedtime. cycloSPORINE (RESTASIS) 0.05 % ophthalmic emulsion 1 drop in the morning and 1 drop before bedtime. empagliflozin (JARDIANCE) 10 mg tablet tablet ipratropium (ATROVENT) 21 mcg (0.03 %) nasal spray Administer 2 sprays into each nostril every 12 (twelve) hours. isosorbide mononitrate (IMDUR) 30 mg 24 hr tablet Take 2 tablets (60 mg total) by mouth daily. loperamide (IMODIUM) 2 mg capsule Take 1 capsule (2 mg total) by mouth in the morning. Take one capsule by mouth every day for 10 days. losartan (COZAAR) 50 mg tablet Take 1 tablet (50 mg total) by mouth nightly. dkqtsubg-vmcs-PK-calcium &mins (THERAGRAN-M) 9 mg iron-400 mcg tablet Take 1 tablet by mouth inthe morning. pantoprazole (PROTONIX) 40 mg EC tablet daily. potassium chloride (K-DUR,KLOR-CON) 10 MEQ CR tablet Take 1 tablet (10 mEq total) by mouth in the morning. traZODone (DESYREL) 50 mg tablet 2 TRELEGY ELLIPTA 100-62.5-25 mcg blister with device aspirin 81 mg Take 1 tablet (81 mg total) by mouth in the morning. (Patient not taking: Reported on04/30/2025) budesonide-formoteroL (SYMBICORT) 160-4.5 mcg/actuation inhaler Symbicort 160 mcg-4.5 mcg/actuationHFA aerosol inhaler (Patient not taking: Reported on 04/30/2025) calcium carbonate (OS-ANTONIO) 600 mg elemental (1,500 mg) tablet Take 1 tablet (600 mg total) by mouthin the morning. colestipoL (COLESTID) 1 g tablet Take 1 g by mouth in the morning. (Patient not taking: Reported on04/30/2025) dicyclomine (BENTYL) 20 mg tablet Take 1 tablet (20 mg total) by mouth 3 (three) times a day. (Patient not taking: Reported on 04/30/2025) 5 FARXIGA 5 mg tablet Take 1 tablet (5 mg total) by mouth in the evening. fluticasone propionate (FLONASE) 50 mcg/actuation nasal spray USE 1 SPRAY IN EACH NOSTRIL ONCE A DAY furosemide (LASIX) 40 mg tablet Take 1 tablet (40 mg total) by mouth 2 (two) times a day as needed. hyoscyamine (LEVSIN) 0.125 mg SL tablet Take 1 tablet (125 mcg total) by mouth every 4 (four) hoursas needed for cramping or diarrhea (3x a day). ibuprofen (ADVIL,MOTRIN) 200 mg tablet Take 200 mg by mouth every 6 (six) hours as needed for pain.(Patient not taking: Reported on 04/30/2025) ibuprofen (MOTRIN) 800 mg tablet Take 1 tablet (800 mg total) by mouth every 8 (eight) hours as needed for pain. (Patient not taking: Reported on 04/30/2025) 20 tablet 0 oxyCODONE-acetaminophen (PERCOCET) 5-325 mg per tablet Take 1 tablet by mouth every 6 (six) hours as needed for pain for up to 12 doses. Max Daily Amount: 4 tablets (Patient not taking: Reported on 04/30/2025) 12 tablet 0 spironolactone (ALDACTONE) 25 mg tablet Take 1 tablet (25 mg total) by mouth in the morning. vitamin E 100 units capsule Take 100 Units by mouth in the morning. (Patient not taking: Reported on 04/30/2025) No current facility-administered medications for this visit. (All medications reviewed and updated by provider since last office visit or hospitalization) Allergies: Clindamycin, Adhesive, Amoxicillin, Azithromycin, Bactrim [sulfamethoxazole- trimethoprim], Cyproheptadine, Flagyl [metronidazole], Mobic [meloxicam], Bacitracin, Hibiclens [chlorhexidine gluconate], Latex, Neosporin (vtf-lll-xetwm) [jggaunqr-qocxmzwkegf-xqerpzemf], and Sulfa (sulfonamide antibiotics) Tobacco History: Social History Tobacco Use Smoking Status Former Current packs/day: 0.00 Average packs/day: 1 pack/day for 13.0 years (13.0 ttl pk-yrs) Types: Cigarettes Start date: 08/09/1987 Quit date: 08/09/2000 Years since quittin.7 Smokeless Tobacco Never (If patient a smoker, smoking cessation counseling offered) Social History: Social History Substance and Sexual Activity Alcohol Use Not Currently Review of Systems: General: Negative for chills and fever. Cardiovascular: Positive for chest pain and shortness of breath Gastrointestinal: Positive for diarrhea -per HPI Physical Exam: BP 138/81 Pulse 87 Ht 154.9 cm (5' 1 ) Wt 75.3 kg (166 lb) BMI 31.37 kg/m General Alert., Cooperative. Not in acute distress. Non-toxic. Orientation - Oriented X3. Head and Neck Normocephalic, atraumatic with no lesions. No abnormal movements. Trachea - midline. Integumentary Normal coloration of skin. Skin Moisture - normal skin moisture. Chest and Lung Exam Quiet, even and easy respiratory effort with no use of accessory muscles. Neurologic NON-focal Uses a cane Assessment and Plan: Nickie was seen today for follow-up. Diagnoses and all orders for this visit: Renal angiomyolipoma - Ultrasound retroperitoneal complete; Future Problem List High Renal angiomyolipoma - Primary Overview ==== 04/30/2025 ==== demonstrates stability very small angiomyolipoma. Repeat imaging 1-1.5 year. ==== 04/03/2024 ==== no interval gross hematuria flank pain. She has some lower back discomfort. Will just going to ultrasound to check ==== 10/06/2021 ==== stable 1.5 cm renal angiomyolipoma. Again discussed with patient potential riskof hemorrhage regarding size in the need for surveillance. Patient wishes to have delay in imaging ==== 03/12/2021 ==== no interval ultrasound no gross hematuria. Rationale for serial follow-up discussed with patient. Repeat study September or October of 2021 ====05/29/20===Overdue for surveillance. She agrees to be scheduled. This will assess for any urologic source for her back pain as well Renal ultrasound: 1.2 cm hyperechoic lesion left kidney October 08: Status post CT scan: Left lower pole angiomyolipoma. July 10: Renal ultrasound demonstrating increased size of angiomyolipoma measuring 1.7 cm. Previously measured 1.2 x 1.2 x 1 cm. ==== 02/28/2018 ==== ultrasound February 2018 stable 1.7 cm left lower pole angiomyolipoma ==== 06/21/2019 ==== due for ultrasound. This was ordered. Turn clinic after. Relevant Medications spironolactone (ALDACTONE) 25 mg tablet Other Relevant Orders Ultrasound retroperitoneal complete Follow-up: Return clinic 1-1.5 year. Renal ultrasound prior. Andrea Daley MD This note was created with the assistance of a speech recognition program. While intending to generate a timely document that accurately reflects the content of the visit, no guarantee can be provided that every grammatical or spelling mistake has been or will be identified or corrected. Thank you for your understanding. documented in this [facility]Ad[facility] Telephone encounter Note* Telephone Encounter - Nel Ac RN - 04/24/2025 10:16 AM EDT Pt scheduled appointment to discuss watchman in october. Susan RN [facility]09-16-2025 Miscellaneous Notes* Telephone Encounter - Nel Ac RN - 04/24/2025 10:16 AM EDT Pt scheduled appointment to discuss watchman in october. Susan RN * Telephone Encounter - Billie Garza - 04/20/2025 4:39 PM EDT April 20, 2025 Patient Contact Number: [phone] (home) [phone] (cell) Patient last seen within the last year: Yes Reason For Call: Medication Issue/Question: Patient called requesting to discuss her Eliquis medication. Please advise Thank you Adm Luis Financial Investment Adviser documented in this encounter[facility] Telephone encounter Note * Telephone Encounter - Edyta Castaneda MA - 04/23/2025 3:24 PM EDT I spoke to Olayinka at Dr. Hernandez's office - May 23 is when he is going to start. To help at their office, I offered to remind the patient to call out there next month to get her scheduled. Olayinka did say that she is going to wait, as she is unable to see Betzy's office. [facility] [id number] Miscellaneous Notes* Telephone Encounter - Edyta Castaneda MA - 04/23/2025 3:24 PM EDT I spoke to Olayinka at Dr. Hernandez's office - May 23 is when he is going to start. To help at their office, I offered to remind the patient to call out there next month to get her scheduled. Olayinka did say that she is going to wait, as she is unable to see Betzy's office. * Telephone Encounter - Olivia Coronado - 04/23/2025 9:34 AM EDT Olayinka @ Dr Schmitt's office left a vm stating she was returning your call Please call her at [phone] * Telephone Encounter - Edyta Castaneda MA - 04/19/2025 8:15 AM EDT Called the office and left a voicemail. I had left a voicemail a few days ago about getting her scheduled, unsure if this was a call before/after I had called them back. The patient does need to see pulmonology though to be cleared for surgery, I am hoping she is able to get an appointment. * Telephone Encounter - Sylvia Turk - 04/17/2025 9:14 AM EDT Olayinka called from Dr. Schmitt's office please call her back at [phone] documented in this encounterShriners Hospitals for [id number] Telephone encounter Note* Telephone Encounter - Olivia Coronado - 04/23/2025 9:34 AM EDT Olayinka @ Dr Schmitt's office left a vm stating she was returning your call Please call her at [phone] [facility] [id number] Telephone encounter Note* Telephone Encounter - Billie Garza - 04/20/2025 4:39 PM EDT April 20, 2025 Patient Contact Number: [phone] (home) [phone] (cell) Patient last seen within the last year: Yes Reason For Call: Medication Issue/Question: Patient called requesting to discuss her Eliquis medication. Please advise Thank you Adm Luis Financial Investment Adviser [facility]09-11-2025 Telephone encounter Note* Telephone Encounter - Edyta Castaneda MA - 04/19/2025 8:15 AM EDT Called the office and left a voicemail. I had left a voicemail a few days ago about getting her scheduled, unsure if this was a call before/after I had called them back. The patient does need to see pulmonology though to be cleared for surgery, I am hoping she is able to get an appointment. [facility] [id number] Telephone encounter Note* Telephone Encounter - Sylvia Turk - 04/17/2025 9:14 AM EDT Olayinka called from Dr. Schmitt's office please call her back at [phone] [facility] [id number] Evaluation note* Diagnosis Onset Date Resolution Status Admit Date Obstructive sleep apnea acuteSeptember 2024 1:11ph9hm degree AV blockchronicSeptember 2024 1:33pmAtrial fibrillationchronicSeptember 2024 1:33pmChronic diastolic (congestive) heart failurechronicSeptember 2024 1:33pmEssential hypertensionchronicSeptember 2024 1:33pmGERD (gastroesophageal reflux disease)acuteSeptember 2024 1:16pmIrritable bowel syndrome with diarrhea acuteSeptember 2024 1:16pm [facility] Work Phone: 1(392) 708-615909-02-2025 Evaluation note* Diagnosis Onset Date Resolution Status Admit Date Obstructive sleep apnea acuteSeptember 2024 1:22ol7ig degree AV blockchronicSeptember 2024 1:33pmAtrial fibrillationchronicSeptember 2024 1:33pmChronic diastolic (congestive) heart failurechronicSeptember 2024 1:33pmEssential hypertensionchronicSeptember 2024 1:33pmGERD (gastroesophageal reflux disease)acuteSeptember 2024 1:16pmIrritable bowel syndrome with diarrhea acuteSeptember 2024 1:16pmPolyarthritisacuteOctober 2024 10:47am Osteoarthritis of left kneenoneactiveOctober 2024 10:47amImpaired mobility noneactiveOctober 2024 10:47am [facility] Work Phone: 1(445) 708-815409-02-2025 Evaluation note* Diagnosis Onset Date Resolution Status Admit Date Obstructive sleep apnea acuteSeptember 2024 1:67zo9lg degree AV blockchronicSeptember 2024 1:33pmAtrial fibrillationchronicSeptember 2024 1:33pmChronic diastolic (congestive) heart failurechronicSeptember 2024 1:33pmEssential hypertensionchronicSeptember 2024 1:33pmGERD (gastroesophageal reflux disease)acuteSeptember 2024 1:16pmIrritable bowel syndrome with diarrhea acuteSeptember 2024 1:16pmPolyarthritisacuteOctober 2024 10:47am Osteoarthritis of left kneenoneactiveOctober 2024 10:47amImpaired mobility noneactiveOctober 2024 10:47amGERD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 daily. MULTIVIT WITH IRON-MINERALS (MULTIVITAMIN AND MINERALS ORAL) Take 1 tablet by mouth once daily. POTASSIUM CHLORIDE (KLOR-CON 10 ORAL) Take 10 mEq by mouth twice daily. furosemide (LASIX) 40 mg tablet Take 40 mg by mouth once daily. Nel Bray RN PHYSICAL EXAMINATION: BP 149/73 Pulse 84 Ht 154.9 cm (5' 1 ) Wt 70.1 kg (154 lb 9.6 oz) BMI 29.21 kg/m General: Well appearing, in no acute distress, speaking in complete sentences. Skin: No clubbing, no cyanosis. PPM pocket well-healed. Neck: no jugular venous distention, Lungs: Clear to auscultation bilaterally, no wheezing or rhonchi. Heart: Regular rhythm, PMI not displaced, S1, S2 normal, no S3, no S4, no heaves, no rub and 2/6 CIARA. Abdomen: Soft, nontender, bowel sounds normal, no palpable organomegaly, no bruits. Extremities: No peripheral edema . Grade 2/4 distal pulses bilaterally. Neuro: Oriented to person, place and time, alert, cooperative, using a wheelchair. CARDIOVASCULAR MEDICINE TESTING: ECG - sinus, /WEIGHER AND CHARGER at 84bpm. Normal In-Office: No Events DUAL CHAMBER PPM EVALUATION (RA and LBB leads) * Presents for: OPD with Dr. Lockett * Normal Device Function * Alerts or events: None * Battery: OK, 11.50 yrs to CARE SUPPORT REPRESENTATIVE. * Sensing, impedance and thresholds reviewed and tested today WNL. * Presenting Rhythm: /WEIGHER AND CHARGER * Underlying Rhythm: Sinus Rhythm * Heart Rate Histograms reviewed with appropriate distribution noted. * Pacing and Detection Parameters were evaluated * AP 0.9%, LBB pacing 99.4% Device Reprogrammed Device reprogrammed, changes are listed below: * Increased RA output slightly based on testing today. Last ECHO Result Conclusion ECHO Collected: 11/03/2023 3:06 PM (Final result) Impression: CONCLUSIONS: - Technically difficult exam due to [...] * * * Final * * * Last EKG Result Conclusion ECG COMPLETE Collected: 12/11/2024 2:51 PM (Preliminary result) Impression: ATRIAL-SENSED VENTRICULAR-PACED RHYTHM ABNORMAL ECG I have personally reviewed the Electrocardiogram, Echocardiogram, and Device Check. IMPRESSION: Ms. Everett is a 74 year old female with a history of HTN, hypothyroidism and COPD - she had a ppm placed 11/04/2023 for second degree heart block, symptomatic bradycardia and intermittent LBBB. 1. Pacemaker (Z95.0) Pacemaker is functioning well with no issues in lead characteristics. EKG is reassuring (narrow QRS- although no r' in V1). Pocket site is well-healed with no signs of infection, though there is tenderness upon palpation. Patient reports new-onset fatigue since pacemaker implantation in October of last year. - Recommended echocardiogram to assess cardiac function and determine if constant pacing is affecting heart function. - Patient advised to continue current management and follow-up with local database modeler. - Discussed occasional use of ibuprofen for pain management, emphasizing it should not be used routinely. - Patient plans on transitioning all her cardiac care locally - she will discuss remote PPM monitoring an TTE with her local database modeler. 2. AF (paroxysmal atrial fibrillation) (HCC) (I48.0) Pacemaker detected several hours of atrial fibrillation since implantation. No additional medications or interventions required at this time. Patient is on Eliquis to reduce stroke risk. - Continue Eliquis therapy. - No further treatment for atrial fibrillation necessary at this time. PLAN AND RECOMMENDATIONS: -See above. -Patient transitioning all her care locally. Thus, follow-up with me on an as- needed basis. Garland Lockett MD I personally interviewed, confirmed and edited the above information as obtained by others. CONTACT INFORMATION: Garland Lockett MD, PHD Recording using [employer] software for draft documentation of the visit was discussed with the patient/authorized account maintenance representative; all questions welcomed and answered. Patient/authorized account maintenance representative agreed to proceed Medical Decision Making: Problems: Moderate: 2+ stable chronic illnesses Data: Unique test result(s) reviewed: 3+ Risk: Moderate: Moderate risk from testing/treatment and Drug management Medical Decision Making Level: 4 - Moderate documented in this encounterSelect [facility]25 NoteHNO ID: [id number] Author: GARLAND LOCKETT MD Service: ? Author Type: Physician Type: Progress Notes Filed: 12/11/2024 17:11 Note Text: [facility] Natalia Cevallos Department of Cardiovascular Medicine SECTION OF CARDIAC PACING and ELECTROPHYSIOLOGY OUTPATIENT VISIT DATE December 11, 2024 OUTPATIENT VISIT TYPE ESTABLISHED PRIMARY CARE PHYSICIAN: Lisa Graham [address] [place] [address] REFERRING PHYSICIAN: Garland Lockett [address] [facility] [address] CHIEF COMPLAINT: PPM AF HISTORY OF PRESENT ILLNESS/NURSING INTAKE NOTE: Ms. Everett is a 74 year old female who presents today for follow-up visit for device management. She has a PMH of HTN, hypothyroidism and COPD. She had a ppm placed 11/04/2023 for second degree heart block, symptomatic bradycardia and intermittent LBBB. Her device check showed atrial fibrillation in December of 2023 (longest 8 hours) and she was started on eliquis. She had two appointments with Dr. Tapia that were cancelled by his office. She has found a local provider. She denies chest pain, cough, palpitations, lightheadedness or syncope. She needs a refill for eliquis and she still has some pain at the surgical site. She will be having an MRI of her knee and would like to know if she an have it with her device. She would also like to know if there are any alternatives to tylenol for pain. CHADS VASC: 5 (HTN, age, female, CAD, CHF) PAST MEDICAL HISTORY Diagnosis Date KANU (acute kidney injury) 12/19/2015 Breech delivery (HCC) 1975 Required 2 unit transfusion post op Chronic diastolic congestive heart failure (HCC) 11/03/2023 Chronic fatigue CMV (cytomegalovirus infection) (HCC) COPD (chronic obstructive pulmonary disease) (HCC) 12/04/2013 High degree atrioventricular block 11/03/2023 Hypertension 12/04/2013 Hypothyroid Mononucleosis KATELYN (obstructive sleep apnea) 11/03/2023 Preop cardiovascular exam 12/04/2013 Syrinx of spinal cord (HCC) 2005 C6 through T1. Vertebral hemangioma T5 Vaginal prolapse Ventral hernia 12/04/2013 PAST SURGICAL HISTORY Procedure Laterality Date F TOTAL ABDOMINAL HYSTERECTOMY OOPHORECTOMY, PART/TOTAL UNILAT/BILAT PAST SURGICAL HISTORY OF 02/06/2009 Exp. laparotomy, resection TI and right colon for volvulus PAST SURGICAL HISTORY OF 02/07/2008 left breast biopsy - benign FCD PAST SURGICAL HISTORY OF 08/09/1972 Umbilical hernia repair PAST SURGICAL HISTORY OF 08/09/2009 Repair incisional hernia mesh PAST SURGICAL HISTORY OF 08/09/2011 repair recurrent incisional hernia mesh PAST SURGICAL HISTORY OF 08/09/2012 cholecystectomy PPM IMPLANT 11/04/2023 SOCIAL HISTORY Social History Tobacco Use Smoking status: Former Current packs/day: 0.00 Average packs/day: 1 pack/day for 18.0 years (18.0 ttl pk-yrs) Types: Cigarettes Start date: 08/09/1982 Quit date: 08/09/2000 Years since quittin.3 Smokeless tobacco: Never Vaping Use Vaping status: Never Used Substance Use Topics Alcohol use: No Drug use: No FAMILY HISTORY Problem Relation Age of Onset Diabetes Maternal Grandfather Hypertension Father Hypertension Mother Stroke Maternal Grandmother Cancer Mother breast Cancer Paternal Grandmother colon, stomach Cancer Maternal Grandfather bone ALLERGIES: ALLERGIES Allergen Reactions Amoxicillin Rash If already mixed with a mediction I react from the mixture Pt. states Augmentin [Amoxicil* Rash Azithromycin Hives Bacitracin Rash Chlorhexidine Rash Clindamycin Hives Flagyl [Metronidazo* Rash, Itching Mobic [Meloxicam] Rash, Itching Montelukast Rash Neosporin [Neomycin* Rash Sulfa (Sulfonamide * Rash, Hives MEDICATIONS: oxyCODONE-acetaminophen (PERCOCET) 5-325 mg tablet Take 1 tablet by mouth every 8 hours as needed for pain. Takes one half tab at night apixaban (ELIQUIS) 5 mg tab(s) Take 1 tablet by mouth two times a day. acetaminophen (TYLENOL) 500 mg tablet Take 2 tablets by mouth every 6 hours as needed for pain. aspirin, enteric coated (ASPIRIN, ENTERIC COATED) 81 mg EC tablet Take 81 mg by mouth once daily. cyanocobalamin (VITAMIN B-12) 1,000 mcg tab Take 1,000 mcg by mouth once daily. calcium carbonate (CALCIUM 600) 600 mg calcium (1,500 mg) tab Take 600 mg by mouth once daily. amLODIPine (NORVASC) 5 mg tablet Take 5 mg by mouth once daily. ALBUTEROL SULFATE (PROAIR HFA INHALATION) Inhale as instructed every 4 hours as needed. Biotin 10,000 mcg cap Take 10,000 mcg by mouth once daily. ascorbic acid, vitamin C, (VITAMIN C) 500 mg tablet Take 500 mg by mouth once daily. cycloSPORINE (RESTASIS) 0.05 % ophthalmic emulsion Use 1 Drop in both eyes twice daily. baclofen 5 mg tablet Take 10 mg by mouth three times a day. Takes 15 mg AM, 10 mg in afternoon and 15 mg PM Cholecalciferol, Vitamin D3, (VITAMIN D) 1,000 unit cap Take 1, (more content not included)...[facility]05-02-2025 History of Present illness Narrative* LUIS Cavazos - 12/08/2024 10:00 AM EDTAssociated Order(s): Cast / Splint / Fx Post-Procedure Diagnose(s): Effusion of left knee; Instability of left knee joint Images from the original note were not included. Orthopedic Office note: NAME: Kimberly Everett : 1950 (EST PT) - RECHECK (L) KNEE - PT NOTES MULTIPLE FALLS IN THE LAST COUPLE YRS- NO RECENT TX PT GIVEN CORTISONE INJ RT SHOULDER 11/08/[address] MASSEY XRAY LT KNEE TODAY EPIC 12/08/24 XRAYS 07/19/24 IN THE [facility]ICAL [facility] UNABLE TO HAVE MRI - PACEMAKER CURRENTLY TAKING DEXMETHASONE 2MG DAILY ; DR RAMÍREZ NO MDP / PREDNISONE S/P CORTISONE INJ 01/21/24, 12/11/22 NO PHYSICAL THERAPY NO PAIN MGMT PAIN ANTERIOR KNEE- PT DOES HAVE SOME CALF PAIN- LIMITED ROM- DIFFICULTY FULLY EXT/FLEX+WAKES HS- USES CANE TO AMBULATE- +STIFFNESS WITH PROLONG SITTING- +SWELLING- +BIOFREEZE/TYLENOL H/O INJURY : 10/04/22 & 11/13/22 - STATES SHE FELL AT HOME TAKES ELIQUIS - H/O PACEMAKER Physical Exam General Appearance: Normal Respiratory: No acute distress Musculoskeletal: There is pain in the knee with MCL and LCL stressing. Skin: Warm and dry, no rash. Neurological: Normal Knee Musculoskeletal Exam Gait Antalgic: left Limp: left Assistive device: cane Inspection Leg length disparity: no discrepancy Left Erythema: none Effusion: none Edema: none Ecchymosis: none Deformity: none Alignment: normal Palpation Left Left knee palpation is unremarkable. Increased warmth: none Masses: none Crepitus: patellofemoral Tenderness: present Lateral joint line: moderate Medial joint line: moderate Palpation additional comments: + tenderness proximal tibia anterior and posterio. + tenderness to calf proximally, compartments soft. No pain to distal achilles. Range of Motion Left Active extension: 10 Left knee passive extension: 8. Active flexion: 90 Passive flexion: 90 Strength Left Left knee strength is normal. Extension: 4+/5. Extension is affected by pain. Flexion: 4+/5. Flexion is affected by pain. Strength additional comments: No pain with motion of hip. Instability Left Varus stress grade: normal (+ pain) Valgus stress grade: normal (+ pain) Anterior drawer: normal Neurovascular Left Left knee neurovascular exam is normal. Pulses - PT: normal Posterior tibial: 2+ Capillary refill: warm and well-perfused Special Signs Left Straight leg raise: normal Patellar compression: mild Patellar apprehension: mild General Constitutional: appears stated age Labored breathing: no Psychiatric: normal mood and affect Neurological: alert Skin: intact Lymphadenopathy: none Orders Placed This Encounter Procedures Cast / Splint / Fx This order was created via procedure documentation XR knee 1 or 2 views left Views: AP Views: Lateral Reason for exam:: PAIN MR knee left wo IV contrast Standing Status: Future Expected Date: 12/08/2024 Expiration Date: 12/08/2025 Scheduling Instructions: MRI LT KNEE WITHOUT CONTRAST @ [facility] [place]; PLEASE CALL PT TO SCHEDULE- PT DOES HAVE A PACEMAKER Reason for exam:: LT KNEE INTERNAL DERANGEMENT Cast / Splint / Fx Date/Time: 12/08/2024 10:43 AM Performed by: LUIS Cvaazos Authorized by: LUIS Cavazos Consent given by: patient Timeout: Immediately prior to procedure a time out was called to verify the correct patient, procedure, equipment, endoscopy support specialist and site/side marked as required Injury Location details: left knee Pre-procedure assessment neurovascularly intact Range of motion: reduced Procedure Manipulation performed? no manipulation performed Immobilization: brace Post-procedure assessment neurovascularly intact Patient tolerance: patient tolerated the procedure well with no immediate complications Comments A left L1821 off the shelf, prefabricated, knee orthosis with condylar pads and joints with or without patellar control was dispensed, fitted, and adjusted at this visit. The function of the device is to provide support, decrease edema, control motion at the knee joint. It will redistribute pressure and allow more comfortable weight-bearing and better support. It is for increased stability of theknee joint. The goals of the device are to decrease pain decrease inflammation, increase stability and to allow the patient to ambulate independently. The device is medically necessary for the condition, symptoms and diagnosis. It was dispensed and fitted for the patient, and it fit properly. The patient was educated as to proper use and care, and this was reviewed in detail. Written instructionsand warranty information were given with the device. A receipt for the device is on file. The current supplier standards were given to the patient. [facility] patient agreement was completed at time of dispensement.. The patient stated that the device was comfortable when fitted in the office and thepatient was able to ambulate without distress with this knee orthosis. At the time of dispensement,the device was suitable and not substandard. Results - Imaging: - X-ray of the left knee shows no evidence of fracture ICD-10-CM 1. Acute pain of left knee M25.562 XR knee 1 or 2 views left MR knee left wo IV contrast 2. Primary osteoarthritis of left knee M17.12 3. 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 Effusion of left knee M25.462 HYDROcodone-acetaminophen (Converse) 5-325 MG tablet 5. Pain of left calf M79.662 Assessment & Plan Left knee pain The patient experienced acute onset of left knee pain after standing. An x-ray was discussed at thebedside, showing no evidence of fracture. There is significant pain in the proximal tibia with weightbearing. Given her calf pain, a DVT appears much less likely. There is no significant bruising. She has pain with MCL and LCL stressing. Diagnostic plan: An MRI of the knee is recommended for further evaluation to rule out an occult fracture. Treatment plan: A hinged knee brace and the use of her walker are recommended to prevent falls. A short supply of Converse will be provided to help with pain management. She is advised not to drive while on the pain medication. Clinical decision making: Risk factors for pathologic fracture include chronic steroid use and her history with significantly increased pain abruptly after standing is concerning. She has a pacemakerthat is MRI compatible with conditions, and this information has been photographed and uploaded to her chart for the MRI personnel. She requested [facility] on [facility]. Follow-up: The patient expressed gratitude and had no further concerns or questions. Questions answered in laymen terms at the bedside. The diagnosis, home exercise plan and any ongoing restrictions/ recommendations reviewed. If unable to be reached in office, I recommend evaluation at nearest Emergency Room if any symptoms worsened or new symptoms develop for requiring urgent evaluation. Visit was preformed using [employer] speech recognition. documented in this encounterShriners Hospitals for [id number] History of Present illness Narrative* Jr. Dolores Massey, - 11/08/2024 1:15 PM EDT Images from the original note were not included. HISTORY OF PRESENT ILLNESS: EST PT Kimberly Everett is an 73 y.o. @ female. (EST PT) - RECHECK (L) KNEE (R) SHOULDER DISCOMFORT : HX MULTIPLE FALLS WITHIN THE LAST 5 YRS. 2 FALLS 2023 XRAYS 07/19/24 IN EPIC UNABLE TO HAVE MRI - PACEMAKER CURRENTLY TAKING DEXMETHASONE 2MG DAILY ; DR RAMÍREZ (1 DOSE LEFT) NO MDP / PREDNISONE S/P CORTISONE INJ 01/21/24, 12/11/22 NO PHYSICAL THERAPY NO PAIN MGMT INTERMITTENT MEDIAL DISCOMFORT - CAN BE POSTERIOR AND RADIATE INTO CALF - WORSE HS IN BED. INTERMITTENT SWELLING. DENIES N/T. GOOD ROM. CRACKING. DENIES GRINDING. ADMITS BUCKLING OCCASIONALLY. DENIESWEAKNESS / INSTABILITY. BIOFREEZE 3-4X DAILY - WITH RELIEF. TAKING TYLENOL PRN / TRILEPTAL BID - WITH RELIEF. ICING. DENIES HEATING / ELEVATING - STATES STIFFNESS & DIFFICULTY FLEXING WITH ELEVATION. H/O INJURY : 10/04/22 & 11/13/22 - STATES SHE FELL AT HOME TAKES ELIQUIS - H/O PACEMAKER ALLERGIES: Allergies Allergen Reactions Amoxicillin Unknown Aspirin Unknown Azithromycin Unknown Bacitracin Unknown Chlorhexidine Other Reaction(s): Rash Clavulanic Acid Other Reaction(s): Rash Clindamycin Unknown Cyproheptadine Cramping, muscle pain Latex Unknown Meloxicam Unknown Metronidazole Unknown Montelukast Other Reaction(s): Rash Neomycin Unknown Polymyxin B Unknown Sulfa Antibiotics Unknown and Hives Other Reaction(s): Hives Sulfamethoxazole-Trimethoprim Wound Dressing Adhesive Amoxicillin-Pot Clavulanate Rash Bacitracin-Polymyxin B Unknown and Rash HOME MEDICATIONS: Current Outpatient Medications Medication Instructions albuterol HFA 90 mcg/act inhaler 2 puffs, Inhalation, Every 4 hours PRN amLODIPine (NORVASC) 5 mg, Every 24 hours aspirin 81 mg, Oral, Daily baclofen (Lioresal) 10 MG tablet TAKE 1 TABLET BY MOUTH EVERY MORNING, AT NOON, EVERY EVENING, AND AT BEDTIME baclofen (LIORESAL) 5 mg, Oral, 2 times daily Biotin Maximum Strength 02461 MCG tablet TAKE 1 TABLET (10 MG) BY MOUTH IN THE MORNING AND BEFORE BEDTIME colestipol (Colestid) 1 g tablet Every 24 hours cycloSPORINE (Restasis) 0.05 % ophthalmic emulsion Every 12 hours dexAMETHasone (DECADRON) 2 mg, Oral, 2 times daily with meals Eliquis 5 mg, Oral, 2 times daily empagliflozin (Jardiance) 10 MG Daily Dgcnswcnued-Vjbkpffwx-Yihewi (Trelegy Ellipta) 100-62.5-25 MCG/INH aerosol powder Trelegy [...] oxide (MAG-OX) 400 mg, Oral, Daily RT OXcarbazepine (TRILEPTAL) 150 mg, Oral, 2 times daily pantoprazole (PROTONIX) 40 mg, Oral, Every 24 hours potassium chloride CR (KLOR-CON) 10 MEQ ER tablet Every 12 hours spironolactone (ALDACTONE) 25 mg, Oral, Daily traZODone (Desyrel) 50 MG tablet TAKE 1 TABLET BY MOUTH EVERY DAY AT BEDTIME NEEDED FOR 90 DAYS PHYSICAL EXAM: Shoulder Musculoskeletal Exam Inspection Left Left shoulder inspection is normal. Ecchymosis: none Peripheral edema: none Atrophy: none Masses: none Palpation Left Crepitus: no crepitus Increased warmth: none Tenderness: present Anterior shoulder: mild AC joint: mild Lateral arm: mild Range of Motion Right Right shoulder active abduction: + pain passing 90 degrees. Left Left shoulder range of motion is normal. Active ROM: pain. Passive ROM: pain. Active forward elevation: 160. Passive forward elevation: 180. Shoulder active abduction: 160. Passive abduction: 160. Active external rotation at side: 80. Passive external rotation at side: 80. Internal rotation: L5. Strength Left External rotation: 5/5. Internal rotation: 5/5. Abduction: 5/5. Biceps: 5/5. Triceps: 5/5. Neurovascular Left Radial pulse: normal and 2+ Capillary refill: <3 sec Axillary nerve sensory distribution: normal Scapula Left Left shoulder scapula is normal. Position: normal Winging: none Special Tests Left Rotator Cuff Signs Neer's test: positive Chanel test: positive Painful arc test: positive Biceps/darshana Signs Speed's test: negative General Constitutional: appears stated age Neurological: alert and oriented x3 Vitals: There is no height or weight on file to calculate BMI. Tobacco Use: Low Risk (11/08/2024) Patient History Smoking Tobacco Use: Never Smokeless Tobacco Use: Never Passive Exposure: Not on file Alcohol Use: Not on file IMAGING: Procedures No orders of the defined types were placed in this encounter. ASSESSMENT: ICD-10-CM 1. Impingement syndrome of left shoulder M75.42 2. Pain and swelling of left shoulder M25.512 M25.412 PLAN: We have injected her today under sterile technique with Depo-Medrol after obtaining informed consent without difficulty. We have discussed her restrictions and home exercise program. We'll see her back in 2 months she would like to be seen for her left knee and possibly have an injection in that atthat time. We have discussed restrictions and home exercise program in the interim. Questions answered in laymen terms at the bedside. The diagnosis, home exercise plan and any ongoing restrictions/ recommendations reviewed. If unable to be reached in office, I recommend evaluation at nearest Emergency Room if any symptoms worsened or new symptoms develop for requiring urgent evaluation. documented in this encounterShriners Hospitals for [id number] Evaluation note* Diagnosis Onset Date Resolution Status Admit Date 2nd degree AV block chronicDeceer 2023 12:54pmCAD (coronary artery disease)chronicDeceer 2023 12:54pmChronic diastolic (congestive) heart failurechronicDecember 2023 12:54pmURI (upper respiratory infection)noneactiveDecember 2023 12:54pmObstructive sleep apneaacuteMarch 2024 1:01cf9ql degree AV block chronicMarch 2024 1:23pmAtrial fibrillationchronicMarch 2024 1:23pm Chronic diastolic (congestive) heart failurechronicMarch 2024 1:23pm Essential hypertensionchronicMarch 2024 1:23pm [facility] Work Phone: 1(554) 625-151212-30-2024 Evaluation note* Diagnosis Onset Date Resolution Status Admit Date 2nd degree AV block chronicDecember 2023 12:54pmCAD (coronary artery disease)chronicDecember 2023 12:54pmChronic diastolic (congestive) heart failurechronicDecember 2023 12:54pmURI (upper respiratory infection)noneactiveDecember 2023 12:54pm [facility] Work Phone: 1(960) 930-465612-30-2024 Telephone encounter Note* Telephone Encounter - Patt Dsouza - 08/07/2024 10:48 AM EST Admin called pt to let her know 09/[address] Tapia has to be rescheduled as Dr. Castillo be out the office. Let pt know next available is 01/22 at 2:30. Pt understood and appt was rescheduled. Patt Dsouza August 07, 2024 10:50 AM [facility]12-30-2024 Miscellaneous Notes* Telephone Encounter - Patt Dsouza - 08/07/2024 10:48 AM EST Admin called pt to let her know 09/[address] Tapia has to be rescheduled as Dr. Castillo be out the office. Let pt know next available is 01/22 at 2:30. Pt understood and appt was rescheduled. Patt Dsouza August 07, 2024 10:50 AM documented in this encounterSelect [facility], [facility]12-11-2024 History of Present illness Narrative* Jr. Dolores Massey, DO - 07/19/2024 1:00 PM EST Images from the original note were not included. HISTORY OF PRESENT ILLNESS: EST PT Kimberly Everett is an 73 y.o. @ female. (EST PT) RECHECK (L) KNEE ; S/P CORTISONE INJ 01/21/24 (~6 MONTHS) XRAYS DONE TODAY, 07/19/24 IN EPIC UNABLE TO HAVE MRI - PACEMAKER CURRENTLY TAKING DEXMETHASONE 2MG DAILY ; DR RAMÍREZ (1 DOSE LEFT) S/P CORTISONE INJ 01/21/24, 12/11/22 NO PHYSICAL THERAPY NO PAIN MGMT NOTES GOOD RELIEF FROM CORTISONE INJ BUT STATES SHE HAS FALLEN A FEW TIMES RECENTLY ; NOTES CONSTANT PAIN - WORSE WITH ACTIVITY / MOVEMENT - MEDIAL ASPECT. NOTES GOOD ROM ; SOME INSTABILITY WHEN GOING UP / DOWN STEPS. SOME OCCASIONAL SWELLING - ICES. TAKING TYLENOL PRN / LYRICA BID - WITH RELIEF. H/O INJURY : 10/04/22 & 11/13/22 - STATES SHE FELL AT HOME TAKES ELIQUIS - H/O PACEMAKER ALLERGIES: Allergies Allergen Reactions Amoxicillin Unknown Aspirin Unknown Azithromycin Unknown Bacitracin Unknown Chlorhexidine Other Reaction(s): Rash Clavulanic Acid Other Reaction(s): Rash Clindamycin Unknown Cyproheptadine Cramping, muscle pain Latex Unknown Meloxicam Unknown Metronidazole Unknown Montelukast Other Reaction(s): Rash Neomycin Unknown Polymyxin B Unknown Sulfa Antibiotics Unknown and Hives Other Reaction(s): Hives Sulfamethoxazole-Trimethoprim Wound Dressing Adhesive Amoxicillin-Pot Clavulanate Rash Bacitracin-Polymyxin B Unknown and Rash HOME MEDICATIONS: Current Outpatient Medications Medication Instructions albuterol HFA 90 mcg/act inhaler 2 puffs, Inhalation, Every 4 hours PRN amLODIPine (NORVASC) 5 mg, Every 24 hours aspirin 81 mg, Oral, Daily baclofen (Lioresal) 10 MG tablet TAKE 1 TABLET IN THE MORNING, AT NOON, IN THE EVENING, AND 1 BEFORE BEDTIME baclofen (LIORESAL) 5 mg, Oral, 2 times daily Biotin Maximum Strength 54670 MCG tablet TAKE 1 TABLET (10 MG) BY MOUTH IN THE MORNING AND BEFORE BEDTIME colestipol (Colestid) 1 g tablet Every 24 hours cycloSPORINE (Restasis) 0.05 % ophthalmic emulsion Every 12 hours dexAMETHasone (DECADRON) 2 mg, Oral, 2 times daily with meals Eliquis 5 mg, Oral, 2 times daily empagliflozin (Jardiance) 10 MG Daily Dhntwmgwyqu-Sohjnxwkk-Nhqzgt (Trelegy Ellipta) 100-62.5-25 MCG/INH aerosol powder Trelegy [...] 10 MEQ ER tablet Every 12 hours pregabalin (LYRICA) 25 mg, Oral, 2 times daily spironolactone (ALDACTONE) 25 mg, Oral, Daily traZODone (Desyrel) 50 MG tablet TAKE 1 TABLET BY MOUTH EVERY DAY AT BEDTIME NEEDED FOR 90 DAYS PHYSICAL EXAM: Knee Musculoskeletal Exam Gait Antalgic: left Inspection Leg length disparity: no discrepancy Left Erythema: none Effusion: mild Edema: none Ecchymosis: none Deformity: none Alignment: varus Palpation Left Left knee palpation is unremarkable. Increased warmth: none Masses: none Crepitus: patellofemoral and medial Tenderness: present Medial joint line: moderate Patella: mild Range of Motion Left Left knee range of motion is normal and full. Active extension: 10 Passive extension: 10 Active flexion: 120 Passive flexion: 120 Strength Left Left knee strength is normal. Extension: 5/5. Extension is affected by pain. Flexion: 5/5. Flexion is affected by pain. Instability Left Instability signs: none - stable Anterior drawer: normal Neurovascular Left Left knee neurovascular exam is normal. Pulses - PT: normal Posterior tibial: 2+ Capillary refill: warm and well-perfused Special Signs Left Left knee special signs are normal. General Constitutional: appears stated age Labored breathing: no Psychiatric: normal mood and affect Neurological: alert Skin: intact Lymphadenopathy: none Vitals: There is no height or weight on file to calculate BMI. Tobacco Use: Low Risk (07/19/2024) Patient History Smoking Tobacco Use: Never Smokeless Tobacco Use: Never Passive Exposure: Not on file Alcohol Use: Not on file IMAGING: XR knee 1 or 2 views left Imaging Result: X-rays AP and lateral of left knee show mild degenerative changes with mild flattening of the articular surfaces to the medial joint line with decreased joint space height to the medial joint line. Lateral joint line appeared to be well preserved there was subchondral sclerosis noted at the medial joint line and patellofemoral joint. There is no evidence of fracture or dislocation. Bony structures visualized appeared to be adequately ossified. Procedures Orders Placed This Encounter Procedures XR knee 1 or 2 views left Order Specific Question: Reason for exam: Answer: PAIN ASSESSMENT: ICD-10-CM 1. Acute pain of left knee M25.562 XR knee 1 or 2 views left PLAN: We have discussed her x-ray results with her at length today. Sponge and she will to need a cortisone injection at this time. She refuses surgical intervention because she feels she is functioning too well. She understands the risks and benefits of same program. We'll see her back in 3 months. If her symptoms persist or worsen, we may recommend a cortisone injection at that time. Questions answered in laymen terms at the bedside. The diagnosis, home exercise plan and any ongoing restrictions/ recommendations reviewed. If unable to be reached in office, I recommend evaluation at nearest Emergency Room if any symptoms worsened or new symptoms develop for requiring urgent evaluation. documented in this encounterShriners Hospitals for [id number] History of Present illness Narrative* Bartolo Ramírez MD - 06/29/2024 2:00 PM EST Images from the original note were not [...] Oral, 2 times daily Biotin Maximum Strength 20365 MCG tablet TAKE 1 TABLET (10 MG) BY MOUTH IN THE MORNING AND BEFORE BEDTIME colestipol (Colestid) 1 g tablet Every 24 hours cycloSPORINE (Restasis) 0.05 % ophthalmic emulsion Every 12 hours dexAMETHasone (DECADRON) 2 mg, Oral, Daily dexAMETHasone (DECADRON) 2 mg, Oral, 2 times daily with meals Eliquis 5 mg, Oral, 2 times daily empagliflozin (Jardiance) 10 MG Daily Swwjyarnxum-Llmbzgwwf-Sbmgok (Trelegy Ellipta) 100-62.5-25 MCG/INH aerosol powder Trelegy [...] / REMOVE PACEMAKER 11/04/2023 DR CARTAGENA - [facility] KNEE SURGERY Arthroscopy knee [place] SHOULDER SURG PROC UNLISTED Right :cyst right [...] Oriented to person, place and time. Recent andremote memory are intact. Speech is normal. Language is fluent with no aphasia. Attention and concentration are normal. Cranial Nerves CN II: Visual acuity is normal. Visual aldana full to confrontation. CN III, IV, : [...] reflexes: Dimitris's absent. Ankle clonus absent. Coordination Mnmsch-vn-tamn, rapid alternating movements and jqvi-iv-qgoz normal bilaterally without dysmetria. Gait Normal casual, [...] Follow up 3 months. documented in this encounterShriners Hospitals for [id number] Telephone encounter Note* Telephone Encounter - Nel Bray RN - 06/27/2024 3:40 PM EST Relayed to patient. Susan SERVIN [facility]11-19-2024 Miscellaneous Notes* Telephone Encounter - Nel Bray RN - 06/27/2024 3:40 PM EST Relayed to patient. Susan RN * Telephone Encounter - Ana Ortiz - 06/27/2024 1:30 PM EST June 27, 2024 Patient Contact No. [phone] Patient last seen: Visit date not found Patient has enough Eliquis for three days and would like a refill called in ([place], [place]). She also wants to know if she should continue taking aspirin with the Eliquis, as well as does she need to schedule a follow-up visit (has not been seen in the office since her device was placed in October). Physician: Garland Lockett MD documented in this encounterSelect [facility]11-19-2024 Telephone encounter Note * Telephone Encounter - Ana Ortiz - 06/27/2024 1:30 PM EST June 27, 2024 Patient Contact No. [phone] Patient last seen: Visit date not found Patient has enough Eliquis for three days and would like a refill called in ([place], [place]). She also wants to know if she should continue taking aspirin with the Eliquis, as well as does she need to schedule a follow-up visit (has not been seen in the office since her device was placed in October). Physician: Garland Lockett MD [facility]09-04-2024 History of Present illness Narrative* Grazyna Mota MA - 04/12/2024 2:00 PM EDT Patient was in today for an end of service contract appointment. Patient is doing well with the hearing aids and did not want any changes. Patient aids were cleaned and checked. Listening check was good. Patient was given supplies and told of cost for future supplies. Patient will continue as needed. documented in this encounterShriners Hospitals for [id number] History of Present illness Narrative* Andrea Daley MD - 04/03/2024 2:15 PM EDT Images from the original note were not included. [address] [place] [address] [address] [facility] [id number] Patient: Kimberly Everett Date of : 1950 Encounter Date: 04/03/2024 History of Present Illness: The patient is a 73 y.o. female, an established patient, and is here for history angiomyolipoma. Has done well. No flank pain no gross hematuria. She did have unrelated hospitalization for arrhythmia. Has a pacemaker.. Summary of old records: Urinalysis today: Recent Labs 04/03/24 1430 EXTPOCURBS 3+ EXTPOCURBIL Negative EXTPOCUKET Negative EXTPOCUSPG 1.020 EXTPOCUPRO Negative EXTPOCUURO 0.2 EXTPOCUNIT Negative EXTPOCUBLD Negative EXTPOCUPH 6.0 EXTPOCULEE Negative Last BUN and creatinine: Lab Results Component Value Date BUN 22 03/03/2022 Lab Results Component Value Date CREATININE 0.75 03/03/2022 Last PSA: No results found for: PSA No results found for: PROSTATICSP Past Medical, Family, and Social History Update: The following portions of the patient's history were reviewed and updated as appropriate: allergies, current medications, past family history, past medical history, past social history, past surgicalhistory and problem list. 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 Mixed incontinence urge and stress Multiple thyroid nodules Pneumonia Rheumatic fever SOB (shortness of breath) Tachycardia Urinary tract infection Visual impairment glasses Weakness Past Surgical History: Procedure Laterality Date CHOLECYSTECTOMY CYSTOSCOPY CYSTOSCOPY RETROGRADE PYELOGRAM Bilateral 06/08/2018 Performed by Andrea Daley MD at [facility] CYSTOSCOPY RETROGRADE PYELOGRAM Bilateral 07/14/2017 Performed by Terrell Rodriguez MD at [facility] CYSTOSCOPY UM SOLUTION N/A 06/08/2018 Performed by Andrea Daley MD at [facility] DAVINCI REPAIR HERNIA VENTRAL N/A 03/24/2022 Performed by Andrea Gutiérrez DO at [facility] ESOPHAGOGASTRODUODENOSCOPY N/A 02/02/2022 Performed by Andrea Gutiérrez DO at [facility] EYE SURGERY 02/2018 drooping eyelids FOOT SURGERY FUSION TOE 1ST MPJ Left 10/29/2017 Performed by Madeleine Cee DPM at [facility] HERNIA REPAIR times 5 HYSTERECTOMY IMPACTED THIRD MOLAR REMOVAL KNEE SURGERY Left REMOVAL HARDWARE FOOT TOE Left 10/29/2017 Performed by Madeleine Cee DPM at [facility] REPAIR HAMM[place] FOOT Left 10/29/2017 Performed by Madeleine Cee DPM at [facility] SMALL INTESTINE SURGERY obstruction TONSILLECTOMY Family History Problem Relation Age of Onset Tuberculosis Mother Hyperlipidemia Mother Breast cancer Mother COPD Father Congenital heart disease Father Hypertension Father Hyperlipidemia Father Current Outpatient Medications Medication Sig Dispense Refill albuterol (PROVENTIL HFA;VENTOLIN HFA) 90 mcg/actuation inhaler Inhale 2 puffs every 6 (six) hours as needed for wheezing. amLODIPine (NORVASC) 5 mg tablet Daily apixaban (ELIQUIS) 5 mg tablet Twice daily ascorbic acid (VITAMIN C) 500 mg tablet Take 1 tablet (500 mg total) by mouth in the morning. aspirin 81 mg Take 1 tablet (81 mg total) by mouth in the morning. baclofen (LIORESAL) 10 mg tablet Take 1 tablet (10 mg total) by mouth 3 (three) times a day. baclofen 5 mg tablet Take 5 mg by mouth nightly. BIOTIN ORAL Take 1,000 mg by mouth 2 (two) times a day. budesonide-formoteroL (SYMBICORT) 160-4.5 mcg/actuation inhaler Symbicort 160 mcg-4.5 mcg/actuationHFA aerosol inhaler cholecalciferol, vitamin D3, (VITAMIN D3) 1,000 units tablet Take 1 tablet (1,000 Units total) by mouth in the morning and 1 tablet (1,000 Units total) before bedtime. cycloSPORINE (RESTASIS) 0.05 % ophthalmic emulsion 1 drop in the morning and 1 drop before bedtime. dicyclomine (BENTYL) 20 mg tablet Take 1 tablet (20 mg total) by mouth 3 (three) times a day. 5 empagliflozin (JARDIANCE) 10 mg tablet tablet Daily fluticasone propionate (FLONASE) 50 mcg/actuation nasal spray USE 1 SPRAY IN EACH NOSTRIL ONCE A DAY furosemide (LASIX) 40 mg tablet Take 1 tablet (40 mg total) by mouth 2 (two) times a day as needed. ipratropium (ATROVENT) 21 mcg (0.03 %) nasal spray Administer 2 sprays into each nostril every 12 (twelve) hours. isosorbide mononitrate (IMDUR) 30 mg 24 hr tablet Take 2 tablets (60 mg total) by mouth daily. loperamide (IMODIUM) 2 mg capsule Take 1 capsule (2 mg total) by mouth in the morning. Take one capsule by mouth every day for 10 days.. losartan (COZAAR) 50 mg tablet Take 1 tablet (50 mg total) by mouth nightly. qdbasrcj-sybo-MV-calcium &mins (THERAGRAN-M) 9 mg iron-400 mcg tablet Take 1 tablet by mouth inthe morning. pantoprazole (PROTONIX) 40 mg EC tablet daily. potassium chloride (K-DUR,KLOR-CON) 10 MEQ CR tablet Take 1 tablet (10 mEq total) by mouth in the morning. traZODone (DESYREL) 50 mg tablet TAKE 1-2 TABLETS BY MOUTH 1 HOUR BEFORE BEDTIME 2 TRELEGY ELLIPTA 100-62.5-25 mcg blister with device INHALE 1 PUFF BY MOUTH ONCE A DAY colestipoL (COLESTID) 1 g tablet Take 1 g by mouth in the morning. (Patient not taking: Reported on04/03/2024) ibuprofen (ADVIL,MOTRIN) 200 mg tablet Take 200 mg by mouth every 6 (six) hours as needed for pain.(Patient not taking: Reported on 04/03/2024) ibuprofen (MOTRIN) 800 mg tablet Take 1 tablet (800 mg total) by mouth every 8 (eight) hours as needed for pain. (Patient not taking: Reported on 04/03/2024) 20 tablet 0 nitrofurantoin, macrocrystal-monohydrate, (MACROBID) 100 mg capsule One tablet twice a day for 5-7 days. Start first sign of infection 50 capsule 1 oxyCODONE-acetaminophen (PERCOCET) 5-325 mg per tablet Take 1 tablet by mouth every 6 (six) hours as needed for pain for up to 12 doses. Max Daily Amount: 4 tablets (Patient not taking: Reported on 04/03/2024) 12 tablet 0 vitamin E 100 units capsule Take 100 Units by mouth in the morning. (Patient not taking: Reported on 04/03/2024) No current facility-administered medications for this visit. (All medications reviewed and updated by provider since last office visit or hospitalization) Allergies: Clindamycin, Adhesive, Amoxicillin, Azithromycin, Bactrim [sulfamethoxazole- trimethoprim], Cyproheptadine, Flagyl [metronidazole], Mobic [meloxicam], Bacitracin, Hibiclens [chlorhexidine gluconate], Latex, Neosporin (vlf-mpg-uvkyr) [frbzeuxa-lirpnjsuchu-qyubzcfnp], and Sulfa (sulfonamide antibiotics) Tobacco History: Social History Tobacco Use Smoking Status Former Current packs/day: 0.00 Average packs/day: 1 pack/day for 13.0 years (13.0 ttl pk-yrs) Types: Cigarettes Start date: 08/09/1987 Quit date: 08/09/2000 Years since quittin.6 Smokeless Tobacco Never (If patient a smoker, smoking cessation counseling offered) Social History: Social History Substance and Sexual Activity Alcohol Use Not Currently Review of Systems: General: Negative for chills and fever. Cardiovascular: Negative for chest pain and shortness of breath. Gastrointestinal: Positive for diarrhea Positive for constipation -per HPI Physical Exam: BP 153/78 Pulse 75 Ht 154.9 cm (5' 1 ) Wt 75.3 kg (166 lb) BMI 31.37 kg/m General Alert., Cooperative. Not in acute distress. Non-toxic. Orientation - Oriented X3. Head and Neck Normocephalic, atraumatic with no lesions. No abnormal movements. Trachea - midline. Integumentary Normal coloration of skin. Skin Moisture - normal skin moisture. Chest and Lung Exam Quiet, even and easy respiratory effort with no use of accessory muscles. Neurologic NON-focal Assessment and Plan: Nickie was seen today for follow-up. Diagnoses and all orders for this visit: UTI symptoms - POCT Urinalysis Auto, W/O Microscopy Renal angiomyolipoma - Ultrasound retroperitoneal complete; Future - Ultrasound retroperitoneal complete; Future Urinary tract infection without hematuria, site unspecified - Ultrasound retroperitoneal complete; Future - Urine Culture; Standing Other orders - nitrofurantoin, macrocrystal-monohydrate, (MACROBID) 100 mg capsule; One tablet twice a day for 5-7 days. Start first sign of infection Problem List High Urinary tract infection without hematuria Overview ==== 04/03/2024 ==== use self start therapy twice since last visit. Although currently she feels like she may have UTI some dysuria some itching. Interestingly urinalysis looks good except for 3+ sugar. Plan: Urine for culture. Patient certainly can take her self start therapy. Have her see her PCP regarding blood sugar. ==== 10/06/2021 ==== doing well. Will see her back in 1.5 yr. Refill her macrobid prior to next appt. ==== 06/16/2021 ==== has had some uncomplicated UTI that is treated successfully with self start therapy. She is on cranberry supplementation. No fever with these. Continue current course. ==== 03/12/2021 ==== refilled her medication should she need this self start therapy. ====05/29/20===Doing well with self start Macrobid which I refilled today ==== 02/28/2018 ==== Established problem, worsening. Recent UTI with gross hematuria. She in on antibiotics. ua is negative for infection. PLAN: urine for culture. Cystoscopy. [facility] bladder solution. Cranberry supplementation. Increase her antibiotic from q.h.s. to b.i.d. for the next 7 days. ====05/03/18====E. Coli x 2 with recurrent symptoms now--we will culture the urine, start Cipro 500mg BID x 10 days and call w/results--I did encourage her to pursue the cystoscopy/possible BRP/U of Msolution given passage of tissue/blood w/current symptoms--she is agrees to allow me to order. ==== 06/22/2018 ==== Cysto and U-M solution. Cysto without cystitis. No evidence of any mesh erosion. Negative bilateral retrograde pyelogram. Patient feels like she is having some back discomfort that may proceed UTI. Will send urine for culture dipstick was negative. She is on cranberry supplements. ==== 12/21/2018 ==== : cranberry supplements and self start macrobid---since this no need for abx. Doing great. ==== 06/21/2019 ==== Established problem, worsening. has had in the interim above 4 times with the UTIs. Self start therapy longer course is required. Some back discomfort lower back as well. No fevers. Plan: Increase her Macrobid self start duration to 5 days. Renal ultrasound as well. Return to clinic. Standing order for urine culture prior. pvr 49cc Relevant Medications nitrofurantoin, macrocrystal-monohydrate, (MACROBID) 100 mg capsule Other Relevant Orders Ultrasound retroperitoneal complete Urine Culture Renal angiomyolipoma Overview ==== 04/03/2024 ==== no interval gross hematuria flank pain. She has some lower back discomfort. Will just going to ultrasound to check ==== 10/06/2021 ==== stable 1.5 cm renal angiomyolipoma. Again discussed with patient potential riskof hemorrhage regarding size in the need for surveillance. Patient wishes to have delay in imaging ==== 03/12/2021 ==== no interval ultrasound no gross hematuria. Rationale for serial follow-up discussed with patient. Repeat study September or October of 2021 ====05/29/20===Overdue for surveillance. She agrees to be scheduled. This will assess for any urologic source for her back pain as well Renal ultrasound: 1.2 cm hyperechoic lesion left kidney October 08: Status post CT scan: Left lower pole angiomyolipoma. July 10: Renal ultrasound demonstrating increased size of angiomyolipoma measuring 1.7 cm. Previously measured 1.2 x 1.2 x 1 cm. ==== 02/28/2018 ==== ultrasound February 2018 stable 1.7 cm left lower pole angiomyolipoma ==== 06/21/2019 ==== due for ultrasound. This was ordered. Turn clinic after. Relevant Orders Ultrasound retroperitoneal complete Ultrasound retroperitoneal complete Follow-up: Urine for culture today. Renal ultrasound soon Renal ultrasound 1 year return clinic Andrea Daley MD 2 or more chronic urologic conditions addressed today. Prescription drug management performed during today's office visit This note was created with the assistance of a speech recognition program. While intending to generate a timely document that accurately reflects the content of the visit, no guarantee can be provided that every grammatical or spelling mistake has been or will be identified or corrected. Thank you for your understanding. documented in this encounterUniversity Hospitals TriPoint Medical CenterBelle '[facility] La [facility]age [facility] [id number] History of Present illness Narrative* Bartolo Ramírez MD - 03/29/2024 1:00 PM EDT Images from the original note were not included. CHIEF COMPLAINT REASON FOR VISIT: muscle pain HPI: Kimberly Everett is a 73 y.o. female who presents for a follow up. She states she had a pacemaker put in back in October at [facility] She states she has lost a lot of weight and is maintaining it. She is down 11 lbs from her last appointment. . She states the pacemaker helped for a while around then. But recently she is tired and dragging again. She states she has been more short of breath. States that they want her to go back on eliquis but she does not like how she feels on it. It makes her very tired. States that she is on Jardiance. States she does not go back to see cardiology untilnext year. She states that she is having some numbness and tingling in her right hand to her elbow.She states she is having numbness on the right side of her face. CURRENT MEDICATIONS: ALLERGIES/DISCONTINUE MEDICATIONS Current Outpatient Medications Medication Instructions albuterol HFA 90 mcg/act inhaler 2 puffs, Inhalation, Every 4 hours PRN amLODIPine (NORVASC) 5 mg, Every 24 hours aspirin 81 mg, Oral, Daily baclofen (Lioresal) 10 MG tablet TAKE 1 TABLET IN THE MORNING, AT NOON, IN THE EVENING, AND 1 BEFORE BEDTIME baclofen (LIORESAL) 5 mg, Oral, 3 times daily Biotin Maximum Strength 53440 MCG tablet TAKE 1 TABLET (10 MG) BY MOUTH IN THE MORNING AND BEFORE BEDTIME colestipol (Colestid) 1 g tablet Every 24 hours cycloSPORINE (Restasis) 0.05 % ophthalmic emulsion Every 12 hours Eliquis 5 mg, Oral, 2 times daily empagliflozin (Jardiance) 10 MG Daily Frulzhuyhue-Jkhkrzdrm-Xflnan (Trelegy Ellipta) 100-62.5-25 MCG/INH aerosol powder Trelegy [...] 10 MEQ ER tablet Every 12 hours traZODone (Desyrel) 50 MG tablet TAKE 1 TABLET BY MOUTH EVERY DAY AT BEDTIME NEEDED FOR 90 DAYS Allergies Allergen Reactions Amoxicillin Unknown Aspirin Unknown Azithromycin Unknown Bacitracin Unknown Chlorhexidine Other Reaction(s): Rash Clavulanic Acid Other Reaction(s): Rash Clindamycin Unknown Cyproheptadine Cramping, muscle pain Latex Unknown Meloxicam Unknown Metronidazole Unknown Montelukast Other Reaction(s): Rash Neomycin Unknown Polymyxin B Unknown Sulfa Antibiotics Unknown Other Reaction(s): Hives Sulfamethoxazole-Trimethoprim Wound Dressing Adhesive [...] / REMOVE PACEMAKER 11/04/2023 DR CARTAGENA - [facility] KNEE SURGERY Arthroscopy knee [place] SHOULDER SURG PROC UNLISTED Right :cyst right [...] REVIEW OF SYMPTOMS: Review of Systems Constitutional: Positive for fatigue. Negative for chills, diaphoresis and fever. HENT: Negative for ear pain, [...] for agitation, confusion and suicidal ideas. OBJECTIVE: 03/29/2024 1:06 PM 10/25/2023 1:51 PM 08/19/2023 2:26 PM Vitals BMI 28.34 kg/m2 30.42 kg/m2 30.42 kg/m2 BSA (m2) 1.71 m2 1.77 m2 1.77 m2 Systolic 142 130 Diastolic 78 78 Height (in) 5' 1 Weight (lb) 150 161 161 Visit Report Report EXAM: Neurological Exam Mental Status Awake, alert and oriented to person, place and time. Oriented to person, place and time. Recent andremote memory are intact. Speech is normal. Language is fluent with no aphasia. Attention and concentration are normal. Cranial Nerves CN II: Visual acuity is normal. Visual aldana full to confrontation. CN III, IV, : [...] reflexes: Dimitris's absent. Ankle clonus absent. Coordination Ycdupo-ek-jzbk, rapid alternating movements and ozfl-sm-mwto normal bilaterally without dysmetria. Gait Normal casual, toe, heel and tandem gait. Romberg is absent. PROCEDURE: NONE ASSESSMENT AND PLAN: Diagnoses and all orders for this visit: Muscle spasm Continue baclofen (Lioresal) 5 MG tablet; Take 1 tablet (5 mg) by mouth in the morning and 1 tablet(5 mg) before bedtime. Start dexAMETHasone (Decadron) 2 MG tablet; Take 1 tablet (2 mg) by mouth Daily for 7 days I counseled the patient on the possible side effects and interactions of medications. Total time 20 minutes spent reviewing records, performing medically appropriate exam, counseling , education, ordering medication, tests, and/or procedures, documenting health information into the health record, communicating results to the patient, and coordinating care. Follow up 3 months. documented in this encounterShriners Hospitals for [id number] Telephone encounter Note* Telephone Encounter - Tracy Torres - 03/10/2024 4:33 PM EDT 2ND ATTEMPT PER CX/GAGAN LIST 05/08/2024 WILL BE UNAVAILABLE REACHED OUT TO PATIENT TOASSIST WITH SCHEDULING SPOKE WITH PATIENT SHE OKAY'D NEW APPT DATE. [facility]08-02-2024 Miscellaneous Notes* Telephone Encounter - Tracy Torres - 03/10/2024 4:33 PM EDT 2ND ATTEMPT PER CX/GAGAN LIST 05/08/2024 WILL BE UNAVAILABLE REACHED OUT TO PATIENT TOASSIST WITH SCHEDULING SPOKE WITH PATIENT SHE OKAY'D NEW APPT DATE. documented in this encounter[facility] Telephone encounter Note * Telephone Encounter - Tracy Torres - 03/07/2024 2:08 PM EDT 1ST ATTEMPT PER CX/GAGAN LIST 05/08/2024 WILL BE UNAVAILABLE REACHED OUT TO PATIENT TOASSIST WITH SCHEDULING, UNABLE TO REACH HER A VM WAS LEFT WITH CALL BACK NUMBER. [facility]07-30-2024 Miscellaneous Notes* Telephone Encounter - Tracy Torres - 03/07/2024 2:08 PM EDT 1ST ATTEMPT PER CX/GAGAN LIST 05/08/2024 WILL BE UNAVAILABLE REACHED OUT TO PATIENT TOASSIST WITH SCHEDULING, UNABLE TO REACH HER A VM WAS LEFT WITH CALL BACK NUMBER. documented in this encounterSelect [facility] Note* Addendum Note - Garland Lockett MD - 12/16/2023 3:58 PM EDTAddended by: GARLAND LOCKETT on: 12/16/2023 03:58 PM Modules accepted: Orders [facility]05-09-2024 Miscellaneous Notes* Addendum Note - Garland Lockett MD - 12/16/2023 3:58 PM EDTAddended by: GARLAND LOCKETT on: 12/16/2023 03:58 PM Modules accepted: Orders * Telephone Encounter - Nel Bray RN - 12/16/2023 3:48 PM EDT Contacted patient who states she already has 'bleeding issues; when I get cut I bleed a lot'. Denies any life threatening bleeding, GI bleeding or intracranial bleeding. Open to taking eliquis for stroke protection. Requests script be sent to EROS Mack in chart. Susan SERVIN * Telephone Encounter - Nel Bray RN - 12/16/2023 3:48 PM EDT ----- Message from Garland Lockett MD sent at 12/16/2023 2:30 PM EDT ----- Regarding: RE: AF Thanks DimpleGinger Davis - can you please see if [...] AF in the past and her other database modeler never did anything about it. Just a little FYI. I assisted her to make an [employer] appt. On her way out today. She wants all of her care here now. I am going to get her set up with remotes also. DUAL LEAD PACEMAKER EVALUATION PRESENTS FOR: 4-6 week check PRESENTING EGM: /WEIGHER AND CHARGER UNDERLYING RHYTHM: SR BATTERY STATUS: Estimated time [...] are pain-free (0/10), well healed and without signsof erosion or infection. No arm swelling, syncope, pre- syncope or device related pocket stimulation. OTHER DIAGNOSTICS: RA pacing 1.8%. RV pacing 97.1% PROGRAMMING CHANGES MADE TODAY: RA/RV amplitude adjusted based on testing today, Acute phases Off, Partial + On FOLLOW UP: Will enroll in and order Relay, schedule 1st remote. Assisted patient to schedule [employer] appt. Thanks Dimple documented in this encounterSelect [facility]24 Telephone encounter Note * Telephone Encounter - Nel Bray RN - 12/16/2023 3:48 PM EDT Contacted patient who states she already has 'bleeding issues; when I get cut I bleed a lot'. Denies any life threatening bleeding, GI bleeding or intracranial bleeding. Open to taking eliquis for stroke protection. [facility] Susan SERVIN [facility]05-09-2024 Telephone encounter Note* Telephone Encounter - Nel Bray RN - 12/16/2023 3:48 PM EDT ----- Message from Garland Lockett MD sent [...] AF in the past and her other database modeler never did anything about it. Just a little FYI. I assisted her to make an [employer] appt. On her way out today. She wants all of her care here now. I am going to get her set up with remotes also. DUAL LEAD PACEMAKER EVALUATION PRESENTS FOR: 4-6 week check PRESENTING EGM: /WEIGHER AND CHARGER UNDERLYING RHYTHM: SR BATTERY STATUS: Estimated time [...] are pain-free (0/10), well healed and without signsof erosion or infection. No arm swelling, syncope, pre- syncope or device related pocket stimulation. OTHER DIAGNOSTICS: RA pacing 1.8%. RV pacing 97.1% PROGRAMMING CHANGES MADE TODAY: RA/RV amplitude adjusted based on testing today, Acute phases Off, Partial + On FOLLOW UP: Will enroll in [employer] and order Relay, schedule 1st remote. Assisted patient to schedule [employer] appt. Thanks Dimple [facility]05-09-2024 NoteDUAL LEAD PACEMAKER EVALUATION PRESENTS FOR: 4-6 week check PRESENTING EGM: /WEIGHER AND CHARGER UNDERLYING RHYTHM: SR BATTERY STATUS: Estimated time [...] + On FOLLOW UP: Will enroll in [employer] and order Relay, schedule 1st remote. Assisted patient to schedule [employer] appt. Dimple Hay RN NOTE TO PROVIDERS: CARD Flowsheets contain detailed device programming and testing data. Paceart/Interrogation PDF can be found under CARDIAC DATA AND REPORT, Scanned Documents section.[id number] Miscellaneous Notes* Telephone Encounter - Nelly Zavala Tech - 11/18/2023 10:26 AM EDT Post Implant follow up call: Date: 11/18/2023 [...] Dept Phone 12/16/2023 1:30 PM DEVICE CLINIC [facility] [phone] Any scheduling issues:No Questions moving forward: No Patient contacted at [phone] (home) Joy Núñez documented in this encounterSelect [facility]04-04-2024 Miscellaneous Notes* Telephone Encounter - Sofia Cherry RN - 11/11/2023 10:16 AM EDT We are calling to check on how [...] pool Non urgent and closing statement given. RN verified patients name and date of . Sofia Cherry RN documented in this encounterSelect [facility]04-03-2024 Miscellaneous Notes* Telephone Encounter - Gardenia Ford RN - 11/10/2023 11:19 AM EDT Patient reports the swelling is the same (not getting worse). Denies fever, drainage or redness. She has some mild soreness/tightness at the site due to the swelling. Yes it is ok to use an ice pack,recommended no more than 15 minutes at a time and to keep a barrier between the pack and her skin. Reviewed infection symptoms, patient will call back if any concerns for infection or if swelling worsens. documented in this encounterSelect [facility]04-01-2024 Miscellaneous Notes* Telephone Encounter - Sofia Cherry RN - 11/08/2023 1:29 PM EDT 1. Have you noticed any increase in [...] since you were discharged? (as we want youto be aware of any signs of infection) [...] -Yes All clear and closing statement given. RN verified patients name and date of . Sofia Cherry RN documented in this encounterSelect [facility]04-01-2024 History of Present illness Narrative* Foster Gutierrez RPh - 11/08/2023 7:35 AM EDT TRANSITION CARE MANAGEMENT (TCM) HEART FAILURE PHARMACY [...] (Patient to be counseled on new medications iffull medication review completed) Last documented LVEF: LV Ejection Fraction (%) Date Value 11/03/2023 70 Last documented weight: Last Wt 11/03/23 69 kg (152 lb 1.9 oz) Patient was sent a message via [employer] including the link to the [facility] Heart Failure education video: No Initial contact with patient post discharge, spoke to patient, and verified that any applicable caregiver is active in patient's medical care. Patient identified by name and . Summary: -Pt discharged from [facility] on 11/05/23. -Medication review done Full [...] are copied and pasted. Patient presented to [facility] on 11/01/23 following an office visit with [...] was recommended and patient requested transfer to [facility] Hospital Course: The patient was transferred to the [facility] and admitted to the inpatient Electrophysiology service on 11/03/23. Telemetry showed persistent 2:1 AV block with heart rates 40s.There was intermittent LBBB conduction noted on telemetry. [...] atrium and right ventricle. The patient was dischargedhome in stable condition. Medication Reconciliation: Legend: Stopped, [...] 10 mg by mouth daily with breakfast. hsnoiclbana-qtwcatmfr-mwseqmff (TRELEGY ELLIPTA) 200-62.5-25 mcg inhalation powder Inhale 1 Puff asinstructed once daily. furosemide (LASIX) 40 mg tablet Take 40 mg by mouth once daily. Last 3 Encounter BP Readings: Date: BP: 11/02/2023 168/09/09/2016 146/02/18/2016 138/78 Potassium Date Value Ref Range Status 11/05/2023 3.8 3.7 - 5.1 mmol/L Final hyoscyamine sublingual (LEVSIN SL) 0.125 mg Dissolve 0.125 mg under the tongue three times a day. Ipratropium [place] (ATROVENT) 21 mcg (0.03 %) nasal spray Use 2 Sprays in the nose once daily. isosorbide mononitrate ER (IMDUR) 60 mg 24 hr tablet Take 60 mg by mouth once daily. Last 3 Encounter BP Readings: Date: BP: 11/02/2023 168/09/09/2016 14602/18/2016 138/78 loperamide (ANTI-DIARRHEAL) 2 mg cap(s) Take 2 mg by mouth once daily. Loratadine 10mg tablet Take 1 tablet by mouth once daily Added to medication list losartan (COZAAR) 100 mg tablet Take 100 mg by mouth once daily. Last 3 Encounter BP Readings: Date: BP: 11/02/2023 168/71 09/09/2016 14685 02/18/2016 138/78 Potassium Date Value Ref Range [...] by mouth daily at bedtime. Preferred pharmacy: [facility] [facility]/pharmacy #[id number] [place] [address] - [address] - [phone] [place] [address] [address] [facility] [id number] Estimated Creatinine Clearance: 59.1 mL/min (based on SCr of 0.78 mg/dL). Estimated Glomerular Filtration Rate (mL/min/1.73m ) Date Value 11/05/2023 81 eGFR- (no units) Date Value 12/18/2015 53 Additional follow up: Next 5 Appointments Date and Time Provider Department Dept Phone 12/16/2023 1:30 PM DEVICE CLINIC [facility] [phone] Interventions Made: Patient education/Medication counseling Pharmacist Recommendations Made OTC medication recommendation Care Coordination: None at this time Time spent on patient: 30-45 minutes Foster Gutierrez RPh November 08, 2023 8:00 AM documented in this encounterSelect [facility]01-29-20[facility] Chief Complaint: Patient here [...] essentially stable with no new symptoms. Her rn integrated recently uptitrated her inhaler therapy. Cardiology ROS: [...] Bacitracin-polymyxin b, Chlorhexidine gluconate, Latex, Meloxicam, Metronidazole, Uxlrposq-cijonyabel-nydkueibs, Archjgfr-ogkxvgzlbro-duhzgpmio, and Sulfa (sulfonamide antibiotics) Medications Current Outpatient [...] septum is abnormal i (more content not included)...[facility]12-27-2023 Evaluation note* Encounter Date Diagnosis Assessment Notes Treatment Notes Treatment Clinical Notes Jul, Other idiopathic scoliosis, lumb ar region (ICD-10 - M41.26) [employer] Other 12-12-2023 Evaluation note* Encounter Date Diagnosis Assessment Notes Treatment Notes Treatment Clinical Notes Jul, Chronic obstructive pulmonary di sease (ICD-10 - J44.9) Jul,OSA (obstructive sleep apnea) (ICD-10 - G47.33) Jul,bnormal CXR (ICD-10 - R93.89) Jul,trial fibrillation (ICD-10 - I48.91) [employer] Other 12-06-2023 Evaluation note* Encounter Date Diagnosis Assessment Notes Treatment Notes Treatment Clinical Notes Jul, GERD (gastroesophageal reflux di sease) (ICD-10 - K21.9) Jul,Well adult exam (ICD-10 - Z00.00)72-year-old female who has several medical conditions but is doing well with her current medicationregimen. She denies any acute issues or concerns no history of present physical exam today. Patientcompleted lab work prior to next plan. Her recent lab work was reviewed with her and is all within normal limits. She will follow-up in 6 months or sooner if medication arises. Jul,hronic obstructive pulmonary disease (ICD-10 - J44.9) Jul,Essential hypertension (ICD-10 - I10) Jul,OSA (obstructive sleep apnea) (ICD-10 - G47.33) Jul,trial fibrillation (ICD-10 - I48.91) Jul,olyarthritis (ICD-10 - M13.0) Jul,Syrinx of spinal cord (ICD-10 - G95.0) Jul,Irritable bowel syndrome with diarrhea (ICD-10 - K58.0) Jul,sychophysiological insomnia (ICD-10 - F51.04) Jul,hronic fatigue (ICD-10 - R53.82) Jul,Medication monitoring encounter (ICD-10 - Z51.81) [facility] Other 11-09-2023 Evaluation note* Encounter Date Diagnosis Assessment Notes Treatment Notes Treatment Clinical Notes Jun, Bruit of left carotid artery (IC D-10 - R09.89) Given her carotid bruit on the left and her ruptured blood vessel on the right I we will get carotid ultrasound and we will review the results with her once obtained. 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) [facility] Other 10-17-2023 Evaluation note* Encounter Date Diagnosis Assessment Notes Treatment Notes Treatment Clinical Notes May, Irritable bowel syndrome with di arrhea (ICD-10 - K58.0) [facility] Other 10-02-2023 Evaluation note* Encounter Date Diagnosis Assessment Notes Treatment Notes Treatment Clinical Notes May, Other idiopathic scoliosis, lumb ar region (ICD-10 - M41.26) [facility] Other 09-13-2023 Evaluation note* Encounter Date Diagnosis Assessment Notes Treatment Notes Treatment Clinical Notes Apr, Generalized abdominal pain (ICD- 10 - R10.84) [facility] Other 09-13-2023 Evaluation note* Encounter Date Diagnosis Assessment Notes Treatment Notes Treatment Clinical Notes Apr, Other idiopathic scoliosis, lumb ar region (ICD-10 - M41.26) [facility] Other 08-23-2023 Evaluation note* Encounter Date Diagnosis Assessment Notes Treatment Notes Treatment Clinical Notes Mar, Essential hypertension (ICD-10 - I10) Blood pressure well controlled on losartan 100 mg and amlodipine 5 mg daily, no changes to her medication regimen. Mar,olyarthritis (ICD-10 - M13.0)Patient has polyarthritis and needs work-up for autoimmune arthropathy. Lab work ordered today patient will be contacted with the results. Mar,Other idiopathic scoliosis, lumbar region (ICD-10 - M41.26)Patient is managing with 800 mg ibuprofen as needed for her back pain Mar,ERD (gastroesophageal reflux disease) (ICD-10 - K21.9)Patient is doing well on pantoprazole 40 mg daily and she will continue with this. Mar,sychophysiological insomnia (ICD-10 - F51.04)Patient is doing well on trazodone 50 mg daily she is to continue with this. Mar,Syrinx of spinal cord (ICD-10 - G95.0)Patient wants to go back to Dr. Ramírez who she used to see for this issue and a referral was placed. Mar,Screening mammogram for breast cancer (ICD-10 - Z12.31)Patient is due for screening mammogram and this was ordered today. She will be contacted with results. [facility] Other 08-21-2023 Evaluation note* Encounter Date Diagnosis Assessment Notes Treatment Notes Treatment Clinical Notes Mar, Irritable bowel syndrome with di arrhea (ICD-10 - K58.0) Pt states she is still dealing with diarrhea Pt advised to take hyosycamine QID Pt advised to take imodium prn Pt advised to take a probiotic capsule Pt advised to use wet wipes versus toilet paper Pt states that she did bleed a little bit in the rectum Pt RTO in 6 months [facility] Other 08-04-2023 NoteStable without any worsening SOB [facility]08-04-2023 NoteF/U with PCP and pulmonary [facility]08-04-2023 NoteCoronary artery disease is stable Continue GDMT- ASA, imdur continue risk factor modifications- heart healthy diet, regular exercise as tolerated and continue all medications.[facility] 03-12-2023 NoteStable no acute [facility]Un[facility] 03-12-2023 NoteHypertension is well controlled 134/83 Continue meds- losartan 100 mg, lasix, amlodipineUnHarrison [facility]08-04-2023 NoteUTP CARDIOLOGY PROGRESS NOTE HPI: Kimberly Everett [...] good and is about the same . Artist Relationship Manager increased Trelegy dose. mild CAD per 08/2019 [...] Rash Metronidazole Hives, Itching, Rash and Unknown Bfyipxbs-Fzxycdzstk-Rpjvwwjum Rash Ifajiqjj-Zlelkatvhzz-Dyjqzgkag Rash Sulfa (Sulfonamide Antibiotics) Hives, Rash and [...] PUFF INTO THE LUNGS EVERY DAY [DISCONTINUED] nxmturtafql-rjmcomdso-dqscytfy 100-62.5-25 mcg blister with device Inhale 100 [...] warm and dry. Capi (more content not included)...[facility]08-04-2023 NotePatient here for 3 week follow up CHF and med changes. She was started on lasix at last visit with Epfianio Lozada CNP. She had BMP a week later. She states the leg cramps were do bad so she's taking lasix every 2-3 days. Says her breathing is pretty good and is about the same . Artist Relationship Manager increased Trelegy dose. Review of Systems Cardiovascular: Positive for chest pain and leg swelling. Musculoskeletal: Positive for arthritis, muscle cramps and muscle weakness. Neurological: Positive for light-headedness. All other systems reviewed and are negative.[facility] 02-23-2023 Evaluation note* Encounter Date Diagnosis Assessment Notes Treatment Notes Treatment Clinical Notes Feb, Chronic obstructive pulmonary di sease (ICD-10 - J44.9) [facility] Other 07-17-2023 NoteCardiology Clinic Note Subjective Kimberly Everett is a 72 y.o. year old female patient With nonobstructive coronary artery disease, hypertension, left bundle branch block, COPD and obstructive sleep apnea seen in follow-up. Patient Active Problem List Diagnosis Acute bronchitis KANU (acute kidney injury) ([facility]) Hammertoe of left foot Chronic obstructive pulmonary disease ([facility]) Dyspnea Hypertension Left bundle branch block Midline [...] has worsening dyspnea on exertion since around [place] She has seen pulmonology and recommended cardiology [...] Rash Metronidazole Hives, Itching, Rash and Unknown Eyzysipr-Kxnsgfftqy-Iiuxnrsrl Rash Aucadgff-Lybainjwexi-Pkdmfpvbv Rash Sulfa (Sulfonamide Antibiotics) Hives, Rash and [...] nasal spray, 50 sprays., Disp: , Rfl: smktfvdlxat-qheezlutn-xxjlkidn 100-62.5-25 mcg blister with device, Inhale 100 [...] mouth every 8 ( (more content not included)...[facility]05-22-2023 NoteCardiovascular Medicine [facility] SUBJECTIVE Chief Complaint Patient presents with [...] she was told that they had seen a.fib. She hasn't been having palpitations. She has [...] Rash Metronidazole Hives, Itching, Rash and Unknown Ppcqlecg-Gpbryayrwp-Cehvjeglz Rash Wrnuawvt-Nivvgyjzgem-Larymuaxa Rash Sulfa (Sulfonamide Antibiotics) Hives, Rash and [...] nasal spray, 50 sprays., Disp: , Rfl: nelhjrryqdk-jxfnakdil-lgvfruax 100-62.5-25 mcg blister with device, Inhale 100 [...] , Rfl: predniSONE (Deltasone (more content not included)...[facility]05-22-2023 NotePatient is here today for shortness of breath. Review of Systems Constitutional: Positive for malaise/fatigue. Cardiovascular: Positive for chest pain. Respiratory: Positive for shortness of breath. Neurological: Positive for headaches, loss of balance and numbness. All other systems reviewed and are negative.[facility] 10-22-2022 Evaluation note* Encounter Date Diagnosis Assessment Notes Treatment Notes Treatment Clinical Notes Oct, Other idiopathic scoliosis, lumb ar region (ICD-10 - M41.26) [facility] Other 12-15-2022 Evaluation note* Encounter Date Diagnosis Assessment Notes Treatment Notes Treatment Clinical Notes Jul, Other idiopathic scoliosis, lumb ar region (ICD-10 - M41.26) [facility] Other 12-05-2022 Evaluation note* Encounter Date Diagnosis Assessment Notes Treatment Notes Treatment Clinical Notes Jul, Diarrhea (ICD-10 - R19.7) [facility] Other 12-02-2022 Evaluation note* Encounter Date Diagnosis Assessment Notes Treatment Notes Treatment Clinical Notes Jul, Diarrhea (ICD-10 - R19.7) [facility] Other 11-30-2022 Evaluation note* Encounter Date Diagnosis Assessment Notes Treatment Notes Treatment Clinical Notes Jun, Acute non-recurrent frontal sinu sitis (ICD-10 - J01.10) Jun,Essential hypertension (ICD-10 - I10)58-tspy-tgq-year-old female seen in the office today for follow-up of her hypertension she was recently changed to losartan with hydrochlorothiazide this did not do well for her so she was then placed back on losartan 100 mg and then she was added with Norvasc 5 mg orally daily. She states that sheis doing well with these medications and does not have any side effects or concerns at this time. Her blood pressure looks well controlled. Her lab work was reviewed with her today and is within normal limits. Advised that we will follow-up in 6 months. [facility] Other 10-24-2022 Evaluation note* Encounter Date Diagnosis Assessment Notes Treatment Notes Treatment Clinical Notes May, Essential hypertension (ICD-10 - I10) [facility] Other 10-17-2022 Evaluation note* Encounter Date Diagnosis Assessment Notes Treatment Notes Treatment Clinical Notes May, Irritable bowel syndrome with di arrhea (ICD-10 - K58.0) [facility] Other 09-19-2022 Evaluation note* Encounter Date Diagnosis Assessment Notes Treatment Notes Treatment Clinical Notes Apr, Other idiopathic scoliosis, lumb ar region (ICD-10 - M41.26) Apr,Essential hypertension (ICD-10 - I10) Apr,GERD (gastroesophageal reflux disease) (ICD-10 - K21.9) Apr,Insomnia due to other mental disorder (ICD-10 - F51.05) [facility] Other 09-06-2022 Evaluation note* Encounter Date Diagnosis Assessment Notes Treatment Notes Treatment Clinical Notes Apr, Chronic obstructive pulmonary di sease (ICD-10 - J44.9) Apr,SA (obstructive sleep apnea) (ICD-10 - G47.33) Apr,bnormal CXR (ICD-10 - R93.89) [facility] Other 07-21-2022 Evaluation note* Encounter Date Diagnosis Assessment Notes Treatment Notes Treatment Clinical Notes Feb, Essential hypertension (ICD-10 - I10) Patient's blood pressure is slightly elevated today and she stopped a new blood pressure medicationrecently given to her by her database modeler that she can remember the name of. I advised that we stopher lisinopril 10 mg due to potential risk of causing a dry cough especially with her COPD issue and place her on losartan 50 mg daily to help better control her blood pressure. Patient is in agreement with this and she will call me if she has any problems with the switch in medication. Feb,reoperative clearance (ICD-10 - Z01.818)Patient presents for preoperative assessment for upcoming ventral hernia surgery. Patient does have several chronic medical conditions that are being treated and monitored. Currently she is in acceptable health and based on her revised cardiac risk index and AHA cardiac risk class as well as the [place] arrest classification she has less than 1% risk of cardiac problems intraoperatively and posto peratively. For her surgical lung injury prediction she does have a 2.6% risk of lung injury intraoperatively and postoperatively but she is currently able to go up and down her basement steps without significant difficulty. Examination today is completely normal. Patient has an acceptable risk forthe planned procedure and pending her screening labs and EKG I have no concerns or issues with her undergoing this operation. If her screening labs or EKG show any significant abnormalities and thesewill need to be addressed. [facility] Other 07-20-2022 Evaluation note* Encounter Date Diagnosis Assessment Notes Treatment Notes Treatment Clinical Notes Feb, Chronic obstructive pulmonary di sease (ICD-10 - J44.9) [facility] Other 06-15-2022 Evaluation note* Encounter Date Diagnosis Assessment Notes Treatment Notes Treatment Clinical Notes Jan, Chronic obstructive pulmonary di sease (ICD-10 - J44.9) [facility] Other 06-02-2022 Evaluation note* Encounter Date Diagnosis Assessment Notes Treatment Notes Treatment Clinical Notes Jan, Chronic obstructive pulmonary di sease (ICD-10 - J44.9) Jan,2OSA (obstructive sleep apnea) (ICD-10 - G47.33) Jan,bnormal CXR (ICD-10 - R93.89) [facility] Other 05-26-2022 Evaluation note* Encounter Date Diagnosis Assessment Notes Treatment Notes Treatment Clinical Notes December, Other idiopathic scoliosis, lumb ar region (ICD-10 - M41.26) [facility] Other 05-16-2022 Evaluation note* Encounter Date Diagnosis Assessment Notes Treatment Notes Treatment Clinical Notes December, Chronic obstructive pulmonary di sease (ICD-10 - J44.9) December,2OSA (obstructive sleep apnea) (ICD-10 - G47.33) December,bnormal CXR (ICD-10 - R93.89) [facility] Other 05-12-2022 Evaluation note* Encounter Date Diagnosis Assessment Notes Treatment Notes Treatment Clinical Notes December, Irritable bowel syndrome with di arrhea (ICD-10 - K58.0) CONTIUE COLESTIDE BUT TAKE 1 1/2 TABLETS DAILY-MAY ADJUST DOSAGE IF NEEDED RTO 4-5 MONTHS [facility] Other 05-09-2022 Evaluation note* Encounter Date Diagnosis Assessment Notes Treatment Notes Treatment Clinical Notes December, Essential hypertension (ICD-10 - I10) Blood pressures well controlled on lisinopril 5 mg twice daily. December,acroiliac pain (ICD-10 - M53.3)Patient is having right-sided SI joint pain and this was explained to her. She would like to try rehab exercises before doing an injection. She was given a rehab exercise handout. December,hronic obstructive pulmonary disease (ICD-10 - J44.9)Patient is following with pulmonology for COPD. She does state that she has had some increased shortness of breath and I encouraged her to discuss this with her rn integrated the next time she sees him which is coming up soon. Patient does acknowledge some increased work of breathing at times and when this occurs is when the pain in the neck is more noticeable. Patient has no JVD on physical examand there is no concern of cardiac or heart failure issues I agree with the database modeler on this. December,GERD (gastroesophageal reflux disease) (ICD-10 - K21.9)Patient's reflux is well controlled on pantoprazole 40 mg and she is to continue with this. N regimen she will continue with it. December,creening mammogram for breast cancer (ICD-10 - Z12.31)Patient is due for screening mammogram and this was ordered for her today. December,SA (obstructive sleep apnea) (ICD-10 - G47.33)Will retest a sleep study to get patient a CPAP machine back as I suspect that this is contributing to some of patient's issues and concerns. [facility] Other 04-28-2022 Evaluation note* Encounter Date Diagnosis Assessment Notes Treatment Notes Treatment Clinical Notes Nov, GERD (gastroesophageal reflux di sease) (ICD-10 - K21.9) Nov,Insomnia due to other mental disorder (ICD-10 - F51.05) Nov,Essential hypertension (ICD-10 - I10) [facility] Other 03-03-2022 Evaluation note* Encounter Date Diagnosis Assessment Notes Treatment Notes Treatment Clinical Notes Oct, Chronic rhinitis (ICD-10 - J31.0 ) Patient does not have any signs or symptoms consistent with a bacterial sinus infection and her issue appears to be continued chronic rhinitis most likely from an allergic source. She was instructed she could try a different iibg-sgj-uqgnncx antiallergy medicine such as Iza but I also will place her on ipratropium bromide nasal spray. She is to call and return if not improving. Oct,rimary osteoarthritis of right knee (ICD-10 - M17.11) [facility] Other 12-10-2021 Evaluation note* Encounter Date Diagnosis Assessment Notes Treatment Notes Treatment Clinical Notes Jul, Diarrhea (ICD-10 - R19.7) [facility] Other 11-29-2021 Evaluation note* Encounter Date Diagnosis Assessment Notes Treatment Notes Treatment Clinical Notes Jun, Essential hypertension (ICD-10 - I10) [facility] Other 11-17-2021 Evaluation note* Encounter Date Diagnosis Assessment Notes Treatment Notes Treatment Clinical Notes Jun, Irritable bowel syndrome with di arrhea (ICD-10 - K58.0) Continue Dicyclomine and Colestipol Start otc probiotic daily Continue Gas-X prn Follow up in 6 months [facility] Other 11-15-2021 Evaluation note* Encounter Date Diagnosis Assessment Notes Treatment Notes Treatment Clinical Notes Jun, Chronic obstructive pulmonary di sease (ICD-10 - J44.9) Jun,OSA (obstructive sleep apnea) (ICD-10 - G47.33) [facility] Other 04-28-2014 History of Past illness Narrative* Problem Noted DateResolved DateVentral fnjdet62documented as of this encounter (statuses as of 05/19/2022) [facility] History of Past illness Narrative* ProblemNoted Date Diagnosed DateResolved DateVentral rpejof52documented as of this encounter (statuses as of 11/08/2023) [facility]28[facility] History of Past illness Narrative* ProblemNoted Date Diagnosed DateResolved DateVentral kfyyix08documented as of this encounter (statuses as of 11/09/2023) [facility] History of Past illness Narrative* ProblemNoted Date Diagnosed DateResolved DateVentral gfjtvr82documented as of this encounter (statuses as of 11/10/2023) [facility] History of Past illness Narrative* ProblemNoted Date Diagnosed DateResolved DateVentral dflzqh58documented as of this encounter (statuses as of 11/12/2023) [facility] History of Past illness Narrative* ProblemNoted Date Diagnosed DateResolved DateVentral cnshfj02documented as of this encounter (statuses as of 11/18/2023) [facility] noteNo InformationNort [employer] Other evaluation noteNonortheast [facility] [employer] Other Evaluation noteNo assessment information available [facility] Work Phone: evaluation noteNort [employer] Other Evaluation note* Diagnosis Muscle spasm Spasm of muscle documented [facility]* Diagnosis Onset Date Resolution Status CAD (coronary artery disease) chronicBradycardianoneactiveMuscle crampnoneactive [facility] Work Phone: Evaluation note* Diagnosis Onset Date Resolution Status CAD (coronary artery disease) chronicDyspnea on exertionnoneactiveBradycardianoneactiveMuscle crampnoneactive [facility] Work Phone: Evaluation note* Diagnosis Onset Date Resolution Status CAD (coronary artery disease) chronicDyspnea on exertionnoneactiveBradycardianoneactiveMuscle crampnoneactive Upper back yrlphrygpjfegw2rv degree AV blocknoneactiveChest painnoneactive Hypomagnesemianoneactive [facility] Work Phone: Evaluation note* Diagnosis Onset Date Resolution Status CAD (coronary artery disease) chronicDyspnea on exertionnoneactiveBradycardianoneactiveMuscle crampnoneactive Upper back ylwjxbrghjxjtc9oh degree AV blocknoneactiveChest painnoneactive HypomagnesemianoneactiveChest painacute [facility] Work Phone: Evaluation note* Diagnosis Onset Date Resolution Status CAD (coronary artery disease) chronicDyspnea on exertionnoneactiveBradycardianoneactiveMuscle crampnoneactive Upper back mystsnscoavsrv2uh degree AV blocknoneactiveChest painnoneactive Iguvchibvhlpppczigppoayx6kl degree AV blockchronicBradycardiachronicCAD (coronary artery disease)mtffrxmEytzyyqmbtvhaozfnfmefe3hb degree AV blockchronic BradycardiachronicChronic diastolic (congestive) heart failurechronicEssential hypertensionchronicPacemakerchronicHospital discharge follow-upnoneactive [facility] Work Phone: Evaluation note* Diagnosis Primary hypertension- Primary Unspecified essential hypertension documented in this encounter [facility]* Diagnosis Onset Date Resolution Status CAD (coronary artery disease) chronicDyspnea on exertionnoneactiveBradycardianoneactiveMuscle crampnoneactive Upper back uefryzhkxpkyvi2wi degree AV blocknoneactiveChest painnoneactive Ssjsxrwcdviepqrtxfoipnxc6kl degree AV blockchronicBradycardiachronicCAD (coronary artery disease)bvanxexYarqddaqiwqgxfhejcjjmj1rk degree AV blockchronic BradycardiachronicChronic diastolic (congestive) heart failurechronicEssential hypertensionchronicPacemakerchronicHospital discharge follow-upnoneactive Centrilobular emphysemaacuteHistory of tobacco abuseacuteLong term (current) use of inhaled steroidsacuteObstructive sleep apneaacuteSolitary pulmonary nodule acute [facility] Work Phone: Evaluation note* Diagnosis Onset Date Resolution Status CAD (coronary artery disease) chronicDyspnea on exertionnoneactiveBradycardianoneactiveMuscle crampnoneactive Upper back kavmubdxvkhjnv1ay degree AV blocknoneactiveChest painnoneactive Rqgjkpeicgjgtfvrhbzkxpah7ow degree AV blockchronicCAD (coronary artery disease) hnqotiySaxewvhnoxhunmbfdeaksu1fo degree AV blockchronicChronic diastolic (congestive) heart failurechronicEssential hypertensionchronicHospital discharge follow-upnoneactiveCentrilobular emphysemaacuteHistory of tobacco abuseacute assisted (current) use of inhaled steroidsacuteObstructive sleep apneaacute Solitary pulmonary noduleacuteChronic diastolic (congestive) heart failure chronicEssential hypertensionchronicMild pulmonary hypertensionchronic Hypomagnesemianoneactive [facility] Work Phone: Evaluation note* Diagnosis Onset Date Resolution Status Centrilobular emphysema acuteHistory of tobacco abuseacuteLong term (current) use of inhaled steroids acuteObstructive sleep apneaacuteSolitary pulmonary noduleacuteChronic diastolic (congestive) heart failurechronicEssential hypertensionchronicMild pulmonary hypertensionchronicHypomagnesemianoneactiveIrritable bowel syndrome with diarrheaacute [facility] Work Phone: Evaluation note* Diagnosis Primary hypertension- Primary Unspecified essential hypertension Pacemaker reprogramming/check Fitting and adjustment of cardiac pacemaker documented in this encounter [facility]* Diagnosis Onset Date Resolution Status Abdominal pain acuteBile acid malabsorption syndromeacuteIrritable bowel syndrome with diarrhea acuteChronic diastolic (congestive) heart failurechronicShortness of breath noneactive [facility] Work Phone: Evaluation note* Diagnosis Onset Date Resolution Status Abdominal pain acuteBile acid malabsorption syndromeacuteIrritable bowel syndrome with diarrhea acuteChronic diastolic (congestive) heart failurechronicShortness of breath noneactiveAbdominal painacuteGERD (gastroesophageal reflux disease)noneactiveIBS (irritable bowel syndrome)noneactive [facility] Work Phone: Evaluation note* Diagnosis Traumatic syrinx (CMS/HCC)- Primary Muscle spasm Spasm of muscle Cervical radiculopathy Brachial neuritis or radiculitis nos [facility] Diagnosis Primary hypertension- Primary Unspecified essential [...] of cardiac pacemaker documented in this encounter [facility]* Diagnosis Acute pain of left knee documented in this encounter [facility]Evaluation [facility]* Diagnosis Muscle spasm- Primary Spasm of muscle [facility] Diagnosis Sensorineural hearing loss (SNHL) of both ears- Primary [facility] Diagnosis UTI symptoms- Primary Renal angiomyolipoma Benign neoplasm of kidney, except pelvis Urinary tract infection without hematuria, site unspecified [facility] Diagnosis Impingement syndrome of left shoulder- Primary Pain and swelling of left shoulder [facility] Diagnosis Acute pain of left knee- Primary Primary osteoarthritis of left knee Instability of left knee joint Effusion of left knee [facility] Diagnosis Pacemaker- Primary Cardiac pacemaker in situ AF (paroxysmal atrial fibrillation) (HCC) Atrial fibrillation [facility] Diagnosis Pacemaker reprogramming/check Fitting and adjustment of cardiac pacemaker documented [facility] Diagnosis Cervical radiculopathy Brachial neuritis or radiculitis nos [facility] Diagnosis Cervical radiculopathy- Primary Brachial neuritis or radiculitis nos Syrinx, 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 [facility] Diagnosis Primary osteoarthritis of left knee- Primary Acute pain of left knee Pacemaker Cardiac pacemaker in situ [facility] Diagnosis Atrial fibrillation, unspecified type (HCC)- Primary documented in this [facility] Diagnosis Atrial fibrillation, unspecified type (HCC)- Primary [facility]* Diagnosis Urinary tract infection without hematuria, site unspecified- Primary Renal angiomyolipoma Benign neoplasm of kidney, except pelvis Hematuria, unspecified type- Primary Urinary tract infection without hematuria, site unspecified Renal angiomyolipoma Benign neoplasm of kidney, except pelvis Urinary tract infection without hematuria, site unspecified- Primary Renal angiomyolipoma Benign neoplasm of kidney, except pelvis Urinary urgency Urgency of urination Urinary tract infection without hematuria, site unspecified- Primary Renal angiomyolipoma Benign neoplasm of kidney, except pelvis Urinary urgency Urgency of urination Urinary tract infection without hematuria, site unspecified- Primary Renal angiomyolipoma Benign neoplasm of kidney, except pelvis Urinary urgency Urgency of urination Urinary urgency- Primary Urgency of urination Urinary tract infection without hematuria, site unspecified Urinary urgency- Primary Urgency of urination Renal angiomyolipoma Benign neoplasm of kidney, except pelvis Urinary tract infection without hematuria, site unspecified Renal angiomyolipoma- Primary Benign neoplasm of kidney, except pelvis [facility] N[facility] - [facility]Non[facility] [employer] Other History general Narrative - Reported* Type Description Date Medical History COPD Medical HistoryHTNMedical HistoryGERDMedical HistoryCADMedical Historytachcardia Medical Historyobstructive sleep apneaMedical HistoryMultiple drug allergies Medical HistoryIBSMedical HistorypolypharmacyMedical Historydry eye syndrome Medical HistoryEsophageal dysmotilitiesMedical HistoryosteoporosisMedical HistoryscoliosisMedical HistoryOSASurgical [id number] Historycardiac [id number] Historybowel resection for volvulous - Dr. Cowart HistoryEGDSurgical Historyheria Repair, abdominal B3Nbchorup HistoryERCP with stent following cholecystectomySurgical Historyfoot [id number] Hospitalization HistoryhospitalizationsHospitalization Historypneumonia twice in same [id number] HistoryUrgent Care [facility] back pain04/2020 [facility] [employer] Other History general Narrative - ReportedNonortheast [facility] [employer] Other [email or web address] general Narrative - Reported* Type Description Date Medical History COPD Medical HistoryHTNMedical HistoryGERDMedical HistoryCADMedical Historytachcardia Medical Historyobstructive sleep apneaMedical HistoryMultiple drug allergies Medical HistoryIBSMedical HistorypolypharmacyMedical Historydry eye syndrome Medical HistoryEsophageal dysmotilitiesMedical HistoryosteoporosisMedical HistoryscoliosisMedical HistoryOSASurgical Rosqaedgwbyhtjknpqsgzy9782Npztraqy Historycardiac [id number] Historybowel resection for volvulous - Dr. 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 Gonzalezurgical HistoryEGDSurgical Historyheria Repair, abdominal L2Txakghey HistoryERCP with stent following cholecystectomy Surgical Historyfoot orpdnce5320Lwlwibxn HistoryVentral hernia [facility]03/24/2022urgical Dnonjhzhpsybicc48/2022Surgical Historylaser therapy Hospitalization HistoryhospitalizationsHospitalization Historypneumonia twice in same [id number] HistoryUrgent Care Yvan back pain04/2020 Hospitalization HistoryTBH ER fx right foot09/2022 [employer] Other Hisftpz general Narrative - Reported* Type Description Date Medical History COPD Medical HistoryHTNMedical HistoryGERDMedical HistoryCADMedical Historytachcardia Medical Historyobstructive sleep apneaMedical HistoryMultiple drug allergies Medical HistoryIBSMedical HistorypolypharmacyMedical Historydry eye syndrome Medical HistoryEsophageal dysmotilitiesMedical HistoryosteoporosisMedical HistoryscoliosisMedical HistoryOSAMedical Historyfx rt footSurgical History xzrqevsnpynlhov6869Zjythrit Historycardiac qsrn6424Rmtkzodm Historybowel resection for volvulous - Dr. Gonzalezurgical HistoryEGDSurgical Historyheria Repair, abdominal M9Cqvnmrmk HistoryERCP with stent following cholecystectomy Surgical Historyfoot qztzgfj3439Exsfdjfs HistoryVentral hernia [facility]03/24/2022urgical Mmgnoiebxemojry12/2022Surgical Historylaser therapy Surgical HistoryBil. Carotid pwrjcih48/2023Hospitalization History hospitalizationsHospitalization Historypneumonia twice in same Hospitalization HistoryUrgent Care Yvan back pain04/2020Hospitalization History [facility] ER fx right foot09/2022 [employer] Other InstructionsNot on filedocumented in this encounter [facility] SystemInstructionsNot on filedocumented in this encounter [facility] (narrative)* Outpatient Procedure (Routine) - AuthorizedSpecialtyDiagnoses / ProceduresReferred By Contact Referred To [facility] Diagnoses Primary hypertension Procedures ECG COMPLETE ECG ROUTINE ECG W/LEAST 12 LDS W/I&R Audi Tapia MD [address] [place] [address] [facility] [place] [address] Referral IDStatusSuasonart DateExpiration DateVisits RequestedVisits [id number] Auto-Generated Referral / [facility] for referral (narrative)* Outpatient Procedure (Routine) - AuthorizedSpecialtyDiagnoses / ProceduresReferred By ContactReferred To [facility] Diagnoses Primary hypertension Procedures ECG COMPLETE ECG ROUTINE ECG W/LEAST 12 LDS W/I&R Audi Tapia MD [address] [facility] [place] [address] [facility] [address] [address] Referral IDStatusReasonStart DateExpiration DateVisits RequestedVisits [id number] Auto-Generated Referral [facility] for referral (narrative)* Outpatient Procedure (Routine) - AuthorizedSpecialtyDiagnoses / ProceduresReferred By ContactReferred To [facility] Diagnoses Primary hypertension High degree atrioventricular block Mild coronary artery disease Left bundle branch block (LBBB) on electrocardiogram Symptomatic bradycardia Chronic obstructive pulmonary disease, unspecified COPD type (HCC) KATELYN (obstructive sleep apnea) Chronic diastolic congestive heart failure (HCC) Procedures ECG COMPLETE ECG ROUTINE ECG W/LEAST 12 LDS W/I&R Garland Lockett MD [address] [place] [address] [facility] [address] [place] [address] Referral IDStatusReasonStart DateExpiration DateVisits RequestedVisits [id number] Auto-Generated Referral [facility] for referral (narrative)No reason for referral information availableMary [facility] Work Phone: Reason for visit Narrativediscuss referral for [place] managementAr[place] [employer] Other Reason for visit Narrative* Outpatient Procedure (Routine) - ClosedSpecialtyDiagnoses / ProceduresReferred By ContactReferred To [facility] Diagnoses Pacemaker reprogramming/check Procedures CARDIAC IMPLANTABLE DEVICE CHECK Cardiology [address] [id number] Phone: tel: [facility] [address] [place] [address] Referral IDStatusReasonStart DateExpiration DateVisits RequestedVisits [id number] Auto-Generated Referral [facility] Summary Purpose Family History No Family History Records Found Relationship Condition Age at Onset Recorded Date/T vipul Not Specified No pertinent family history Unknown Relationship Condition Age at Onset Recorded Date/T vipul Not Specified No pertinent family history Unknown brotherFamily history of other conditionUnknownfatherHeart diseaseUnknown DeceasedUnknownNot SpecifiedMalignant neoplasmUnknownHypertensionUnknownsister Malignant neoplasmUnknown Relationship Condition Age at Onset Recorded Date/T vipul Not Specified No pertinent family history Unknown brotherFamily history of other conditionUnknownfatherHeart diseaseUnknown DeceasedUnknownmotherMalignant neoplasmUnknownHypertensionUnknownsisterMalignant neoplasmUnknown Relationship Condition Age at Onset Recorded Date/T vipul Not Specified No pertinent family history Unknown brotherMalignant neoplasmUnknownfatherHeart diseaseUnknownDeceasedUnknownmother Malignant neoplasmUnknownHypertensionUnknown Advance Directives No Advanced Directives Records Found Advance Directive Response Recorded Date/ Time Advance Directives No March 22, 2018 3:02pm Advance Directive Response Recorded Date/ Time Advance Directives No March 22, 2018 2:02pm Date ActivatedDate InactivatedComments11/03/2023 2:06 PM11/05/2023 6:38 PMQuestion AnswerCommentsFull Code Order Discussed With:* Patient Date ActivatedDate InactivatedComments11/03/2023 2:06 PM11/05/2023 6:38 PMQuestion AnswerCommentsFull Code Order Discussed With:* Patient Advance Directive Response Recorded Date/ Time Advance Directives Yes January 09 1:25pm Chief Complaint and Reason for Visit Chief Complaint R07.81 R06.09 Chief Complaint R07.81 R06.09 r93.89 Chief Complaint m13.0 Chief Complaint Screening R09.89 h11.31 Chief Complaint Amb Documentation swelling in the feet and anklesReason for VisitCAD (coronary artery disease) Bradycardia Muscle cramp Chief Complaint Amb Documentation swelling in the feet and ankles r06.00 r25.2 i25.10 i27.20Reason for VisitCAD (coronary artery disease) Dyspnea on exertion Bradycardia Muscle cramp Chief Complaint Amb Documentation swelling in the feet and ankles r06.00 r25.2 i25.10 i27.20 chest painsReason for VisitCAD (coronary artery disease) Dyspnea on exertion Bradycardia Muscle cramp Upper back pain 2nd degree AV block Chest pain Hypomagnesemia Chief Complaint Amb Documentation swelling in the feet and ankles r06.00 r25.2 i25.[address] sent over, heart issuesReason for VisitCAD (coronary artery disease) Dyspnea on exertion Bradycardia Muscle cramp Upper back pain 2nd degree AV block Chest pain Hypomagnesemia Chest pain Chief Complaint Amb Documentation swelling in the feet and ankles r06.00 r25.2 i25.[address] sent over, heart issues Dr sent over, heart issues Dr sent over, heart issues 1 month follow upReason for VisitCAD (coronary artery disease) Dyspnea on exertion Bradycardia [...] up Amb Documentation 6 mo f/u COPD,KATELYN,ABN CXRReason for VisitCAD (coronary artery disease) Dyspnea on exertion Bradycardia Muscle cramp Upper back pain 2nd degree AV block Chest pain Hypomagnesemia 2nd degree AV block Bradycardia CAD (coronary artery disease) Hypomagnesemia 2nd degree AV block Bradycardia Chronic diastolic (congestive) heart failure Essential hypertension Pacemaker Hospital discharge follow-up Centrilobular emphysema History of tobacco abuse assisted (current) use of inhaled steroids Obstructive sleep apnea Solitary pulmonary nodule Chief Complaint swelling in the feet and ankles r06.00 r25.2 i25.[address] sent over, heart issues Dr sent over, heart issues Dr sent over, heart issues 1 month follow up Amb Documentation 6 mo f/u COPD,KATELYN,ABN CXR 6 MONTH FOLLOW-UPReason for VisitCAD (coronary artery disease) Dyspnea on exertion Bradycardia Muscle cramp Upper back pain 2nd degree AV block Chest pain Hypomagnesemia 2nd degree AV block CAD (coronary artery disease) Hypomagnesemia 2nd degree AV block Chronic diastolic (congestive) heart failure Essential hypertension Hospital discharge follow-up Centrilobular emphysema History of tobacco abuse assisted (current) use of inhaled steroids Obstructive sleep apnea Solitary pulmonary nodule Chronic diastolic (congestive) heart failure Essential hypertension Mild pulmonary hypertension Hypomagnesemia Chief Complaint Amb Documentation 6 mo f/u COPD,KATELYN,ABN CXR 6 MONTH FOLLOW-UP Amb Documentation Amb Documentation ! 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 year follow up not feeling well I50.32 R06.02Reason for VisitAbdominal pain Bile acid malabsorption syndrome Irritable bowel syndrome with diarrhea Chronic diastolic (congestive) heart failure Shortness of breath Chief Complaint Amb Documentation ! year follow up not feeling well I50.32 R06.02 1 mo f/u- Ibs-dReason for VisitAbdominal pain Bile acid malabsorption syndrome Irritable bowel syndrome with diarrhea Chronic diastolic (congestive) heart failure Shortness of breath Abdominal pain GERD (gastroesophageal reflux disease) IBS (irritable bowel syndrome) Chief Complaint ! year follow up not feeling well I50.32 R06.02 1 mo f/u- Ibs-d Z12.31Reason for VisitAbdominal pain Bile acid malabsorption syndrome Irritable bowel syndrome with diarrhea Chronic diastolic (congestive) heart failure Shortness of breath Abdominal pain GERD (gastroesophageal reflux disease) IBS (irritable bowel syndrome) Chief Complaint Admit Date sick, runny nose, cough August 07 024 12:54pm CHF, Atrioventricular block October 12 025 1:23pm I50.32 I25.10 October 12, 2024 1:32 pm Reason for Visit Admit Date 2nd degree AV block August 07, 2024 12:54pm CAD (coronary artery disease) July 112023 12:54pm Chronic diastolic (congestive) heart pablo lure August 07, 2024 12:54pm URI (upper respiratory infection) Dece er 2023 12:54pm Obstructive sleep apnea October 12, 2024 1:23pm 2nd degree AV block October 12, 2024 1:23 pm Atrial fibrillation October 12, 2024 1:23 pm Chronic diastolic (congestive) heart pablo lure October 12, 2024 1:23pm Essential hypertension October 12, 2024 1 :23pm Reason for Visit Admit Date 2nd degree AV block August 07, 2024 12:54pm CAD (coronary artery disease) July 112023 12:54pm Chronic diastolic (congestive) heart pablo lure August 07, 2024 12:54pm URI (upper respiratory infection) [facility] er 2023 12:54pm Chief Complaint Admit Date R10.9 K58.0 January 12, 2025 1:18p m Chief Complaint Admit Date R10.9 K58.0 January 12, 2025 1:18p m 6 month follow up January 22, 2025 1:07 pm Z95.0 I44.1 January 31, 2025 12:5 6pm Reason for Visit Admit Date 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 1:07pm Centrilobular emphysema January 22, 2025 1:07pm History of tobacco abuse January 22, 2025 1:07pm Irritable bowel syndrome with diarrhea [facility] 2024 1:07pm Obstructive sleep apnea January 22, 2025 1:07pm 2nd degree AV block January 22, 2025 1:07 pm Atrial fibrillation January 22, 2025 1:07 pm CAD (coronary artery disease) January 22, 2025 1:07pm Chronic diastolic (congestive) heart pablo lure January 22, 2025 1:07pm Essential hypertension January 22, 2025 1 :07pm Chief Complaint Admit Date R10.9 K58.0 January 12, 2025 1:18p m 6 month follow up January 22, 2025 1:07 pm Z95.0 I44.1 January 31, 2025 12:5 6pm M25.562 M25.362 March 14, 2025 7:3 0am Chief Complaint Admit Date R10.9 K58.0 January 12, 2025 1:18p m 6 month follow up January 22, 2025 1:07 pm Z95.0 I44.1 January 31, 2025 12:5 6pm M25.562 M25.362 March 14, 2025 7:3 0am 6 month f/u April 10, 2025 1:33pm Reason for Visit Admit Date 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 1:07pm Centrilobular emphysema January 22, 2025 1:07pm History of tobacco abuse January 22, 2025 1:07pm Irritable bowel syndrome with diarrhea [facility] 2024 1:07pm Obstructive sleep apnea January 22, 2025 1:07pm 2nd degree AV block January 22, 2025 1:07 pm Atrial fibrillation January 22, 2025 1:07 pm CAD (coronary artery disease) January 22, 2025 1:07pm Chronic diastolic (congestive) heart pablo lure January 22, 2025 1:07pm Essential hypertension January 22, 2025 1 :07pm Obstructive sleep apnea April 10 2 025 1:33pm 2nd degree AV block April 10, 2025 1:33pm Atrial fibrillation April 10, 2025 1:33pm Chronic diastolic (congestive) heart pablo lure April 10, 2025 1:33pm Essential hypertension April 10 1:33pm Chief Complaint Admit Date 6 month follow up January 22, 2025 1:07 pm Z95.0 I44.1 January 31, 2025 12:5 6pm M25.562 M25.362 March 14, 2025 7:3 0am 6 month f/u April 10, 2025 1:33pm I50.32 April 10, 2025 1:47pm heartburn April 13, 2025 1:16pm Reason for Visit Admit Date 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 1:07pm Centrilobular emphysema January 22, 2025 1:07pm History of tobacco abuse January 22, 2025 1:07pm Irritable bowel syndrome with diarrhea [facility] 2024 1:07pm Obstructive sleep apnea January 22, 2025 1:07pm 2nd degree AV block January 22, 2025 1:07 pm Atrial fibrillation January 22, 2025 1:07 pm CAD (coronary artery disease) January 22, 2025 1:07pm Chronic diastolic (congestive) heart pablo lure January 22, 2025 1:07pm Essential hypertension January 22, 2025 1 :07pm Obstructive sleep apnea April 10 2 025 1:33pm 2nd degree AV block April 10, 2025 1:33pm Atrial fibrillation April 10, 2025 1:33pm Chronic diastolic (congestive) heart pablo lure April 10, 2025 1:33pm Essential hypertension April 10 1:33pm GERD (gastroesophageal reflux disease) S 2024 1:16pm Irritable bowel syndrome with diarrhea S [facility]2024 1:16pm Chief Complaint Admit Date M25.562 M25.362 March 14, 2025 7:3 0am 6 month f/u April 10, 2025 1:33pm I50.32 April 10, 2025 1:47pm heartburn April 13, 2025 1:16pm Z95.0 I44.1 May 02, 2025 2:21pm Reason for Visit Admit Date Obstructive sleep apnea April 10 025 1:33pm 2nd degree AV block April 10, 2025 1:33pm Atrial fibrillation April 10, 2025 1:33pm Chronic diastolic (congestive) heart pablo lure April 10, 2025 1:33pm Essential hypertension April 10 1:33pm GERD (gastroesophageal reflux disease) S 2024 1:16pm Irritable bowel syndrome with diarrhea S 2024 1:16pm Chief Complaint Admit Date M25.562 M25.362 March 14, 2025 7:3 0am 6 month f/u April 10, 2025 1:33pm I50.32 April 10, 2025 1:47pm heartburn April 13, 2025 1:16pm Z95.0 I44.1 May 02, 2025 2:21pm face to face for chair lift May 09, 2025 10:47am Reason for Visit Admit Date Obstructive sleep apnea April 10 025 1:33pm 2nd degree AV block April 10, 2025 1:33pm Atrial fibrillation April 10, 2025 1:33pm Chronic diastolic (congestive) heart pablo lure April 10, 2025 1:33pm Essential hypertension April 10 1:33pm GERD (gastroesophageal reflux disease) S 2024 1:16pm Irritable bowel syndrome with diarrhea S [facility]20[facility] 1:16pm Polyarthritis May 09, 2025 10 :47am Osteoarthritis of left knee May 09, 2025 10:47am Impaired mobility May 09, 2025 10 :47am Chief Complaint Admit Date M25.562 M25.362 March 14, 2025 7:3 0am 6 month f/u April 10, 2025 1:33pm I50.32 April 10, 2025 1:47pm heartburn April 13, 2025 1:16pm Z95.0 I44.1 May 02, 2025 2:21pm face to face for chair lift May 09, 2025 10:47am 6wk GERD/Dyspepsia May 28, 2025 2 :09pm Reason for Visit Admit Date Obstructive sleep apnea April 10 025 1:33pm 2nd degree AV block April 10, 2025 1:33pm Atrial fibrillation April 10, 2025 1:33pm Chronic diastolic (congestive) heart pablo lure April 10, 2025 1:33pm Essential hypertension April 10 1:33pm GERD (gastroesophageal reflux disease) S 2024 1:16pm Irritable bowel syndrome with diarrhea 2024 1:16pm Polyarthritis May 09, 2025 10 :47am Osteoarthritis of left knee May 09, 2025 10:47am Impaired mobility May 09, 2025 10 :47am GERD (gastroesophageal reflux disease) O ctober 2024 2:09pm Chief Complaint Admit Date M25.562 M25.362 March 14, 2025 7:3 0am 6 month f/u April 10, 2025 1:33pm I50.32 April 10, 2025 1:47pm heartburn April 13, 2025 1:16pm Z95.0 I44.1 May 02, 2025 2:21pm face to face for chair lift May 09, 2025 10:47am 6wk GERD/Dyspepsia May 28, 2025 2 :09pm D64.9 May 28, 2025 3 :54pm Reason for Visit Admit Date Obstructive sleep apnea April 10 025 1:33pm 2nd degree AV block April 10, 2025 1:33pm Atrial fibrillation April 10, 2025 1:33pm Chronic diastolic (congestive) heart pablo lure April 10, 2025 1:33pm Essential hypertension April 10 1:33pm GERD (gastroesophageal reflux disease) S 2024 1:16pm Irritable bowel syndrome with diarrhea S [facility] 2024 1:16pm Polyarthritis May 09, 2025 10 :47am Osteoarthritis of left knee May 09, 2025 10:47am Impaired mobility May 09, 2025 10 :47am Abdominal pain May 28, 2025 2 :09pm Anemia May 28, 2025 2 :09pm GERD (gastroesophageal reflux disease) O ctober 2024 2:09pm Irritable bowel syndrome with diarrhea O ctober 2024 2:09pm Chief Complaint Admit Date M25.562 M25.362 March 14, 2025 7:3 0am 6 month f/u April 10, 2025 1:33pm I50.32 April 10, 2025 1:47pm heartburn April 13, 2025 1:16pm Z95.0 I44.1 May 02, 2025 2:21pm face to face for chair lift May 09, 2025 10:47am 6wk GERD/Dyspepsia May 28, 2025 2 :09pm D64.9 May 28, 2025 3 :54pm D64.9 May 30, 2025 1 :29pm Chief Complaint Admit Date M25.562 M25.362 March 14, 2025 7:3 0am 6 month f/u April 10, 2025 1:33pm I50.32 April 10, 2025 1:47pm heartburn April 13, 2025 1:16pm Z95.0 I44.1 May 02, 2025 2:21pm face to face for chair lift May 09, 2025 10:47am 6wk GERD/Dyspepsia May 28, 2025 2 :09pm D64.9 May 28, 2025 3 :54pm D64.9 May 30, 2025 1 :29pm I50.32 I10 I48.91 June 08, 2025 1 :31pm Reason for Referral Reason Wants to see Dr. 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) Referral Organization [facility] Family Saranya Moses Referring Provider First Name Lisa Referring Provider Last Name Gladys Referring Provider Specialty Family Prac krishan Referred Organization [facility] Referred Address ,[place], [place],[address] Referred Provider Specialty Neurology Referral Priority Routine Additional Source Comments INFORMATION SOURCE (unrecogn ized section and content) DATE CREATED AUTHOR 08/22/2019 [facility] DATE CREATED AUTHOR AUTHOR'S ORGANIZ ATION 10/05/2022 [facility] DATE CREATED AUTHOR AUTHOR'S ORGANIZ ATION 09/06/2023 [facility] DATE CREATED AUTHOR AUTHOR'S ORGANIZ ATION 04/06/2025 [facility] DATE CREATED AUTHOR AUTHOR'S ORGANIZ ATION 04/16/2025 [facility] DATE CREATED AUTHOR AUTHOR'S ORGANIZ ATION 04/25/2025 [facility] DATE CREATED AUTHOR AUTHOR'S ORGANIZ ATION 05/01/2025 [facility] DATE CREATED AUTHOR AUTHOR'S ORGANIZ ATION 06/10/2025 [facility] DATE CREATED AUTHOR AUTHOR'S ORGANIZ ATION 06/20/2025 [facility] REASON FOR VISIT (unrecogniz ed section and content) ReasonCommentsPatient QuestionReasonCommentsMed Change RequestReasonOnset Date CommentsTransition Of Care11/08/2023TCM Pharmacy-Hospital discharge 11/05/23 ReasonCommentsFollow Up Phone CallRC follow up call all clear.ReasonComments Patient QuestionPatient had device implanted last Thrusday and she states having swelling. Wants to know, if it is okay to use ice pack. Please call her at [phone].ReasonCommentsPost Dc Program Call - Needs AttnDriving limitation questionReasonCommentsCourtesy callDevice surveyReasonCommentsAppointmentReason CommentsPatient UpdateReasonCommentsPainReasonCommentsFollow-upHaving trouble with kidneys, wants to discuss USReasonCommentsPainReasonCommentsPermanent PacemakerAtrial FibrillationReasonCommentsRefill RequestReasonCommentsRemote Pacemaker Follow UpReasonOnset DateCommentsDr Schmitt's office dllvhz2704/17/2025 return call04/17/2025ReasonCommentsMedication QuestionReasonCommentsFollow-up Source Comments (unrecognize d section and content) In the event this informatio n is protected by the Federal Confidentiality of Alcohol and Drug Abuse Patient Records regulations: The Federal rules restrict any use of the information to criminally investigate or prosecute any alcohol or drug abuse patient.[facility], IncIn the event this information is protected by the Federal Confidentiality of Alcohol and Drug Abuse Patient Records regulations: The Federal rules restrict any use of the information to criminally investigate or prosecute any alcohol or drug abuse patient.[facility], IncIn the event this information is protected by the Federal Confidentiality of Alcohol and Drug Abuse Patient Records regulations: The Federal rules restrict any use of the information to criminally investigate or prosecute any alcohol or drug abuse patient.[facility], IncIn the event this information is protected by the Federal Confidentiality of Alcohol and Drug Abuse Patient Records regulations: The Federal rules restrict any use of the information to criminally investigate or prosecute any alcohol or drug abuse patient.[facility], IncIn the event this information is protected by the Federal Confidentiality of Alcohol and Drug Abuse Patient Records regulations: The Federal rules restrict any use of the information to criminally investigate or prosecute any alcohol or drug abuse patient.[facility], IncIn the event this information is protected by the Federal Confidentiality of Alcohol and Drug Abuse Patient Records regulations: The Federal rules restrict any use of the information to criminally investigate or prosecute any alcohol or drug abuse patient.[facility], IncIn the event this information is protected by the Federal Confidentiality of Alcohol and Drug Abuse Patient Records regulations: The Federal rules restrict any use of the information to criminally investigate or prosecute any alcohol or drug abuse patient.[facility], IncIn the event this information is protected by the Federal Confidentiality of Alcohol and Drug Abuse Patient Records regulations: The Federal rules restrict any use of the information to criminally investigate or prosecute any alcohol or drug abuse patient.[facility], IncIn the event this information is protected by the Federal Confidentiality of Alcohol and Drug Abuse Patient Records regulations: The Federal rules restrict any use of the information to criminally investigate or prosecute any alcohol or drug abuse patient.[facility] the event this information is protected by the Federal Confidentiality of Alcohol and Drug Abuse Patient Records regulations: The Federal rules restrict any use of the information to criminally investigate or prosecute any alcohol or drug abuse patient.[facility], IncIn the event this information is protected by the Federal Confidentiality of Alcohol and Drug Abuse Patient Records regulations: The Federal rules restrict any use of the information to criminally investigate or prosecute any alcohol or drug abuse patient.[facility], IncIn the event this information is protected by the Federal Confidentiality of Alcohol and Drug Abuse Patient Records regulations: The Federal rules restrict any use of the information to criminally investigate or prosecute any alcohol or drug abuse patient.[facility], IncIn the event this information is protected by the Federal Confidentiality of Alcohol and Drug Abuse Patient Records regulations: The Federal rules restrict any use of the information to criminally investigate or prosecute any alcohol or drug abuse patient.[facility], IncIn the event this information is protected by the Federal Confidentiality of Alcohol and Drug Abuse Patient Records regulations: The Federal rules restrict any use of the information to criminally investigate or prosecute any alcohol or drug abuse patient.[facility], IncIn the event this information is protected by the Federal Confidentiality of Alcohol and Drug Abuse Patient Records regulations: The Federal rules restrict any use of the information to criminally investigate or prosecute any alcohol or drug abuse patient.[facility], IncIn the event this information is protected by the Federal Confidentiality of Alcohol and Drug Abuse Patient Records regulations: The Federal rules restrict any use of the information to criminally investigate or prosecute any alcohol or drug abuse patient.[facility], IncIn the event this information is protected by the Federal Confidentiality of Alcohol and Drug Abuse Patient Records regulations: The Federal rules restrict any use of the information to criminally investigate or prosecute any alcohol or drug abuse patient.[facility], IncIn the event this information is protected by the Federal Confidentiality of Alcohol and Drug Abuse Patient Records regulations: The Federal rules restrict any use of the information to criminally investigate or prosecute any alcohol or drug abuse patient.[facility], IncIn the event this information is protected by the Federal Confidentiality of Alcohol and Drug Abuse Patient Records regulations: The Federal rules restrict any use of the information to criminally investigate or prosecute any alcohol or drug abuse patient.[facility], IncIn the event this information is protected by the Federal Confidentiality of Alcohol and Drug Abuse Patient Records regulations: The Federal rules restrict any use of the information to criminally investigate or prosecute any alcohol or drug abuse patient.[facility], IncIn the event this information is protected by the Federal Confidentiality of Alcohol and Drug Abuse Patient Records regulations: The Federal rules restrict any use of the information to criminally investigate or prosecute any alcohol or drug abuse patient.[facility], IncIn the event this information is protected by the Federal Confidentiality of Alcohol and Drug Abuse Patient Records regulations: The Federal rules restrict any use of the information to criminally investigate or prosecute any alcohol or drug abuse patient.[facility], IncIn the event this information is protected by the Federal Confidentiality of Alcohol and Drug Abuse Patient Records regulations: The Federal rules restrict any use of the information to criminally investigate or prosecute any alcohol or drug abuse patient.[facility], IncIn the event this information is protected by the Federal Confidentiality of Alcohol and Drug Abuse Patient Records regulations: The Federal rules restrict any use of the information to criminally investigate or prosecute any alcohol or drug abuse patient.[facility] Care Teams (unrecognized sec tion and content) Team Status: Active Member Role Status Dates Lisa Graham DO Primary Care Provider Active Team Status: Inactive Member Role Status Dates Lisa Graham , Primary Care Provider Active Start: March 28, 2024 End: March 28Kenneth Silva ProviderActiveStart: March 28, 2024 End: March 28, 2024 Team Status: Inactive Member Role Status Dates Lisa Graham DO Primary Care Provider Active Start: April 24, 2024 End: April 24Kenneth Mancuso ProviderActive Start: April 24, 2024 End: April 24, 2024 Team Status: Inactive Member Role Status Dates Lisa Graham DO Primary Care Provider Active Start: May 01, 2024 End: May 01Kenneth Silva ProviderActiveStart: May 01, 2024 End: May 01, 2024 Team Status: Inactive Member Role Status Dates Lisa Graham DO Primary Care Provider Active Start: May 22, 2024 End: May 22Kenneth Mancuso ProviderActiveStart: May 22, 2024 End: May 22, 2024 Team Status: Active Member Role Status Dates Lisa Graham DO Primary Care Provider Active Start: January 05, 2024 Lavonne Arce ProviderActiveStart: January 05, 2024 Team Status: Inactive Member Role Status Dates Lisa Graham DO Primary Care Provider Active Start: January 10, 2024 End: January 10, 2024Joce Hernandez DOAttana ProviderActiveStart: January 10, 2024 End: January 09MEActiveStart: January 10, 2024 End: January 10, 2024 Team Status: Inactive Member Role Status Dates Lisa Graham DO Primary Care Provi bang, Attending Provider Active Start: January 13, 2024 End: January 13, 2024 Team Status: Active Member Role Status Dates Lisa N Gladys , DO Primary Care Provider Active Start: January 19, 2024 Ida AnishJEFF andrewsAAttenfredo ProviderActiveStart: January 19, 2024 Team Status: Active Member Role Status Dates Lisa Graham , DO Primary Care Provider Active Start: February 04, 2024 Ida AnishJEFF andrewsAAttenfredo ProviderActiveStart: February 04, 2024 Team Status: Inactive Member [...] Start: November 01, 2023 End: November 03, 2023Kaia Rossi ProviderActiveStart: November 01, 2023 End: November 03, 2023Aliya Gee ProviderActiveStart: November 01, 2023 End: November 03, 2023StKarie Alfonso ProviderActiveStart: November 01, 2023 End: November 03, 2023Karie Victoria ProviderActiveStart: November 01, 2023 End: November 03, 2023Karie Redman ProviderActiveStart: November 01, 2023 End: November 03, 2023 Team Status: Active Member Role Status Dates Lisa Pastrana Gladys , DO Primary Care Provi bang, Admit Provider, Other Provider Active Start: November 02, 2023 End: November 03, 2023Kaia Rossi ProviderActiveStart: November 02, 2023 End: November 03, 2023Aliya Gee ProviderActiveStart: November 02, 2023 End: November 03, 2023Karie Zafar ProviderActiveStart: November 02, 2023 End: November 03, 2023Karie Victoria ProviderActiveStart: November 02, 2023 End: November 03, 2023Linda Danuta , MDAttending Provider, Other ProviderActive Start: November 02, 2023 End: November 03, 2023 Team Status: Active Member Role Status Dates Lisa Graham , DO Primary Care Provi bang, Admit Provider, Attending Provider, Other Provider Active Start: November 03, 2023 End: November 03, 2023Lambert Abraham , DOEmergency ProviderActiveStart: November 03, 2023 End: November 03, 2023Sylvia Chen RNOther ProviderActiveStart: November 03, 2023 End: November 03, 2023Stlamin Damico MDOther ProviderActiveStart: November 03, 2023 End: November 03, 2023Gececil Frausto MDOther ProviderActiveStart: November 03, 2023 End: November 03, 2023Emmanuelle Tipton MDOther ProviderActiveStart: November 03, 2023 End: November 03, 2023 Team Status: Inactive Member Role Status Dates Lisa Graham , DO Primary Care Provi bang, Attending Provider Active Start: November 29, 2023 End: November 29, 2023 Team Status: Active Member Role Status Dates Lisa Graham , DO Primary Care Provider Active Start: October 11, 2023 Karly Serna ProviderActiveStart: October 11, 2023 Team MemberRelationshipSpecialtyStart DateEnd Date Sebastien Quesada PCP - GeneralFamily Medicine09/21/13 Terrell Rodriguez Urology10/29/15 Team Status: Inactive Member Role Status Dates Lisa Graham , DO Primary Care Provider, Attending Provider Active Team Status: Inactive Member Role Status Dates Lisa Graham , DO Primary Care Provider Active Neeta Rodriguez ProviderActiveTeam MemberRelationship SpecialtyStart DateEnd Date Lisa Graham MD [address] [place] [phone] PCP - GeneralFamily Medicine12/24/22Team MemberRelationshipSpecialtyStart DateEnd Date Lisa Graham MD [address] [facility] [place] [phone] PCP - GeneralFamily Medicine12/24/22 Team Status: Active Member Role Status Dates Lisa Graham , DO Primary Care Provi bang, Attending Provider Active Start: November 01, 2023 Team Status: Active Member Role Status Dates Lisa Graham , DO Primary Care Provi bang, Admit Provider, Attending Provider Active Start: November 01, 2023 Lambert Abraham , DOEmeraj ProviderActiveStart: November 01, 2023 Team MemberRelationshipSpecialtyStart DateEnd Date Lisa Graham DO [address] [facility] [place] [address] [facility] - [facility]11/03/23 Terrell Rodriguez Urology10/29/15 Foster Gutierrez [facility] [address] [place] [address] Transitional Care PharmacistPharmacyTeam MemberRelationshipSpecialty Start DateEnd Date Lisa Graham DO [address] [place] [address] [facility] - [facility]11/03/23 Terrell Rodriguez Urology10/29/15Team MemberRelationshipSpecialtyStart DateEnd Date Lisa Graham DO [address] [place] [address] [facility] - [facility]11/03/23 Terrell Rodriguez Urology10/29/15Team MemberRelationshipSpecialtyStart DateEnd Date Lisa Graham DO [address] [place] [address] PCP - [facility] Medicine11/03/23 Terrell Rodriguez Urology10/29/15Team MemberRelationshipSpecialtyStart DateEnd Date Lisa Graham DO [address] [place] [address] PCP - [facility] Medicine11/03/23 Terrell Rodriguez Urology10/29/15Team MemberRelationshipSpecialtyStart DateEnd Date Lisa Graham DO [address] [place] [address] PCP - [facility]11/03/23 Terrell Rodriguez Urology10/29/15 Team Status: Active Member Role Status Dates Lisa Graham DO Primary Care Provider Active Start: April 24, 2024 Sebastien Duffy , OMIDNAttenfredo ProviderActiveStart: April 24, 2024 Team MemberRelationshipSpecialtyStart DateEnd Date Lisa Graham DO [address] [place] [address] PCP - [facility] Medicine11/03/23 Terrell Rodriguez Urology10/29/15Team MemberRelationshipSpecialtyStart DateEnd Date Lisa Graham MD [address] [place] [phone] PCP - GeneralFamily Medicine12/24/22Team MemberRelationshipSpecialtyStart DateEnd Date Lisa Graham MD [address] [place] [phone] PCP - GeneralFamily Medicine12/24/22Team MemberRelationshipSpecialtyStart DateEnd Date Lisa Graham DO [address] [place] [address] PCP - GeneralFamily Medicine11/03/23 Terrell Rodriguez Urology10/29/15Team MemberRelationshipSpecialtyStart DateEnd Date Lisa Graham MD [address] [place] [phone] PCP - GeneralFamily Medicine12/24/22Team MemberRelationshipSpecialtyStart DateEnd Date Lisa Graham MD [address] [place] [phone] PCP - GeneralFamily Medicine12/24/22Team MemberRelationshipSpecialtyStart DateEnd Date Lisa Graham MD [address] [place] [phone] PCP - GeneralFamily Medicine12/24/22Team MemberRelationshipSpecialtyStart DateEnd Date Lisa Graham MD [address] [facility] [place] [address] PCP - GeneralFamily Medicine12/24/22Team MemberRelationshipSpecialtyStart DateEnd Date Lisa Graham DO [address] [facility] [place] [address] PCP - GeneralFamily Medicine11/03/23 Terrell Rodriguez Urology10/29/15Team MemberRelationshipSpecialtyStart DateEnd Date Lisa Graham DO [address] [facility] [place] [address] PCP - GeneralFamily Medicine11/03/23 Terrell Rodriguez Urology10/29/15Team MemberRelationshipSpecialtyStart DateEnd Date Lisa rGaham DO [facility] [place] [address] PCP - GeneralFamily Zgjhlxnn45/21/20 Team Status: Inactive Member Role Status Dates Lisa Graham DO Primary Care Provider Active Start: August 07, 2024 End: August 07ichkeyonna Duffy APRNAttending ProviderActiveStart: August 07, 2024 End: August 07, 2024 Team Status: Inactive Member Role Status Dates Lisa Graham DO Primary Care Provider Active Start: October 12, 2024 End: October 12, 2024Emmanuelle Tipton MDAttana ProviderActiveStart: October 12, 2024 End: October 12, 2024Sebastien Duffy APRNReferring ProviderActiveStart: October 12, 2024 End: October 12, 2024 Team Status: Inactive Member Role Status Dates Lisa Graham DO Primary Care Provider Active Start: October 12, 2024 End: October 12, 2024Neeta Redman ProviderActiveStart: October 12, 2024 End: October 12, 2024 Team Status: Active Member Role Status Dates Lisa Graham DO Primary Care Provider Active Start: October 12, 2024 Neeta Redman ProviderActiveStart: October 12, 2024 Team MemberRelationshipSpecialtyStart DateEnd Date Lisa Graham MD [address] [facility] [place] [address] PCP - Generalmily Medicine12/24/22Team MemberRelationshipSpecialtyStart DateEnd Date Lisa Graham MD [address] [facility] [place] [address] PCP - Generalmi Medicine12/24/22Team MemberRelationshipSpecialtyStart DateEnd Date Lisa Graham MD PCP - Generalmi Medicine12/24/22Team MemberRelationshipSpecialtyStart DateEnd Date Lisa Graham MD PCP - Generalmi Medicine12/24/22Team MemberRelationshipSpecialtyStart DateEnd Date Lisa Graham DO [address] [place] [address] PCP - GeneralFamily Medicine11/03/23 Terrell Rodriguez Urology10/29/15Team MemberRelationshipSpecialtyStart DateEnd Date Lisa Graham DO [address] [place] [address] PCP - [facility] Medicine11/03/23 Terrell Rodriguez Urology10/29/15Team MemberRelationshipSpecialtyStart DateEnd Date Lisa Graham DO [address] [facility] [place] [address] PCP - [facility] Medicine11/03/23 Terrell Rodriguez Urology10/29/15Team MemberRelationshipSpecialtyStart DateEnd Date Lisa Graham MD PCP - [facility]12/24/22 Team Status: Inactive Member Role Status Dates Lisa Graham DO Primary Care Provider Active Start: January 12, 2025 End: January 12, 2025Kenneth Nur ProviderActiveStart: January 12, 2025 End: January 12, 2025 Team Status: Inactive Member Role Status Dates Sebastien Duffy APRN Attending Provider Active Start: January 22, 2025 End: January 22, 2025AlJose Gerardo Care ProviderActiveStart: January 22, 2025 End: January 22, 2025 Team Status: Active Member Role Status Dates Lisa Graham DO Primary Care Provider Active Start: January 31, 2025 Emmanuelle Tipton MDOther ProviderActiveStart: January 31, 2025 Neeta Varela ProviderActiveStart: January 31, 2025 Team MemberRelationshipSpecialtyStart DateEnd Date Lisa Graham DO [address] [facility] [place] [address] PCP - [facility] Medicine11/03/23 Terrell Rodriguez Urology10/29/15 Team Status: Inactive Member Role Status Dates Lisa Graham DO Primary Care Provider Active Start: March 14, 2025 End: March 14, 2025MaLUIS Ocampo-CAtdominic ProviderActiveStart: March 14, 2025 End: March 14, 2025Team MemberRelationshipSpecialtyStart DateEnd Date Lisa Graham MD PCP - [facility]12/24/22Team MemberRelationshipSpecialtyStart DateEnd Date Lisa Graham MD [facility] - [facility]12/24/22 Team Status: Inactive Member Role Status Dates Lisa Graham DO Primary Care Provider Active Start: April 10, 2025 End: April 10, 2025Neeta Redman ProviderActiveStart: April 10, 2025 End: April 10, 2025 Team Status: Active Member Role Status Dates Lisa Graham DO Primary Care Provider Active Start: April 10, 2025 Neeta Redman ProviderActiveStart: April 10, 2025 Team Status: Inactive Member Role Status Dates Lisa Graham DO Primary Care Provider Active Start: April 13, 2025 End: April 13, 2025Kenneth Nur ProviderActiveStart: April 13, 2025 End: April 13, 2025Team MemberRelationshipSpecialtyStart DateEnd Date Lisa Graham DO [address] [facility] [address] PCP - [facility] Medicine11/03/23 Terrell Rodriguez Urology10/29/15 Emmanuelle Tipton MD [address] [place] [address]; [address] [place] [address] ReferringCardiology04/14/25Team MemberRelationshipSpecialtyStart DateEnd Date Lisa Graham DO [address] [facility] [place] [address] PCP - [facility] Medicine11/03/23 Terrell Rodriguez Urology10/29/15 Emmanuelle Tipton MD [address] [place] [address]; [address] [place] [address] ReferringCardiology04/14/25Team MemberRelationshipSpecialtyStart DateEnd Date Lisa Graham DO [address] [facility] [place] [address] PCP - [facility] Medicine11/03/23 Terrell Rodriguez Urology10/29/15 Emmanuelle Tipton MD [address] [place] [address]; [address] [place] [address] ReferringCardiology04/14/25 Team Status: Active Member Role Status Dates Lisa Graham DO Primary Care Provider Active Start: May 02, 2025 Emmanuelle Tipton MDOther ProviderActiveStart: May 02, 2025 Minesh Arciniega MDAttana ProviderActiveStart: May 02, 2025 Team Status: Inactive Member Role Status Dates Sebastien Duffy APRN Attending Provider Active Start: May 09, 2025 End: May 09, 2025MaJose Gerardo Care ProviderActiveStart: May 09, 2025 End: May 09, 2025Team MemberRelationshipSpecialtyStart DateEnd Date Lisa Graham DO [address] [place] [address] PCP - [facility] Temkslke00/21/20 Team Status: Active Member Role/Relationship Status Dates Lisa Graham , DO Primary Care Provider Active Team Status: Inactive Member Role/Relationship Status Dates Lisa Graham , DO Primary Care Provider Active Start: March 14, 2025 End: March 14, 2025Sugey Trevino ProviderActiveStart: March 14, 2025 End: March 14, 2025 Team Status: Inactive Member Role/Relationship Status Dates Lisa Graham , DO Primary Care Provider Active Start: April 10, 2025 End: April 10, 2025Emmanuelle Tipton , BRENDAttending ProviderActiveStart: April 10, 2025 End: April 10, 2025 Team Status: Inactive Member Role/Relationship Status Dates Lisa Graham , DO Primary Care Provider Active Start: April 10, 2025 End: April 10, 2025Emmanuelle Khange , MDAttending ProviderActiveStart: April 10, 2025 End: April 10, 2025 Team Status: Inactive Member Role/Relationship Status Dates Lisa Graham , DO Primary Care Provider Active Start: April 13, 2025 End: April 13, 2025Kenneth Nur ProviderActiveStart: April 13, 2025 End: April 13, 2025 Team Status: Active Member Role/Relationship Status Dates Lisa Graham DO Primary Care Provider Active Start: May 02, 2025 Karie Redman ProviderActiveStart: May 02, 2025 Minesh Arciniega MDAttending ProviderActiveStart: May 02, 2025 Team Status: Inactive Member Role/Relationship Status Dates Sebastien Duffy APRN Attending Provider Active Start: May 09, 2025 End: May 09, 2025Jose Garsia Care ProviderActiveStart: May 09, 2025 End: May 09, 2025 Team Status: Inactive Member Role/Relationship Status Dates Lisa Graham DO Primary Care Provider Active Start: May 28, 2025 End: May 28, 2025Kenneth Nur ProviderActiveStart: May 28, 2025 End: May 28, 2025 Team Status: Inactive Member Role/Relationship Status Dates Lisa Graham DO Primary Care Provider Active Start: May 28, 2025 End: May 28, 2025Nehal Nurdominic ProviderActiveStart: May 28, 2025 End: May 28, 2025 Team Status: Inactive Member Role/Relationship Status Dates Lisa Graham DO Primary Care Provider Active Start: May 30, 2025 End: May 30, 2025Marco Antonio Jernigan Raghavjimmie OMIDEdddominic ProviderActiveStart: May 30, 2025 End: May 30, 2025Team MemberRelationshipSpecialtyStart DateEnd Date Lisa [facility] Team Status: Inactive Member Role/Relationship Status Dates Lisa Graham DO Primary Care Provider Active Start: June 08, 2025 End: June 08, 2025Linda DanutaNeeta romero ProviderActiveStart: June 08, 2025 End: June 08, 2025 Goals (unrecognized section and content) Goals may [...] BE BASED ON THE PRIMARY CLINICAL RECORDS. [facility] [employer] provides no warranty or guarantee of the accuracy or completeness of information in this document.
[2025-07-17 12:51] LABS: Hematocrit 40.4 % (36.0-48.0); Hemoglobin 13.7 g/dL (12.0-16.0); Immature Granulocytes Abs Auto 0.03 10^3/uL (0.00-0.03); Immature Granulocytes Pct Auto 0.3 % (0.0-0.5); Lymphocytes Absolute Auto 1.6 10^3/uL (1.2-3.8); Mean Corpuscular HGB Conc 33.9 g/dL (29.9-35.2); Mean Corpuscular Hemoglobin 31.6 pg (26.7-34.0); Mean Corpuscular Volume 93.1 fL (81.0-99.0); Platelet Count 288 10^3/uL (150-450); Red Blood Count 4.34 10^6/uL (4.20-5.40); White Blood Count 9.7 10^3/uL (4.0-11.0)
[2025-07-17 13:21] LABS: Alanine Aminotransferase 24 U/L (14-59); Albumin Globulin Ratio 1.3; Albumin Level 4.2 g/dL (3.4-5.0); Alkaline Phosphatase 79 U/L (46-116); Anion Gap 12.9; Aspartate Amino Transferase 16 U/L (15-37); Blood Urea Nitrogen 20.0 mg/dL (7.0-18.0); Calcium 10.0 mg/dL (8.5-10.1); Carbon Dioxide 25.1 mmol/L (21.0-32.0); Chloride 103 mmol/L (98-107); Cholesterol 161 mg/dL (<=200); Estimated GFR (African America >60 (>=60 mL/min/1.73m^2); Estimated GFR (Non-African Ame >60 (>=60 mL/min/1.73m^2); Globulin 3.3 g/dL; Glucose 105 mg/dL (74-106); HDL Cholesterol 62 mg/dL (40-60); Potassium 4.0 mmol/L (3.5-5.1); Sodium 137 mmol/L (136-145); Total Protein 7.5 g/dL (6.4-8.2); Triglycerides 72 mg/dL (<=150); VLDL CHOLESTEROL 14.4 mg/dL
== END 2025-07-17 12:13 | disposition home or self-care (01) ==
LOC: LAB 12:16
DX: E78.2 Mixed hyperlipidemia (principal); I48.91 Unspecified atrial fibrillation; I44.1 Atrioventricular block, second degree; I27.20 Pulmonary hypertension, unspecified; I25.10 Atherosclerotic heart disease of native coronary artery without angina pectoris; I50.32 Chronic diastolic (congestive) heart failure; I11.0 Hypertensive heart disease with heart failure
CPT/HCPCS: 36415; 80053; 80061; 85025